=== PATIENT | female | born 1980 | race Caucasian/White ===

== ENCOUNTER 2020-04-08 14:09 | Emergency (ER) | payer OTHER, SELFPAY ==
[2020-04-08 14:50] VITALS: BP 110/74; PULSE 65; RESP 18; TEMP 36.6; O2SAT 100
--- NOTE | 2020-04-08 15:20 | ED.URI ---
HPI - URI/Sore Throat General Chief Complaint: Upper Respiratory Infection Stated Complaint: sore throat,ear pain Time Seen by Provider: 04/08/20 15:20 Source: patient Mode of arrival: ambulatory Limitations: no limitations History of Present Illness HPI Narrative: Beulah Fung is a 39 yo female with a PMH of DM, HTN, GERD, high cholesterol, depression, alopecia, who came to express care with us sore throat that is been bothering her since last Saturday. Has not gotten better Related Data Home Medications Medication Instructions Recorded Confirmed ertugliflozin [Steglatro] 15 mg DAILY 08/26/19 04/08/20 nadolol 20 mg tablet 40 mg PO DAILY tablet 11/19/19 04/08/20 Allergies Allergy/AdvReac Type Severity Reaction Status Date / Time sunflower oil Allergy Mild HEADACHES Verified 04/08/20 15:11 Review of Systems Review of Systems: Narrative: CONSTITUTIONAL: Denies fever, chills, sweats. EYES: Denies visual changes, redness, discharge. ENT: Denies rhinorrhea, congestion, has sore throat, no otalgia. CARDIOVASCULAR: Denies chest pain, palpitations, edema. RESPIRATORY: Denies dyspnea, wheezing, cough GASTROINTESTINAL: Denies abdominal pain, nausea, vomiting, diarrhea. GENITOURINARY: Denies dysuria, hematuria, abnormal discharge SKIN: Denies rash or itching. NEUROLOGIC: Denies numbness, or focal weakness. PSYCHIATRIC: Denies anxiety or depression. 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[facility] [place] Migraine without aura, not intractable, with status migrainosus (~1992) meds tried: midrin (helpful), imitrex (no help), zomig, topamax (helpful) Other and unspecified hyperlipidemia (~2018) Type 2 diabetes mellitus with other circulatory complications (~2006) Unspecified cirrhosis of liver (~2014) LOVE Surgical History Surgical History H/O left knee surgery H/O: hysterectomy History of cholecystectomy (~2018) Status post right foot surgery (~2018) Family History Family History Father Hypertension Cerebrovascular accident Family history of diabetes mellitus in first degree relative Diabetes mellitus Mother Hypertension Other Family history of Alzheimer's disease Family history of cardiovascular disease Family history of chronic obstructive pulmonary disease Family history of congestive heart failure Family history of hearing loss Family history of migraine headaches Family history of obesity Social History Social History Smoking status: Former smoker Smoking end date: 10/14/05 Alcohol intake: former Substance use: unknown Gender identity (if verbalized by the patient): Female Agree to blood products: Yes Comments At time of signature, I agree with nursing past medical, surgical, social and family history. There is no relevant family history pertinent to the presenting complaint. Exam Narrative: Exam Narrative: GENERAL: This is a well-nourished, well-developed patient, in mild distress. HEAD: normocephalic, atraumatic. EYES: Sclera clear/white. Vision is grossly intact. EARS: External ears normal, auditory canals clear and without drainage, TMs normal without perforation. Hearing grossly intact. NOSE: External nose normal without nasal discharge, nares without redness, no rhinorrhea. THROAT: Mucous membranes moist, posterior pharynx erythema with no exudate NECK: Neck supple, mild tenderness CARDIOVASCULAR: Regular rate and rhythm without murmurs, gallops, or rubs. RESPIRATORY: Clear to auscultation. Breath sounds equal bilaterally. No wheezes, rales, or rhon
== END 2020-04-08 15:45 | disposition home or self-care (01) ==
PROVIDERS: Emergency Provider Nurse Practitioner; PCP Family Medicine
DX: J02.9 Acute pharyngitis, unspecified (principal); E11.9 Type 2 diabetes mellitus without complications; I10 Essential (primary) hypertension; E78.00 Pure hypercholesterolemia, unspecified; K21.9 Gastro-esophageal reflux disease without esophagitis; K74.60 Unspecified cirrhosis of liver; K75.81 Nonalcoholic steatohepatitis (NASH); Z87.891 Personal history of nicotine dependence; Z79.4 Long term (current) use of insulin; Z79.84 Long term (current) use of oral hypoglycemic drugs
CPT/HCPCS: 87081; 87880; 99213; G0463

== ENCOUNTER 2020-05-05 13:12 | Emergency (ER) | payer OTHER, SELFPAY ==
[2020-05-05 13:36] VITALS: BP 116/82; PULSE 83; RESP 16; TEMP 36.8; O2SAT 98
--- NOTE | 2020-05-05 13:49 | ED.EXTPRO ---
HPI - Extremity Problem General Chief complaint: Extremity Problem,Nontraumatic Stated complaint: right hand /wrist pain Time Seen by Provider: 05/05/20 13:47 Source: patient and RN notes reviewed Mode of arrival: ambulatory Limitations: no limitations History of Present Illness HPI Narrative: 39-year-old female history of diabetes, hypertension, liver disease presents with concern for right wrist and hand pain for approximately 1 week without injury. She denies any direct trauma or injury. 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 Reports using Tylenol for pain, denies other intervention. Reports pain is at the lateral wrist and beneath digits 2 and 3 of the right hand. MD Complaint: extremity pain Related Data Home Medications Medication Instructions Recorded Confirmed nadolol 20 mg tablet 40 mg PO DAILY tablet 11/19/19 05/05/20 clonidine HCl 0.1 mg tablet 0.1 mg PO BID tablet 04/19/20 05/05/20 Allergies Allergy/AdvReac Type Severity Reaction Status Date / Time sunflower oil AdvReac Mild HEADACHES Verified 05/05/20 13:44 Review of Systems Review of Systems: Narrative: CONSTITUTIONAL: Denies malaise, chills, sweats, or fever. CARDIOVASCULAR: Denies chest pain, palpitations SKIN: Denies bruising, redness MUSCULOSKELETAL: Reports right hand pain beneath digits 2 and 3, right wrist pain NEUROLOGIC: Denies numbness, weakness. 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[facility] [place] Migraine without aura, not intractable, with status migrainosus (~1992) meds tried: midrin (helpful), imitrex (no help), zomig, topamax (helpful) Other and unspecified hyperlipidemia (~2018) Type 2 diabetes mellitus with other circulatory complications (~2006) Unspecified cirrhosis of liver (~2014) LOVE Social History Social History Smoking status: Former smoker Smoking end date: 10/14/05 Alcohol intake: former Substance use: unknown Gender identity (if verbalized by the patient): Female Agree to blood products: Yes Comments At time of signature, agree with nursing past medical, surgical, social and family history. There is no relevant family history pertinent to the presenting complaint Exam Narrative: Exam Narrative: GENERAL: Well-appearing, well-nourished, and in no acute distress. HEAD: Normocephalic, atraumatic. EYES: PERRLA, conjunctivae clear NECK: Supple. CHEST: Speaks in full sentences. No respiratory distress. HEART: Regular rate and rhythm. Normal and equal peripheral pulses. EXTREMITIES: Right wrist, hand, digits have normal strength and sensation, no edema, normal range of motion. 5/5 strength with wrist and digit flexion and extension. Normal sensation with sensitivity to light touch and pain. No open wounds, no skin tenting, no devitalized tissue or atrophy, no trophic changes, no ecchymosis, no obvious deformity, alignment normal, no point tenderness, nearby joints and structures intact. Distal pulses palpable and equal bilaterally, skin warm, dry, pink. Capillary refill less than 3 seconds. SKIN: Warm, dry, no rash. NEURO: Alert and oriented x3. PSYCH: Normal mood and affect Course Course Emergency Course: Patient is aware of diagnosis, understands and agrees to treatment plan. Anticipatory guidance given. Patient agrees to follow-up as directed and is aware of reasons to seek care at the emergency department. Portions of this record may have been created with voice recognition software Vital Signs Vital signs: Vital Signs Temperature 98.3 F
== END 2020-05-05 14:05 | disposition home or self-care (01) ==
PROVIDERS: Emergency Provider Nurse Practitioner; PCP Family Medicine
DX: M77.9 Enthesopathy, unspecified (principal); Z87.891 Personal history of nicotine dependence; E11.9 Type 2 diabetes mellitus without complications; I10 Essential (primary) hypertension
CPT/HCPCS: 99212; G0463

== ENCOUNTER 2021-01-11 09:44 | Outpatient (CLI) | payer OTHER, SELFPAY ==
--- NOTE | 2021-01-11 11:30 | NEURO_ITS ---
Impression: # Complains of pain and paresthesia of hands. # Mild bilateral Carpal Tunnel Syndrome. # Subtle right ulnar neuropathy across the elbow. # Normal needle/EMG exam. # Clinical correlation recommended. Nerve Conduction Studies Anti Sensory Summary Table Stim Site NR Peak (ms) P-T Amp (?V) Site1 Site2 Delta-P (ms) Dist (cm) Gerson (m/s) Left Median Anti Sensory (2-3nd Digit) Wrist 3.4 18.0 Wrist 2-3nd Digit 3.4 14.0 41 Wrist 3.3 69.6 Wrist 2-3nd Digit 3.4 14.0 41 Right Median Anti Sensory (2-3nd Digit) Wrist 3.8 24.5 Wrist 2-3nd Digit 3.8 14.0 37 Wrist 3.8 10.7 Wrist 2-3nd Digit 3.8 14.0 37 Left Radial Anti Sensory (Base 1st Digit) Wrist 2.5 11.6 Wrist Base 1st Digit 2.5 0.0 Right Radial Anti Sensory (Base 1st Digit) Wrist 2.5 30.6 Wrist Base 1st Digit 2.5 0.0 Left Ulnar Anti Sensory (5th Digit) Wrist 2.7 39.6 Wrist 5th Digit 2.7 14.0 52 Right Ulnar Anti Sensory (5th Digit) Wrist 2.7 10.3 Wrist 5th Digit 2.7 14.0 52 Motor Summary Table Stim Site NR Onset (ms) O-P Amp (mV) Site1 Site2 Delta-0 (ms) Dist (cm) Gerson (m/s) Left Median Motor (Abd Poll Brev) Wrist 4.1 4.0 Elbow Wrist 4.7 25.0 53 Elbow 8.8 3.9 Right Median Motor (Abd Poll Brev) Wrist 4.3 1.8 Elbow Wrist 4.2 25.0 60 Elbow 8.5 2.2 Left Ulnar Motor (Abd Dig Minimi) Wrist 2.9 2.6 A Elbow Wrist 4.6 27.0 59 A Elbow 7.5 2.4 Right Ulnar Motor (Abd Dig Minimi) Wrist 2.9 8.4 A Elbow Wrist 5.3 27.0 51 A Elbow 8.2 3.2 B Elbow Wrist 3.4 19.0 56 B Elbow 6.3 5.5 F Wave Studies NR F-Lat (ms) L-R F-Lat (ms) Left Median (Mrkrs) (Abd Poll Brev) 28.46 0.00 Right Median (Mrkrs) (Abd Poll Brev) 28.46 0.00 Left Ulnar (Mrkrs) (Abd Dig Min) 28.75 1.15 Right Ulnar (Mrkrs) (Abd Dig Min) 27.60 1.15 EMG Side Muscle Nerve Root Ins Act Fibs Amp Dur Recrt Comment Right 1stDorInt Ulnar C8-T1 Nml Nml Nml Nml Nml Right Ext Indicis Radial (Post Int) C7-8 Nml Nml Nml Nml Nml Right Ext Digitorum Radial (Post Int) C7-8 Nml Nml Nml Nml Nml Right BrachioRad Radial C5-6 Nml Nml Nml Nml Nml Right PronatorTeres Median C6-7 Nml Nml Nml Nml Nml Right Abd Poll Brev Median C8-T1 Nml Nml Nml Nml Nml Left 1stDorInt Ulnar C8-T1 Nml Nml Nml Nml Nml Left Ext Indicis Radial (Post Int) C7-8 Nml Nml Nml Nml Nml Left Ext Digitorum Radial (Post Int) C7-8 Nml Nml Nml Nml Nml Left BrachioRad Radial C5-6 Nml Nml Nml Nml Nml Left PronatorTeres Median C6-7 Nml Nml Nml Nml Nml Left Abd Poll Brev Median C8-T1 Nml Nml Nml Nml Nml MTDD
== END 2021-01-11 09:45 | disposition home or self-care (01) ==
PROVIDERS: PCP Family Medicine; Visit Provider Plastic Surgery
DX: R53.1 Weakness (principal); G56.03 Carpal tunnel syndrome, bilateral upper limbs; G56.21 Lesion of ulnar nerve, right upper limb
CPT/HCPCS: 95886; 95911

== ENCOUNTER → 2021-01-17 17:59 | Outpatient (CLI) | payer OTHER, SELFPAY ==
--- NOTE | ~2021-01-17 | XR_ITS ---
EXAMINATION: XR hand RT min 3V INDICATION: Right hand pain and swelling TECHNIQUE: Three views of the right hand are obtained. COMPARISON: None available FINDINGS: There is no fracture, dislocation, or subluxation. The bones, soft tissues, and joint space s are normal. IMPRESSION: 1. No acute osseous abnormality. Reviewed, dictated and finalized at location A.
== END ==
PROVIDERS: PCP Plastic Surgery; Visit Provider Plastic Surgery
DX: M19.041 Primary osteoarthritis, right hand (principal)
CPT/HCPCS: 73130

== ENCOUNTER 2021-02-03 14:05 | Outpatient (CLI) | payer OTHER, SELFPAY ==
--- NOTE | ~2021-02-03 | MR_ITS ---
EXAMINATION: MR hand RT wo con DATE: 02/03/2021 15:01 INDICATION: Subcutaneous mass between the right second and third metacarpals TECHNIQUE: Magnetic resonance imaging (MRI) of the right hand was performed without intravenous contr ast to include the metacarpals and digits. Sequences included sagittal, coronal, and axial proton-den sity weighted fast spin echo without and with fat saturation. COMPARISON: None FINDINGS: Bone alignment is normal. Normal marrow signal throughout with no fracture or pathologic marrow repla cing process. Joint spaces are normal with no joint effusions. No cortical erosions. The flexor and e xtensor tendons as well as the collateral ligament complex at the metacarpophalangeal and interphalan geal joints are normal. There is mildly prominent bulging of the fat at the dorsal aspect of the seco nd and third web spaces without a discrete encapsulated lipoma. No abnormal masses or fluid collectio ns identified. IMPRESSION: 1. Increased prominence of the subcutaneous fat about the base of the digits including at the region of concern at the dorsal aspect of the second web space without a discrete lipoma or other abnormal m asses or fluid collections. Reviewed, dictated and finalized at location A. IMPRESSION: 1. Increased prominence of the subcutaneous fat about the base of the digits in cluding at the region of concern at the dorsal aspect of the second web space w ithout a discrete lipoma or other abnormal masses or fluid collections.
== END 2021-02-03 14:06 | disposition home or self-care (01) ==
LOC: ANHIMG 14:07
PROVIDERS: PCP Family Medicine; Visit Provider Plastic Surgery
DX: R22.31 Localized swelling, mass and lump, right upper limb (principal)
CPT/HCPCS: 73218

== ENCOUNTER 2021-03-31 09:47 | Outpatient (CLI) | payer OTHER, SELFPAY ==
--- NOTE | 2021-03-31 | ECG_ITS ---
Measurements Intervals [place] Rate: 113 P: 24 MA: 144 QRS: 55 QRSD: 83 T: 54 QT: 324 QTc: 445 Interpretive Statements SINUS TACHYCARDIA DELAYED PRECORDIAL R/S TRANSITION BORDERLINE ST-T WAVE ABNORMALITY- DIFFUSE LEADS BASELINE ARTIFACT- II, III, AVF ABNORMAL ECG Electronically Signed On 03-31-2021 10:44:44 CDT by Everardo Seymour D.O.
== END 2021-03-31 09:48 | disposition home or self-care (01) ==
PROVIDERS: PCP Family Medicine
DX: Z01.818 Encounter for other preprocedural examination (principal); I10 Essential (primary) hypertension; R94.31 Abnormal electrocardiogram [ECG] [EKG]
CPT/HCPCS: 93005

== ENCOUNTER 2022-05-21 14:21 | Emergency (ER) | payer OTHER, SELFPAY ==
--- NOTE | ~2022-05-21 | XR_ITS ---
EXAM: XR knee RT min 4V DATE: 05/21/2022 16:40 HISTORY: grinding popping . COMPARISON: 11/18/2014. FINDINGS: Decreased mineralization. No fracture or dislocation. No lytic or blastic lesion. Mild tri compartmental osteoarthritis. No erosion or periosteal change. Soft tissues within normal limits. IMPRESSION: No acute osseous finding in the right knee. Reviewed, dictated and finalized at location K.
--- NOTE | ~2022-05-21 | XR_ITS ---
XR ankle RT min 3V 05/21/2022 16:39 INDICATION: Right ankle pain PROCEDURE: 4 views right ankle COMPARISON: No prior studies for comparison. FINDINGS: Fracture, dislocation or subluxation is not identified. There is a possible talocalcaneal c oalition. Mild diffuse soft tissue swelling. No foreign bodies are identified. IMPRESSION: 1: NO ACUTE BONE OR JOINT ABNORMALITY IDENTIFIED. Reviewed, dictated and finalized at location A.
[2022-05-21 14:55] VITALS: BP 115/62; PULSE 90; RESP 16; TEMP 36.2; O2SAT 100
--- NOTE | 2022-05-21 15:01 | ED.LOWEXIN ---
HPI - Extremity Injury (Lower) General Chief Complaint: Extremity Injury, Lower Stated Complaint: Right Knee and ankle Pain Time Seen by Provider: 05/21/22 15:02 Source: patient, RN notes reviewed and old records reviewed Mode of arrival: ambulatory Limitations: no limitations History of Present Illness HPI Narrative: 41-year-old female presents to the [facility] with complaints of right knee and right ankle pain for 10 days. Patient reports that she went to get off the plane while on vacation and her knee and ankle locked causing a possible twisting injury. Mild swelling noted to the lateral aspect right ankle. Full range of motion of knee and ankle. Positive pedal pulse. Sensation intact in all 5 toes with capillary refill under 2 seconds Related Data Home Medications Medication Instructions Recorded Confirmed ondansetron 4 mg disintegrating 4 mg PO DAILY PRN Nausea 09/13/20 05/21/22 tablet hydroxyzine pamoate 25 mg capsule 25 mg PO Q4H PRN Anxiety 10/24/20 05/21/22 (Vistaril) Allergies Allergy/AdvReac Type Severity Reaction Status Date / Time sunflower oil AdvReac Mild HEADACHES Verified 05/21/22 15:04 Review of Systems Review of Systems: All systems reviewed & are unremarkable except as noted in HPI and below Constitutional: Constitutional: Reports no additional constitutional complaints, Denies chills and Denies fever(s) Eyes: Eyes: Reports no additional eye complaints ENT: Reports system reviewed and no additional complaints, except as documented Cardiovascular: Cardiovascular: Reports no additional cardiovascular complaints Respiratory: Respiratory: Reports no additional respiratory complaints Gastrointestinal: Gastrointestinal: Reports no additional gastrointestinal complaints Musculoskeletal: Musculoskeletal: Reports as per HPI, Reports arthralgias and Reports joint swelling Integumentary/Breasts: Skin/Breast: Reports system reviewed and no additional complaints, except as docu Neurologic: Reports system reviewed and no additional complaints, except as documented Psychiatric: Psychiatric: Reports no additional psychiatric complaints Allergic/Immunologic: Allergic/Immunologic: Reports no additional allergic/immunologic complaints [facility], [facility] Past Medical History Medical History Abnormal CT of brain Abnormal vaginal bleeding Acute bilateral otitis media Alopecia Anxiety and depression Avulsion fracture of right calcaneus with delayed healing (~2016) Benign essential hypertension Bipolar 2 disorder Body mass index (BMI) 21 to less than 23 (04/06/16) Body mass index (BMI) 35 or more (05/05/19) Cat scratch of forearm Chronic GERD Dyslipidemia Ganglion cyst HTN (hypertension) Hx of renal calculi (~07/2021) Hyperlipidemia associated with type 2 diabetes mellitus (~2018) Hypertension complicating diabetes (~2013) Iron deficiency anemia due to chronic blood loss (~2016) 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: [facility] Microalbuminuria due to type 2 diabetes mellitus (~2017) Migraine without aura, not intractable, with status migrainosus (~1992) meds tried: midrin (helpful), imitrex (no help), zomig, topamax (helpful) Nausea & vomiting Other and unspecified hyperlipidemia (~2018) Portal hypertension (~07/2021) Recurrent major depressive disorder in partial remission (~1992) Renal cyst, acquired (~2011) Right otitis media Type 2 diabetes mellitus with hyperglycemia Type 2 diabetes mellitus with other circulatory complications (~2006) Unspecified cirrhosis of liver (~2014) LOVE Vaginal yeast infection Vitamin D deficiency Surgical History Surgical History H/O left knee surgery H/O: hysterectomy History of cholecystectomy (~2017) History of urethral stent (~07/2021) Status post right foot surgery (~2017) Family History Family History (Reviewed 05/22/22 @ 09:57 by Jacqueline Watkins A
== END 2022-05-21 17:16 | disposition home or self-care (01) ==
PROVIDERS: Emergency Provider Nurse Practitioner; PCP Nurse Practitioner Family
DX: M17.11 Unilateral primary osteoarthritis, right knee (principal); S93.401A Sprain of unspecified ligament of right ankle, initial encounter; X58.XXXA Exposure to other specified factors, initial encounter; F41.9 Anxiety disorder, unspecified; I10 Essential (primary) hypertension; E78.5 Hyperlipidemia, unspecified; E11.9 Type 2 diabetes mellitus without complications; K75.81 Nonalcoholic steatohepatitis (NASH); K21.9 Gastro-esophageal reflux disease without esophagitis; F32.A Depression, unspecified; Z79.4 Long term (current) use of insulin
CPT/HCPCS: 73564; 73610; 99214; G0463

== ENCOUNTER 2022-06-08 00:51 | Day surgery (SDC) | payer OTHER, SELFPAY ==
[2022-06-01 14:33] VITALS: BMI 42.0
[2022-06-08 08:50] VITALS: BP 129/84; PULSE 95; RESP 20; TEMP 36; O2SAT 100; BMI 42.9
[2022-06-08] MEDS: LACTATED RINGERS 1,000 ML 150 ML IV CONT (09:15)
[2022-06-08 09:17] LABS: Glucose Point of Care 237 mg/dl (65-105)
--- NOTE | 2022-06-08 09:30 | WPDANESEPPF ---
Anes - Initial Pre Proc Eval Procedure: Operation Date: 06/08/22 09:30 Proposed Procedures p Esophagogastroduodenoscopy - Rl Farfan MD Date/Time: 06/08/22 09:30 Surgeon: Rl Farfan MD Pre Op Diagnosis: nausea, GERD Patient Data Age: 41 Gender: F Height: 1.55 m Weight: 103 kg Last Vital Signs Temp 96.8 F L 06/08/22 08:50 Pulse 95 06/08/22 08:50 Resp 20 06/08/22 08:50 BP 129/84 06/08/22 08:50 Pulse Ox 100 06/08/22 08:50 O2 Del Method Room Air 06/08/22 08:50 Allergies Allergy/AdvReac Type Severity Reaction Status Date / Time sunflower oil Allergy Intermediate Hives Verified 06/08/22 08:57 Home Medications Medication Instructions Recorded Confirmed Type ondansetron 4 mg disintegrating 4 mg PO DAILY PRN Nausea 09/13/20 06/08/22 History tablet albuterol sulfate 90 mcg/actuation 1 puff inhalation Q4H PRN 09/19/20 06/08/22 Rx aerosol inhaler shortness of breath or wheezing #6.7 grams hydroxyzine pamoate 25 mg capsule 25 mg PO Q4H PRN Anxiety 10/24/20 06/08/22 History (Vistaril) glucagon 3 mg/actuation nasal 3 mg intranasal ONCE PRN 07/06/21 06/08/22 Rx spray (Baqsimi) hypoglycemia #1 ea duloxetine 30 mg capsule,delayed 30 mg PO BID #180 caps 09/22/21 06/08/22 Rx release cholecalciferol (vitamin D3) 50 50 mcg PO DAILY #30 caps 10/31/21 06/08/22 Rx mcg (2,000 unit) capsule atorvastatin 80 mg tablet 80 mg PO QHS #90 tabs 11/30/21 06/08/22 Rx betamethasone valerate 0.1 % 1 applic topical BID PRN rash #45 01/22/22 06/08/22 Rx topical cream grams clotrimazole 1 % topical cream 1 applic topical Q12H 8 weeks #45 01/22/22 06/08/22 Rx grams dexlansoprazole 60 mg 60 mg PO DAILY #30 caps 03/19/22 06/08/22 Rx capsule,biphase delayed release (Dexilant) lisinopril 2.5 mg tablet 2.5 mg PO DAILY #90 tabs 03/30/22 06/08/22 Rx topiramate 200 mg tablet (Topamax) 200 mg PO DAILY #30 tabs 04/24/22 06/08/22 Rx clonidine HCl 0.1 mg tablet 0.1 mg PO BID #60 tabs 05/24/22 06/08/22 Rx dicyclomine 20 mg tablet 20 mg PO TID PRN abdominal 05/28/22 06/08/22 Rx discomfort 1 month #90 tabs OneTouch Verio test strips (blood #100 ea 05/29/22 06/08/22 Rx sugar diagnostic) dulaglutide 1.5 mg/0.5 mL 1.5 mg (0.5 mL) subcut WEEKLY 90 05/29/22 06/08/22 Rx subcutaneous pen injector days #6 mL (Trulicity) [id number]-[id number] 250 2 tablet PO Q6H PRN Migraine 06/01/22 06/08/22 History mg-250 mg-65 mg tablet (Excedrin Headache Migraine) diphenhydramine HCl 25 mg capsule 25 mg PO TID PRN itching 06/01/22 06/08/22 History (Benadryl) quetiapine 50 mg tablet 100 mg PO HS 06/01/22 06/08/22 History trazodone 100 mg tablet 100 mg PO HS 06/01/22 06/08/22 History buspirone 10 mg tablet 10 mg PO BID 06/04/22 06/08/22 History insulin regular hum U-500 conc 500 65 unit (0.13 mL) subcut BIDWMEAL 06/04/22 06/08/22 Rx unit/mL(3 mL) subcut pen 90 days #24 mL cyclobenzaprine 10 mg tablet 10 mg PO TID PRN muscle spasm #30 06/07/22 06/08/22 Rx tabs Laboratory Tests 06/08/22 09:12 POC Capillary Glucose 237 mg/dl H mg/dl (65-105) Patient hx anesthesia problems: none Family hx anesthesia problems: none Results Review: All pre-operative results and documents have been reviewed as part of the pre-operative evaluation. [facility] Past Medical History Medical History Abnormal CT of brain Abnormal vaginal bleeding Acute bilateral otitis media Alopecia Anxiety and depression Avulsion fracture of right calcaneus with delayed healing (~2016) Benign essential hypertension Bipolar 2 disorder Body mass index (BMI) 21 to less than 23 (04/06/16) Body mass index (BMI) 35 or more (05/05/19) Cat scratch of forearm Chronic GERD Cirrhosis Dyslipidemia Ganglion cyst HTN (hypertension) Hx of renal calculi (~07/2021) Hyperlipidemia associated with type 2 diabetes mellitus (
--- NOTE | 2022-06-08 09:34 | WPDHPUPDATE1 ---
History and Physical Update Update Date/Time: 06/08/22 09:34 History and Physical has been reviewed, including an updated exam of the patient. There are NO changes in the patient's condition. Risks, benefits, and alternatives have been discussed and questions answered. Patient agrees to proceed with procedure.
[2022-06-08 09:46] VITALS: BP 156/99; PULSE 99; RESP 31; O2SAT 100
[2022-06-08 09:56] VITALS: BP 134/87; PULSE 93; RESP 14; O2SAT 100
[2022-06-08 10:06] VITALS: BP 151/95; PULSE 88; RESP 13; O2SAT 100
[2022-06-08 10:13] LABS: Glucose Point of Care 185 mg/dl (65-105)
== END 2022-06-08 10:16 | disposition home or self-care (01) ==
PROVIDERS: PCP Nurse Practitioner Family; Visit Provider Internal Medicine Gastroenterology
PROC: 0DJ08ZZ Inspection of Upper Intestinal Tract, Via Natural or Artificial Opening Endoscopic (ICD-10-PCS; CPT 43235; principal; 2022-06-08 09:30)
DX: K74.60 Unspecified cirrhosis of liver (principal); K21.9 Gastro-esophageal reflux disease without esophagitis; R11.0 Nausea; I85.00 Esophageal varices without bleeding; K29.50 Unspecified chronic gastritis without bleeding; Z79.82 Long term (current) use of aspirin; Z79.4 Long term (current) use of insulin; Z79.51 Long term (current) use of inhaled steroids; L65.9 Nonscarring hair loss, unspecified; F31.81 Bipolar II disorder; I10 Essential (primary) hypertension; E78.5 Hyperlipidemia, unspecified; K58.9 Irritable bowel syndrome, unspecified; K76.6 Portal hypertension; K31.89 Other diseases of stomach and duodenum; E11.59 Type 2 diabetes mellitus with other circulatory complications; K75.81 Nonalcoholic steatohepatitis (NASH); E55.9 Vitamin D deficiency, unspecified; Z90.49 Acquired absence of other specified parts of digestive tract; Z87.891 Personal history of nicotine dependence; E66.01 Morbid (severe) obesity due to excess calories; Z68.41 Body mass index [BMI] 40.0-44.9, adult; R11.2 Nausea with vomiting, unspecified; R12 Heartburn; N28.1 Cyst of kidney, acquired; R80.8 Other proteinuria
CPT/HCPCS: 43239; 82948; 88305; J2704; J7120

== ENCOUNTER 2022-11-17 17:59 | Emergency (ER) | payer OTHER, SELFPAY ==
--- NOTE | ~2022-11-17 | CT_ITS ---
CT Abdomen and Pelvis with contrast. History: Abdominal pain. Spiral CT of the abdomen and pelvis was performed after the administration of intravenous contrast. 1 00 cc of Omnipaque 350 was administered intravenously without complication. Dose reduction technique was used on this scan by utilizing automated exposure control and iterative reconstruction technique. The dose-length product (DLP) was 1851.80 mGy-cm. COMPARISON: 06/02/2012 Findings: Scans through the lung bases demonstrate mild atelectatic change. Probable nodular contour of the liver. Spleen is enlarged, measuring 18.3 cm in length. Cholecystecto my clips are present. 2 mm nonobstructing right renal stones are present. The pancreas, adrenals and left kidney are within normal limits. No evidence of aortic aneurysm. No lymphadenopathy is seen. There is no evidence of bowel obstruction. There is no evidence to suggest acute appendicitis or dive rticulitis. Images through the pelvis were performed. Urinary bladder unremarkable. Patient is post hysterectomy. No pelvic mass seen. No ascites. No ascites is seen. Impression: No evidence for perirectal abscess. Probable cirrhotic liver with associated splenomegaly. Small nonobstructing right renal stones. Reviewed, dictated and finalized at [facility]. 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 Probable cirrhotic liver with associated splenomegaly. Small nonobstructing right renal stones.
[2022-11-17 18:07] VITALS: BP 154/94; PULSE 76; RESP 15; TEMP 36.7; O2SAT 100
--- NOTE | 2022-11-17 18:29 | ED.GENADULT ---
HPI - General Adult General Chief complaint: Unspecified Stated complaint: hemorrhoids/pain Time Seen by Provider: 11/17/22 18:29 Source: patient Mode of arrival: ambulatory Limitations: no limitations History of Present Illness HPI narrative: Patient is a 42 y/o female who presents to the ED with c/o rectal discomfort. Patient reports she had a colonoscopy in August of last year which showed internal hemorrhoids. Patient reports having pain over the last 2 weeks which she has attributed to her hemorrhoids. She has been using Preparation H ointments without much relief. She has had intermittent bleeding associated with the hemorrhoids. She also complains of some lower abdominal pain, but denies fever, nausea, vomiting, urinary symptoms. Patient sees a GI specialist at [facility], but has not contacted him regarding the symptoms. Related Data Home Medications Medication Instructions Recorded Confirmed ondansetron 4 mg disintegrating 4 mg PO DAILY PRN Nausea 09/13/20 10/25/22 tablet hydroxyzine pamoate 25 mg capsule 25 mg PO Q4H PRN Anxiety 10/24/20 10/25/22 (Vistaril) eqyalii-phuzybbteitpu-etcqbsyb 250 2 tablet PO Q6H PRN Migraine 06/01/22 10/25/22 mg-250 mg-65 mg tablet (Excedrin Headache Migraine) diphenhydramine HCl 25 mg capsule 25 mg PO TID PRN itching 06/01/22 10/25/22 (Benadryl) atorvastatin 80 mg tablet 80 mg PO QHS 10/25/22 10/25/22 buspirone 15 mg tablet 15 mg PO BID 10/25/22 10/25/22 dexlansoprazole 60 mg 60 mg PO DAILY 10/25/22 10/25/22 capsule,biphase delayed release quetiapine 50 mg tablet 100 mg PO QAM 10/25/22 10/25/22 quetiapine 50 mg tablet,extended 100 mg PO QPM 10/25/22 10/25/22 release 24 hr trazodone 150 mg tablet 150 mg PO QHS 10/25/22 10/25/22 Allergies Allergy/AdvReac Type Severity Reaction Status Date / Time sunflower oil Allergy Intermediate Hives Verified 11/14/22 11:03 Review of Systems Review of Systems: CONSTITUTIONAL: Denies fever, chills, or sweats. CARDIOVASCULAR: Denies chest pain, palpitations, or edema. RESPIRATORY: Denies cough or dyspnea. GASTROINTESTINAL: See HPI. GENITOURINARY: Denies dysuria or hematuria. All systems reviewed & are unremarkable except as noted in HPI and below [facility] Past Medical History Medical History Abnormal CT of brain Abnormal vaginal bleeding Acute bilateral otitis media Alopecia Anxiety and depression Avulsion fracture of right calcaneus with delayed healing (~2016) Benign essential hypertension Bipolar 2 disorder BMI 40.0-44.9, adult BMI greater than 30 Body mass index (BMI) 21 to less than 23 (04/06/16) Body mass index (BMI) 35 or more (05/05/19) Cat scratch of forearm Chronic GERD Cirrhosis Dyslipidemia Esophageal varices determined by endoscopy Ganglion cyst Gastroesophageal reflux disease HTN (hypertension) Hx of renal calculi (~07/2021) Hyperlipidemia associated with type 2 diabetes mellitus (~2018) Hypertension complicating diabetes (~2013) Iron deficiency anemia due to chronic blood loss (~2016) 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: [facility] Irritable bowel syndrome with alternating bowel habits Microalbuminuria due to type 2 diabetes mellitus (~2017) Migraine without aura, not intractable, with status migrainosus (~1992) meds tried: midrin (helpful), imitrex (no help), zomig, topamax (helpful) Nausea & vomiting Other and unspecified hyperlipidemia (~2018) Portal hypertension (~07/2021) Portal hypertensive gastropathy Recurrent major depressive disorder in partial remission (~1992) Renal cyst, acquired (~2011) Right otitis media Type 2 diabetes mellitus with hyperglycemia Type 2 diabetes mellitus with other circulatory complications (~2006) Unspecified cirrhosis of liver (~2014) LOVE Vaginal yeast infection Vitamin D deficiency Surgical History Surgical History H/O l
[2022-11-17 19:06] VITALS: BP 134/87; PULSE 72; RESP 16; O2SAT 99
[2022-11-17 19:08] LABS: Alanine Aminotransferase 36 U/L (6-35); Albumin Level 3.6 g/dL (3.5-5.1); Alkaline Phosphatase 157 U/L (38-126); Anion Gap 6 mmol/L (8-16); Aspartate Amino Transferase 34 U/L (14-36); Bilirubin,Total 0.7 mg/dL (0.2-1.3); Blood Urea Nitrogen 21 mg/dL (7-17); Calcium 8.4 mg/dL (8.4-10.2); Carbon Dioxide 24 mmol/L (22-30); Chloride 103 mmol/L (98-107); Estimated CRCL calculation 82 ml/min; Estimated Glomerular Filt Rate > 60; Glucose 602 mg/dL (65-110); Potassium 4.3 mmol/L (3.4-5.0); Sodium 133 mmol/L (137-145)
[2022-11-17 19:43] LABS: Beta-Hydroxybutyrate/Acetoacetate 0.25 mmol/L (0.02-0.27)
[2022-11-17] MEDS: SODIUM CHLORIDE 0.9% IV 1,000 ML 999 ML IV CONT (19:55)
[2022-11-17 19:56] LABS: Basophils Percent Auto 0.6 % (0.2-1.2); Eosinophils Absolute Auto 0.1 K/mm3 (0-0.3); Eosinophils Percent Auto 2.1 % (0-4.4); Hematocrit 37.4 % (37.0-47.0); Hemoglobin 12.4 g/dL (12.0-15.0); Immature Granulocyte Absolute 0.02 K/mm3 (0.00-0.031); Immature Granulocyte Percent A 0.6 % (0-0.5); Immature Platelet Fraction Pct 8.8 % (0.9-11.2); Lymphocytes Absolute Auto 0.81 K/mm3 (0.9-3.2); Lymphocytes Percent Auto 24.5 % (18.3-44.2); Mean Corpuscular HGB Conc 33.2 g/dl (32-36); Mean Corpuscular Hemoglobin 27.6 pg (26-34); Mean Corpuscular Volume 83.1 fl (80-100); Mean Platelet Volume 11.2 fl (7.4-10.4); Monocytes Absolute Auto 0.3 K/mm3 (0.1-0.6); Monocytes Percent Auto 7.6 % (2.6-8.5); Neutrophils Absolute Auto 2.1 K/mm3 (1.3-6.7); Neutrophils Percent Auto 64.6 % (45.5-73.1); Platelet Count Result 59 k/mm3 (150-375); Red Cell Distribution Width 14.5 % (11.5-14.5); White Blood Count 3.3 K/mm3 (4.5-10.0)
[2022-11-17 19:58] LABS: Appearance Urine Clear (Clear); Bilirubin Urine Negative (Negative); Blood Urine Negative (Negative); Color Urine Yellow (Yellow); Glucose Urine UA 3+ mg/dL (Negative); Ketones Urine Negative (Negative); Leukocyte Esterase Ur Negative LEU/UL (Negative); Mucus Urine Rare /lpf; Nitrate Urine Negative (Negative); Protein Urine Negative (Negative); RBC Urine 0-2 /hpf (0-2); Squamous Epithelial Cell Urine Many /hpf (Few); WBC Urine 0-3 /hpf; pH Urine 6.5 (5.0-9.0)
[2022-11-17 20:01] LABS: Add Urine Microscopic? YES
--- NOTE | 2022-11-17 20:01 | PC.NURSE ---
pt to CT via stretcher
[2022-11-17 20:28] LABS: Hemoglobin A1C 10.1 % (<5.7)
[2022-11-17 20:44] VITALS: BP 137/69; PULSE 68; RESP 18; O2SAT 98
[2022-11-17 20:54] LABS: Glucose Point of Care 441 mg/dl (65-105)
[2022-11-17 22:16] VITALS: BP 145/85; PULSE 71; RESP 18; O2SAT 98
== END 2022-11-17 22:44 | disposition home or self-care (01) ==
PROVIDERS: Emergency Provider Physician Assistant; PCP Family Medicine
DX: K64.9 Unspecified hemorrhoids (principal); E11.65 Type 2 diabetes mellitus with hyperglycemia; D69.6 Thrombocytopenia, unspecified; E78.5 Hyperlipidemia, unspecified; I10 Essential (primary) hypertension; Z87.891 Personal history of nicotine dependence
CPT/HCPCS: 36415; 74177; 80053; 81001; 82010; 82948; 83036; 85025; 85055; 96360; 99284; J7030; Q9967

== ENCOUNTER 2022-12-06 16:00 | Outpatient (CLI) | payer OTHER, SELFPAY ==
--- NOTE | ~2022-12-06 | US_ITS ---
EXAMINATION: US renal BI DATE: 12/06/2022 17:37 INDICATION: Calculus of kidney. TECHNIQUE: Multiple ultrasound grayscale images of the kidneys were obtained. COMPARISON: CT abdomen and pelvis 11/17/2022 FINDINGS: The right kidney measures 13.2 x 5.9 x 6.0 cm. The left kidney measures 12.6 x 4.5 x 5.7 cm. The kidn eys demonstrate normal parenchymal echogenicity. There is a 2.1 cm cyst in left kidney. There is no h ydronephrosis. The bladder is not well distended. IMPRESSION: 1. Normal kidney sizes. No hydronephrosis. Reviewed, dictated and finalized at location [facility]. 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
== END 2022-12-06 16:01 | disposition home or self-care (01) ==
PROVIDERS: PCP Family Medicine; Visit Provider Internal Medicine Nephrology
DX: N28.1 Cyst of kidney, acquired (principal); N20.0 Calculus of kidney
CPT/HCPCS: 76775

== ENCOUNTER 2022-12-25 09:22 | Outpatient (CLI) | payer OTHER, SELFPAY ==
--- NOTE | ~2022-12-25 | NM_ITS ---
EXAM: NM gastric emptying study DATE: 12/25/2022 14:17 INDICATION: Nausea and vomiting. TECHNIQUE: A gastric emptying study was performed using the methodology of Nicanor MENDEZ, et al. J Nucl Med 2007; 48:568-572. The patient was given a meal consisting of omental labeled with 0.891 mCi Tc-9 9m sulfur colloid. Simultaneous anterior and posterior 1-min images of the abdomen were obtained with the patient supine at multiple time points over a total period of 4 hours. The geometric mean of ant erior and posterior views was determined, and the percentage retention was calculated for each time p oint. COMPARISON: CT abdomen and pelvis 11/17/2022 FINDINGS: Gastric retention of the radiotracer-labeled meal was 5%, 5%, and 3% at the 1-hour, 2-hour , and 4-hour time points, respectively. With this technique, apparent rapid gastric emptying is sugge sted by <30% gastric retention at 1 hour. Delayed gastric emptying is defined by gastric retention of >90% at 1 hour, >60% retention at 2 hours, or >10% retention at 4 hours. IMPRESSION: 1. Rapid gastric emptying. Reviewed, dictated and finalized at location [facility]. IMPRESSION: 1. Rapid gastric emptying.
== END 2022-12-25 09:23 | disposition home or self-care (01) ==
PROVIDERS: PCP Family Medicine; Referring Provider Podiatrist Foot & Ankle Surgery; Visit Provider Nurse Practitioner Family
DX: R11.2 Nausea with vomiting, unspecified (principal); M79.671 Pain in right foot; K31.84 Gastroparesis
CPT/HCPCS: 73630; 78264; A9541

== ENCOUNTER 2023-01-15 11:00 | Outpatient (RCR) | payer OTHER, SELFPAY ==
[2023-01-15 13:22] VITALS: BMI 47.9
[2023-01-15 15:08] VITALS: BMI 47.9
== END 2023-03-18 14:06 | disposition home or self-care (01) ==
LOC: ANHDMC 11:00
PROVIDERS: PCP Family Medicine; Referring Provider Family Medicine; Visit Provider Nurse Practitioner Family
DX: E11.65 Type 2 diabetes mellitus with hyperglycemia (principal); Z79.4 Long term (current) use of insulin; Z71.89 Other specified counseling; Z71.3 Dietary counseling and surveillance
CPT/HCPCS: 97802; G0108

== ENCOUNTER 2023-02-06 14:52 | Outpatient (CLI) | payer OTHER, SELFPAY ==
--- NOTE | ~2023-02-06 | MM_ITS ---
EXAMINATION: MM screening ruben BI w talia HISTORY: Screening mammogram TECHNIQUE: Craniocaudal and mediolateral oblique 3-D tomosynthesis images were obtained and synthetic 2-D images were generated. CAD analysis was submitted and interpreted. COMPARISON: No prior mammogram is available for comparison at this institution. BREAST PARENCHYMAL COMPOSITION: There are scattered areas of fibroglandular density. FINDINGS: There is no evidence of suspicious mass, calcification, or architectural distortion to sugg est malignancy in either breast. There has been no suspicious interval change. IMPRESSION: 1. No mammographic evidence of malignancy. 2. Recommend routine screening mammography in one year. BI-RADS Category 1: Negative Reviewed, dictated and finalized at location A.
== END 2023-02-06 14:53 | disposition home or self-care (01) ==
LOC: ANHIMG 14:54
PROVIDERS: PCP Family Medicine; Visit Provider Nurse Practitioner Family
DX: Z12.31 Encounter for screening mammogram for malignant neoplasm of breast (principal)
CPT/HCPCS: 77063; 77067

== ENCOUNTER 2023-05-27 09:58 | Outpatient (CLI) | payer OTHER, SELFPAY ==
[2023-05-27 13:07] LABS: Basophils Percent Auto 0.7 % (0.2-1.2); Eosinophils Absolute Auto 0.1 K/mm3 (0-0.3); Eosinophils Percent Auto 2.1 % (0-4.4); Hematocrit 39.5 % (37.0-47.0); Hemoglobin 12.4 g/dL (12.0-15.0); Immature Granulocyte Absolute 0.01 K/mm3 (0.00-0.031); Immature Granulocyte Percent A 0.2 % (0-0.5); Immature Platelet Fraction Pct 8.8 % (0.9-11.2); Lymphocytes Absolute Auto 1.18 K/mm3 (0.9-3.2); Lymphocytes Percent Auto 19.3 % (18.3-44.2); Mean Corpuscular HGB Conc 31.4 g/dl (32-36); Mean Corpuscular Hemoglobin 28.8 pg (26-34); Mean Corpuscular Volume 91.9 fl (80-100); Mean Platelet Volume 12.2 fl (7.4-10.4); Monocytes Absolute Auto 0.4 K/mm3 (0.1-0.6); Monocytes Percent Auto 6.2 % (2.6-8.5); Neutrophils Absolute Auto 4.4 K/mm3 (1.3-6.7); Neutrophils Percent Auto 71.5 % (45.5-73.1); Platelet Count Result 74 k/mm3 (150-375); Red Cell Distribution Width 15.6 % (11.5-14.5); White Blood Count 6.1 K/mm3 (4.5-10.0)
[2023-05-27 13:09] LABS: Cholesterol 143 mg/dL (0-200); HDL Direct 40 mg/dL; Triglycerides 207 mg/dL (<150)
[2023-05-27 13:19] LABS: LDL Cholesterol Direct 72 mg/dL
[2023-05-27 13:27] LABS: Vitamin D 25 Hydroxy 45.3 ng/mL
== END 2023-05-27 09:59 | disposition home or self-care (01) ==
LOC: ANHGOSHLAB 10:01
PROVIDERS: PCP Family Medicine; Visit Provider Nurse Practitioner Family
DX: Z00.00 Encounter for general adult medical examination without abnormal findings (principal); Z13.220 Encounter for screening for lipoid disorders; Z13.29 Encounter for screening for other suspected endocrine disorder; Z13.21 Encounter for screening for nutritional disorder
CPT/HCPCS: 36415; 80061; 82306; 84443; 85025; 85055

== ENCOUNTER 2023-07-31 11:18 | Outpatient (CLI) | payer OTHER, SELFPAY ==
[2023-07-31 17:15] LABS: Appearance Urine Cloudy (Clear); Bacteria Urine 1+ /hpf; Bilirubin Urine Negative (Negative); Blood Urine Negative (Negative); Color Urine Dark Yellow (Yellow); Glucose Urine UA Negative (Negative); Hyaline Casts Urine Present /lpf; Ketones Urine Trace mg/dL (Negative); Leukocyte Esterase Ur Negative LEU/UL (Negative); Nitrate Urine Negative (Negative); Non Pathogenic Casts 0-2; Protein Urine Negative (Negative); RBC Urine 0-2 /hpf (0-2); Specific Grav Ur 1.026 (1.001-1.035); Squamous Epithelial Cell Urine Moderate /hpf (Few); WBC Urine 0-5 /hpf; pH Urine 6.5 (5.0-9.0)
[2023-07-31 17:25] LABS: Add Urine Microscopic? YES
== END 2023-07-31 11:19 | disposition home or self-care (01) ==
LOC: ANHWCLAB 11:18
PROVIDERS: PCP Family Medicine; Visit Provider Internal Medicine Endocrinology, Diabetes & Metabolism
DX: R10.9 Unspecified abdominal pain (principal); R35.0 Frequency of micturition
CPT/HCPCS: 81001

== ENCOUNTER 2023-08-29 14:58 | Outpatient (CLI) | payer OTHER, SELFPAY ==
--- NOTE | ~2023-08-29 | MR_ITS ---
MRI of the left knee Clinical history: Pain Technique: Coronal proton density and proton density-weighted images, sagittal proton-density and T2 fat-sat images, and axial proton-density fat-saturated images were acquired. Findings: Anterior and posterior cruciate ligaments are intact. Medial collateral ligament and the la teral collateral ligament complex are intact. Popliteus tendon is intact. Medial and lateral menisci are intact, without evidence of tear. There is mild to moderate chondral malacia the patellar apex. Remaining articular cartilage is well p reserved. Bone marrow signals are unremarkable. Extensor mechanism is intact. No significant joint effusion or Kwan's cyst. 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 No other significant findings. Reviewed, dictated and finalized at location . 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 No other significant findings.
== END 2023-08-29 14:59 | disposition home or self-care (01) ==
PROVIDERS: PCP Family Medicine; Visit Provider Nurse Practitioner Family
DX: M25.562 Pain in left knee (principal); M94.262 Chondromalacia, left knee
CPT/HCPCS: 73721

== ENCOUNTER 2024-02-05 13:47 | Outpatient (CLI) | payer OTHER, SELFPAY ==
--- NOTE | ~2024-02-05 | XR_ITS ---
Clinical Indication: Shortness of breath PA and lateral views of the chest: Comparison: None Findings: The lungs are clear, without evidence of focal consolidation or pleural effusion. Cardiome diastinal silhouette is within normal limits. Bones and soft tissues are unremarkable. Impression: Normal chest. Reviewed, dictated and finalized at [facility]. Impression: Normal chest.
== END 2024-02-05 13:48 | disposition home or self-care (01) ==
LOC: ANHIMG 13:48
PROVIDERS: PCP Nurse Practitioner Family; Visit Provider Nurse Practitioner Family
DX: R06.02 Shortness of breath (principal)
CPT/HCPCS: 71046

== ENCOUNTER 2024-08-04 02:32 | Day surgery (SDC) | payer OTHER, SELFPAY ==
[2024-07-24 08:58] VITALS: BMI 39.5
[2024-08-04] VITALS (7 sets, daily range): BP systolic 79–103; BP diastolic 43–70; PULSE 81–93; RESP 15–20; TEMP 36; O2SAT 98–100; BMI 37.4
--- NOTE | 2024-08-04 09:46 | WPDANESEPPF ---
Anes - Initial Pre Proc Eval Procedure: Operation Date: 08/04/24 11:00 Proposed Procedures p Esophagogastroduodenoscopy - Rl Farfan MD Date/Time: 08/04/24 09:46 Surgeon: Rl Farfan MD Pre Op Diagnosis: iron deficiency anemia Patient Data Age: 43 Gender: F Height: 1.57 m Weight: 98 kg Allergies Allergy/AdvReac Type Severity Reaction Status Date / Time sunflower oil Allergy Intermediate Hives Verified 08/04/24 09:45 sumatriptan [From Imitrex] AdvReac Intermediate Muscle Verified 08/04/24 09:45 Spasms Home Medications Medication Instructions Recorded Confirmed Type glucagon 3 mg/actuation nasal 3 mg intranasal ONCE PRN 07/06/21 07/24/24 Rx spray (Baqsimi) hypoglycemia #1 ea duloxetine 30 mg capsule,delayed 30 mg PO BID #180 caps 09/22/21 07/24/24 Rx release betamethasone valerate 0.1 % 1 applic topical BID PRN rash #45 01/22/22 07/24/24 Rx topical cream grams OneTouch Verio test strips (blood #100 ea 05/29/22 07/24/24 Rx sugar diagnostic) xtkwvgy-uxqeswrwysqzf-oawfcsot 250 2 tablet PO Q6H PRN Migraine 06/01/22 07/24/24 History mg-250 mg-65 mg tablet (Excedrin Headache Migraine) diphenhydramine HCl 25 mg capsule 25 mg PO TID PRN itching 06/01/22 07/24/24 History (Benadryl) buspirone 15 mg tablet 15 mg PO BID 10/25/22 07/24/24 History trazodone 150 mg tablet 150 mg PO QHS 10/25/22 07/24/24 History pen needle, diabetic 32 gauge x #300 ea 02/13/23 07/24/24 Rx (BD Ultra-Fine Shantelle Pen Needle) lisinopril 2.5 mg tablet 2.5 mg PO DAILY #90 tabs 05/27/23 07/24/24 Rx hydroxyzine pamoate 25 mg capsule 50 mg PO Q4H PRN Anxiety 07/25/23 07/24/24 History (Vistaril) dexlansoprazole 60 mg See Rx Instructions .Route 11/05/23 07/24/24 Rx capsule,biphase delayed release .COMPLEX #30 caps prazosin 2 mg capsule 2 mg PO QHS 01/27/24 07/24/24 History propranolol 10 mg tablet 20 mg PO Q12H 01/27/24 07/24/24 History cariprazine 1.5 mg capsule 6 mg PO DAILY 01/29/24 07/24/24 History (Vraylar) cyclobenzaprine 10 mg tablet 10 mg PO TID PRN muscle spasm #60 02/03/24 07/24/24 Rx tabs albuterol sulfate 90 mcg/actuation 1 puff inhalation Q4H PRN 04/06/24 07/24/24 Rx aerosol inhaler shortness of breath or wheezing #6.7 grams ondansetron 4 mg disintegrating 4 mg PO DAILY PRN Nausea #20 tabs 04/06/24 07/24/24 Rx tablet insulin regular hum U-500 conc 500 See Rx Instructions .Route 05/05/24 07/24/24 Rx unit/mL(3 mL) subcut pen (Humulin .COMPLEX #39 mL R U-500 (Conc) Insulin Kwikpen) atorvastatin 80 mg tablet See Rx Instructions .Route 05/07/24 07/24/24 Rx .COMPLEX #90 tabs topiramate 200 mg tablet (Topamax) 200 mg PO DAILY #90 tabs 05/07/24 07/24/24 Rx tirzepatide 7.5 mg/0.5 mL 7.5 mg (0.5 mL) subcut WEEKLY #2 mL 05/26/24 07/24/24 Rx subcutaneous pen injector (Trent) blood-glucose sensor ([employer] G7 #9 ea 06/04/24 07/24/24 Rx Sensor device) empagliflozin 25 mg tablet 25 mg PO DAILY #90 tabs 06/04/24 07/24/24 Rx (Jardiance) cholecalciferol (vitamin D3) 50 50 mcg PO DAILY 07/24/24 07/24/24 History mcg (2,000 unit) capsule (Vitamin D3) clotrimazole 1 % topical cream 1 applic topical Q12H PRN Rash 07/24/24 07/24/24 History ferrous sulfate 325 mg (65 mg 325 mg PO DAILY 07/24/24 07/24/24 History iron) tablet folic acid 1 mg tablet 1 mg PO DAILY 07/24/24 07/24/24 History hyoscyamine sulfate 0.125 mg tablet 0.125 mg PO QID PRN Abdominal Pain 07/24/24 07/24/24 History lidocaine 3 %-hydrocortisone 0.5 % 1 applic RECTAL BID PRN Pain 07/24/24 07/24/24 History rectal cream mupirocin 2 % topical ointment 1 applic topical BID PRN INFECTION 07/24/24 07/24/24 History rizatriptan 5 mg tablet See Rx Instructions PO .COMPLEX 07/24/24 07/24/24 History PRN Migraine Headache vitamin B complex 1 tablet PO DAILY 07/24/24 07/24/24 History clonidine HCl 0.1 mg tablet 0.1 mg PO BID #180 tabs 07/27/24 Rx Patient hx anesthesia
[2024-08-04] MEDS: LACTATED RINGERS 1,000 ML 150 ML IV CONT (10:09)
--- NOTE | 2024-08-04 10:23 | PM.HPGS ---
History of Present Illness History of Present Illness Consent: Risks, benefits, and alternatives have been discussed and questions answered. Patient agrees to proceed with procedure. 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 [facility], remote h/o EV on propranolol, denies gib, doing well with ppi Review of Systems Review of Systems: All systems reviewed & are unremarkable except as noted in HPI and below PMFSH Past Medical History Medical History Abnormal CT of brain Abnormal vaginal bleeding Acute bilateral otitis media Alopecia Anxiety and depression Avulsion fracture of right calcaneus with delayed healing (~2016) Benign essential hypertension Bipolar 2 disorder BMI 40.0-44.9, adult BMI greater than 30 Body mass index (BMI) 21 to less than 23 (04/06/16) Body mass index (BMI) 35 or more (05/05/19) Cat scratch of forearm Chronic GERD Chronic nausea Cirrhosis Dyslipidemia Esophageal varices determined by endoscopy Ganglion cyst Gastroesophageal reflux disease HTN (hypertension) Hx of renal calculi (~07/2021) Hyperlipidemia associated with type 2 diabetes mellitus (~2018) Hypertension complicating diabetes (~2013) Iron deficiency anemia due to chronic blood loss (~2016) 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: [facility] Irritable bowel syndrome with alternating bowel habits Left knee pain Medial meniscus tear Microalbuminuria due to type 2 diabetes mellitus (~2017) Migraine without aura, not intractable, with status migrainosus (~1992) meds tried: midrin (helpful), imitrex (no help), zomig, topamax (helpful) Nausea & vomiting Other and unspecified hyperlipidemia (~2018) Portal hypertension (~07/2021) Portal hypertensive gastropathy Recurrent major depressive disorder in partial remission (~1992) Renal cyst, acquired (~2011) Right otitis media Type 2 diabetes mellitus with hyperglycemia Type 2 diabetes mellitus with other circulatory complications (~2006) Unspecified cirrhosis of liver (~2014) LOVE Vaginal yeast infection Vitamin D deficiency Surgical History Surgical History H/O left knee surgery H/O: hysterectomy History of cholecystectomy (~2017) History of urethral stent (~07/2021) Status post right foot surgery (~2018) Family History Family History Father Hypertension Cerebrovascular accident Family history of diabetes mellitus in first degree relative Diabetes mellitus Mother Hypertension Other Family history of Alzheimer's disease Family history of cardiovascular disease Family history of chronic obstructive pulmonary disease Family history of congestive heart failure Family history of hearing loss Family history of migraine headaches Family history of obesity Social History Social History Social History: , no children. Unemployed. Caffeine-rarely Smoking packs per day: 1 Smoking cigarettes per day: 20.0 Years smoked: 13 Smoking pack-years: 13.00 Smoking status: Former smoker Tobacco type: e-cigarettes/vaping Smoking end date: 10/14/06 Alcohol intake: never Substance use: never Substance use type: does not use Last use: Quit 1996 Do You Feel Safe in your Home?: Yes Lack of Transportation: No Lack of Food: Never True Current Housing: I Have Housing Concerned About Future Housing: No Difficulty Paying Gas/Electric Bills: No Difficulty Paying for Meds: No Currently Unemployed: Decline to Answer Education: Associate Degree Living arrangements: with family Additional living arrangements comments: lives with soon to be x- Occupation/Education: occupation Gender identity (if verbalized by the patient): Fe
[2024-08-04 11:38] LABS: Glucose Point of Care 77 mg/dl (65-105)
== END 2024-08-04 11:16 | disposition home or self-care (01) ==
PROVIDERS: PCP Nurse Practitioner Family; Visit Provider Internal Medicine Gastroenterology
PROC: 0DJ08ZZ Inspection of Upper Intestinal Tract, Via Natural or Artificial Opening Endoscopic (ICD-10-PCS; CPT 43235; principal; 2024-08-04 11:00)
DX: K29.50 Unspecified chronic gastritis without bleeding (principal); I85.00 Esophageal varices without bleeding; K31.84 Gastroparesis; K21.9 Gastro-esophageal reflux disease without esophagitis; D50.9 Iron deficiency anemia, unspecified; K74.69 Other cirrhosis of liver; I10 Essential (primary) hypertension; E78.5 Hyperlipidemia, unspecified; E11.65 Type 2 diabetes mellitus with hyperglycemia; E11.59 Type 2 diabetes mellitus with other circulatory complications; E55.9 Vitamin D deficiency, unspecified; F41.8 Other specified anxiety disorders; F31.81 Bipolar II disorder; R11.0 Nausea; K58.8 Other irritable bowel syndrome; K76.6 Portal hypertension; E66.01 Morbid (severe) obesity due to excess calories; Z68.37 Body mass index [BMI] 37.0-37.9, adult; Z79.82 Long term (current) use of aspirin; Z79.51 Long term (current) use of inhaled steroids; Z79.4 Long term (current) use of insulin; Z79.85 Long-term (current) use of injectable non-insulin antidiabetic drugs; Z79.84 Long term (current) use of oral hypoglycemic drugs; Z98.890 Other specified postprocedural states; Z90.49 Acquired absence of other specified parts of digestive tract; Z96.0 Presence of urogenital implants; Z87.891 Personal history of nicotine dependence; Z87.442 Personal history of urinary calculi; Z82.49 Family history of ischemic heart disease and other diseases of the circulatory system
CPT/HCPCS: 43235; 82948; J2704; J7120

== ENCOUNTER 2024-10-06 17:17 | Emergency (ER) | payer OTHER, SELFPAY ==
[2024-10-06] VITALS (8 sets, daily range): BP systolic 105–121; BP diastolic 59–95; PULSE 110–124; RESP 12–18; TEMP 36.4–36.6; O2SAT 97–100
--- NOTE | ~2024-10-06 | CT_ITS ---
EXAMINATION: CTA chest PE abdomen pel DATE: 10/06/2024 21:28 SAWMILL MANAGER INDICATION: Hematemesis with right-sided abdominal pain TECHNIQUE: Computed tomographic angiography (CTA) of the chest was performed, along with multiple con tiguous axial images of the abdomen and pelvis with 100 mL Omnipaque-350 intravenous contrast. The do se-length product was 1855.16 mGy-cm. Maximum intensity projection 3D-reconstructions of the aorta an d other arteries were constructed by the technologist on a separate workstation. FINDINGS/OBSERVATIONS: PULMONARY ARTERIES: No filling defect is identified within the main or proximal pulmonary artery. The main pulmonary artery is not enlarged. THORACIC AORTA: No aneurysmal dilatation or dissection is present. The great vessels are intact LUNGS: The lungs are clear. MEDIASTINUM: No morphologically suspicious or pathologically enlarged lymph nodes are identified with in the mediastinum or bilateral axilla. BONES OF THE CHEST: No acute fracture. No significant degenerative disease. No lytic or blastic lesions. HEART: The heart is of normal size, without significant pericardial effusion. LIVER: The liver is nodular in contour. Perihepatic simple fluid. GALLBLADDER AND BILIARY SYSTEM: The gallbladder is surgically absent. PANCREAS: The pancreas enhances homogeneously without ductal dilatation. SPLEEN: The spleen enhances homogeneously and is enlarged measuring 15 cm in longitudinal dimension. Perisple mike simple fluid KIDNEYS: The bilateral kidneys enhance symmetrically without hydronephrosis or renal calculi. Simple cyst rede monstrated within the upper pole of the left kidney ADRENAL GLANDS: Unremarkable. GASTROINTESTINAL TRACT: Increased attenuation within the stomach, for which recent oral intake versus blood products is suspe cted for which clinical correlation is needed. Punctate foci of air are also present. APPENDIX: A single punctate focus of air is identified within the distal most portion of the appendix with sign ificant surrounding inflammatory change and mural thickening within the adjacent cecum. Hyperemia is noted within the wall of the appendix without significant appendiceal dilatation (measuring only 6.4 mm in greatest caliber). The mural thickening continues with in the ascending colon to the level of t he hepatic flexure, as well as retrograde to the level of the terminal ileum. VASCULATURE: Unremarkable. No aneurysmal dilatation or significant stenosis. LYMPH NODES: No pathologically enlarged or morphologically suspicious lymph nodes within the retroperitoneum or at the root of the mesentery. PELVIC STRUCTURES: The bladder is distended, and otherwise unremarkable. The uterus is either surgically absent or atrophic. Free fluid extends into the pelvis along the paracolic gutters BODY WALL AND MUSCULOSKELETAL: Degenerative disease within the lumbosacral spine, most prominent at the level of L5/S1 with osteophy te formation, disc space narrowing, endplate changes and vacuum phenomena. Calcified disc protrusion is identified at the level of L5/S1. IMPRESSION: No pulmonary embolus No aortic dissection. Indeterminate findings within the appendix, terminal ileum and cecum, as detailed above. Suspect recent oral intake within the stomach versus blood products for which clinical correlation is needed. Reviewed, dictated and finalized at location A. ILL MANAGER IMPRESSION: No pulmonary embolus No aortic dissection. Indeterminate findings within the appendix, terminal ileum and cecum, as detail ed above. Suspect recent oral intake within the stomach versus blood products for which c linical correlation is needed.
--- NOTE | ~2024-10-06 | XR_ITS ---
CHEST RADIOGRAPH CLINICAL HISTORY: chest pain, vomiting . COMPARISON: 02/05/2024 TECHNIQUE: Single portable view of the chest. FINDINGS Device projecting to the left of midline, superficial to the chest. The remainder of the cardiomediastinal silhouette is otherwise unremarkable. The lungs are clear. Visualized osseous structures and soft tissues are unremarkable. IMPRESSION: No focal infiltrate or effusion. Reviewed, dictated and finalized at location A. ER OPERATOR
--- NOTE | 2024-10-06 19:45 | ECG_ITS ---
Test Date: 2024-10-06 21:32:44 Measurements Intervals [place] Rate: 114 P: 12 ME: 129 QRS: 34 QRSD: 85 T: 29 QT: 337 QTc: 466 Interpretive Statements SINUS TACHYCARDIA low volateg ABNORMAL RHYTHM ECG No previous ECG available for comparison Electronically Signed On 10-07-2024 13:46:39 LABOR RELATIONS OR PERSONNEL NEGOTIATOR by Clarissa Blount M.D.
--- NOTE | 2024-10-06 19:46 | ED.NAVMDI ---
HPI - Nausea/Vomiting/Diarrhea General Chief complaint: Nausea/Vomiting/Diarrhea Stated complaint: vomiting blood Time Seen by Provider: 10/06/24 19:32 History of Present Illness HPI Narrative: 44-year-old female with a history of insulin-dependent diabetes, ORDOÑEZ cirrhosis, bipolar disorder, hyperlipidemia, hypertension, esophageal varices presents to the ED via EMS for hematemesis since 4:00 p.m. today. Patient states she has had 2 small quantities of hematemesis that she describes as burgundy color. She contacted EMS was transferred to the ED. Upon arrival to the ED she had approximately 20 cc of burgundy colored emesis. She is reporting chronic chest pain and shortness of breath with seems to be worse since the symptoms started. She describes the pain as dull and aching in the center of her chest. She currently has a Holter monitor in place for outpatient workup of this. She is reporting right upper quadrant/flank pain as well. She endorses a history of hysterectomy and cholecystectomy. She reports several weeks of bright red blood in her stools and is working on scheduling an outpatient colonoscopy her GI physician at [facility]. Patient states she has never had bleeding esophageal varices. Denies coffee-ground emesis and melena. States she is post be taking a PPI, however has not been taking it due to insurance issues. She is not anticoagulated. She is also endorsing lightheadedness, no syncope. Patient also states she has been told she has ?fluid on her abdomen? recently. EGD: 08/04/2024 (Dr. Tristan) for GERD and established cirrhosis - Small grade 1 varices, no endoscopic treatment needed - Mild gastritis with mild portal hypertensive changes - Small amount of food/bezoar in stomach - Next EGD in 2 years Related Data Home Medications ?Medication ?Instructions ?Recorded ?Confirmed ?Last Taken ?Type pcodxsg-dbdriqvnivybu-rtchpvzg 250 2 tablet PO Q6H PRN Migraine 06/01/22 10/05/24 Unknown History mg-250 mg-65 mg tablet (Excedrin Headache Migraine) diphenhydramine HCl 25 mg capsule 25 mg PO TID PRN itching 06/01/22 10/05/24 Unknown History (Benadryl) buspirone 15 mg tablet 15 mg PO BID 10/25/22 10/05/24 08/03/24 History hydroxyzine pamoate 25 mg capsule 50 mg PO Q4H PRN Anxiety 07/25/23 10/05/24 Unknown History (Vistaril) prazosin 2 mg capsule 2 mg PO QHS 01/27/24 10/05/24 08/03/24 History propranolol 10 mg tablet 20 mg PO Q12H 01/27/24 10/05/24 08/04/24 History cholecalciferol (vitamin D3) 50 50 mcg PO DAILY 07/24/24 10/05/24 08/03/24 History mcg (2,000 unit) capsule (Vitamin D3) clotrimazole 1 % topical cream 1 applic topical Q12H PRN Rash 07/24/24 10/05/24 Unknown History ferrous sulfate 325 mg (65 mg 325 mg PO DAILY 07/24/24 10/05/24 08/03/24 History iron) tablet folic acid 1 mg tablet 1 mg PO DAILY 07/24/24 10/05/24 08/03/24 History lidocaine 3 %-hydrocortisone 0.5 % 1 applic RECTAL BID PRN Pain 07/24/24 10/05/24 08/03/24 History rectal cream rizatriptan 5 mg tablet See Rx Instructions PO .COMPLEX 07/24/24 10/05/24 Unknown History PRN Migraine Headache vitamin B complex 1 tablet PO DAILY 07/24/24 10/05/24 08/03/24 History doxepin 10 mg capsule 10 mg PO QHS 08/13/24 10/05/24 Unknown History atorvastatin 80 mg tablet 80 mg PO QHS 09/21/24 10/05/24 Unknown History cariprazine 6 mg capsule (Vraylar) 6 mg PO DAILY 09/21/24 10/05/24 Unknown History Allergies Allergy/AdvReac Type Severity Reaction Status Date / Time sunflower oil Allergy Intermediate Hives Verified 10/06/24 17:27 sumatriptan (From Imitrex) AdvReac Intermediate Muscle Verified 10/06/24 17:27 Spasms Review of Systems Review of Systems: All systems reviewed & are unremarkable except as noted in HPI and below PMFSH Past Medical History Medical History Rectal bleeding Left knee pain Medial meniscus tear Chronic nausea Gastroesophageal reflux disease Esophageal varices determined by endoscopy Irritable bowel syndrome with alternating bowel habits Portal hypertensive gastropathy Cirrhosis Bipolar 2 disorder Alopecia Right otitis media Cat scratch of forearm Body mass index (BMI) 35 or more (05/05/19) Body mass index (BMI) 21 to less than 23 (04/06/16) Vaginal yeast infection Type 2 diabetes mellitus with hyperglycemia Benign essential hypertension Acute bilateral otitis media Abnormal vaginal bleeding Abnormal CT of brain Nausea & vomiting Hx of renal calculi (~07/2021) Portal hypertension (~07/2021) Chronic GERD BMI greater than 30 Ganglion cyst Vitamin D deficiency Dyslipidemia BMI 40.0-44.9, adult Anxiety and depression HTN (hypertension) Type 2 diabetes mellitus with other circulatory complications (~2006) Avulsion fracture of right calcaneus with delayed healing (~2016) Other and unspecified hyperlipidemia (~2018) Hypertension complicating diabetes (~2013) Iron deficiency anemia due to chronic blood loss (~2016) 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 Casillas: [facility] Microalbuminuria due to type 2 diabetes mellitus (~2017) Migraine without aura, not intractable, with status migrainosus (~1992) meds tried: midrin (helpful), imitrex (no help), zomig, topamax (helpful) Recurrent major depressive disorder in partial remission (~1992) Renal cyst, acquired (~2011) Hyperlipidemia associated with type 2 diabetes mellitus (~2018) Unspecified cirrhosis of liver (~2014) ORDOÑEZ Surgical History Surgical History History of urethral stent (~07/2021) H/O: hysterectomy H/O left knee surgery Status post right foot surgery (~2017) History of cholecystectomy (~2017) Family History Family History Father Hypertension Cerebrovascular accident Family history of diabetes mellitus in first degree relative Diabetes mellitus Mother Hypertension Other Family history of Alzheimer's disease Family history of cardiovascular disease Family history of chronic obstructive pulmonary disease Family history of congestive heart failure Family history of hearing loss Family history of migraine headaches Family history of obesity Social History Social History Social History: , no children. Unemployed. Caffeine-rarely Smoking packs per day: 1 Smoking cigarettes per day: 20.0 Years smoked: 13 Smoking pack-years: 13.00 Smoking status: Former smoker Tobacco type: e-cigarettes/vaping Smoking end date: 10/14/06 Alcohol intake: never Substance use: never Substance use type: does not use Last use: Quit 1997 Do You Feel Safe in your Home?: Yes Lack of Transportation: No Lack of Food: Never True Current Housing: I Have Housing Concerned About Future Housing: No Difficulty Paying Gas/Electric Bills: No Difficulty Paying for Meds: No Currently Unemployed: Decline to Answer Education: Associate Degree Living arrangements: with family Additional living arrangements comments: lives with soon to be x- Occupation/Education: occupation Gender identity (if verbalized by the patient): Female Spiritual care concerns: No Agree to blood products: Yes Exam Narrative: GENERAL: Well-appearing, well-nourished, and in no acute distress. HEAD: Normocephalic, atraumatic. EYES: EOMI. ENT: Nares clear, no rhinorrhea or epistaxis. Mucous membranes moist. NECK: Supple. CHEST: Clear to auscultation. No respiratory distress. HEART: Regular rate and rhythm. No murmur heard. Normal peripheral pulses. ABDOMEN: Normoactive bowel sounds. Abdomen soft with minimal tenderness in the right upper quadrant/right flank. No rebound or rigidity. No CVA tenderness EXTREMITIES: Normal range of motion. No edema. SKIN: Warm, dry, no rash. NEURO: No focal deficits. Alert and oriented x3 Course Vital Signs Vital signs: Vital Signs Temperature 97.6 F 10/06/24 17:31 Pulse Rate 124 H 10/06/24 17:31 Respiratory Rate 18 10/06/24 17:31 Blood Pressure 105/62 10/06/24 17:31 Pulse Oximetry 100 10/06/24 17:31 Temperature 97.9 F 10/07/24 02:15 Pulse Rate 113 H 10/07/24 02:15 Respiratory Rate 14 10/07/24 02:15 Blood Pressure 104/56 L 10/07/24 02:15 Pulse Oximetry 98 10/07/24 02:15 MDM - Nausea/Vomiting/Diarrhea MDM Narrative Medical decision making narrative: 44-year-old female with history of Ordoñez cirrhosis, GERD, insulin-dependent diabetes, esophageal varices presents to emergency department for total of 3 episodes of hematemesis since 4:00 p.m. triage vital significant for tachycardia 124, blood pressure 105/62. Patient is overall well-appearing on exam. Abdomen is soft with minimal tenderness in the right upper quadrant. She is also reporting several weeks of chest pain and shortness of breath, seems to be worse with the symptoms. Will obtain lab work, coags, type and screen, CTA chest with CT abdomen pelvis he, gastroccult and Hemoccult and provide IV fluids, Protonix and octreotide. Patient was started on Rocephin as well for short term prophylaxis against SBP as she states she has been told she has ?fluid on her abdomen?. Lab work shows stable hemoglobin at 13.5, nonspecific leukocytosis of 10.3. Chemistries with a BUN of 30, creatinine of 1. Lactic acid bumped to 2.5. Chronic transaminitis with an AST of 47, ALT of 40 bilirubin of 2. EKG shows sinus tachycardia with a rate of 114, normal TX, normal QRS duration, QTC, ischemic changes. Troponin undetectable. I was notified by nursing staff the patient had a large episode of hematemesis measuring approximately 600 cc. Blood pressure remained stable. Tachycardia is improving to 106. Will order a unit of blood. MELD score is 12 pts with 6% estimated 3-month mortality rate. Unfortunately we do not have GI beyond 1 more day and I feel patient will need admission with GI consults for longer. Plant to transfer to [facility]. Discussed case with GI physician, Dr. Polanco, who agrees to consult on admission and agrees with current management. Discussed with hospitalist, Dr. Tapia, who accepts admission to [facility]. Serial H&Hs, pain medications, scheduled Protonix ordered. Octreotide ongoing. When CTA chest abdomen pelvis shows indeterminate findings of the appendix, cecum and terminal ileum. I discussed these findings with [facility] transfer center has a call out to the patient's accepting physician and surgeon to update with these results. Awaiting return call. Given these findings, patient was switched from Rocephin to Zosyn. Pending bed assignment at time of sign-out to Dr. White. Lab Data 10/07/24 02:20 10/06/24 20:12 Labs: Lab Results 10/06/24 10/06/24 10/06/24 Range/Units 20:12 20:12 20:54 WBC 10.3 H (4.5-10.0) K/mm3 RBC 4.38 (4.2-5.4) M/mm3 Hgb 13.5 (12.0-15.0) g/dL Hct 39.8 (37.0-47.0) % MCV 90.9 (80-100) fl MCH 30.8 (26-34) pg MCHC 33.9 (32-36) g/dl RDW 15.7 H (11.5-14.5) % Plt Count 141 L D (150-375) k/mm3 MPV 11.6 H (7.4-10.4) fl Immature Gran % (Auto) 0.4 (0-0.5) % Neut % (Auto) 63.2 (45.5-73.1) % Lymph % (Auto) 23.9 (18.3-44.2) % [place] % (Auto) 8.8 H (2.6-8.5) % Eos % (Auto) 2.8 (0-4.4) % Baso % (Auto) 0.9 (0.2-1.2) % Lymph # (Auto) 2.47 (0.9-3.2) K/mm3 [place] # (Auto) 0.9 H (0.1-0.6) K/mm3 Eos # (Auto) 0.3 (0-0.3) K/mm3 Baso # (Auto) 0.1 (0.0-0.1) K/mm3 Abs Immat Gran (auto) 0.04 H (0.00-0.031) K/mm3 Absolute Neuts (auto) 6.5 (1.3-6.7) K/mm3 Absolute Nucleated RBC 0.000 (0.0-0.012) K/mm3 Nucleated RBC % 0.0 (0.0-0.2) % PT 16.6 H (11.1-14.7) Seconds INR 1.3 APTT 40.5 H (22.3-36.8) Seconds Sodium 141 (137-145) mmol/L Potassium 3.7 (3.4-5.0) mmol/L Chloride 112 H (98-107) mmol/L Carbon Dioxide 22 (22-30) mmol/L Anion Gap 7 (4-12) mmol/L BUN 30 H (7-17) mg/dL Creatinine 1.00 (0.7-1.0) mg/dL Estim Creat Clear Calc 65 ml/min Estimated GFR 60 (59 - ) Glucose 310 H (65-110) mg/dL Lactic Acid 2.5 H (0.7-2.0) mmol/L Calcium 9.4 (8.4-10.2) mg/dL Magnesium 1.6 (1.6-2.3) mg/dL Total Bilirubin 2.0 H (0.2-1.3) mg/dL AST 47 H (14-36) U/L ALT 40 H (6-35) U/L Alkaline Phosphatase 86 (38-126) U/L Troponin I < 0.012 Cancelled (0.000-0.034) ng/mL Total Protein 6.0 L (6.3-8.2) g/dL Albumin 3.8 (3.5-5.1) g/dL Lipase 90 (23-300) U/L Urine Color Yellow (Yellow) Urine Appearance Cloudy H (Clear) Urine pH 6.0 (5.0-9.0) Ur Specific Lynn 1.040 H (1.001-1.035) Urine Protein Negative (Negative) mg/dL Urine Glucose (UA) 3+ H (Negative) mg/dL Urine Ketones 1+ H (Negative) mg/dL Ur Blood (Man) Negative (Negative) Urine Nitrate Negative (Negative) Urine Bilirubin Negative (Negative) Urine Urobilinogen 1.0 (<2.0) mg/dL Add Ur Microanalysis Reviewed Leukocyte Esterase Rfl Negative (Negative) KATIE/UL Urine RBC 6-10 H (0-2) /hpf Urine WBC 6-10 H (0-3) /hpf Ur Squamous Epith Cells Many H (Few) /hpf Urine Bacteria 2+ H /hpf Urine Casts 0-2 POC Urine HCG, Qual Negative (Negative) Blood Type O Positive Antibody Screen Negative Crossmatch See Detail 10/07/24 Range/Units 02:20 WBC (4.5-10.0) K/mm3 RBC (4.2-5.4) M/mm3 Hgb 12.2 (12.0-15.0) g/dL Hct 36.9 L (37.0-47.0) % MCV (80-100) fl MCH (26-34) pg MCHC (32-36) g/dl RDW (11.5-14.5) % Plt Count (150-375) k/mm3 MPV (7.4-10.4) fl Immature Gran % (Auto) (0-0.5) % Neut % (Auto) (45.5-73.1) % Lymph % (Auto) (18.3-44.2) % [place] % (Auto) (2.6-8.5) % Eos % (Auto) (0-4.4) % Baso % (Auto) (0.2-1.2) % Lymph # (Auto) (0.9-3.2) K/mm3 [place] # (Auto) (0.1-0.6) K/mm3 Eos # (Auto) (0-0.3) K/mm3 Baso # (Auto) (0.0-0.1) K/mm3 Abs Immat Gran (auto) (0.00-0.031) K/mm3 Absolute Neuts (auto) (1.3-6.7) K/mm3 Absolute Nucleated RBC (0.0-0.012) K/mm3 Nucleated RBC % (0.0-0.2) % PT (11.1-14.7) Seconds INR APTT (22.3-36.8) Seconds Sodium (137-145) mmol/L Potassium (3.4-5.0) mmol/L Chloride (98-107) mmol/L Carbon Dioxide (22-30) mmol/L Anion Gap (4-12) mmol/L BUN (7-17) mg/dL Creatinine (0.7-1.0) mg/dL Estim Creat Clear Calc ml/min Estimated GFR (59 - ) Glucose (65-110) mg/dL Lactic Acid 1.5 (0.7-2.0) mmol/L Calcium (8.4-10.2) mg/dL Magnesium (1.6-2.3) mg/dL Total Bilirubin (0.2-1.3) mg/dL AST (14-36) U/L ALT (6-35) U/L Alkaline Phosphatase (38-126) U/L Troponin I (0.000-0.034) ng/mL Total Protein (6.3-8.2) g/dL Albumin (3.5-5.1) g/dL Lipase (23-300) U/L Urine Color (Yellow) Urine Appearance (Clear) Urine pH (5.0-9.0) Ur Specific Lynn (1.001-1.035) Urine Protein (Negative) mg/dL Urine Glucose (UA) (Negative) mg/dL Urine Ketones (Negative) mg/dL Ur Blood (Man) (Negative) Urine Nitrate (Negative) Urine Bilirubin (Negative) Urine Urobilinogen (<2.0) mg/dL Add Ur Microanalysis Leukocyte Esterase Rfl (Negative) KATIE/UL Urine RBC (0-2) /hpf Urine WBC (0-3) /hpf Ur Squamous Epith Cells (Few) /hpf Urine Bacteria /hpf Urine Casts POC Urine HCG, Qual (Negative) Blood Type Antibody Screen Crossmatch Discharge Plan Discharge Clinical Impression: Acute upper gastrointestinal bleeding Patient Disposition: Acute Care Hospital Condition: Serious Patient Language: Ivorian Prescriptions: No Action (DME) OneTouch Verio test strips Strip See Rx Instructions .Route Qty: 100 11RF Rx Instructions: Monitor glucose 3-4 times a day propranolol 10 mg tablet 20 mg PO Q12H prazosin 2 mg capsule 2 mg PO QHS doxepin 10 mg capsule 10 mg PO QHS Jardiance 25 mg tablet 25 mg PO DAILY Qty: 90 1RF (DME) Exclusively.in G7 Sensor Device See Rx Instructions .ROUTE .MEDSUPPLY Qty: 9 3RF Rx Instructions: Use to monitor glcuose atorvastatin 80 mg tablet 80 mg PO QHS Vraylar 6 mg capsule 6 mg PO DAILY Baqsimi 3 mg/actuation spray,non-aerosol 3 mg intranasal ONCE PRN (Reason: hypoglycemia) Qty: 1 0RF Rx Instructions: as a single dose buspirone 15 mg tablet 15 mg PO BID diphenhydramine HCl [Benadryl] 25 mg Capsule 25 mg PO TID PRN (Reason: itching) Excedrin Migraine 250-250-65 mg Tablet 2 tablet PO Q6H MDD 4 PRN (Reason: Migraine Headache) clotrimazole 1 % cream 1 applic topical Q12H PRN (Reason: Rash) rizatriptan 5 mg tablet See Rx Instructions PO .COMPLEX PRN (Reason: Migraine Headache) Rx Instructions: take 1 tab at onset of headache; if no relief may repeat 1 tab after at least 2 hrs; max = 3 tabs/24 hr PO lidocaine HCl-hydrocortison ac 3-0.5 % cream 1 applic RECTAL BID PRN (Reason: Pain) ferrous sulfate 325 mg (65 mg iron) Tablet 325 mg PO DAILY vitamin B complex [B Complex-Vitamin B12] Tablet 1 tablet PO DAILY folic acid 1 mg Tablet 1 mg PO DAILY cholecalciferol (vitamin D3) [Vitamin D3] 50 mcg (2,000 unit) Capsule 50 mcg PO DAILY duloxetine 30 mg capsule,delayed release(DR/EC) 30 mg PO BID Qty: 180 1RF betamethasone valerate 0.1 % cream 1 applic topical BID PRN (Reason: rash) Qty: 45 1RF (DME) pen needle, diabetic [BD Ultra-Fine Shantelle Pen Needle] 32 gauge x 5/32 needle See Rx Instructions .ROUTE .MEDSUPPLY Qty: 300 1RF Rx Instructions: three times daily hydroxyzine pamoate [Vistaril] 25 mg capsule 50 mg PO Q4H PRN (Reason: Anxiety) cyclobenzaprine 10 mg tablet 10 mg PO TID PRN (Reason: muscle spasm) Qty: 60 1RF albuterol sulfate 90 mcg/actuation HFA aerosol inhaler 1 puff INHALATION Q4H PRN (Reason: shortness of breath or wheezing) Qty: 6.7 1RF Humulin R U-500 (Conc) Kwikpen 500 unit/mL (3 mL) insulin pen See Rx Instructions .ROUTE .COMPLEX Qty: 39 0RF Dose Instruction: INJECT 70 UNITS SUBCUTANEOUSLY THREE TIMES DAILY WITH MEALS Rx Instructions: INJECT 70 UNITS SUBCUTANEOUSLY THREE TIMES DAILY WITH MEALS topiramate [Topamax] 200 mg tablet 200 mg PO DAILY Qty: 90 0RF Mounjaro 10 mg/0.5 mL pen injector 10 mg subcut WEEKLY Qty: 6 1RF lisinopril 2.5 mg tablet 2.5 mg PO DAILY Qty: 90 1RF ondansetron 4 mg tablet,disintegrating 4 mg PO DAILY PRN (Reason: Nausea) Qty: 20 0RF dexlansoprazole 60 mg capsule,biphase delayed releas 60 mg PO DAILY 30 Days Qty: 30 12RF Follow-up/Referrals: PHYSICIAN NOT ON STAFF,NONSTAFF [Primary Care Provider] -
[2024-10-06 20:20] LABS: Basophils Absolute Auto 0.1 K/mm3 (0.0-0.1); Basophils Percent Auto 0.9 % (0.2-1.2); Eosinophils Absolute Auto 0.3 K/mm3 (0-0.3); Eosinophils Percent Auto 2.8 % (0-4.4); Hematocrit 39.8 % (37.0-47.0); Hemoglobin 13.5 g/dL (12.0-15.0); Immature Granulocyte Absolute 0.04 K/mm3 (0.00-0.031); Immature Granulocyte Percent A 0.4 % (0-0.5); Lymphocytes Absolute Auto 2.47 K/mm3 (0.9-3.2); Lymphocytes Percent Auto 23.9 % (18.3-44.2); Mean Corpuscular HGB Conc 33.9 g/dl (32-36); Mean Corpuscular Hemoglobin 30.8 pg (26-34); Mean Corpuscular Volume 90.9 fl (80-100); Mean Platelet Volume 11.6 fl (7.4-10.4); Monocytes Absolute Auto 0.9 K/mm3 (0.1-0.6); Monocytes Percent Auto 8.8 % (2.6-8.5); Neutrophils Absolute Auto 6.5 K/mm3 (1.3-6.7); Neutrophils Percent Auto 63.2 % (45.5-73.1); Platelet Count Result 141 k/mm3 (150-375); Red Blood Count 4.38 M/mm3 (4.2-5.4); Red Cell Distribution Width 15.7 % (11.5-14.5); White Blood Count 10.3 K/mm3 (4.5-10.0)
[2024-10-06 20:30] LABS: INR 1.3; Prothrombin Time 16.6 Seconds (11.1-14.7)
[2024-10-06] MEDS: ONDANSETRON INJ 4 MG/2 ML VIAL IV PUSH (20:30)
[2024-10-06] MEDS: PANTOPRAZOLE SODIUM IV 40 MG VIAL 80 MG IV PUSH (20:30)
[2024-10-06 20:31] LABS: Partial Thromboplastin Time 40.5 Seconds (22.3-36.8)
[2024-10-06] MEDS: OCTREOTIDE ACETATE 50 MCG/ML VIAL IV PUSH (20:31)
[2024-10-06] MEDS: SODIUM CHLORIDE 0.9% IV 1,000 ML 999 ML IV CONT (20:32)
[2024-10-06 20:33] LABS: Alanine Aminotransferase 40 U/L (6-35); Albumin Level 3.8 g/dL (3.5-5.1); Alkaline Phosphatase 86 U/L (38-126); Anion Gap 7 mmol/L (4-12); Aspartate Amino Transferase 47 U/L (14-36); Blood Urea Nitrogen 30 mg/dL (7-17); Calcium 9.4 mg/dL (8.4-10.2); Carbon Dioxide 22 mmol/L (22-30); Chloride 112 mmol/L (98-107); Estimated CRCL calculation 65 ml/min; Estimated Glomerular Filt Rate 60; Glucose 310 mg/dL (65-110); Lipase 90 U/L (23-300); Magnesium 1.6 mg/dL (1.6-2.3); Potassium 3.7 mmol/L (3.4-5.0); Sodium 141 mmol/L (137-145)
[2024-10-06 20:34] LABS: Lactic Acid Reflex 2.5 mmol/L (0.7-2.0)
[2024-10-06 20:44] LABS: Troponin I < 0.012 ng/mL (0.000-0.034)
[2024-10-06 20:45] LABS: Add Urine Microscopic? YES; Appearance Urine Cloudy (Clear); Bacteria Urine 2+ /hpf; Bilirubin Urine Negative (Negative); Blood Urine Negative (Negative); Color Urine Yellow (Yellow); Glucose Urine UA 3+ mg/dL (Negative); Ketones Urine 1+ mg/dL (Negative); Leukocyte Esterase Ur Negative LEU/UL (Negative); Need Manual Microscopic Reviewed; Nitrate Urine Negative (Negative); Non Pathogenic Casts 0-2; Protein Urine Negative (Negative); Squamous Epithelial Cell Urine Many /hpf (Few)
--- NOTE | 2024-10-06 20:53 | PC.NURSE ---
While this RN was in pt room pt had episode of vomiting. Pt vomited approximately 350cc of dark red blood with clots. Provider made aware.
[2024-10-06 20:56] LABS: BEDSIDEPREGUCG Negative (Negative)
[2024-10-06] MEDS: OCTREOTIDE ACETATE 500 MCG in SODIUM CHLORIDE 0.9% IV 99 ML IV CONT (21:02)
[2024-10-06] MEDS: SODIUM CHLORIDE 0.9% IV 250 ML 30 ML IV CONT (22:52)
[2024-10-06 23:18] LABS: Reflex Lactic Acid Yes or No Add Lactic
[2024-10-07] VITALS (27 sets, daily range): BP systolic 99–131; BP diastolic 56–102; PULSE 98–127; RESP 10–20; TEMP 36.2–37.1; O2SAT 94–100
[2024-10-07 02:30] LABS: Hematocrit 36.9 % (37.0-47.0); Hemoglobin 12.2 g/dL (12.0-15.0)
[2024-10-07 02:42] LABS: Lactic Acid 1.5 mmol/L (0.7-2.0)
[2024-10-07] MEDS: SODIUM CHLORIDE 0.9% IV 1,000 ML 125 ML IV CONT ×2 (03:10→12:13)
[2024-10-07] MEDS: PIPERACILLN/TAZ 3.375GM/NS50ML 3.375 GM/50 ML BAG IVPB ×2 (05:18→12:13)
--- NOTE | 2024-10-07 07:36 | PC.NURSE ---
Phlebotomy called for repeat H&H. lead slot technician & RN tried without success.
[2024-10-07] MEDS: MORPHINE SULFATE (*CRX) 4 MG/ML INJ IV PUSH (07:41)
[2024-10-07] MEDS: ONDANSETRON INJ 4 MG/2 ML VIAL IV PUSH (07:41)
--- NOTE | 2024-10-07 08:46 | PC.NURSE ---
Phlebotomy at bedside
[2024-10-07 08:54] LABS: Hematocrit 37.4 % (37.0-47.0); Hemoglobin 12.8 g/dL (12.0-15.0)
[2024-10-07] MEDS: SODIUM CHLORIDE 0.9% IV 1,000 ML 999 ML IV CONT (08:57)
[2024-10-07] MEDS: PANTOPRAZOLE SODIUM IV 40 MG VIAL IV PUSH (08:57)
--- NOTE | 2024-10-07 09:15 | PC.NURSE ---
called [facility] transfer center at this time. still no bed assignment. Waiting on a general-medical bed at [facility]
--- NOTE | 2024-10-07 14:20 | PC.NURSE ---
[facility] transfer center called with update on bed status. reports pt received bed #732. accepting physician Dr[address] Tapia. Report to be called to [phone].
--- NOTE | 2024-10-07 14:26 | PC.NURSE ---
Report called to [phone]. Report given to SAMI Cortez.
[2024-10-07 14:34] LABS: Hematocrit 35.4 % (37.0-47.0); Hemoglobin 12.2 g/dL (12.0-15.0)
[2024-10-07] MEDS: OCTREOTIDE ACETATE 500 MCG in SODIUM CHLORIDE 0.9% IV 99 ML IV CONT (15:55)
== END 2024-10-07 16:15 | disposition short-term general hospital (02) ==
PROVIDERS: Emergency Provider Physician Assistant
DX: K92.2 Gastrointestinal hemorrhage, unspecified (principal); K75.81 Nonalcoholic steatohepatitis (NASH); K21.9 Gastro-esophageal reflux disease without esophagitis; E11.9 Type 2 diabetes mellitus without complications; Z79.4 Long term (current) use of insulin; I85.00 Esophageal varices without bleeding; I10 Essential (primary) hypertension; F41.9 Anxiety disorder, unspecified; F32.A Depression, unspecified; D64.9 Anemia, unspecified
CPT/HCPCS: 36415; 36430; 71045; 71275; 74177; 80053; 81001; 81025; 83605; 83690; 83735; 84484; 85014; 85018; 85025; 85610; 85730; 86850; 86900; 86901; 86923; 87040; 87086; 93005; 96361; 96365; 96366; 96375; 99285; J0696; J2270; J2354; J2405; J2470; J2543; J7030; J7050; P9016; Q9967

== ENCOUNTER 2024-12-07 01:41 | Day surgery (SDC) | payer OTHER, SELFPAY ==
[2024-11-26 09:22] VITALS: BMI 34.7
--- OUTSIDE RECORDS SUMMARY | 2024-12-07 01:45 | XMS_ITS | Referral Summary ---
Author Organization [facility] Address [address] [facility] [place] [address] Care Team Providers Care Tube Turner Name Role Phone Sadia Morris Primary Care Provider [phone] Sadia Morris Unavailable Source Comments [facility],non-owned Affiliates and Associated Physician Practices is amultiple site organization consisting of ambulatory clinics and hospital sitesin [place], [place], [place] and [place]. This disclosure is being madepursuant to the Care Everywhere program and may not contain all information available regarding this patient. Last updated 18.[facility] Encounters Date Type Department Care Team Description 11/17/2024 Travel 11/17/2024 10:29 AM PLANER STONE Anesthesia Event [facility] ENDOSCOPY [address] [place] [address] Denis Hagan MD Dobbs, Kristin L, NURSING UNIT MANAGER-POWER SUPERINTENDENT 11/17/2024 10:00 AM PLANER STONE - 11/17/2024 10:30 AM PLANER STONE Surgery [facility] ENDOSCOPY [address] [place] [address] Chente Ludwig MD EGD +/- banding 11/17/2024 8:52 AM PLANER STONE - 11/17/2024 11:45 AM PLANER STONE Hospital Encounter [facility] LIBAN OP [address] [place] [address] Chente Ludwig MD Surgery General Discharge Disposition: Home or Self Care 11/12/2024 Patient Outreach [facility] ENDOSCOPY [address] [place] [address] Rosi Jj RN 10/16/2024 Travel 10/11/2024 Orders Only [facility] - GI [address] [place] [address] Espinoza Parra MD Bleeding esophageal varices, unspecified esophageal varices type (HCC) 10/07/2024 4:47 PM PLANER STONE - 10/11/2024 4:17 PM PLANER STONE Hospital Encounter [facility] [address]S ACUTE [address] [place] [phone] Misha Tapia MD Sonoda, Kento, MD Hazam, Randa, MD Gastroenterology Discharge Disposition: Home or Self Care 10/09/2024 2:33 PM PLANER STONE Anesthesia Event [facility] ENDOSCOPY [address] [place] [phone] Andrea De León MD 10/09/2024 2:05 PM PLANER STONE - 10/09/2024 2:35 PM PLANER STONE Surgery [facility] ENDOSCOPY [address] [place] [phone] Dario Nelson MD EGD 10/07/2024 Travel 10/06/2024 Telephone [facility] [address] [place] [phone] Misha Tapia MD General (Outside hospital transfer request/) 09/29/2024 Travel 09/29/2024 11:19 AM PLANER STONE - 09/29/2024 11:59 PM PLANER STONE Hospital Encounter [facility] MRI [address] [place] [address] Salomon Sapp MD Discharge Disposition: Home or Self Care 09/29/2024 1:30 PM PLANER STONE Office Visit [facility] - GI [address] [place] [phone] Salomon Sapp MD 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 Alwaysverify current medications with the patient. Medication Sig Dispensed Refills Start Date End Date Status cyclobenzaprine (FLEXERIL) 10 MG tablet Take 1 (one) tablet by mouth 3 times daily as needed for Muscle Spasms 08/01/2017 Active diphenhydrAMINE (BENADRYL) 25 MG tablet Take 1 (one) tablet by mouth every 6 hours as needed for Itching, Allergies or Insomnia 08/01/2017 Active aspirin-acetamin ophen-caffeine 250-250-65 MG tablet Take 1 (one) tablet by mouth every 6 hours as needed for Headache 08/01/2017 Active cloNIDine (CATAPRES) 0.1 MG tablet Take 0.5 (one-half) tablet by mouth BID 08/01/2017 Active LISINOPRIL PO Take 2.5 mg by mouth once daily Active fluticasone propionate (FLONASE) 50 MCG/ACT nasal spray [place] 2 (two) sprays into each nostril once daily as needed (allergies) Active ondansetron, disintegrating, (ZOFRAN ODT) 4 MG tablet Take 1 tablet by mouth every 6 hours as needed 120 tablet 3 10/22/2019 Active DULoxetine (CYMBALTA) 30 MG capsule Take 1 (one) capsule by mouth 2 times daily 02/08/2020 Active BD VEO INSULIN SYRINGE U/F 31G X 15/64 1 ML syringes USE DIRECTED TWICE DAILY WITH INSULIN 02/09/2020 Active busPIRone (Buspar) 15 MG tablet Take 1 (one) tablet by mouth 2 times daily Active insulin NPH (HumuLIN N; NovoLIN N) vial Inject 70 (seventy) Units subcutaneously 3 times daily Active sucralfate (Carafate) 1 GM tablet Take 1 (one) tablet by mouth 4 times daily - before meals & nightly Active Dexlansoprazole (DEXILANT PO) Take 60 mg by mouth once daily Active hydrOXYzine pamoate (Vistaril) 25 MG capsule Take 1 (one) capsule by mouth 4 times daily as needed Active Glucagon 3 MG/DOSE POWD [place] 3 mg into the nose as needed (hypoglycemia) Active clotrimazole (Lotrimin AF) 1 % cream Apply 1 applicatorful to affected area 2 times daily as needed Active albuterol HFA (Proventil; Ventolin; Proair) 108 (90 Base) MCG/ACT inhaler Inhale 1 (one) puff by mouth every 6 hours as needed for Wheezing or Shortness of Breath 03/08/2021 Active atorvastatin (Lipitor) 80 MG tablet Take 1 (one) tablet by mouth at bedtime 08/15/2022 Active betamethasone valerate (Valisone) 0.1 % cream 01/24/2022 Active topiramate (Topamax) 200 MG tablet Take 1 (one) tablet by mouth once daily 07/29/2022 Active propranolol (Inderal) 10 MG tablet Take 2 (two) tablets by mouth 2 times daily 120 tablet 11 07/08/2024 Active doxepin (SINEquan) 10 MG capsule Take 1 (one) capsule by mouth at bedtime Active tirzepatide (Mounjaro) 10 MG/0.5ML injection Inject 10 (ten) mg subcutaneously every 7 days Active busPIRone (Buspar) 15 MG tablet Take 1 (one) tablet by mouth 2 times daily 60 tablet 10/10/2024 Active hydrOXYzine HCl (Atarax) 50 MG tablet Take 1 (one) tablet by mouth 3 times daily as needed for Itching 30 tablet 10/10/2024 Active ondansetron, disintegrating, (Zofran ODT) 4 MG tablet Take 1 (one) tablet by mouth every 6 hours as needed for Nausea/Vomiting Allow tablet to dissolve on the tongue 30 tablet 10/10/2024 Active atorvastatin (Lipitor) 80 MG tablet Take 1 (one) tablet by mouth at bedtime 30 tablet 10/10/2024 Active prazosin (Minipress) 2 MG capsule Take 1 (one) capsule by mouth at bedtime 30 capsule 10/10/2024 Active carvedilol (Coreg) 3.125 MG tablet Take 1 (one) tablet by mouth 2 times daily with morning and evening meal 30 tablet 10/10/2024 Active bisacodyl (Dulcolax) 10 MG suppository Insert 1 (one) suppository into the rectum once as needed for Constipation (if no BM 24 hours after oral bisacodyl) 30 suppository 10/10/2024 Active bisacodyl EC (Dulcolax) 5 MG tablet Take 1 (one) tablet by mouth once as needed for Constipation (no BM for 72 hours) 30 tablet 10/10/2024 Active polyethylene glycol 3350 (Miralax) 17 g packet Take 17 (seventeen) g by mouth once daily as needed for Constipation 30 packet 10/10/2024 Active pantoprazole EC (Protonix) 40 MG tablet Take 1 (one) tablet by mouth once daily 30 tablet 10/10/2024 Active insulin NPH pen Inject 30 (thirty) Units subcutaneously 2 times daily, before breakfast and supper 3 mL 10/10/2024 Active insulin NPH pen Inject 20 (twenty) Units subcutaneously 2 times daily, before breakfast and supper 3 mL 10/11/2024 Active Ferrous Sulfate (IRON PO) Active Active Problems Problem Noted Date Diagnosed Date Acute gastrointestinal bleeding 10/06/2024 Bipolar disorder 09/12/2024 Iron deficiency anemia due to chronic blood loss 10/09/2023 Secondary esophageal varices without bleeding Gastrointestinal hemorrhage, unspecified gastrointestinal hemorrhage type 03/27/2022 Calculus of kidney 07/17/2021 Liver lesion 06/04/2019 LUQ abdominal pain 12/04/2018 Obesity 11/16/2017 Gastro-esophageal reflux disease without esophag itis 11/16/2017 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 Hyperlipidemia 11/16/2017 Type 2 diabetes mellitus without complications 0 11/16/2017 Resolved Problems Problem Noted Date Diagnosed Date Resolved Date Hepatic cirrhosis, unspecifi ed hepatic cirrhosis type, unspecified whether ascites present 03/27/2022 05/31/2022 Cirrhosis of liver 11/16/2017 Overview (01/13/2018): Liver biopsy performed during cholecystectomy noted evidence of steatohepatitis with bridging fibrosis. Right upper quadrant pain 08/01/2017 Immunizations Name Administration Dates Next Due HEP A/HEP B 06/04/2019,01/01/2019,12/04/2018 INFLUENZA VACCINE, QUADR. (F LUZONE PF QUADRIVALENT; 6-35MO), 0.25 ML (IIV4) 09/17/2019(Deferred: See Comments - vaccine given) INFLUENZA VACCINE, QUADR. (F LUZONE; FLULAVAL; FLUARIX; AFLURIA QUADRIVALENT; 6MO+), 0.5 ML (IIV4) 09/14/2019 Social History Tobacco Use Types Packs/Day Years Used Date Smoking Tobacco: Former Cigarettes Q uit: 2006 Smokeless Tobacco: Never Tobacco Cessation:Counseling Given: Not Answered Alcohol Use Standard Drinks/Week Comments Not Currently 0 (1 standard drink = 0.6 oz pur e alcohol) AUDIT-C Answer Date Recorded Q1: How often do you have a drink containing alcohol? Never 10/07/2024 Q2: How many drinks containi ng alcohol do you have on a typical day when you are drinking? Patient does not drink Frequency of Binge Drinking Not on file 09/14 Overall Financial Resource Strain (CARDIA) Answe r Date Recorded How hard is it for you to pa y for the very basics like food, housing, medical care, and heating? Not hard at all 10/07/2024 [facility] of Occupat ional Health - Occupational Stress Questionnaire Answer Date Recorded Do you feel stress - tense, restless, nervous, or anxious, or unable to sleep at night because your mind is troubled all the time - these days? Not at all 10/07/2024 Hunger Vital Sign Answer Date Recorded Within the past 12 months, y ou worried that your food would run out before you got the money to buy more. Never true 10/07/20 24 Within the past 12 months, t he food you bought just didn't last and you didn't have money to get more. Never true 10/07/2024 PRAPARE - Transportation Answer Date Re corded In the past 12 months, has l ack of transportation kept you from medical appointments or from getting medications? No 09/14 In the past 12 months, has l ack of transportation kept you from meetings, work, or from getting things needed for daily living? No 10/07/2024 Housing Stability Vital Sign Answer Mark e Recorded In the last 12 months, was t here a time when you were not able to pay the mortgage or rent on time? No 10/07/2024 In the past 12 months, how m any times have you moved where you were living? 2 10/07/2024 At any time in the past 12 m [facility], were you homeless or living in a halfway (including now)? No 10/07/2024 Sex and Gender Information Value Date Recorded Sex Assigned at Female 04/21/2024 2:38 PM CDT Gender Identity Female 04/21/2024 2:38 PM CDT Sexual Orientation Straight 04/21/2024 2: 38 PM CDT Last Filed Vital Signs Vital Sign Reading Time Taken Comments Blood Pressure 118/66 11/17/2024 11:30 AM PLANER STONE Pulse 74 11/17/2024 11:30 AM PLANER STONE Temperature 36.5 C (97.7 F) 11/17/2024 10:54 AM PLANER STONE Respiratory Rate 14 11/17/2024 11:30 AM PLANER STONE Oxygen Saturation 98% 11/17/2024 11:30 AM PLANER STONE Inhaled Oxygen Concentration - - Weight 87.8 kg (193 lb 9.6 oz) 11/17/2024 9:37 A M PLANER STONE Height 157.5 cm (5' 2 ) 11/17/2024 9:37 AM PLANER STONE Body Mass Index 35.41 11/17/2024 9:37 AM PLANER STONE Functional Status Functional Status Response Date of Assess ment Is person deaf or have serious hearing difficult y? No 11/17/2024 Is person blind or have serious difficulty seein g? No 11/17/2024 Does person have serious dif ficulty walking/climbing stairs? No 11/17/2024 Does person have difficulty dressing/bathing? No 11/17/2024 Does person have difficulty doing errands alone? No 11/17/2024 Cognitive Status Response Date of Assessm ent Does person have difficulty concentrating/remembering/making decisions? No 11/17/2024 Plan of Treatment Upcoming Encounters Date Type Department Care Team (Late st Contact Info) Description 12/15/2024 9:30 AM PLANER STONE Office Visit [facility] - GI [address] [place] [address], [place] [address] Salomon Sapp MD [address] [place] [address] [place] [address] 03/19/2025 11:30 AM CDT Appointment [address] [phone] Salomon Sapp MD [address] [place] [address] 2L [facility] [place] [address] 09/24/2025 9:30 AM PLANER STONE Appointment [facility] [address] [place] [phone] Salomon Sapp MD [address] [place] [address] 2L [place] [address] 09/24/2025 10:30 AM PLANER STONE Office Visit [facility] - GI [address] [place] [address], [place] [phone] Salomon Sapp MD [address] [place] [address] 2L [facility] [place] [address] Goals Goal Patient Goal Type Associated Problems Recent Progress Patient-Stated? Author Medication Management General On track( 023 12:31 PM PLANER STONE) Mary Kay Andrade, RN Note: Expected end date: ongoing Interventions: Take all medications as prescribed Let your doctor know right away about any changes in your medications Make sure to request a refill of your medication at least one week prior to your last dose Procedures Procedure Name Priority Date/Time Associated Diagnosis Comments EGD Routine 11/17/2024 10:28 AM PLANER STONE GA ED EGD FLEX TRANSORAL DX 11/17/2024 10:24 AM PLANER STONE Esophageal varices without bleeding, unspecified esophageal varices type (HCC) Special Needs Repeat EGD 4 to 6 weeks Received: Today Espinoza Parra MD P [facility] Schedulers - Endoscopy Pool Dear Scheduling Team, Could we please arrange outpatient EGD for Beulah Garcia in 4 to 6 weeks for follow up of Esophageal variceal banding. no, medication changes are needed prior to the procedure. Anticoagulation: None I appreciate your help in arranging the patient's procedure. Sincerely, Espinoza Parra MD GI Fellow, Division of Gastroenterology / Hepatology [facility] Received Date Received Time Oct 11, 2024 9:15 AM GLUCOSE - POINT OF CARE Routine 11/17/2024 9:55 AM PLANER STONE PREPARE RBC LEUKOREDUCED UNIT Routine 10/12/2024 1:17 AM PLANER STONE GLUCOSE - POINT OF CARE Routine 10/11/2024 12:12 PM PLANER STONE HGB HCT PANEL Routine 10/11/2024 11:42 AM PLANER STONE GLUCOSE - POINT OF CARE Routine 10/11/2024 7:30 AM PLANER STONE GLUCOSE - POINT OF CARE Routine 10/11/2024 6:19 AM PLANER STONE PHOSPHORUS BLOOD Routine 10/11/2024 5:57 AM PLANER STONE MAGNESIUM BLOOD Routine 10/11/2024 5:57 AM PLANER STONE CBC W/O DIFFERENTIAL Routine 10/11/2024 5:57 AM PLANER STONE COMPREHENSIVE METABOLIC PANEL Routine 10/11/2024 5:57 AM PLANER STONE GLUCOSE - POINT OF CARE Routine 10/10/2024 4:58 PM PLANER STONE HGB HCT PANEL Routine 10/10/2024 4:13 PM PLANER STONE GLUCOSE - POINT OF CARE Routine 10/10/2024 11:32 AM PLANER STONE GLUCOSE - POINT OF CARE Routine 10/10/2024 8:04 AM PLANER STONE CBC W/O DIFFERENTIAL Routine 10/10/2024 6:30 AM PLANER STONE PHOSPHORUS BLOOD Routine 10/10/2024 5:46 AM PLANER STONE MAGNESIUM BLOOD Routine 10/10/2024 5:46 AM PLANER STONE COMPREHENSIVE METABOLIC PANEL Routine 10/10/2024 5:46 AM PLANER STONE GLUCOSE - POINT OF CARE Routine 10/09/2024 8:26 PM PLANER STONE GLUCOSE - POINT OF CARE Routine 10/09/2024 5:16 PM PLANER STONE HGB HCT PANEL Routine 10/09/2024 4:45 PM PLANER STONE GA ED EGD FLEX TRANSORAL DX 10/09/2024 2:28 PM PLANER STONE Hematemesis, unspecified whether nausea present EGD Routine 10/09/2024 2:22 PM PLANER STONE GLUCOSE - POINT OF CARE Routine 10/09/2024 11:57 AM PLANER STONE TRANSFUSE RED BLOOD CELL LEUKOREDUCED UNIT(S) Routine 10/09/2024 11:[address] ANGIO ABDOMEN PELVIS STAT 10/09/2024 11:08 AM PLANER STONE Acute gastrointestinal bleeding 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) Abdominal pain, right lower quadrant PREPARE RBC LEUKOREDUCED UNIT Routine 10/09/2024 11:06 AM PLANER STONE TYPE + SCREEN PANEL STAT 10/09/2024 9:49 AM PLANER STONE HGB HCT PANEL Routine 10/09/2024 9:49 AM PLANER STONE GLUCOSE - POINT OF CARE Routine 10/09/2024 8:27 AM PLANER STONE PHOSPHORUS BLOOD Routine 10/09/2024 5:30 AM PLANER STONE MAGNESIUM BLOOD Routine 10/09/2024 5:30 AM PLANER STONE CBC W/O DIFFERENTIAL Routine 10/09/2024 5:30 AM PLANER STONE COMPREHENSIVE METABOLIC PANEL Routine 10/09/2024 5:30 AM PLANER STONE GLUCOSE - POINT OF CARE Routine 10/08/2024 9:11 PM PLANER STONE GLUCOSE - POINT OF CARE Routine 10/08/2024 5:38 PM PLANER STONE BLOOD TYPE VERIFICATION Routine 10/08/2024 12:24 PM PLANER STONE BLOOD TYPE ABO+ RH PANEL Routine 10/08/2024 11:11 AM PLANER STONE PT-INR [facility] Routine 10/08/2024 11:11 AM PLANER STONE PHOSPHORUS BLOOD Routine 10/08/2024 11:11 AM PLANER STONE MAGNESIUM BLOOD Routine 10/08/2024 11:11 AM PLANER STONE CBC W/O DIFFERENTIAL Routine 10/08/2024 11:11 AM PLANER STONE COMPREHENSIVE METABOLIC PANEL Routine 10/08/2024 11:11 AM PLANER STONE HEMOGLOBIN A1C Routine 10/08/2024 9:31 AM PLANER STONE GLUCOSE - POINT OF CARE Routine 10/08/2024 8:33 AM PLANER STONE GLUCOSE - POINT OF CARE Routine 10/08/2024 6:53 AM PLANER STONE GLUCOSE - POINT OF CARE Routine 10/07/2024 8:06 PM PLANER STONE GLUCOSE - POINT OF CARE Routine 10/07/2024 5:27 PM PLANER STONE MRI ABDOMEN WWO CONTRAST Routine 09/29/2024 12:28 PM PLANER STONE 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) Secondary esophageal varices without bleeding (HCC) Liver lesion ENDOSCOPY, COLON, DIAGNOSTIC Routine 08/27/2022 12:28 PM PLANER STONE HEPATITIS C ANTIBODY Routine 11/14/2017 10:15 AM PLANER STONE from Last 3 Months or Most Recently Relevant to Health Maintenance Results * EGD (11/17/2024 10:28 AM PLANER STONE) Report Endoscopy POC Endoscopy Department Report _ Patient Name: Beulah Garcia Procedure Date: 11/17/2024 10:28 AM Date of : 1980 Classification: Outpatient Gender: Female Ethnicity: Not or Race: White _ Providers: Chente Ludwig MD Referring MD: Procedure: Upper GI endoscopy Indications: Heartburn, Esophageal varices, Follow-up of esophageal varices, For therapy of esophageal varices Description of Procedure: Pre-Anesthesia Assessment: - ASA Grade Assessment: III - A patient with severe systemic disease. - After reviewing the risks and benefits, the patient was deemed in satisfactory condition to undergo the procedure. After obtaining informed consent, the endoscope was passed under direct vision. Throughout the procedure, the patient's blood pressure, pulse, and oxygen saturations were monitored continuously. The [id number]-[id number] was introduced through the mouth, and advanced to the second part of duodenum. The upper GI endoscopy was accomplished without difficulty. The patient tolerated the procedure well. Findings: The esophagus was normal. The exam of the stomach was otherwise normal. The examined duodenum was normal. Two columns of grade II varices with no stigmata of recent bleeding were found in the lower third of the esophagus. They were 5 mm in largest diameter. No red magda signs were present. Three bands were successfully placed with complete eradication, resulting in deflation of varices. There was no bleeding at the end of the maneuver. Moderate portal hypertensive gastropathy was found in the entire examined stomach. Estimated blood loss: none. Estimated Blood Loss: Estimated blood loss: none. Complications: No immediate complications. Impression: - Normal esophagus. - Normal examined duodenum. - Grade II esophageal varices with no stigmata of recent bleeding. Completely eradicated. Banded. There was no evidence of gastric varices. - Portal hypertensive gastropathy. - No specimens collected. Recommendation: - Advance diet as tolerated. Attending Participation: I personally performed the entire procedure. Procedure Code(s): --- Professional --- 65795, Esophagogastrodu odenoscopy, flexible, transoral; with band ligation of esophageal/gastr ic varices Diagnosis Code(s): --- Professional --- R12, Heartburn K76.6, Portal hypertension I85.00, Esophageal varices without bleeding K31.89, Other diseases of stomach and duodenum CPT copyright 2021 [employer]. All rights reserved. The codes documented in this report are preliminary and upon power plant supervisor review may be revised to meet current compliance requirements. Chente Ludwig MD 11/17/2024 10:51:14 AM Note Initiated On: 11/17/2024 10:28 AM Number of Addenda: [address] [address] [facility] 11/17/2024 10:2 8 AM PLANER STONE Chente Ludwig MD GI PROCEDURE ORDERAB LES [facility] PROVATION * (ABNORMAL) GLUCOSE - POINT OF CARE (11/17/2024 9:55 AM PLANER STONE) Only the most recent of17 resultswithin the time period is included. Glucose WB/POC 113(H) 70 - 99 mg/dL 11/17/2024 10:00 AM PLANER STONE [facility] Specimen Type Venous 11/17/2024 10:00 AM PLANER STONE [facility] Blood BLOOD SPECIMEN / Unknown 11/17/2024 9:55 AM PLANER STONE 11/17/2024 10:00 AM PLANER STONE Chente Ludwig MD LAB - POINT OF CARE ORDERABLES Performing Organization Address City/[facility]/ZIP Co de Phone Number [facility] [address] [place] [phone], [place] [phone] * PREPARE (CROSSMATCH) RBC UNIT(S), 1 Units (10/12/2024 1:17 AM PLANER STONE) Only the most recent of2 resultswithin the time period is included. [facility] Unit Description N/A [facility] BLOOD BANK LAB Blood Bank BLOOD SPECIMEN / Unknown 10/08/2024 11:38 AM PLANER STONE Trudi Sinha MD LAB - BLOOD BANK ORD ERABLES Performing Organization Address [facility] de Phone Number [facility] BLOOD BANK LAB [address] [place] [phone], [facility] [phone] * (ABNORMAL) HGB HCT PANEL (10/11/2024 11:42 AM PLANER STONE) Only the most recent of4 resultswithin the time period is included. [facility] Hemoglobin 8.0(L) 11.9 - 15.8 g/dL 10/11/2024 12:28 PM PLANER STONE [facility] Hematocrit 24.1(L) 34.8 - 46.1 % 10/11/2024 12:28 PM [facility] Blood BLOOD SPECIMEN / Unknown Lab Venipuncture / Unknown 10/11/2024 11:42 AM PLANER STONE 10/11/2024 12:07 PM PLANER STONE Trudi Sinha MD LAB - HEMATOLOGY ORD ERABLES Performing Organization Address City/[facility]/ZIP Co de Phone Number [address] [address], [place] [phone] * (ABNORMAL) CBC W/O DIFFERENTIAL (10/11/2024 5:57 AM PLANER STONE) Only the most recent of4 resultswithin the time period is included. [facility] WBC 1.9(L) 4.0 - 10.7 x10E9/L 10/11/2024 7:07 AM [facility] RBC Count 2.67(L) 3.90 - 5.20 x10E12/L 10/11/2024 7:07 AM [facility] Hemoglobin 8.4(L) 11.9 - 15.8 g/dL 10/11/2024 7:07 AM [facility] Hematocrit 24.2(L) 34.8 - 46.1 % 10/11/2024 7:07 AM [facility] MCV 90.6 80.0 - 98.0 fL 10/11/2024 7:07 AM [facility] MCH 31.5 26.7 - 33.6 pg 10/11/2024 7:07 AM [facility] MCHC 34.7 31.7 - 36.3 g/dL 10/11/2024 7:07 AM [facility] RDW-CV 17.0(H) 11.3 - 14.8 % 10/11/2024 7:07 AM [facility] Platelet Count 41(L) 150 - 420 x10E9/L 10/11/2024 7:07 AM [facility] MPV 11.3 7.8 - 11.4 fL 10/11/2024 7:07 AM [facility] Blood BLOOD SPECIMEN / Unknown Venipuncture / Unknown 10/11/2024 5:57 AM [facility] 10/11/2024 6:25 AM [facility] Ron Dawson MD LAB - HEMATOLOGY ORD ERABLES [facility] [address] [place] [address], [facility] [phone] * (ABNORMAL) COMPREHENSIVE METABOLIC PANEL (10/11/2024 5:57 AM [facility]) Only the most recent of4 resultswithin the time period is included. [facility] BUN 5(L) 7 - 26 mg/dL 10/11/2024 6:56 AM [facility] Creatinine 0.81 0.56 - 0.96 mg/dL 10/11/2024 6:56 AM [facility] Sodium 140 136 - 145 mmol/L 10/11/2024 6:56 AM [facility] Potassium 3.6 3.5 - 4.5 mmol/L 10/11/2024 6:56 AM [facility] Chloride 113(H) 98 - 107 mmol/L 10/11/2024 6:56 AM [facility] CO2 21(L) 22 - 29 mmol/L 10/11/2024 6:56 AM [facility] Glucose 172(H) 70 - 99 mg/dL 10/11/2024 6:56 AM [facility] Calcium 8.4 8.4 - 10.2 mg/dL 10/11/2024 6:56 AM [facility] Protein Total 5.4(L) 6.0 - 8.3 g/dL 10/11/2024 6:56 AM [facility] Albumin 3.6 3.4 - 5.0 g/dL 10/11/2024 6:56 AM [facility] Bilirubin Total 0.9 0.2 - 1.2 mg/dL 10/11/2024 6:56 AM [facility] Alkaline Phosphatase 50 40 - 150 U/L 10/11/2024 6:56 AM [facility] ALT 29 5 - 55 U/L 10/11/2024 6:56 AM [facility] AST 49(H) 5 - 34 U/L 10/11/2024 6:56 AM [facility] Anion Gap 6 6 - 16 10/11/2024 6:56 AM [facility] BUN/Creatinine Ratio 6(L) 7 - 23 10/11/2024 6:56 AM [facility] Osmolality Calculated 291 275 - 295 mOsm/kg 10/11/2024 6:56 AM [facility] Albumin/Globulin Ratio 2.0 1.1 - 2.3 10/11/2024 6:56 AM [facility] eGFR by CKD-EPI >90 >=90 mL/min/1.7 3 m2 10/11/2024 6:56 AM [facility] Blood BLOOD SPECIMEN / Unknown Venipuncture / Unknown 10/11/2024 5:57 AM [facility] 10/11/2024 6:26 AM [facility] Ron Dawson MD LAB - CHEMISTRY SUZY HONG Performing Organization Address City/[facility]/ZIP Co de Phone Number [address] [address], [facility] [phone] * (ABNORMAL) PHOSPHORUS BLOOD (10/11/2024 5:57 AM [facility]) Only the most recent of4 resultswithin the time period is included. Phosphorus 1.7(L) 2.9 - 5.1 mg/dL 10/11/2024 6:56 AM [facility] Blood BLOOD SPECIMEN / Unknown Venipuncture / Unknown 10/11/2024 5:57 AM [facility] 10/11/2024 6:26 AM [facility] Ron Dawson MD LAB - CHEMISTRY SUZY HONG Performing Organization Address [facility] Co de Phone Number [address] [address], [facility] [phone] * MAGNESIUM BLOOD (10/11/2024 5:57 AM [facility]) Only the most recent of4 resultswithin the time period is included. Magnesium 1.8 1.6 - 2.6 mg/dL 10/11/2024 6:56 AM [facility] Blood BLOOD SPECIMEN / Unknown Venipuncture / Unknown 10/11/2024 5:57 AM [facility] 10/11/2024 6:26 AM [facility] Ron Dawson MD LAB - CHEMISTRY SUZY HONG Performing Organization Address City/[facility]/ZIP Co de Phone Number [address] [address], [facility] [phone] * EGD (10/09/2024 2:22 PM [facility]) Report Endoscopy POC Endoscopy Department Report _ Patient Name: Beulah Garcia Procedure Date: 10/09/2024 2:22 PM Date of : 1980 Classification: Inpatient Gender: Female Race: Unknown _ Providers: Bethel Tomlinson (Fellow) Referring MD: Procedure: Upper GI endoscopy Indications: Hematemesis, Hematochezia Medications: See the Anesthesia note for documentation of the administered medications Comorbidities Liver Cirrhosis Patient Profile: 44 year old woman with cirrhosis trasferred from [facility] with hematemesis. Patient scoped after being on octreotide X 28 hours Description of Procedure: After obtaining informed consent, the endoscope was passed under direct vision. Throughout the procedure, the patient's blood pressure, pulse, and oxygen saturations were monitored continuously. The Endoscope was introduced through the mouth, and advanced to the second part of duodenum. The upper GI endoscopy was accomplished without difficulty. The patient tolerated the procedure well. Findings: Three columns of grade III varices with no stigmata of recent bleeding were found in the lower third of the esophagus. No red magda signs were present. Three bands were successfully placed with incomplete eradication of varices. There was no bleeding at the end of the maneuver. Mild portal hypertensive gastropathy was found in the stomach. The examined duodenum was normal. The cardia and gastric fundus were normal on retroflexion. Estimated Blood Loss: Estimated blood loss: none. Complications: No immediate complications. Impression: - Grade III esophageal varices with no stigmata of recent bleeding. Incompletely eradicated. Banded. Suspect this was cause of hematemesis - Portal hypertensive gastropathy. No Signs of Gastric varices - Normal examined duodenum. - No specimens collected. Recommendation: - [facility]. - Full liquid diet today. advance to soft diet for 2 days after that if tolerates liquid diet - Continue present medications. - Check Hemoglboin level this evening -Continue octreotide to complete 72 hours - Repeat upper endoscopy in 4 weeks for endoscopic band ligation. Attending Participation: I was present and participated during the entire procedure, including non-leong portions. Procedure Code(s): --- Professional --- 22444, Esophagogastroduo denoscopy, flexible, transoral; with band ligation of esophageal/gastri c varices Diagnosis Code(s): --- Professional --- I85.00, Esophageal varices without bleeding K76.6, Portal hypertension K31.89, Other diseases of stomach and duodenum K92.0, Hematemesis K92.1, Melena (includes Hematochezia) CPT copyright 2021 [employer]. All rights reserved. The codes documented in this report are preliminary and upon power plant supervisor review may be revised to meet current compliance requirements. Dario Nelson, 10/09/2024 3:10:15 PM Note Initiated On: 10/09/2024 2:22 PM Number of Addenda: [id number] [place] [address] PROVATION 10/09/2024 2:22 PM [facility] Trudi Sinha MD GI PROCEDURE ORDERAB LES Performing Organization Address City/State/[facility] Co de Phone Number [facility] PROVATION * TRANSFUSE RED BLOOD CELL LEUKOREDUCED UNIT(S) (10/09/2024 1:49 PM [facility]) Trudi Sinha MD NURSING - BLOOD PROD TRANSFUSION * CT Angio Abdomen Pelvis (10/09/2024 11:08 AM [facility]) Anatomical Region Laterality Modality Abdomen, Pelvis Computed Tomogra phy 10/09/2024 11:1 6 AM [facility] Impressions 10/09/2024 12:01 PM [facility] Impression: 1.No active bleeding identified in the stomach or bowel loops on this exam. 2.No evidence of acute appendicitis. 3.Rectum, sigmoid colon and descending colon are filled with fluid attenuating higher than simple fluid. This could be stool content mixed with fluid. However, with history of GI bleed, correlate with clinical examination to rule out hemorrhagic fluid. 4.Cirrhosis with sequela of portal hypertension including splenomegaly. No significant varices found. Mild edema of gastric wall is noted, likely secondary to portal hypertension. There is a benign-appearing cyst in hepatic segment 4B measuring 0.9 cm, otherwise no significant focal lesion. 5.Small nonobstructing stones noted in both kidneys. Simple cyst in lower pole of the left kidney measuring 3.1 cm. > Dictated by Celestine Arciniega MD, MD (residential program manager). I, Arsh Iqbal MD have personally reviewed and interpreted this examination/study. 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 patient came with abdominal pain and hematemesis Technologist Note: Additional: History of cirrhosis complicated by esophageal varices. COMPARISON: CTA chest abdomen pelvis from 10/06/2024. TECHNIQUE: CT of the abdomen and pelvis was performed prior to and following the uneventful administration of 100 mL of Isovue 370 intravenous contrast according to an angiographic protocol. Three dimensional postprocessing was performed by the technologist and sent to the workstation for review. Findings: Abdominal aorta: There is no aortic dissection, intramural hematoma, penetrating atherosclerotic ulcer, or aneurysm. The aorta is normal in course and caliber. Abdominal aortic branches: Celiac axis: Patent without significant focal stenosis. Superior mesenteric artery: Patent without significant focal stenosis. Inferior mesenteric artery: Patent without significant focal stenosis. Right renal artery: Patent without significant focal stenosis. Left renal artery: Patent without significant focal stenosis. Right common iliac artery: Patent without significant focal stenosis. Right external iliac artery: Patent without significant focal stenosis. Right internal iliac artery: Patent without significant focal stenosis. Left common iliac artery: Patent without significant focal stenosis. Left external iliac artery: Patent without significant focal stenosis. Left internal iliac artery: Patent without significant focal stenosis. Lower Chest: Normal. Liver: There is a 0.9 cm hypodense lesion in hepatic segment 4B, likely benign cyst. Liver surface is nodular consistent with cirrhosis. No evidence of varices. Gallbladder and Bile Ducts: Gallbladder surgically absent. Focal dilation of common bile duct measuring up to 2.1 cm without adjacent fat stranding. Spleen: Spleen is enlarged measuring 18 cm in the craniocaudal axis. Pancreas: Normal. Adrenals: Normal. Kidneys: Stone in upper pole of right kidney measuring up to 0.7 cm. Tiny stone in mid kidney. No evidence of hydronephrosis or hydroureter. Endophytic cyst in the lower pole of left kidney measuring 3.1 cm and attenuating as simple fluid, likely simple cyst. Gastrointestinal: Rectum, sigmoid colon and ascending colon are filled with fluid attenuating higher than simple fluid. Appendix is normal. Mild edema of gastric wall may be due to erosions/ulcerations. Small bowel is unremarkable. Mesentery/Peritoneum/Retroperitoneum: Moderate volume ascites most prominent in the perihepatic region and pelvis. No free intraperitoneal air. Bladder: Normal. Reproductive Organs: Uterus absent. Bones: Bone windows demonstrate no suspicious lytic or blastic lesions. The visible osseous structures are intact. Mild multilevel degenerative changes of spine. Soft tissues: Normal. 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 patient came with abdominal pain and hematemesis Technologist Note: Additional: History of cirrhosis complicated by esophageal varices. COMPARISON: CTA chest abdomen pelvis from 10/06/2024. TECHNIQUE: CT of the abdomen and pelvis was performed prior to and following the uneventful administration of 100 mL of Isovue 370intravenous contrast according to an angiographic protocol. Three dimensional postprocessing was performed by the technologist and sent to the workstation for review. Findings: Abdominal aorta: There is no aortic dissection, intramural hematoma, penetrating atherosclerotic ulcer, or aneurysm. The aorta is normal in course and caliber. Abdominal aortic branches: Celiac axis: Patent without significant focal stenosis. Superior mesenteric artery: Patent without significant focal stenosis. Inferior mesenteric artery: Patent without significant focal stenosis. Right renal artery: Patent without significant focal stenosis. Left renal artery: Patent without significant focal stenosis. Right common iliac artery: Patent without significant focal stenosis. Right external iliac artery: Patent without significant focal stenosis. Right internal iliac artery: Patent without significant focal stenosis. Left common iliac artery: Patent without significant focal stenosis. Left external iliac artery: Patent without significant focal stenosis. Left internal iliac artery: Patent without significant focal stenosis. Lower Chest: Normal. Liver: There is a 0.9 cm hypodense lesion in hepatic segment 4B, likely benign cyst. Liver surface is nodular consistent with cirrhosis. No evidence ofvarices. Gallbladder and Bile Ducts: Gallbladder surgically absent. Focal dilation of common bile ductmeasuring up to 2.1 cm without adjacent fat stranding. Spleen: Spleen is enlarged measuring 18 cm in the craniocaudal axis. Pancreas: Normal. Adrenals: Normal. Kidneys: Stone in upper pole of right kidney measuring up to 0.7 cm. Tiny stonein mid kidney. No evidence of hydronephrosis or hydroureter. Endophytic cyst in the lower pole of left kidney measuring 3.1 cm and attenuating as simple fluid, likely simple cyst. Gastrointestinal: Rectum, sigmoid colon and ascending colon are filled with fluidattenuating higher than simple fluid. Appendix is normal. Mild edema of gastric wall may be due to erosions/ulcerations. Smallbowel is unremarkable. Mesentery/Peritoneum/Retroperitoneum: Moderate volume ascites most prominent in the perihepatic region and pelvis. No free intraperitoneal air. Bladder: Normal. Reproductive Organs: Uterus absent. Bones: Bone windows demonstrate no suspicious lytic or blastic lesions. The visible osseous structures are intact. Mild multilevel degenerativechanges of spine. Soft tissues: Normal. Impression: 1.No active bleeding identified in the stomach or bowel loops on thisexam. 2.No evidence of acute appendicitis. 3.Rectum, sigmoid colon and descending colon are filled with fluid attenuating higher than simple fluid. This could be stool content mixed with fluid. However, with history of GI bleed, correlate with clinical examination to rule out hemorrhagic fluid. 4.Cirrhosis with sequela of portal hypertension including splenomegaly.No significant varices found. Mild edema of gastric wall is noted, likely secondary to portal hypertension. There is a benign-appearing cyst in hepatic segment 4B measuring 0.9 cm, otherwise no significant focallesion. 5.Small nonobstructing stones noted in both kidneys. Simple cyst inlower pole of the left kidney measuring 3.1 cm. > Dictated by Celestine Arciniega MD, MD (residential program manager). I, Arsh Iqbal MD have personally reviewed and interpreted this examination/study. > Interpreting Provider: Arsh Iqbal MD on 2:[address] MD [address] ORDERABLES * TYPE + SCREEN PANEL (10/09/2024 9:49 AM [facility]) Antibody Screen NEG 10:49 AM [facility] BLOOD BANK LAB ABO Rh O POS 10/09/2024 10:49 AM [facility] BLOOD BANK LAB Blood Bank BLOOD SPECIMEN / Unknown Lab Venipuncture / Unknown 10/09/2024 9:49 AM [facility] 10/09/2024 10:05 AM [facility] Trudi Sinha MD LAB - BLOOD BANK ORD ERABLES [facility] BLOOD B[facility] LAB [address] [place] [address], [facility] [phone] * BLOOD TYPE VERIFICATION (10/08/2024 12:24 PM [facility]) ABO Rh O POS 10/08/2024 1:1 0 PM [facility] BLOOD BANK LAB Blood Bank BLOOD SPECIMEN / Unknown Venipuncture / Unknown 10/08/2024 12:24 PM [facility] 10/08/2024 12:32 PM [facility] Ron Dawson MD LAB - BLOOD BANK ORD ERABLES [facility] BLOOD BANK LAB [address] [place] [address], [facility] [phone] * (ABNORMAL) PT-INR [facility] (10/08/2024 11:11 AM [facility]) Pathologist [facility] PT 16.5(H) 12.1 - 14.8 Seconds 10/08/2024 11:51 AM [facility] INR 1.4 See Comment 10/08/2024 11:51 AM [facility] Comment:The suggested therap eutic range for standard coumadin (warfarin) therapy is an INR of 2.0-3.0. For high-risk patients (Mechanical Mitral Valve Prosthesis, etc.), the suggested prophylactic therapeutic range is an INR of 2.5-3.5. Blood BLOOD SPECIMEN / Unknown Venipuncture / Unknown 10/08/2024 11:11 AM [facility] 10/08/2024 11:24 AM [facility] Ron Dawson MD LAB - COAGULATION OR DERABLES Performing Organization Address City/[facility]/ZIP Co de Phone Number [facility] [address] [place] [address], [facility] [phone] * BLOOD TYPE ABO+ RH PANEL (10/08/2024 11:11 AM [facility]) [facility] ABO Rh O POS 10/08/2024 12:13 PM [facility] BLOOD [facility] LAB Blood BLOOD SPECIMEN / Unknown Venipuncture / Unknown 10/08/2024 11:11 AM [facility] 10/08/2024 11:38 AM [facility] Ron Dawson MD LAB - BLOOD BANK ORD ERABLES [facility] BLOOD BANK LAB [address] [place] [address], [facility] [phone] * HEMOGLOBIN A1C (10/08/2024 9:31 AM [facility]) Pathologist [facility] Hemoglobin A1c 5.3 <=5.6 % 10/08/2024 1:40 PM [facility] Estimated Average Glucose 105 mg/dL 10/08/2024 1:40 PM [facility] Comment: HbA1c Interpretation: Normal : < 5.7% Pre-diabetes: 5.7-6.4% Diabetes: Equal to or greater than 6.5% Test results diagnostic of diabetes should be repeated for confirmation. Treatment target values recommended by ADA and other clinical organizations should be used to evaluate metabolic control in patients. Reference: [place] [employer], Standards of Care in Diabetes -2020 In patients 70 years and older consider HbA1c target range of 7.0-7.5% (Reference: Garcia Contreras et al. JAMDA. 2012) The Sebia assay for the measurement of HbA1c is a National Glycohemoglobin Standardization Program (NGSP) certified method. Blood BLOOD SPECIMEN / Unknown Lab Venipuncture / Unknown 10/08/2024 9:31 AM [facility] 10/08/2024 9:59 AM [facility] Ron Dawson MD LAB - CHEMISTRY SUZY HONG [facility] Organization Address City/State/ZIP Co de Phone Number [facility] [address] [place] [address], [facility] [phone] * MRI ABDOMEN WWO CONTRAST (09/29/2024 12:28 PM [facility]) Anatomical Region Laterality Modality Abdomen Magnetic Resonan ce 09/29/2024 1:10 PM [facility] Impressions 09/29/2024 5:24 PM [facility] Impression: 1.Multiple sub-5 mm arterial enhancing LR 3 observations within the right hemiliver without washout- LR-3. 2.Hepatic cirrhosis with sequelae of portal hypertension including splenomegaly and trace ascites. Report dictated by Treasure Durbin MD, > Dictated by Treasure Durbin MD ([employer]) 09/29/2024 1:10 PM IMaribel MD have personally reviewed and interpreted this examination/study. 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 Findings: Lower Chest: Normal. Hepatobiliary system Liver morphology: Surface nodularity of the liver is consistent with hepatic cirrhosis. Steatosis: None. Varices: None. Spleen: Enlarged, measuring 18 cm Ascites: Trace volume. Focal liver observations Previously described arterially enhancing observations in segments 4 and 8 are not appreciated on this exam. Multiple sub-5 mm arterial enhancing LR 3 observations within the right hemiliver without washout are seen. For reference, there is an observation in segment 6 (series 10 image 51). Scattered subcentimeter hepatic cysts. Hepatic vasculature Portal and hepatic veins: Patent. Arterial anatomy: Conventional. Gallbladder and bile ducts Gallbladder: Absent. Dilated cystic duct stump. Bile ducts: Nondilated. Retroperitoneum Pancreas: Normal. Adrenals: Normal. Kidneys: Scattered bilateral renal cysts with the largest one located in the left inferior pole and measuring up to 3 cm. Lymph nodes: Prominent subcentimeter periportal and portacaval lymph nodes. Gastrointestinal: Imaged bowel and mesentery are normal. Other findings: Levocurvature of the thoracic spine. 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 Findings: Lower Chest: Normal. Hepatobiliary system Liver morphology: Surface nodularity of the liver is consistent with hepatic cirrhosis. Steatosis: None. Varices: None. Spleen: Enlarged, measuring 18 cm Ascites: Trace volume. Focal liver observations Previously described arterially enhancing observations in segments 4 and8 are not appreciated on this exam. Multiple sub-5 mm arterial enhancing LR3 observations within the right hemiliver without washout are seen. For reference, there is an observation in segment 6 (series 10 image 51). Scattered subcentimeter hepatic cysts. Hepatic vasculature Portal and hepatic veins: Patent. Arterial anatomy: Conventional. Gallbladder and bile ducts Gallbladder: Absent. Dilated cystic duct stump. Bile ducts: Nondilated. Retroperitoneum Pancreas: Normal. Adrenals: Normal. Kidneys: Scattered bilateral renal cysts with the largest one located in the left inferior pole and measuring up to 3 cm. Lymph nodes: Prominent subcentimeter periportal and portacaval lymphnodes. Gastrointestinal: Imaged bowel and mesentery are normal. Other findings: Levocurvature of the thoracic spine. Impression: 1.Multiple sub-5 mm arterial enhancing LR 3 observations within theright hemiliver without washout- LR-3. 2.Hepatic cirrhosis with sequelae of portal hypertension including splenomegaly and trace ascites. Report dictated by Treasure Durbin MD, > Dictated by Treasure Durbin MD ([employer]) 09/29/2024 1:10 PM IMaribel MD have personally reviewed and interpreted this examination/study. > Interpreting Provider: Maribel Connors MD on 09/29/2024 5:24 PM Salomon Sapp MD MR ORDERABLES * ENDOSCOPY, COLON, DIAGNOSTIC (08/27/2022 12:28 PM PLANER STONE) Report Endoscopy POC Endoscopy Department Report _ Patient Name: Beulah Fung Procedure Date: 08/27/2022 12:28 PM Date of : 1980 Classification: Outpatient Gender: Female Ethnicity: Not or Race: White _ Providers: Salomon Sapp MD Referring MD: Procedure: Colonoscopy Indications: Generalized abdominal pain, Hematochezia Medications: Monitored Anesthesia Care Description of Procedure: Pre-Anesthesia Assessment: - Prior to the procedure, a History and Physical was performed, and patient medications and allergies were reviewed. The patient's tolerance of previous anesthesia was also reviewed. The risks and benefits of the procedure and the sedation options and risks were discussed with the patient. All questions were answered, and informed consent was obtained. Prior Anticoagulants: The patient has taken no previous anticoagulant or antiplatelet agents. ASA Grade Assessment: II - A patient with mild systemic disease. After reviewing the risks and benefits, the patient was deemed in satisfactory condition to undergo the procedure. After I obtained informed consent, the scope was passed under direct vision. Throughout the procedure, the patient's blood pressure, pulse, and oxygen saturations were monitored continuously. The Colonoscope was introduced through the anus and advanced to the cecum, identified by appendiceal orifice and ileocecal valve. The colonoscopy was performed without difficulty. The patient tolerated the procedure well. The quality of the bowel preparation was adequate. The ileocecal valve, appendiceal orifice, and rectum were photographed. Findings: The perianal and digital rectal examinations were normal. Two sessile polyps were found in the transverse colon. The polyps were 2 to 3 mm in size. These polyps were removed with a cold snare. Resection and retrieval were complete. Verification of patient identification for the specimen was done by the nurse using the patient's name and date. Estimated blood loss was minimal. Non-bleeding external hemorrhoids were found during retroflexion. The hemorrhoids were medium-sized. The exam was otherwise without abnormality on direct and retroflexion views. Estimated Blood Loss: Estimated blood loss was minimal. Complications: No immediate complications. Impression: - Two 2 to 3 mm polyps in the transverse colon, removed with a cold snare. Resected and retrieved. - Non-bleeding external hemorrhoids. - The examination was otherwise normal on direct and retroflexion views. Recommendation: - Patient has a contact number available for emergencies. The signs and symptoms of potential delayed complications were discussed with the patient. Return to normal activities tomorrow. Written discharge instructions were provided to the patient. - Resume previous diet. - Continue present medications. - Await pathology results. - Repeat colonoscopy in 5 years for surveillance based on pathology results. - Return to my office as previously scheduled. Attending Participation: I personally performed the entire procedure. Procedure Code(s): --- Professional --- 94968, Colonoscopy, flexible; with removal of tumor(s), polyp(s), or other lesion(s) by snare technique Diagnosis Code(s): --- Professional --- K63.5, Polyp of colon K64.4, Residual hemorrhoidal skin tags R10.84, Generalized abdominal pain K92.1, Melena (includes Hematochezia) CPT copyright 2019 [employer]. All rights reserved. The codes documented in this report are preliminary and upon power plant supervisor review may be revised to meet current compliance requirements. Salomon Sapp MD 08/27/2022 1:27:31 PM This report has been signed electronically. Note Initiated On: 08/27/2022 12:28 PM Number of Addenda: [id number] [place] [address] PROVATION 08/27/2022 12:2 8 PM PLAN[facility] STONE Salomon Sapp MD GI PROCEDURE ORDERAB LES [facility] PROVATION * HEPATITIS C ANTIBODY (11/14/2017 10:15 AM PLANER STONE) Hepatitis C Antibody Non-react vishal Non-reac tive [facility] Comment: Hepatitis C Antibody screen indicates no serologic evidence of past or current infection with Hepatitis C Virus. Patients with unexplained liver disease who are immunocompromised or suspected of having acute Hepatitis C infection may benefit from Nucleic Acid Test (USMAN) for Hepatitis C Viral RNA to confirm Hepatitis C status. Blood specimen (specimen) BLOOD SPECIMEN / Unknown 11/14/2017 10:15 AM PLANER STONE 11/14/2017 11:03 AM PLANER STONE Verito Mcclendon MD LAB - CHEMISTRY OR DERABLES [facility] [address] [place] [address], [facility] [phone] from Last 3 Months or Most Recently Relevant to Health Maintenance Advance Directives * Full Code (Latest Code Status on File) Date Activated Date Inactivated Comments 10/07/2024 6:10 PM 10/11/2024 5:22 PM Care Teams Tube Turner Relationship Specialty Start Date End Date Sadia Morris [address] [place] [address] [address] [place] [address] PCP - General 09/13/24 Sadia Morris [address] [place] [address] [address] [place] [address] 09/13/24
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
--- OUTSIDE RECORDS SUMMARY | 2024-12-07 01:45 | XMS_ITS | Encounter Summary ---
Author Organization [facility] Address [address] [place] [address] Care Team Providers Care Environmental Health And Safety Intern Name Role Phone Sadia Morris Primary Care Provider [phone] Sadia Morris Primary Care Provider [phone] Sadia Morris Unavailable Reason for Visit * Reason Onset Date Comments MEDICATION REFILL 01/21/2024 Encounter Details Date Type Department Care Team (Late st Contact Info) Description 01/21/2024 Refill [facility] [address] [place] [address], [facility] [place] [id number] Salomon Sapp MD [address] [place] [id number] [place] [address] MEDICATION REFILL Social History Tobacco Use Types Packs/Day Years Used Date Smoking Tobacco: Former Cigarettes 1 13 0 10/14/1993 - 10/14/2006 Smokeless Tobacco: Never Alcohol Use Standard Drinks/Week Comments Not Currently 0 (1 standard drink = 0.6 oz pur e alcohol) AUDIT-C Answer Date Recorded Q1: How often do you have a drink containing alcohol? Never 08/27/2022 Q2: How many drinks containi ng alcohol do you have on a typical day when you are drinking? Patient does not drink Q3: How often do you have si x or more drinks on one occasion? Never 08/27/2022 Sex and Gender Information Value Date Recorded Sex Assigned at Female 04/21/2024 2:38 PM CDT Gender Identity Female 04/21/2024 2:38 PM CDT Sexual Orientation Straight 04/21/2024 2: 38 PM CDT documented as of this encounter Functional Status Functional Status Response Date of Assess ment Is person deaf or have serious hearing difficult y? No 08/27/2022 Is person blind or have serious difficulty seein g? No 08/27/2022 Does person have serious dif ficulty walking/climbing stairs? No 08/27/2022 Does person have difficulty dressing/bathing? No 08/27/2022 Does person have difficulty doing errands alone? No 08/27/2022 Cognitive Status Response Date of Assessm ent Does person have difficulty concentrating/remembering/making decisions? No 08/27/2022 documented as of this encounter Plan of Treatment Upcoming Encounters Date Type Department Care Team (Late st Contact Info) Description 12/15/2024 9:30 AM PRINCIPAL PROCESS ENGINEER Office Visit [facility] - [place] [address] [place] [phone] Salomon Sapp MD [address] [place] [address] [address] [place] [address] 03/19/2025 11:30 AM CDT Appointment [facility] [id number] [place] [address] Salomon Sapp MD [address] [place] [address] [address] [place] [address] 09/24/2025 9:30 AM PRINCIPAL PROCESS ENGINEER Appointment [facility] [address] [place] [address] Salomon Sapp MD [address] [place] [address] [address] [place] [address] 09/24/2025 10:30 AM PRINCIPAL PROCESS ENGINEER Office Visit [facility] - [place] [address] [place] [phone] Salomon Sapp MD [address] [place] [address] [address] [place] [address] documented as of this encounter Goals Goal Patient Goal Type Associated Problems Recent Progress Patient-Stated? Author Medication Management General On track( 023 12:31 PM PRINCIPAL PROCESS ENGINEER) Mary Kay Andrade, RN Note: Expected end date: ongoing Interventions: Take all medications as prescribed Let your doctor know right away about any changes in your medications Make sure to request a refill of your medication at least one week prior to your last dose documented as of this encounter Visit Diagnoses Not on filedocumented in this encounter Care Teams Environmental Health And Safety Intern Relationship Specialty Start Date End Date Sadia Morris [address] [place] [address] [address] [place] [address] PCP - General 09/24/23 09/12/24 Sadia Morris [address] [place] [address] [address] [place] [address] PCP - General 09/13/24 Sadia Morris [address] [place] [address] [address] [place] [address] 09/13/24 documented as of this encounter
--- OUTSIDE RECORDS SUMMARY | 2024-12-07 01:45 | XMS_ITS | Clinical Summary ---
Author Organization [facility] Address [address] [place] [address] Care Team Providers Care Bus And Trolley Inspecting Dispatcher Name Role Phone Sadia Morris NP Primary Care Provider + Allergies Active Allergy Reactions Criticality Noted Date Comments Sumatriptan Muscle pain,Other (See comments) Medium Stanley Oil Hives Medium 02/13/2022 Medications cyclobenzaprine (FLEXERIL) 10 mg tablet Take 1 tablet (10 mg total) by mouth 2 (two) times a day as needed for muscle spasms for up to 5 days 10 tablet 2 Active dicyclomine (BENTYL) 20 mg tablet Take 1 tablet (20 mg total) by mouth 4 (four) times a day as needed (abdominal pain) Use only as needed for abdominal pain 30 tablet 2 Active ondansetron ODT (ZOFRAN-ODT) 4 mg disintegrating tablet Take 1 tablet (4 mg total) by mouth every 8 (eight) hours as needed for nausea or vomiting 20 tablet 2 Active traMADoL (ULTRAM) 50 mg tablet Take 1 tablet (50 mg total) by mouth every 6 (six) hours 12 tablet 3 Active naproxen (NAPROSYN) 500 mg tablet Take 1 tablet (500 mg total) by mouth 2 (two) times a day with meals 30 tablet 4 Active methocarbamoL (ROBAXIN) 500 mg tablet Take 1 tablet (500 mg total) by mouth 2 (two) times a day 20 tablet 4 Active doxepin (SINEquan) 10 mg capsule Take 1 capsule (10 mg total) by mouth nightly 4 Active dexlansoprazole (DEXILANT) 60 mg capsule Take 1 capsule (60 mg total) by mouth daily Active diphenhydrAMINE 25 mg capsule Take 1 tablet/capsul e (25 mg total) by mouth every 6 (six) hours as needed Active Mounjaro 10 mg/0.5 mL pen injector Inject 10 mg under the skin once a week 4 Active propranoloL (INDERAL) 10 mg tablet Take 2 tablets (20 mg total) by mouth 2 (two) times a day Active busPIRone (BUSPAR) 15 mg tablet Take 1 tablet (15 mg total) by mouth 3 (three) times a day Active folic acid (FOLVITE) 1 mg tablet Take 1 tablet (1 mg total) by mouth daily [address] (CYMBALTA) 30 mg capsule Take 1 capsule (30 mg total) by mouth 2 (two) times a day 0 Active hydrOXYzine (ATARAX) 25 mg tablet Take 1 tablet (25 mg total) by mouth 3 (three) times a day as needed Active Jardiance 25 mg tablet Take 1 tablet (25 mg total) by mouth daily 4 Active prazosin (MINIPRESS) 2 mg capsule Take 1 capsule (2 mg total) by mouth nightly as needed Active rizatriptan (MAXALT) 5 mg tablet Take 1 tablet (5 mg total) by mouth as needed for migraine Active topiramate (TOPAMAX) 200 mg tablet Take 1 tablet (200 mg total) by mouth daily 6 Active atorvastatin (LIPITOR) 80 mg tablet Take 1 tablet (80 mg total) by mouth nightly at bedtime. 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) 08/16 GERD (gastroesophageal reflux disease) Hyperlipidemia associated with type 2 diabetes m ellitus 09/12/2024 Hypoglycemia associated with type 2 diabetes mellitus (CMS/HCC) 09/12/2024 Orthostatic hypotension 09/12/2024 Thrombocytopenia 09/12/2024 Hx of esophageal varices 09/12/2024 Encounters Date Type Department Care Team Description 09/30/2024 12:05 PM IT SECURITY SPECIALIST - 09/30/2024 11:59 PM IT SECURITY SPECIALIST Hospital Encounter [facility] Cardiology [address] [place] [id number] Syncope and collapse; Orthostatic hypotension Discharge Disposition: Discharge to home or self care 09/11/2024 10:24 PM IT SECURITY SPECIALIST - 09/13/2024 5:49 PM IT SECURITY SPECIALIST Hospital Encounter [facility] Medical Care [address] [place] [id number] Valdez Lee MD Huynh, Kiet T., MD Richards, Bee Pollack Jr., MD Syncope and collapse (Primary Dx); Orthostatic hypotension; Anxiety [F41.9]; Gastroesophageal reflux disease without esophagitis [K21.9]; Hyperlipidemia associated with type 2 diabetes mellitus (HCC) [E11.69, E78.5]; Hypoglycemia associated with type 2 diabetes mellitus (CMS/HCC) (HCC) [E11.649]; 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) (HCC) [K75.81, K74.60]; Hx of esophageal varices [Z87.19] Discharge Disposition: Discharge to home or self care from Last 3 Months Surgical History Surgery Date Site/Laterality Comments KNEE SURGERY CHOLECYSTECTOMY HYSTERECTOMY DILATION AND CURETTAGE OF UTERUS OVARIAN CYST REMOVAL ANKLE SURGERY LITHOTRIPSY CARPAL TUNNEL RELEASE ELBOW SURGERY Medical History Medical History Date Comments GERD (gastroesophageal reflux disease) Liver cirrhosis (HCC) Hypertension Diabetes mellitus (HCC) Migraines Hypercholesteremia Bipolar 2 disorder (CMS/HCC) (HCC) Depression Anxiety Bilateral ovarian cysts Social History Tobacco Use Types Packs/Day Years Used Date Smoking Tobacco: Former Smokeless Tobacco: Never Alcohol Use Standard Drinks/Week Comments Not Currently 0 (1 standard drink = 0.6 oz pur e alcohol) Personal Safety Answer Date Recorded Have you ever been in or are you currently in a harmful physical or emotional relationship or is someone making you feel afraid or unsafe? Denies 09/11/2024 Comments No Sex and Gender Information Value Date Recorded Sex Assigned at Not on file Legal Sex Female 11:18 PM IT SECURITY SPECIALIST Gender Identity Not on file Sexual Orientation Not on file Obstetrics History Last Filed Vital Signs Vital Sign Reading Time Taken Comments Blood Pressure 122/71 09/13/2024 3:03 PM IT SECURITY SPECIALIST Pulse 64 09/13/2024 3:03 PM IT SECURITY SPECIALIST Temperature 36.2 C (97.2 F) 09/13/2024 3:03 PM IT SECURITY SPECIALIST Respiratory Rate 16 09/13/2024 3:03 PM IT SECURITY SPECIALIST Oxygen Saturation 97% 09/13/2024 3:03 PM IT SECURITY SPECIALIST Inhaled Oxygen Concentration - - Weight 90.3 kg (199 lb) 09/12/2024 2:18 AM IT SECURITY SPECIALIST Height 157.5 cm (5' 2 ) 09/12/2024 2:18 AM IT SECURITY SPECIALIST Body Mass Index 36.4 09/12/2024 2:18 AM IT SECURITY SPECIALIST Plan of Treatment Health Maintenance Due Date Last Done Comments Albumin Creatinine Ratio, Urine 1980 Breast Cancer Screening-Mammogram 1980 Colon Cancer Screening-Colonoscopy 1980 Depression Screening 1980 Hepatitis C Screening 1980 Dilated Eye Exam 1978 Foot Exam 1978 DTaP/Tdap/Td Vaccine (1 - Tdap) 1989 Regular Well Visit/Exam 18-64 1996 Pneumococcal vaccine <65 (1 of 2 - PCV) 1997 Lipid Panel 07/15/2021 07/15/2020 Influenza Vaccine (#1) 2024 , 09/14/2019, 11/16/2015, Additional history exists Hemoglobin A1C 03/12/2025 09/12/2024 eGFR 09/11/2025 09/11/2024, 08/0 10/2023, 08/09/2023, Additional history exists HPV Vaccines Aged Out No longer eligi ble based on patient's age to complete this topic Procedures Procedure Name Priority Date/Time Associated Diagnosis Comments MCT - MOBILE CARDIAC TELEMETRY EVENT MONITOR Routine 09/30/2024 12:05 PM IT SECURITY SPECIALIST Syncope and collapse Orthostatic hypotension POCT GLUCOSE DEVICE Routine 09/13/2024 4 :43 PM IT SECURITY SPECIALIST POCT GLUCOSE DEVICE Routine 09/13/2024 1 1:53 AM IT SECURITY SPECIALIST POCT GLUCOSE DEVICE Routine 09/13/2024 7 :46 AM IT SECURITY SPECIALIST POCT GLUCOSE DEVICE Routine 09/13/2024 2 :24 AM IT SECURITY SPECIALIST POCT GLUCOSE DEVICE Routine 09/12/2024 9 :03 PM IT SECURITY SPECIALIST ECG 12-LEAD Routine 09/12/2024 7:03 PM IT SECURITY SPECIALIST POCT GLUCOSE DEVICE Routine 09/12/2024 4 :44 PM IT SECURITY SPECIALIST POCT GLUCOSE DEVICE Routine 09/12/2024 1 :47 PM IT SECURITY SPECIALIST POCT GLUCOSE DEVICE Routine 09/12/2024 1 1:32 AM IT SECURITY SPECIALIST TRANSTHORACIC ECHO (TTE) COMPLETE W DOPPLER/CF WO CONTRAST Routine 09/12/2024 11:07 AM IT SECURITY SPECIALIST POCT GLUCOSE DEVICE Routine 09/12/2024 8 :30 AM IT SECURITY SPECIALIST POCT GLUCOSE DEVICE Routine 09/12/2024 5 :28 AM IT SECURITY SPECIALIST HEMOGLOBIN A1C Routine 09/12/2024 4:58 AM IT SECURITY SPECIALIST TROPONIN T HIGH-SENSITIVITY 6-HOUR Timed 09/12/2024 4:58 AM IT SECURITY SPECIALIST POCT GLUCOSE DEVICE Routine 09/12/2024 4 :40 AM IT SECURITY SPECIALIST TROPONIN T HIGH-SENSITIVITY 4-HR Timed 09/12/2024 4:12 AM IT SECURITY SPECIALIST POCT GLUCOSE DEVICE Routine 09/12/2024 4 :11 AM IT SECURITY SPECIALIST POCT GLUCOSE DEVICE Routine 09/12/2024 3 :49 AM IT SECURITY SPECIALIST DRUGS OF ABUSE SCREEN, URINE WITH REFLEX CONFIRMATION Routine 09/12/2024 3:42 AM IT SECURITY SPECIALIST INFLUENZA A/B, RSV, AND COVID-19 PCR Routine 09/12/2024 3:42 AM IT SECURITY SPECIALIST URINALYSIS AND REFLEX TO MICROSCOPIC AND CULTURE STAT 09/12/2024 3:42 AM IT SECURITY SPECIALIST POCT GLUCOSE DEVICE Routine 09/12/2024 3 :29 AM IT SECURITY SPECIALIST POCT GLUCOSE DEVICE Routine 09/12/2024 3 :05 AM IT SECURITY SPECIALIST POCT GLUCOSE DEVICE Routine 09/12/2024 2 :33 AM IT SECURITY SPECIALIST AMMONIA Routine 09/12/2024 1:38 AM IT SECURITY SPECIALIST TROPONIN T HIGH-SENSITIVITY 2-HOUR Timed 09/12/2024 1:[address] CHEST PE W CONTRAST ED 12:29 AM IT SECURITY SPECIALIST XR CHEST 1 VIEW ED 09/11/2024 11:41 PM IT SECURITY SPECIALIST EGFR STAT 09/11/2024 11:22 PM IT SECURITY SPECIALIST IMMATURE PLATELET FRACTION STAT 09/11/2024 11:22 PM IT SECURITY SPECIALIST DIFFERENTIAL AUTO STAT 09/11/2024 11: 22 PM IT SECURITY SPECIALIST D-DIMER, QUANTITATIVE STAT 09/11/2024 11:22 PM IT SECURITY SPECIALIST PRO B-TYPE NATRIURETIC PEPTIDE STAT 09/11/2024 11:22 PM IT SECURITY SPECIALIST COMPREHENSIVE METABOLIC PANEL STAT 09/11/2024 11:22 PM IT SECURITY SPECIALIST CBC WITH AUTO DIFFERENTIAL STAT 09/11/2024 11:22 PM IT SECURITY SPECIALIST TROPONIN T HIGH-SENSITIVITY SERIES (BASELINE, 2HR, 4HR, 6HR) Add-On 09/11/2024 11:15 PM IT SECURITY SPECIALIST from Last 3 Months Results * MCT Mobile Cardiac Telemetry Event Monitor (09/30/2024 12:05 PM IT SECURITY SPECIALIST) LV EF % CONS SCIMAGE Anatomical Region Laterality Modality Electrocardiogra phy 10/29/2024 11:5 9 PM IT SECURITY SPECIALIST Narrative 11/02/2024 2:33 PM IT SECURITY SPECIALIST [address] [address] EVENT MONITOR Patient Name: BEULAH GARCIA M : 1980 Study Date: 10/29/2024 11:59:00 PM Gender: F Tech: Ref Provider: BEE LESTER Height(Cm): BSA: Weight(Kg): Order Provider: BEE LESTER - PROCEDURES: Event Report: Event Monitor Report. INDICATIONS: R55 Syncope and collapse and I95.1 Orthostatic hypotension. FINDINGS: CONCLUSIONS: 1. Predominant rhythm is normal sinus rhythm with a minimum heart rate of 54 beats per minute in sinus and a maximum heart rate of 162 beats per minute also in sinus. Average heart rate of 81 beats per minute Total monitoring time of 19 days 0 hours 44 minutes. 2. Heart rate and rate variability is appropriate. 3. No prolonged pauses. 4. Rare PACs with 4,151 PACs amounting to less than 1% of total beats. 5. Rare PVCs with 3,409 PVCs amounting to less than 1% of total beats. 6. There were 4 patient activated events all with symptoms of chest pain/pressure and also shortness of breath. All noted to be in sinus rhythm ranging in heart rate from 69-117 beats per minute with no significant findings. Electronically Signed By: Dr Emmanuel Swartz 11/02/2024 2:32:19 PM IT SECURITY SPECIALIST Procedure Note Emmanuel Swartz MD - 11/02/[address] [place] [address] EVENT MONITOR Patient Name: BEULAH GARCIA M : 1980 Study Date: 10/29/2024 11:59:00 PM Gender: F Tech: Ref Provider: BEE LESTER Height(Cm): BSA: Weight(Kg): Order Provider: BEE LESTER - PROCEDURES: Event Report: Event Monitor Report. INDICATIONS: R55 Syncope and collapse and I95.1 Orthostatic hypotension. FINDINGS: CONCLUSIONS: 1. Predominant rhythm is normal sinus rhythm with a minimum heart rate of54 beats per minute in sinus and a maximum heart rate of 162 beats per minute also insinus. Average heart rate of 81 beats per minute Total monitoring time of 19 days 0 hours 44 minutes. 2. Heart rate and rate variability is appropriate. 3. No prolonged pauses. 4. Rare PACs with 4,151 PACs amounting to less than 1% of total beats. 5. Rare PVCs with 3,409 PVCs amounting to less than 1% of total beats. 6. There were 4 patient activated events all with symptoms of chestpain/pressure and also shortness of breath. All noted to be in sinus rhythm ranging in heart rate from 69-117 beatsper minute with no significant findings. Electronically Signed By: Dr Emmanuel Swartz 11/02/2024 2:32:19 PM IT SECURITY SPECIALIST Bee Lester Jr., MD CV CARDIAC SERVICES PROCEDURES Final Result * POCT glucose (09/13/2024 4:43 PM IT SECURITY SPECIALIST) Glucose, POC 126 70 - 199 mg/dL Blood 09/13/2024 4:43 PM IT SECURITY SPECIALIST 09/13/2024 4:43 PM IT SECURITY SPECIALIST Bee Lester Jr., MD LAB POCT ORDERABLES - DEVICE Final Result Performing Organization Address [facility] Co de Phone Number JUDITH THOMPSON ([place]) [address] [facility] [place] [address] * POCT glucose (09/13/2024 11:53 AM IT SECURITY SPECIALIST) Glucose, POC 160 70 - 199 mg/dL Blood 09/13/2024 11:5 3 AM IT SECURITY SPECIALIST 09/13/2024 11:53 AM IT SECURITY SPECIALIST Bee Lester Jr., MD LAB POCT ORDERABLES - DEVICE Final Result Performing Organization Address [facility] de Phone Number JUDITH THOMPSON ([place]) [address] [facility] [place] [address] * POCT glucose (09/13/2024 7:46 AM IT SECURITY SPECIALIST) Glucose, POC 112 70 - 199 mg/dL Blood 09/13/2024 7:46 AM IT SECURITY SPECIALIST 09/13/2024 7:46 AM IT SECURITY SPECIALIST Bee Lester Jr., MD LAB POCT ORDERABLES - DEVICE Final Result Performing Organization Address [facility] Co de Phone Number JUDITH JOYA) [address] [facility] [place] [address] * POCT glucose (09/13/2024 2:24 AM IT SECURITY SPECIALIST) Glucose, POC 106 70 - 199 mg/dL Blood 09/13/2024 2:24 AM IT SECURITY SPECIALIST 09/13/2024 2:24 AM IT SECURITY SPECIALIST us Bee Lester Jr., MD LAB POCT ORDERABLES - DEVICE Final Result Performing Organization Address City/[facility] Co de Phone Number JUDITH THOMPSON ([place]) [address] [place] [address] * POCT glucose (09/12/2024 9:03 PM IT SECURITY SPECIALIST) Glucose, POC 138 70 - 199 mg/dL Blood 09/12/2024 9:03 PM IT SECURITY SPECIALIST 09/12/2024 9:03 PM IT SECURITY SPECIALIST us Bee Lester Jr., MD LAB POCT ORDERABLES - DEVICE Final Result Performing Organization Address [facility] Co de Phone Number JUDITH GrovesKIPTON) [address] [facility] [place] [address] * ECG 12 lead (09/12/2024 7:03 PM IT SECURITY SPECIALIST) 09/12/2024 7:03 PM IT SECURITY SPECIALIST Narrative [facility] - 09/14/2024 7:03 AM IT SECURITY SPECIALIST Vent Rate: 71 bpm RR Interval: 837 msec OR Interval: 143 msec QRS Duration: 90 msec QT Interval: 412 msec QTC Interval: 435 msec P-R-T [place]: 38 - 8 - 9 degrees IMPRESSION: SINUS RHYTHM NORMAL ECG Electronically Signed By: Jamshid Terry MD us Kermit Landaverde MD ECG ORDERABLES Final Result Performing Organization Address City/[facility]/ZIP Co de Phone Number [facility] * POCT glucose (09/12/2024 4:44 PM IT SECURITY SPECIALIST) Glucose, POC 118 70 - 199 mg/dL Blood 09/12/2024 4:44 PM IT SECURITY SPECIALIST 09/12/2024 4:44 PM IT SECURITY SPECIALIST Bee Lester Jr., MD LAB POCT ORDERABLES - DEVICE Final Result Performing Organization Address [facility]/ZIP Co de Phone Number JUDITH THOMPSON ([place]) [address] [place] [address] * POCT glucose (09/12/2024 1:47 PM IT SECURITY SPECIALIST) Glucose, POC 157 70 - 199 mg/dL Blood 09/12/2024 1:47 PM IT SECURITY SPECIALIST 09/12/2024 1:47 PM IT SECURITY SPECIALIST us Bee Lester Jr., MD LAB POCT ORDERABLES - DEVICE Final Result Performing Organization Address [facility] Co de Phone Number JUDITH [facility] ([place]) [address] [place] [address] * POCT glucose (09/12/2024 11:32 AM IT SECURITY SPECIALIST) Glucose, POC 138 70 - 199 mg/dL Blood 09/12/2024 11:3 2 AM IT SECURITY SPECIALIST 09/12/2024 11:32 AM IT SECURITY SPECIALIST Bee Lester Jr., MD LAB POCT ORDERABLES - DEVICE Final Result Performing Organization Address City/[facility] Co de Phone Number JUDITH [facility] ([place]) [address] [place] [address] [place] [address] * TRANSTHORACIC ECHO (TTE) COMPLETE W DOPPLER/CF WO CONTRAST (09/12/2024 11:07 AM IT SECURITY SPECIALIST) Anatomical Region Laterality Modality Ultrasound 09/12/2024 9:44 AM IT SECURITY SPECIALIST Narrative 09/12/2024 11:24 AM IT SECURITY SPECIALIST [address] [address] Echocardiogram Report Patient Name: BEULAH GARCIA : 1980 Study Date: 2024-09-12 9:44:39 AM Gender: F Tech: MINE SAFETY ENGINEER Location: [place] [address] Ref Provider: DIONICIO WORKMAN Height(Cm): 157 BSA: 1.99 Weight(Kg): 90.7 Quality: Adequate Order Provider: DIONICIO WORKMAN PROCEDURES: Echocardiographic Report: Transthoracic echocardiogram with complete 2D, M-Mode, and color Doppler examination. INDICATIONS: Syncope. Measurements: 2D/M Mode Doppler Measurement Value Normal Range Measurement Value Normal Range EF Teich MM 46.7 [ 54.0 - 74.0 ] percent RUDY Vmax 3.82 cm2 LVIDd MM 5.21 [ 3.80 - 5.20 ] cm AV Mean PG 4 mmHg LVIDs MM 3.98 [ 2.20 - 3.50 ] cm AV Peak Gerson 1.30 [ 1.00 - 1.70 ] m/s LVPWd MM 1.04 [ 0.60 - 0.90 ] cm AV VTI 28.76 cm IVSd MM 1.16 [ 0.60 - 0.90 ] cm LVOT Diam 2.31 cm LA Dimension MM 3.92 [ 2.70 - 3.80 ] cm LVOT Peak Gerson 1.19 [ 0.70 - 1.10 ] m/s AoR Diam MM 2.54 [ 2.70 - 3.70 ] cm LVOT VTI 25.91 cm ACS MM 1.69 cm MV E Peak Gerson 0.88 [ 0.60 - 1.30 ] m/s ___ ___ ___ MV A Peak Gerson 0.84 [ 1.00 - 1.20 ] m/s ___ ___ ___ MV Mean PG 2 mmHg ___ ___ ___ MV PHT 56 [ 20 - 100 ] msec MVA 3.90 MV Decel Time 188 [ 104 - 258 ] msec PV Peak Gerson 0.99 [ 0.40 - 0.80 ] m/s TR Peak Gerson 2.79 [ 1.00 - 2.80 ] m/s TR Peak PG 31 mmHg RVSP 36.00 [ 10.00 - 36.00 ] mmHg E` 0.08 m/s E/E` 10.55 [ <= 10.00 ] PA Pressure 36.00 [ 10.00 - 36.00 ] mmHg Measurement Value Normal Range Measurement Value Normal Range 2D/M Mode Doppler - FINDINGS: Atrial Septum: Normal atrial septum. Left Ventricle: Normal left ventricular systolic function with no focal wall motion abnormalities. Normal left ventricular size. Normal left ventricular wall thickness. Normal left ventricular diastolic function. Ejection fraction is visually estimated at 60-70 %. Left Atrium: The left atrium is normal in size. Right Ventricle: Normal right ventricular size. Normal right ventricular systolic function. Right Atrium: The right atrium is normal in size. Aortic Valve: Normal structure of the aortic valve. Mitral Valve: Normal structure of the mitral valve. Pulmonic Valve: Normal structure of the pulmonic valve. Tricuspid Valve: Normal structure of the tricuspid valve. Normal right ventricular systolic pressure. Pericardium: Normal pericardium with no significant pericardial effusion. Aorta: Normal aortic root. Sinus of Valsalva is normal. Aortic arch is normal. Descending aorta is normal. IVC: Normal size and normal respiratory collapse consistent with normal right atrial pressure (<5 mmHg). Pulmonary Artery: Normal pulmonary artery size. CONCLUSIONS: Normal left ventricular systolic function with no focal wall motion abnormalities. Normal left ventricular size. Normal left ventricular wall thickness. Normal left ventricular diastolic function. Ejection fraction is visually estimated at 60-70 %. Electronically Signed By: Kermit Landaverde MD, [facility] 2024-09-12 11:23:29 IT SECURITY SPECIALIST Procedure Note Kermit Landaverde MD - 09/12/[address] [address] Echocardiogram Report Patient Name: BEULAH GARCIA : 1980 Study Date: 2024-09-12 9:44:39 AM Gender: F Tech: MINE SAFETY ENGINEER Location: [id number] Ref Provider: DIONICIO WORKMAN Height(Cm): 157 BSA: 1.99 Weight(Kg): 90.7 Quality: Adequate Order Provider: DIONICIO WORKMAN PROCEDURES: Echocardiographic Report: Transthoracic echocardiogram with complete 2D, M-Mode, and color Dopplerexamination. INDICATIONS: Syncope. Measurements: 2D/M ModeDoppler Measurement Value Normal Range MeasurementValue Normal Range EF Teich MM 46.7 [ 54.0 - 74.0 ] percent RUDY Vmax3.82 cm2 LVIDd MM 5.21 [ 3.80 - 5.20 ] cm AV Mean PG4 mmHg LVIDs MM 3.98 [ 2.20 - 3.50 ] cm AV Peak Vel1.30 [ 1.00 - 1.70 ] m/s LVPWd MM 1.04 [ 0.60 - 0.90 ] cm AV VTI28.76 cm IVSd MM 1.16 [ 0.60 - 0.90 ] cm LVOT Diam2.31 cm LA Dimension MM 3.92 [ 2.70 - 3.80 ] cm LVOT PeakVel 1.19 [ 0.70 - 1.10 ] m/s AoR Diam MM 2.54 [ 2.70 - 3.70 ] cm LVOT VTI25.91 cm ACS MM 1.69 cm MV E PeakVel 0.88 [ 0.60 - 1.30 ] m/s ___ ___ ___ MV A PeakVel 0.84 [ 1.00 - 1.20 ] m/s ___ ___ ___ MV Mean PG2 mmHg ___ ___ ___ MV PHT56 [ 20 - 100 ] msec MVA 3.90 MV Decel Time 188 [ 104 - 258 ] msec PV Peak Gerson 0.99 [ 0.40 - 0.80 ] m/s TR Peak Gerson 2.79 [ 1.00 - 2.80 ] m/s TR Peak PG 31 mmHg RVSP 36.00 [ 10.00 - 36.00 ] mmHg E` 0.08 m/s E/E` 10.55 [ <= 10.00 ] PA Pressure 36.00 [ 10.00 - 36.00 ] mmHg Measurement Value Normal Range MeasurementValue Normal Range 2D/M ModeDoppler - FINDINGS: Atrial Septum: Normal atrial septum. Left Ventricle: Normal left ventricular systolic function with no focal wall motionabnormalities. Normal left ventricular size. Normal left ventricular wall thickness. Normal leftventricular diastolic function. Ejection fraction is visually estimated at 60-70 %. Left Atrium: The left atrium is normal in size. Right Ventricle: Normal right ventricular size. Normal right ventricular systolicfunction. Right Atrium: The right atrium is normal in size. Aortic Valve: Normal structure of the aortic valve. Mitral Valve: Normal structure of the mitral valve. Pulmonic Valve: Normal structure of the pulmonic valve. Tricuspid Valve: Normal structure of the tricuspid valve. Normal right ventricular systolicpressure. Pericardium: Normal pericardium with no significant pericardial effusion. Aorta: Normal aortic root. Sinus of Valsalva is normal. Aortic arch is normal.Descending aorta is normal. IVC: Normal size and normal respiratory collapse consistent with normal rightatrial pressure (<5 mmHg). Pulmonary Artery: Normal pulmonary artery size. CONCLUSIONS: Normal left ventricular systolic function with no focal wall motionabnormalities. Normal left ventricular size. Normal left ventricular wall thickness. Normal leftventricular diastolic function. Ejection fraction is visually estimated at 60-70 %. Electronically Signed By: Kermit Landaverde MD, [facility] 2024-09-12 11:23:29 IT SECURITY SPECIALIST Dionicio Workman MD CV ECHO PROCEDURES Final Result * POCT glucose (09/12/2024 8:30 AM IT SECURITY SPECIALIST) Glucose, POC 87 70 - 199 mg/dL Blood 09/12/2024 8:30 AM IT SECURITY SPECIALIST 09/12/2024 8:30 AM IT SECURITY SPECIALIST Bee Lester Jr., MD LAB POCT ORDERABLES - DEVICE Final Result Performing Organization Address [facility] Co de Phone Number JUDITH [facility] ([place]) [address] [facility] [place] [address] * POCT glucose (09/12/2024 5:28 AM IT SECURITY SPECIALIST) Glucose, POC 183 70 - 199 mg/dL Blood 09/12/2024 5:28 AM IT SECURITY SPECIALIST 09/12/2024 5:28 AM IT SECURITY SPECIALIST Dionicio Workman MD LAB POCT ORDERABLES - DEVICE Fi nal Result [facility] ([place]) 1 [facility] [place] [address] * Troponin T high-sensitivity 6-hour (09/12/2024 4:58 AM IT SECURITY SPECIALIST) Trop T hs <6 <=14 ng/L Comment: Interpretive Data For further hscTnT resources including the diagnostic algorithm and an aid in interpretation, copy and paste this link: https://nrl.testcatalog.org/show/hsTrop Current Interpretive Data last revised 2020. Trop T hs delta -2 ng/L [facility] ([place]) Trop T hs interp Insignificant [facility] ([place]) Blood 09/12/2024 4:58 AM IT SECURITY SPECIALIST 09/12/2024 5:08 AM IT SECURITY SPECIALIST us Valdez Lee MD LAB BLOOD ORDERABLES Final R esult Performing Organization Address City/[facility]/ZIP Co de Phone Number [facility] ([place]) [address] [place] [address] [place] [address] * Hemoglobin A1c (09/12/2024 4:58 AM IT SECURITY SPECIALIST) [facility] Hgb A1C 5.4 4.0 - 5.6 % Estimated Average Glucose 108 mg/dL [facility] [place] ([place] Comment: The ADA recommends reporting an estimated Average Glucose (eAG) with all Hemoglobin A1c results using the equation derived from a study of 507 normal and diabetic adults. Minority populations were underrepresented and children were not included. (Diabetes Care 31:1476-4264, 2008). The eAG is not equivalent to a fasting glucose. Blood 09/12/2024 4:58 AM IT SECURITY SPECIALIST 09/12/2024 5:07 AM IT SECURITY SPECIALIST us Dionicio Workman MD LAB BLOOD ORDERABLES Final Resu lt [facility] [place] ([place]) 1 [facility] [place] [address] * (ABNORMAL) POCT glucose (09/12/2024 4:40 AM IT SECURITY SPECIALIST) [facility] Glucose, POC 234(H) 70 - 199 mg/dL Blood 09/12/2024 4:40 AM IT SECURITY SPECIALIST 09/12/2024 4:40 AM IT SECURITY SPECIALIST Dionicio Workman MD LAB POCT ORDERABLES - DEVICE Fi nal Result Performing Organization Address [facility] Co de Phone Number JUDITH [facility] ([place]) 1 [facility] [place] [address] * Troponin T high-sensitivity 4-hour (09/12/2024 4:12 AM IT SECURITY SPECIALIST) Trop T hs 6 <=14 ng/L Comment: Interpretive Data For further hscTnT resources including the diagnostic algorithm and an aid in interpretation, copy and paste this link: https://nrl.testcatalog.org/show/hsTrop Current Interpretive Data last revised 2020. Trop T hs delta -2 ng/L [facility] ([place]) Trop T hs interp Insignificant [facility] ([place]) Blood 09/12/2024 4:12 AM IT SECURITY SPECIALIST 09/12/2024 5:08 AM IT SECURITY SPECIALIST Valdez Lee MD LAB BLOOD ORDERABLES Final R esult Performing Organization Address [facility] Co de Phone Number JUD[facility] ([place]) 1 [facility] [place] [address] * (ABNORMAL) POCT glucose (09/12/2024 4:11 AM IT SECURITY SPECIALIST) Glucose, POC 67(L) 70 - 199 mg/dL Blood 09/12/2024 4:11 AM IT SECURITY SPECIALIST 09/12/2024 4:11 AM IT SECURITY SPECIALIST Dionicio Workman MD LAB POCT ORDERABLES - DEVICE Fi nal Result Performing Organization Address [facility] Co de Phone Number JUDITH THOMPSON ([place]) 1 [facility] [place] [address] * POCT glucose (09/12/2024 3:49 AM IT SECURITY SPECIALIST) Glucose, POC 71 70 - 199 mg/dL Blood 09/12/2024 3:49 AM IT SECURITY SPECIALIST 09/12/2024 3:49 AM IT SECURITY SPECIALIST Dionicio Workman MD LAB POCT ORDERABLES - DEVICE Fi nal Result Performing Organization Address City/[facility]/ZIP Co de Phone Number JUDITH [facility] ([place]) [address] [place] [address] [place] [address] * Influenza A/B, RSV, and COVID-19 PCR Nasopharyngeal (09/12/2024 3:42 AM IT SECURITY SPECIALIST) COVID-19 RNA Negative Negative Influenza A RNA Negative Negative [facility] ([place]) Influenza B RNA Negative Negative [facility] ([place]) RSV RNA Negative Negative [facility] ([place]) Comment: Interpretive data: Testing performed by [facility]. This test is performed using the [employer] Xpert Xpress CoV-2/Flu/RSV plus assay. This is a multiplex, real- time reverse transcriptase PCR assay intended for the qualitative detection of nucleic acid from SARS-CoV-2, influenza A, influenza B, and respiratory syncytial virus. This assay has been cleared by the [place] Food and Drug administration. The performance characteristics have been verified by the [facility]. Results must be considered in the clinical context, and a negative result does not rule out infection. Interpretive Data last revised 2023 Nasopharyngeal 09/12/2024 3: 42 AM IT SECURITY SPECIALIST 09/12/2024 3:47 AM IT SECURITY SPECIALIST Narrative [facility] ([place]) - 09/12/2024 4:27 AM IT SECURITY SPECIALIST Is the Patient experiencing symptoms consistent with COVID?->Unknown Dionicio Workman MD LAB MICROBIOLOGY - GENERAL ORDE RABLES Final Result [facility]ITH [facility]OMPSON ([place]) 1 [facility] Department [place] [address] * Drugs of Abuse Screen, Urine with Reflex Confirmation (09/12/2024 3:42 AM IT SECURITY SPECIALIST) Amphetamine, ur Not Detected CutOff 500ng/mL Comment: Interpretive Data - Amphetamines: Samples containing greater than 500 ng/mL d-methamphetamine or other cross-reacting amphetamine compounds are reported as positive. Amphetamine immunoassays are subject to significant false positive rates due to cross-reactivity of non-amphetamine drugs. Confirmatory testing required for definitive results. Current Interpretive Data was last reviewed 2023. Barbiturates, ur Not Detected CutOff 200ng/mL [facility] ([place]) Comment: Interpretive Data - Barbiturates: Samples containing greater than 200 ng/mL secobarbital or other cross-reacting barbiturate compounds are reported as positive. False positive and false negative results are possible. Confirmatory testing required for definitive results. Current Interpretive Data was last reviewed 2023. Benzodiazepines, ur Not Detected CutOff 100ng/mL [facility] ([place]) Comment: Interpretive Data - Benzodiazepines: Samples containing greater than 100 ng/mL nordiazepam or other cross-reacting compounds are reported as positive. False positive and false negative results are possible. Confirmatory testing required for definitive results. Current Interpretive Data was last reviewed 2023. Cannabinoids, ur Not Detected CutOff 50 ng/mL [facility] ([place]) Comment: Interpretive Data - Cannabinoids: Samples containing greater than 50 ng/mL delta-9 THC -COOH or other cross- reacting compounds are reported as positive. False positive and false negative results are possible. Confirmatory testing required for definitive results. Current Interpretive Data was last reviewed 2023. Cocaine, ur Not Detected CutOff 150ng/mL [facility] ([place]) Comment: Interpretive Data - Cocaine: Samples containing greater than 150 ng/mL benzoylecgonine or other cross- reacting compounds are reported as positive. False positive and false negative results are possible. Confirmatory testing required for definitive results. Current Interpretive Data was last reviewed 2023. Fentanyl, Ur Not Detected CutOff 5 ng/mL [facility] ([place]) Comment: Interpretive Data - Fentanyl: Samples containing greater than 5 ng/mL norfentanyl, fentanyl, or other cross-reacting fentanyl compounds are reported as positive. False positive and false negative results are possible. Confirmatory testing required for definitive results. Current Interpretive Data was last reviewed 2023. Methadone, ur Not Detected CutOff 300ng/mL [facility] ([place]) Comment: Interpretive Data - Methadone: Samples containing greater than 300 ng/mL d,l-methadone or other cross-reacting compounds are reported as positive. False positive and false negative results are possible. Confirmatory testing required for definitive results. Current Interpretive Data was last reviewed 2023. Opiates, ur Not Detected CutOff 300ng/mL [facility] ([place]) Comment: Interpretive Data - Opiates: Samples containing greater than 300 ng/mL morphine or other cross-reacting compounds are reported as positive. False positive and false negative results are possible. Confirmatory testing required for definitive results. Current Interpretive Data was last reviewed 2023. Oxycodone, ur Not Detected CutOff 100ng/mL [facility] ([place]) Comment: Interpretive Data - Oxycodone: Samples containing greater than 100 ng/mL oxycodone or other cross-reacting compounds are reported as positive. False positive and false negative results are possible. Confirmatory testing required for definitive results. Current Interpretive Data was last reviewed 2023. Phencyclidine, ur Not Detected CutOff 25 ng/mL [facility] ([place]) Comment: Interpretive Data - Phencyclidine: Samples containing greater than 25 ng/mL phencyclidine or other cross-reacting compounds are reported as positive. False positive and false negative results are possible. Confirmatory testing required for definitive results. Current Interpretive Data was last reviewed 2023. Urine Creatinine 124 mg/dL [facility]TE [facility]OMPS[facility] ([place]) Comment: Interpretive Data Urine Creatinine: < 10 mg/dL is extremely dilute = or > 10 but < 20 mg/dL is dilute = or > 20 mg/dL is normal Current Interpretive Data was last revised on 2017. Urine 09/12/2024 3:42 AM IT SECURITY SPECIALIST 09/12/2024 3:47 AM IT SECURITY SPECIALIST Narrative JUDITH THOMPS[facility] ([place]) - 09/12/2024 4:18 AM IT SECURITY SPECIALIST Drug of Abuse screening is performed by immunoassay for medical purposes only. This is not to be used for Pain Management purposes. If Detected, confirmation testing will be performed for Amphetamines, Cocaine, Fentanyl, Methadone, Opiates, Oxycodone or Phencyclidine. us Dionicio Workman MD LAB URINE ORDERABLES Final Resu lt [facility] ([place]) 1 [facility] Department [place] [address] * (ABNORMAL) Urinalysis reflex to microscopic and culture Urine (09/12/2024 3:42 AM IT SECURITY SPECIALIST) Color, ur Yellow Yellow Clarity, ur Clear Clear [facility] ([place]) Specific gravity, ur 1.010 1.003 - 1.030 [facility] ([place]) pH, urine 6.5 [facility] ([place]) Comment: Interpretive Data U rine pH is affected by diet, medications, systemic acid-base disturbances, and renal tubular function. pH may affect urinary stone formation. For example, urine pH below 6.0 may help reduce the tendency for calcium phosphate stones and pH greater than 6.0 may reduce the tendency for uric acid stone formation. Source: [facility] [employer] Current Interpretive Data was last revised on 2017 Protein, ur ql Trace Negative [facility] ([place]) Glucose, ur ql 3+(A) Negative [facility] ([place]) Ketones, ur Negative Negative [facility] ([place]) Bilirubin, ur Negative Negative [facility] ([place]) Blood, ur Negative Negative [facility] ([place]) Urobilinogen, ur 4.0(A) <2.0 mg/dL [facility] ([place]) Nitrite, ur Negative Negative [facility] ([place]) Leukocyte esterase, ur Negative Negative [facility] ([place]) UA reflex comment Reflex conditions for microscopic UA and culture not met. [facility] ([place]) Urine 09/12/2024 3:42 AM IT SECURITY SPECIALIST 09/12/2024 3:47 AM IT SECURITY SPECIALIST us Dionicio Workman MD LAB MICROBIOLOGY - GENERAL ORDE [facility] Final Result JUDITH THOMPSON ([place]) 1 [facility] Department [place] [address] * POCT glucose (09/12/2024 3:29 AM IT SECURITY SPECIALIST) Glucose, POC 70 70 - 199 mg/dL Blood 09/12/2024 3:29 AM IT SECURITY SPECIALIST 09/12/2024 3:29 AM IT SECURITY SPECIALIST Dionicio Workman MD LAB POCT ORDERABLES - DEVICE Fi nal Result Performing Organization Address City/[facility]/ZIP Co de Phone Number JUDITH THOMPSON ([place]) 1 [facility] [place] [address] * (ABNORMAL) POCT glucose (09/12/2024 3:05 AM IT SECURITY SPECIALIST) Glucose, POC 64(L) 70 - 199 mg/dL Blood 09/12/2024 3:05 AM IT SECURITY SPECIALIST 09/12/2024 3:05 AM IT SECURITY SPECIALIST Dionicio Workman MD LAB POCT ORDERABLES - DEVICE Fi nal Result Performing Organization Address [facility] Co de Phone Number [facility] ([place]) 1 [facility] [place] [address] * (ABNORMAL) POCT glucose (09/12/2024 2:33 AM IT SECURITY SPECIALIST) Glucose, POC 61(L) 70 - 199 mg/dL Blood 09/12/2024 2:33 AM IT SECURITY SPECIALIST 09/12/2024 2:33 AM IT SECURITY SPECIALIST Dionicio Workman MD LAB POCT ORDERABLES - DEVICE Fi nal Result Performing Organization Address City/[facility] Co de Phone Number JUDITH THOMPSON ([place]) 1 [facility] [place] [address] * Troponin T high-sensitivity 2-hour (09/12/2024 1:38 AM IT SECURITY SPECIALIST) Trop T hs 6 <=14 ng/L Comment: Interpretive Data For further hscTnT resources including the diagnostic algorithm and an aid in interpretation, copy and paste this link: https://nrl.testcatalog.org/show/hsTrop Current Interpretive Data last revised 2020. Trop T hs delta -2 ng/L [facility] ([place]) Trop T hs interp Insignificant [facility] ([place]) Blood 09/12/2024 1:38 AM IT SECURITY SPECIALIST 09/12/2024 1:41 AM IT SECURITY SPECIALIST Valdez Lee MD LAB BLOOD ORDERABLES Final R esult Performing Organization Address [facility] Co de Phone Number JUDITH THOMPSON ([place]) 1 [facility] [place] [address] * Ammonia (09/12/2024 1:38 AM IT SECURITY SPECIALIST) Ammonia 42 <=50 mcmol/L Blood 09/12/2024 1:38 AM IT SECURITY SPECIALIST 09/12/2024 1:41 AM IT SECURITY SPECIALIST Valdez Lee MD LAB BLOOD ORDERABLES Final R esult Performing Organization Address [facility] de Phone Number JUDITH THOMPSON ([place]) 1 [facility] [place] [address] * CT Chest PE (CTA) W Contrast (09/12/2024 12:29 AM IT SECURITY SPECIALIST) Anatomical Region Laterality Modality Body N/A Computed Tomogra phy 09/12/2024 12:3 1 AM IT SECURITY SPECIALIST Narrative 09/12/2024 12:41 AM IT SECURITY SPECIALIST EXAM DESCRIPTION: CT CHEST PE (CTA) W CONTRAST REASON FOR STUDY: Chest pain, PE suspected, low/intermediate prob, positive D-dimer Pulmonary embolism (PE) suspected, positive D-dimer Sob, chest pains Passed out TECHNIQUE: CT angiogram of the chest performed with intravenous contrast using helical scanning technique with dynamic intravenous contrast injection. Reconstructed coronal and sagittal MPR images reviewed. All images stored on PACS. 3D MIP images rendered on scanning unit and reviewed at time of interpretation. Automated exposure control was used as a dose optimization technique for this examination. CONTRAST TYPE/DOSE: 100mL of IOVERSOL 350 MG IODINE/ML INTRAVENOUS SYRINGE injected via intravenous COMPARISON: None FINDINGS: VASCULATURE: No identified pulmonary emboli. LUNGS: No nodules or masses. No pneumonia. PLEURA: No effusion. No pneumothorax. MEDIASTINUM/ESSENCE: No identified masses or abnormal nodes. HEART: Heart size is normal with no pericardial effusion. AXILLA: No adenopathy. CHEST WALL: No masses. No subcutaneous air. HARDWARE/LINES/TUBES: None. UPPER ABDOMEN: The liver demonstrates a nodular contour suggesting cirrhosis. Minimal perihepatic ascites is noted. MUSCULOSKELETAL: No significant abnormality. OTHER: No significant abnormality. IMPRESSION: No evidence of pulmonary embolism to the subsegmental level. Nodular contour of the liver suggesting cirrhosis. Minimal perihepatic ascites. THIS IS AN ELECTRONICALLY VERIFIED FINAL REPORT 09/12/2024 12:41 AM - Electronically signed by Brien Pretty M.D. KT: KT Report ID: [id number] Reading Location: [id number] Procedure Note Brien Pretty MD - 09/12/2024 EXAM DESCRIPTION: CT CHEST PE (CTA) W CONTRAST REASON FOR STUDY: Chest pain, PE suspected, low/intermediate prob,positive D-dimer Pulmonary embolism (PE) suspected, positive D-dimer Sob, chest painsPassed out TECHNIQUE: CT angiogram of the chest performed with intravenous contrastusing helical scanning technique with dynamic intravenous contrast injection. Reconstructed coronal and sagittal MPR images reviewed. All images storedon PACS. 3D MIP images rendered on scanning unit and reviewed at time of interpretation. Automated exposure control was used as a doseoptimization technique for this examination. CONTRAST TYPE/DOSE: 100mL of IOVERSOL 350 MG IODINE/ML INTRAVENOUSSYRINGE injected via intravenous COMPARISON: None FINDINGS: VASCULATURE: No identified pulmonary emboli. LUNGS: No nodules or masses. No pneumonia. PLEURA: No effusion. No pneumothorax. MEDIASTINUM/ESSENCE: No identified masses or abnormal nodes. HEART: Heart size is normal with no pericardial effusion. AXILLA: No adenopathy. CHEST WALL: No masses. No subcutaneous air. HARDWARE/LINES/TUBES: None. UPPER ABDOMEN: The liver demonstrates a nodular contour suggesting cirrhosis. Minimal perihepatic ascites is noted. MUSCULOSKELETAL: No significant abnormality. OTHER: No significant abnormality. IMPRESSION: No evidence of pulmonary embolism to the subsegmental level. Nodular contour of the liver suggesting cirrhosis. Minimal perihepatic ascites. THIS IS AN ELECTRONICALLY VERIFIED FINAL REPORT 09/12/2024 12:41 AM - Electronically signed by Brien Pretty M.D. KT: KT Report ID: [id number] Reading Location: [id number] Valdez Lee MD IMG CT PROCEDURES Final Resu lt * XR Chest 1 Vw Portable (09/11/2024 11:41 PM IT SECURITY SPECIALIST) Anatomical Region Laterality Modality Body, Chest N/A Computed Radiogr aphy 09/11/2024 11:4 3 PM IT SECURITY SPECIALIST Narrative 09/11/2024 11:45 PM IT SECURITY SPECIALIST EXAM DESCRIPTION: XR CHEST 1 VIEW REASON FOR STUDY: pain C/o vomiting, chest pain, and syncopal episode today. Hx of anxiety, HTN, former smoker TECHNIQUE: Single radiographic view of the chest. COMPARISON: Chest x-ray of August 10, 2023. FINDINGS: LUNGS/PLEURA: Lungs are mildly hypoventilatory yet clear. There is no significant change as compared to previous study. HEART/MEDIASTINUM: Cardiac silhouette is normal. Remaining mediastinal silhouettes are unremarkable. HARDWARE/LINES/TUBES: None. BONES: No acute findings. IMPRESSION: No acute cardiopulmonary abnormality. THIS IS AN ELECTRONICALLY VERIFIED FINAL REPORT 09/11/2024 11:45 PM - Electronically signed by Viridiana Collier M.D. SN: Report ID: [id number] Reading Location: [id number] Procedure Note Viridiana Collier MD - 09/11/2024 EXAM DESCRIPTION: XR CHEST 1 VIEW REASON FOR STUDY: pain C/o vomiting, chest pain, and syncopal episode today. Hx of anxiety, HTN, former smoker TECHNIQUE: Single radiographic view of the chest. COMPARISON: Chest x-ray of August 10, 2023. FINDINGS: LUNGS/PLEURA: Lungs are mildly hypoventilatory yet clear. There is no significant change as compared to previous study. HEART/MEDIASTINUM: Cardiac silhouette is normal. Remaining mediastinal silhouettes are unremarkable. HARDWARE/LINES/TUBES: None. BONES: No acute findings. IMPRESSION: No acute cardiopulmonary abnormality. THIS IS AN ELECTRONICALLY VERIFIED FINAL REPORT 09/11/2024 11:45 PM - Electronically signed by Viridiana Collier M.D. SN: Report ID: [id number] Reading Location: [place] [id number] Valdez Lee MD IMG XR PROCEDURES Final Resu lt * Immature platelet fraction (09/11/2024 11:22 PM IT SECURITY SPECIALIST) IPF 5.6 1.6 - 10.1 % Blood 09/11/2024 11:2 2 PM IT SECURITY SPECIALIST 09/11/2024 11:22 PM IT SECURITY SPECIALIST Valdez Lee MD LAB BLOOD ORDERABLES Final R esult Performing Organization Address City/State/[facility] Co de Phone Number [facility] 1 [facility] Department of Laboratories [place], [place] [id number] * eGFR (09/11/2024 11:22 PM IT SECURITY SPECIALIST) eGFR 69 >=60 mL/min/1. 73 m2 Comment: Interpretive Data Reference Interval Normal >/= 90 mL/min/1.73m2 Mildly decreased* 60 - 89 mL/min/1.73m2 Mildly to moderately decreased 45 - 59 mL/min/1.73m2 Moderately to severely decreased 30 - 44 mL/min/1.73m2 Severely decreased 15 - 29 mL/min/1.73m2 Kidney Failure < 15 mL/min/1.73m2 *Relative to young adult level Estimated glomerular filtration rate is determined by the 2020 CKD-EPI equation recommended by the National Kidney Foundation (A Unifying Approach to GFR Estimation: Recommendations of the NKF-ASK Task Force on Reassessing the Inclusion of Race in Diagnosing Kidney Disease, JASN 2020). The CKD-EPI equation should not be used for patients with unstable renal function and has not been validated in children and those over 70. Current interpretive data was last reviewed 2021. Blood 09/11/2024 11:2 2 PM IT SECURITY SPECIALIST 09/11/2024 11:22 PM IT SECURITY SPECIALIST us Valdez Lee MD LAB BLOOD ORDERABLES Final R esult [facility] ([place]) 1 [facility] [place] [address] * Differential, auto (09/11/2024 11:22 PM IT SECURITY SPECIALIST) Neutrophil abs 2.0 1.5 - 6.5 K/cumm Imm gran abs 0.0 0.0 - 0.1 K/cumm [facility] ([place]) Lymphocyte abs 1.2 0.8 - 3.3 K/cumm [facility] ([place]) Monocyte abs 0.2 0.2 - 0.8 K/cumm [facility] ([place]) Eosinophil abs 0.1 0.0 - 0.5 K/cumm [facility] ([place]) Basophil abs 0.0 0.0 - 0.1 K/cumm [facility] ([place]) Neutrophil pct 56.5 % [facility] ([place]) Comment: Interpretive Data Percent cell count reference ranges are not reported, since discordance with absolute values may lead to misinterpretation of CBC data. Current Interpretive Data was last revised on 2018. Imm gran pct 0.0 % [facility] ([place]) Comment: Interpretive Data Percent cell count reference ranges are not reported, since discordance with absolute values may lead to misinterpretation of CBC data. Current Interpretive Data was last revised on 2018. Lymphocyte pct 33.6 % [facility] ([place]) Comment: Interpretive Data Percent cell count reference ranges are not reported, since discordance with absolute values may lead to misinterpretation of CBC data. Current Interpretive Data was last revised on 2018. Monocyte pct 5.8 % JUDITH THOMPSON ([place]) Comment: Interpretive Data Percent cell count reference ranges are not reported, since discordance with absolute values may lead to misinterpretation of CBC data. Current Interpretive Data was last revised on 2018. Eosinophil pct 3.2 % [facility]TENE R [facility] ([place]) Comment: Interpretive Data Percent cell count reference ranges are not reported, since discordance with absolute values may lead to misinterpretation of CBC data. Current Interpretive Data was last revised on 2018. Basophil pct 0.9 % JUDITH THOMPSON ([place]) Comment: Interpretive Data Percent cell count reference ranges are not reported, since discordance with absolute values may lead to misinterpretation of CBC data. Current Interpretive Data was last revised on 2018. Blood 09/11/2024 11:2 2 PM IT SECURITY SPECIALIST 09/11/2024 11:22 PM IT SECURITY SPECIALIST us Valdez Lee MD LAB BLOOD ORDERABLES Final R esult JUDITH THOMPSON ([place]) 1 [facility] [place] [address] * Pro B-type natriuretic peptide (09/11/2024 11:22 PM IT SECURITY SPECIALIST) NT-proBNP 123 <=300 pg/mL Comment: Interpretive Comments: A. Dyspnea in Acute Care Setting All Ages: < 300 pg/ml, acute heart failure unlikely. < 50 yrs: 300 - 450 pg/ml, further investigation warranted. > 450 pg/ml, acute heart failure likely. 50 - 74 yrs: 300 - 900 pg/ml, further investigation warranted. > 900 pg/ml, acute heart failure likely . > or = 75 yrs: 450 - 1800 pg/ml, further investigation warranted. > 1800 pg/ml, acute heart failure likely. B. Non-acute Setting < 75 yrs < 125 pg/ml, rules out heart failure. > or = 125 pg/ml, further investigation warranted. > or = 75 yrs < 450 pg/ml, rules out heart failure. > or = 450 pg/ml, further investigation warranted. - Knowledge of each individual patient's NT-proBNP range may be more useful than using similar cut-points for every patient. Please note that marked elevations in NT-proBNP levels may be observed in state other than Left Ventricular Congestive Failure, including: acute coronary syndromes, right heart strain/failure (including pulmonary embolism and cor pulmonale), critical illness, renal failure, as well as advanced age. - References: 1. Chloe ROBLES et.al. Eur Heart J. 2006:27:330-337. 2. Anette RW, Joana STARKS. J. AM Aishwarya Cardiol: Cardiovasc Imag. 2009;2: 216- 225. Interpretive Data Last Revised Date: 2018. Blood 09/11/2024 11:2 2 PM IT SECURITY SPECIALIST 09/11/2024 11:22 PM IT SECURITY SPECIALIST Valdez Lee MD LAB BLOOD ORDERABLES Edited Result - Final [facility] ([place]) [facility] Department [place] [address] * (ABNORMAL) CBC with auto differential (09/11/2024 11:22 PM IT SECURITY SPECIALIST) WBC 3.5(L) 3.8 - 9.9 K/cumm Hgb 12.7 11.9 - 15.5 g/dL [facility]) Hct 37.9 35.6 - 45.5 % [facility] Plt 48(L) 150 - 400 K/cumm [facility] ([place]) Comment:No clot detected in sample. MPV 12.4(H) 9.1 - 12.3 fL [facility] ([place]) RBC 4.11 3.90 - 5.20 M/cumm [facility] ([place]) MCV 92.2 81.3 - 96.4 fL [facility] ([place]) MCH 30.9 27.1 - 33.3 pg [facility] ([place]) MCHC 33.5 32.3 - 35.7 g/dL [facility] ([place]) RDW CV 15.7(H) 11.1 - 14.9 % [facility] ([place]) RDW SD 53.4(H) 35.7 - 48.1 fL [facility] ([place]) NRBC abs 0.00 0.00 - 0.01 K/cumm [facility] ([place]) Blood 09/11/2024 11:2 2 PM IT SECURITY SPECIALIST 09/11/2024 11:22 PM IT SECURITY SPECIALIST Valdez Lee MD LAB BLOOD ORDERABLES Final R esult Performing Organization Address City/[facility] Co de Phone Number [facility] ([place]) 1 [facility] [place] [address] * (ABNORMAL) D-dimer, quantitative (09/11/2024 11:22 PM IT SECURITY SPECIALIST) D-Dimer 669(H) <=499 ng/mL FEU [facility] ([place]) Comment: Interpretive data FDA approved the D-dimer, in conjunction with a low or moderate pretest probability score, to exclude venous thromboembolic events (VTE) (PE and DVT) in outpatients when the D-dimer result is < 500 ng/ml FEU. Evidence supports using an age-adjusted D-dimer cut-off for outpatients older than 50 (age x 10) to improve specificity without sacrificing sensitivity. Example: age 68, VTE cut-off 680 ng/ml FEU. References; Schouten HT et al. Brit Med J. 2013;346:f2492. Zakia et al. Annals Int Med. 2015;163:701-11. Current interpretive data was last revised on 2019. Blood 09/11/2024 11:2 2 PM IT SECURITY SPECIALIST 09/11/2024 11:28 PM IT SECURITY SPECIALIST Valdez Lee MD LAB BLOOD ORDERABLES Final R esult Performing Organization Address City/[facility]/ZIP Co de Phone Number [facility] ([place]) [facility] [place] [address] * (ABNORMAL) Comprehensive metabolic panel (09/11/2024 11:22 PM IT SECURITY SPECIALIST) Sodium 144 135 - 145 mmol/L Potassium, pl 3.5 3.3 - 4.9 mmol/L [facility]) Chloride 110 97 - 110 mmol/L [facility]) CO2 24 22 - 32 mmol/L [facility] ([place]) Anion gap 10 2 - 15 mmol/L [facility] ([place]) BUN 12 6 - 25 mg/dL [facility] ([place]) Creatinine 1.02 0.60 - 1.10 mg/dL [facility] ([place]) Glucose 75 70 - 199 mg/dL [facility] ([place]) Comment: Interpretive Data Fasting glucose >/= 126 mg/dl is diagnostic for diabetes. Fasting is defined as no caloric intake for at least 8 hours. Fasting glucose between 100 mg/dl to 125 mg/dl is diagnostic of prediabetes. In a patient with classic symptoms of hyperglycemia or hyperglycemic crisis, a random glucose >/= 200 mg/dl is diagnostic for diabetes. In the absence of unequivocal hyperglycemia, results should be confirmed by repeat testing. The classification and Diagnosis of Diabetes Diabetes Care 202; 46: S19-S40. Current interpretive data was last revised 2022. Calcium 9.4 8.5 - 10.3 mg/dL [facility] ([place]) Bilirubin, total 0.6 0.1 - 1.2 mg/dL [facility] ([place]) Protein, pl 6.4(L) 6.5 - 8.5 g/dL [facility] ([place]) Albumin 3.8 3.5 - 5.0 g/dL [facility] ([place]) Alk phos 71 40 - 130 Units/L [facility] ([place]) ALT 26 7 - 45 Units/L [facility] ([place]) AST 22 10 - 45 Units/L [facility] ([place]) Comment:Slightly Hemolyzed S pecimen Blood 09/11/2024 11:2 2 PM IT SECURITY SPECIALIST 09/11/2024 11:22 PM IT SECURITY SPECIALIST us Valdez Lee MD LAB BLOOD ORDERABLES Final R esult [facility] ([place]) [facility] Department [place] [address] * Troponin T high-sensitivity series (baseline, 2hr, 4hr, 6hr) (09/11/2024 11:15 PM IT SECURITY SPECIALIST) Trop T hs 8 <=14 ng/L Comment: Interpretive Data For further hscTnT resources including the diagnostic algorithm and an aid in interpretation, copy and paste this link: https://nrl.testcatalog.org/show/hsTrop Current Interpretive Data last revised 2020. Blood 09/11/2024 11:1 5 PM IT SECURITY SPECIALIST 09/12/2024 1:25 AM IT SECURITY SPECIALIST Valedz Lee MD LAB BLOOD ORDERABLES Final R esult [facility] ([place]) [facility] Department [place] [address] from Last 3 Months Insurance [facility] Advance Directives For more information, please contact: [phone] * LIMITED - No CPR (Latest Code Status on File) Date Activated Date Inactivated Comments 09/12/2024 5:23 AM 09/13/2024 10:00 PM Question Answer Comments Provide aggressive medical m anagement before a full cardiopulmonary arrest occurs. Use antibiotics, IV Fluids, and medical treatment unless specifically selected below: No intubationNo non-invasive ventilationNo cardioversionNo internal / external pacemakerNo vasopressors * Full Code Date Activated Date Inactivated Comments 09/12/2024 1:26 AM 09/12/2024 5:23 AM Care Teams Bus And Trolley Inspecting Dispatcher Relationship Specialty Start Date End Date Sadia Morris NP [facility] [address] [address] PCP - General Nurse Practitioner 02/28/24
--- OUTSIDE RECORDS SUMMARY | 2024-12-07 01:45 | XMS_ITS | Clinical Summary ---
Author Organization [facility] Address [address], [facility] [address] [place] [address] Phone Care Team Providers Care Assistant Professor Of Chemistry Name Role Phone Ric Malik MD Unavailable [phone] Ric Malik MD Unavailable [phone] Natacha Hoyt MD Primary Care Provider Allergies Active Allergy Reactions Criticality Noted Date Comments Sumatriptan Other (see Comments) 03/15/2023 Rydal Oil Hives,Nausea,Vomitin g,Other (see Comments) Low 04/11/2017 headache Medications topiramate (TOPAMAX) 200 MG Tablet Take 200 mg by mouth daily. Active cloNIDine (CATAPRES) 0.1 MG Tablet Take 0.1 mg by mouth 2 times daily. Active dicyclomine (BENTYL) 20 MG Tablet Take 20 mg by mouth. Take 1-4 times daily prn Active cyclobenzaprine (FLEXERIL) 10 MG Tablet Take 10 mg by mouth 3 times daily as needed for Muscle spasms. Active diphenhydrAMINE (BENADRYL) 25 MG Capsule Take 25 mg by mouth every 6 hours as needed. Active acetaminophen (TYLENOL) 500 MG Tablet Take 1,000 mg by mouth every 4 hours as needed for Pain. Active atorvastatin (LIPITOR) 80 MG Tablet Take 80 mg by mouth daily. Active lisinopril (PRINIVIL, ZESTRIL) 2.5 MG Tablet Take 2.5 mg by mouth. 08/27/20 19 Active Dexlansoprazole 60 MG CAPSULE DELAYED RELEASE Take by mouth. Active DULoxetine (CYMBALTA) [address] Particles Take 30 mg by mouth daily. Active Cholecalciferol (VITAMIN D3 PO) Take 2,000 Units by mouth. Active hydrOXYzine (ATARAX) 25 MG Tablet TAKE 1 TABLET BY MOUTH THREE TIMES DAILY NEEDED 03/07/20 22 Active HumuLIN R U-500 KwikPen 500 UNIT/ML Solution Pen-injector 70 Units in the morning and at bedtime. 04/22/20 22 Active ondansetron (ZOFRAN-ODT) 4 MG TABLET DISPERSIBLE Take 4 mg by mouth. 03/28/20 22 Active sucralfate (CARAFATE) 1 GM Tablet Take 1 g by mouth. 03/28/20 22 Active propranolol (INDERAL) 10 MG Tablet 07/05/20 22 Active busPIRone (BUSPAR) 15 MG Tablet Take 15 mg by mouth 2 times daily. 07/05/20 22 Active traZODone (DESYREL) 150 MG Tablet TAKE 1/2 TO 1 (ONE-HALF TO ONE) TABLET BY MOUTH ONCE DAILY AT BEDTIME NEEDED 03/13/20 23 Active albuterol 108 (90 Base) MCG/ACT Aerosol Solution INHALE 1 PUFF BY MOUTH EVERY 4 HOURS NEEDED FOR SHORTNESS OF BREATH FOR WHEEZING 05/27/20 23 Active hyoscyamine (ANASPAZ, LEVSIN) 0.125 MG Tablet TAKE 1 TABLET BY MOUTH 4 TIMES DAILY 05/10/20 23 Active propranolol (INDERAL) 10 MG Tablet Take 20 mg by mouth. 01/31/20 24 Active Vraylar 6 MG Capsule 05/21/20 24 Active Mounjaro 5 MG/0.5ML Solution Pen-injector INJECT 5 MG SUBCUTANEOUSLY ONCE A WEEK 04/27/20 24 Active Rizatriptan Benzoate 5 MG Tablet TAKE 1 TABLET AT ONSET OF HEADACHE, IF NO RELIEF MAY REPEAT 1 TABLET AFTER AT LEAST 2 HOURS. MAX OF 3 PER 24 HOUR 03/01/20 24 Active prazosin (MINIPRESS) 2 MG Capsule TAKE 1 CAPSULE BY MOUTH AT BEDTIME 03/15/20 24 Active Continuous Glucose Transmitter (Dexcom G6 Transmitter) Misc 05/09/20 24 Active folic acid (FOLVITE) 1 MG Tablet Take 1 Tablet by mouth daily. 30 Tablet 3 05/26/20 24 Active Active Problems Problem Noted Date Diagnosed Date Iron deficiency 05/16/2022 Anemia due to multiple mechanisms 02/06/2018 Thrombocytopenia 02/06/2018 Mediastinal lymphadenopathy 05/30/2017 Abdominal lymphadenopathy 04/11/2017 Hepatosplenomegaly 04/11/2017 Liver lesion 04/11/2017 Encounters Date Type Department Care Team Description 09/24/2024 1:30 PM HEAD OF VISUAL MERCHANDISING Lab [facility] [address] [phone] Lab, [facility]; B12 deficiency; Thrombocytopenia (HCC) 09/24/2024 1:00 PM HEAD OF VISUAL MERCHANDISING Office Visit [facility] [address] [phone] Vivian Pena APRN, [place] Iron deficiency (Primary Dx); B12 deficiency; Thrombocytopenia (HCC) 09/24/2024 Travel from Last 3 Months Family History Medical History Relation Name Comments Diabetes Father Hypertension Father Stroke Father Chronic Obstructive Pulmonary Disease Mother Heart Disease Mother Hypertension Mother Crohn's Disease Sister Other-comment Sister colitis Relation Name Status Comments Father Mother Sister Social History Tobacco Use Types Packs/Day Years Used Date Smoking Tobacco: Former Cigarettes 1 13 0 04/11/1994 - 04/11/2007 Smokeless Tobacco: Never Tobacco Cessation:Counseling Given: Not Answered Alcohol Use Standard Drinks/Week Comments No 0 (1 standard drink = 0.6 oz pur e alcohol) PHQ-2 Answer Date Recorded Total Score - Questions 1-9 0 04/14 Sexually Active Control Partners Comments Yes Comments Unknown Sex and Gender Information Value Date Recorded Sex Assigned at Not on file Legal Sex Female 8:10 PM CDT Gender Identity Not on file Sexual Orientation Not on file Last Filed Vital Signs Vital Sign Reading Time Taken Comments Blood Pressure 118/72 09/24/2024 1:11 PM HEAD OF VISUAL MERCHANDISING Pulse 82 09/24/2024 1:11 PM HEAD OF VISUAL MERCHANDISING Temperature 36.4 C (97.5 F) 09/24/2024 1:11 PM HEAD OF VISUAL MERCHANDISING Respiratory Rate 18 09/24/2024 1:11 PM HEAD OF VISUAL MERCHANDISING Oxygen Saturation 99% 09/24/2024 1:11 PM HEAD OF VISUAL MERCHANDISING Inhaled Oxygen Concentration - - Weight 87.5 kg (193 lb) 09/24/2024 1:11 PM HEAD OF VISUAL MERCHANDISING Height 157.5 cm (5' 2 ) 09/24/2024 1:11 PM HEAD OF VISUAL MERCHANDISING Body Mass Index 35.3 09/24/2024 1:11 PM HEAD OF VISUAL MERCHANDISING Plan of Treatment Upcoming Encounters Date Type Department Care Team (Late st Contact Info) Description 01/21/2025 1:00 PM CDT Office Visit [facility] [address] [place] [address] Ric Malik MD [address] [place] [address] [place], [place] [address] Health Maintenance Due Date Last Done Comments Mammogram 1978 TdaP Immunization 1978 Pap Smear 1999 Cervical Cancer Screening (CCS) 2008 HPV/Cotest 2008 Discussion re Starting/Frequency of Mammograms 2018 Influenza Immunization (#1) 06/14/202411/2019, 09/14/2019 SARS-COV-2 Immunization ( season) 2024 Colonoscopy 08/27/2032 08/27/2022 Colorectal Cancer Screening 08/27/2032 Respiratory Syncytial Virus (RSV) Immunization (Adult) (1 - 1-dose 75+ series) 2053 08/27/2022 Hepatitis C Virus (HCV) Screening Completed 11/14/2017 Hepatitis B Immunization Completed 019, 01/01/2019, 12/04/2018 Meningococcal Immunization (ACWY) Aged Out No longer eligible b ased on patient's age to complete this topic Pneumococcal Immunization Combined Aged Out No longer eligible b ased on patient's age to complete this topic Rotavirus Immunization Aged Out No lo nger eligible based on patient's age to complete this topic Procedures Procedure Name Priority Date/Time Associated Diagnosis Comments CBC WITH AUTO DIFF OH Routine 09/24/2024 1:30 PM HEAD OF VISUAL MERCHANDISING CMP (COMPREHENSIVE METABOLIC PANEL) Routine 09/24/2024 1:30 PM HEAD OF VISUAL MERCHANDISING Iron deficiency B12 deficiency Thrombocytopenia (HCC) VITAMIN B12 Routine 09/24/2024 1:30 PM HEAD OF VISUAL MERCHANDISING Iron deficiency B12 deficiency Thrombocytopenia (HCC) FOLIC ACID (FOLATE) Routine 09/24/2024 1 :30 PM HEAD OF VISUAL MERCHANDISING Iron deficiency B12 deficiency Thrombocytopenia (HCC) FERRITIN Routine 09/24/2024 1:30 PM HEAD OF VISUAL MERCHANDISING Iron deficiency B12 deficiency Thrombocytopenia (HCC) IRON W/ IRON BINDING CAPACITY OH Routine 09/24/2024 1:30 PM HEAD OF VISUAL MERCHANDISING Iron deficiency B12 deficiency Thrombocytopenia (HCC) from Last 3 Months Results * IRON W/ IRON BINDING CAPACITY OH (09/24/2024 1:30 PM HEAD OF VISUAL MERCHANDISING) IRON 133 50 - 212 ug/dL [facility] UIBC 226 155 - 355 ug/dL [facility] TIBC 359 261 - 478 ug/dl [facility] % Saturation 37 20 - 50 % [facility] 09/24/2024 1:30 PM HEAD OF VISUAL MERCHANDISING Narrative [facility] - 09/24/2024 2:15 PM HEAD OF VISUAL MERCHANDISING Release to patient->Immediate us Vivian Pena APRN, RESIDENTIAL AIDE LAB SEND OUTS Fin al Result [facility] [address] [place] [address], * (ABNORMAL) CBC WITH AUTO DIFF [place] (09/24/2024 1:30 PM HEAD OF VISUAL MERCHANDISING) WBC 7.2 4.0 - 10.0 10*3/uL [facility] HGB 15.0 11.2 - 15.7 g/dL [facility] HCT 43.7 34.1 - 44.9 % [facility] PLT 103(L) 163 - 369 10*3/uL [facility] MPV 11.3 9.4 - 12.4 fL [facility] RBC 4.92 3.93 - 5.22 10*6/uL [facility] MCV 89 79 - 95 fL [facility] MCH 30.5 25.6 - 32.2 pg [facility] MCHC 34.3 32.2 - 36.5 g/dL [facility] RDW 14.7(H) 11.6 - 14.4 % [facility] Neutrophils % 65.4 36.0 - 66.0 % [facility] Lymphocytes % 25.1 19.0 - 40.0 % [facility] Monocytes % 5.4 4.1 - 12.1 % [facility] Eosinophils % 2.8 0.0 - 3.5 % [facility] Basophils % 1.0 0.0 - 1.0 % [facility] Absolute Neutrophils 4.7 1.4 - 6.6 10*3/uL [facility] Absolute Lymphocytes 1.8 0.8 - 4.0 10*3/uL [facility] Absolute Monocytes 0.4 0.2 - 1.2 10*3/uL [facility] Absolute Eosinophils 0.2 0.0 - 0.4 10*3/uL [facility] Absolute Basophils 0.1 0.0 - 0.1 10*3/uL [facility] 09/24/2024 1:30 PM HEAD OF VISUAL MERCHANDISING us Vivian Pena APRN, RESIDENTIAL AIDE LAB SEND OUTS Fin al Result [facility] [place] [address], * VITAMIN B12 (09/24/2024 1:30 PM HEAD OF VISUAL MERCHANDISING) Vitamin B12 >1,500 180 - 914 pg/mL [facility] Blood 09/24/2024 1:30 PM HEAD OF VISUAL MERCHANDISING Narrative [facility] - 09/25/2024 2:36 PM HEAD OF VISUAL MERCHANDISING Release to patient->Immediate us Vivian Pena UNDERWEAR FINISHER, RESIDENTIAL AIDE CHEMISTRY ORDERABLE S Final Result Performing Organization Address [facility] de Phone Number [facility] [place] [address], * FOLIC ACID (FOLATE) (09/24/2024 1:30 PM HEAD OF VISUAL MERCHANDISING) Folate >20.00 >=5.90 ng/mL [facility] Blood 09/24/2024 1:30 PM HEAD OF VISUAL MERCHANDISING Narrative [facility] - 09/25/2024 2:36 PM HEAD OF VISUAL MERCHANDISING Release to patient->Immediate IS THE PATIENT REQUIRED TO BE FASTING FOR 12 HOURS?->No us Vivian Pena APRN, [place] CHEMISTRY ORDERABLE S Final Result Performing Organization Address [facility] de Phone Number [facility] [place] [address], [place] [phone] * FERRITIN (09/24/2024 1:30 PM HEAD OF VISUAL MERCHANDISING) Ferritin 154 11 - 307 ng/mL [facility] Blood 09/24/2024 1:30 PM HEAD OF VISUAL MERCHANDISING Narrative [facility] - 09/25/2024 2:36 PM HEAD OF VISUAL MERCHANDISING Release to patient->Immediate us Vivian Pena APRN, CNP CHEMISTRY ORDERABLE S Final Result Performing Organization Address [facility] Co de Phone Number [facility] [place] [address], [place] [phone] * (ABNORMAL) CMP (COMPREHENSIVE METABOLIC PANEL) (09/24/2024 1:30 PM HEAD OF VISUAL MERCHANDISING) Glucose 165(H) 70 - 105 mg/dL [facility] Blood Urea Nitrogen 11 7 - 25 mg/dL [facility] Creatinine 1.1 0.6 - 1.2 mg/dL [facility] Sodium 145 136 - 145 mEq/L [facility] Potassium 3.5 3.5 - 5.1 mEq/L [facility] Chloride 108(H) 98 - 107 mEq/L [facility] Bicarbonate 27 21 - 31 mEq/L [facility] Total Bilirubin 1.3(H) 0.3 - 1.0 mg/dL [facility] Alk. Phosphatase 87 34 - 104 U/L [facility] Aspartate Aminotransferase 32 13 - 39 U/L [facility] Alanine Aminotransferase 26 7 - 52 U/L [facility] Total Protein 7.1 6.4 - 8.9 g/dL [facility] Albumin 4.6 3.5 - 5.7 g/dL [facility] Calcium 9.8 8.6 - 10.3 mg/dL [facility] Anion Gap 13.5 7.0 - 15.0 mEq/L [facility] Globulin 2.5 2.0 - 3.5 g/dL [facility] EGFR 63 >60 ml/min/1. 73m2 [facility] Comment: This eGFR is calculated using 2020 CKD-EPI Creatinine equation without race modifier based on the NKF-ASN task force recommendations Blood 09/24/2024 1:30 PM HEAD OF VISUAL MERCHANDISING Narrative [facility] - 09/24/2024 2:15 PM HEAD OF VISUAL MERCHANDISING Release to patient->Immediate IS THE PATIENT REQUIRED TO BE FASTING FOR 8 HOURS?->No us Vivian Pena APRN, RESIDENTIAL AIDE CHEMISTRY ORDERABLE S Final Result [facility] [place] [address], from Last 3 Months Insurance MEDICAID [employer] Care Teams Assistant Professor Of Chemistry Relationship Specialty Start Date End Date Natacha Hoyt MD [address] [place] [id number] PCP - General Family Medicine 08/29/23 Ric Malik MD [address] [place] [phone] Consulting Physician Oncology 05/22/22 Ric Malik MD [address] [place] [phone] Consulting Physician Oncology 08/28/23
--- OUTSIDE RECORDS SUMMARY | 2024-12-07 01:45 | XMS_ITS | Patient Health Record ---
Author Organization Formerly [facility] Address [address] [place] [address] Care Team Providers Care Production Corrugator Name Role Phone Allie Lopez Primary Care Provider Allergies Allergen (clinical drug ingredient) Drug/Non Drug Allergy documented on EMR Reaction Allergy Type Onset Date Status Bucks Oil sunflower oil (uncoded) rash Allergy Active Reason For Referral No Information Medications Medication SIG (Take, Route, Frequency, Duration) Notes Start Date End Date Status Carvedilol HTN Active Atorvastatin Calcium 80 MG 1 tablet Orally Once a day Hyperlipidemia Active Cyclobenzaprine HCl Active Dexlansoprazole 60 MG 1 capsule Orally Once a day GERD Active Jardiance Active Topiramate ER 200 MG 1 capsule Orally Once a day Migraine Active Folic Acid Active Lisinopril 2.5 MG 1 tablet Orally Once a day HTN Active Propranolol HCl 10 MG 1 tablet Orally Once a day Migraine Not-Taking Doxepin HCl 10 MG 1 capsule at bedtime Orally Once a day for 30 day(s) 07/29/2024 Active Vitamin D 25 MCG (1000 UT) 1 tablet Orally Once a day Not-Taking Excedrin Extra Strength migraine PRN Active HumaLOG KwikPen 100 UNIT/ML as directed Subcutaneous 65 units BID Active Cariprazine HCl 6 MG 1 capsule Orally Once a day for 90 days Active DULoxetine HCl 30 MG 1 capsule Orally twice a day for 90 days Active Pantoprazole Sodium Active hydrOXYzine HCl 25 MG 1 tablet as needed Orally three times a day for 90 days Active Mounjaro Active busPIRone HCl 15 MG 1 tablet Orally Twice a day for 90 days Active Doxepin HCl 10 MG 1 capsule at bedtime Orally Once a day for 90 days As needed Active Prazosin HCl 2 MG 1 capsule at bedtime Orally Once a day for 90 days Active Problems Problem Type SNOMED Code ICD Code Onset Dates Problem Status W/U Status Risk Notes Problem Generalized anxiety disorder (36440533) Generalized anxiety disorder (F41.1) Active confirmed Problem Bipolar 1 disorder (984227745) Bipolar 1 disorder (F31.9) Active confirmed Problem Tobacco user (328590358) Nicotine addiction (F17.200) Active confirmed Encounters Encounter Location Date Provider Diagnosis [address] [facility] [place] [address] 12/19/2023 Allie [facility] [address] [place] [address] 01/30/2024 [facility] [address] [place] [address] 03/02/2024 Allie [facility] [address] [place] [address] 04/13/[address] [facility] [place] [address] 05/08/2024 Allie John Bipolar 1 disorder F31.9 [facility] [address] [place] [address] 07/28/2024 Allie John [facility] [address] [place] [address] 10/12/2024 Allie John [facility] [address] [place] [address] 12/31/2023 Allie John Bipolar 1 disorder F31.9 [facility] [address] [place] [address] 01/21/2024 Allie John Bipolar 1 disorder F31.9 [facility] [address] [place] [address] 01/29/2024 Allie John Bipolar 1 disorder F31.9 [facility] [address] [place] [address] 02/25/2024 [place] Bipolar 1 disorder F31.9 [facility] [address] [place] [address] 04/22/2024 Allie [place] Bipolar 1 disorder F31.9 [facility] [address] [place] [address] 06/18/2024 All[place] Bipolar 1 disorder F31.9 [facility] [address] [place] [address] 08/18/2024 All[place] Bipolar 1 disorder F31.9 and Nicotine addiction F17.200 [facility] [address] [place] [address] 09/29/2024 Allie John Bipolar 1 disorder F31.9 and Nicotine addiction F17.200 [place] [place] [address] 12/01/2024 Allie John Bipolar 1 disorder F31.9 Assessments Encounter Date Diagnosis (ICD Code) Assessment Notes Treatment Notes Treatment Clinical Notes Section Notes 08/18/2024 Bipolar 1 disorder (ICD-10 - F31.9) 08/18/2024 Nicotine addiction (ICD-10 - F17.200) 06/18/2024 Bipolar 1 disorder (ICD-10 - F31.9) CancelRx Response got Denied on 2024-09-28 14:02:39 for 'Doxepin HCl 6 MG Tablet'Pharmacy Notes: Patient unknown to the Prescriber. 05/08/2024 Bipolar 1 disorder (ICD-10 - F31.9) 04/22/2024 Bipolar 1 disorder (ICD-10 - F31.9) 02/25/2024 Bipolar 1 disorder (ICD-10 - F31.9) 01/29/2024 Bipolar 1 disorder (ICD-10 - F31.9) increased vraylar today. Discussed bipolar spectrum DX And that irritablity is part of the symptom pattern of her brain disorder. DIscussed & discouraged negative self talk 01/21/2024 Bipolar 1 disorder (ICD-10 - F31.9) Has RF's through 02/29/24. SEnding only prazosin today for nightmares. Hold buspar x 7 days to see if irritablity improves and follow up on 01/28/24. 12/31/2023 Bipolar 1 disorder (ICD-10 - F31.9) 12/01/2024 Bipolar 1 disorder (ICD-10 - F31.9) 09/29/2024 Bipolar 1 disorder (ICD-10 - F31.9) 09/29/2024 Nicotine addiction (ICD-10 - F17.200) 04/22/2024 Other Advised to hold hydroxyzine--do NOT take scheduled. Keep Endocrinology appt and if blood glucose is <7, if she has stopped hydroxyzine and daytime somnulence continues--will pursue sleep study. 06/18/2024 Other hold trazadone and try doxepin for sleep induction 12/01/2024 Other SGA SE- Discussed risks, benefits and side effects. Discussed possible weight gain leading to lipid and glucose changes, involuntary movements, anticholinergic affects and rare CV events, NMS, Seizure. Client may self-administer their own medications. Call for sooner apt if medication has negative effect or client not able to tolerate. Call 911 or go to the closest emergency room right away if you feel like you want to hurt yourself or others. Go to the closest emergency room or call if you have a sudden change in mood or behavior. Confirmed knowledge of [facility] hotline [phone] for clients 20 and under and [place] Crisis line [phone] and awareness of 988. SSRI Discussed possible side effects: GI upset, headache, decreased libido/anorgasmia, weight gain, signs of serotonin syndrome and risk of activation to suicidality Plan Of Treatment No Information Insurance Providers Payer Name Payer Address Payer Phone Subscriber Number Group Number Insured Name Patient Relationship to Insured Coverage Start Date Coverage End Date [facility] Attn Claims Department [address] [place] [address] [phone] [id number] Beulah uFng Self - patient is the insured 3 [facility] Attn Claims Department [address] [place] [address] [phone] [id number] Beulah Fung Self - patient is the insured 3 Medical (General) History Medical History History ICD Code type II diabetes hypertension nephrolithiasis LOVE migraine headache Surgical History Surgery Date(Month/Year) hysterectomy due to fibroids 2018 cholecystectomy carpal/cubital tunnel Hospitalization History Reason Date(Month/Year) suicide attempt by self harm and attempt ed overdose 10/02
--- OUTSIDE RECORDS SUMMARY | 2024-12-07 01:45 | XMS_ITS ---
Author Organization [facility] Address [address], [facility] [address] [place] [address] Phone Care Team Providers Care Cartridge Belt Puncher Name Role Phone Ric Malik MD Unavailable [phone] Ric Malik MD Unavailable [phone] Natacha Hoyt MD Primary Care Provider [facility] Status:Enrolled (Active) Start date:11/11/2024 Enrollment date:11/11/2024 Related social drivers of health:Intimate Partner Violence, Social Connections, Alcohol Use, Tobacco Use, Financial Resource Strain,Stress, Physical Activity, Food Insecurity, Transportation Needs, Housing Stability, Utilities Continued Care and Services Coordination
--- OUTSIDE RECORDS SUMMARY | 2024-12-07 01:45 | XMS_ITS | Patient Health Summary ---
Author Organization [facility] Address [address] [place] [address] Care Team Providers Care Choir Teacher Name Role Phone Sadia Morris Primary Care Provider [phone] Sadia Morris Unavailable Note from [facility],non-owned Affiliates and Associated Physician Practices is amultiple site organization consisting of ambulatory clinics and hospital sitesin [place], [place], [place]. This disclosure is being madepursuant to the Care Everywhere program and may not contain all information available regarding this patient. Last updated 18.[facility] Allergies * Sumatriptan(Myalgias) * Sumatriptan(Headache) * Blain Oil(Rash,Itching,Skin Reactions) -Medium Criticality * Blain Oil(Nausea and/or Vomiting) Medications * Be aware that medications may not be up to date on this document. Alwaysverify current medications with the patient. * cyclobenzaprine (FLEXERIL) 10 MG tablet(Started 08/01/2017) Take 1 (one) tablet by mouth 3 times daily as needed for Muscle Spasms * diphenhydrAMINE (BENADRYL) 25 MG tablet(Started 08/01/2017) Take 1 (one) tablet by mouth every 6 hours as needed for Itching, Allergies or Insomnia * alinbgs-bcuwbwtqeucrk-hskzcctz 250-250-65 MG tablet(Started 08/01/2017) Take 1 (one) tablet by mouth every 6 hours as needed for Headache * cloNIDine (CATAPRES) 0.1 MG tablet(Started 08/01/2017) Take 0.5 (one-half) tablet by mouth BID * LISINOPRIL PO Take 2.5 mg by mouth once daily * fluticasone propionate (FLONASE) 50 MCG/ACT nasal spray [place] 2 (two) sprays into each nostril once daily as needed (allergies) * ondansetron, disintegrating, (ZOFRAN ODT) 4 MG tablet(Started 10/22/2019) Take 1 tablet by mouth every 6 hours as needed 3 refills by 10/21/2020 * DULoxetine (CYMBALTA) 30 MG capsule(Started 02/08/2020) Take 1 (one) capsule by mouth 2 times daily * BD VEO INSULIN SYRINGE U/F 31G X 15/64 1 ML syringes(Started 02/09/2020) USE DIRECTED TWICE DAILY WITH INSULIN * busPIRone (Buspar) 15 MG tablet Take 1 (one) tablet by mouth 2 times daily * insulin NPH (HumuLIN N; NovoLIN N) vial Inject 70 (seventy) Units subcutaneously 3 times daily * sucralfate (Carafate) 1 GM tablet Take 1 (one) tablet by mouth 4 times daily - before meals & nightly * Dexlansoprazole (DEXILANT PO) Take 60 mg by mouth once daily * hydrOXYzine pamoate (Vistaril) 25 MG capsule Take 1 (one) capsule by mouth 4 times daily as needed * Glucagon 3 MG/DOSE POWD [place] 3 mg into the nose as needed (hypoglycemia) * clotrimazole (Lotrimin AF) 1 % cream Apply 1 applicatorful to affected area 2 times daily as needed * albuterol HFA (Proventil; Ventolin; Proair) 108 (90 Base) MCG/ACT inhaler (Started 03/08/2021) Inhale 1 (one) puff by mouth every 6 hours as needed for Wheezing or Shortness of Breath * atorvastatin (Lipitor) 80 MG tablet(Started 08/15/2022) Take 1 (one) tablet by mouth at bedtime * betamethasone valerate (Valisone) 0.1 % cream(Started 01/24/2022) * topiramate (Topamax) 200 MG tablet(Started 07/29/2022) Take 1 (one) tablet by mouth once daily * propranolol (Inderal) 10 MG tablet(Started 07/08/2024) Take 2 (two) tablets by mouth 2 times daily 11 refills by 07/08/2025 * doxepin (SINEquan) 10 MG capsule Take 1 (one) capsule by mouth at bedtime * tirzepatide (Mounjaro) 10 MG/0.5ML injection Inject 10 (ten) mg subcutaneously every 7 days * busPIRone (Buspar) 15 MG tablet(Started 10/10/2024) Take 1 (one) tablet by mouth 2 times daily * hydrOXYzine HCl (Atarax) 50 MG tablet(Started 10/10/2024) Take 1 (one) tablet by mouth 3 times daily as needed for Itching * ondansetron, disintegrating, (Zofran ODT) 4 MG tablet(Started 10/10/2024) Take 1 (one) tablet by mouth every 6 hours as needed for Nausea/Vomiting Allow tablet to dissolve on the tongue * atorvastatin (Lipitor) 80 MG tablet(Started 10/10/2024) Take 1 (one) tablet by mouth at bedtime * prazosin (Minipress) 2 MG capsule(Started 10/10/2024) Take 1 (one) capsule by mouth at bedtime * carvedilol (Coreg) 3.125 MG tablet(Started 10/10/2024) Take 1 (one) tablet by mouth 2 times daily with morning and evening meal * bisacodyl (Dulcolax) 10 MG suppository(Started 10/10/2024) Insert 1 (one) suppository into the rectum once as needed for Constipation (if no BM 24 hours afteroral bisacodyl) * bisacodyl EC (Dulcolax) 5 MG tablet(Started 10/10/2024) Take 1 (one) tablet by mouth once as needed for Constipation (no BM for 72 hours) * polyethylene glycol 3350 (Miralax) 17 g packet(Started 10/10/2024) Take 17 (seventeen) g by mouth once daily as needed for Constipation * pantoprazole EC (Protonix) 40 MG tablet(Started 10/10/2024) Take 1 (one) tablet by mouth once daily * insulin NPH pen(Started 10/10/2024) Inject 30 (thirty) Units subcutaneously 2 times daily, before breakfast and supper * insulin NPH pen(Started 10/11/2024) Inject 20 (twenty) Units subcutaneously 2 times daily, before breakfast and supper * Ferrous Sulfate (IRON PO) Active Problems Problem Noted Date Diagnosed Date Acute gastrointestinal bleeding 10/06/2024 Bipolar disorder 09/12/2024 Iron deficiency anemia due to chronic blood loss 10/09/2023 Secondary esophageal varices without bleeding Gastrointestinal hemorrhage, unspecified gastrointestinal hemorrhage type 03/27/2022 Calculus of kidney 07/17/2021 Liver lesion 06/04/2019 LUQ abdominal pain 12/04/2018 Obesity 11/16/2017 Gastro-esophageal reflux disease without esophag itis 11/16/2017 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 (FLUZONE; FLULAVAL; FLUARIX; AFLURIA QUADRIVALENT; 6MO+), 0.5 ML (IIV4)(Given 09/14/2019) Social History Tobacco Use Types Packs/Day Years [...] and heating? Not hard at all 10/07/2024 [facility] [place] [facility] - Occupational Stress [...] any time in the past 12 m [facility] [place], were you homeless or living in a halfway (including now)? No 10/07/2024 Sex and Gender Information Value Date Recorded Sex Assigned at Female 04/21/2024 2:38 PM CDT Gender Identity Female 04/21/2024 2:38 PM CDT Sexual Orientation Straight 04/21/2024 2: 38 PM CDT Last Filed Vital Signs Vital Sign Reading Time Taken Comments Blood Pressure 118/66 11/17/2024 11:30 AM MACHINE UMBRELLA TIPPER Pulse 74 11/17/2024 11:30 AM MACHINE [employer]MBRELLA TIP[employer] Temperature 36.5 C (97.7 F) 11/17/2024 10:54 AM MACHINE [employer]MBRELLA TIPPER Respiratory Rate 14 11/17/2024 11:30 AM MACHINE [employer]MBRELLA TIPPER Oxygen Saturation 98% 11/17/2024 11:30 AM MACHINE [employer]MBRELLA TIPPER Inhaled Oxygen Concentration - - Weight 87.8 kg (193 lb 9.6 oz) 11/17/2024 9:37 A M MACHINE [employer]RELL[employer]IP[employer] Height 157.5 cm (5' 2 ) 11/17/2024 9:37 AM MACHINE [employer]MBRELLA TIPPER Body Mass Index 35.41 11/17/2024 9:37 AM MACHINE [employer]MBRELLA TIPPER Procedures * EGD(Performed 11/17/2024) * PA ED EGD FLEX TRANSORAL DX(Performed 11/17/2024) Performed for Esophageal varices without bleeding, unspecified esophageal varices type (HCC) * GLUCOSE - POINT OF CARE(Performed 11/17/2024) * PREPARE RBC LEUKOREDUCED UNIT(Performed 10/12/2024) * GLUCOSE - POINT OF CARE(Performed 10/11/2024) * HGB HCT PANEL(Performed 10/11/2024) * GLUCOSE - POINT OF CARE(Performed 10/11/2024) * GLUCOSE - POINT OF CARE(Performed 10/11/2024) * PHOSPHORUS BLOOD(Performed 10/11/2024) * MAGNESIUM BLOOD(Performed 10/11/2024) * CBC W/O DIFFERENTIAL(Performed 10/11/2024) * COMPREHENSIVE METABOLIC PANEL(Performed 10/11/2024) * GLUCOSE - POINT OF CARE(Performed 10/10/2024) * HGB HCT PANEL(Performed 10/10/2024) * GLUCOSE - POINT OF CARE(Performed 10/10/2024) * GLUCOSE - POINT OF CARE(Performed 10/10/2024) * CBC W/O DIFFERENTIAL(Performed 10/10/2024) * PHOSPHORUS BLOOD(Performed 10/10/2024) * MAGNESIUM BLOOD(Performed 10/10/2024) * COMPREHENSIVE METABOLIC PANEL(Performed 10/10/2024) * GLUCOSE - POINT OF CARE(Performed 10/09/2024) * GLUCOSE - POINT OF CARE(Performed 10/09/2024) * HGB HCT PANEL(Performed 10/09/2024) * PA ED EGD FLEX TRANSORAL DX(Performed 10/09/2024) Performed for Hematemesis, unspecified whether nausea present * EGD(Performed 10/09/2024) * GLUCOSE - POINT OF CARE(Performed 10/09/2024) * TRANSFUSE RED BLOOD CELL LEUKOREDUCED UNIT(S)(Performed 10/09/2024) * CT ANGIO ABDOMEN PELVIS(Performed 10/09/2024) Performed for Acute gastrointestinal bleeding, 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), Abdominal pain, right lower quadrant * PREPARE RBC LEUKOREDUCED UNIT(Performed 10/09/2024) * TYPE + SCREEN PANEL(Performed 10/09/2024) * HGB HCT PANEL(Performed 10/09/2024) * GLUCOSE - POINT OF CARE(Performed 10/09/2024) * PHOSPHORUS BLOOD(Performed 10/09/2024) * MAGNESIUM BLOOD(Performed 10/09/2024) * CBC W/O DIFFERENTIAL(Performed 10/09/2024) * COMPREHENSIVE METABOLIC PANEL(Performed 10/09/2024) * GLUCOSE - POINT OF CARE(Performed 10/08/2024) * GLUCOSE - POINT OF CARE(Performed 10/08/2024) * BLOOD TYPE VERIFICATION(Performed 10/08/2024) * BLOOD TYPE ABO+ RH PANEL(Performed 10/08/2024) * PT-INR SL[facility](Performed 10/08/2024) * PHOSPHORUS BLOOD(Performed 10/08/2024) * MAGNESIUM BLOOD(Performed 10/08/2024) * CBC W/O DIFFERENTIAL(Performed 10/08/2024) * COMPREHENSIVE METABOLIC PANEL(Performed 10/08/2024) * HEMOGLOBIN A1C(Performed 10/08/2024) * GLUCOSE - POINT OF CARE(Performed 10/08/2024) * GLUCOSE - POINT OF CARE(Performed 10/08/2024) * GLUCOSE - POINT OF CARE(Performed 10/07/2024) * GLUCOSE - POINT OF CARE(Performed 10/07/2024) * MRI ABDOMEN WWO CONTRAST(Performed 09/29/2024) Performed for 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), Secondary esophageal varices without bleeding (HCC), Liver lesion * MRI ABDOMEN WWO CONTRAST(Performed 09/24/2023) Performed for 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), Liver lesion, Secondary esophageal varices without bleeding (HCC) * CREATININE - POCT INTERFACED(Performed 09/24/2023) * MRI ABDOMEN WWO CONTRAST(Performed 03/15/2023) Performed for 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), Liver lesion * CREATININE - POCT INTERFACED(Performed 03/15/2023) * PATHOLOGY TISSUE(Performed 08/27/2022) Performed for Rectal bleeding * PA COLONOSCOPY, DIAGNOSTIC(Performed 08/27/2022) Performed for Rectal bleeding * ENDOSCOPY, COLON, DIAGNOSTIC(Performed 08/27/2022) * GLUCOSE - POINT OF CARE(Performed 08/27/2022) * MRI ABDOMEN WWO CONTRAST(Performed 06/30/2022) Performed for 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), Liver lesion * CREATININE - POCT INTERFACED(Performed 06/30/2022) * MRI ABDOMEN WWO CONTRAST(Performed 06/26/2020) Performed for Cirrhosis of liver without ascites, unspecified hepatic cirrhosis type (HCC) * CREATININE BLOOD - POCT (IP) SL[facility](Performed 06/26/2020) Performed for Cirrhosis of liver without ascites, unspecified hepatic cirrhosis type (HCC) * CREATININE - POCT INTERFACED(Performed 06/26/2020) * MRI ABDOMEN WWO CONTRAST(Performed 09/14/2019) Performed for Cirrhosis of liver without ascites, unspecified hepatic cirrhosis type (HCC), Liver lesion * CREATININE BLOOD - POCT (IP) [facility](Performed 09/14/2019) Performed for Cirrhosis of liver without ascites, unspecified hepatic cirrhosis type (HCC) * PA ED EGD FLEX TRANSORAL DX(Performed 08/20/2019) Performed for Cirrhosis of liver without ascites, unspecified hepatic cirrhosis type (HCC) * EGD(Performed 08/20/2019) * GLUCOSE - POINT OF CARE(Performed 08/20/2019) * PT-INR(Performed 06/18/2019) Performed for GERD without esophagitis, Cirrhosis of liver without ascites, unspecified hepatic cirrhosis type (HCC) * COMPREHENSIVE METABOLIC PANEL(Performed 06/18/2019) Performed for GERD without esophagitis, Cirrhosis of liver without ascites, unspecified hepatic cirrhosis type (HCC) * CT ABDOMEN MULTI PHASE W CONT(Performed 01/16/2019) Performed for Nonalcoholic steatohepatitis (LOVE), Cirrhosis of liver without ascites, unspecified hepatic cirrhosis type (HCC) * CREATININE BLOOD - POCT (IP) [facility](Performed 01/16/2019) Performed for Cirrhosis of liver without ascites, unspecified hepatic cirrhosis type (HCC) * US ABDOMEN LIMITED(Performed 12/12/2018) Performed for Cirrhosis of liver without ascites, unspecified hepatic cirrhosis type (HCC) * ROCÍO BLOOD SCREEN W/REFLEX TITER(Performed 11/14/2017) * SMOOTH MUSCLE ANTIBODY(Performed 11/14/2017) * MITOCHONDRIAL ANTIBODY SCREEN(Performed 11/14/2017) * HEPATITIS A ANTIBODY(Performed 11/14/2017) * HEPATITIS B CORE ANTIBODY TOTAL(Performed 11/14/2017) * FERRITIN(Performed 11/14/2017) * TRANSFERRIN(Performed 11/14/2017) * IRON BLOOD(Performed 11/14/2017) * HEPATITIS B SURFACE ANTIBODY(Performed 11/14/2017) * HEPATITIS B SURFACE ANTIGEN W RFLX CONFIRMATION(Performed 11/14/2017) * HEPATITIS C ANTIBODY(Performed 11/14/2017) * CERULOPLASMIN(Performed 11/14/2017) * [id number] BLOOD(Performed 11/14/2017) Results * EGD (11/17/2024 10:28 AM MACHINE [employer]MBRELL[employer]IPPER) Report Endoscopy POC Endoscopy Department Report _ [...] entire procedure. Procedure Code(s): --- Professional --- 78518, Esophagogastrodu odenoscopy, flexible, transoral; with band ligation of esophageal/gastr ic varices Diagnosis Code(s): --- Professional --- R12, Heartburn K76.6, Portal hypertension I85.00, Esophageal varices without bleeding K31.89, Other diseases of stomach and duodenum CPT copyright 2021 [employer]. All rights reserved. The codes documented in this report are preliminary and upon machine printer review may be revised to meet current compliance requirements. Chente Ludwig MD 11/17/2024 10:51:14 AM Note Initiated On: 11/17/2024 10:28 AM Number of Addenda: [address] PROVATION 11/17/2024 10:2 8 AM MACHINE [employer] Chente Ludwig MD GI PROCEDURE ORDERAB [facility] [employer] * (ABNORMAL) GLUCOSE - POINT OF CARE (11/17/2024 9:55 AM MACHINE [employer]MBRELLA TIPPER) Only the most recent of19 resultswithin the time period is included. Glucose WB/POC 113(H) 70 - 99 mg/dL 11/17/2024 10:00 AM MACHINE [employer]MBRELLA TIPPER [facility] Specimen Type Venous 11/17/2024 10:00 AM MACHINE [employer]RELL[employer]IPPER [facility] Blood BLOOD SPECIMEN / Unknown 11/17/2024 9:55 AM MACHINE [employer]RELL[employer]IP[employer] 11/17/2024 10:00 AM MACHINE [employer]RELL[employer] Chente Ludwig MD LAB - POINT OF CARE ORDERABLES Performing Organization Address [facility]/ZIP Co de Phone Number [address] [address], [place] [phone] * PREPARE (CROSSMATCH) RBC UNIT(S), 1 Units (10/12/2024 1:17 AM MACHINE [employer]MBRELLA TIPPER) Only the most recent of2 resultswithin the time period is included. Pathologist [facility] Unit Description N/A [facility] BLOOD [facility] Blood Bank BLOOD SPECIMEN / Unknown 10/08/2024 11:38 AM MACHINE [employer]LL[employer] Trudi Sinha MD LAB - BLOOD BANK ORD ERABLES Performing Organization Address [facility] de Phone Number [facility] [address] [place] [id number], [place] [phone] * (ABNORMAL) HGB HCT PANEL (10/11/2024 11:42 AM MACHINE [employer]RELL[employer] TIPPER) Only the most recent of4 resultswithin the time period is included. Pathologist [facility] Hemoglobin 8.0(L) 11.9 - 15.8 g/dL 10/11/2024 12:28 PM MACHINE [employer]PER [facility] Hematocrit 24.1(L) 34.8 - 46.1 % 10/11/2024 12:28 PM [facility] Blood BLOOD SPECIMEN / Unknown Lab Venipuncture / Unknown 10/11/2024 11:42 AM MACHINE [employer]LL[employer]PER 10/11/2024 12:07 PM MACHINE [employer] Trudi Sinha MD LAB - HEMATOLOGY ORD ERABLES Performing Organization Address City/[facility]/ZIP Co de Phone Number [address] [address], [place] [phone] * (ABNORMAL) CBC W/O DIFFERENTIAL (10/11/2024 5:57 AM MACHINE [employer]MBRELLA TIPPER) Only the most recent of4 resultswithin the time period is included. WBC 1.9(L) 4.0 - 10.7 x10E9/L 10/11/2024 7:07 AM [facility] RBC Count 2.67(L) 3.90 - 5.20 x10E12/L 10/11/2024 7:07 AM [facility] Hemoglobin 8.4(L) 11.9 - 15.8 g/dL 10/11/2024 7:07 AM [facility] Hematocrit 24.2(L) 34.8 - 46.1 % 10/11/2024 7:07 AM [facility] MCV 90.6 80.0 - 98.0 fL 10/11/2024 7:07 AM [facility] MCH 31.5 26.7 - 33.6 pg 10/11/2024 7:07 AM [facility] MCHC 34.7 31.7 - 36.3 g/dL 10/11/2024 7:07 AM [facility] RDW-CV 17.0(H) 11.3 - 14.8 % 10/11/2024 7:07 AM [facility] Platelet Count 41(L) 150 - 420 x10E9/L 10/11/2024 7:07 AM [facility] MPV 11.3 7.8 - 11.4 fL 10/11/2024 7:07 AM [facility] Blood BLOOD SPECIMEN / Unknown Venipuncture / Unknown 10/11/2024 5:57 AM MACHINE [employer] 10/11/2024 6:25 AM MACHINE [employer]RELL[employer]PER Ron Dawson MD LAB - HEMATOLOGY ORD ERABLES [facility] [address] [place] [phone], [facility] [phone] * (ABNORMAL) COMPREHENSIVE METABOLIC PANEL (10/11/2024 5:57 AM MACHINE [employer]RELLA [employer]IPPER) Only the most recent of5 resultswithin the time period is included. Pathologist [facility] BUN 5(L) 7 - 26 mg/dL 10/11/2024 6:56 AM [facility] Creatinine 0.81 0.56 - 0.96 mg/dL 10/11/2024 6:56 AM [facility] Sodium 140 136 - 145 mmol/L 10/11/2024 6:56 AM [facility] Potassium 3.6 3.5 - 4.5 mmol/L 10/11/2024 6:56 AM [facility] Chloride 113(H) 98 - 107 mmol/L 10/11/2024 6:56 AM [facility] CO2 21(L) 22 - 29 mmol/L 10/11/2024 6:56 AM [facility] Glucose 172(H) 70 - 99 mg/dL 10/11/2024 6:56 AM [facility] Calcium 8.4 8.4 - 10.2 mg/dL 10/11/2024 6:56 AM [facility] Protein Total 5.4(L) 6.0 - 8.3 g/dL 10/11/2024 6:56 AM [facility] Albumin 3.6 3.4 - 5.0 g/dL 10/11/2024 6:56 AM [facility] Bilirubin Total 0.9 0.2 - 1.2 mg/dL 10/11/2024 6:56 AM [facility] Alkaline Phosphatase 50 40 - 150 U/L 10/11/2024 6:56 AM [facility] ALT 29 5 - 55 U/L 10/11/2024 6:56 AM [facility] AST 49(H) 5 - 34 U/L 10/11/2024 6:56 AM [facility] Anion Gap 6 6 - 16 10/11/2024 6:56 AM [facility] BUN/Creatinine Ratio 6(L) 7 - 23 10/11/2024 6:56 AM [facility] Osmolality Calculated 291 275 - 295 mOsm/kg 10/11/2024 6:56 AM [facility] Albumin/Globulin Ratio 2.0 1.1 - 2.3 10/11/2024 6:56 AM [facility] eGFR by CKD-EPI >90 >=90 mL/min/1.7 3 m2 10/11/2024 6:56 AM [facility] Blood BLOOD SPECIMEN / Unknown Venipuncture / Unknown 10/11/2024 5:57 AM MACHINE [employer] 10/11/2024 6:26 AM MACHINE [employer]RELL[employer]IPPER Ron Dawson MD LAB - CHEMISTRY SUZY HONG [facility] [address] [place] [address], [place] [phone] * (ABNORMAL) PHOSPHORUS BLOOD (10/11/2024 5:57 AM MACHINE [employer]RELL[employer] TIPPER) Only the most recent of4 resultswithin the time period is included. Phosphorus 1.7(L) 2.9 - 5.1 mg/dL 10/11/2024 6:56 AM MACHINE [employer]RELLA TIPPER [facility] Blood BLOOD SPECIMEN / Unknown Venipuncture / Unknown 10/11/2024 5:57 AM MACHINE [employer]MBRELLA TIPPER 10/11/2024 6:26 AM MACHINE [employer]RELLA TIPPER Ron Dawson MD LAB - CHEMISTRY SUZY HONG Performing Organization Address City/[facility]/ZIP Co de Phone Number [facility] [address] [place] [address], [place] [phone] * MAGNESIUM BLOOD (10/11/2024 5:57 AM MACHINE [employer]MBRELLA TIPPER) Only the most recent of4 resultswithin the time period is included. Magnesium 1.8 1.6 - 2.6 mg/dL 10/11/2024 6:56 AM MACHINE [employer]RELLA TIPPER [facility] Blood BLOOD SPECIMEN / Unknown Venipuncture / Unknown 10/11/2024 5:57 AM MACHINE [employer]RELL[employer] TIPPER 10/11/2024 6:26 AM MACHINE [employer]RELL[employer] TIPPER Ron Dawson MD LAB - CHEMISTRY SUZY HONG [facility] [address] [place] [address], [place] [phone] * EGD (10/09/2024 2:22 PM MACHINE [employer]MBRELLA TIPPER) Report Endoscopy POC Endoscopy Department Report _ [...] year old woman with cirrhosis trasferred from OSH with hematemesis. Patient scoped after being on [...] non-leong portions. Procedure Code(s): --- Professional --- 42458, Esophagogastroduo denoscopy, flexible, transoral; with band ligation of esophageal/gastri c varices Diagnosis Code(s): --- Professional --- I85.00, Esophageal varices without bleeding K76.6, Portal hypertension K31.89, Other diseases of stomach and duodenum K92.0, Hematemesis K92.1, Melena (includes Hematochezia) CPT copyright 2021 [employer]. All rights reserved. The codes documented in this report are preliminary and upon machine printer review may be revised to meet current compliance requirements. Dario A Agbim, 10/09/2024 3:10:15 PM Note Initiated On: 10/09/2024 2:22 PM Number of Addenda: [id number] [place] [address] [employer]OVATION 10/09/2024 2:22 PM MACHINE [employer]LL[employer]IPPER Trudi Sinha MD GI PROCEDURE ORDERAB [facility] [employer] * TRANSFUSE RED BLOOD CELL LEUKOREDUCED UNIT(S) (10/09/2024 1:49 PM MACHINE [employer]RELL[employer] TIPPER) Trudi Sinha MD NURSING - BLOOD PROD TRANSFUSION * CT Angio Abdomen Pelvis (10/09/2024 11:08 AM MACHINE UMBRELLA TIPPER) Anatomical Region Laterality Modality Abdomen, Pelvis Computed Tomogra phy 10/09/2024 11:1 6 AM MACHINE [employer]RELL[employer]IPPER Impressions 10/09/2024 12:01 PM MACHINE [employer]LL[employer]IPPER Impression: 1.No active bleeding identified in the [...] > Dictated by Celestine Arciniega MD, MD (cath lab radiology technician). I, Arsh Iqbal MD have personally reviewed and interpreted this examination/study. > Interpreting Provider: Arsh Iqbal MD on 10/09/2024 12:01 PM Narrative 10/09/2024 12:01 PM MACHINE [employer] PROCEDURE: CT ANGIO ABDOMEN PELVIS, DATE/TIME OF EXAM: 10/09/2024 11:08 AM, LOCATION [facility] INDICATION: K92.2: Acute gastrointestinal bleeding K75.81: Liver [...] PELVIS, DATE/TIME OF EXAM: 1:08 AM, LOCATION [facility] INDICATION: K92.2: Acute gastrointestinal bleeding K75.81: Liver [...] cm. > Dictated by Celestine Arciniega MD, (cath lab radiology technician). I, Arsh Iqbal MD have personally reviewed and interpreted this examination/study. > Interpreting Provider: Arsh Iqbal MD on 412:[address] ORDERABLES * TYPE + SCREEN PANEL (10/09/2024 9:49 AM MACHINE [employer]RE[employer] TIPPER) Antibody Screen NEG 10:49 AM MACHINE [employer]RELLA TIPPER [facility] ABO Rh O POS 10/09/2024 10:49 AM MACHINE [employer]RELLA TIPPER [facility] Blood Bank BLOOD SPECIMEN / Unknown Lab Venipuncture / Unknown 10/09/2024 9:49 AM MACHINE [employer]RELLA TIPPER 10/09/2024 10:05 AM MACHINE [employer]RELL[employer] TIPPER Trudi Sinha MD LAB - BLOOD BANK ORD ERABLES [facility] [address] [place] [address], [facility] [phone] * BLOOD TYPE VERIFICATION (10/08/2024 12:24 PM MACHINE [employer]IPPER) ABO Rh O POS 10/08/2024 1:1 0 PM MACHINE [employer] [facility] Blood Bank BLOOD SPECIMEN / Unknown Venipuncture / Unknown 10/08/2024 12:24 PM MACHINE [employer] 10/08/2024 12:32 PM MACHINE [employer] Ron Dawson MD LAB - BLOOD BANK ORD ERABLES [facility] [address] [place] [address], [facility] [phone] * (ABNORMAL) PT-INR [facility] (10/08/2024 11:11 AM MACHINE [employer]IP[employer]) PT 16.5(H) 12.1 - 14.8 Seconds 10/08/2024 11:51 AM MACHINE [employer] [facility] INR 1.4 See Comment 10/08/2024 11:51 AM [facility] Comment:The suggested therap eutic range for standard coumadin (warfarin) therapy is an INR of 2.0-3.0. For high-risk patients (Mechanical Mitral Valve Prosthesis, etc.), the suggested prophylactic therapeutic range is an INR of 2.5-3.5. Blood BLOOD SPECIMEN / Unknown Venipuncture / Unknown 10/08/2024 11:11 AM MACHINE UMBRELLA TIPPER 10/08/2024 11:24 AM MACHINE UMBRELLA TIPPER Ron Dawson MD LAB - COAGULATION OR DERABLES Performing Organization Address City/[facility]/ZIP Co de Phone Number [facility] [address] [place] [phone], [facility] [phone] * BLOOD TYPE ABO+ RH PANEL (10/08/2024 11:11 AM MACHINE UMBRELLA TIPPER) ABO Rh O POS 10/08/2024 12:13 PM MACHINE UMBRELLA TIPPER [facility] Blood BLOOD SPECIMEN / Unknown Venipuncture / Unknown 10/08/2024 11:11 AM MACHINE UMBRELLA TIPPER 10/08/2024 11:38 AM MACHINE UMBRELLA TIPPER Ron Dawson MD LAB - BLOOD BANK ORD ERABLES [facility] [address] [place] [address], [place] [phone] * HEMOGLOBIN A1C (10/08/2024 9:31 AM MACHINE UMBRELLA TIPPER) Hemoglobin A1c 5.3 <=5.6 % 10/08/2024 1:40 PM MACHINE UMBRELLA TIPPER [facility] Estimated Average Glucose 105 mg/dL 10/08/2024 1:40 PM MACHINE UMBRELLA TIPPER [facility] Comment: HbA1c Interpretation: Normal : < 5.7% Pre-diabetes: 5.7-6.4% Diabetes: Equal to or greater than 6.5% Test results diagnostic of diabetes should be repeated for confirmation. Treatment target values recommended by ADA and other clinical organizations should be used to evaluate metabolic control in patients. Reference: [place] Diabetes Association, Standards of Care in Diabetes -2020 In patients 70 years and older consider HbA1c target range of 7.0-7.5% (Reference: Garcia Contreras, et al. JAMDA. 2012) The Sebia assay for the measurement of HbA1c is a National Glycohemoglobin Standardization Program (NGSP) certified method. Blood BLOOD SPECIMEN / Unknown Lab Venipuncture / Unknown 10/08/2024 9:31 AM MACHINE UMBRELLA TIPPER 10/08/2024 9:59 AM MACHINE UMBRELLA TIPPER Ron Dawson MD LAB - CHEMISTRY [facility] Organization Address City/State/ZIP Co de Phone Number [facility] [address] [address], [facility] [phone] * MRI ABDOMEN WWO CONTRAST (09/29/2024 12:28 PM MACHINE UMBRELLA TIPPER) Only the most recent of6 resultswithin the time period is included. Anatomical Region Laterality Modality Abdomen Magnetic Resonan ce 09/29/2024 1:10 PM MACHINE UMBRELLA TIPPER Impressions 09/29/2024 5:24 PM MACHINE UMBRELLA TIPPER Impression: 1.Multiple sub-5 mm arterial enhancing LR 3 observations within the right hemiliver without washout- LR-3. 2.Hepatic cirrhosis with sequelae of portal hypertension including splenomegaly and trace ascites. Report dictated by Treasure Durbin MD, > Dictated by Treasure Durbin MD (Education Research Analyst) 09/29/2024 1:10 PM IMaribel MD have personally reviewed and interpreted this examination/study. > Interpreting Provider: Maribel Connors MD on 09/29/2024 5:24 PM Narrative 09/29/2024 5:24 PM MACHINE UMBRELLA TIPPER PROCEDURE: MRI ABDOMEN WWO CONTRAST, DATE/TIME OF EXAM: 09/29/2024 12:28 PM, LOCATION [facility] INDICATION: K75.81: 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 [...] CONTRAST, DATE/TIME OF EXAM: 2:28 PM, LOCATION [facility] INDICATION: K75.81: 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 [...] MD, > Dictated by Treasure Durbin MD (Education Research Analyst) 09/29/2024 1:10 PM I, Maribel Connors MD have personally reviewed and interpreted this examination/study. > Interpreting Provider: Maribel Connors MD on 09/29/2024 5:24 PM Salomon Sapp MD MR ORDERABLES * (ABNORMAL) CREATININE - POCT INTERFACED (09/24/2023 11:13 AM MACHINE UMBRELLA TIPPER) Only the most recent of4 resultswithin the time period is included. Creatinine POCT 0.93 0.30 - 1.30 mg/dL 09/24/2023 11:15 AM MACHINE UMBRELLA TIPPER [facility] eGFR 77(L) >90 mL/min/1.7 3 m2 09/24/2023 11:15 AM [facility] Blood BLOOD SPECIMEN / Unknown 09/24/2023 11:13 AM MACHINE UMBRELLA TIPPER 09/24/2023 11:15 AM MACHINE UMBRELLA TIPPER Salomon Sapp MD LAB - POINT OF CARE ORDERABLES [facility] [address] [place] [address], [facility] [phone] * PATHOLOGY TISSUE (08/27/2022 12:57 PM MACHINE UMBRELLA TIPPER) Case Report Surgical Pathology Report Case: [id number] Authorizing Provider: Salomon Sapp MD Collected: 08/27/2022 12:57 PM Ordering Location: [facility] Received: 08/27/2022 03:29 PM Pathologist: Gayle Bhatia MD Specimen: Polyp Transverse, Transverse Colon Polyps x 2 08/28/2022 1:44 PM [facility] Final Diagnosis Large intestine, transverse colon polyps x2, biopsy (A): - Tubular adenoma 08/28/2022 1:44 PM [facility] Microscopic Description and Comment Microscopic examination including multiple deeper levels substantiates the final diagnosis. 08/28/2022 1:44 PM [facility] Clinical History The patient is a 41-year-old woman with generalized abdominal pain and hematochezia. Operative procedure/findings: Colonoscopy - two 2-3 mm transverse colon polyps, resected and retrieved. 08/28/2022 1:44 PM [facility] Gross Description The requisition and specimen(s) are identified with the patient's name Beulah Fung. Received in formalin, specimen A , are 2 pink-layne tissues and associated fecal material, 0.6 x 0.2 x 0.1 cm in 0.8 x 0.4 x 0.2 cm, submitted in toto in cassette A1. DF 08/28/2022 1:44 PM [facility] Disclaimer The performance characteristics of all immunohistochemical and indirect immunofluorescence stains (if any) cited in this report were determined by the Histopathology Laboratory of [facility]. Some of these tests were developed by our own laboratory and have not been cleared or approved by the US Food and Drug Administration. The FDA does not require this test to go through premarket FDA review. These tests are used for clinical purposes. They should not be regarded as investigational or for research. This laboratory is certified under the Clinical Laboratory Improvement Amendments (CLIA) as qualified to perform high complexity clinical laboratory testing. This case has been personally reviewed and interpreted by the attending (teaching) pathologist. 08/28/2022 1:44 PM MACHINE UMBRELLA TIPPER [facility] Embedded Images 08/28/2022 1:44 PM MACHINE UMBRELLA TIPPER [facility] Biopsy, NOS POLYP / Unknown 08/27/2022 1 2:57 PM MACHINE UMBRELLA TIPPER 08/27/2022 3:29 PM MACHINE UMBRELLA TIPPER Salomon Sapp MD LAB - PATHOLOGY/CYTO LOGY ORDERABLES [facility] [address] [phone] * ENDOSCOPY, COLON, DIAGNOSTIC (08/27/2022 12:28 PM MACHINE UMBRELLA TIPPER) Report Endoscopy POC Endoscopy Department Report _ [...] entire procedure. Procedure Code(s): --- Professional --- 48353, Colonoscopy, flexible; with removal of tumor(s), polyp(s), or other lesion(s) by snare technique Diagnosis Code(s): --- Professional --- K63.5, Polyp of colon K64.4, Residual hemorrhoidal skin tags R10.84, Generalized abdominal pain K92.1, Melena (includes Hematochezia) CPT copyright 2019 [employer] Medical Association. All rights reserved. The codes documented in this report are preliminary and upon machine printer review may be revised to meet current compliance requirements. Salomon Sapp MD 08/27/2022 1:27:31 PM This report has been signed electronically. Note Initiated On: 08/27/2022 12:28 PM Number of Addenda: [address] [address] [facility] 08/27/2022 12:2 8 PM MACHINE UMBRELLA TIPPER Salomon Sapp MD GI PROCEDURE ORDERAB LES Performing Organization Address City/[facility]/ZIP Co de Phone Number [facility] * CREATININE BLOOD - POCT (IP) [facility] (06/26/2020 10:04 AM CDT) Only the most recent of3 resultswithin the time period is included. Creatinine POCT 0.48 0.3 - 1.3 mg/dL [facility] eGFR POCT 60 60 ml/min [facility] Blood BLOOD SPECIMEN / Unknown 06/26/2020 10:04 AM CDT Cholo Syed Jr., MD LAB - POINT OF CARE ORDERABLES Performing Organization Address City/[facility]/ZIP Co de Phone Number [facility] [address] [place] [phone], [facility] [phone] * EGD (08/20/2019 9:32 AM MACHINE UMBRELLA TIPPER) Report Endoscopy POC Endoscopy Department Report __ _ Patient Name: Beulah Fung Procedure Date: 08/20/2019 9:32 AM Date of : 1980 Classification: Outpatient Gender: Female Ethnicity: Not or Race: White __ _ Providers: Yuri Pearson (Fellow) Referring MD: Procedure: Upper GI endoscopy Indications: To evaluate esophageal varices in patient with suspected portal hypertension Medications: Monitored Anesthesia Care Description of Procedure: Pre-Anesthesia Assessment: - Pre-procedure physical examination revealed no contraindications to sedation. - Airway Examination: Mallampati Class II (the uvula but not tonsillar pillars visualized). - ASA Grade Assessment: II - A patient with mild systemic disease. - After reviewing the risks and benefits, the patient was deemed in satisfactory condition to undergo the procedure. - The anesthesia plan was to use monitored anesthesia care (MAC). - Immediately prior to administration of medications, the patient was re-assessed for adequacy to receive sedatives. After obtaining informed consent, the endoscope was passed under direct vision. Throughout the procedure, the patient's blood pressure, pulse, and oxygen saturations were monitored continuously. The GIF-H190 was introduced through the mouth, and advanced to the second part of duodenum. The upper GI endoscopy was accomplished without difficulty. The patient tolerated the procedure well. Findings: Esophagogastric landmarks were identified: the Z-line was found at 36 cm, the gastroesophageal junction was found at 36 cm and the site of hiatal narrowing was found at 39 cm from the incisors. 3cm hiatal hernia Four columns of non-bleeding large (> 5 mm) varices were found in the lower third of the esophagus. All but one varix flattened with insufflation. No stigmata of recent bleeding were evident and no red magda signs were present. Banding was not performed because no recent labs were available and no prior to variceal bleeding. Mild portal hypertensive gastropathy was found in the entire examined stomach. There is no endoscopic evidence of varices in the cardia (on retroflexion) and in the gastric fundus (on retroflexion). Striped mildly erythematous mucosa without bleeding was found in the gastric antrum. The examined duodenum was normal. Estimated Blood Loss: Estimated blood loss: none. Complications: No immediate complications. Impression: 1) Four Non-bleeding large (> 5 mm) esophageal varices. No banding performed. 2) Esophagogastric landmarks identified. 3cm Hiatal hernia 3) Portal hypertensive gastropathy. 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 5) Normal examined duodenum. Recommendation: - Patient has a contact number available for emergencies. The signs and symptoms of potential delayed complications were discussed with the patient. Return to normal activities tomorrow. Written discharge instructions were provided to the patient. - Resume previous diet. - Continue present medications. - Start nadolol 20mg QD. Need to titrate dose to keep HR in 60s. If cannot tolerate it then can switch back to yearly EGDs for surviellance. - Return to GI clinic as previously scheduled. - The findings and recommendations were discussed with the patient. Attending Participation: I was present and participated during the entire procedure, including non-leong portions. Procedure Code(s): --- Professional --- 27826, Esophagogastroduode noscopy, flexible, transoral; diagnostic, including collection of specimen(s) by brushing or washing, when performed (separate procedure) Diagnosis Code(s): --- Professional --- I85.00, Esophageal varices without bleeding K76.6, Portal hypertension K31.89, Other diseases of stomach and duodenum CPT copyright 2016 [employer] Medical Association. All rights reserved. The codes documented in this report are preliminary and upon machine printer review may be revised to meet current compliance requirements. Dom Rees, 08/20/2019 10:23:10 AM Note Initiated On: 08/20/2019 9:32 AM Number of Addenda: 0 [facility] [address] at [facility], [place] [address] [facility] 08/20/2019 9:32 AM MACHINE UMBRELLA TIPPER Dom Rees MD GI PROCEDURE ORDERAB LES Performing Organization Address City/[facility] Co de Phone Number [facility] * PT-INR (06/18/2019 3:07 PM CDT) INR 1.1 [facility] Comment: Reference Range 0.9-1.1 Moderate-intensity Warfarin Therapy 2.0-3.0 Higher-intensity Warfarin Therapy 3.0-4.0 PT 10.8 9.0 - 11.5 sec [facility] Comment: For more information on this test, go to: http://education.iCetana/faq/JRC722 Test Performed at: [facility] [address] [place] [address] EDER ARIAS DO,MPH Blood BLOOD SPECIMEN / Unknown 06/18/2019 3:07 PM CDT 06/18/2019 3:08 PM CDT Cholo Syed Jr., MD LAB - COAGULATI ON ORDERABLES Performing Organization Address City/[facility] Co de Phone Number [facility] [address] [place] [address] * CT ABDOMEN MULTI PHASE W CONT (01/16/2019 6:37 AM CDT) Anatomical Region Laterality Modality Computed Tomogra phy 01/16/2019 7:09 AM CDT Impressions 01/21/2019 1:09 PM CDT IMPRESSION: 1. An 8 mm hypoattenuating observation in the left hepatic lobe corresponds with the echogenic lesion seen on recent prior ultrasound. This is intermediate probability for hepatocellular carcinoma (LR 3). Given the history of chronic liver disease, accelerated follow-up is advised. 2. Cirrhosis with sequelae of portal hypertension. Report drafted by Tobi Shin M.D. (resident) I, Dr. CHANDA ORONA M.D. have personally reviewed and interpreted this examination/study. This report was electronically signed by CHANDA ORONA M.D. on 01/21/2019 1:09 PM . Narrative 01/21/2019 1:09 PM CDT EXAMINATION: Computed tomography (CT) of the abdomen with contrast HISTORY: hepatic lesion TECHNIQUE: CT of the abdomen was performed following the uneventful administration of 150 mL of Isovue 370 intravenous contrast according to a three-phase liver protocol. COMPARISON: None. FINDINGS: The visible lung bases are clear. The heart size is normal without pericardial effusion. The liver is shrunken and has a nodular surface, consistent with hepatic cirrhosis. No arterially-enhancing hepatic lesion is identified. A 1 cm right hepatic lobe well-defined hypodensity is nonenhancing and likely a cyst (image 87 series 6). There is a hypoattenuating observation within the left hepatic lobe which corresponds with the echogenic lesion seen on prior ultrasound. This measures approximately 9 mm and demonstrates no evidence of arterial phase hyperenhancement. The hepatic arterial anatomy is conventional. The portal vein is nondilated. The portal and main hepatic veins are patent without evidence of thrombi. No ascites or varices is identified. The spleen is not enlarged. Gallstones are seen without gallbladder wall thickening or pericholecystic fluid. The intrahepatic bile ducts are not dilated. The common bile duct is dilated to 7 mm without visible obstruction. The spleen enhances homogenously without focal lesion. The pancreas and adrenal glands are normal. The kidneys appear normal in size and configuration and enhance symmetrically. No urinary calculus or hydronephrosis is seen. No free air is identified in the abdomen. The distal esophagus and stomach appear normal. The visible small bowel and large bowel are normal in caliber without evidence of wall thickening or obstruction. The appendix appears normal without appendicolith or surrounding inflammatory changes (images 197-213 series 6). There is no abdominal lymphadenopathy. The abdominal aorta is normal in course and caliber. Bone windows show no lytic or blastic lesions. The visible osseous structures are intact. Mild multilevel degenerative changes are noted in the spine. Procedure Note Chanda Orona MD - 01/21/2019 EXAMINATION: Computed tomography (CT) of the abdomen with contrast HISTORY: hepatic lesion TECHNIQUE: CT of the abdomen was performed following the uneventful administration of 150 mL of Isovue 370 intravenous contrast according toa three-phase liver protocol. COMPARISON: None. FINDINGS: The visible lung bases are clear. The heart size is normal without pericardial effusion. The liver is shrunken and has a nodular surface, consistent with hepatic cirrhosis. No arterially-enhancing hepatic lesion is identified. A 1 cm right hepatic lobe well-defined hypodensity is nonenhancing and likely a cyst (image 87 series 6). There is a hypoattenuating observation within the left hepatic lobe which corresponds with the echogenic lesion seenon prior ultrasound. This measures approximately 9 mm and demonstrates no evidence of arterial phase hyperenhancement. The hepatic arterial anatomy is conventional. The portal vein is nondilated. The portal and main hepatic veins are patent withoutevidence of thrombi. No ascites or varices is identified. The spleen is not enlarged. Gallstones are seen without gallbladder wall thickening orpericholecystic fluid. The intrahepatic bile ducts are not dilated. The common bile duct is dilated to 7 mm without visible obstruction. The spleen enhances homogenously without focal lesion. The pancreas and adrenal glands are normal. The kidneys appear normal in size and configuration and enhance symmetrically. No urinary calculus or hydronephrosis is seen. No free air is identified in the abdomen. The distal esophagus andstomach appear normal. The visible small bowel and large bowel are normal in caliber without evidence of wall thickening or obstruction. The appendix appears normal without appendicolith or surrounding inflammatory changes (images [id number] series 6). There is no abdominal lymphadenopathy. The abdominal aorta is normal in course and caliber. Bone windows show no lytic or blastic lesions. The visible osseous structures are intact. Mild multilevel degenerative changes are noted in the spine. IMPRESSION: 1. An 8 mm hypoattenuating observation in the left hepatic lobe corresponds with the echogenic lesion seen on recent prior ultrasound. This is intermediate probability for hepatocellular carcinoma (LR 3). Given the history of chronic liver disease, accelerated follow-up is advised. 2. Cirrhosis with sequelae of portal hypertension. Report drafted by Tobi Shin M.D. (resident) I, Dr. CHANDA ORONA M.D. have personally reviewed and interpretedthis examination/study. This report was electronically signed by CHANDA ORONA M.D. on 01/21/2019 1:09 PM . Eder Gomes MD CT ORDERABLES * US ABDOMEN LIMITED (12/12/2018 1:53 PM MACHINE UMBRELLA TIPPER) Anatomical Region Laterality Modality Abdomen Ultrasound 12/12/2018 1:54 PM MACHINE UMBRELLA TIPPER Impressions 12/12/2018 3:56 PM MACHINE UMBRELLA TIPPER IMPRESSION: 1.There is a 1.1 cm echogenic nodule in the left lobe of liver. Given the patient's known cirrhosis, follow-up liver MRI or CT is recommended to exclude malignancy. 2.Marked splenomegaly. 3.Status post cholecystectomy. Dictated by Maryuri Morse MD (residential mental health worker). This report was approved by Maryuri Morse on 12/12/2018 3:15 PM . I, Dr. CHANDA ORONA M.D. have personally reviewed and interpreted this examination/study. This report was electronically signed by CHANDA ORONA M.D. on 12/12/2018 3:56 PM . Narrative 12/12/2018 3:56 PM MACHINE UMBRELLA TIPPER EXAMINATION: Limited abdominal sonogram HISTORY: Cirrhosis, HCC screening COMPARISON: No prior study is available for comparison. FINDINGS: The liver has a coarse echotexture and mildly nodular surface, consistent with cirrhosis. An echogenic lesion is noted in the left lobe of the liver measuring 1.1 cm . There is a hepatic cyst in the right lobe of the liver measuring 0.9 cm in diameter. The right hepatic lobe is suboptimally visualized due to poor acoustic window. No discrete hepatic mass or intrahepatic biliary dilation is seen. The gallbladder is absent. The common bile duct is nondilated, measuring 2 mm. The right kidney measures 11.5 x 4.3 x 4.6 cm. Limited views of the right kidney reveal no evidence of nephrolithiasis or hydronephrosis. The spleen measures 20.0 cm in length. The pancreas is obscured by overlying bowel gas. No ascites is present. Procedure Note Chanda Orona MD - 12/12/2018 EXAMINATION: Limited abdominal sonogram HISTORY: Cirrhosis, HCC screening COMPARISON: No prior study is available for comparison. FINDINGS: The liver has a coarse echotexture and mildly nodular surface,consistent with cirrhosis. An echogenic lesion is noted in the left lobe of theliver measuring 1.1 cm . There is a hepatic cyst in the right lobe of theliver measuring 0.9 cm in diameter. The right hepatic lobe is suboptimally visualized due to poor acoustic window. No discrete hepatic mass or intrahepatic biliary dilation is seen. The gallbladder is absent. The common bile duct is nondilated, measuring2 mm. The right kidney measures 11.5 x 4.3 x 4.6 cm. Limited views of theright kidney reveal no evidence of nephrolithiasis or hydronephrosis. Thespleen measures 20.0 cm in length. The pancreas is obscured by overlying bowel gas. No ascites is present. IMPRESSION: 1.There is a 1.1 cm echogenic nodule in the left lobe of liver. Giventhe patient's known cirrhosis, follow-up liver MRI or CT is recommended to exclude malignancy. 2.Marked splenomegaly. 3.Status post cholecystectomy. Dictated by Maryuri Morse MD (residential mental health worker). This report was approved by Maryuri Morse on 12/12/2018 3:15 PM . I, Dr. CHANDA ORONA M.D. have personally reviewed and interpretedthis examination/study. This report was electronically signed by CHANDA ORONA M.D. on12/12/2018 3:56 PM . Eder Gomes MD US ORDERABLES * MITOCHONDRIAL ANTIBODY SCREEN (11/14/2017 10:15 AM MACHINE UMBRELLA TIPPER) Pathologist [facility] Mitochondrial M2 Antibody 7.1 0.0 - 20.0 Units [facility] Comment: Mitochondrial M2 Antibody Numeric Result Interpretation: <20.1 Units: Negative 20.1 - 24.9 Units: Equivocal >24.9 Units: Positive Blood specimen (specimen) BLOOD SPECIMEN / Unknown 11/14/2017 10:15 AM MACHINE UMBRELLA TIPPER 11/14/2017 11:03 AM MACHINE UMBRELLA TIPPER Verito Mcclendon MD LAB - CHEMISTRY OR DERABLES [facility] [address] [phone] * ROCÍO BLOOD SCREEN W/REFLEX TITER (11/14/2017 10:15 AM MACHINE UMBRELLA TIPPER) ROCÍO IFA Negative [facility] ([facility]) Comment: Negative <1:80 Borderline 1:80 Positive >1:80 Blood specimen (specimen) BLOOD SPECIMEN / Unknown 11/14/2017 10:15 AM MACHINE UMBRELLA TIPPER 11/14/2017 11:03 AM MACHINE UMBRELLA TIPPER Narrative [facility] ([facility]) - 11/15/2017 7:08 PM MACHINE UMBRELLA TIPPER Performed at: - [facility] [address] [place], [place] [id number] Milling Machinist: Nikolai Hoskins PhD, Phone: [phone] Verito Mcclendon MD LAB - CHEMISTRY OR DERABLES [facility] [address] [place] [address] * (ABNORMAL) TRANSFERRIN (11/14/2017 10:15 AM MACHINE UMBRELLA TIPPER) Pathologist [facility] Transferrin 474(H) 174 - 382 mg/dL [facility] Transferrin Saturation % 9(L) 16 - 50 % [facility] Blood specimen (specimen) BLOOD SPECIMEN / Unknown 11/14/2017 10:15 AM MACHINE UMBRELLA TIPPER 11/14/2017 11:03 AM MACHINE UMBRELLA TIPPER Verito Mcclendon MD LAB - CHEMISTRY OR DERABLES Performing Organization Address [facility]/ZIP Co de Phone Number [address] [phone] * CERULOPLASMIN (11/14/2017 10:15 AM MACHINE UMBRELLA TIPPER) [facility]ologist [facility] [facility] Ceruloplasmin 35 20 - 60 mg/dL [facility] Blood specimen (specimen) BLOOD SPECIMEN / Unknown 11/14/2017 10:15 AM MACHINE UMBRELLA TIPPER 11/14/2017 11:03 AM MACHINE UMBRELLA TIPPER Verito Mcclendon MD LAB - CHEMISTRY OR DERABLES Performing Organization Address [facility]/ZIP Co de Phone Number [address] [phone] * (ABNORMAL) [id number] BLOOD (11/14/2017 10:15 AM MACHINE UMBRELLA TIPPER) Qrrgz-9-Gtitqr ypsin 201(H) 90 - 200 mg/dL [facility] Blood specimen (specimen) BLOOD SPECIMEN / Unknown 11/14/2017 10:15 AM MACHINE UMBRELLA TIPPER 11/14/2017 11:03 AM MACHINE UMBRELLA TIPPER Narrative [facility] - 11/14/2017 12:40 PM MACHINE UMBRELLA TIPPER Please use already collected specimen if possible Verito Mcclendon MD LAB - CHEMISTRY OR DERABLES Performing Organization Address City/[facility]/ZIP Co de Phone Number [address] [phone] * (ABNORMAL) SMOOTH MUSCLE ANTIBODY (11/14/2017 10:15 AM MACHINE UMBRELLA TIPPER) F-Actin Antibody IgG 22.2(H) 0.0 - 19.9 Units [facility] Comment: F-Actin Antibody Numeric Result Interpretation: <20.0 Units: Negative 20.0 - 30.0 Units: Weak Positive >30.0 Units: Moderate to Strong Positive Blood specimen (specimen) BLOOD SPECIMEN / Unknown 11/14/2017 10:15 AM MACHINE UMBRELLA TIPPER 11/14/2017 11:03 AM MACHINE UMBRELLA TIPPER Verito Mcclendon MD LAB - SEROLOGY ORD ERABLES Performing Organization Address [facility] Co de Phone Number [address] [phone] * IRON BLOOD (11/14/2017 10:15 AM MACHINE UMBRELLA TIPPER) Iron 54 40 - 150 mcg/dL [facility] Blood specimen (specimen) BLOOD SPECIMEN / Unknown 11/14/2017 10:15 AM MACHINE UMBRELLA TIPPER 11/14/2017 11:03 AM MACHINE UMBRELLA TIPPER Verito Mcclendon MD LAB - CHEMISTRY OR DERABLES Performing Organization Address [facility] Co de Phone Number [address] [phone] * HEPATITIS B SURFACE ANTIBODY (11/14/2017 10:15 AM MACHINE UMBRELLA TIPPER) Hepatitis B Virus Surface Antibody Non-react vishal Non-react vishal [facility] Comment: < 8 mIU/mL Hepatitis B surface Antibody (HBsAb). Nonreactive for HBsAb - individual is considered not immune to Hepatitis B Virus infection. Hepatitis B Surface Antibody Quantitative 0.7 <8.0 mIU/mL [facility] Comment: Hepatitis B Surface Antibody Numeric Result Interpretation: Nonreactive: <8.0 mIU/mL Indeterminate: 8.0 - 12.0 mIU/mL Reactive: >12.0 mIU/mL Blood specimen (specimen) BLOOD SPECIMEN / Unknown 11/14/2017 10:15 AM MACHINE UMBRELLA TIPPER 11/14/2017 11:03 AM MACHINE UMBRELLA TIPPER Verito Mcclendon MD LAB - CHEMISTRY OR DERABLES Performing Organization Address [facility] Co de Phone Number [address] [phone] * HEPATITIS B CORE ANTIBODY (11/14/2017 10:15 AM MACHINE UMBRELLA TIPPER) HBc Antibody Total Non-reacti ve Non-reacti ve [facility] Blood specimen (specimen) BLOOD SPECIMEN / Unknown 11/14/2017 10:15 AM MACHINE UMBRELLA TIPPER 11/14/2017 11:03 AM MACHINE UMBRELLA TIPPER Verito Mcclendon MD LAB - CHEMISTRY OR DERABLES Performing Organization Address [facility] Co de Phone Number [address] [phone] * HEPATITIS B SURFACE ANTIGEN W RFLX CONFIRMATION (11/14/2017 10:15 AM MACHINE UMBRELLA TIPPER) Hepatitis B Virus Surface Antigen Non-reacti ve Non-reacti ve [facility] Blood specimen (specimen) BLOOD SPECIMEN / Unknown 11/14/2017 10:15 AM MACHINE UMBRELLA TIPPER 11/14/2017 11:03 AM MACHINE UMBRELLA TIPPER Verito Mcclendon MD LAB - CHEMISTRY OR DERABLES Performing Organization Address [facility] Co de Phone Number [address] [phone] * HEPATITIS C ANTIBODY (11/14/2017 10:15 AM MACHINE UMBRELLA TIPPER) [facility] Hepatitis C Antibody Non-react vishal Non-reac tive [facility] Comment: Hepatitis C Antibody screen indicates no serologic evidence of past or current infection with Hepatitis C Virus. Patients with unexplained liver disease who are immunocompromised or suspected of having acute Hepatitis C infection may benefit from Nucleic Acid Test (USMAN) for Hepatitis C Viral RNA to confirm Hepatitis C status. Blood specimen (specimen) BLOOD SPECIMEN / Unknown 11/14/2017 10:15 AM MACHINE UMBRELLA TIPPER 11/14/2017 11:03 AM MACHINE UMBRELLA TIPPER Verito Mcclendon MD LAB - CHEMISTRY OR DERABLES Performing Organization Address City/[facility]/ZIP Co de Phone Number [address] [phone] * HEPATITIS A ANTIBODY (11/14/2017 10:15 AM MACHINE UMBRELLA TIPPER) [facility] Hepatitis A Virus Antibody Total Negative Negative [facility] Blood specimen (specimen) 11/14/2017 10:15 AM MACHINE UMBRELLA TIPPER 11/14/2017 11:00 AM MACHINE UMBRELLA TIPPER Narrative [facility] ([facility]) - 11/15/2017 6:16 AM MACHINE UMBRELLA TIPPER Performed at: - [facility] [address] [place], [place] [id number] Milling Machinist: Nikolai Hoskins PhD, Phone: [phone] Verito Mcclendon MD LAB - CHEMISTRY OR DERABLES Performing Organization Address City/[facility]/ZIP Co de Phone Number [facility] ([facility]) [address] [place] [address], [facility] * FERRITIN (11/14/2017 10:15 AM MACHINE UMBRELLA TIPPER) [facility] Ferritin 15 13 - 204 ng/mL [facility] Blood specimen (specimen) BLOOD SPECIMEN / Unknown 11/14/2017 10:15 AM MACHINE UMBRELLA TIPPER 11/14/2017 11:03 AM MACHINE UMBRELLA TIPPER Verito Mcclendon MD LAB - CHEMISTRY OR DERABLES [address] [phone] Care Teams Choir Teacher Relationship Specialty Start Date End Date Sadia Morris Darwin [address] [place] [address] [address] [place] [address] PCP - General 09/13/24 Sadia Morris [address] [place] [address] [address] [place] [address] 09/13/24
--- OUTSIDE RECORDS SUMMARY | 2024-12-07 01:45 | XMS_ITS | Referral Summary ---
Author Organization [facility] Address [address] [place] [address] Care Team Providers Care Drier And Grinder Tender Name Role Phone Sadia Morris NP Primary Care Provider + Encounters Date Type Department Care Team Description 09/30/2024 12:05 PM METEOROLOGY TEACHER - 09/30/2024 11:59 PM METEOROLOGY TEACHER Hospital Encounter [facility] Cardiology [address] [place] [address] Syncope and collapse; Orthostatic hypotension Discharge Disposition: Discharge to home or self care 09/11/2024 10:24 PM METEOROLOGY TEACHER - 09/13/2024 5:49 PM METEOROLOGY TEACHER Hospital Encounter 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) [K75.81, K74.60]; Hx of esophageal varices [Z87.19] Discharge Disposition: Discharge to home or self care from Last 3 Months Allergies Active Allergy Reactions Criticality Noted Date Comments Sumatriptan Muscle pain,Other (See comments) Medium 06 /11/2022 Mcmullen Oil Hives Medium 02/13/2022 Medications cyclobenzaprine (FLEXERIL) [...] LOVE (CMS/HCC) 08/16 GERD (gastroesophageal reflux disease) 4 Hyperlipidemia associated with type 2 diabetes m ellitus 09/12/2024 Hypoglycemia associated with type 2 diabetes mellitus (CMS/HCC) 09/12/2024 Orthostatic hypotension 09/12/2024 Thrombocytopenia 09/12/2024 Hx of esophageal varices 09/12/2024 Social History Tobacco Use Types Packs/Day Years [...] on file Legal Sex Female 11:18 PM METEOROLOGY TEACHER Gender Identity Not on file Sexual Orientation Not on file Last Filed Vital Signs Vital Sign Reading Time Taken Comments Blood Pressure 122/71 09/13/2024 3:03 PM METEOROLOGY TEACHER Pulse 64 09/13/2024 3:03 PM METEOROLOGY TEACHER Temperature 36.2 C (97.2 F) 09/13/2024 3:03 PM METEOROLOGY TEACHER Respiratory Rate 16 09/13/2024 3:03 PM METEOROLOGY TEACHER Oxygen Saturation 97% 09/13/2024 3:03 PM METEOROLOGY TEACHER Inhaled Oxygen Concentration - - Weight 90.3 kg (199 lb) 09/12/2024 2:18 AM METEOROLOGY TEACHER Height 157.5 cm (5' 2 ) 09/12/2024 2:18 AM METEOROLOGY TEACHER Body Mass Index 36.4 09/12/2024 2:18 AM METEOROLOGY TEACHER Plan of Treatment Not on file Procedures Procedure Name Priority Date/Time Associated Diagnosis Comments MCT - MOBILE CARDIAC TELEMETRY EVENT MONITOR Routine 09/30/2024 12:05 PM METEOROLOGY TEACHER Syncope and collapse Orthostatic hypotension POCT GLUCOSE DEVICE Routine 09/13/2024 4 :43 PM METEOROLOGY TEACHER POCT GLUCOSE DEVICE Routine 09/13/2024 1 1:53 AM METEOROLOGY TEACHER POCT GLUCOSE DEVICE Routine 09/13/2024 7 :46 AM METEOROLOGY TEACHER POCT GLUCOSE DEVICE Routine 09/13/2024 2 :24 AM METEOROLOGY TEACHER POCT GLUCOSE DEVICE Routine 09/12/2024 9 :03 PM METEOROLOGY TEACHER ECG 12-LEAD Routine 09/12/2024 7:03 PM METEOROLOGY TEACHER POCT GLUCOSE DEVICE Routine 09/12/2024 4 :44 PM METEOROLOGY TEACHER POCT GLUCOSE DEVICE Routine 09/12/2024 1 :47 PM METEOROLOGY TEACHER POCT GLUCOSE DEVICE Routine 09/12/2024 1 1:32 AM METEOROLOGY TEACHER TRANSTHORACIC ECHO (TTE) COMPLETE W DOPPLER/CF WO CONTRAST Routine 09/12/2024 11:07 AM METEOROLOGY TEACHER POCT GLUCOSE DEVICE Routine 09/12/2024 8 :30 AM METEOROLOGY TEACHER POCT GLUCOSE DEVICE Routine 09/12/2024 5 :28 AM METEOROLOGY TEACHER HEMOGLOBIN A1C Routine 09/12/2024 4:58 AM METEOROLOGY TEACHER TROPONIN T HIGH-SENSITIVITY 6-HOUR Timed 09/12/2024 4:58 AM METEOROLOGY TEACHER POCT GLUCOSE DEVICE Routine 09/12/2024 4 :40 AM METEOROLOGY TEACHER TROPONIN T HIGH-SENSITIVITY 4-HR Timed 09/12/2024 4:12 AM METEOROLOGY TEACHER POCT GLUCOSE DEVICE Routine 09/12/2024 4 :11 AM METEOROLOGY TEACHER POCT GLUCOSE DEVICE Routine 09/12/2024 3 :49 AM METEOROLOGY TEACHER DRUGS OF ABUSE SCREEN, URINE WITH REFLEX CONFIRMATION Routine 09/12/2024 3:42 AM METEOROLOGY TEACHER INFLUENZA A/B, RSV, AND COVID-19 PCR Routine 09/12/2024 3:42 AM METEOROLOGY TEACHER URINALYSIS AND REFLEX TO MICROSCOPIC AND CULTURE STAT 09/12/2024 3:42 AM METEOROLOGY TEACHER POCT GLUCOSE DEVICE Routine 09/12/2024 3 :29 AM METEOROLOGY TEACHER POCT GLUCOSE DEVICE Routine 09/12/2024 3 :05 AM METEOROLOGY TEACHER POCT GLUCOSE DEVICE Routine 09/12/2024 2 :33 AM METEOROLOGY TEACHER AMMONIA Routine 09/12/2024 1:38 AM METEOROLOGY TEACHER TROPONIN T HIGH-SENSITIVITY 2-HOUR Timed 09/12/2024 1:[address] CHEST PE W CONTRAST ED 12:29 AM METEOROLOGY TEACHER XR CHEST 1 VIEW ED 09/11/2024 11:41 PM METEOROLOGY TEACHER EGFR STAT 09/11/2024 11:22 PM METEOROLOGY TEACHER IMMATURE PLATELET FRACTION STAT 09/11/2024 11:22 PM METEOROLOGY TEACHER DIFFERENTIAL AUTO STAT 09/11/2024 11: 22 PM METEOROLOGY TEACHER D-DIMER, QUANTITATIVE STAT 09/11/2024 11:22 PM METEOROLOGY TEACHER PRO B-TYPE NATRIURETIC PEPTIDE STAT 09/11/2024 11:22 PM METEOROLOGY TEACHER COMPREHENSIVE METABOLIC PANEL STAT 09/11/2024 11:22 PM METEOROLOGY TEACHER CBC WITH AUTO DIFFERENTIAL STAT 09/11/2024 11:22 PM METEOROLOGY TEACHER TROPONIN T HIGH-SENSITIVITY SERIES (BASELINE, 2HR, 4HR, 6HR) Add-On 09/11/2024 11:15 PM METEOROLOGY TEACHER from Last 3 Months Results * MCT Mobile Cardiac Telemetry Event Monitor (09/30/2024 12:05 PM METEOROLOGY TEACHER) LV EF % CONS SCIMAGE Anatomical Region Laterality Modality Electrocardiogra phy 10/29/2024 11:5 9 PM METEOROLOGY TEACHER Narrative 11/02/2024 2:33 PM METEOROLOGY TEACHER [address] [place] [address] EVENT MONITOR Patient Name: BEULAH GARCIA M [...] By: Dr Emmanuel Swartz 11/02/2024 2:32:19 PM METEOROLOGY TEACHER Procedure Note Emmanuel Swartz MD - 11/02/[address] [place] [address] EVENT MONITOR Patient Name: BEULAH GARCIA M [...] By: Dr Emmanuel Swartz 11/02/2024 2:32:19 PM METEOROLOGY TEACHER Bee Lester Jr., MD CV CARDIAC SERVICES PROCEDURES Final Result * POCT glucose (09/13/2024 4:43 PM METEOROLOGY TEACHER) Glucose, POC 126 70 - 199 mg/dL Blood 09/13/2024 4:43 PM METEOROLOGY TEACHER 09/13/2024 4:43 PM METEOROLOGY TEACHER us Bee Lester Jr., MD LAB POCT ORDERABLES - DEVICE Final Result JUDITH [facility] SPE[facility]TER) 1 [facility] [place] [address] * POCT glucose (09/13/2024 11:53 AM METEOROLOGY TEACHER) Glucose, POC 160 70 - 199 mg/dL Blood 09/13/2024 11:5 3 AM METEOROLOGY TEACHER 09/13/2024 11:53 AM METEOROLOGY TEACHER us Bee Lester Jr., MD LAB POCT ORDERABLES - DEVICE Final Result JUDITH THOMPSON (SPELTER) 1 [facility] [place] [address] * POCT glucose (09/13/2024 7:46 AM METEOROLOGY TEACHER) Glucose, POC 112 70 - 199 mg/dL Blood 09/13/2024 7:46 AM METEOROLOGY TEACHER 09/13/2024 7:46 AM METEOROLOGY TEACHER us Bee Lester Jr., MD LAB POCT ORDERABLES - DEVICE Final Result Performing Organization Address [facility]/ZIP Co de Phone Number JUDITH THOMPSON (SPELTER) 1 [facility] [place] [address] * POCT glucose (09/13/2024 2:24 AM METEOROLOGY TEACHER) Glucose, POC 106 70 - 199 mg/dL Blood 09/13/2024 2:24 AM METEOROLOGY TEACHER 09/13/2024 2:24 AM METEOROLOGY TEACHER us Bee Lester Jr., MD LAB POCT ORDERABLES - DEVICE Final Result Performing Organization Address City/[facility]/ZIP Co de Phone Number JUDITH THOMPSON (SPELTER) 1 [facility] [place] [address] * POCT glucose (09/12/2024 9:03 PM METEOROLOGY TEACHER) Glucose, POC 138 70 - 199 mg/dL Blood 09/12/2024 9:03 PM METEOROLOGY TEACHER 09/12/2024 9:03 PM METEOROLOGY TEACHER us Bee Lester Jr., MD LAB POCT ORDERABLES - DEVICE Final Result JUDITH THOMPSON (SPELTER) 1 [facility] [place] [address] * ECG 12 lead (09/12/2024 7:03 PM METEOROLOGY TEACHER) 09/12/2024 7:03 PM METEOROLOGY TEACHER Narrative [facility] - 09/14/2024 7:03 AM METEOROLOGY TEACHER Vent Rate: 71 bpm RR Interval: 837 msec NE Interval: 143 msec QRS Duration: 90 msec QT Interval: 412 msec QTC Interval: 435 msec P-R-T [place]: 38 - 8 - 9 degrees IMPRESSION: SINUS RHYTHM NORMAL ECG Electronically Signed By: Jamshid Terry MD us Kermit Landaverde MD ECG ORDERABLES Final Result Performing Organization Address City/[facility]/ZIP Co de Phone Number [facility] * POCT glucose (09/12/2024 4:44 PM METEOROLOGY TEACHER) Glucose, POC 118 70 - 199 mg/dL Blood 09/12/2024 4:44 PM METEOROLOGY TEACHER 09/12/2024 4:44 PM METEOROLOGY TEACHER us Bee Lester Jr., MD LAB POCT ORDERABLES - DEVICE Final Result Performing Organization Address City/[facility] Co de Phone Number JUDITH THOMPSON (SPELTER) 1 [facility] [place] [address] * POCT glucose (09/12/2024 1:47 PM METEOROLOGY TEACHER) Glucose, POC 157 70 - 199 mg/dL Blood 09/12/2024 1:47 PM METEOROLOGY TEACHER 09/12/2024 1:47 PM METEOROLOGY TEACHER us Bee Lester Jr., MD LAB POCT ORDERABLES - DEVICE Final Result Performing Organization Address [facility] Co de Phone Number JUDITH THOMPSON (SPELTER) 1 [facility] [place] [address] * POCT glucose (09/12/2024 11:32 AM METEOROLOGY TEACHER) Glucose, POC 138 70 - 199 mg/dL Blood 09/12/2024 11:3 2 AM METEOROLOGY TEACHER 09/12/2024 11:32 AM METEOROLOGY TEACHER us Bee Lester Jr., MD LAB POCT ORDERABLES - DEVICE Final Result JUDITH THOMPSON (SPELTER) [address] [place] [address] Department of Laboratories [place], [place] [id number] * TRANSTHORACIC ECHO (TTE) COMPLETE W DOPPLER/CF WO CONTRAST (09/12/2024 11:07 AM METEOROLOGY TEACHER) Anatomical Region Laterality Modality Ultrasound 09/12/2024 9:44 AM METEOROLOGY TEACHER Narrative 09/12/2024 11:24 AM METEOROLOGY TEACHER [address] [address] Echocardiogram Report Patient Name: BEULAH GARCIA : 1980 Study Date: 2024-09-12 9:44:39 AM Gender: F Tech: LOW PRESSURE KETTLE OPERATOR Location: [id number] Ref Provider: DIONICIO WORKMAN Height(Cm): 157 BSA: [...] %. Electronically Signed By: Kermit Landaverde MD, FACC 2024-09-12 11:23:29 METEOROLOGY TEACHER Procedure Note Kermit Landaverde MD - 09/12/[address] [place] [address] Echocardiogram Report Patient Name: BEULAH GARCIA : 1980 Study Date: 2024-09-12 9:44:39 AM Gender: F Tech: LOW PRESSURE KETTLE OPERATOR Location: [id number] Ref Provider: DIONICIO WORKMAN Height(Cm): 157 BSA: [...] %. Electronically Signed By: Kermit Landaverde MD, [facility] 2024-09-12 11:23:29 METEOROLOGY TEACHER us Dionicio Workman MD CV ECHO PROCEDURES Final Result * POCT glucose (09/12/2024 8:30 AM METEOROLOGY TEACHER) Glucose, POC 87 70 - 199 mg/dL Blood 09/12/2024 8:30 AM METEOROLOGY TEACHER 09/12/2024 8:30 AM METEOROLOGY TEACHER us Bee Lester Jr., MD LAB POCT ORDERABLES - DEVICE Final Result JUDITH THOMPSON (SPELTER) [address] [place] [address] * POCT glucose (09/12/2024 5:28 AM METEOROLOGY TEACHER) [facility] Glucose, POC 183 70 - 199 mg/dL Blood 09/12/2024 5:28 AM METEOROLOGY TEACHER 09/12/2024 5:28 AM METEOROLOGY TEACHER Dionicio Workman MD LAB POCT ORDERABLES - DEVICE Fi nal Result Performing Organization Address [facility] Co de Phone Number JUDITH THOMPSON (SPELTER) [address] [place] [address] * Troponin T high-sensitivity 6-hour (09/12/2024 4:58 AM METEOROLOGY TEACHER) [facility] Trop T hs <6 <=14 ng/L Comment: Interpretive Data For further hscTnT resources including the diagnostic algorithm and an aid in interpretation, copy and paste this link: https://nrl.testcatalog.org/show/hsTrop Current Interpretive Data last revised 2020. Trop T hs delta -2 ng/L [facility] ([facility]) Trop T hs interp Insignificant [facility] ([facility]) Blood 09/12/2024 4:58 AM METEOROLOGY TEACHER 09/12/2024 5:08 AM METEOROLOGY TEACHER Valdez Lee MD LAB BLOOD ORDERABLES Final R esult Performing Organization Address City/[facility]/ZIP Co de Phone Number JUDITH THOMPSON (SPE[place]) 1 [facility] [place] [address] * Hemoglobin A1c (09/12/2024 4:58 AM METEOROLOGY TEACHER) [facility] Hgb A1C 5.4 4.0 - 5.6 % Estimated Average Glucose 108 mg/dL JUDITH THOMPSON (SPELTER) Comment: The ADA recommends reporting an estimated Average Glucose (eAG) with all Hemoglobin A1c results using the equation derived from a study of 507 normal and diabetic adults. Minority populations were underrepresented and children were not included. (Diabetes Care 31:1690-0867, 2008). The eAG is not equivalent to a fasting glucose. Blood 09/12/2024 4:58 AM METEOROLOGY TEACHER 09/12/2024 5:07 AM METEOROLOGY TEACHER Dionicio Workman MD LAB BLOOD ORDERABLES Final Resu lt Performing Organization Address City/[facility]/ZIP Co de Phone Number JUDITH THOMPSON (SPELTER) 1 [facility] [place] [address] * (ABNORMAL) POCT glucose (09/12/2024 4:40 AM METEOROLOGY TEACHER) Glucose, POC 234(H) 70 - 199 mg/dL Blood 09/12/2024 4:40 AM METEOROLOGY TEACHER 09/12/2024 4:40 AM METEOROLOGY TEACHER Dionicio Workman MD LAB POCT ORDERABLES - DEVICE Fi nal Result Performing Organization Address [facility] Co de Phone Number JUDITH THOMPSON (SPELTER) [address] [place] [address] [place] [address] * Troponin T high-sensitivity 4-hour (09/12/2024 4:12 AM METEOROLOGY TEACHER) Trop T hs 6 <=14 ng/L Comment: Interpretive Data For further hscTnT resources including the diagnostic algorithm and an aid in interpretation, copy and paste this link: https://nrl.testcatalog.org/show/hsTrop Current Interpretive Data last revised 2020. Trop T hs delta -2 ng/L [facility] ([facility]) Trop T hs interp Insignificant [facility] ([place]) Blood 09/12/2024 4:12 AM METEOROLOGY TEACHER 09/12/2024 5:08 AM METEOROLOGY TEACHER Valdez Lee MD LAB BLOOD ORDERABLES Final R esult JUDITH THOMPSON (SPELTER) 1 [facility] [place] [address] * (ABNORMAL) POCT glucose (09/12/2024 4:11 AM METEOROLOGY TEACHER) [facility] Glucose, POC 67(L) 70 - 199 mg/dL Blood 09/12/2024 4:11 AM METEOROLOGY TEACHER 09/12/2024 4:11 AM METEOROLOGY TEACHER Dionicio Workman MD LAB POCT ORDERABLES - DEVICE Fi nal Result Performing Organization Address City/[facility]/ZIP Co de Phone Number JUDITH THOMPSON (SPELTER) 1 [facility] [place] [address] * POCT glucose (09/12/2024 3:49 AM METEOROLOGY TEACHER) [facility] Glucose, POC 71 70 - 199 mg/dL Blood 09/12/2024 3:49 AM METEOROLOGY TEACHER 09/12/2024 3:49 AM METEOROLOGY TEACHER Dionicio Workman MD LAB POCT ORDERABLES - DEVICE Fi nal Result Performing Organization Address City/[facility]/ZIP Co de Phone Number JUDITH GrovesSPELTER) 1 [facility] Department [place] [address] * Influenza A/B, RSV, and COVID-19 PCR Nasopharyngeal (09/12/2024 3:42 AM METEOROLOGY TEACHER) [facility] COVID-19 RNA Negative Negative Influenza A RNA Negative Negative [facility] (SPELTER) Influenza B RNA Negative Negative [facility] (SPELTER) RSV RNA Negative Negative [facility] (SPELTER) Comment: Interpretive data: Testing performed by [facility]. This test is performed using the [employer] Xpert Xpress CoV-2/Flu/RSV plus assay. This is a multiplex, real- time reverse transcriptase PCR assay intended for the qualitative detection of nucleic acid from SARS-CoV-2, influenza A, influenza B, and respiratory syncytial virus. This assay has been cleared by the [place] Food and Drug administration. The performance characteristics have been verified by the [facility]. Results must be considered in the clinical context, and a negative result does not rule out infection. Interpretive Data last revised 2023 Nasopharyngeal 09/12/2024 3: 42 AM METEOROLOGY TEACHER 09/12/2024 3:47 AM METEOROLOGY TEACHER Narrative JUDITH THOMPSON ([place]) - 09/12/2024 4:27 AM METEOROLOGY TEACHER Is the Patient experiencing symptoms consistent with COVID?->Unknown Dionicio Workman MD LAB MICROBIOLOGY - GENERAL SUZY HONG Final Result JUDITH DONNA (SPELTER) 1 [facility] Department [place] [address] * Drugs of Abuse Screen, Urine with Reflex Confirmation (09/12/2024 3:42 AM METEOROLOGY TEACHER) Pathologist [facility] Amphetamine, ur Not Detected CutOff 500ng/mL Comment: Interpretive Data - Amphetamines: Samples containing greater than 500 ng/mL d-methamphetamine or other cross-reacting amphetamine compounds are reported as positive. Amphetamine immunoassays are subject to significant false positive rates due to cross-reactivity of non-amphetamine drugs. Confirmatory testing required for definitive results. Current Interpretive Data was last reviewed 2023. Barbiturates, ur Not Detected CutOff 200ng/mL [facility] ([facility]) Comment: Interpretive Data - Barbiturates: Samples containing greater than 200 ng/mL secobarbital or other cross-reacting barbiturate compounds are reported as positive. False positive and false negative results are possible. Confirmatory testing required for definitive results. Current Interpretive Data was last reviewed 2023. Benzodiazepines, ur Not Detected CutOff 100ng/mL [facility] ([facility]) Comment: Interpretive Data - Benzodiazepines: Samples containing greater than 100 ng/mL nordiazepam or other cross-reacting compounds are reported as positive. False positive and false negative results are possible. Confirmatory testing required for definitive results. Current Interpretive Data was last reviewed 2023. Cannabinoids, ur Not Detected CutOff 50 ng/mL [facility] ([facility]) Comment: Interpretive Data - Cannabinoids: Samples containing [...] 2023. Methadone, ur Not Detected CutOff 300ng/mL [facility] ([place]) Comment: Interpretive Data - Methadone: Samples containing greater than 300 ng/mL d,l-methadone or other cross-reacting compounds are reported as positive. False positive and false negative results are possible. Confirmatory testing required for definitive results. Current Interpretive Data was last reviewed 2023. Opiates, ur Not Detected CutOff 300ng/mL [facility] ([facility]) Comment: Interpretive Data - Opiates: Samples containing greater than 300 ng/mL morphine or other cross-reacting compounds are reported as positive. False positive and false negative results are possible. Confirmatory testing required for definitive results. Current Interpretive Data was last reviewed 2023. Oxycodone, ur Not Detected CutOff 100ng/mL [facility] ([facility]) Comment: Interpretive Data - Oxycodone: Samples containing greater than 100 ng/mL oxycodone or other cross-reacting compounds are reported as positive. False positive and false negative results are possible. Confirmatory testing required for definitive results. Current Interpretive Data was last reviewed 2023. Phencyclidine, ur Not Detected CutOff 25 ng/mL [facility] ([place]) Comment: Interpretive Data - Phencyclidine: Samples containing [...] revised on 2017. Urine 09/12/2024 3:42 AM METEOROLOGY TEACHER 09/12/2024 3:47 AM METEOROLOGY TEACHER Narrative JUDITH THOMPSON ([place]) - 09/12/2024 4:18 AM METEOROLOGY TEACHER Drug of Abuse screening is performed by immunoassay for medical purposes only. This is not to be used for Pain Management purposes. If Detected, confirmation testing will be performed for Amphetamines, Cocaine, Fentanyl, Methadone, Opiates, Oxycodone or Phencyclidine. Dionicio Workman MD LAB URINE ORDERABLES Final Resu lt JUDITH THOMPSON ([place]) 1 [facility] Department [place] [address] * (ABNORMAL) Urinalysis reflex to microscopic and culture Urine (09/12/2024 3:42 AM METEOROLOGY TEACHER) Color, ur Yellow Yellow Clarity, ur Clear Clear CERNER Ben ([place]) Specific gravity, ur 1.010 1.003 - 1.030 JUDITH THOMPSON ([place]) pH, urine 6.5 JUDITH THOMPSON ([place]) Comment: Interpretive Data U rine pH is affected by diet, medications, systemic acid-base disturbances, and renal tubular function. pH may affect urinary stone formation. For example, urine pH below 6.0 may help reduce the tendency for calcium phosphate stones and pH greater than 6.0 may reduce the tendency for uric acid stone formation. Source: [facility] [employer] Current Interpretive Data was last revised on [...] [facility] ([place]) Urine 09/12/2024 3:42 AM METEOROLOGY TEACHER 09/12/2024 3:47 AM METEOROLOGY TEACHER Dionicio Workman MD LAB MICROBIOLOGY - GENERAL ORDE [facility] Final Result Performing Organization Address City/[facility]/ZIP Co de Phone Number JUDITH THOMPSON (SPELTER) 1 [facility] [place] [address] * POCT glucose (09/12/2024 3:29 AM METEOROLOGY TEACHER) Glucose, POC 70 70 - 199 mg/dL Blood 09/12/2024 3:29 AM METEOROLOGY TEACHER 09/12/2024 3:29 AM METEOROLOGY TEACHER Dionicio Workman MD LAB POCT ORDERABLES - DEVICE Fi nal Result Performing Organization Address [facility] Co de Phone Number JUDITH THOMPSON (SPELTER) 1 [facility] [place] [address] * (ABNORMAL) POCT glucose (09/12/2024 3:05 AM METEOROLOGY TEACHER) Glucose, POC 64(L) 70 - 199 mg/dL Blood 09/12/2024 3:05 AM METEOROLOGY TEACHER 09/12/2024 3:05 AM METEOROLOGY TEACHER us Dionicio Workman MD LAB POCT ORDERABLES - DEVICE Fi nal Result Performing Organization Address City/[facility]/ZIP Co de Phone Number JUDITH THOMPSON (SPELTER) 1 [facility] [place] [address] * (ABNORMAL) POCT glucose (09/12/2024 2:33 AM METEOROLOGY TEACHER) Glucose, POC 61(L) 70 - 199 mg/dL Blood 09/12/2024 2:33 AM METEOROLOGY TEACHER 09/12/2024 2:33 AM METEOROLOGY TEACHER Dionicio Workman MD LAB POCT ORDERABLES - DEVICE Fi nal Result Performing Organization Address [facility] Co de Phone Number JUDITH THOMPSON ([place]) 1 [facility] [place] [address] * Troponin T high-sensitivity 2-hour (09/12/2024 1:38 AM METEOROLOGY TEACHER) Trop T hs 6 <=14 ng/L Comment: Interpretive Data For further hscTnT resources including the diagnostic algorithm and an aid in interpretation, copy and paste this link: https://nrl.testcatalog.org/show/hsTrop Current Interpretive Data last revised 2020. Trop T hs delta -2 ng/L [facility] ([facility]) Trop T hs interp Insignificant [facility] ([place]) Blood 09/12/2024 1:38 AM METEOROLOGY TEACHER 09/12/2024 1:41 AM METEOROLOGY TEACHER Valdez Lee MD LAB BLOOD ORDERABLES Final R esult Performing Organization Address [facility] Co de Phone Number JUDITH THOMPSON ([place]) 1 [facility] [place] [address] * Ammonia (09/12/2024 1:38 AM METEOROLOGY TEACHER) Ammonia 42 <=50 mcmol/L Blood 09/12/2024 1:38 AM METEOROLOGY TEACHER 09/12/2024 1:41 AM METEOROLOGY TEACHER Valdez Lee MD LAB BLOOD ORDERABLES Final R esult Performing Organization Address City/[facility]/ZIP Co de Phone Number JUDITH THOMPSON ([place]) 1 [facility] [place] [address] * CT Chest PE (CTA) W Contrast (09/12/2024 12:29 AM METEOROLOGY TEACHER) Anatomical Region Laterality Modality Body N/A Computed Tomogra phy 09/12/2024 12:3 1 AM METEOROLOGY TEACHER Narrative 09/12/2024 12:41 AM METEOROLOGY TEACHER EXAM DESCRIPTION: CT CHEST PE (CTA) W [...] Brien Pretty M.D. KT: KT Report ID: [id number] Reading Location: [id number] Procedure Note Brien Pretty MD - 09/12/2024 [...] Brien Pretty M.D. KT: KT Report ID: [id number] Reading Location: [place] [address] Valdez Lee MD IMG CT PROCEDURES Final Resu lt * XR Chest 1 Vw Portable (09/11/2024 11:41 PM METEOROLOGY TEACHER) Anatomical Region Laterality Modality Body, Chest N/A Computed Radiogr aphy 09/11/2024 11:4 3 PM METEOROLOGY TEACHER Narrative 09/11/2024 11:45 PM METEOROLOGY TEACHER EXAM DESCRIPTION: XR CHEST 1 VIEW REASON [...] Electronically signed by Viridiana Collier M.D. SN: SN Report ID: [id number] Reading Location: [id number] Procedure Note Viridiana Collier MD - 09/11/2024 [...] Electronically signed by Viridiana Collier M.D. SN: SN Report ID: [id number] Reading Location: [id number] Valdez Lee MD IMG XR PROCEDURES Final Resu lt * Immature platelet fraction (09/11/2024 11:22 PM METEOROLOGY TEACHER) IPF 5.6 1.6 - 10.1 % Blood 09/11/2024 11:2 2 PM METEOROLOGY TEACHER 09/11/2024 11:22 PM METEOROLOGY TEACHER us Valdez Lee MD LAB BLOOD ORDERABLES Final R esult JUDITH THOMPSON ([place]) 1 [facility] [place] [address] * eGFR (09/11/2024 11:22 PM METEOROLOGY TEACHER) eGFR 69 >=60 mL/min/1. 73 m2 Comment: [...] reviewed 2021. Blood 09/11/2024 11:2 2 PM METEOROLOGY TEACHER 09/11/2024 11:22 PM METEOROLOGY TEACHER Valdez Lee MD LAB BLOOD ORDERABLES Final R esult JUDITH THOMPSON ([place]) 1 [facility] [place] [address] * Differential, auto (09/11/2024 11:22 PM METEOROLOGY TEACHER) Neutrophil abs 2.0 1.5 - 6.5 K/cumm Imm gran abs 0.0 0.0 - 0.1 K/cumm [facility] ([place]) Lymphocyte abs 1.2 0.8 - 3.3 K/cumm [facility] ([place]) Monocyte abs 0.2 0.2 - 0.8 K/cumm [...] revised on 2018. Monocyte pct 5.8 % [facility] ([place]) Comment: Interpretive Data Percent cell count reference ranges are not reported, since discordance with absolute values may lead to misinterpretation of CBC data. Current Interpretive Data was last revised on 2018. Eosinophil pct 3.2 % [facility] ([place]) Comment: Interpretive Data Percent cell count reference ranges are not reported, since discordance with absolute values may lead to misinterpretation of CBC data. Current Interpretive Data was last revised on 2018. Basophil pct 0.9 % [facility] ([place]) Comment: Interpretive Data Percent cell count reference ranges are not reported, since discordance with absolute values may lead to misinterpretation of CBC data. Current Interpretive Data was last revised on 2018. Blood 09/11/2024 11:2 2 PM METEOROLOGY TEACHER 09/11/2024 11:22 PM METEOROLOGY TEACHER us Valdez Lee MD LAB BLOOD ORDERABLES Final R esult JUDITH [facility] ([place]) 1 [facility] Department [place] [address] * Pro B-type natriuretic peptide (09/11/2024 11:22 PM METEOROLOGY TEACHER) NT-proBNP 123 <=300 pg/mL Comment: Interpretive Comments: [...] Heart J. 2006:27:330-337. 2. Anette RW, Joana AM. J. AM Aishwarya Cardiol: Cardiovasc Imag. 2009;2: 216- 225. Interpretive Data Last Revised Date: 2018. Blood 09/11/2024 11:2 2 PM METEOROLOGY TEACHER 09/11/2024 11:22 PM METEOROLOGY TEACHER us Valdez Lee MD LAB BLOOD ORDERABLES Edited Result - Final [facility] ([place]) 1 [facility] Department [place] [address] * (ABNORMAL) CBC with auto differential (09/11/2024 11:22 PM METEOROLOGY TEACHER) WBC 3.5(L) 3.8 - 9.9 K/cumm Hgb 12.7 11.9 - 15.5 g/dL [facility] Hct 37.9 35.6 - 45.5 [...] RDW CV 15.7(H) 11.1 - 14.9 % [facility] ([place]) RDW SD 53.4(H) 35.7 - 48.1 fL [facility] ([place]) NRBC abs 0.00 0.00 - 0.01 K/cumm [facility] ([place] Blood 09/11/2024 11:2 2 PM METEOROLOGY TEACHER 09/11/2024 11:22 PM METEOROLOGY TEACHER Valdez Lee MD LAB BLOOD ORDERABLES Final R esult [facility] ([place]) 1 [facility] Department [place] [address] * (ABNORMAL) D-dimer, quantitative (09/11/2024 11:22 PM METEOROLOGY TEACHER) Pathologist [facility] D-Dimer 669(H) <=499 ng/mL FEU [facility] ([place]) Comment: Interpretive data FDA approved the [...] on 2019. Blood 09/11/2024 11:2 2 PM METEOROLOGY TEACHER 09/11/2024 11:28 PM METEOROLOGY TEACHER us Valdez Lee MD LAB BLOOD ORDERABLES Final R esult [facility] ([place]) 1 [facility] Department [place] [address] * (ABNORMAL) Comprehensive metabolic panel (09/11/2024 11:22 PM METEOROLOGY TEACHER) Sodium 144 135 - 145 mmol/L Potassium, [...] classification and Diagnosis of Diabetes Diabetes Care 2021; 46: S19-S40. Current interpretive data was last [...] S pecimen Blood 09/11/2024 11:2 2 PM METEOROLOGY TEACHER 09/11/2024 11:22 PM METEOROLOGY TEACHER Valdez Lee MD LAB BLOOD ORDERABLES Final R esult JUDITH THOMPSON ([place]) 1 [facility] [place] [address] * Troponin T high-sensitivity series (baseline, 2hr, 4hr, 6hr) (09/11/2024 11:15 PM METEOROLOGY TEACHER) Trop T hs 8 <=14 ng/L Comment: Interpretive Data For further hscTnT resources including the diagnostic algorithm and an aid in interpretation, copy and paste this link: https://nrl.testcatalog.org/show/hsTrop Current Interpretive Data last revised 2020. Blood 09/11/2024 11:1 5 PM METEOROLOGY TEACHER 09/12/2024 1:25 AM METEOROLOGY TEACHER Valdez Lee MD LAB BLOOD ORDERABLES Final R esult JUDITH THOMPSON ([place]) 1 [facility] [place] [address] from Last 3 Months Insurance [facility] Advance Directives For more information, please contact: [phone] * LIMITED - No CPR (Latest Code [...] 1:26 AM 09/12/2024 5:23 AM Care Teams Drier And Grinder Tender Relationship Specialty Start Date End Date Sadia Morris NP [address] [place] [address] [place] [id number] PCP - General Nurse Practitioner 02/28/24
--- OUTSIDE RECORDS SUMMARY | 2024-12-07 01:45 | XMS_ITS ---
Author Organization [facility] Address [address] [place] [address] Care Team Providers Care Baker Biscuit Name Role Phone Allie Lopez Primary Care Provider [phone] REASON FOR VISIT PA request Encounters Encounter Location Date Provider Diagnosis [facility] [address] [place] [address] 10/12/2024 Allie Lopez Plan Of Treatment No Information Progress Notes * Beulah MACHADODOB:[birth year] (44 yo F)Acc No.[id number]:10/12/2024 Patient: Eduar JOHNBeulah Adams :1980 A ge:44 Y S ex:Female Address:[facility] [place] [address] * true * Date: Generated for Printi ng/Faxing/eTransmitting on: 0 12/07/2024 01:44 AM RACK WASHER
--- OUTSIDE RECORDS SUMMARY | 2024-12-07 01:45 | XMS_ITS ---
Author Organization [facility] Address [address] [place] [address] Care Team Providers Care Drafting Supervisor Name Role Phone Allie Lopez Primary Care Provider [phone] Allergies Allergen (clinical drug ingredient) Drug/Non Drug Allergy documented on EMR Reaction Allergy Type Onset Date Status [place] Oil sunflower oil (uncoded) rash Allergy Active REASON FOR VISIT 2 Month Psych F/U & Med Refill Medications Medication SIG (Take, Route, Frequency, Duration) Notes Start Date End Date Status Doxepin HCl 10 MG 1 capsule at bedtime Orally Once a day for 90 days As needed Active Atorvastatin Calcium 80 MG 1 tablet Orally Once a day Hyperlipidemia Active Dexlansoprazole 60 MG 1 capsule Orally Once a day GERD Active Vitamin D 25 MCG (1000 UT) 1 tablet Orally Once a day Not-Taking HumaLOG KwikPen 100 UNIT/ML as directed Subcutaneous 65 units BID Active Prazosin HCl 2 MG 1 capsule at bedtime Orally Once a day for 90 days Active Topiramate ER 200 MG 1 capsule Orally Once a day Migraine Active Lisinopril 2.5 MG 1 tablet Orally Once a day HTN Active Cariprazine HCl 6 MG 1 capsule Orally Once a day for 90 days Active DULoxetine HCl 30 MG 1 capsule Orally twice a day for 90 days Active Carvedilol HTN Active Doxepin HCl 10 MG 1 capsule at bedtime Orally Once a day for 30 day(s) 07/29/2024 Active Excedrin Extra Strength migraine PRN Active hydrOXYzine HCl 25 MG 1 tablet as needed Orally three times a day for 90 days Active busPIRone HCl 15 MG 1 tablet Orally Twice a day for 90 days Active Cyclobenzaprine HCl Active Jardiance Active Folic Acid Active Pantoprazole Sodium Active Mounjaro Active Propranolol HCl 10 MG 1 tablet Orally Once a day Migraine Not-Taking Encounters Encounter Location Date Provider Diagnosis [place] [address] [place] [address] 12/01/2024 Allie Lopez Bipolar 1 disorder F31.9 Assessments Encounter Date Diagnosis (ICD Code) Assessment Notes Treatment Notes Treatment Clinical Notes Section Notes 12/01/2024 Bipolar 1 disorder (ICD-10 - F31.9) 12/01/2024 Other SGA SE- Discussed risks, benefits [...] in mood or behavior. Confirmed knowledge of [facility] hotline [phone] for clients 20 and under and [place] Crisis line [phone] and awareness of 988. SSRI Discussed possible side effects: GI upset, headache, decreased libido/anorgasmia, weight gain, signs of serotonin syndrome and risk of activation to suicidality Plan Of Treatment Medication Medication Name Sig Start Date Stop Date Notes Doxepin HCl 10 MG 1 capsule at bedtime Orally Once a day for 90 days Prazosin HCl 2 MG 1 capsule at bedtime Orally Once a day for 90 days Cariprazine HCl 6 MG 1 capsule Orally On ce a day for 90 days DULoxetine HCl 30 MG 1 capsule Orally tw ice a day for 90 days hydrOXYzine HCl 25 MG 1 tablet as needed Orally three times a day for 90 days busPIRone HCl 15 MG 1 tablet Orally Twic e a day for 90 days Treatment Notes Assessment Notes Other SGA SE- Discussed risks, benefits and [...] in mood or behavior. Confirmed knowledge of [facility] hotline [phone] for clients 20 and under and [place] Crisis line [phone] and awareness of 988. SSRI Discussed possible side effects: GI upset, headache, decreased libido/anorgasmia, weight gain, signs of serotonin syndrome and risk of activation to suicidality Next Appt Details Follow Up: 3 Months, Reason: Progress Notes * JEANNETTE BeulahDOB:[birth year] (44 yo F)Acc No.[id number]:12/01/2024 Patient: Beulah PALACIOS Provider: SLOAN Arias :1980 A ge:44 Y S ex:Female Date:12/01/2024 Address:[address] [place] [address] [address] [place] [id number] Check In:09:42 AM TELECOMMUNICATION LINES REPAIRER Subjective: * Chief Complaints: * 2 Month Psych F/U & Med Refill * HPI: P sych F/U: Patient presents for psychiatric follow-up visit. Changes since last visit?: H appy with the move to [place] closer to sister. Seeking SSDI and retained an workers compensation defense attorney. A1C is now under 6 and I can can tell. I have energy and feel decent. FEels Vraylar is working well dont' change a thing-it's dialed in. . Effectiveness of medications: Y es, patient reports they are effective. 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 Sleep: A ppropriate sleep doxepin is helpful no nightmares--continues with proazosin. Appetite A ppropriate appetite. Depression (10 = most depressed) 2 /10. Anxiety (10 = most anxious) 3 /10 I need to look for a job and that is never fun. Anger/Irritability (10 is highest): 0 /10. Suicidal ideation: D enies suicidal ideation.. Homicidal ideation: D enies homicidal ideation.. Hallucinations D enies hallucinations. Medical concerns or hospitalizations? A 1C is 5.6! using injection. . Therapy? 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 D epression Screening: PHQ-9 L ittle interest [...] Score 3 I nterpretation M inimal Depression S creening: [place] Suicide Severity Rating Scale (LF) D o you want to initiate with S creener form 1 . Wish to be : Have you wished you were or wished you could go to sleep and not wake up? N o 2 . Suicidal Thoughts: Have you actually had any thoughts of killing yourself? N o 6 . Suicide Behavior Question: Have you ever done anything,started to do anything, or prepared to end your life? N o I nterpretation: L ow Risk C SSRS Interpretation and Follow Up Plan: CSSRS Interpretation and Follow Up Plan C SSRS Screen documented using SF Y es R isk Disposition from L ow - No Follow Up Plan Required F ollow Up Plan N o Follow Up Plan required at this time. * ROS: P sych ROS: Constitutional D [...] other: , alzheimer's dementia. * Social History: P AST PSYCHIATRIC HISTORY: S [facility]F INJURY [...] 20's. 5-2 and 230lb. * Medications: T akingMounjaro Pantoprazole Sodium Folic Acid Jardiance Cyclobenzaprine HCl Carvedilol , Notes to Pharmacist: HTNExcedrin Extra Strength , Notes to Pharmacist: migraine PRNDoxepin HCl 10 MG Capsule 1 capsule at [...] capsule at bedtime Orally Once a day Lisinopril 2.5 MG Tablet 1 tablet Orally Once a day , Notes to Pharmacist: HTNTopiramate ER 200 MG Capsule ER 24 Hour Sprinkle 1 capsule Orally Once a day , Notes to Pharmacist: MigraineDexlansoprazole 60 MG Capsule Delayed Release 1 capsule Orally Once a day , Notes to Pharmacist: GERDAtorvastatin Calcium 80 MG Tablet 1 tablet Orally Once a day , Notes to Pharmacist: HyperlipidemiaHumaLOG KwikPen 100 UNIT/ML Solution Pen-injector as directed Subcutaneous , Notes to Pharmacist: 65 units BIDTaking Mounjaro Taking Pantoprazole Sodium Taking Folic Acid Taking Jardiance Taking Cyclobenzaprine HCl Taking Carvedilol , Notes to Pharmacist: HTNTaking Excedrin Extra Strength , Notes to Pharmacist: migraine PRNTaking Doxepin HCl 10 MG Capsule 1 capsule [...] at bedtime Orally Once a day Taking Lisinopril 2.5 MG Tablet 1 tablet Orally Once a day , Notes to Pharmacist: HTNTaking Topiramate ER 200 MG Capsule ER 24 Hour Sprinkle 1 capsule Orally Once a day , Notes to Pharmacist: MigraineTaking Dexlansoprazole 60 MG Capsule Delayed Release 1 capsule Orally Once a day , Notes to Pharmacist: GERDTaking Atorvastatin Calcium 80 MG Tablet 1 tablet Orally Once a day , Notes to Pharmacist: HyperlipidemiaTaking HumaLOG KwikPen 100 UNIT/ML Solution Pen-injector as directed Subcutaneous , Notes to Pharmacist: 65 units BIDNot-TakingVitamin D 25 MCG (1000 UT) Tablet 1 tablet Orally Once a day Propranolol HCl 10 MG Tablet 1 tablet Orally Once a day , Notes to Pharmacist: MigraineNot- Taking Vitamin D 25 MCG (1000 UT) Tablet 1 tablet Orally Once a day Not-Taking Propranolol HCl 10 MG Tablet 1 tablet Orally Once a day , Notes to Pharmacist: Migraine * Allergies: s unflower oil: rashno[Allergies Verified] [...] ood , Fair. FUND OF KNOWLEDGE G ood , Fair. ABILITY TO PARTICIPATE IN TREATMENT M oderate. WILLINGNESS TO PARTICIPATE IN TREATMENT M oderate. ? Assessment: * Assessment: 1. B ipolar 1 disorder - F31.9 (Primary) Plan: * Treatment: 2. O thers Notes: SGA SE- Discussed risks, benefits and side [...] in mood or behavior. Confirmed knowledge of [facility] hotline [phone] for clients 20 and under and [place] Crisis line [phone] and awareness of 178. SSRI Discussed possible side effects: GI upset, headache, decreased libido/anorgasmia, weight gain, signs of serotonin syndrome and risk of activation to suicidality * Procedure Codes: * Follow Up: 3 Months * * COMMUNICATION LINES REPAIRER Sign off status: Completed true * Provider: Ben Lopez ANP- Date: 12/01/2024 Generated for Hayleyi julia/Arlene/eTransmitting on: 12/07/2024 01:45 AM TELECOMMUNICATION LINES REPAIRER History and Physical Notes * HPI (History [...] Depression Psych F/U Changes since last visit?: Happy with the move to [place] closer to sister. Seeking SSDI and retained an workers compensation defense attorney. A1C is now under 6 and I can can tell. I have energy and feel decent. FEels Vraylar is working well dont' change a thing-it's dialed in. 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 Homicidal ideation: Denies homicidal glen ation. Hallucinations Denies hallucination s Medical concerns or hospitalizations? A1 C is 5.6! using injection. 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 Suicide Sev erity Rating Scale (LF) Do you want to initiate with: Screener form 1. Wish to be : Have you wished you were or wished you could go to sleep and not wake up?: No 2. Suicidal Thoughts: Have you actually had any thoughts of killing yourself?: No 6. Suicide Behavior Question: Have you ever done anything,started to do anything, or prepared to end your life?: No Interpretation:: Low Risk CSSRS Interpretation and Follow Up Plan CSSRS Interpretation and Follow Up Plan CSSRS Screen documented using SF: Yes Risk Disposition from SF: Low - No Follo w Up Plan Required Follow Up Plan: No Follow Up Plan requir ed at this time. Examination Category Sub-Category Detail Notes Category Not [...]
--- OUTSIDE RECORDS SUMMARY | 2024-12-07 01:45 | XMS_ITS | Clinical Summary ---
Author Organization [facility] Address [address] [place] [address] Care Team Providers Care Manager Math Name Role Phone Sadia Morris Primary Care Provider [phone] Sadia Morris Unavailable Source Comments [facility],non-owned Affiliates and Associated Physician Practices is amultiple site organization consisting of ambulatory clinics and hospital sitesin [place], [place], [place] and [place]. This disclosure is being madepursuant to the Care Everywhere program and may not contain all information available regarding this patient. Last updated 18.[facility] [employer] Allergies Active Allergy Reactions Criticality Noted Date Comments Sumatriptan Myalgias 03/15/2023 Sumatriptan Headache 10/07/2024 Hartley Oil Rash,Itching,Skin Reactions Medium 08/01/2017 actual sunflowers themselves Hartley Oil Nausea and/or Vomiting 10/07/2024 Medications * [...] fluticasone propionate (FLONASE) 50 MCG/ACT nasal spray Beatrice 2 (two) sprays into each nostril once [...] as needed Active Glucagon 3 MG/DOSE POWD Beatrice 3 mg into the nose as needed [...] bridging fibrosis. Right upper quadrant pain 08/01/2017 Encounters Date Type Department Care Team Description 11/17/2024 10:29 AM COAL INSPECTOR Anesthesia Event [facility] ENDOSCOPY [address] [place] [phone] Denis Hagan MD RobbRomina perez, [employer] PROGRAMS DIRECTOR-STRUCTURAL ENGINEERING DRAFTING OFFICER 11/17/2024 10:00 AM COAL INSPECTOR - 11/17/2024 10:30 AM COAL INSPECTOR Surgery [facility] ENDOSCOPY [address] [place] [phone] Chente Ludwig MD EGD +/- banding 11/17/2024 8:52 AM COAL INSPECTOR - 11/17/2024 11:45 AM COAL INSPECTOR Hospital Encounter [facility] LIBAN OP [address] [place] [phone] Chente Ludwig MD Surgery General Discharge Disposition: Home or Self Care 11/17/2024 Travel 11/12/2024 Patient Outreach [facility] ENDOSCOPY [address] [place] [phone] Rosi Jj RN 10/16/2024 Travel 10/11/2024 Orders Only [facility] - GI [address] [place] [phone] Espinoza Parra MD Bleeding esophageal varices, unspecified esophageal varices type (HCC) 10/09/2024 2:33 PM COAL INSPECTOR Anesthesia Event [facility] ENDOSCOPY [address] [place] [phone] Andrea De León MD 10/09/2024 2:05 PM COAL INSPECTOR - 10/09/2024 2:35 PM COAL INSPECTOR Surgery [facility] ENDOSCOPY [address] [place] [phone] Dario Nelson MD EGD 10/07/2024 4:47 PM COAL INSPECTOR - 10/11/2024 4:17 PM COAL INSPECTOR Hospital Encounter [facility] 7S ACUTE [address] [place] [phone] Misha Tapia MD Sonoda, Kento, MD Hazam, Randa, MD Gastroenterology Discharge Disposition: Home or Self Care 10/07/2024 Travel 10/06/2024 Telephone [facility] INTERNAL MED [address] [place] [phone] Misha Tapia MD General (Outside hospital transfer request/) 09/29/2024 1:30 PM COAL INSPECTOR Office Visit [facility] - GI [address] [place] [phone] Salomon Sapp MD 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 (F LUZONE PF QUADRIVALENT; 6-35MO), 0.25 ML (IIV4) 09/17/2019(Deferred: See Comments - vaccine given) INFLUENZA VACCINE, QUADR. (F LUZONE; FLULAVAL; FLUARIX; AFLURIA QUADRIVALENT; 6MO+), 0.5 ML (IIV4) 09/14/2019 Family History Medical History Relation Name Comments None Known Brother Status: Alive CVA Father Status: d Hypertension Father CAD (Coronary Artery Disease) Mother Status: Alive Hypertension Mother None Known Sister 1 Status: Alive None Known Sister 2 Status: Alive Relation Name Status Comments Brother Father Mother Sister 1 Sister 2 Social History Tobacco Use Types Packs/Day Years [...] and heating? Not hard at all 10/07/2024 [facility] of Occupat ional [facility] - Occupational Stress Questionnaire Answer Date Recorded [...] any time in the past [address] [facility], were you homeless or living in a assisted (including now)? No 10/07/2024 Sex and Gender Information Value Date Recorded Sex Assigned at Female 04/21/2024 2:38 PM CDT Gender Identity Female 04/21/2024 2:38 PM CDT Sexual Orientation Straight 04/21/2024 2: 38 PM CDT Last Filed Vital Signs Vital Sign Reading Time Taken Comments Blood Pressure 118/66 11/17/2024 11:30 AM COAL INSPECTOR Pulse 74 11/17/2024 11:30 AM COAL INSPECTOR Temperature 36.5 C (97.7 F) 11/17/2024 10:54 AM COAL INSPECTOR Respiratory Rate 14 11/17/2024 11:30 AM COAL INSPECTOR Oxygen Saturation 98% 11/17/2024 11:30 AM COAL INSPECTOR Inhaled Oxygen Concentration - - Weight 87.8 kg (193 lb 9.6 oz) 11/17/2024 9:37 A M COAL INSPECTOR Height 157.5 cm (5' 2 ) 11/17/2024 9:37 AM COAL INSPECTOR Body Mass Index 35.41 11/17/2024 9:37 AM COAL INSPECTOR Plan of Treatment Upcoming Encounters Date Type Department Care Team (Late st Contact Info) Description 12/15/2024 9:30 AM COAL INSPECTOR Office Visit [facility] - GI [address] [place] [address], [facility] [place] [phone] Salomon Sapp MD [address] [place] [address] 2[address] [facility] [place] [address] 03/19/2025 11:30 AM CDT Appointment [facility] MRI [address] [place] [phone] Salomon Sapp MD [address] [place] [address] [address] [place] [address] 09/24/2025 9:30 AM COAL INSPECTOR Appointment [facility] [address] [place] [phone] Salomon Sapp MD [address] [place] [address] [address] [place] [address] 09/24/2025 10:30 AM COAL INSPECTOR Office Visit [facility] - GI [address] [place] [address], [place] [phone] Salomon Sapp MD [address] [place] [address] [address] [place] [address] Health Maintenance Due Date Last Done Comments COLOGUARD (AGES 45-75) - COLON CA SCREENING 1978 CT COLONOGRAPHY - COLON CA SCREENING 1978 FIT - COLON CA SCREENING 1978 FLEX SIG - COLON CA SCREENING 1978 MAMMOGRAM 1978 PAP SMEAR 1978 HIV SCREENING 1993 DTAP/TDAP/TD VACCINES (1 - Tdap) 1997 PNEUMOCOCCAL VACCINE (1 of 2 - PCV) 1997 DIABETES RETINOPATHY SCREENING 12/04/2018 DIABETES-FOOT EXAM WITH MONOFILAMENT 12/04/2018 COVID-19 VACCINE (1 - season) 2024 INFLUENZA VACCINE (#1) 2024 07/15/2020, 2018 DIABETES - URINE PROTEIN SCREENING 10/14/2024 DIABETES-HGB A1C 04/08/2025 10/08/2024, , 06/02/2021, Additional history exists DIABETES-SERUM CREATININE 10/11/20252023, 10/10/2024, 10/09/2024, Additional history exists ZOSTER VACCINE (1 of 2) 2028 COLON MONITORING 08/27/2032 08/27/2022, 08/27/2022 COLONOSCOPY - COLON CA SCREENING 08/27/2032 08/27/2022, 08/27/2022 Colorectal Cancer Screening 08/27/2032 HEPATITIS C SCREENING Completed 11/14/2017 HEPATITIS A VACCINE Completed 06/04/2019, 01/01/2019, 12/04/2018 HEPATITIS B VACCINE Completed 06/04/2019, 01/01/2019, 12/04/2018 HIB VACCINE Aged Out No longer eligi ble based on patient's age to complete this topic HPV VACCINE Aged Out No longer eligi ble based on patient's age to complete this topic MENINGOCOCCAL (Group B) VACCINE Aged Out No longer eligible based on patient's age to complete this topic MENINGOCOCCAL VACCINE Aged Out No john estela eligible based on patient's age to complete this topic Goals Goal Patient Goal Type Associated Problems Recent Progress Patient-Stated? Author Medication Management General On track( 023 12:31 PM COAL INSPECTOR) Mary Kay Andrade, RN Note: Expected end date: ongoing Interventions: Take all medications as prescribed Let your doctor know right away about any changes in your medications Make sure to request a refill of your medication at least one week prior to your last dose Procedures Procedure Name Priority Date/Time Associated Diagnosis Comments EGD Routine 11/17/2024 10:28 AM COAL INSPECTOR NE ED EGD FLEX TRANSORAL DX 11/17/2024 10:24 AM COAL INSPECTOR Esophageal varices without bleeding, unspecified esophageal varices type (HCC) Special Needs Repeat EGD 4 to 6 weeks Received: Today Espinoza Parra MD [facility] Schedulers - Endoscopy Pool Dear Scheduling Team, Could we please arrange outpatient EGD for Beulah Garcia in 4 to 6 weeks for follow up of Esophageal variceal banding. no, medication changes are needed prior to the procedure. Anticoagulation: None I appreciate your help in arranging the patient's procedure. Sincerely, Espinoza Parra MD GI Fellow, Division of Gastroenterology / Hepatology [facility] Received Date Received Time Oct 11, 2024 9:15 AM GLUCOSE - POINT OF CARE Routine 11/17/2024 9:55 AM COAL INSPECTOR PREPARE RBC LEUKOREDUCED UNIT Routine 10/12/2024 1:17 AM COAL INSPECTOR GLUCOSE - POINT OF CARE Routine 10/11/2024 12:12 PM COAL INSPECTOR HGB HCT PANEL Routine 10/11/2024 11:42 AM COAL INSPECTOR GLUCOSE - POINT OF CARE Routine 10/11/2024 7:30 AM COAL INSPECTOR GLUCOSE - POINT OF CARE Routine 10/11/2024 6:19 AM COAL INSPECTOR PHOSPHORUS BLOOD Routine 10/11/2024 5:57 AM COAL INSPECTOR MAGNESIUM BLOOD Routine 10/11/2024 5:57 AM COAL INSPECTOR CBC W/O DIFFERENTIAL Routine 10/11/2024 5:57 AM COAL INSPECTOR COMPREHENSIVE METABOLIC PANEL Routine 10/11/2024 5:57 AM COAL INSPECTOR GLUCOSE - POINT OF CARE Routine 10/10/2024 4:58 PM COAL INSPECTOR HGB HCT PANEL Routine 10/10/2024 4:13 PM COAL INSPECTOR GLUCOSE - POINT OF CARE Routine 10/10/2024 11:32 AM COAL INSPECTOR GLUCOSE - POINT OF CARE Routine 10/10/2024 8:04 AM COAL INSPECTOR CBC W/O DIFFERENTIAL Routine 10/10/2024 6:30 AM COAL INSPECTOR PHOSPHORUS BLOOD Routine 10/10/2024 5:46 AM COAL INSPECTOR MAGNESIUM BLOOD Routine 10/10/2024 5:46 AM COAL INSPECTOR COMPREHENSIVE METABOLIC PANEL Routine 10/10/2024 5:46 AM COAL INSPECTOR GLUCOSE - POINT OF CARE Routine 10/09/2024 8:26 PM COAL INSPECTOR GLUCOSE - POINT OF CARE Routine 10/09/2024 5:16 PM COAL INSPECTOR HGB HCT PANEL Routine 10/09/2024 4:45 PM COAL INSPECTOR NE ED EGD FLEX TRANSORAL DX 10/09/2024 2:28 PM COAL INSPECTOR Hematemesis, unspecified whether nausea present EGD Routine 10/09/2024 2:22 PM COAL INSPECTOR GLUCOSE - POINT OF CARE Routine 10/09/2024 11:57 AM COAL INSPECTOR TRANSFUSE RED BLOOD CELL LEUKOREDUCED UNIT(S) Routine 10/09/2024 11:[address] ANGIO ABDOMEN PELVIS STAT 10/09/2024 11:08 AM COAL INSPECTOR Acute gastrointestinal bleeding 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) Abdominal pain, right lower quadrant PREPARE RBC LEUKOREDUCED UNIT Routine 10/09/2024 11:06 AM COAL INSPECTOR TYPE + SCREEN PANEL STAT 10/09/2024 9:49 AM COAL INSPECTOR HGB HCT PANEL Routine 10/09/2024 9:49 AM COAL INSPECTOR GLUCOSE - POINT OF CARE Routine 10/09/2024 8:27 AM COAL INSPECTOR PHOSPHORUS BLOOD Routine 10/09/2024 5:30 AM COAL INSPECTOR MAGNESIUM BLOOD Routine 10/09/2024 5:30 AM COAL INSPECTOR CBC W/O DIFFERENTIAL Routine 10/09/2024 5:30 AM COAL INSPECTOR COMPREHENSIVE METABOLIC PANEL Routine 10/09/2024 5:30 AM COAL INSPECTOR GLUCOSE - POINT OF CARE Routine 10/08/2024 9:11 PM COAL INSPECTOR GLUCOSE - POINT OF CARE Routine 10/08/2024 5:38 PM COAL INSPECTOR BLOOD TYPE VERIFICATION Routine 10/08/2024 12:24 PM COAL INSPECTOR BLOOD TYPE ABO+ RH PANEL Routine 10/08/2024 11:11 AM COAL INSPECTOR PT-INR [facility] Routine 10/08/2024 11:11 AM COAL INSPECTOR PHOSPHORUS BLOOD Routine 10/08/2024 11:11 AM COAL INSPECTOR MAGNESIUM BLOOD Routine 10/08/2024 11:11 AM COAL INSPECTOR CBC W/O DIFFERENTIAL Routine 10/08/2024 11:11 AM COAL INSPECTOR COMPREHENSIVE METABOLIC PANEL Routine 10/08/2024 11:11 AM COAL INSPECTOR HEMOGLOBIN A1C Routine 10/08/2024 9:31 AM COAL INSPECTOR GLUCOSE - POINT OF CARE Routine 10/08/2024 8:33 AM COAL INSPECTOR GLUCOSE - POINT OF CARE Routine 10/08/2024 6:53 AM COAL INSPECTOR GLUCOSE - POINT OF CARE Routine 10/07/2024 8:06 PM COAL INSPECTOR GLUCOSE - POINT OF CARE Routine 10/07/2024 5:27 PM COAL INSPECTOR MRI ABDOMEN WWO CONTRAST Routine 09/29/2024 12:28 PM COAL INSPECTOR 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 Procedure Code(s): --- Professional --- 85517, Esophagogastrodu odenoscopy, flexible, transoral; with band ligation of esophageal/gastr ic varices Diagnosis Code(s): --- Professional --- R12, Heartburn K76.6, Portal hypertension I85.00, Esophageal varices without bleeding K31.89, Other diseases of stomach and duodenum CPT copyright 2021 [employer]. All rights reserved. The codes documented in this report are preliminary and upon wrestling coach review may be revised to meet current compliance requirements. Chente Ludwig MD 11/17/2024 10:51:14 AM Note Initiated On: 11/17/2024 10:28 AM Number of Addenda: [address] [id number] [facility] [employer] 11/17/2024 10:2 8 AM COAL INSPECTOR Chente Ludwig MD GI PROCEDURE ORDERAB LES [facility] [employer] * (ABNORMAL) GLUCOSE - POINT OF CARE (11/17/2024 9:55 AM COAL INSPECTOR) Only the most recent of17 resultswithin the time period is included. Glucose WB/POC 113(H) 70 - 99 mg/dL 11/17/2024 10:00 AM COAL INSPECTOR [facility] Specimen Type Venous 11/17/2024 10:00 AM COAL INSPECTOR [facility] Blood BLOOD SPECIMEN / Unknown 11/17/2024 9:55 AM COAL INSPECTOR 11/17/2024 10:00 AM COAL INSPECTOR Chente Ludwig MD LAB - POINT OF CARE ORDERABLES Performing Organization Address City/[facility]/ZIP Co de Phone Number [address] [address], [facility] [phone] * PREPARE (CROSSMATCH) RBC UNIT(S), 1 Units (10/12/2024 1:17 AM COAL INSPECTOR) Only the most recent of2 resultswithin the time period is included. Pathologist [facility] Unit Description N/A [facility] Blood Bank BLOOD SPECIMEN / Unknown 10/08/2024 11:38 AM COAL INSPECTOR Trudi Sinha MD LAB - BLOOD BANK ORD ERABLES Performing Organization Address City/[facility]/ZIP Co de Phone Number [facility] [address] [place] [address], [facility] [phone] * (ABNORMAL) HGB HCT PANEL (10/11/2024 11:42 AM COAL INSPECTOR) Only the most recent of4 resultswithin the time period is included. [facility] Hemoglobin 8.0(L) 11.9 - 15.8 g/dL 10/11/2024 12:28 PM [facility] Hematocrit 24.1(L) 34.8 - 46.1 % 10/11/2024 12:28 PM [facility] Blood BLOOD SPECIMEN / Unknown Lab Venipuncture / Unknown 10/11/2024 11:42 AM COAL INSPECTOR 10/11/2024 12:07 PM COAL INSPECTOR Trudi Sinha MD LAB - HEMATOLOGY ORD ERABLES [facility] [address] [place] [address], [facility] [phone] * (ABNORMAL) CBC W/O DIFFERENTIAL (10/11/2024 5:57 AM COAL INSPECTOR) Only the most recent of4 resultswithin the time period is included. Pathologist [facility] WBC 1.9(L) 4.0 - 10.7 x10E9/L 10/11/2024 7:07 AM [facility] RBC Count 2.67(L) 3.90 - 5.20 x10E12/L 10/11/2024 7:07 AM [facility] Hemoglobin 8.4(L) 11.9 - 15.8 g/dL 10/11/2024 7:07 AM [facility] Hematocrit 24.2(L) 34.8 - 46.1 % 10/11/2024 7:07 AM [facility] MCV 90.6 80.0 - 98.0 fL 10/11/2024 7:07 AM [facility] MCH 31.5 26.7 - 33.6 pg 10/11/2024 7:07 AM [facility] MCHC 34.7 31.7 - 36.3 g/dL 10/11/2024 7:07 AM [facility] RDW-CV 17.0(H) 11.3 - 14.8 % 10/11/2024 7:07 AM [facility] Platelet Count 41(L) 150 - 420 x10E9/L 10/11/2024 7:07 AM [facility] MPV 11.3 7.8 - 11.4 fL 10/11/2024 7:07 AM [facility] Blood BLOOD SPECIMEN / Unknown Venipuncture / Unknown 10/11/2024 5:57 AM COAL INSPECTOR 10/11/2024 6:25 AM [facility] Ron Dawson MD LAB - HEMATOLOGY ORD ERABLES [facility] [address] [place] [address], [facility] [phone] * (ABNORMAL) COMPREHENSIVE METABOLIC PANEL (10/11/2024 5:57 AM COAL INSPECTOR) Only the most recent of4 resultswithin the time period is included. BUN 5(L) 7 - 26 mg/dL 10/11/2024 6:56 AM [facility] Creatinine 0.81 0.56 - 0.96 mg/dL 10/11/2024 6:56 AM [facility] Sodium 140 136 - 145 mmol/L 10/11/2024 6:56 AM [facility] Potassium 3.6 3.5 - 4.5 mmol/L 10/11/2024 6:56 AM [facility] Chloride 113(H) 98 - 107 mmol/L 10/11/2024 6:56 AM [facility] CO2 21(L) 22 - 29 mmol/L 10/11/2024 6:56 AM [facility] Glucose 172(H) 70 - 99 mg/dL 10/11/2024 6:56 AM [facility] Calcium 8.4 8.4 - 10.2 mg/dL 10/11/2024 6:56 AM [facility] Protein Total 5.4(L) 6.0 - 8.3 g/dL 10/11/2024 6:56 AM [facility] Albumin 3.6 3.4 - 5.0 g/dL 10/11/2024 6:56 AM [facility] Bilirubin Total 0.9 0.2 - 1.2 mg/dL 10/11/2024 6:56 AM [facility] Alkaline Phosphatase 50 40 - 150 U/L 10/11/2024 6:56 AM [facility] ALT 29 5 - 55 U/L 10/11/2024 6:56 AM [facility] AST 49(H) 5 - 34 U/L 10/11/2024 6:56 AM [facility] Anion Gap 6 6 - 16 10/11/2024 6:56 AM [facility] BUN/Creatinine Ratio 6(L) 7 - 23 10/11/2024 6:56 AM [facility] Osmolality Calculated 291 275 - 295 mOsm/kg 10/11/2024 6:56 AM [facility] Albumin/Globulin Ratio 2.0 1.1 - 2.3 10/11/2024 6:56 AM [facility] eGFR by CKD-EPI >90 >=90 mL/min/1.7 3 m2 10/11/2024 6:56 AM [facility] Blood BLOOD SPECIMEN / Unknown Venipuncture / Unknown 10/11/2024 5:57 AM COAL INSPECTOR 10/11/2024 6:26 AM [facility] Ron Dawson MD LAB - CHEMISTRY SUZY HONG [facility] Organization Address City/State/ZIP Co de Phone Number [facility] [address] [place] [address], [facility] [phone] * (ABNORMAL) PHOSPHORUS BLOOD (10/11/2024 5:57 AM [facility]) Only the most recent of4 resultswithin the time period is included. Phosphorus 1.7(L) 2.9 - 5.1 mg/dL 10/11/2024 6:56 AM COAL INSPECTOR [facility] Blood BLOOD SPECIMEN / Unknown Venipuncture / Unknown 10/11/2024 5:57 AM COAL INSPECTOR 10/11/2024 6:26 AM COAL INSPECTOR Ron Dawson MD LAB - CHEMISTRY SUZY HONG Performing Organization Address City/[facility]/ZIP Co de Phone Number [facility] [address] [place] [address], [facility] [phone] * MAGNESIUM BLOOD (10/11/2024 5:57 AM COAL INSPECTOR) Only the most recent of4 resultswithin the time period is included. [facility] Magnesium 1.8 1.6 - 2.6 mg/dL 10/11/2024 6:56 AM COAL INSPECTOR [facility] Blood BLOOD SPECIMEN / Unknown Venipuncture / Unknown 10/11/2024 5:57 AM COAL INSPECTOR 10/11/2024 6:26 AM COAL INSPECTOR Ron Dawson MD LAB - CHEMISTRY SUZY HONG Performing Organization Address City/[facility]/ZIP Co de Phone Number [address] [address], [facility] [phone] * EGD (10/09/2024 2:22 PM COAL INSPECTOR) [facility] Report Endoscopy POC Endoscopy Department Report _ [...] non-leong portions. Procedure Code(s): --- Professional --- 66524, Esophagogastroduo denoscopy, flexible, transoral; with band ligation of esophageal/gastri c varices Diagnosis Code(s): --- Professional --- I85.00, Esophageal varices without bleeding K76.6, Portal hypertension K31.89, Other diseases of stomach and duodenum K92.0, Hematemesis K92.1, Melena (includes Hematochezia) CPT copyright 2021 [employer]. All rights reserved. The codes documented in this report are preliminary and upon wrestling coach review may be revised to meet current compliance requirements. Dario A Agbim, 10/09/2024 3:10:15 PM Note Initiated On: 10/09/2024 2:22 PM Number of Addenda: 0 [facility] [address] [place] [id number] [place] [address] [employer] 10/09/2024 2:22 PM COAL INSPECTOR Trudi Sinha MD GI PROCEDURE ORDERAB LES Performing Organization Address City/State/[facility] Co de Phone Number [facility] [employer] * TRANSFUSE RED BLOOD CELL LEUKOREDUCED UNIT(S) (10/09/2024 1:49 PM COAL INSPECTOR) Trudi Sinha MD NURSING - BLOOD PROD TRANSFUSION * CT Angio Abdomen Pelvis (10/09/2024 11:08 AM COAL INSPECTOR) Anatomical Region Laterality Modality Abdomen, Pelvis Computed Tomogra phy 10/09/2024 11:1 6 AM COAL INSPECTOR Impressions 10/09/2024 12:01 PM COAL INSPECTOR Impression: 1.No active bleeding identified in the [...] > Dictated by Celestine Arciniega MD, MD (vice president regulatory). I, Arsh Iqbal MD have personally reviewed and interpreted this examination/study. > Interpreting Provider: Arsh Iqbal MD on 10/09/2024 12:01 PM Narrative 10/09/2024 12:01 PM COAL INSPECTOR PROCEDURE: CT ANGIO ABDOMEN PELVIS, DATE/TIME OF EXAM: 10/09/2024 11:08 AM, LOCATION [facility] INDICATION: K92.2: Acute gastrointestinal [...] PELVIS, DATE/TIME OF EXAM: 1:08 AM, LOCATION [facility] INDICATION: K92.2: Acute gastrointestinal [...] > Dictated by Celestine Arciniega MD, MD (vice president regulatory). I, Arsh Iqbal MD have personally reviewed and interpreted this examination/study. > Interpreting Provider: Arsh Iqbal MD on 2:[address] ORDERABLES * TYPE + SCREEN PANEL (10/09/2024 9:49 AM COAL INSPECTOR) Pathologist [facility] Antibody Screen NEG 10:49 AM COAL INSPECTOR [facility] ABO Rh O POS 10/09/2024 10:49 AM COAL INSPECTOR [facility] Blood Bank BLOOD SPECIMEN / Unknown Lab Venipuncture / Unknown 10/09/2024 9:49 AM COAL INSPECTOR 10/09/2024 10:05 AM COAL INSPECTOR Trudi Sinha MD LAB - BLOOD BANK ORD ERABLES [facility] [address] [place] [address], [facility] [phone] * BLOOD TYPE VERIFICATION (10/08/2024 12:24 PM COAL INSPECTOR) Pathologist [facility] ABO Rh O POS 10/08/2024 1:1 0 PM COAL INSPECTOR [facility] Blood Bank BLOOD SPECIMEN / Unknown Venipuncture / Unknown 10/08/2024 12:24 PM COAL INSPECTOR 10/08/2024 12:32 PM COAL INSPECTOR Ron Dawson MD LAB - BLOOD BANK ORD [employer] [facility] [address] [place] [address], [facility] [phone] * (ABNORMAL) PT-INR [facility] (10/08/2024 11:11 AM COAL INSPECTOR) Pathologist [facility] PT 16.5(H) 12.1 - 14.8 Seconds 10/08/2024 11:51 AM COAL INSPECTOR [facility] INR 1.4 See Comment 10/08/2024 11:51 AM [facility] Comment:The suggested therap eutic range for standard coumadin (warfarin) therapy is an INR of 2.0-3.0. For high-risk patients (Mechanical Mitral Valve Prosthesis, etc.), the suggested prophylactic therapeutic range is an INR of 2.5-3.5. Blood BLOOD SPECIMEN / Unknown Venipuncture / Unknown 10/08/2024 11:11 AM COAL INSPECTOR 10/08/2024 11:24 AM COAL INSPECTOR Ron Dawson MD LAB - COAGULATION OR DERABLES Performing Organization Address City/[facility]/ZIP Co de Phone Number [facility] [address] [place] [address], [facility] [phone] * BLOOD TYPE ABO+ RH PANEL (10/08/2024 11:11 AM COAL INSPECTOR) ABO Rh O POS 10/08/2024 12:13 PM [facility] Blood BLOOD SPECIMEN / Unknown Venipuncture / Unknown 10/08/2024 11:11 AM COAL INSPECTOR 10/08/2024 11:38 AM COAL INSPECTOR Ron Dawson MD LAB - BLOOD BANK ORD ERABLES Performing Organization Address [facility]/ZIP Co de Phone Number [facility] [address] [place] [address], [facility] [phone] * HEMOGLOBIN A1C (10/08/2024 9:31 AM COAL INSPECTOR) Hemoglobin A1c 5.3 <=5.6 % 10/08/2024 1:40 PM [facility] Estimated Average Glucose 105 mg/dL 10/08/2024 1:40 PM [facility] Comment: HbA1c Interpretation: Normal : < 5.7% Pre-diabetes: 5.7-6.4% Diabetes: Equal to or greater than 6.5% Test results diagnostic of diabetes should be repeated for confirmation. Treatment target values recommended by ADA and other clinical organizations should be used to evaluate metabolic control in patients. Reference: [place] [employer], Standards of Care in Diabetes -2020 In patients 70 years and older consider HbA1c target range of 7.0-7.5% (Reference: Garcia Contreras et al. JAMDA. 2012) The Sebia assay for the measurement of HbA1c is a National Glycohemoglobin Standardization Program (NGSP) certified method. Blood BLOOD SPECIMEN / Unknown Lab Venipuncture / Unknown 10/08/2024 9:31 AM COAL INSPECTOR 10/08/2024 9:59 AM COAL INSPECTOR Ron Dawson MD LAB - CHEMISTRY SUZY HONG [facility] [address] [place] [id number], [facility] [phone] * MRI ABDOMEN WWO CONTRAST (09/29/2024 12:28 PM COAL INSPECTOR) Anatomical Region Laterality Modality Abdomen Magnetic Resonan ce 09/29/2024 1:10 PM COAL INSPECTOR Impressions 09/29/2024 5:24 PM COAL INSPECTOR Impression: 1.Multiple sub-5 mm arterial enhancing LR 3 observations within the right hemiliver without washout- LR-3. 2.Hepatic cirrhosis with sequelae of portal hypertension including splenomegaly and trace ascites. Report dictated by Treasure Durbin MD, > Dictated by Treasure Durbin MD (Narrow Fabric Calenderer) 09/29/2024 1:10 PM IMaribel MD have personally reviewed and interpreted this examination/study. > Interpreting Provider: Maribel Connors MD on 09/29/2024 5:24 PM Narrative 09/29/2024 5:24 PM COAL INSPECTOR PROCEDURE: MRI ABDOMEN WWO CONTRAST, DATE/TIME OF EXAM: 09/29/2024 12:28 PM, LOCATION [facility] INDICATION: K75.81: Liver cirrhosis [...] CONTRAST, DATE/TIME OF EXAM: 2:28 PM, LOCATION [facility] INDICATION: K75.81: Liver cirrhosis [...] MD, > Dictated by Treasure Durbin MD ([employer] Calenderer) 09/29/2024 1:10 PM IMaribel MD have personally reviewed and interpreted this examination/study. > Interpreting Provider: Maribel Connors MD on 09/29/2024 5:24 PM Salomon Sapp MD MR ORDERABLES * ENDOSCOPY, COLON, DIAGNOSTIC (08/27/2022 12:28 PM COAL INSPECTOR) Report Endoscopy POC Endoscopy Department Report _ [...] entire procedure. Procedure Code(s): --- Professional --- 74890, Colonoscopy, flexible; with removal of tumor(s), polyp(s), or other lesion(s) by snare technique Diagnosis Code(s): --- Professional --- K63.5, Polyp of colon K64.4, Residual hemorrhoidal skin tags R10.84, Generalized abdominal pain K92.1, Melena (includes Hematochezia) CPT copyright 2019 [employer]. All rights reserved. The codes documented in this report are preliminary and upon wrestling coach review may be revised to meet current compliance requirements. Salomon Sapp MD 08/27/2022 1:27:31 PM This report has been signed electronically. Note Initiated On: 08/27/2022 12:28 PM Number of Addenda: [address] 08/27/2022 12:2 8 PM COAL INSPECTOR Salomon Sapp MD GI PROCEDURE ORDERAB LES Performing Organization Address City/[facility] Co de Phone Number [facility] * HEPATITIS C ANTIBODY (11/14/2017 10:15 AM COAL INSPECTOR) Hepatitis C Antibody Non-react [facility] Comment: Hepatitis C Antibody screen indicates no serologic evidence of past or current infection with Hepatitis C Virus. Patients with unexplained liver disease who are immunocompromised or suspected of having acute Hepatitis C infection may benefit from Nucleic Acid Test (USMAN) for Hepatitis C Viral RNA to confirm Hepatitis C status. Blood specimen (specimen) BLOOD SPECIMEN / Unknown 11/14/2017 10:15 AM COAL INSPECTOR 11/14/2017 11:03 AM COAL INSPECTOR Verito Mcclendon MD LAB - CHEMISTRY OR DERABLES [address] [phone] from Last 3 Months or Most Recently Relevant to Health Maintenance Advance Directives * Full Code (Latest Code Status on File) Date Activated Date Inactivated Comments 10/07/2024 6:10 PM 10/11/2024 5:22 PM Care Teams Manager Math Relationship Specialty Start Date End Date Sadia Morris [address] [place] [address] [address] [place] [address] PCP - General 09/13/24 Sadia Morris [address] [place] [address] [address] [place] [address] 09/13/24
[2024-12-07 12:47] VITALS: BP 109/71; PULSE 67; RESP 18; TEMP 36.1; O2SAT 100
[2024-12-07] MEDS: LACTATED RINGERS 1,000 ML 150 ML IV CONT (13:01)
[2024-12-07 13:02] LABS: Glucose Point of Care 156 mg/dl (65-105)
--- NOTE | 2024-12-07 13:22 | PM.HPGS ---
History of Present Illness History of Present Illness Consent: Risks, benefits, and alternatives have been discussed and questions answered. Patient agrees to proceed with procedure. Chief complaint: hemorrhage, hemorrhoids Narrative: Beulah Garcia is a 44 year old female with mash cirrhosis here with intermittent blood in stools, last colonoscopy 2015 Review of Systems Review of Systems: All systems reviewed & are unremarkable except as noted in HPI and below PMFSH Past Medical History Medical History Type 2 diabetes mellitus (~2006) Rectal bleeding Left knee pain Medial meniscus tear Chronic nausea Gastroesophageal reflux disease Esophageal varices determined by endoscopy Irritable bowel syndrome with alternating bowel habits Portal hypertensive gastropathy Cirrhosis Bipolar 2 disorder Alopecia Cat scratch of forearm Body mass index (BMI) 35 or more (05/05/19) Vaginal yeast infection Type 2 diabetes mellitus with hyperglycemia Benign essential hypertension Abnormal vaginal bleeding Abnormal CT of brain Nausea & vomiting Hx of renal calculi (~07/2021) Portal hypertension (~07/2021) Chronic GERD Ganglion cyst Vitamin D deficiency Dyslipidemia BMI 40.0-44.9, adult Anxiety and depression HTN (hypertension) Type 2 diabetes mellitus with other circulatory complications (~2006) Avulsion fracture of right calcaneus with delayed healing (~2016) Other and unspecified hyperlipidemia (~2018) Hypertension complicating diabetes (~2013) Iron deficiency anemia due to chronic blood loss (~2016) 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: [facility] Microalbuminuria due to type 2 diabetes mellitus (~2017) Migraine without aura, not intractable, with status migrainosus (~1992) meds tried: midrin (helpful), imitrex (no help), zomig, topamax (helpful) Recurrent major depressive disorder in partial remission (~1992) Renal cyst, acquired (~2011) Hyperlipidemia associated with type 2 diabetes mellitus (~2018) Unspecified cirrhosis of liver (~2014) LOVE Surgical History Surgical History History of urethral stent (~07/2021) H/O: hysterectomy H/O left knee surgery Status post right foot surgery (~2017) History of cholecystectomy (~2017) Family History Family History Father Hypertension Cerebrovascular accident Family history of diabetes mellitus in first degree relative Diabetes mellitus Mother Hypertension Other Family history of Alzheimer's disease Family history of cardiovascular disease Family history of chronic obstructive pulmonary disease Family history of congestive heart failure Family history of hearing loss Family history of migraine headaches Family history of obesity Social History Social History Social History: , no children. Unemployed. Caffeine-rarely Smoking packs per day: 1 Smoking cigarettes per day: 20.0 Years smoked: 13 Smoking pack-years: 13.00 Smoking status: Former smoker Tobacco type: e-cigarettes/vaping Smoking end date: 10/14/06 Alcohol intake: never Substance use: never Substance use type: does not use Last use: Quit 1996 Do You Feel Safe in your Home?: Yes Lack of Transportation: No Lack of Food: Never True Current Housing: I Have Housing Concerned About Future Housing: No Difficulty Paying Gas/Electric Bills: No Difficulty Paying for Meds: No Currently Unemployed: Decline to Answer Education: Associate Degree Living arrangements: with family Additional living arrangements comments: lives with soon to be x- Occupation/Education: occupation Gender identity (if verbalized by the patient): Female Spiritual care concerns: No Agree to blood products: Yes Meds Home Medications and Allergies Home Medications ?Medication ?Instructions ?Recorded ?Confirmed ?Type glucagon 3 mg/actuation nasal 3 mg intranasal ONCE PRN 07/06/21 11/26/24 Rx spray (Baqsimi) hypoglycemia #1 ea duloxetine 30 mg capsule,delayed 30 mg PO BID #180 caps 09/22/21 12/07/24 Rx release betamethasone valerate 0.1 % 1 applic topical BID PRN rash #45 01/22/22 11/26/24 Rx topical cream grams OneTouch Verio test strips (blood #100 ea 05/29/22 11/11/24 Rx sugar diagnostic) inyivbt-cozpqjmxeawvk-ppcfpbbd 250 2 tablet PO Q6H PRN Migraine 06/01/22 11/26/24 History mg-250 mg-65 mg tablet (Excedrin Headache Migraine) diphenhydramine HCl 25 mg capsule 25 mg PO TID PRN itching 06/01/22 11/26/24 History (Benadryl) buspirone 15 mg tablet 15 mg PO BID 10/25/22 12/07/24 History pen needle, diabetic 32 gauge x #300 ea 02/13/23 11/11/24 Rx 32 (BD Ultra-Fine Shantelle Pen Needle) hydroxyzine pamoate 25 mg capsule 50 mg PO Q4H PRN Anxiety 07/25/23 11/26/24 History (Vistaril) prazosin 2 mg capsule 2 mg PO QHS 01/27/24 12/07/24 History albuterol sulfate 90 mcg/actuation 1 puff inhalation Q4H PRN 04/06/24 11/26/24 Rx aerosol inhaler shortness of breath or wheezing #6.7 grams blood-glucose sensor (Dexcom G7 #9 ea 06/04/24 11/11/24 Rx Sensor device) empagliflozin 25 mg tablet 25 mg PO DAILY #90 tabs 06/04/24 12/07/24 Rx (Jardiance) cholecalciferol (vitamin D3) 50 50 mcg PO DAILY 07/24/24 12/07/24 History mcg (2,000 unit) capsule (Vitamin D3) clotrimazole 1 % topical cream 1 applic topical Q12H PRN Rash 07/24/24 11/26/24 History ferrous sulfate 325 mg (65 mg 325 mg PO DAILY 07/24/24 12/07/24 History iron) tablet folic acid 1 mg tablet 1 mg PO DAILY 07/24/24 12/07/24 History lidocaine 3 %-hydrocortisone 0.5 % 1 applic RECTAL BID PRN Pain 07/24/24 11/26/24 History rectal cream vitamin B complex 1 tablet PO DAILY 07/24/24 12/07/24 History doxepin 10 mg capsule 10 mg PO QHS 08/13/24 12/07/24 History atorvastatin 80 mg tablet 80 mg PO QHS 09/21/24 12/07/24 History cariprazine 6 mg capsule (Vraylar) 6 mg PO DAILY 09/21/24 12/07/24 History lisinopril 2.5 mg tablet 2.5 mg PO DAILY #90 tabs 09/23/24 12/07/24 Rx ondansetron 4 mg disintegrating 4 mg PO DAILY PRN Nausea #20 tabs 09/23/24 11/26/24 Rx tablet dexlansoprazole 60 mg 60 mg PO DAILY 1 month #30 caps 09/24/24 12/07/24 Rx capsule,biphase delayed release bisacodyl 10 mg rectal suppository 10 mg RECTAL DAILY PRN 10/20/24 11/26/24 Rx constipation #12 ea bisacodyl 5 mg tablet,delayed 5 mg PO ONCE #20 tabs 10/20/24 11/26/24 Rx release carvedilol 3.125 mg tablet 3.125 mg PO Q12H #180 tabs 10/20/24 12/07/24 Rx insulin regular hum U-500 conc 500 See Rx Instructions .Route 10/20/24 12/07/24 Rx unit/mL(3 mL) subcut pen (Humulin .COMPLEX #39 mL R U-500 (Conc) Insulin Kwikpen) pantoprazole 40 mg tablet,delayed 40 mg PO QAM #90 tabs 10/20/24 12/07/24 Rx release topiramate 200 mg tablet (Topamax) 200 mg PO DAILY #90 tabs 11/09/24 11/26/24 Rx cyclobenzaprine 10 mg tablet 10 mg PO TID PRN muscle spasm #60 11/11/24 11/26/24 Rx tabs sulfamethoxazole 800 1 tablet PO Q12H #14 tabs 11/11/24 11/26/24 Rx mg-trimethoprim 160 mg tablet (Bactrim DS) tirzepatide 10 mg/0.5 mL 10 mg (0.5 mL) subcut WEEKLY #6 mL 11/11/24 11/26/24 Rx subcutaneous pen injector (Mounmedardoro) rizatriptan 5 mg tablet See Rx Instructions PO .COMPLEX 11/20/24 11/26/24 Rx PRN Migraine Headache #10 tabs Allergies Allergy/AdvReac Type Severity Reaction Status Date / Time sunflower oil Allergy Intermediate Hives Verified 12/07/24 12:43 sumatriptan (From Imitrex) AdvReac Intermediate Muscle Verified 12/07/24 12:43 Spasms Vital Signs Vital Signs - 24 hr 12/07/24 12:47 Temperature 97 F L Pulse Rate 67 Respiratory Rate 18 Blood Pressure 109/71 Pulse Oximetry 100 Oxygen Delivery Room Air Exam Const: General: comfortable and no acute distress HENMT: Face/Nose/Sinus: Normal nares present Eyes: General: appearance normal, both eyes and all related structures Neck: Neck: no JVD Resp: Auscultation: clear to auscultation bilaterally Cardio: Rate: regular rate Rhythm: regular rhythm GI: Inspection: non-distended GI Palp: Yes Soft to palpation Skin: General skin exam: normal color Neuro: Speech: normal speech Extrem: General: normal to inspection Psych: Mental Status: mental status grossly normal Assessment and Plan Assessment and plan (1) Rectal bleeding: Code(s): K62.5 - Hemorrhage of anus and rectum Status: Acute Assessment and Plan: colonoscopy if internal hemorrhoids also will use IRC (2) Unspecified cirrhosis of liver: Onset Date: ~2014 Qualifiers: Hepatic cirrhosis type: unspecified hepatic cirrhosis Ascites presence: without ascites Qualified Code(s): K74.60 - Unspecified cirrhosis of liver Code(s): K74.60 - Unspecified cirrhosis of liver Status: Chronic
[2024-12-07 13:37] VITALS: BP 87/53; PULSE 78; RESP 16; O2SAT 100
--- NOTE | 2024-12-07 13:38 | W.PM.PROC2 ---
Procedure Note - Detailed Date of Procedure 12/07/24 Pre-op Diagnosis hemorrhage, hemorrhoids Post-op Diagnosis Same Procedure Performed irc of internal hemorrhoids Surgeon Rl Farfan MD Anesthesia MAC (also had colonoscopy) Findings usign anoscope noted small size internal hemorrhoids, no bleeding, no fissure. Then introduced IRC probe and hemorrhoids treated for 1.5 sec x5 Description of Procedure irc internal hemorrhoids
[2024-12-07 13:47] VITALS: BP 101/71; PULSE 68; RESP 18; O2SAT 100
[2024-12-07 13:53] LABS: Glucose Point of Care 141 mg/dl (65-105)
[2024-12-07 13:57] VITALS: BP 107/65; PULSE 67; RESP 18; O2SAT 100
== END 2024-12-07 14:00 | disposition home or self-care (01) ==
PROVIDERS: PCP Family Medicine; Referring Provider Nurse Practitioner Family; Visit Provider Internal Medicine Gastroenterology
PROC: 0DJD8ZZ Inspection of Lower Intestinal Tract, Via Natural or Artificial Opening Endoscopic (ICD-10-PCS; CPT 45378; principal; 2024-12-07 13:30)
PROC: (CPT 46930; 2024-12-07 13:30)
DX: K92.1 Melena (principal); K63.89 Other specified diseases of intestine; K64.8 Other hemorrhoids; K74.69 Other cirrhosis of liver; Z87.891 Personal history of nicotine dependence; E11.9 Type 2 diabetes mellitus without complications; Z79.4 Long term (current) use of insulin; Z79.84 Long term (current) use of oral hypoglycemic drugs; E66.9 Obesity, unspecified; Z68.36 Body mass index [BMI] 36.0-36.9, adult
CPT/HCPCS: 45385; 46930; 82948; 88305; J2704; J7120

== ENCOUNTER 2025-01-12 17:31 | Emergency (ER) | payer OTHER, SELFPAY ==
--- NOTE | ~2025-01-12 | XR_ITS ---
Exam: Abdomen 1V HISTORY: right flank/right low abdomen pain COMPARISON: Reference is made to a CT examination of the abdomen and pelvis dated 10/06/2024 TECHNIQUE: Supine images of the abdomen FINDINGS: Bowel gas pattern is non-obstructive. There is no free air or deep sulci. Redemonstration of a 6.7 mm stone within the upper pole of the right kidney. No additional stones are appreciated. IMPRESSION: Nonspecific, nonobstructive bowel gas pattern. 6.7 mm calculus within the upper pole of the right kidney, unchanged from 10/06/2024 Reviewed, dictated and finalized at location A.
--- NOTE | 2025-01-12 17:38 | ED_ITS ---
HPI - Female Genitourinary General Chief complaint: Urogenital-Female Stated complaint: Urinary issue Time Seen by Provider: 01/12/25 17:33 Source: patient Mode of arrival: ambulatory Limitations: no limitations History of Present Illness HPI Narrative: Beulah is a 44-year-old female patient presenting to the clinic today with complaints of possible UTI. She reports 3-4 days ago she developed burning with urination, frequency, and urgency with low urine output. Is also reporting right flank/low back pain that is radiating into the right abdomen. History of hysterectomy. History kidney stones Related Data Home Medications ?Medication ?Instructions ?Recorded ?Confirmed ?Last Taken ?Type upneqvw-zrmjrwikduydq-qvyymsbg 250 2 tablet PO Q6H PRN Migraine 06/01/22 11/26/24 Unknown History mg-250 mg-65 mg tablet (Excedrin Headache Migraine) diphenhydramine HCl 25 mg capsule 25 mg PO TID PRN itching 06/01/22 11/26/24 Unknown History (Benadryl) buspirone 15 mg tablet 15 mg PO BID 10/25/22 12/07/24 12/07/24 History hydroxyzine pamoate 25 mg capsule 50 mg PO Q4H PRN Anxiety 07/25/23 11/26/24 Unknown History (Vistaril) prazosin 2 mg capsule 2 mg PO QHS 01/27/24 12/07/24 12/06/24 History cholecalciferol (vitamin D3) 50 50 mcg PO DAILY 07/24/24 12/07/24 12/07/24 History mcg (2,000 unit) capsule (Vitamin D3) clotrimazole 1 % topical cream 1 applic topical Q12H PRN Rash 07/24/24 11/26/24 Unknown History ferrous sulfate 325 mg (65 mg 325 mg PO DAILY 07/24/24 12/07/24 11/23/24 History iron) tablet lidocaine 3 %-hydrocortisone 0.5 % 1 applic RECTAL BID PRN Pain 07/24/24 11/26/24 08/03/24 History rectal cream vitamin B complex 1 tablet PO DAILY 07/24/24 12/07/24 12/07/24 History doxepin 10 mg capsule 10 mg PO QHS 08/13/24 12/07/24 12/06/24 History cariprazine 6 mg capsule (Vraylar) 6 mg PO DAILY 09/21/24 12/07/24 12/07/24 History Allergies Allergy/AdvReac Type Severity Reaction Status Date / Time sunflower oil Allergy Intermediate Hives Verified 01/12/25 17:34 sumatriptan (From Imitrex) AdvReac Intermediate Muscle Verified 01/12/25 17:34 Spasms Review of Systems Review of Systems: Pertinent positives per HPI. Patient denies any fever, chills, rash, headache, visual changes, dizziness, cough, runny nose, sore throat, shortness of breath, chest pain, palpitations, nausea, vomiting, diarrhea, constipation PMFSH Past Medical History Medical History Type 2 diabetes mellitus (~2006) Rectal bleeding Left knee pain Medial meniscus tear Chronic nausea Gastroesophageal reflux disease Esophageal varices determined by endoscopy Irritable bowel syndrome with alternating bowel habits Portal hypertensive gastropathy Cirrhosis Bipolar 2 disorder Alopecia Cat scratch of forearm Body mass index (BMI) 35 or more (05/05/19) Vaginal yeast infection Type 2 diabetes mellitus with hyperglycemia Benign essential hypertension Abnormal vaginal bleeding Abnormal CT of brain Nausea & vomiting Hx of renal calculi (~07/2021) Portal hypertension (~07/2021) Chronic GERD Ganglion cyst Vitamin D deficiency Dyslipidemia BMI 40.0-44.9, adult Anxiety and depression HTN (hypertension) Type 2 diabetes mellitus with other circulatory complications (~2006) Avulsion fracture of right calcaneus with delayed healing (~2016) Other and unspecified hyperlipidemia (~2018) Hypertension complicating diabetes (~2013) Iron deficiency anemia due to chronic blood loss (~2016) 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: [facility] Microalbuminuria due to type 2 diabetes mellitus (~2017) Migraine without aura, not intractable, with status migrainosus (~1992) meds tried: midrin (helpful), imitrex (no help), zomig, topamax (helpful) Recurrent major depressive disorder in partial remission (~1992) Renal cyst, acquired (~2011) Hyperlipidemia associated with type 2 diabetes mellitus (~2018) Unspecified cirrhosis of liver (~2014) LOVE Surgical History Surgical History History of urethral stent (~07/2021) H/O: hysterectomy H/O left knee surgery Status post right foot surgery (~2017) History of cholecystectomy (~2018) Family History Family History Father Hypertension Cerebrovascular accident Family history of diabetes mellitus in first degree relative Diabetes mellitus Mother Hypertension Other Family history of Alzheimer's disease Family history of cardiovascular disease Family history of chronic obstructive pulmonary disease Family history of congestive heart failure Family history of hearing loss Family history of migraine headaches Family history of obesity Social History Social History Social History: , no children. Unemployed. Caffeine-rarely Smoking packs per day: 1 Smoking cigarettes per day: 20.0 Years smoked: 13 Smoking pack-years: 13.00 Smoking status: Former smoker Tobacco type: e-cigarettes/vaping Smoking end date: 10/14/06 Alcohol intake: never Substance use: never Substance use type: does not use Last use: Quit 1996 Do You Feel Safe in your Home?: Yes Lack of Transportation: No Lack of Food: Never True Current Housing: I Have Housing Concerned About Future Housing: No Difficulty Paying Gas/Electric Bills: No Difficulty Paying for Meds: No Currently Unemployed: Decline to Answer Education: Associate Degree Living arrangements: with family Additional living arrangements comments: lives with soon to be x- Occupation/Education: occupation Gender identity (if verbalized by the patient): Female Spiritual care concerns: No Agree to blood products: Yes Comments At the time of my signature, I reviewed and agree with the nursing past medical, surgical, social, and family history. There is no relevant family history pertinent to the patient complaint. Exam Narrative: General: Well-developed, obese, in no apparent distress. Head: Normocephalic, atraumatic. Cardio: Regular rate and rhythm, s1 and s2 normal, no murmur appreciated. Resp: Clear to auscultation bilaterally, no rhonchi, rales, wheezing or rubs. Abdomen: Soft, pliable, bowel sounds present in all quadrants, right lower tender to palpation, no organomegly, right CVAT tenderness. Course Course Emergency Course: Portions of this record may have been created with voice recognition software. Level of Care: Express Care Visit Vital Signs Vital signs: Vital signs reviewed MDM - Female Genitourinary MDM Narrative Medical decision making narrative: At the time of visit patient is resting comfortably on the exam table. Patient appears to be nontoxic. Labs: UA dip positive for glucose, bili, blood, protein, and uro bili. Negative for leukocytes or nitrates. We will send urine for culture Diagnostics: KUB x-ray was performed and shows a nonobstructive bowel gas pattern. Has a 6.7 mm nonobstructing kidney stone in the right upper pole of the kidney Plan: I suspect patient has right flank pain and right-sided abdominal pain. Will transfer patient to the emergency room for further evaluation. Patient agrees to transfer and would like to be transfer to [facility]. Contacted Dr. Gómez for continuity of care and he accepts patient for transfer. Patient to be transported by private car. Differential Diagnosis Differential diagnosis: Likely urinary tract infection and cystitis Lab Data Labs: Lab Results 01/12/25 Range/Units 17:45 POC Urine Color Brown POC Urine Clarity Cloudy POC Urine pH 6.0 POC Ur Specif [place] 1.025 POC Urine Protein 2+ (Negative) POC Ur Glucose (UA) 3+ (Negative) POC Urine Ketones Negative (Negative) POC Urine Blood 3+ (Negative) POC Urine Nitrite Negative (Negative) POC Urine Bilirubin 1+ (Negative) POC Urine Urobilinogen 0.2 POC U Leukocyte Esteras Negative (Negative) Imaging Data Radiologist's impression: ITS Impressions Abdomen X-Ray 01/12/25 18:40 IMPRESSION: Nonspecific, nonobstructive bowel gas pattern. 6.7 mm calculus within the upper pole of the right kidney, unchanged from 10/06/2024 Discharge Plan Discharge Clinical Impression: Right flank pain, Right sided abdominal pain, Symptoms of urinary tract infection Patient Disposition: Acute Care Hospital Condition: Stable Patient Language: Erit[place] Prescriptions: No Action (DME) OneTouch Verio test strips Strip See Rx Instructions .Route Qty: 100 11RF Rx Instructions: Monitor glucose 3-4 times a day prazosin 2 mg capsule 2 mg PO QHS doxepin 10 mg capsule 10 mg PO QHS (DME) Dexcom G7 Sensor Device See Rx Instructions .ROUTE .MEDSUPPLY Qty: 9 3RF Rx Instructions: Use to monitor glcuose Vraylar 6 mg capsule 6 mg PO DAILY Baqsimi 3 mg/actuation spray,non-aerosol 3 mg intranasal ONCE PRN (Reason: hypoglycemia) Qty: 1 0RF Rx Instructions: as a single dose buspirone 15 mg tablet 15 mg PO BID Humulin R U-500 (Conc) Kwikpen 500 unit/mL (3 mL) insulin pen See Rx Instructions .ROUTE .COMPLEX Qty: 39 0RF Dose Instruction: INJECT 70 UNITS SUBCUTANEOUSLY THREE TIMES DAILY WITH MEALS Rx Instructions: Sliding scale BID-TID carvedilol 3.125 mg tablet 3.125 mg PO Q12H Qty: 180 1RF Rx Instructions: must administer with a meal/food bisacodyl 10 mg suppository 10 mg RECTAL DAILY PRN (Reason: constipation) Qty: 12 0RF Rx Instructions: Insert 1 suppository in rectum if no BM in 72 hours bisacodyl 5 mg tablet,delayed release (DR/EC) 5 mg PO ONCE Qty: 20 0RF Rx Instructions: Take one tablet if no BM in 24 hours pantoprazole 40 mg tablet,delayed release (DR/EC) 40 mg PO QAM Qty: 90 0RF diphenhydramine HCl [Benadryl] 25 mg Capsule 25 mg PO TID PRN (Reason: itching) Excedrin Migraine 250-250-65 mg Tablet 2 tablet PO Q6H MDD 4 PRN (Reason: Migraine Headache) clotrimazole 1 % cream 1 applic topical Q12H PRN (Reason: Rash) lidocaine HCl-hydrocortison ac 3-0.5 % cream 1 applic RECTAL BID PRN (Reason: Pain) ferrous sulfate 325 mg (65 mg iron) Tablet 325 mg PO DAILY vitamin B complex [B Complex-Vitamin B12] Tablet 1 tablet PO DAILY cholecalciferol (vitamin D3) [Vitamin D3] 50 mcg (2,000 unit) Capsule 50 mcg PO DAILY duloxetine 30 mg capsule,delayed release(DR/EC) 30 mg PO BID Qty: 180 1RF betamethasone valerate 0.1 % cream 1 applic topical BID PRN (Reason: rash) Qty: 45 1RF (DME) pen needle, diabetic [BD Ultra-Fine Shantelle Pen Needle] 32 gauge x 5/32 needle See Rx Instructions .ROUTE .MEDSUPPLY Qty: 300 1RF Rx Instructions: three times daily hydroxyzine pamoate [Vistaril] 25 mg capsule 50 mg PO Q4H PRN (Reason: Anxiety) albuterol sulfate 90 mcg/actuation HFA aerosol inhaler 1 puff INHALATION Q4H PRN (Reason: shortness of breath or wheezing) Qty: 6.7 1RF lisinopril 2.5 mg tablet 2.5 mg PO DAILY Qty: 90 1RF ondansetron 4 mg tablet,disintegrating 4 mg PO DAILY PRN (Reason: Nausea) Qty: 20 0RF dexlansoprazole 60 mg capsule,biphase delayed releas 60 mg PO DAILY 30 Days Qty: 30 12RF topiramate [Topamax] 200 mg tablet 200 mg PO DAILY Qty: 90 0RF Mounjaro 10 mg/0.5 mL pen injector 10 mg subcut WEEKLY Qty: 6 1RF cyclobenzaprine 10 mg tablet 10 mg PO TID PRN (Reason: muscle spasm) Qty: 60 1RF rizatriptan 5 mg tablet See Rx Instructions PO .COMPLEX PRN (Reason: Migraine Headache) Qty: 10 5RF Rx Instructions: take 1 tab at onset of headache; if no relief may repeat 1 tab after at least 2 hrs; max = 3 tabs/24 hr PO folic acid 1 mg tablet 1 mg PO DAILY Qty: 90 1RF atorvastatin 80 mg tablet 80 mg PO QHS Qty: 90 1RF Jardiance 25 mg tablet 25 mg PO DAILY Qty: 90 1RF Follow-up/Referrals: Karin Hoyt MD [Primary Care Provider] - Time of Disposition: 18:59 Quality NIHSS Nursing Documentation ED NIHSS nursing documentation: reviewed/agree
[2025-01-12 17:45] VITALS: BP 103/62; PULSE 72; RESP 20; TEMP 36; O2SAT 100
[2025-01-12 17:59] LABS: EDUAAPPEAR Cloudy; EDUABILI 1+ (Negative); EDUABLOOD 3+ (Negative); EDUACOLOR1 Brown; EDUAGLUCOSE 3+ (Negative); EDUAKETONE Negative (Negative); EDUALEUKO Negative (Negative); EDUANITRATE Negative (Negative); EDUAPROTEIN 2+ (Negative); EDUASPGRAVITY 1.025; EDUAUROBILI 0.2
== END 2025-01-12 18:50 | disposition short-term general hospital (02) ==
PROVIDERS: Emergency Provider Nurse Practitioner Family; PCP Family Medicine
DX: R10.31 Right lower quadrant pain (principal); R10.9 Unspecified abdominal pain; R30.0 Dysuria; R35.0 Frequency of micturition; R39.15 Urgency of urination; E11.9 Type 2 diabetes mellitus without complications; Z79.84 Long term (current) use of oral hypoglycemic drugs; Z79.85 Long-term (current) use of injectable non-insulin antidiabetic drugs; K21.9 Gastro-esophageal reflux disease without esophagitis; K76.6 Portal hypertension; K31.89 Other diseases of stomach and duodenum; K74.60 Unspecified cirrhosis of liver; L65.9 Nonscarring hair loss, unspecified; I10 Essential (primary) hypertension; E55.9 Vitamin D deficiency, unspecified; F41.9 Anxiety disorder, unspecified; E78.49 Other hyperlipidemia; D50.0 Iron deficiency anemia secondary to blood loss (chronic); F17.290 Nicotine dependence, other tobacco product, uncomplicated
CPT/HCPCS: 74018; 81003; 87086; 99213; G0463

== ENCOUNTER 2025-01-12 19:15 | Emergency (ER) | payer OTHER, SELFPAY ==
--- NOTE | ~2025-01-12 | CT_ITS ---
CLINICAL INDICATION: Right flank pain COMPARISON: 10/06/2024. TECHNIQUE: Multiple contiguous axial images of the abdomen and pelvis were performed without the admi nistration of intravenous contrast The dose-length product (DLP) was 279.23 mGy-cm. Automated exposure control and iterative reconstruction technique were employed. FINDINGS/OBSERVATIONS: Visualized lower thorax: The bilateral lung bases are clear. The heart is of normal size, without pericardial effusion. Liver: The liver demonstrates homogeneous attenuation and is not enlarged. Gallbladder and biliary system: The gallbladder is surgically absent. Pancreas: Limited evaluation of the pancreas secondary to the lack of intravenous contrast. Spleen: The spleen demonstrates homogeneous attenuation and is not enlarged Kidneys: Redemonstration of an 11 mm calculus within the upper pole of the right kidney. No right-sided hydroureteronephrosis. Redemonstration of a lower pole left renal cyst, unchanged from prior. Adrenal glands: Unremarkable. Gastrointestinal tract: Colonic diverticulosis without surrounding inflammatory change. Appendix: The proximal appendix is of normal caliber (axial series, images 101 through 118). Vasculature: Unremarkable. Lymph nodes: Limited evaluation without intravenous contrast. Pelvic structures: The bladder is decompressed, and otherwise unremarkable. The uterus is either surgically absent or markedly atrophic. Body wall and musculoskeletal: Degenerative disease within the lumbosacral spine, most prominent at the level of L5/S1. IMPRESSION: Redemonstration of a large nonobstructing calculus within the upper pole of the right kidney. No acute intra-abdominal pathology, as detailed above. Reviewed, dictated and finalized at location A.
--- OUTSIDE RECORDS SUMMARY | 2025-01-12 19:17 | XMS_ITS | Clinical Summary ---
Author Organization [facility] Address [address] [place] [address] Phone Care Team Providers Care Agency Owner Name Role Phone Ric Malik MD Unavailable [phone] Ric Malik MD Unavailable [phone] Natacha Hoyt MD Primary Care Provider Allergies Active Allergy Reactions Criticality Noted Date Comments Sumatriptan Other (see Comments) 03/15/2023 [place] Oil Hives,Nausea,Vomitin g,Other (see Comments) Low 04/11/2017 [...] lymphadenopathy 04/11/2017 Hepatosplenomegaly 04/11/2017 Liver lesion 04/11/2017 Family History Medical History Relation Name Comments [...] Comments Blood Pressure 118/72 09/24/2024 1:11 PM SCALE CLERK Pulse 82 09/24/2024 1:11 PM SCALE CLERK Temperature 36.4 C (97.5 F) 09/24/2024 1:11 PM SCALE CLERK Respiratory Rate 18 09/24/2024 1:11 PM SCALE CLERK Oxygen Saturation 99% 09/24/2024 1:11 PM SCALE CLERK Inhaled Oxygen Concentration - - Weight 87.5 kg (193 lb) 09/24/2024 1:11 PM SCALE CLERK Height 157.5 cm (5' 2 ) 09/24/2024 1:11 PM SCALE CLERK Body Mass Index 35.3 09/24/2024 1:11 PM SCALE CLERK Plan of Treatment Upcoming Encounters Date Type Department Care Team (Late st Contact Info) Description 01/21/2025 1:00 PM CDT Office Visit [facility] [address] [address] Ric Malik MD [address] [place], [place] [id number] Health Maintenance Due Date Last Done Comments [...] on patient's age to complete this topic Insurance MEDICAID [employer] Care Teams Agency Owner Relationship Specialty Start Date End Date Natacha Hoyt MD [address] [facility] [address] [place] [address] PCP - General Family Medicine 08/29/23 Ric Malik MD [address] [place] [address] Consulting Physician Oncology 05/22/22 Ric Malik MD [address] [place] [address] Consulting Physician Oncology 08/28/23
--- OUTSIDE RECORDS SUMMARY | 2025-01-12 19:17 | XMS_ITS | Patient Health Record ---
Author Organization [facility] Address [address] [place] [address] Care Team Providers Care Cottage Attendant Name Role Phone Allie Lopez Primary Care Provider [phone] Allergies Allergen (clinical drug ingredient) Drug/Non Drug Allergy documented on EMR Reaction Allergy Type Onset Date Status [place] Oil sunflower oil (uncoded) rash Allergy Active [...] Status Risk Notes Problem Generalized anxiety disorder (47754671) Generalized anxiety disorder (F41.1) Active confirmed Problem Bipolar 1 disorder (991814943) Bipolar 1 disorder (F31.9) Active confirmed Problem Tobacco user (190406215) Nicotine addiction (F17.200) Active confirmed Encounters Encounter Location Date Provider Diagnosis [place] [address] [place] [address] 01/21/2024 Allie Acme Bipolar 1 disorder F31.9 [facility] [address] [address] 01/29/2024 Allie John Bipolar 1 disorder F31.9 [facility] [address] [place] [address] 02/25/2024 Allie Acme Bipolar 1 disorder F31.9 [place] [address] [address] 04/22/2024 Allie John Bipolar 1 disorder F31.9 [facility] [address] [place] [address] 06/18/2024 Allie Acme Bipolar 1 disorder F31.9 [facility] [address] [place] [address] 08/18/2024 Allie Acme Bipolar 1 disorder F31.9 and Nicotine addiction F17.200 [place] [address] [address] 09/29/2024 Allie Acme Bipolar 1 disorder F31.9 and Nicotine addiction F17.200 [facility] [address] [place] [address] 12/01/2024 Allie John Bipolar 1 disorder F31.9 [facility] [address] [place] [address] 01/30/2024 Allie John [facility] [address] [place] [address] [facility] [address] [place] [address] 04/13/2024 Allie Lopez [address] [place] [address] 05/08/2024 Allie Lopez Bipolar 1 disorder F31.9 [facility] [address] [place] [address] 07/28/2024 Allie Lopez [facility] [address] [place] [address] 10/12/2024 Allie Lopez Assessments Encounter Date Diagnosis (ICD Code) Assessment Notes Treatment Notes Treatment Clinical Notes Section Notes 01/21/2024 Bipolar 1 disorder (ICD-10 - F31.9) Has RF's through 02/29/24. SEnding only prazosin today for nightmares. Hold buspar x 7 days to see if irritablity improves and follow up on 01/28/24. 01/29/2024 Bipolar 1 disorder (ICD-10 - F31.9) increased vraylar today. Discussed bipolar spectrum DX And that irritablity is part of the symptom pattern of her brain disorder. DIscussed & discouraged negative self talk 02/25/2024 Bipolar 1 disorder (ICD-10 - F31.9) 04/22/2024 Bipolar 1 disorder (ICD-10 - F31.9) 05/08/2024 Bipolar 1 disorder (ICD-10 - F31.9) 06/18/2024 Bipolar 1 disorder (ICD-10 - F31.9) CancelRx Response got Denied on 2024-09-28 14:02:39 for 'Doxepin HCl 6 MG Tablet'Pharmacy Notes: Patient unknown to the Prescriber. 08/18/2024 Bipolar 1 disorder (ICD-10 - F31.9) 08/18/2024 Nicotine addiction (ICD-10 - F17.200) 09/29/2024 Bipolar 1 disorder (ICD-10 - F31.9) 12/01/2024 [...] in mood or behavior. Confirmed knowledge of [employer] hotline [phone] for clients 20 and under and [place] [facility] line [phone] and awareness of 988. SSRI Discussed possible side effects: GI upset, headache, decreased libido/anorgasmia, weight gain, signs of serotonin syndrome and risk of activation to suicidality Plan Of Treatment No Information Insurance Providers Payer Name Payer Address Payer Phone Subscriber Number Group Number Insured Name Patient Relationship to Insured Coverage Start Date Coverage End Date [facility] Attn Claims Department [address] [place] [id number] Beulah Fung Self - patient is the insured 3 [facility] Attn Claims Department [address] [place] [address] [id number] Beulah Fung Self - patient is the insured 3 Medical (General) History Medical History History ICD Code type II diabetes hypertension nephrolithiasis LOVE migraine headache Surgical History Surgery Date(Month/Year) hysterectomy due to fibroids 2018 cholecystectomy carpal/cubital tunnel Hospitalization History Reason Date(Month/Year) suicide attempt by self harm and attempt ed overdose 10/02
--- OUTSIDE RECORDS SUMMARY | 2025-01-12 19:18 | XMS_ITS | Clinical Summary ---
Author Organization [facility] Quick Key Address [address] [place] [address] Care Team Providers Care Cell Maker Name Role Phone Sadia Morris Primary Care Provider [phone] Sadia Morris Unavailable Source Comments [facility],non-owned Affiliates and Associated Physician Practices is amultiple site organization consisting of ambulatory clinics and hospital sitesin [place], [place], [place] and [place]. This disclosure is being madepursuant to the Care Everywhere program and may not contain all information available regarding this patient. Last updated 18.[facility] Allergies Active Allergy Reactions Criticality Noted Date Comments Sumatriptan Myalgias 03/15/2023 Sumatriptan Headache 10/07/2024 [place] Oil Rash,Itching,Skin Reactions Medium 08/01/2017 actual sunflowers themselves [place] Oil Nausea and/or Vomiting 10/07/2024 Medications * Be aware that medications may not be up to date on this document. Alwaysverify current medications with the patient. Medication Sig Dispensed Refills Start Date End Date Status cyclobenzaprine (FLEXERIL) 10 MG tablet Take 1 (one) tablet by mouth 3 times daily as needed for Muscle Spasms 08/01/20 17 Active diphenhydrAMINE (BENADRYL) 25 MG tablet Take 1 (one) tablet by mouth every 6 hours as needed for Itching, Allergies or Insomnia 08/01/20 17 Active aspirin-acetami nophen-caffeine 250-250-65 MG tablet Take 1 (one) tablet by mouth every 6 hours as needed for Headache 08/01/20 17 Active LISINOPRIL PO Take 2.5 mg by mouth once daily Active DULoxetine (CYMBALTA) 30 MG capsule Take 1 (one) capsule by mouth 2 times daily 02/08/20 20 Active BD VEO INSULIN SYRINGE U/F 31G X 15/64 1 ML syringes USE DIRECTED TWICE DAILY WITH INSULIN 02/09/20 Active insulin NPH (HumuLIN N; NovoLIN N) vial Inject 70 (seventy) Units subcutaneously 3 times daily Active Dexlansoprazole (DEXILANT PO) Take 60 mg by mouth once daily Active hydrOXYzine pamoate (Vistaril) 25 MG capsule Take 1 (one) capsule by mouth 4 times daily as needed Active Glucagon 3 MG/DOSE POWD [place] 3 mg into the nose as needed (hypoglycemia) Active clotrimazole (Lotrimin AF) 1 % cream Apply 1 applicatorful to affected area 2 times daily as needed Active albuterol HFA (Proventil; Ventolin; Proair) 108 (90 Base) MCG/ACT inhaler Inhale 1 (one) puff by mouth every 6 hours as needed for Wheezing or Shortness of Breath 03/08/20 21 Active betamethasone valerate (Valisone) 0.1 % cream 01/25/20 22 Active topiramate (Topamax) 200 MG tablet Take 1 (one) tablet by mouth once daily 07/29/20 22 Active doxepin (SINEquan) 10 MG capsule Take 1 (one) capsule by mouth at bedtime Active tirzepatide (Mounjaro) 10 MG/0.5ML injection Inject 10 (ten) mg subcutaneously every 7 days Active busPIRone (Buspar) 15 MG tablet Take 1 (one) tablet by mouth 2 times daily 60 tablet 10/10/20 24 Active hydrOXYzine HCl (Atarax) 50 MG tablet Take 1 (one) tablet by mouth 3 times daily as needed for Itching 30 tablet 10/10/20 24 Active ondansetron, disintegrating, (Zofran ODT) 4 MG tablet Take 1 (one) tablet by mouth every 6 hours as needed for Nausea/Vomiting Allow tablet to dissolve on the tongue 30 tablet 10/10/20 24 Active atorvastatin (Lipitor) 80 MG tablet Take 1 (one) tablet by mouth at bedtime 30 tablet 10/10/20 24 Active prazosin (Minipress) 2 MG capsule Take 1 (one) capsule by mouth at bedtime 30 capsule 10/10/20 24 Active bisacodyl (Dulcolax) 10 MG suppository Insert 1 (one) suppository into the rectum once as needed for Constipation (if no BM 24 hours after oral bisacodyl) 30 suppository 10/10/20 24 Active polyethylene glycol 3350 (Miralax) 17 g packet Take 17 (seventeen) g by mouth once daily as needed for Constipation 30 packet 10/10/20 24 Active pantoprazole EC (Protonix) 40 MG tablet Take 1 (one) tablet by mouth once daily 30 tablet 10/10/20 24 Active insulin NPH pen Inject 30 (thirty) Units subcutaneously 2 times daily, before breakfast and supper 3 mL 10/10/20 24 Active Ferrous Sulfate (IRON PO) Active Continuous Glucose Sensor (Dexcom G7 Sensor) [employer] APPLY 1 SENSOR TOPICALLY, CHANGE AND REPLACE EVERY 10 DAYS. USE TO MONITOR GLUCOSE. 09/01/20 24 Active nystatin (Mycostatin) 956511 UNIT/GM cream Apply to affected area 2 times daily 11/24/19 25 Active rizatriptan (Maxalt) 5 MG tablet Take 1 (one) tablet by mouth once 11/20/19 25 Active carvedilol (Coreg) 6.25 MG tablet Take 1 (one) tablet by mouth 2 times daily with morning and evening meal 180 tablet 3 12/16/19 25 Active cloNIDine (CATAPRES) 0.1 MG tablet Take 0.5 (one-half) tablet by mouth BID 08/01/20 17 025 Discontinued(Li st Clean-Up) fluticasone propionate (FLONASE) 50 MCG/ACT nasal spray [place] 2 (two) sprays into each nostril once daily as needed (allergies) 025 Discontinued( st Clean-Up) ondansetron, disintegrating, (ZOFRAN ODT) 4 MG tablet Take 1 tablet by mouth every 6 hours as needed 120 tablet 3 10/22/19 20 025 Discontinued(Li st Clean-Up) busPIRone (Buspar) 15 MG tablet Take 1 (one) tablet by mouth 2 times daily 025 Discontinued(Li st Clean-Up) sucralfate (Carafate) 1 GM tablet Take 1 (one) tablet by mouth 4 times daily - before meals & nightly 025 Discontinued(Li st Clean-Up) atorvastatin (Lipitor) 80 MG tablet Take 1 (one) tablet by mouth at bedtime 08/15/20 025 Discontinued(Li st Clean-Up) propranolol (Inderal) 10 MG tablet Take 2 (two) tablets by mouth 2 times daily 120 tablet 07/08/20 24 025 Discontinued(Li st Clean-Up) carvedilol (Coreg) 3.125 MG tablet Take 1 (one) tablet by mouth 2 times daily with morning and evening meal 30 tablet 10/10/20 025 Discontinued bisacodyl EC (Dulcolax) 5 MG tablet Take 1 (one) tablet by mouth once as needed for Constipation (no BM for 72 hours) 30 tablet 10/10/20 025 Discontinued(Li st Clean-Up) insulin NPH pen Inject 20 (twenty) Units subcutaneously 2 times daily, before breakfast and supper 3 mL 10/11/20 025 Discontinued(Li st Clean-Up) Active Problems Problem Noted Date Diagnosed Date Bipolar disorder 09/12/2024 Iron deficiency anemia due to chronic blood loss 10/09/2023 Secondary esophageal varices with bleeding 05/31 Calculus of kidney 07/17/2021 Liver lesion 06/04/2019 LUQ abdominal pain 12/04/2018 Obesity 11/16/2017 Gastro-esophageal reflux disease without esophag itis 11/16/2017 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 Hyperlipidemia 11/16/2017 Type 2 diabetes mellitus without complications 0 11/16/2017 Resolved Problems Problem Noted Date Diagnosed Date Resolved Date Acute gastrointestinal bleeding 10/06/2024 12/15/2024 Hepatic cirrhosis, unspecifi ed hepatic cirrhosis type, unspecified whether ascites present 03/27/2022 05/31/2022 Gastrointestinal hemorrhage, unspecified gastrointestinal hemorrhage type 03/27/2022 025 Cirrhosis of liver 11/16/2017 2 Overview (01/13/2018): Liver biopsy performed during cholecystectomy noted evidence of steatohepatitis with bridging fibrosis. 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 (Primary Dx); Liver lesion; Secondary esophageal varices with bleeding; Iron deficiency anemia due to chronic blood loss 12/15/2024 Travel 11/17/2024 10:29 AM FEATHER DUSTER WINDER Anesthesia Event [facility] [address] [place] [phone] Denis Hagan MD Dobbs, Romina Adams, GOLF CART ASSEMBLER-DOCTOR OF NURSING PRACTICE 11/17/2024 10:00 AM FEATHER DUSTER WINDER - 11/17/2024 10:30 AM FE[employer]ER DUSTER WINDER Surgery [facility] [address] [place] [phone] Chente Ludwig MD EGD +/- banding 11/17/2024 8:52 AM FEATHER DUSTER WINDER - 11/17/2024 11:45 AM FE[employer]ER DUSTER WINDER Hospital Encounter [facility] [address] [place] [phone] Chente Ludwig MD Surgery General Discharge Disposition: Home or Self Care 11/17/2024 Travel 11/12/2024 Patient Outreach [facility] [address] [place] [address] Rosi Jj, RN 10/16/2024 Travel from Last 3 Months Immunizations Name [...] and heating? Not hard at all 10/07/2024 [facility] - Occupational Stress [...] any time in the past 12 m [facility], were you homeless or living in a prison (including now)? No 10/07/2024 Sex and Gender Information Value Date Recorded Sex Assigned at Female 04/21/2024 2:38 PM CDT Gender Identity Female 04/21/2024 2:38 PM CDT Sexual Orientation Straight 04/21/2024 2: 38 PM CDT Last Filed Vital Signs Vital Sign Reading Time Taken Comments Blood Pressure 129/87 12/15/2024 9:08 AM [facility]ER [facility]ER Pulse 88 12/15/2024 9:08 AM FEATHER DUSTER WINDER Temperature 36.1 C (97 F) 12/15/2024 9:08 AM FEATHER DUSTER WINDER Respiratory Rate 14 11/17/2024 11:30 AM FEATHER DUSTER WINDER Oxygen Saturation 99% 12/15/2024 9:08 AM FEATHER DUSTER WINDER Inhaled Oxygen Concentration - - Weight 93.3 kg (205 lb 9.6 oz) 12/15/2024 9:08 A M [employer]ATHER DUSTER WINDER Height 157.5 cm (5' 2 ) 12/15/2024 9:08 AM FEATHER DUSTER WINDER Body Mass Index 37.6 12/15/2024 9:08 AM FE[employer]ER [facility]USTER WINDER Plan of Treatment Upcoming Encounters Date Type Department Care Team (Latest Contact Info) Description 02/01/2025 9:00 AM CDT Hospital Encounter [facility] [address] [place] [phone] Salomon Sapp MD [address] [place] [address] [address] [place] [address] Surgery General 02/01/2025 9:00 AM CDT - 02/01/2025 9:30 AM CDT Surgery [facility] [address] [place] [phone] Salomon Sapp MD [address] [place] [address] [address] [place] [address] EGD +/- banding w/ marilee 03/19/2025 11:30 AM CDT Appointment [facility] MRI [address] [place] [phone] Salomon Sapp MD [address] [place] [address] [address] [place] [address] 05/07/2025 12:30 PM CDT Office Visit [facility] - GI [address] [place] [phone] Salomon Sapp MD [address] [place] [address] [address] [place] [address] 09/24/2025 9:30 AM FEATHER DUSTER WINDER Appointment [address] [phone] Salomon Sapp MD [address] [place] [address] [address] [place] [address] 09/24/2025 10:30 AM FE[employer]ER DUSTER WINDER Office Visit [facility] - GI [address] [place] [phone] Salomon Sapp MD [address] [place] [address] [address] [place] [address] Scheduled Procedures Name Priority Associated Diagnoses Date/Ti me ESOPHAGOGASTRODUODENOSCOPY ( EGD) DIAGNOSTIC Esophageal varices without bleeding, unspecified esophageal varices type (HCC) 02/01/2025 9:00 AM CDT Health Maintenance Due Date Last Done Comments [...] DIABETES-FOOT EXAM WITH MONOFILAMENT 12/04/2018 COVID-19 VACCINE ( - 2024-25 season) 2024 INFLUENZA VACCINE (#1) 2024 07/15/2020, 2018 DIABETES - URINE PROTEIN SCREENING 10/14/2024 DIABETES-HGB A1C 04/08/2025 10/08/2024, , 06/02/2021, Additional history exists DIABETES-SERUM CREATININE 10/11/20252023, 10/10/2024, 10/09/2024, Additional history exists ZOSTER VACCINE (1 of 2) 2028 COLON MONITORING 08/27/2032 08/27/2022 COLONOSCOPY - COLON CA SCREENING 08/27/2032 08/27/2022 Colorectal Cancer Screening 08/27/2032 HEPATITIS C SCREENING Completed 11/14/2017 HEPATITIS A VACCINE Completed 06/04/2019, 01/01/2019, 12/04/2018 HEPATITIS B VACCINE Completed 06/04/2019, 01/01/2019, 12/04/2018 HIB VACCINE Aged Out No longer eligi ble based on patient's age to complete this topic HPV VACCINE Aged Out No longer eligi ble based on patient's age to complete this topic MENINGOCOCCAL (Group B) VACCINE SHARED DECISION-MAKING Aged Out No longer eligible based on patient's age to complete this topic MENINGOCOCCAL GROUPS A/C/Y/W VACCINE Aged Out No longer eligible based on patient's age to complete this topic Goals Goal Patient Goal Type Associated Problems Recent Progress Patient-Stated? Author Medication Management General On track( 025 9:52 AM FEATHER DUSTER WINDER) Mary Kay Andrade, RN Note: Expected end date: ongoing Interventions: Take all medications as prescribed Let your doctor know right away about any changes in your medications Make sure to request a refill of your medication at least one week prior to your last dose Procedures Procedure Name Priority Date/Time Associated Diagnosis Comments EGD Routine 11/17/2024 10:28 AM [facility] [place] EGD FLEX TRANSORAL DX 11/17/2024 10:24 AM [employer]ER WINDER Esophageal varices without bleeding, unspecified esophageal varices type Special Needs Repeat EGD 4 to 6 weeks Received: Today Espinoza Parra MD P [facility] Schedulers - Endoscopy Pool Dear Scheduling Team, Could we please arrange outpatient EGD for Beulah Garcia in 4 to 6 weeks for follow up of Esophageal variceal banding. no, medication changes are needed prior to the procedure. Anticoagulation: None I appreciate your help in arranging the patient's procedure. Sincerely, Espinoza Parra MD GI Fellow, Division of Gastroenterology / Hepatology [facility] Received Date Received Time Oct 11, 2024 9:15 AM GLUCOSE - POINT OF CARE Routine 11/17/2024 9:55 AM [facility]ER WINDER COMPREHENSIVE METABOLIC PANEL Routine 10/11/2024 5:57 AM [facility]ER W[employer]ER HEMOGLOBIN A1C Routine 10/08/2024 9:31 AM [facility]ER WINDER HEPATITIS C ANTIBODY Routine 11/14/2017 10:15 AM FE[employer]ER DUSTER WINDER from Last 3 Months or Most Recently Relevant to Health Maintenance Results * EGD (11/17/2024 10:28 AM FEATHER DUSTER WINDER) Report Endoscopy POC Endoscopy Department Report _ [...] entire procedure. Procedure Code(s): --- Professional --- 75718, Esophagogastrodu odenoscopy, flexible, transoral; with band ligation of esophageal/gastr ic varices Diagnosis Code(s): --- Professional --- R12, Heartburn K76.6, Portal hypertension I85.00, Esophageal varices without bleeding K31.89, Other diseases of stomach and duodenum CPT copyright 2021 [employer]. All rights reserved. The codes documented in this report are preliminary and upon pearl fisherman review may be revised to meet current compliance requirements. Chente Ludwig MD 11/17/2024 10:51:14 AM Note Initiated On: 11/17/2024 10:28 AM Number of Addenda: [address] PROVATION 11/17/2024 10:2 8 AM [facility] WINDER Chente Lduwig MD GI PROCEDURE ORDERAB LES [facility] PROVATION * (ABNORMAL) GLUCOSE - POINT OF CARE (11/17/2024 9:55 AM FEATHER DUSTER WINDER) Glucose WB/POC 113(H) 70 - 99 mg/dL 11/17/2024 10:00 AM [facility] Specimen Type Venous 11/17/2024 10:00 AM [facility] Blood BLOOD SPECIMEN / Unknown 11/17/2024 9:55 AM [facility]ER 11/17/2024 10:00 AM [facility]ER Chente Ludwig MD LAB - POINT OF CARE ORDERABLES Performing Organization Address [facility]/ZIP Co de Phone Number [facility] [address] [place] [phone], [place] [phone] * (ABNORMAL) COMPREHENSIVE METABOLIC PANEL (10/11/2024 5:57 AM [facility] W[facility]ER) BUN 5(L) 7 - 26 mg/dL 10/11/2024 6:56 AM [facility] Creatinine 0.81 0.56 - 0.96 mg/dL 10/11/2024 6:56 AM [facility] Sodium 140 136 - 145 mmol/L 10/11/2024 6:56 AM [facility] Potassium 3.6 3.5 - 4.5 mmol/L 10/11/2024 6:56 AM [facility] Chloride 113(H) 98 - 107 mmol/L 10/11/2024 6:56 AM [facility] CO2 21(L) 22 - 29 mmol/L 10/11/2024 6:56 AM [facility] Glucose 172(H) 70 - 99 mg/dL 10/11/2024 6:56 AM [facility] Calcium 8.4 8.4 - 10.2 mg/dL 10/11/2024 6:56 AM [facility] Protein Total 5.4(L) 6.0 - 8.3 g/dL 10/11/2024 6:56 AM [facility] Albumin 3.6 3.4 - 5.0 g/dL 10/11/2024 6:56 AM [facility] Bilirubin Total 0.9 0.2 - 1.2 mg/dL 10/11/2024 6:56 AM [facility] Alkaline Phosphatase 50 40 - 150 U/L 10/11/2024 6:56 AM [facility] ALT 29 5 - 55 U/L 10/11/2024 6:56 AM [facility] AST 49(H) 5 - 34 U/L 10/11/2024 6:56 AM [facility] Anion Gap 6 6 - 16 10/11/2024 6:56 AM [facility] BUN/Creatinine Ratio 6(L) 7 - 23 10/11/2024 6:56 AM [facility] Osmolality Calculated 291 275 - 295 mOsm/kg 10/11/2024 6:56 AM [facility] Albumin/Globulin Ratio 2.0 1.1 - 2.3 10/11/2024 6:56 AM [facility] eGFR by CKD-EPI >90 >=90 mL/min/1.7 3 m2 10/11/2024 6:56 AM [facility] Blood BLOOD SPECIMEN / Unknown Venipuncture / Unknown 10/11/2024 5:57 AM [facility] 10/11/2024 6:26 AM [facility] Ron Dawson MD LAB - CHEMISTRY SUZY HONG [facility] Organization Address [facility]/State/[facility] Co de Phone Number [facility] [address] [place] [address] [phone] * HEMOGLOBIN A1C (10/08/2024 9:31 AM [facility]) Hemoglobin A1c 5.3 <=5.6 % 10/08/2024 1:40 PM [facility] Estimated Average Glucose 105 mg/dL 10/08/2024 1:40 PM [facility] Comment: HbA1c Interpretation: Normal : < 5.7% Pre-diabetes: 5.7-6.4% Diabetes: Equal to or greater than 6.5% Test results diagnostic of diabetes should be repeated for confirmation. Treatment target values recommended by ADA and other clinical organizations should be used to evaluate metabolic control in patients. Reference: [place] Diabetes Association, Standards of Care in Diabetes -2020 In patients 70 years and older consider HbA1c target range of 7.0-7.5% (Reference: Garcia Contreras et al. JAMDA. 2012) The Sebia assay for the measurement of HbA1c is a National Glycohemoglobin Standardization Program (NGSP) certified method. Blood BLOOD SPECIMEN / Unknown Lab Venipuncture / Unknown 10/08/2024 9:31 AM [facility] 10/08/2024 9:59 AM [facility] W[facility]ER Ron Dawson MD LAB - CHEMISTRY SUZY HONG [facility] [address] [place] [address], [facility] [phone] * HEPATITIS C ANTIBODY (11/14/2017 10:15 AM FE[facility]ER WINDER) Hepatitis C Antibody Non-react [facility] Comment: Hepatitis C Antibody screen indicates no serologic evidence of past or current infection with Hepatitis C Virus. Patients with unexplained liver disease who are immunocompromised or suspected of having acute Hepatitis C infection may benefit from Nucleic Acid Test (USMAN) for Hepatitis C Viral RNA to confirm Hepatitis C status. Blood specimen (specimen) BLOOD SPECIMEN / Unknown 11/14/2017 10:15 AM [facility]ER 11/14/2017 11:03 AM [facility]ER Verito Mcclendon MD LAB - CHEMISTRY OR DERABLES [facility] [address] [place] [address], [facility] [phone] from Last 3 Months or Most Recently Relevant to Health Maintenance Advance Directives * Full Code (Latest Code Status on File) Date Activated Date Inactivated Comments 10/07/2024 6:10 PM 10/11/2024 5:22 PM Care Teams Cell Maker Relationship Specialty Start Date End Date Sadia Morris [address] [place] [address] [address] [place] [address] PCP - General 09/13/24 Sadia Morris [address] [place] [address] [address] [place] [address] 09/13/24
--- OUTSIDE RECORDS SUMMARY | 2025-01-12 19:18 | XMS_ITS ---
Author Organization [facility] Address [address] [place] [address] Care Team Providers Care Assistant Principal Name Role Phone Allie Lopez Primary Care Provider [phone] Allergies Allergen (clinical drug ingredient) Drug/Non Drug Allergy documented on EMR Reaction Allergy Type Onset Date Status [place]ant Oil sunflower oil (uncoded) rash Allergy Active [...] Unknown Encounters Encounter Location Date Provider Diagnosis [address], [place] [address] 09/29/2024 Allie Lopez Bipolar 1 disorder F31.9 [...] * Beulah MACHADODOB:[birth year] (44 yo F)Acc No.[id number]:09/29/2024 Patient: Beulah PALACIOS Provider: SLOAN Arias :1980 A ge:44 Y S ex:Female Date:09/29/2024 Address:[address] [facility] Check In:09:20 AM MINERAL ENGINEER Subjective: * Chief Complaints: * J neva [...] slowly move out. Purchased a house in [place] and is happy to be closer to [...] * Follow Up: 2 Months * * RAL ENGINEER Sign off status: Completed true * Provider: PORSCHE Arias- Date: 1 11/30/2023 Generated for Prema dumont/Arlene/eTransmsania on: 0 01/12/2025 07:17 PM CDT History and Physical Notes * HPI (History [...] slowly move out. Purchased a house in [place] and is happy to be closer to [...]
--- OUTSIDE RECORDS SUMMARY | 2025-01-12 19:18 | XMS_ITS ---
Author Organization [facility] Address [address] [place] [address] Care Team Providers Care Canvas Marker Name Role Phone Allie Lopez Primary Care Provider Allergies Allergen (clinical drug ingredient) Drug/Non Drug Allergy documented on EMR Reaction Allergy Type Onset Date Status [place] Oil sunflower oil (uncoded) rash Allergy Active [...] Not-Taking Encounters Encounter Location Date Provider Diagnosis [place] [address] [place] [address] 12/01/2024 Allie Lopez Bipolar 1 disorder F31.9 [...] Confirmed knowledge of [facility] hotline [phone] for clients 20 and under and [place] [facility] line [phone] and awareness of 988. SSRI Discussed possible [...] Confirmed knowledge of [facility] hotline [phone] for clients 20 and under and [place] [facility] line [phone] and awareness of 988. SSRI Discussed possible side effects: GI upset, headache, decreased libido/anorgasmia, weight gain, signs of serotonin syndrome and risk of activation to suicidality Next Appt Details Follow Up: 3 Months, Reason: Progress Notes * JEANNETTE BeulahDOB:[birth year] (44 yo F)Acc No.[id number]:12/01/2024 Patient: Beulah PALACIOS Provider: SLOAN Arias :1980 A ge:44 Y S ex:Female Date:12/01/2024 Address:[address] [place] [address] [address] [place] [phone] Check In:09:42 AM DIAL BRUSHER Subjective: * Chief Complaints: * 2 Month Psych F/U & Med Refill * HPI: P sych F/U: Patient presents for psychiatric follow-up visit. Changes since last visit?: H appy with the move to [place] closer to sister. Seeking SSDI and retained an district attorney. A1C is now under 6 and I can can tell. I have energy and feel decent. FEels Vraylar is working well dont' change a thing-it's dialed in. . Effectiveness of medications: Y es, patient reports they are effective. 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 Sleep: A ppropriate sleep doxepin [...] injection. . Therapy? 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 D epression Screening: PHQ-9 L ittle interest [...] I nterpretation M inimal Depression S creening: Wheeler Suicide Severity Rating Scale (LF) D o [...] Confirmed knowledge of [facility] hotline [phone] for clients 20 and under and [place] [facility] line [phone] and awareness of 268. SSRI Discussed possible side effects: GI upset, headache, decreased libido/anorgasmia, weight gain, signs of serotonin syndrome and risk of activation to suicidality * Procedure Codes: * Follow Up: 3 Months * * BRUSHER Sign off status: Completed true * Provider: Ben Lopez ANP- Date: 12/01/2024 Generated for Prema dumont/Arlene/eTransmitting on: 0 01/12/2025 07:17 PM CDT History [...] last visit?: Happy with the move to [place] closer to sister. Seeking SSDI and retained an district attorney. A1C is now under 6 and I can can tell. I have energy and feel decent. FEels Vraylar is working well dont' change a thing-it's dialed in. 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 Homicidal ideation: Denies homicidal glen ation. Hallucinations Denies hallucination s Medical concerns or hospitalizations? A1 C is 5.6! using injection. Therapy? an[facility]ro [facility] at [facility] Suicide Sev erity Rating Scale (LF) Do [...]
--- OUTSIDE RECORDS SUMMARY | 2025-01-12 19:18 | XMS_ITS | Clinical Summary ---
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 09/12/2024 GERD (gastroesophageal reflux disease) Hyperlipidemia associated with type 2 diabetes m ellitus 09/12/2024 Hypoglycemia associated with type 2 diabetes shae litus 09/12/2024 Orthostatic hypotension 09/12/2024 Thrombocytopenia 09/12/2024 Hx of esophageal varices 09/12/2024 Surgical History Surgery Date Site/Laterality Comments KNEE SURGERY CHOLECYSTECTOMY HYSTERECTOMY DILATION AND CURETTAGE OF UTERUS OVARIAN CYST REMOVAL ANKLE SURGERY LITHOTRIPSY CARPAL TUNNEL RELEASE ELBOW SURGERY Medical History Medical History Date Comments GERD (gastroesophageal reflux disease) Liver cirrhosis (HCC) Hypertension Diabetes mellitus (HCC) Migraines Hypercholesteremia Bipolar 2 disorder (HCC) Depression Anxiety Bilateral ovarian cysts Social [...] on file Legal Sex Female 11:18 PM SPECIAL EVENTS DIRECTOR Gender Identity Not on file Sexual Orientation Not on file Obstetrics History Last Filed Vital Signs Vital Sign Reading Time Taken Comments Blood Pressure 122/71 09/13/2024 3:03 PM SPECIAL EVENTS DIRECTOR Pulse 64 09/13/2024 3:03 PM SPECIAL EVENTS DIRECTOR Temperature 36.2 C (97.2 F) 09/13/2024 3:03 PM SPECIAL EVENTS DIRECTOR Respiratory Rate 16 09/13/2024 3:03 PM SPECIAL EVENTS DIRECTOR Oxygen Saturation 97% 09/13/2024 3:03 PM SPECIAL EVENTS DIRECTOR Inhaled Oxygen Concentration - - Weight 90.3 kg (199 lb) 09/12/2024 2:18 AM SPECIAL EVENTS DIRECTOR Height 157.5 cm (5' 2 ) 09/12/2024 2:18 AM SPECIAL EVENTS DIRECTOR Body Mass Index 36.4 09/12/2024 2:18 AM SPECIAL EVENTS DIRECTOR Plan of Treatment Health Maintenance Due Date [...] Panel 07/15/2021 07/15/2020 Influenza Vaccine (#1) 2024 0, 09/14/2019, 11/16/2015, Additional history exists Hemoglobin A1C 03/12/2025 09/12/2024 eGFR 09/11/2025 09/11/2024, 08/0 10/2023, 08/09/2023, Additional history exists HPV Vaccines Aged Out No longer eligi ble based on patient's age to complete this topic Procedures Procedure Name Priority Date/Time Associated Diagnosis Comments HEMOGLOBIN A1C Routine 09/12/2024 4:58 AM SPECIAL EVENTS DIRECTOR EGFR STAT 09/11/2024 11:22 PM SPECIAL EVENTS DIRECTOR from Last 3 Months or Most Recently Relevant to Health Maintenance Results * Hemoglobin A1c (09/12/2024 4:58 AM SPECIAL EVENTS DIRECTOR) Hgb A1C 5.4 4.0 - 5.6 % Estimated Average Glucose 108 mg/dL JUDITH THOMPSON ([place]) Comment: The ADA recommends reporting an estimated Average Glucose (eAG) with all Hemoglobin A1c results using the equation derived from a study of 507 normal and diabetic adults. Minority populations were underrepresented and children were not included. (Diabetes Care 31:2216-9342, 2008). The eAG is not equivalent to a fasting glucose. Blood 09/12/2024 4:58 AM SPECIAL EVENTS DIRECTOR 09/12/2024 5:07 AM SPECIAL EVENTS DIRECTOR us Dionicio Levin MD LAB BLOOD ORDERABLES Final Resu lt JUDITH THOMPSON ([place]) 1 [facility] Department [place] [address] * eGFR (09/11/2024 11:22 PM SPECIAL EVENTS DIRECTOR) eGFR 69 >=60 mL/min/1. 73 m2 Comment: [...] reviewed 2021. Blood 09/11/2024 11:2 2 PM SPECIAL EVENTS DIRECTOR 09/11/2024 11:22 PM SPECIAL EVENTS DIRECTOR Valdez Lee MD LAB BLOOD ORDERABLES Final R esult [facility] ([place]) 1 [facility] Department of [employer] [place] [address] from Last 3 Months or Most Recently Relevant to Health Maintenance Insurance [facility] Advance Directives For more information, please contact: [phone] * LIMITED - No CPR (Latest Code [...] 1:26 AM 09/12/2024 5:23 AM Care Teams Director Card Relationship Specialty Start Date End Date Sadia Morris NP [facility] [address] [place] [id number] PCP - General Nurse Practitioner 02/28/24
--- OUTSIDE RECORDS SUMMARY | 2025-01-12 19:18 | XMS_ITS | Referral Summary ---
Author Organization [facility] Address [address] [place] [address] Care Team Providers Care Business Process Architect Name Role Phone Sadia Morris NP Primary Care Provider + Allergies Active Allergy Reactions Criticality Noted Date Comments Sumatriptan Muscle pain,Other (See comments) Medium [place] Oil Hives Medium 02/13/2022 Medications cyclobenzaprine (FLEXERIL) [...] Inject 30 Units under the skin nightly Active Active Problems Problem Noted Date Diagnosed [...] on file Legal Sex Female 11:18 PM YARD SUPERVISOR Gender Identity Not on file Sexual Orientation Not on file Last Filed Vital Signs Vital Sign Reading Time Taken Comments Blood Pressure 122/71 09/13/2024 3:03 PM YARD SUPERVISOR Pulse 64 09/13/2024 3:03 PM YARD SUPERVISOR Temperature 36.2 C (97.2 F) 09/13/2024 3:03 PM YARD SUPERVISOR Respiratory Rate 16 09/13/2024 3:03 PM YARD SUPERVISOR Oxygen Saturation 97% 09/13/2024 3:03 PM YARD SUPERVISOR Inhaled Oxygen Concentration - - Weight 90.3 kg (199 lb) 09/12/2024 2:18 AM YARD SUPERVISOR Height 157.5 cm (5' 2 ) 09/12/2024 2:18 AM YARD SUPERVISOR Body Mass Index 36.4 09/12/2024 2:18 AM YARD SUPERVISOR Plan of Treatment Not on file Procedures Procedure Name Priority Date/Time Associated Diagnosis Comments HEMOGLOBIN A1C Routine 09/12/2024 4:58 AM YARD SUPERVISOR EGFR STAT 09/11/2024 11:22 PM YARD SUPERVISOR from Last 3 Months or Most Recently Relevant to Health Maintenance Results * Hemoglobin A1c (09/12/2024 4:58 AM YARD SUPERVISOR) Hgb A1C 5.4 4.0 - 5.6 % Estimated Average Glucose 108 mg/dL JUDITH THOMPSON ([place]) Comment: The ADA recommends reporting an estimated Average Glucose (eAG) with all Hemoglobin A1c results using the equation derived from a study of 507 normal and diabetic adults. Minority populations were underrepresented and children were not included. (Diabetes Care 31:7794-0891, 2008). The eAG is not equivalent to a fasting glucose. Blood 09/12/2024 4:58 AM YARD SUPERVISOR 09/12/2024 5:07 AM YARD SUPERVISOR Dionicio Levin MD LAB BLOOD ORDERABLES Final Resu lt JUDITH THOMPSON ([place]) 1 [facility] Department of Laboratories [place], [place] [id number] * eGFR (09/11/2024 11:22 PM YARD SUPERVISOR) eGFR 69 >=60 mL/min/1. 73 m2 Comment: [...] reviewed 2021. Blood 09/11/2024 11:2 2 PM YARD SUPERVISOR 09/11/2024 11:22 PM YARD SUPERVISOR Valdez Lee MD LAB BLOOD ORDERABLES Final R esult [facility] [place]) 1 [facility] Department [place] [address] from Last 3 Months or Most Recently Relevant to Health Maintenance Insurance Advance Directives For more information, please contact: [phone] * LIMITED - No CPR (Latest Code [...] 1:26 AM 09/12/2024 5:23 AM Care Teams Business Process Architect Relationship Specialty Start Date End Date Sadia Morris NP [address] [facility] [address] [place] [address] PCP - General Nurse Practitioner 02/28/24
--- OUTSIDE RECORDS SUMMARY | 2025-01-12 19:18 | XMS_ITS | Encounter Summary ---
Author Organization [facility] Address [address] [facility] [place] [address] Care Team Providers Care Noise Abatement Engineer Name Role Phone Sadia Morris Primary Care Provider [phone] Sadia Morris Primary Care Provider [phone] Sadia Morris Unavailable Reason for Visit * Reason Onset Date Comments MEDICATION REFILL 01/21/2024 Encounter Details Date Type Department Care Team (Late st Contact Info) Description 01/21/2024 Refill [facility] - GI [address] [place] [address], [place] [phone] Salomon Sapp MD [address] [place] [address] [place] [address] MEDICATION REFILL Social History Tobacco Use Types [...] Description 02/01/2025 9:00 AM CDT Hospital Encounter [facility] [address] [place] [address] Salomon Sapp MD [address] [place] [address] [address] [place] [address] Surgery General 02/01/2025 9:00 AM CDT - 02/01/2025 9:30 AM CDT Surgery [facility] [place] [address] Salomon Sapp MD [address] [place] [address] [address] [place] [address] EGD +/- banding w/ marilee 03/19/2025 11:30 AM CDT Appointment [facility] MRI [address] [place] [address] Salomon Sapp MD [address] [place] [address] [address] [place] [address] 05/07/2025 12:30 PM CDT Office Visit [facility] - GI [address] [place] [phone] Salomon Sapp MD [address] [place] [address] [address] [place] [address] 09/24/2025 9:30 AM MARKETING COMPLIANCE MANAGER Appointment [facility] [address] [place] [phone] Salomon Sapp MD [address] [place] [address] [address] [place] [address] 09/24/2025 10:30 AM MARKETING COMPLIANCE MANAGER Office Visit [facility] - GI [address] [place] [phone] Salomon Sapp MD [address] [place] [address] [address] [place] [address] Scheduled Procedures Name Priority Associated Diagnoses Date/Ti sd ESOPHAGOGASTRODUODENOSCOPY ( EGD) DIAGNOSTIC Esophageal varices without bleeding, unspecified esophageal varices type (HCC) 02/01/2025 9:00 AM CDT documented as of this encounter Goals Goal Patient Goal Type Associated Problems Recent Progress Patient-Stated? Author Medication Management General On track( 025 9:52 AM MARKETING COMPLIANCE MANAGER) Mary Kay Andrade, RN Note: Expected end date: ongoing Interventions: Take all medications as prescribed Let your doctor know right away about any changes in your medications Make sure to request a refill of your medication at least one week prior to your last dose documented as of this encounter Visit Diagnoses Not on filedocumented in this encounter Care Teams Noise Abatement Engineer Relationship Specialty Start Date End Date Sadia Morris [address] [place] [address] [place] [address] PCP - General 09/24/23 09/12/24 Sadia Morris [address] [place] [address] [address] [place] [address] PCP - General 09/13/24 Sadia Morris [address] [facility] [address] [place] [address] 09/13/24 documented as of this encounter
--- OUTSIDE RECORDS SUMMARY | 2025-01-12 19:18 | XMS_ITS ---
Author Organization [facility] Address [address], [facility] [address] [place] [address] Phone Care Team Providers Care Termite Exterminator Name Role Phone Ric Malik MD Unavailable [phone] Ric Malik MD Unavailable [phone] Natacha Hoyt MD Primary Care Provider [facility] Status:Enrolled (Active) Start date:11/11/2024 Enrollment date:11/11/2024 Related social drivers of health:Intimate Partner Violence, Social Connections, Alcohol Use, Tobacco Use, Financial Resource Strain,Stress, Physical Activity, Food Insecurity, Transportation Needs, Housing Stability, Utilities Continued Care and Services Coordination
--- OUTSIDE RECORDS SUMMARY | 2025-01-12 19:18 | XMS_ITS ---
Author Organization [facility] Address [address] [place] [address] Care Team Providers Care Fireman Helper Name Role Phone Allie Lopez Primary Care Provider [phone] REASON FOR VISIT PA request Encounters Encounter Location Date Provider Diagnosis [facility] [address] [place] [address] 10/12/2024 Allie Lopez Plan Of Treatment No Information Progress Notes * Beulah MACHADODOB:[birth year] (44 yo F)Acc No.[id number]:10/12/2024 Patient: Eduar JOHNBeulah Adams :1980 A ge:44 Y S ex:Female Address:[facility] [place] [address] * true * Date: Generated for Printi ng/Faxing/eTransmitting on: 0 01/12/2025 07:17 PM CDT
[2025-01-12 19:31] VITALS: BP 119/72; PULSE 77; RESP 20; TEMP 36.6; O2SAT 100
[2025-01-12 20:08] LABS: BEDSIDEPREGUCG Negative (Negative)
[2025-01-12 20:13] LABS: Basophils Absolute Auto 0.1 K/mm3 (0.0-0.1); Basophils Percent Auto 0.6 % (0.2-1.2); Eosinophils Absolute Auto 0.3 K/mm3 (0-0.3); Eosinophils Percent Auto 3.6 % (0-4.4); Hematocrit 39.1 % (37.0-47.0); Hemoglobin 12.6 g/dL (12.0-15.0); Immature Granulocyte Absolute 0.02 K/mm3 (0.00-0.031); Immature Granulocyte Percent A 0.2 % (0-0.5); Lymphocytes Absolute Auto 2.33 K/mm3 (0.9-3.2); Lymphocytes Percent Auto 26.8 % (18.3-44.2); Mean Corpuscular HGB Conc 32.2 g/dl (32-36); Mean Corpuscular Hemoglobin 26.5 pg (26-34); Mean Corpuscular Volume 82.3 fl (80-100); Mean Platelet Volume 12.1 fl (7.4-10.4); Monocytes Absolute Auto 0.6 K/mm3 (0.1-0.6); Monocytes Percent Auto 6.8 % (2.6-8.5); Neutrophils Absolute Auto 5.4 K/mm3 (1.3-6.7); Platelet Count Result 103 k/mm3 (150-375); Red Blood Count 4.75 M/mm3 (4.2-5.4); Red Cell Distribution Width 14.6 % (11.5-14.5); White Blood Count 8.7 K/mm3 (4.5-10.0)
[2025-01-12 20:26] LABS: Alanine Aminotransferase 29 U/L (6-35); Albumin Level 4.7 g/dL (3.5-5.1); Alkaline Phosphatase 100 U/L (38-126); Anion Gap 12 mmol/L (4-12); Aspartate Amino Transferase 35 U/L (14-36); Bilirubin,Total 0.7 mg/dL (0.2-1.3); Blood Urea Nitrogen 16 mg/dL (7-17); Calcium 9.7 mg/dL (8.4-10.2); Carbon Dioxide 23 mmol/L (22-30); Chloride 110 mmol/L (98-107); Estimated CRCL calculation 57 ml/min; Estimated Glomerular Filt Rate 54; Glucose 51 mg/dL (65-110); Lipase 191 U/L (23-300); Sodium 145 mmol/L (137-145)
--- NOTE | 2025-01-12 20:30 | ED.ABDPAIN ---
HPI - Abdominal Pain General Chief Complaint: Urogenital-Female Stated Complaint: flank pain Time Seen by Provider: 01/12/25 20:00 Source: patient Mode of arrival: ambulatory Limitations: no limitations History of Present Illness HPI narrative: This is a 44 year old female that presents to the ER for right flank pain. Reports it has been constant over the last 3 days. Also reports dysuria. Denies fevers, vomiting, hematuria. Related Data Home Medications ?Medication ?Instructions ?Recorded ?Confirmed ?Last Taken ?Type yfakved-wvbsrzqlxduvx-[id number] 250 2 tablet PO Q6H PRN Migraine 06/01/22 11/26/24 Unknown History mg-250 mg-65 mg tablet (Excedrin Headache Migraine) diphenhydramine HCl 25 mg capsule 25 mg PO TID PRN itching 06/01/22 11/26/24 Unknown History (Benadryl) buspirone 15 mg tablet 15 mg PO BID 10/25/22 12/07/24 12/07/24 History hydroxyzine pamoate 25 mg capsule 50 mg PO Q4H PRN Anxiety 07/25/23 11/26/24 Unknown History (Vistaril) prazosin 2 mg capsule 2 mg PO QHS 01/27/24 12/07/24 12/06/24 History cholecalciferol (vitamin D3) 50 50 mcg PO DAILY 07/24/24 12/07/24 12/07/24 History mcg (2,000 unit) capsule (Vitamin D3) clotrimazole 1 % topical cream 1 applic topical Q12H PRN Rash 07/24/24 11/26/24 Unknown History ferrous sulfate 325 mg (65 mg 325 mg PO DAILY 07/24/24 12/07/24 11/23/24 History iron) tablet lidocaine 3 %-hydrocortisone 0.5 % 1 applic RECTAL BID PRN Pain 07/24/24 11/26/24 08/03/24 History rectal cream vitamin B complex 1 tablet PO DAILY 07/24/24 12/07/24 12/07/24 History doxepin 10 mg capsule 10 mg PO QHS 08/13/24 12/07/24 12/06/24 History cariprazine 6 mg capsule (Vraylar) 6 mg PO DAILY 09/21/24 12/07/24 12/07/24 History Allergies Allergy/AdvReac Type Severity Reaction Status Date / Time sunflower oil Allergy Intermediate Hives Verified 01/12/25 19:16 sumatriptan (From Imitrex) AdvReac Intermediate Muscle Verified 01/12/25 19:16 Spasms Review of Systems Review of Systems: CONSTITUTIONAL: Denies fever GASTROINTESTINAL: Reports abdominal pain GENITOURINARY: Reports dysuria. Denies hematuria. All systems reviewed & are unremarkable except as noted in HPI and below PMFSH Past Medical History Medical History Type 2 diabetes mellitus (~2006) Rectal bleeding Left knee pain Medial meniscus tear Chronic nausea Gastroesophageal reflux disease Esophageal varices determined by endoscopy Irritable bowel syndrome with alternating bowel habits Portal hypertensive gastropathy Cirrhosis Bipolar 2 disorder Alopecia Cat scratch of forearm Body mass index (BMI) 35 or more (05/05/19) Vaginal yeast infection Type 2 diabetes mellitus with hyperglycemia Benign essential hypertension Abnormal vaginal bleeding Abnormal CT of brain Nausea & vomiting Hx of renal calculi (~07/2021) Portal hypertension (~07/2021) Chronic GERD Ganglion cyst Vitamin D deficiency Dyslipidemia BMI 40.0-44.9, adult Anxiety and depression HTN (hypertension) Type 2 diabetes mellitus with other circulatory complications (~2006) Avulsion fracture of right calcaneus with delayed healing (~2016) Other and unspecified hyperlipidemia (~2018) Hypertension complicating diabetes (~2013) Iron deficiency anemia due to chronic blood loss (~2016) 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: [facility] Microalbuminuria due to type 2 diabetes mellitus (~2017) Migraine without aura, not intractable, with status migrainosus (~1992) meds tried: midrin (helpful), imitrex (no help), zomig, topamax (helpful) Recurrent major depressive disorder in partial remission (~1992) Renal cyst, acquired (~2011) Hyperlipidemia associated with type 2 diabetes mellitus (~2018) Unspecified cirrhosis of liver (~2014) LOVE Surgical History Surgical History History of urethral stent (~07/2021) H/O: hysterectomy H/O left knee surgery Status post right foot surgery (~2017) History of cholecystectomy (~2017) Family History Family History Father Hypertension Cerebrovascular accident Family history of diabetes mellitus in first degree relative Diabetes mellitus Mother Hypertension Other Family history of Alzheimer's disease Family history of cardiovascular disease Family history of chronic obstructive pulmonary disease Family history of congestive heart failure Family history of hearing loss Family history of migraine headaches Family history of obesity Social History Social History Social History: , no children. Unemployed. Caffeine-rarely Smoking packs per day: 1 Smoking cigarettes per day: 20.0 Years smoked: 13 Smoking pack-years: 13.00 Smoking status: Former smoker Tobacco type: e-cigarettes/vaping Smoking end date: 10/14/06 Alcohol intake: never Substance use: never Substance use type: does not use Last use: Quit 1997 Do You Feel Safe in your Home?: Yes Lack of Transportation: No Lack of Food: Never True Current Housing: I Have Housing Concerned About Future Housing: No Difficulty Paying Gas/Electric Bills: No Difficulty Paying for Meds: No Currently Unemployed: Decline to Answer Education: Associate Degree Living arrangements: with family Additional living arrangements comments: lives with soon to be x- Occupation/Education: occupation Gender identity (if verbalized by the patient): Female Spiritual care concerns: No Agree to blood products: Yes Exam Narrative: GENERAL: Well-appearing, well-nourished, and in no acute distress. HEAD: Normocephalic, atraumatic. EYES: EOMI. CHEST: Clear to auscultation. No respiratory distress. No wheezes rales or rhonchi HEART: Regular rate and rhythm. No murmur heard. Normal peripheral pulses. ABDOMEN: Soft, nontender, nondistended, normal active bowel sounds. No CVA tenderness EXTREMITIES: Normal range of motion. No edema. SKIN: Warm, dry, no rash. NEURO: No focal deficits. Alert and oriented x3. PSYCH: Normal mood and affect Course Course Emergency Course: patient's blood glucose is 107. updated on her workup. ready for discharge Vital Signs Vital signs: Vital Signs Temperature 97.8 F 01/12/25 19:31 Pulse Rate 77 01/12/25 19:31 Respiratory Rate 20 01/12/25 19:31 Blood Pressure 119/72 01/12/25 19:31 Pulse Oximetry 100 01/12/25 19:31 Oxygen Delivery Room Air 01/12/25 19:31 Temperature 97.8 F 01/12/25 19:31 Pulse Rate 73 01/12/25 22:32 Respiratory Rate 16 01/12/25 22:32 Blood Pressure 120/76 01/12/25 22:32 Pulse Oximetry 100 01/12/25 22:32 Oxygen Delivery Room Air 01/12/25 19:31 MDM - Abdominal Pain MDM Narrative Medical decision making narrative: Patient presents the emergency department for right flank pain, dysuria. She is afebrile and nontoxic appearing. Her vitals are stable. Cbc without leukocytosis. Metabolic panel with mild hypokalemia. Also notable for hypoglycemia. Patient was fed. Blood sugar has continued to rise urine of possible evidence of infection. This was sent for culture. CT abdomen and pelvis shows a nonobstructing renal calculus. Patient's blood glucose is 107. updated on her workup. ready for discharge. She is to follow up with primary provider. She was given warnings to return to the ER Differential Diagnosis Differential diagnosis: Likely calculus of kidney and other (UTI, muscle strain) Lab Data Attestation: I reviewed the patient's lab results. 01/12/25 20:06 01/12/25 20:06 Labs: Lab Results 01/12/25 01/12/25 Range/Units 20:06 20:19 WBC 8.7 (4.5-10.0) K/mm3 RBC 4.75 (4.2-5.4) M/mm3 Hgb 12.6 (12.0-15.0) g/dL Hct 39.1 (37.0-47.0) % MCV 82.3 (80-100) fl MCH 26.5 (26-34) pg MCHC 32.2 (32-36) g/dl RDW 14.6 H (11.5-14.5) % Plt Count 103 L (150-375) k/mm3 MPV 12.1 H (7.4-10.4) fl Immature Gran % (Auto) 0.2 (0-0.5) % Neut % (Auto) 62.0 (45.5-73.1) % Lymph % (Auto) 26.8 (18.3-44.2) % Archuleta % (Auto) 6.8 (2.6-8.5) % Eos % (Auto) 3.6 (0-4.4) % Baso % (Auto) 0.6 (0.2-1.2) % Lymph # (Auto) 2.33 (0.9-3.2) K/mm3 Archuleta # (Auto) 0.6 (0.1-0.6) K/mm3 Eos # (Auto) 0.3 (0-0.3) K/mm3 Baso # (Auto) 0.1 (0.0-0.1) K/mm3 Abs Immat Gran (auto) 0.02 (0.00-0.031) K/mm3 Absolute Neuts (auto) 5.4 (1.3-6.7) K/mm3 Absolute Nucleated RBC 0.000 (0.0-0.012) K/mm3 Nucleated RBC % 0.0 (0.0-0.2) % Sodium 145 (137-145) mmol/L Potassium 3.0 L (3.4-5.0) mmol/L Chloride 110 H (98-107) mmol/L Carbon Dioxide 23 (22-30) mmol/L Anion Gap 12 (4-12) mmol/L BUN 16 D (7-17) mg/dL Creatinine 1.09 H (0.7-1.0) mg/dL Estim Creat Clear Calc 57 ml/min Estimated GFR 54 L (59 - ) Glucose 51 L* (65-110) mg/dL Calcium 9.7 (8.4-10.2) mg/dL Magnesium 1.8 (1.6-2.3) mg/dL Total Bilirubin 0.7 (0.2-1.3) mg/dL AST 35 (14-36) U/L ALT 29 (6-35) U/L Alkaline Phosphatase 100 (38-126) U/L Total Protein 8.0 (6.3-8.2) g/dL Albumin 4.7 (3.5-5.1) g/dL Lipase 191 (23-300) U/L Urine Color Dark yellow (Yellow) Urine Appearance Cloudy H (Clear) Urine pH 5.5 (5.0-9.0) Ur Specific [place] 1.031 (1.001-1.035) Urine Protein 1+ H (Negative) mg/dL Urine Glucose (UA) 3+ H (Negative) mg/dL Urine Ketones Trace H (Negative) mg/dL Ur Blood (Man) 3+ H (Negative) Urine Nitrate Negative (Negative) Urine Bilirubin Negative (Negative) Urine Urobilinogen 1.0 (<2.0) mg/dL Add Ur Microanalysis Reviewed Leukocyte Esterase Rfl Negative (Negative) KATIE/UL Urine RBC >100 H (0-2) /hpf Urine WBC 11-20 H (0-3) /hpf Ur Squamous Epith Cells Few (Few) /hpf Calcium Oxalate Crystal Present (None) /hpf Urine Bacteria Rare /hpf Urine Casts 3-5 Urine Yeast (Budding) Present H (None) /hpf POC Urine HCG, Qual Negative (Negative) Imaging Data Radiologist's impression: ITS Impressions Abdomen/Pelvis CT 01/12/25 21:13 IMPRESSION: Redemonstration of a large nonobstructing calculus within the upper pole of the right kidney. No acute intra-abdominal pathology, as detailed above. Critical Care Time Critical Care Time Critical Care Time: No Discharge Plan Discharge Clinical Impression: Acute UTI, Hypoglycemia, Hypokalemia Patient Disposition: Home, Self-Care Condition: Stable Instructions: Antibiotic Form, Urinary Tract Infection in Women (ED), Hypokalemia (ED), Hypoglycemia in a Person with Diabetes (ED) Additional Instructions: Return to the ER if you experience fever, abdominal pain with nausea and vomiting, you are unable to keep down liquids or solids, blood in the urine or any other symptoms that are concerning to you Remain well hydrated. Take oral antibiotic as prescribed Follow up with primary care doctor Patient Language: Serbian Prescriptions: New cefdinir 300 mg capsule 300 mg PO Q12H 7 Days Qty: 14 0RF No Action (DME) OneTouch Verio test strips Strip See Rx Instructions .Route Qty: 100 11RF Rx Instructions: Monitor glucose 3-4 times a day prazosin 2 mg capsule 2 mg PO QHS doxepin 10 mg capsule 10 mg PO QHS (DME) Dexcom G7 Sensor Device See Rx Instructions .ROUTE .MEDSUPPLY Qty: 9 3RF Rx Instructions: Use to monitor glcuose Vraylar 6 mg capsule 6 mg PO DAILY Baqsimi 3 mg/actuation spray,non-aerosol 3 mg intranasal ONCE PRN (Reason: hypoglycemia) Qty: 1 0RF Rx Instructions: as a single dose buspirone 15 mg tablet 15 mg PO BID Humulin R U-500 (Conc) Kwikpen 500 unit/mL (3 mL) insulin pen See Rx Instructions .ROUTE .COMPLEX Qty: 39 0RF Dose Instruction: INJECT 70 UNITS SUBCUTANEOUSLY THREE TIMES DAILY WITH MEALS Rx Instructions: Sliding scale BID-TID carvedilol 3.125 mg tablet 3.125 mg PO Q12H Qty: 180 1RF Rx Instructions: must administer with a meal/food bisacodyl 10 mg suppository 10 mg RECTAL DAILY PRN (Reason: constipation) Qty: 12 0RF Rx Instructions: Insert 1 suppository in rectum if no BM in 72 hours bisacodyl 5 mg tablet,delayed release (DR/EC) 5 mg PO ONCE Qty: 20 0RF Rx Instructions: Take one tablet if no BM in 24 hours pantoprazole 40 mg tablet,delayed release (DR/EC) 40 mg PO QAM Qty: 90 0RF diphenhydramine HCl [Benadryl] 25 mg Capsule 25 mg PO TID PRN (Reason: itching) Excedrin Migraine 250-250-65 mg Tablet 2 tablet PO Q6H MDD 4 PRN (Reason: Migraine Headache) clotrimazole 1 % cream 1 applic topical Q12H PRN (Reason: Rash) lidocaine HCl-hydrocortison ac 3-0.5 % cream 1 applic RECTAL BID PRN (Reason: Pain) ferrous sulfate 325 mg (65 mg iron) Tablet 325 mg PO DAILY vitamin B complex [B Complex-Vitamin B12] Tablet 1 tablet PO DAILY cholecalciferol (vitamin D3) [Vitamin D3] 50 mcg (2,000 unit) Capsule 50 mcg PO DAILY duloxetine 30 mg capsule,delayed release(DR/EC) 30 mg PO BID Qty: 180 1RF betamethasone valerate 0.1 % cream 1 applic topical BID PRN (Reason: rash) Qty: 45 1RF (DME) pen needle, diabetic [BD Ultra-Fine Shantelle Pen Needle] 32 gauge x 5/32 needle See Rx Instructions .ROUTE .MEDSUPPLY Qty: 300 1RF Rx Instructions: three times daily hydroxyzine pamoate [Vistaril] 25 mg capsule 50 mg PO Q4H PRN (Reason: Anxiety) albuterol sulfate 90 mcg/actuation HFA aerosol inhaler 1 puff INHALATION Q4H PRN (Reason: shortness of breath or wheezing) Qty: 6.7 1RF lisinopril 2.5 mg tablet 2.5 mg PO DAILY Qty: 90 1RF ondansetron 4 mg tablet,disintegrating 4 mg PO DAILY PRN (Reason: Nausea) Qty: 20 0RF dexlansoprazole 60 mg capsule,biphase delayed releas 60 mg PO DAILY 30 Days Qty: 30 12RF topiramate [Topamax] 200 mg tablet 200 mg PO DAILY Qty: 90 0RF Mounjaro 10 mg/0.5 mL pen injector 10 mg subcut WEEKLY Qty: 6 1RF cyclobenzaprine 10 mg tablet 10 mg PO TID PRN (Reason: muscle spasm) Qty: 60 1RF rizatriptan 5 mg tablet See Rx Instructions PO .COMPLEX PRN (Reason: Migraine Headache) Qty: 10 5RF Rx Instructions: take 1 tab at onset of headache; if no relief may repeat 1 tab after at least 2 hrs; max = 3 tabs/24 hr PO folic acid 1 mg tablet 1 mg PO DAILY Qty: 90 1RF atorvastatin 80 mg tablet 80 mg PO QHS Qty: 90 1RF Jardiance 25 mg tablet 25 mg PO DAILY Qty: 90 1RF Follow-up/Referrals: Karin Hoyt MD [Primary Care Provider] -
--- NOTE | 2025-01-12 20:39 | PC.NURSE ---
Pt. notified that her B.S. was low. Speech is clear. Pt. alert, A&Ox4. Pt. given juice and kemal cracker with peanut butter. Pt. states she is a diabetic.
[2025-01-12] MEDS: POTASSIUM CHLORIDE 20 MEQ ER TABLET 40 MEQ PO (20:41)
[2025-01-12 20:43] LABS: Add Urine Microscopic? YES; Appearance Urine Cloudy (Clear); Bacteria Urine Rare /hpf; Bilirubin Urine Negative (Negative); Blood Urine 3+ (Negative); Budding Yeast Urine Present /hpf; Calcium Oxalate Crystals Urine Present /hpf; Color Urine Dark Yellow (Yellow); Glucose Urine UA 3+ mg/dL (Negative); Ketones Urine Trace mg/dL (Negative); Leukocyte Esterase Ur Negative LEU/UL (Negative); Need Manual Microscopic Reviewed; Nitrate Urine Negative (Negative); Protein Urine 1+ mg/dL (Negative); RBC Urine >100 /hpf (0-2); Specific Grav Ur 1.031 (1.001-1.035); Squamous Epithelial Cell Urine Few /hpf (Few); pH Urine 5.5 (5.0-9.0)
[2025-01-12 20:44] VITALS: BP 153/101; PULSE 72; RESP 16; O2SAT 100
[2025-01-12 20:46] LABS: Magnesium 1.8 mg/dL (1.6-2.3)
--- OUTSIDE RECORDS SUMMARY | 2025-01-12 20:52 | XMS_ITS | Clinical Summary ---
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 Gender Identity Not on file Sexual Orientation Not on file Obstetrics History Last Filed Vital Signs Vital Sign Reading Time Taken Comments Blood Pressure 122/71 09/13/2024 3:03 PM MARKETING MANAGER Pulse 64 09/13/2024 3:03 PM MARKETING MANAGER Temperature 36.2 C (97.2 F) 09/13/2024 3:03 PM MARKETING MANAGER Respiratory Rate 16 09/13/2024 3:03 PM MARKETING MANAGER Oxygen Saturation 97% 09/13/2024 3:03 PM MARKETING MANAGER Inhaled Oxygen Concentration - - Weight 90.3 kg (199 lb) 09/12/2024 2:18 AM MARKETING MANAGER Height 157.5 cm (5' 2 ) 09/12/2024 2:18 AM MARKETING MANAGER Body Mass Index 36.4 09/12/2024 2:18 AM MARKETING MANAGER Plan of Treatment Health Maintenance Due Date [...] Comments HEMOGLOBIN A1C Routine 09/12/2024 4:58 AM MARKETING MANAGER EGFR STAT 09/11/2024 11:22 PM MARKETING MANAGER from Last 3 Months or Most Recently Relevant to Health Maintenance Results * Hemoglobin A1c (09/12/2024 4:58 AM MARKETING MANAGER) Hgb A1C 5.4 4.0 - 5.6 % Estimated Average Glucose 108 mg/dL [facility] ([place]) Comment: The ADA recommends reporting an estimated Average Glucose (eAG) with all Hemoglobin A1c results using the equation derived from a study of 507 normal and diabetic adults. Minority populations were underrepresented and children were not included. (Diabetes Care 31:6487-0677, 2008). The eAG is not equivalent to a fasting glucose. Blood 09/12/2024 4:58 AM MARKETING MANAGER 09/12/2024 5:07 AM MARKETING MANAGER us Dionicio Levin MD LAB BLOOD ORDERABLES Final Resu lt [facility] ([place]) 1 [facility] Department [place] [address] * eGFR (09/11/2024 11:22 PM MARKETING MANAGER) eGFR 69 >=60 mL/min/1. 73 m2 Comment: [...] reviewed 2021. Blood 09/11/2024 11:2 2 PM MARKETING MANAGER 09/11/2024 11:22 PM MARKETING MANAGER Valdez Lee MD LAB BLOOD ORDERABLES Final R esult [facility] ([place]) 1 [facility] Department [place] [address] from Last 3 Months or Most Recently Relevant to Health Maintenance Insurance [facility] Advance Directives For more information, please contact: [phone] * LIMITED - No CPR (Latest Code [...] 1:26 AM 09/12/2024 5:23 AM Care Teams Doorperson Relationship Specialty Start Date End Date Sadia Morris NP [facility] [address] [place] [address] [place] [id number] PCP - General Nurse Practitioner 02/28/24
--- OUTSIDE RECORDS SUMMARY | 2025-01-12 20:52 | XMS_ITS ---
Author Organization [facility] Address [address], [facility] [place] [address] [place] [address] Phone Care Team Providers Care Special Education Kindergarten Teacher Name Role Phone Ric Malik MD Unavailable [phone] Ric Malik MD Unavailable [phone] Natacha Hoyt MD Primary Care Provider [facility] Status:Enrolled (Active) Start date:11/11/2024 Enrollment date:11/11/2024 Related social drivers of health:Intimate Partner Violence, Social Connections, Alcohol Use, Tobacco Use, Financial Resource Strain,Stress, Physical Activity, Food Insecurity, Transportation Needs, Housing Stability, Utilities Continued Care and Services Coordination
--- OUTSIDE RECORDS SUMMARY | 2025-01-12 20:52 | XMS_ITS | Clinical Summary ---
Author Organization [facility] [employer] Address [address] [place] [address] Care Team Providers Care Crematorium Operator Name Role Phone Sadia Morris Primary Care Provider [phone] Sadia Morris Unavailable Source Comments [facility],non-owned Affiliates and Associated Physician Practices is amultiple site organization consisting of ambulatory clinics and hospital sitesin [place], [place], [place] and [place]. This disclosure is being madepursuant to the Care Everywhere program and may not contain all information available regarding this patient. Last updated 18.[facility] [employer] Allergies Active Allergy Reactions Criticality Noted Date Comments Sumatriptan Myalgias 03/15/2023 Sumatriptan Headache 10/07/2024 [place] Oil Rash,Itching,Skin Reactions Medium 08/01/2017 actual sunflowers themselves [place] Oil Nausea and/or Vomiting 10/07/2024 Medications * [...] as needed Active Glucagon 3 MG/DOSE POWD [place] 3 mg into the nose as needed [...] Active Continuous Glucose Sensor (Dexcom G7 Sensor) [facility] APPLY 1 SENSOR TOPICALLY, CHANGE AND REPLACE EVERY 10 DAYS. USE TO MONITOR GLUCOSE. 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); Liver lesion; Secondary esophageal varices with bleeding; Iron deficiency anemia due to chronic blood loss 12/15/2024 Travel 11/17/2024 10:29 AM SHIP ENGINEER Anesthesia Event [facility] END[facility]COPY [address] [place] [phone] Denis Hagan MD Dobbs, Romina Adams, SIMULATION TECHNICIAN-AUTO ADJUDICATION SPECIALIST 11/17/2024 10:00 AM SHIP ENGINEER - 11/17/2024 10:30 AM SHIP ENGINEER Surgery [facility] [address] [place] [phone] Chente Ludwig MD EGD +/- banding 11/17/2024 8:52 AM SHIP ENGINEER - 11/17/2024 11:45 AM SHIP ENGINEER Hospital Encounter [facility] OP [address] [place] [phone] Chente Ludwig MD Surgery General Discharge Disposition: Home or Self Care 11/17/2024 Travel 11/12/2024 Patient Outreach [facility] [address] [place] [address] Rois Jj, RN 10/16/2024 Travel from Last 3 [...] and heating? Not hard at all 10/07/2024 [facility] - Occupational Stress [...] any time in the past 12 m [facility], were you homeless or living in a correction (including now)? No 10/07/2024 Sex and Gender Information Value Date Recorded Sex Assigned at Female 04/21/2024 2:38 PM CDT Gender Identity Female 04/21/2024 2:38 PM CDT Sexual Orientation Straight 04/21/2024 2: 38 PM CDT Last Filed Vital Signs Vital Sign Reading Time Taken Comments Blood Pressure 129/87 12/15/2024 9:08 AM SHIP ENGINEER Pulse 88 12/15/2024 9:08 AM SHIP ENGINEER Temperature 36.1 C (97 F) 12/15/2024 9:08 AM SHIP ENGINEER Respiratory Rate 14 11/17/2024 11:30 AM SHIP ENGINEER Oxygen Saturation 99% 12/15/2024 9:08 AM SHIP ENGINEER Inhaled Oxygen Concentration - - Weight 93.3 kg (205 lb 9.6 oz) 12/15/2024 9:08 A M SHIP ENGINEER Height 157.5 cm (5' 2 ) 12/15/2024 9:08 AM SHIP ENGINEER Body Mass Index 37.6 12/15/2024 9:08 AM SHIP ENGINEER Plan of Treatment Upcoming Encounters Date Type Department Care Team (Latest Contact Info) Description 02/01/2025 9:00 AM CDT Hospital Encounter [facility] END[facility] [address] [place] [phone] Salomon Sapp MD [address] [place] [address] [address] [place] [address] Surgery General 02/01/2025 9:00 AM CDT - 02/01/2025 9:30 AM CDT Surgery [facility] [address] [place] [phone] Salomon Sapp MD [address] [place] [address] [address] [place] [address] EGD +/- banding w/ marilee 03/19/2025 11:30 AM CDT Appointment [facility] MRI [address] [place] [phone] Salomon Sapp MD [address] [place] [address] [address] [place] [address] 05/07/2025 12:30 PM CDT Office Visit [facility] - GI [address] [place] [phone] Salomon Sapp MD [address] [place] [address] [address] [place] [address] 09/24/2025 9:30 AM SHIP ENGINEER Appointment [address] [phone] Salomon Sapp MD [address] [place] [address] [address] [place] [address] 09/24/2025 10:30 AM SHIP ENGINEER Office Visit [facility] - GI [address] [place] [phone] Salomon Sapp MD [address] [place] [address] [address] [place] [address] Scheduled Procedures Name Priority Associated Diagnoses Date/Ti [...] Management General On track( 025 9:52 AM SHIP ENGINEER) Mary Kay Andrade, RN Note: Expected end date: ongoing Interventions: Take all medications as prescribed Let your doctor know right away about any changes in your medications Make sure to request a refill of your medication at least one week prior to your last dose Procedures Procedure Name Priority Date/Time Associated Diagnosis Comments EGD Routine 11/17/2024 10:28 AM SHIP ENGINEER [place] ED EGD FLEX TRANSORAL DX 11/17/2024 10:24 AM SHIP ENGINEER Esophageal varices without bleeding, unspecified esophageal varices type Special Needs Repeat EGD 4 to 6 weeks Received: Today Espinoza Parra MD P [facility] Schedulers - Endoscopy Pool Dear Scheduling Team, Could we please arrange outpatient EGD for Beulah Garcia in 4 to 6 weeks for follow up of Esophageal variceal banding. no, medication changes are needed prior to the procedure. Anticoagulation: None I appreciate your help in arranging the patient's procedure. Sincerely, Espinoza Parra MD GI Fellow, Division of Gastroenterology / Hepatology [facility] Received Date Received Time Oct 11, 2024 9:15 AM GLUCOSE - POINT OF CARE Routine 11/17/2024 9:55 AM SHIP ENGINEER COMPREHENSIVE METABOLIC PANEL Routine 10/11/2024 5:57 AM SHIP ENGINEER HEMOGLOBIN A1C Routine 10/08/2024 9:31 AM SHIP ENGINEER HEPATITIS C ANTIBODY Routine 11/14/2017 10:15 AM SHIP ENGINEER from Last 3 Months or Most Recently Relevant to Health Maintenance Results * EGD (11/17/2024 10:28 AM SHIP ENGINEER) Report Endoscopy POC Endoscopy Department Report _ [...] entire procedure. Procedure Code(s): --- Professional --- 37925, Esophagogastrodu odenoscopy, flexible, transoral; with band ligation of esophageal/gastr ic varices Diagnosis Code(s): --- Professional --- R12, Heartburn K76.6, Portal hypertension I85.00, Esophageal varices without bleeding K31.89, Other diseases of stomach and duodenum CPT copyright 2021 [employer]. All rights reserved. The codes documented in this report are preliminary and upon auditing coder review may be revised to meet current compliance requirements. Chente Ludwig MD 11/17/2024 10:51:14 AM Note Initiated On: 11/17/2024 10:28 AM Number of Addenda: [address] PROVATION 11/17/2024 10:2 8 AM SHIP ENGINEER Chente Ludwig MD GI PROCEDURE ORDERAB LES [facility] PROVATION * (ABNORMAL) GLUCOSE - POINT OF CARE (11/17/2024 9:55 AM SHIP ENGINEER) Glucose WB/POC 113(H) 70 - 99 mg/dL 11/17/2024 10:00 AM [facility] Specimen Type Venous 11/17/2024 10:00 AM [facility] Blood BLOOD SPECIMEN / Unknown 11/17/2024 9:55 AM SHIP ENGINEER 11/17/2024 10:00 AM SHIP ENGINEER Chente Ludwig MD LAB - POINT OF CARE ORDERABLES Performing Organization Address [facility]/ZIP Co de Phone Number [facility] [address] [place] [phone], [place] [phone] * (ABNORMAL) COMPREHENSIVE METABOLIC PANEL (10/11/2024 5:57 AM SHIP ENGINEER) BUN 5(L) 7 - 26 mg/dL 10/11/2024 6:56 AM [facility] Creatinine 0.81 0.56 - 0.96 mg/dL 10/11/2024 6:56 AM [facility] Sodium 140 136 - 145 mmol/L 10/11/2024 6:56 AM [facility] Potassium 3.6 3.5 - 4.5 mmol/L 10/11/2024 6:56 AM [facility] Chloride 113(H) 98 - 107 mmol/L 10/11/2024 6:56 AM [facility] CO2 21(L) 22 - 29 mmol/L 10/11/2024 6:56 AM [facility] Glucose 172(H) 70 - 99 mg/dL 10/11/2024 6:56 AM [facility] Calcium 8.4 8.4 - 10.2 mg/dL 10/11/2024 6:56 AM [facility] Protein Total 5.4(L) 6.0 - 8.3 g/dL 10/11/2024 6:56 AM [facility] Albumin 3.6 3.4 - 5.0 g/dL 10/11/2024 6:56 AM [facility] Bilirubin Total 0.9 0.2 - 1.2 mg/dL 10/11/2024 6:56 AM [facility] Alkaline Phosphatase 50 40 - 150 U/L 10/11/2024 6:56 AM [facility] ALT 29 5 - 55 U/L 10/11/2024 6:56 AM [facility] AST 49(H) 5 - 34 U/L 10/11/2024 6:56 AM [facility] Anion Gap 6 6 - 16 10/11/2024 6:56 AM [facility] BUN/Creatinine Ratio 6(L) 7 - 23 10/11/2024 6:56 AM [facility] Osmolality Calculated 291 275 - 295 mOsm/kg 10/11/2024 6:56 AM [facility] Albumin/Globulin Ratio 2.0 1.1 - 2.3 10/11/2024 6:56 AM [facility] eGFR by CKD-EPI >90 >=90 mL/min/1.7 3 m2 10/11/2024 6:56 AM [facility] Blood BLOOD SPECIMEN / Unknown Venipuncture / Unknown 10/11/2024 5:57 AM SHIP ENGINEER 10/11/2024 6:26 AM [facility] Ron Dawson MD LAB - CHEMISTRY SUZY HONG [facility] Organization Address [facility]/State/[facility] Co de Phone Number [facility] [address] [place] [address] [phone] * HEMOGLOBIN A1C (10/08/2024 9:31 AM [facility]) Hemoglobin A1c 5.3 <=5.6 % 10/08/2024 1:40 PM [facility] Estimated Average Glucose 105 mg/dL 10/08/2024 1:40 PM [facility] Comment: HbA1c Interpretation: Normal : < 5.7% Pre-diabetes: 5.7-6.4% Diabetes: Equal to or greater than 6.5% Test results diagnostic of diabetes should be repeated for confirmation. Treatment target values recommended by ADA and other clinical organizations should be used to evaluate metabolic control in patients. Reference: [employer], Standards of Care in Diabetes -2020 In patients 70 years and older consider HbA1c target range of 7.0-7.5% (Reference: Garcia Contreras et al. JAMDA. 2012) The Sebia assay for the measurement of HbA1c is a National Glycohemoglobin Standardization Program (NGSP) certified method. Blood BLOOD SPECIMEN / Unknown Lab Venipuncture / Unknown 10/08/2024 9:31 AM SHIP ENGINEER 10/08/2024 9:59 AM SHIP ENGINEER Ron Dawson MD LAB - CHEMISTRY SUZY HONG [facility] [address] [place] [address], [facility] [phone] * HEPATITIS C ANTIBODY (11/14/2017 10:15 AM SHIP ENGINEER) Hepatitis C Antibody Non-react [facility] Comment: Hepatitis C Antibody screen indicates no serologic evidence of past or current infection with Hepatitis C Virus. Patients with unexplained liver disease who are immunocompromised or suspected of having acute Hepatitis C infection may benefit from Nucleic Acid Test (USMAN) for Hepatitis C Viral RNA to confirm Hepatitis C status. Blood specimen (specimen) BLOOD SPECIMEN / Unknown 11/14/2017 10:15 AM SHIP ENGINEER 11/14/2017 11:03 AM SHIP ENGINEER Verito Mcclendon MD LAB - CHEMISTRY OR DERABLES [facility] [address] [place] [address], [facility] [phone] from Last 3 Months or Most Recently Relevant to Health Maintenance Advance Directives * Full Code (Latest Code Status on File) Date Activated Date Inactivated Comments 10/07/2024 6:10 PM 10/11/2024 5:22 PM Care Teams Crematorium Operator Relationship Specialty Start Date End Date Sadia Morris [address] [place] [address] [address] [place] [address] PCP - General 09/13/24 Sadia Morris [address] [place] [address] [address] [place] [address] 09/13/24
--- OUTSIDE RECORDS SUMMARY | 2025-01-12 20:52 | XMS_ITS | Clinical Summary ---
Author Organization [facility] Address [address] [place] [address] Phone Care Team Providers Care Electric Motor Mechanic Name Role Phone Ric Malik MD Unavailable [phone] Ric Malik MD Unavailable [phone] Natacha Hoyt MD Primary Care Provider Allergies Active Allergy Reactions Criticality Noted Date Comments Sumatriptan Other (see Comments) 03/15/2023 [place] Oil Hives,Nausea,Vomitin g,Other (see Comments) Low 04/11/2017 [...] Comments Blood Pressure 118/72 09/24/2024 1:11 PM BIOPHYSICS TEACHER Pulse 82 09/24/2024 1:11 PM BIOPHYSICS TEACHER Temperature 36.4 C (97.5 F) 09/24/2024 1:11 PM BIOPHYSICS TEACHER Respiratory Rate 18 09/24/2024 1:11 PM BIOPHYSICS TEACHER Oxygen Saturation 99% 09/24/2024 1:11 PM BIOPHYSICS TEACHER Inhaled Oxygen Concentration - - Weight 87.5 kg (193 lb) 09/24/2024 1:11 PM BIOPHYSICS TEACHER Height 157.5 cm (5' 2 ) 09/24/2024 1:11 PM BIOPHYSICS TEACHER Body Mass Index 35.3 09/24/2024 1:11 PM BIOPHYSICS TEACHER Plan of Treatment Upcoming Encounters Date Type Department Care Team (Late st Contact Info) Description 01/21/2025 1:00 PM CDT [facility] [address] [phone] Ric Malik MD [address] [place], [place] [id number] Health Maintenance Due Date Last Done Comments [...] PLAN MEDICAID [employer] Care Teams Electric Motor Mechanic Relationship Specialty Start Date End Date Natacha Hoyt MD [address] [facility] [address] [place] [address] PCP - General Family Medicine 08/29/23 Rci Malik MD [address] [place] [address] Consulting Physician Oncology 05/22/22 Ric Malik MD [address] [place] [address] Consulting Physician Oncology 08/28/23
--- OUTSIDE RECORDS SUMMARY | 2025-01-12 20:52 | XMS_ITS | Encounter Summary ---
Author Organization [facility] Address [address] [facility] [place] [address] Care Team Providers Care [place] Superintendent Of [employer] Name Role Phone Sadia Morris Primary Care Provider [phone] Sadia Morris Primary Care Provider [phone] Sadia Morris Unavailable Reason for Visit * Reason Onset Date Comments MEDICATION REFILL 01/21/2024 Encounter Details Date Type Department Care Team (Late st Contact Info) Description 01/21/2024 Refill [facility] - GI [address] [place] [address], [facility] [place] [phone] Salomon Sapp MD [address] [place] [address] [place] [address] MEDICATION REFILL Social History Tobacco Use Types [...] Description 02/01/2025 9:00 AM CDT Hospital Encounter [facility] [address] [place] [address] Salomon Sapp MD [address] [place] [address] [address] [place] [address] Surgery General 02/01/2025 9:00 AM CDT - 02/01/2025 9:30 AM CDT Surgery [facility] [place] [address] Salomon Sapp MD [address] [place] [address] [address] [place] [address] EGD +/- banding w/ marilee 03/19/2025 11:30 AM CDT Appointment [facility] MRI [address] [place] [address] Salomon Sapp MD [address] [place] [address] [address] [place] [address] 05/07/2025 12:30 PM CDT Office Visit [facility] - GI [address] [place] [phone] Salomon Sapp MD [address] [place] [address] [address] [place] [address] 09/24/2025 9:30 AM PANEL FITTER Appointment [facility] [address] [place] [phone] Salomon Sapp MD [address] [place] [address] [address] [place] [address] 09/24/2025 10:30 AM PANEL FITTER Office Visit [facility] - GI [address] [place] [phone] Salomon Sapp MD [address] [place] [address] [address] [address] Scheduled Procedures Name Priority Associated Diagnoses Date/Ti nh ESOPHAGOGASTRODUODENOSCOPY ( EGD) DIAGNOSTIC Esophageal varices without bleeding, unspecified esophageal varices type (HCC) 02/01/2025 9:00 AM CDT documented as of this encounter Goals Goal Patient Goal Type Associated Problems Recent Progress Patient-Stated? Author Medication Management General On track( 025 9:52 AM PANEL FITTER) Mary Kay Andrade, RN Note: Expected end date: ongoing Interventions: Take all medications as prescribed Let your doctor know right away about any changes in your medications Make sure to request a refill of your medication at least one week prior to your last dose documented as of this encounter Visit Diagnoses Not on filedocumented in this encounter Care Teams [place] Superintendent [employer] Relationship Specialty Start Date End Date Sadia Morris [address] [place] [address] [place] [phone] PCP - General 09/24/23 09/12/24 Sadia Morris [address] [place] [address] [address] [place] [address] PCP - General 09/13/24 Sadia Morris [address] [facility] [address] [place] [address] 09/13/24 documented as of this encounter
--- OUTSIDE RECORDS SUMMARY | 2025-01-12 20:52 | XMS_ITS | Referral Summary ---
Author Organization [facility] Address [address] [place] [address] Care Team Providers Care Program Aide Name Role Phone Sadia Morris NP Primary Care Provider + Allergies Active Allergy Reactions Criticality Noted Date Comments Sumatriptan Muscle pain,Other (See comments) Medium [place] Oil Hives Medium 02/13/2022 Medications cyclobenzaprine (FLEXERIL) [...] on file Legal Sex Female 11:18 PM CUT OFF MACHINE UNLOADER Gender Identity Not on file Sexual Orientation Not on file Last Filed Vital Signs Vital Sign Reading Time Taken Comments Blood Pressure 122/71 09/13/2024 3:03 PM CUT OFF MACHINE UNLOADER Pulse 64 09/13/2024 3:03 PM CUT OFF MACHINE UNLOADER Temperature 36.2 C (97.2 F) 09/13/2024 3:03 PM CUT OFF MACHINE UNLOADER Respiratory Rate 16 09/13/2024 3:03 PM CUT OFF MACHINE UNLOADER Oxygen Saturation 97% 09/13/2024 3:03 PM CUT OFF MACHINE UNLOADER Inhaled Oxygen Concentration - - Weight 90.3 kg (199 lb) 09/12/2024 2:18 AM CUT OFF MACHINE UNLOADER Height 157.5 cm (5' 2 ) 09/12/2024 2:18 AM CUT OFF MACHINE UNLOADER Body Mass Index 36.4 09/12/2024 2:18 AM CUT OFF MACHINE UNLOADER Plan of Treatment Not on file Procedures Procedure Name Priority Date/Time Associated Diagnosis Comments HEMOGLOBIN A1C Routine 09/12/2024 4:58 AM CUT OFF MACHINE UNLOADER EGFR STAT 09/11/2024 11:22 PM CUT OFF MACHINE UNLOADER from Last 3 Months or Most Recently Relevant to Health Maintenance Results * Hemoglobin A1c (09/12/2024 4:58 AM CUT OFF MACHINE UNLOADER) Hgb A1C 5.4 4.0 - 5.6 % Estimated Average Glucose 108 mg/dL [facility] ([facility]) Comment: The ADA recommends reporting an estimated Average Glucose (eAG) with all Hemoglobin A1c results using the equation derived from a study of 507 normal and diabetic adults. Minority populations were underrepresented and children were not included. (Diabetes Care 31:2080-9284, 2008). The eAG is not equivalent to a fasting glucose. Blood 09/12/2024 4:58 AM CUT OFF MACHINE UNLOADER 09/12/2024 5:07 AM CUT OFF MACHINE UNLOADER Dionicio Levin MD LAB BLOOD ORDERABLES Final Resu lt [facility]ITH [facility]OM[facility] ([place]) 1 [facility] Department of Laboratories [place], [place] [id number] * eGFR (09/11/2024 11:22 PM CUT OFF MACHINE UNLOADER) eGFR 69 >=60 mL/min/1. 73 m2 Comment: [...] reviewed 2021. Blood 09/11/2024 11:2 2 PM CUT OFF MACHINE UNLOADER 09/11/2024 11:22 PM CUT OFF MACHINE UNLOADER Valdez Lee MD LAB BLOOD ORDERABLES Final R esult [facility]) 1 [facility] Department [place] [address] [address] from Last 3 Months or Most Recently Relevant to Health Maintenance Insurance Advance Directives For more information, please contact: [phone] * LIMITED - No CPR (Latest Code [...] 1:26 AM 09/12/2024 5:23 AM Care Teams Program Aide Relationship Specialty Start Date End Date Sadia Morris NP [address] [facility] [address] [place] [address] PCP - General Nurse Practitioner 02/28/24
--- NOTE | 2025-01-12 21:21 | PC.NURSE ---
Pt. has a dexcom that is currently reading 79. Pt. finished kemal crackers with peanut butter and 2x juice. Pt. states she will monitor her dexcom and press call light if she becomes hypoglycemic again. Pt. states she does not feel like she needs additional food or drink at this time.
--- NOTE | 2025-01-12 22:20 | PC.NURSE ---
Pt. states her B.S. is 82. B.S. continues to rise despite her not currently eating. JOSHUA Wilkinson notified.
[2025-01-12 22:32] VITALS: BP 120/76; PULSE 73; RESP 16; O2SAT 100
--- NOTE | 2025-01-12 22:50 | PC.NURSE ---
Assumed care of patient after receiving report from SAMI Pedersen @ [phone]
[2025-01-12 23:35] VITALS: BP 113/69; PULSE 75; RESP 17; O2SAT 96
== END 2025-01-12 23:35 | disposition home or self-care (01) ==
PROVIDERS: Emergency Provider Physician Assistant; PCP Family Medicine
DX: N39.0 Urinary tract infection, site not specified (principal); E87.6 Hypokalemia; E11.649 Type 2 diabetes mellitus with hypoglycemia without coma; K21.9 Gastro-esophageal reflux disease without esophagitis; F31.9 Bipolar disorder, unspecified; I10 Essential (primary) hypertension; F41.9 Anxiety disorder, unspecified; D64.9 Anemia, unspecified; E78.5 Hyperlipidemia, unspecified; K75.81 Nonalcoholic steatohepatitis (NASH)
CPT/HCPCS: 36415; 74176; 80053; 81001; 81025; 83690; 83735; 85025; 96365; 96372; 96375; 99284; A9270; J0696

== ENCOUNTER 2025-02-25 10:50 | Emergency (ER) | payer OTHER, SELFPAY ==
--- NOTE | 2025-02-25 10:58 | ED.URI ---
HPI - URI/Sore Throat General Chief Complaint: Upper Respiratory Infection Stated Complaint: Sinus/Ear Irritation Time Seen by Provider: 02/25/25 10:50 Source: patient Mode of arrival: ambulatory Limitations: no limitations History of Present Illness HPI Narrative: Patient is a 44-year-old female who presents with 3 days of bilateral ear fullness, congestion and 1 day of sinus pressure, body aches and diarrhea. Denies any fever, chills, nausea, vomiting, diarrhea. Has taken [id number] medication with no relief. Related Data Home Medications Medication Instructions Recorded Confirmed Last Taken Type diphenhydramine HCl 25 mg capsule 25 mg PO TID PRN itching 06/01/22 11/26/24 Unknown History (Benadryl) buspirone 15 mg tablet 15 mg PO BID 10/25/22 12/07/24 12/07/24 History hydroxyzine pamoate 25 mg capsule 50 mg PO Q4H PRN Anxiety 07/25/23 11/26/24 Unknown History (Vistaril) prazosin 2 mg capsule 2 mg PO QHS 01/27/24 12/07/24 12/06/24 History cholecalciferol (vitamin D3) 50 50 mcg PO DAILY 07/24/24 12/07/24 12/07/24 History mcg (2,000 unit) capsule (Vitamin D3) ferrous sulfate 325 mg (65 mg 325 mg PO DAILY 07/24/24 12/07/24 11/23/24 History iron) tablet lidocaine 3 %-hydrocortisone 0.5 % 1 applic RECTAL BID PRN Pain 07/24/24 11/26/24 08/03/24 History rectal cream vitamin B complex 1 tablet PO DAILY 07/24/24 12/07/24 12/07/24 History doxepin 10 mg capsule 10 mg PO QHS 08/13/24 12/07/24 12/06/24 History cariprazine 6 mg capsule (Vraylar) 6 mg PO DAILY 09/21/24 12/07/24 12/07/24 History Allergies Allergy/AdvReac Type Severity Reaction Status Date / Time sunflower oil Allergy Intermediate Hives Verified 02/25/25 10:53 sumatriptan (From Imitrex) AdvReac Intermediate Muscle Verified 02/25/25 10:53 Spasms Review of Systems Review of Systems: All systems reviewed & are unremarkable except as noted in HPI and below Constitutional: Constitutional: Denies chills, Denies fatigue, Denies fever(s), Denies headache(s), Denies malaise and Denies weakness Eyes: Eyes: Denies blurry vision, Denies itchy eyes and Denies loss of vision ENT: Reports otalgia, Denies headache(s), Reports nasal congestion, Denies sinus pain, Reports sinus pressure and Denies sore throat Cardiovascular: Cardiovascular: Denies chest pain, Denies irregular heart rhythm and Denies dyspnea Respiratory: Respiratory: Reports cough and Denies dyspnea Gastrointestinal: Gastrointestinal: Denies abdominal pain, Reports diarrhea, Denies nausea and Denies vomiting Musculoskeletal: Musculoskeletal: Denies back pain, Reports myalgias and Denies arthralgias Integumentary/Breasts: Skin/Breast: Denies pruritus and Denies rash Neurologic: Denies headache(s), Denies loss of vision and Denies weakness Psychiatric: Psychiatric: Reports no additional psychiatric complaints Endocrine: Endocrine: Denies fatigue Allergic/Immunologic: Allergic/Immunologic: Denies itchy eyes PMFSH Past Medical History Medical History Type 2 diabetes mellitus (~2006) Rectal bleeding Left knee pain Medial meniscus tear Chronic nausea Gastroesophageal reflux disease Esophageal varices determined by endoscopy Irritable bowel syndrome with alternating bowel habits Portal hypertensive gastropathy Cirrhosis Bipolar 2 disorder Alopecia Cat scratch of forearm Body mass index (BMI) 35 or more (05/05/19) Vaginal yeast infection Type 2 diabetes mellitus with hyperglycemia Benign essential hypertension Abnormal vaginal bleeding Abnormal CT of brain Nausea & vomiting Hx of renal calculi (~07/2021) Portal hypertension (~07/2021) Chronic GERD Ganglion cyst Vitamin D deficiency Dyslipidemia BMI 40.0-44.9, adult Anxiety and depression HTN (hypertension) Type 2 diabetes mellitus with other circulatory complications (~2006) Avulsion fracture of right calcaneus with delayed healing (~2016) Other and unspecified hyperlipidemia (~2018) Hypertension complicating diabetes (~2013) Iron deficiency anemia due to chronic blood loss (~2016) 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: [facility] Microalbuminuria due to type 2 diabetes mellitus (~2017) Migraine without aura, not intractable, with status migrainosus (~1992) meds tried: midrin (helpful), imitrex (no help), zomig, topamax (helpful) Recurrent major depressive disorder in partial remission (~1992) Renal cyst, acquired (~2011) Hyperlipidemia associated with type 2 diabetes mellitus (~2018) Unspecified cirrhosis of liver (~2014) LOVE Surgical History Surgical History History of urethral stent (~07/2021) H/O: hysterectomy H/O left knee surgery Status post right foot surgery (~2017) History of cholecystectomy (~2017) Family History Family History Father Hypertension Cerebrovascular accident Family history of diabetes mellitus in first degree relative Diabetes mellitus Mother Hypertension Other Family history of Alzheimer's disease Family history of cardiovascular disease Family history of chronic obstructive pulmonary disease Family history of congestive heart failure Family history of hearing loss Family history of migraine headaches Family history of obesity Social History Social History Social History: , no children. Unemployed. Caffeine-rarely Smoking packs per day: 1 Smoking cigarettes per day: 20.0 Years smoked: 13 Smoking pack-years: 13.00 Smoking status: Former smoker Tobacco type: e-cigarettes/vaping Smoking end date: 10/14/06 Alcohol intake: never Substance use: never Substance use type: does not use Last use: Quit 1996 Do You Feel Safe in your Home?: Yes Lack of Transportation: No Lack of Food: Never True Current Housing: I Have Housing Concerned About Future Housing: No Difficulty Paying Gas/Electric Bills: No Difficulty Paying for Meds: No Currently Unemployed: Decline to Answer Education: Associate Degree Living arrangements: with family Additional living arrangements comments: lives with soon to be x- Occupation/Education: occupation Gender identity (if verbalized by the patient): Female Spiritual care concerns: No Agree to blood products: Yes Comments At time of signature, agree with nursing past medical, surgical, social and family history. There is no relevant family history pertinent to the presenting complaint. Exam Const: General: cooperative, healthy appearing, comfortable, no acute distress and well nourished Nutritional Appearance: well nourished Orientation/consciousness: patient oriented x3 Limitations: no limitations HENMT: Head: normal to inspection, normocephalic and atraumatic Ears: hearing grossly normal bilaterally, external ears normal, TM's normal bilaterally, EAC's normal and no periauricular adenopathy Face/Nose/Sinus: Normal external nose present, Abnormal mucous membranes and turbinates present erythematous bilateral and diffuse, normal facial exam, sinuses nontender and face symmetric Face and sinus: normal facial exam, sinuses nontender and face symmetric Mouth: Yes Normal oral and palatal mucosa present, Yes lip normal, Yes tongue normal, Yes Normal salivary glands and ducts present, Yes oropharynx normal and Yes moist mucous membranes Teeth and gingiva: dentition normal Throat: posterior oropharynx normal, tonsils normal and uvula midline Eyes: General: appearance normal, both eyes and all related structures Alignment and Position: alignment normal and position normal Periorbital: periorbital findings normal Eyelids: eyelids normal Pupils: Equal, round and reactive pupils present Neck: Neck: normal visual inspection, full ROM, no lymphadenopathy and supple Chest: Chest palpation & inspection: normal inspection of the chest and normal palpation of entire chest wall Resp: Effort & Inspection: normal respiratory effort and able to speak in complete sentences Auscultation: clear to auscultation bilaterally, no crackles, no rales, no rhonchi and no wheezes Cardio: Rate: regular rate Rhythm: regular rhythm Heart sounds: S1 normal heart sound present and S2 normal heart sound present GI: Inspection: normal to inspection Skin: General skin exam: normal color and no rashes or lesions noted Neuro: General: patient oriented x3 and moves all extremities Cranial nerves: Yes Equal, round and reactive pupils present Speech: normal speech Gait exam (Neuro): Normal gait present Extrem: General: normal to inspection, full ROM and no edema Psych: Appearance: grossly normal and well kempt Mental Status: mental status grossly normal Speech and movement: Normal speech and movement present Affect: normal affect Attitude: cooperative Thought process: Normal thought process present Course Course Emergency Course: Discharge instructions reviewed with patient, as well as provided in writing per nursing staff. The instructions also include specific and strict return/GO TO THE ER as well as f/u information. All questions have been answered, and the patient deny any further questions with discharge and discharge plan. Portions of this record may have been created with voice recognition software Level of Care: Express Care Visit Vital Signs Vital signs: Vital Signs Temperature 36.7 C 05/15/25 11:01 Pulse Rate 83 02/25/25 11:01 Respiratory Rate 20 02/25/25 11:01 Blood Pressure 110/70 02/25/25 11:01 Pulse Oximetry 100 02/25/25 11:01 Oxygen Delivery Room Air 02/25/25 11:01 Temperature 36.7 C 02/25/25 11:01 Pulse Rate 83 02/25/25 11:01 Respiratory Rate 20 02/25/25 11:01 Blood Pressure 110/70 02/25/25 11:01 Pulse Oximetry 100 02/25/25 11:01 Oxygen Delivery Room Air 02/25/25 11:01 Reviewed MDM - URI/Sore Throat MDM Narrative Medical decision making narrative: Pt well hydrated appearing, in no respiratory distress, hemodynamically stable. Recommend supportive care. The patient is stable at time of discharge the clinical impression was discussed and the patient was given the opportunity to ask questions, which were addressed as completely as possible given the information available at present. Anticipatory guidance and return to care precautions were discussed and the importance of primary care follow-up was stressed and encouraged. The patient voiced understanding of the plan, indications to return, and the need for follow-up. Exam findings show no acute concerns or changes Patient is appropriate for outpatient treatment and follow-up. Differential diagnosis considered: Villar virus, strep pharyngitis, allergic rhinitis, upper respiratory tract infection, sinusitis, rhinosinusitis, nasopharyngitis. viral pharyngitis, otitis media, otitis externa, otitis effusion, foreign body, cerumen impaction, viral syndrome, and influenza. Medical Records Attestation: I reviewed the patient's medical records. Lab Data Attestation: I reviewed the patient's lab results. Labs: Lab Results 02/25/25 Range/Units 11:10 POC Influenza A Ag Negative (Negative) POC Influenza B Ag Negative (Negative) POC SARS CoV-2 Ag Negative (Negative) Discharge Plan Discharge Clinical Impression: Upper respiratory tract infection Qualifiers: URI type: unspecified viral URI Qualified Code(s): J06.9 - Acute upper respiratory infection, unspecified Patient Disposition: Home Condition: Stable Instructions: Upper Respiratory Infection (ED) Additional Instructions: Your Covid and flu are both negative Your symptoms are likely due to a viral illness, which is not treated with antibiotics. Viral symptoms can be present for up to a few weeks. -For pain/fever, you may take: Tylenol 650-1000mg by mouth every 4-6 hours. Do not exceed 4000mg in 24 hours. Advil (Ibuprofen) 600 mg by mouth every 6 hours. Do not exceed 2400mg in 24 hours. 8 AM: Tylenol 11 AM: Ibuprofen 2 PM: Tylenol 5 PM: Ibuprofen 8 PM: Tylenol 11 PM: Ibuprofen 2 AM: Tylenol 5 AM: Ibuprofen -Antihistamine medication such as Benadryl/Zyrtec at night and Claritin/Leigh during the day can help improve symptoms. -Use Flonase twice a day for 5 days then daily to help reduce the inflammation and dry up your sinuses. -You can also use Sudafed behind the pharmacy counter(12 or 24 hour). Be sure to drink plenty of water with these medications at least 8 ounces with every dose and it is important to drink 8 to 10 glasses of water per day. Water is a natural decongestant -Eat and drink things that are easy to swallow, like tea or soup, or popsicles. -Oral rinses such as: Salt water gargles and/or may use topical anesthetic (eg. Chloraseptic spray) or lozenges to relieve dryness or throat pain). -Frequent hand washing or hand licensed clinician is one of the best ways to prevent spread of infection. -Using a vaporizer or humidifier at night will also help thin secretions and help with coughing up phlegm. Call your Primary Care Doctor and make a follow-up appointment in 3 days. If your cough worsens, you develop a fever greater than 103, you develop shaking chills, a fast heartbeat, trouble breathing and/or feel you are are breathing much faster than usual, call your Primary Care Doctor or go to the ER. Patient Language: Estonian Prescriptions: New fluticasone propionate [Flonase Allergy Relief] 50 mcg/actuation spray,suspension 1 spray intranasal DAILY Qty: 16 0RF Rx Instructions: administer into each nostril No Action (DME) OneTouch Verio test strips Strip See Rx Instructions .Route Qty: 100 11RF Rx Instructions: Monitor glucose 3-4 times a day prazosin 2 mg capsule 2 mg PO QHS doxepin 10 mg capsule 10 mg PO QHS (DME) Dexcom G7 Sensor Device See Rx Instructions .ROUTE .MEDSUPPLY Qty: 9 3RF Rx Instructions: Use to monitor glcuose Vraylar 6 mg capsule 6 mg PO DAILY Baqsimi 3 mg/actuation spray,non-aerosol 3 mg intranasal ONCE PRN (Reason: hypoglycemia) Qty: 1 0RF Rx Instructions: as a single dose buspirone 15 mg tablet 15 mg PO BID Humulin R U-500 (Conc) Kwikpen 500 unit/mL (3 mL) insulin pen See Rx Instructions .ROUTE .COMPLEX Qty: 39 0RF Dose Instruction: INJECT 70 UNITS SUBCUTANEOUSLY THREE TIMES DAILY WITH MEALS Rx Instructions: Sliding scale BID-TID carvedilol 3.125 mg tablet 3.125 mg PO Q12H Qty: 180 1RF Rx Instructions: must administer with a meal/food bisacodyl 10 mg suppository 10 mg RECTAL DAILY PRN (Reason: constipation) Qty: 12 0RF Rx Instructions: Insert 1 suppository in rectum if no BM in 72 hours bisacodyl 5 mg tablet,delayed release (DR/EC) 5 mg PO ONCE Qty: 20 0RF Rx Instructions: Take one tablet if no BM in 24 hours diphenhydramine HCl [Benadryl] 25 mg Capsule 25 mg PO TID PRN (Reason: itching) lidocaine HCl-hydrocortison ac 3-0.5 % cream 1 applic RECTAL BID PRN (Reason: Pain) ferrous sulfate 325 mg (65 mg iron) Tablet 325 mg PO DAILY vitamin B complex [B Complex-Vitamin B12] Tablet 1 tablet PO DAILY cholecalciferol (vitamin D3) [Vitamin D3] 50 mcg (2,000 unit) Capsule 50 mcg PO DAILY duloxetine 30 mg capsule,delayed release(DR/EC) 30 mg PO BID Qty: 180 1RF (DME) pen needle, diabetic [BD Ultra-Fine Shantelle Pen Needle] 32 gauge x 5/32 needle See Rx Instructions .ROUTE .MEDSUPPLY Qty: 300 1RF Rx Instructions: three times daily hydroxyzine pamoate [Vistaril] 25 mg capsule 50 mg PO Q4H PRN (Reason: Anxiety) albuterol sulfate 90 mcg/actuation HFA aerosol inhaler 1 puff INHALATION Q4H PRN (Reason: shortness of breath or wheezing) Qty: 6.7 1RF dexlansoprazole 60 mg capsule,biphase delayed releas 60 mg PO DAILY 30 Days Qty: 30 12RF Mounjaro 10 mg/0.5 mL pen injector 10 mg subcut WEEKLY Qty: 6 1RF cyclobenzaprine 10 mg tablet 10 mg PO TID PRN (Reason: muscle spasm) Qty: 60 1RF rizatriptan 5 mg tablet See Rx Instructions PO .COMPLEX PRN (Reason: Migraine Headache) Qty: 10 5RF Rx Instructions: take 1 tab at onset of headache; if no relief may repeat 1 tab after at least 2 hrs; max = 3 tabs/24 hr PO folic acid 1 mg tablet 1 mg PO DAILY Qty: 90 1RF atorvastatin 80 mg tablet 80 mg PO QHS Qty: 90 1RF Jardiance 25 mg tablet 25 mg PO DAILY Qty: 90 1RF lisinopril 2.5 mg tablet See Rx Instructions .ROUTE .COMPLEX Qty: 90 0RF Dose Instruction: Take 1 tablet by mouth once daily Rx Instructions: Take 1 tablet by mouth once daily pantoprazole 40 mg tablet,delayed release (DR/EC) See Rx Instructions .ROUTE .COMPLEX Qty: 90 1RF Dose Instruction: TAKE 1 TABLET BY MOUTH IN THE MORNING Rx Instructions: TAKE 1 TABLET BY MOUTH IN THE MORNING topiramate 200 mg tablet See Rx Instructions .ROUTE .COMPLEX Qty: 90 1RF Dose Instruction: Take 1 tablet by mouth once daily Rx Instructions: Take 1 tablet by mouth once daily Follow-up/Referrals: Karin Hoyt MD [Primary Care Provider] - 3 Days Time of Disposition: 11:58
[2025-02-25 11:01] VITALS: BP 110/70; PULSE 83; RESP 20; TEMP 36.7; O2SAT 100
[2025-02-25 11:33] LABS: EDCOVIDSCREEN Negative (Negative); EDINFLUASCREEN Negative (Negative); EDINFLUBSCREEN Negative (Negative)
== END 2025-02-25 12:00 | disposition home or self-care (01) ==
PROVIDERS: Emergency Provider Nurse Practitioner Family; PCP Family Medicine
DX: J06.9 Acute upper respiratory infection, unspecified (principal); Z20.822 Contact with and (suspected) exposure to COVID-19; Z87.891 Personal history of nicotine dependence; K21.9 Gastro-esophageal reflux disease without esophagitis; K75.81 Nonalcoholic steatohepatitis (NASH); L65.9 Nonscarring hair loss, unspecified; I10 Essential (primary) hypertension; E78.5 Hyperlipidemia, unspecified; E11.9 Type 2 diabetes mellitus without complications; Z79.84 Long term (current) use of oral hypoglycemic drugs; Z79.4 Long term (current) use of insulin; Z79.85 Long-term (current) use of injectable non-insulin antidiabetic drugs; D50.0 Iron deficiency anemia secondary to blood loss (chronic); F32.A Depression, unspecified; F41.9 Anxiety disorder, unspecified
CPT/HCPCS: 87426; 87804; 99213; G0463

== ENCOUNTER 2025-03-04 17:28 | Observation (INO) | payer OTHER, SELFPAY ==
--- NOTE | ~2025-03-04 | XR_ITS ---
XR abdomen/kub 1V 03/05/2025 06:57 INDICATION: Evaluate right ureteral stent position TECHNIQUE: KUB COMPARISON: 01/12/2025 FINDINGS: Bowel gas pattern is normal. There is no evidence of free air, mass, organomegaly, ascites or obstruction. Kidneys are obscured by bowel content. There is a possible right renal stone. No def inite stones are identified in the expected course of the ureters. There are cholecystectomy clips. T here is dextroscoliosis of the lumbar spine with dextroscoliosis. No acute osseous abnormality.. The bones appear intact. IMPRESSION: 1: Possible right nephrolithiasis. Reviewed, dictated and finalized at location B.
--- NOTE | ~2025-03-04 | CT_ITS ---
CLINICAL INDICATION: Right lower quadrant and right flank pain with hematuria COMPARISON: 01/12/2025. Reference is also made to a renal ultrasound dated 12/06/2022 TECHNIQUE: Multiple contiguous axial images of the abdomen and pelvis were performed without the admi nistration of intravenous contrast The dose-length product (DLP) was 223.54 mGy-cm. Automated exposure control and iterative reconstruction technique were employed. FINDINGS/OBSERVATIONS: Visualized lower thorax: The bilateral lung bases are clear. The heart is of normal size, without pericardial effusion. Small hiatal hernia is present. Liver: The liver demonstrates homogeneous attenuation and is not enlarged. Gallbladder and biliary system: The gallbladder is surgically absent. Pancreas: Limited evaluation of the pancreas secondary to the lack of intravenous contrast. Spleen: The spleen demonstrates homogeneous attenuation and is significantly enlarged measuring 18 cm in long itudinal dimension. Kidneys: 8 mm nonobstructing calculus within the upper pole of the right kidney. 3 mm nonobstructing calculus within the lower pole of the right kidney. 2 mm nonobstructing calculus within the interpolar region of the right kidney. Mild right-sided hydroureteronephrosis secondary to a 5 mm bilobed calculus within the proximal right ureter. No left-sided hydronephrosis or hydroureter. A 24 mm focus of fluid attenuation is identified within the lower pole of the left kidney consistent with a simple cyst, unchanged from 12/06/2022 renal ultrasound. Adrenal glands: Unremarkable. Gastrointestinal tract: Mural thickening and surrounding inflammatory change is identified within the ascending colon at the level of the hepatic flexure, likely reactive to the retroperitoneal inflammation within the right ki dney. No significant diverticula are identified. Appendix: The air-filled appendix is of normal caliber (axial series, images 104 through 114) Vasculature: Unremarkable. Lymph nodes: No pathologically enlarged or morphologically suspicious lymph nodes within the retroperitoneum or at the root of the mesentery. Pelvic structures: The bladder is only minimally distended, and otherwise unremarkable. The uterus is surgically absent. Body wall and musculoskeletal: No significant degenerative disease within the lower thoracic or lumbosacral spine. IMPRESSION: Mild right-sided hydroureteronephrosis secondary to a 5 mm bilobed calculus within the proximal to mi d right ureter. Reviewed, dictated and finalized at location A. IMPRESSION: Mild right-sided hydroureteronephrosis secondary to a 5 mm bilobed calculus wit hin the proximal to mid right ureter.
--- NOTE | ~2025-03-04 | XR_ITS ---
INTRAOPERATIVE FLUOROSCOPY: CLINICAL HISTORY: 44 years old Female; RIGHT URETERAL STONE EXTRACTION PROCEDURE COMMENTS: Limited intraoperative fluoroscopy of the lower abdomen and pelvis was performed. CUMULATIVE DOSE: 6.2 mGy FLUOROSCOPY TIME: 19.4 seconds FINDINGS/IMPRESSION: Please refer to operative note for further details. Reviewed, dictated and finalized at location A.
--- OUTSIDE RECORDS SUMMARY | 2025-03-04 17:30 | XMS_ITS | Clinical Summary ---
Author Organization [facility] [employer] Address [address] [place] [address] Care Team Providers Care Broomcorn Grader Name Role Phone Sadia Morris Primary Care Provider [phone] Sadia Morris Unavailable Source Comments [facility],non-owned Affiliates and Associated Physician Practices is amultiple site organization consisting of ambulatory clinics and hospital sitesin [place], [place], [place] and [place]. This disclosure is being madepursuant to the Care Everywhere program and may not contain all information available regarding this patient. Last updated 18.[facility] [employer] Allergies Active Allergy Reactions Criticality Noted Date Comments Sumatriptan Myalgias 03/15/2023 Sumatriptan Headache 10/07/2024 [place] Oil Rash,Itching,Skin Reactions Medium 08/01/2017 actual sunflowers themselves [place] Oil Nausea and/or Vomiting 10/07/2024 Medications * Be aware that medications may not be up to date on this document. Alwaysverify current medications with the patient. cyclobenzaprine (FLEXERIL) 10 MG tablet Take 1 [...] as needed Active Glucagon 3 MG/DOSE POWD [place] 3 mg into the nose as needed [...] 10 (ten) mg subcutaneously every 7 days (once a week) Active busPIRone (Buspar) 15 MG tablet Take [...] Sulfate (IRON PO) Active Continuous Glucose Sensor (Impactia G7 Sensor) [facility] APPLY 1 SENSOR TOPICALLY, CHANGE AND REPLACE EVERY 10 DAYS. USE TO MONITOR GLUCOSE. 09/01/20 24 Active nystatin (Mycostatin) 293371 UNIT/GM cream Apply to affected area 2 times daily 11/24/19 25 Active rizatriptan (Maxalt) 5 MG tablet Take 1 (one) tablet by mouth once 11/20/19 25 Active carvedilol (Coreg) 6.25 MG tablet Take 1 (one) tablet by mouth 2 times daily with morning and evening meal 180 tablet 3 12/16/19 25 Active Active Problems Problem Noted Date Diagnosed [...] 2 diabetes mellitus without complications 0 11/16/2017 Overview (01/13/2025): IMO 01/13/2025 Resolved Problems Problem Noted Date Diagnosed Date Resolved Date Acute gastrointestinal bleeding 10/06/2024 12/15/2024 Hepatic cirrhosis, unspecifi ed hepatic cirrhosis type, unspecified whether ascites present 03/27/2022 05/31/2022 Gastrointestinal hemorrhage, unspecified gastrointestinal hemorrhage type 03/27/2022 025 Cirrhosis of liver 11/16/2017 Overview (01/13/2018): Liver biopsy performed during cholecystectomy noted evidence of steatohepatitis with bridging fibrosis. Right upper quadrant pain 08/01/2017 Encounters Date Type Department Care Team Description 02/01/2025 9:31 AM CDT Anesthesia Event [facility] ENDOSCOPY [address] [place] [address] Ninfa Cruz MD Robb, Romina Adams APRN-WAREHOUSE FREIGHT HANDLER 02/01/2025 9:00 AM CDT - 02/01/2025 9:30 AM CDT Surgery [facility] ENDOSCOPY [address] [place] [address] Salomon Sapp MD EGD +/- banding w/ renettafeler 02/01/2025 7:50 AM CDT - 02/01/2025 10:34 AM CDT Hospital Encounter [facility] LIBAN OP [address] [place] [address] Salomon Sapp MD Surgery General Discharge Disposition: Home or Self Care 02/01/2025 Travel 01/21/2025 Orders Only [facility] - GI [address] [place] [address] Salomon Sapp MD 12/15/2024 9:30 AM SPOOLING OPERATOR Office Visit [facility] - GI [address] [place] [address] Salomon Sapp MD 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 Not hard at all 10/07/2024 [facility] - Occup[facility] Stress [...] any time in the past 12 m [facility], were you homeless or living in a [facility] (including now)? No 10/07/2024 Comments No Sex and Gender Information Value Date Recorded Sex Assigned at Female 04/21/2024 2:38 PM CDT Legal Sex Female 5:23 PM SPOOLING OPERATOR Gender Identity Female 04/21/2024 2:38 PM CDT Sexual Orientation Straight 04/21/2024 2: 38 PM CDT Last Filed Vital Signs Vital Sign Reading Time Taken Comments Blood Pressure 135/75 02/01/2025 10:18 AM CDT Pulse 80 02/01/2025 10:18 AM CDT Temperature 35.8 C (96.5 F) 02/01/2025 9:50 AM CDT Respiratory Rate 10 02/01/2025 10:1 8 AM CDT Oxygen Saturation 96% 02/01/2025 10: 18 AM CDT Inhaled Oxygen Concentration - - Weight 94.2 kg (207 lb 11.2 oz) 02/01/2025 9:01 AM CDT Height 157.5 cm (5' 2 ) 02/01/2025 9:01 AM CDT Body Mass Index 37.99 02/01/2025 9:01 AM CDT Plan of Treatment Upcoming Encounters Date Type Department Care Team (Latest Contact Info) Description 03/19/2025 11:30 AM CDT Appointment [facility] MRI [address] [place] [address] Salomon Sapp MD [address] [place] [address] 05/03/2025 10:30 AM CDT Hospital Encounter [facility] ENDOSCOPY [address] [place] [address] Salomon Sapp MD [address] [place] [address] [address] [place] [address] Surgery General 05/03/2025 10:30 AM CDT - 05/03/2025 11:00 AM CDT Surgery [facility] ENDOSCOPY [facility] [place] [phone] Salomon Sapp MD [address] [place] [address] [address] [place] [address] EGD +/- banding w/ Sekou 05/07/2025 12:30 PM CDT Office Visit [facility] - GI [address] [place] [phone] Salomon Sapp MD [address] [place] [address] [address] [place] [address] 09/24/2025 9:30 AM SPOOLING OPERATOR Appointment [facility] [place] [phone] Salomon Sapp MD [address] [place] [address] [address] [place] [address] 09/24/2025 10:30 AM SPOOLING OPERATOR Office Visit [facility] - GI [address] [place] [phone] Salomon Sapp MD [address] [place] [address] [address] [place] [address] Scheduled Procedures Name Priority Associated Diagnoses Date/Ti me ESOPHAGOGASTRODUODENOSCOPY ( EGD) DIAGNOSTIC Esophageal varices without bleeding, unspecified esophageal varices type (HCC) 05/03/2025 10:30 AM CDT Health Maintenance Due Date Last [...] 12/04/2018 COVID-19 VACCINE (1 - season) 2024 DIABETES - URINE PROTEIN SCREENING 10/14/2024 DIABETES-HGB A1C 04/08/2025 10/08/2024, , 06/02/2021, Additional history exists INFLUENZA VACCINE (Season Ended) 2025 07/15/2020, 09/14/2019 DIABETES-SERUM CREATININE 01/21/20262024, 01/21/2025, 10/11/2024, Additional history exists ZOSTER VACCINE (1 of [...] Management General On track( 025 9:52 AM SPOOLING OPERATOR) Mary Kay Andrade, RN Note: Expected end date: ongoing Interventions: Take all medications as prescribed Let your doctor know right away about any changes in your medications Make sure to request a refill of your medication at least one week prior to your last dose Procedures Procedure Name Priority Date/Time Associated Diagnosis Comments EGD Routine 02/01/2025 9:33 AM CDT [place] [facility] EGD FLEX TRANSORAL DX 02/01/2025 9:26 AM CDT Esophageal varices without bleeding, unspecified esophageal varices type (HCC) Special Needs EGD January Raegan Received: Yesterday Makayla Pacheco, RN P [facility] Schedulers - Endoscopy [facility] [place], Please schedule an EGD for Dr. Sapp in January. Makayla Garcia Received Date Received Time Dec 15, 2024 4:51 PM GLUCOSE - POINT OF CARE Routine 02/01/2025 8:55 AM CDT PT-INR 01/21/2025 12:20 PM CDT FERRITIN 01/21/2025 12:19 PM CDT PLATELET ESTIMATION 01/21/2025 12:17 PM CDT ALPHA FETOPROTEIN BLOOD TUMOR MARKER 01/21/2025 12:17 PM CDT CBC W AUTO DIFFERENTIAL 01/21/2025 12:17 PM CDT COMPREHENSIVE METABOLIC PANEL 01/21/2025 12:17 PM CDT HEMOGLOBIN A1C Routine 10/08/2024 9:31 AM SPOOLING OPERATOR ENDOSCOPY, COLON, DIAGNOSTIC Routine 08/27/2022 12:28 PM SPOOLING OPERATOR HEPATITIS C ANTIBODY Routine 11/14/2017 10:15 AM SPOOLING OPERATOR from Last 3 Months or Most Recently Relevant to Health Maintenance Results * EGD (02/01/2025 9:33 AM CDT) Report Endoscopy POC Endoscopy Department Report _ Patient Name: Beulah Garcia Procedure Date: 02/01/2025 9:33 AM Date of : 1980 Classification: Outpatient Gender: Female Ethnicity: Not or Race: White _ Providers: Salomon Sapp MD Referring MD: Procedure: Upper GI endoscopy Indications: Esophageal varices, Follow-up of esophageal varices, For therapy of esophageal varices Medications: Monitored Anesthesia Care Description of Procedure: [...] Prior Anticoagulants: The patient has taken no anticoagulant or antiplatelet agents. ASA Grade Assessment: III - A patient with severe systemic disease. After reviewing the risks and benefits, the patient was deemed in satisfactory condition to undergo the procedure. - Prior Aspirin/ NSAID therapy: The patient has taken no aspirin or NSAID medications. After obtaining informed consent, the endoscope was passed under direct vision. Throughout the procedure, the patient's blood pressure, pulse, and oxygen saturations were monitored continuously. The [id number]-[id number] was introduced through the mouth, and advanced to the second part of duodenum. The upper GI endoscopy was accomplished without difficulty. The patient tolerated the procedure well. Findings: Grade I varices were found in the lower third of the esophagus. They were large in size. Three bands were successfully placed with complete eradication, resulting in deflation of varices. There was no bleeding during and at the end of the procedure. A small post variceal banding scar was found in the lower third of the esophagus. The scar tissue was healthy in appearance. The Z-line was regular and was found 38 cm from the incisors. Mild portal hypertensive gastropathy was found in the gastric body. Striped moderately erythematous mucosa without bleeding was found in the gastric antrum. The cardia and gastric fundus were normal on retroflexion. The examined duodenum was normal. Estimated Blood Loss: Estimated blood loss was minimal. Complications: No immediate complications. Impression: - Grade I esophageal varices. Completely eradicated. Banded. - Scar in the lower third of the esophagus. - Z-line regular, 38 cm from the incisors. - Portal hypertensive gastropathy. - Erythematous mucosa in the antrum. - Normal examined duodenum. - No specimens collected. Recommendation: - Patient has a contact number available for emergencies. The signs and symptoms of potential delayed complications were discussed with the patient. Return to normal activities tomorrow. Written discharge instructions were provided to the patient. - Mechanical soft diet for 1 day, then chew food well for next 30 days. - Continue present medications. - Repeat upper endoscopy in 3 months for endoscopic band ligation. - Return to liver clinic as previously scheduled. Attending Participation: I personally performed the entire procedure. Procedure Code(s): --- Professional --- 86629, Esophagogastroduo denoscopy, flexible, transoral; with band ligation of esophageal/gastri c varices Diagnosis Code(s): --- Professional --- I85.00, Esophageal varices without bleeding K22.89, Other specified disease of esophagus K76.6, Portal hypertension K31.89, Other diseases of stomach and duodenum CPT copyright 2021 [employer]. All rights reserved. The codes documented in this report are preliminary and upon cardiopulmonary physical therapist review may be revised to meet current compliance requirements. _ Salomon Sapp MD 02/01/2025 9:52:30 AM This report has been signed electronically. Note Initiated On: 02/01/2025 9:33 AM Number of Addenda: [address] PROVATION 02/01/2025 9:33 AM CDT us Salomon Sapp MD GI PROCEDURE ORDERABLES Edited Result - Final [facility] PROVATION * (ABNORMAL) GLUCOSE - POINT OF CARE (02/01/2025 8:55 AM CDT) Glucose WB/POC 155(H) 70 - 99 mg/dL 02/01/2025 11:56 AM CDT [facility] Specimen Type Cap Fingerstick 2024 11:56 AM CDT [facility] Blood BLOOD SPECIMEN / Unknown 02/01/2025 8:55 AM CDT 02/01/2025 11:56 AM CDT us Salomon Sapp MD LAB - POINT OF CARE ORDERABLES Final Result Performing Organization Address City/[facility]/ZIP Co de Phone Number [facility] [address] [address], [facility] [phone] * (ABNORMAL) PT-INR (01/21/2025 12:20 PM CDT) INR 1.2(H) [facility] Comment: Reference Range 0.9-1.1 Moderate-intensity Warfarin Therapy 2.0-3.0 Higher-intensity Warfarin Therapy 3.0-4.0 PT 12.6(H) 9.0 - 11.5 sec [facility] Comment: For additional information, please refer to http://education.[employer]faq/FTF372 (This link is being provided for informational/ educational purposes only.) REPORT COMMENT: NAME BRAND AN UPDATE OR CORRECTION HAS BEEN MADE TO NAME Test Performed at: [facility] [address] GISSEL OLIVER MD 01/21/2025 12:2 0 PM CDT 01/21/2025 12:21 PM CDT us Salomon Sapp MD LAB - COAGULATION ORDERABLES F inal Result Performing Organization Address [facility] Co de Phone Number [facility] [id number] [place] [address] * FERRITIN (01/21/2025 12:19 PM CDT) [facility] Ferritin 27 16 - 232 ng/mL [facility] Comment: REPORT COMMENT: NAME BRAND Test Performed at: [facility] [address] [place] [address] GISSEL OLIVER MD 01/21/2025 12:1 9 PM CDT 01/21/2025 12:20 PM CDT us Salomon Sapp MD LAB - CHEMISTRY ORDERABLES Fin al Result Performing Organization Address [facility] [place] [place] [address] * (ABNORMAL) PLATELET ESTIMATION (01/21/2025 12:17 PM CDT) [facility] Platelet Estimation DECREASED (A) ADE[facility] Comment: Test Performed at: [facility] [address] GISSEL OLIVER MD 01/21/2025 12:1 7 PM CDT 01/21/2025 12:18 PM CDT us Salomon Sapp MD LAB - HEMATOLOGY ORDERABLES Fi nal Result Performing Organization Address [facility] [place] [place] [address] * ALPHA FETOPROTEIN BLOOD TUMOR MARKER (01/21/2025 12:17 PM CDT) [facility] Alpha-Fetoprotei n Tumor Marker 2.5 ng/mL [facility] Comment: Reference Range: <6.1 The use of AFP as a tumor marker in females is not recommended. This test was performed using the Maryellen Kemar chemiluminescent method. Values obtained from different assay methods cannot be used interchangeably. AFP levels, regardless of value, should not be interpreted as absolute evidence of the presence or absence of disease. REPORT COMMENT: NAME BRAND AN UPDATE OR CORRECTION HAS BEEN MADE TO NAME Test Performed at: [facility] [address] [place] [address] [facility] CAIO 01/21/2025 12:1 7 PM CDT 01/21/2025 12:18 PM CDT us Salomon Sapp MD LAB - CHEMISTRY ORDERABLES Fin al Result [facility] [address] [place] [address] * (ABNORMAL) CBC WITH DIFFERENTIAL (01/21/2025 12:17 PM CDT) White Blood Cell Count 3.7(L) 3.8 - 10.8 Thousand/ uL [facility] RBC 4.59 3.80 - 5.10 Million/u L [facility] Hemoglobin 11.9 11.7 - 15.5 g/dL [facility] Hematocrit 38.3 35.0 - 45.0 % [facility] MCV 83.4 80.0 - 100.0 fL [facility] MCH 25.9(L) 27.0 - 33.0 pg [facility] MCHC 31.1(L) 32.0 - 36.0 g/dL [facility] Comment: For adults, a slight decrease in the calculated MCHC value (in the range of 30 to 32 g/dL) is most likely not clinically significant; however, it should be interpreted with caution in correlation with other red cell parameters and the patient's clinical condition. RDW 14.3 11.0 - 15.0 % [facility] Platelet Count 68(L) 140 - 400 Thousand/ uL [facility] MPV 12.7(H) 7.5 - 12.5 fL [facility] Neutrophil Absolute 2664 1500 - 7800 cells/uL [facility] Absolute Bands [facility] Metamyelocytes Absolute [facility] Myelocytes Absolute [facility] Absolute Prolymphocytes [facility] Lymphocytes Absolute 781(L) 850 - 3900 cells/uL [facility] Absolute Monocytes 167(L) 200 - 950 cells/uL [facility] Eosinophils Absolute 70 15 - 500 cells/uL [facility] Basophils Absolute 19 0 - 200 cells/uL [facility] Absolute Blasts [facility] nRBC Absolute [facility] Granulocytes % 72.0 % [facility] Band Neutrophil [facility] Metamyelocytes [facility] Myelocytes [facility] Promyelocytes [facility] Lymphocytes % 21.1 % [facility] Lymphocyte Reactive [facility] Monocytes % 4.5 % [facility] Eosinophils % 1.9 % [facility] Basophils % 0.5 % [facility] Comment: Test Performed at: [facility] [address] [facility] [place] [address] GISSEL OLIVER MD Blasts [facility] nRBC [facility] Comments [facility] Comment: Test Performed at: [facility] [place] [address] GISSEL OLIVER MD 01/21/2025 12:1 7 PM CDT 01/21/2025 12:18 PM CDT Salomon Sapp MD LAB - HEMATOLOGY ORDERABLES Fi nal Result [facility] [address] [place] [address] * (ABNORMAL) COMPREHENSIVE METABOLIC PANEL (01/21/2025 12:17 PM CDT) Glucose 184(H) 65 - 99 mg/dL [facility] Comment: Fasting reference interval For someone without known diabetes, a glucose value >125 mg/dL indicates that they may have diabetes and this should be confirmed with a follow-up test. BUN 12 7 - 25 mg/dL [facility] Creatinine 0.93 0.50 - 0.99 mg/dL [facility] eGFR by Cystatin C 77 > OR = 60 mL/min/1. 73m2 [facility] BUN/Creatinine Ratio SEE NOTE: 6 - 22 (calc) [facility] Comment: Not Reported: BUN and Creatinine are within reference range. Sodium 143 135 - 146 mmol/L [facility] Potassium 3.5 3.5 - 5.3 mmol/L [facility] Chloride 108 98 - 110 mmol/L [facility] CO2 26 20 - 32 mmol/L [facility] Calcium 9.4 8.6 - 10.2 mg/dL [facility] Protein Total 6.7 6.1 - 8.1 g/dL [facility] Albumin 4.1 3.6 - 5.1 g/dL [facility] Globulin Total 2.6 1.9 - 3.7 g/dL (calc) [facility] Albumin/Globulin Ratio 1.6 1.0 - 2.5 (calc) [facility] Bilirubin Total 0.9 0.2 - 1.2 mg/dL [facility] Alkaline Phosphatase 91 31 - 125 U/L [facility] AST 38(H) 10 - 35 U/L [facility] ALT 36(H) 6 - 29 U/L [facility] Comment: Test Performed at: [facility] [address] [place] [address] GISSEL OLIVER MD 01/21/2025 12:1 7 PM CDT 01/21/2025 12:18 PM CDT Salomon Sapp MD LAB - CHEMISTRY ORDERABLES Fin al Result [facility] [id number] [place] [address] * HEMOGLOBIN A1C (10/08/2024 9:31 AM SPOOLING OPERATOR) Hemoglobin A1c 5.3 <=5.6 % 10/08/2024 1:40 PM SPOOLING OPERATOR [facility] Estimated Average Glucose 105 mg/dL 10/08/2024 1:40 PM SPOOLING OPERATOR [facility] Comment: HbA1c Interpretation: Normal : < 5.7% Pre-diabetes: 5.7-6.4% Diabetes: Equal to or greater than 6.5% Test results diagnostic of diabetes should be repeated for confirmation. Treatment target values recommended by ADA and other clinical organizations should be used to evaluate metabolic control in patients. Reference: [place] [employer], Standards of Care in Diabetes -2020 In patients 70 years and older consider HbA1c target range of 7.0-7.5% (Reference: Garcia Contreras et al. JAMDA. 2012) The Sebia assay for the measurement of HbA1c is a National Glycohemoglobin Standardization Program (NGSP) certified method. Blood BLOOD SPECIMEN / Unknown Lab Venipuncture / Unknown 10/08/2024 9:31 AM SPOOLING OPERATOR 10/08/2024 9:59 AM SPOOLING OPERATOR us Ron Dawson MD LAB - CHEMISTRY ORDERABLES Final Result [facility] [address] [place] [address], [facility] [phone] * ENDOSCOPY, COLON, DIAGNOSTIC (08/27/2022 12:28 PM SPOOLING OPERATOR) Report Endoscopy POC Endoscopy Department Report _ [...] entire procedure. Procedure Code(s): --- Professional --- 30990, Colonoscopy, flexible; with removal of tumor(s), polyp(s), or other lesion(s) by snare technique Diagnosis Code(s): --- Professional --- K63.5, Polyp of colon K64.4, Residual hemorrhoidal skin tags R10.84, Generalized abdominal pain K92.1, Melena (includes Hematochezia) CPT copyright 2019 [employer]. All rights reserved. The codes documented in this report are preliminary and upon cardiopulmonary physical therapist review may be revised to meet current compliance requirements. Salomon Sapp MD 08/27/2022 1:27:31 PM This report has been signed electronically. Note Initiated On: 08/27/2022 12:28 PM Number of Addenda: [address] [address] [facility] PROVATION 08/27/2022 12:2 8 PM SPOOLING OPERATOR Salomon Sapp MD GI PROCEDURE ORDERABLES Edited Result - Final [facility] * HEPATITIS C ANTIBODY (11/14/2017 10:15 AM SPOOLING OPERATOR) Hepatitis C Antibody Non-react vishal Non-reac tive [facility] Comment: Hepatitis C Antibody screen indicates no serologic evidence of past or current infection with Hepatitis C Virus. Patients with unexplained liver disease who are immunocompromised or suspected of having acute Hepatitis C infection may benefit from Nucleic Acid Test (USMAN) for Hepatitis C Viral RNA to confirm Hepatitis C status. Blood specimen (specimen) BLOOD SPECIMEN / Unknown 11/14/2017 10:15 AM SPOOLING OPERATOR 11/14/2017 11:03 AM SPOOLING OPERATOR us Verito Mcclendon MD LAB - CHEMISTRY ORDERABLES Final Result [address] [phone] from Last 3 Months or Most Recently Relevant to Health Maintenance Insurance [facility] Advance Directives * Full Code (Latest Code Status on File) Date Activated Date Inactivated Comments 10/07/2024 6:10 PM 10/11/2024 5:22 PM Care Teams Broomcorn Grader Relationship Specialty Start Date End Date Sadia Morris [address] [place] [address] [address] [place] [address] PCP - General 09/13/24 Sadia Morris [address] [place] [address] [address] [place] [address] 09/13/24
--- OUTSIDE RECORDS SUMMARY | 2025-03-04 17:30 | XMS_ITS | Referral Summary ---
Author Organization [facility] Address [address] [place] [address] Care Team Providers Care Insulation Board Calender Operator Name Role Phone Sadia Morris NP Primary Care Provider + Allergies Active Allergy Reactions Criticality Noted Date Comments Sumatriptan Muscle pain,Other (See comments) Medium [place] Oil Hives Medium 02/13/2022 Medications cyclobenzaprine (FLEXERIL) [...] on file Legal Sex Female 11:18 PM PROPOSAL DEVELOPMENT MANAGER Gender Identity Not on file Sexual Orientation Not on file Last Filed Vital Signs Vital Sign Reading Time Taken Comments Blood Pressure 122/71 09/13/2024 3:03 PM PROPOSAL DEVELOPMENT MANAGER Pulse 64 09/13/2024 3:03 PM PROPOSAL DEVELOPMENT MANAGER Temperature 36.2 C (97.2 F) 09/13/2024 3:03 PM PROPOSAL DEVELOPMENT MANAGER Respiratory Rate 16 09/13/2024 3:03 PM PROPOSAL DEVELOPMENT MANAGER Oxygen Saturation 97% 09/13/2024 3:03 PM PROPOSAL DEVELOPMENT MANAGER Inhaled Oxygen Concentration - - Weight 90.3 kg (199 lb) 09/12/2024 2:18 AM PROPOSAL DEVELOPMENT MANAGER Height 157.5 cm (5' 2 ) 09/12/2024 2:18 AM PROPOSAL DEVELOPMENT MANAGER Body Mass Index 36.4 09/12/2024 2:18 AM PROPOSAL DEVELOPMENT MANAGER Plan of Treatment Not on file Procedures Procedure Name Priority Date/Time Associated Diagnosis Comments HEMOGLOBIN A1C Routine 09/12/2024 4:58 AM PROPOSAL DEVELOPMENT MANAGER EGFR STAT 09/11/2024 11:22 PM PROPOSAL DEVELOPMENT MANAGER from Last 3 Months or Most Recently Relevant to Health Maintenance Results * Hemoglobin A1c (09/12/2024 4:58 AM PROPOSAL DEVELOPMENT MANAGER) Hgb A1C 5.4 4.0 - 5.6 % Estimated Average Glucose 108 mg/dL JUDITH THOMPSON ([place]) Comment: The ADA recommends reporting an estimated Average Glucose (eAG) with all Hemoglobin A1c results using the equation derived from a study of 507 normal and diabetic adults. Minority populations were underrepresented and children were not included. (Diabetes Care 31:4728-3440, 2008). The eAG is not equivalent to a fasting glucose. Blood 09/12/2024 4:58 AM PROPOSAL DEVELOPMENT MANAGER 09/12/2024 5:07 AM PROPOSAL DEVELOPMENT MANAGER Dionicio Levin MD LAB BLOOD ORDERABLES Final Resu lt JUDITH THOMPSON ([place]) [address] [facility] Department of Laboratories [place], [place] [id number] * eGFR (09/11/2024 11:22 PM PROPOSAL DEVELOPMENT MANAGER) eGFR 69 >=60 mL/min/1. 73 m2 [...] reviewed 2021. Blood 09/11/2024 11:2 2 PM PROPOSAL DEVELOPMENT MANAGER 09/11/2024 11:22 PM PROPOSAL DEVELOPMENT MANAGER Valdez Lee MD LAB BLOOD ORDERABLES Final R esult [facility]) [address] [facility] [place] [address] from Last 3 Months or Most Recently Relevant to Health Maintenance Insurance Advance Directives For more information, please contact: [phone] * LIMITED - No CPR (Latest Code [...] 1:26 AM 09/12/2024 5:23 AM Care Teams Insulation Board Calender Operator Relationship Specialty Start Date End Date Sadia Morris NP [address] [facility] [address] [place] [address] [place] [id number] PCP - General Nurse Practitioner 02/28/24
--- OUTSIDE RECORDS SUMMARY | 2025-03-04 17:30 | XMS_ITS | Patient Health Record ---
Author Organization [facility] Address [address] [place] [address] Care Team Providers Care Foil Spooler Name Role Phone Allie Lopez Primary Care Provider [phone] Allergies Allergen (clinical drug ingredient) Drug/Non Drug Allergy documented on EMR Reaction Allergy Type Onset Date Status [place] Oil sunflower oil (uncoded) rash Allergy Active Reason For Referral No Information Medications Medication SIG (Take, Route, Frequency, Duration) Notes Start Date End Date Status Cariprazine HCl 6 MG 1 capsule Orally Once a day for 90 days Active Dexlansoprazole 60 MG 1 capsule Orally Once a day GERD Active Nicotine Step 1 21 MG/24HR 1 patch to skin Transdermal Once a day for 30 days 02/23/2025 Active Atorvastatin Calcium 80 MG 1 tablet Orally Once a day Hyperlipidemia Active Prazosin HCl 2 MG 1 capsule at bedtime Orally Once a day for 90 days Active Mounjaro Active Lisinopril 2.5 MG 1 tablet Orally Once a day HTN Active Doxepin HCl 25 MG 1 capsule at bedtime Orally Once a day for 90 days As needed Active Topiramate ER 200 MG 1 capsule Orally Once a day Migraine Active Folic Acid Active Propranolol HCl 10 MG 1 tablet Orally Once a day Migraine Not-Taking busPIRone HCl 15 MG 1 tablet Orally Twice a day for 90 days Active Pantoprazole Sodium Active Cyclobenzaprine HCl Active HumaLOG KwikPen 100 UNIT/ML as directed Subcutaneous 65 units BID Active Jardiance Active Vitamin D 25 MCG (1000 UT) 1 tablet Orally Once a day Not-Taking Excedrin Extra Strength migraine PRN Active Carvedilol HTN Active hydrOXYzine HCl 25 MG 1 tablet as needed Orally three times a day for 90 days Active DULoxetine HCl 30 MG 1 capsule Orally twice a day for 90 days Active Doxepin HCl 10 MG 1 capsule at bedtime Orally Once a day for 30 day(s) 07/29/2024 Active Nicotine Polacrilex 2 MG as directed Mouth/Throat every 4 hours for 3 days As needed please dispense whatever quantity/amount insurance will cover 02/23/2025 Active Social History Tobacco Use: Social History Observation Description Date Details (start date - stop date) Current Smoker 01/31/2025 - NA Tobacco Control (Standard) Question Answer Notes Tobacco use: Current smoker Additional Findings: Tobacco user e-cigarette When did you start smoking? 01/31/2025 How often do you smoke cigarettes? Every day How many cigarettes a day do you smoke? 11-20 How soon after you wake up d o you smoke your first cigarette? 6-30 minutes Are you interested in quitting? Thinking about q uitting Section Notes: NO ETOH since 2020. ETOH, Co jeevan, opium, cannabis in late teens and early 20's. NO ETOH since 2020. ETOH, Co jeevan, opium, cannabis in late teens and early 20's. NO ETOH since 2020. ETOH, Co jeevan, opium, cannabis in late teens and early 20's. NO ETOH since 2020. ETOH, Co jeevan, opium, cannabis in late teens and early 20's. NO ETOH since 2020. ETOH, Co jeevan, opium, cannabis in late teens and early 20's. NO ETOH since 2020. ETOH, Co jeevan, opium, cannabis in late teens and early 20's. NO ETOH since 2020. ETOH, Co jeevan, opium, cannabis in late teens and early 20's. NO ETOH since 2020. ETOH, Co jeevan, opium, cannabis in late teens and early 20's. NO ETOH since 2020. ETOH, Co jeevan, opium, cannabis in late teens and early 20's. NO ETOH since 2020. ETOH, Co jeevan, opium, cannabis in late teens and early 20's. NO ETOH since 2020. ETOH, Cocaine, opium, cannabis in late teens and early 20's. 5-2 and 230lb NO ETOH since 2020. ETOH, Cocaine, opium, cannabis in late teens and early 20's. 5-2 and 230lb NO ETOH since 2020. ETOH, Cocaine, opium, cannabis in late teens and early 20's. 5-2 and 230lb NO ETOH since 2020. ETOH, Cocaine, opium, cannabis in late teens and early 20's. 5-2 and 230lb NO ETOH since 2020. ETOH, Cocaine, opium, cannabis in late teens and early 20's. 5-2 and 230lb NO ETOH since 2020. ETOH, Cocaine, opium, cannabis in late teens and early 20's. 5-2 and 230lb Problems Problem Type SNOMED Code ICD Code Onset Dates Problem Status W/U Status Risk Notes Problem Generalized anxiety disorder (52136043) Generalized anxiety disorder (F41.1) Active confirmed Problem Bipolar 1 disorder (707485674) Bipolar 1 disorder (F31.9) Active confirmed Problem Nicotine addiction (F17.200) Active confirmed Encounters Encounter Location Date Provider Diagnosis [address] [address] 04/22/2024 Allie John Bipolar 1 disorder F31.[address] [address] 06/18/2024 Allie Phoenix Bipolar 1 disorder F31.[address] [address] 08/18/2024 Allie John Bipolar 1 disorder F31.9 and Nicotine addiction F17.[address] [address] 09/29/2024 Allie Phoenix Bipolar 1 disorder F31.9 and Nicotine addiction F17.[address] [address] 12/01/2024 Allie Phoenix Bipolar 1 disorder F31.[address] [address] 02/23/2025 Allie John Bipolar 1 disorder F31.9 and Nicotine addiction F17.200 On License Of [facility] [address] [place] [address] 04/13/2024 Allie Lopez [address] [place] [address] 05/08/2024 Allie Lopez Bipolar 1 disorder F31.9 [facility] [address] [place] [address] 07/28/2024 Allie Lopez [facility] [address] [place] [address] 10/12/2024 Allie Lopez Assessments Encounter Date Diagnosis (ICD Code) Assessment Notes Treatment Notes Treatment Clinical Notes Section Notes 04/22/2024 Bipolar 1 disorder (ICD-10 - F31.9) [...] 12/01/2024 Bipolar 1 disorder (ICD-10 - F31.9) 02/23/2025 Bipolar 1 disorder (ICD-10 - F31.9) 02/23/2025 Nicotine addiction (ICD-10 - F17.200) 09/29/2024 Nicotine addiction (ICD-10 - F17.200) 04/22/2024 [...] in mood or behavior. Confirmed knowledge of [facility] hotline [phone] for clients 20 and under and [place] Crisis line [phone] and awareness of 988. SSRI Discussed possible side effects: GI upset, headache, decreased libido/anorgasmia, weight gain, signs of serotonin syndrome and risk of activation to suicidality Plan Of Treatment No Information Insurance Providers Payer Name Payer Address Payer Phone Subscriber Number Group Number Insured Name Patient Relationship to Insured Coverage Start Date Coverage End Date [facility] Attn Claims Department [address] [place] [address] [phone] [id number] Beulah Fung Self - patient is the insured 3 [facility] Department [address] [place] [address] [phone] [id number] Beulah Fung Self - patient is the insured 3 Medical (General) History Medical History History ICD Code type II diabetes hypertension nephrolithiasis LOVE migraine headache Surgical History Surgery Date(Month/Year) hysterectomy due to fibroids 2018 cholecystectomy carpal/cubital tunnel Hospitalization History Reason Date(Month/Year) suicide attempt by self harm and attempt ed overdose 10/02
--- OUTSIDE RECORDS SUMMARY | 2025-03-04 17:30 | XMS_ITS | Clinical Summary ---
Author Organization [facility] Address [address], [facility] 1 [place] [address] Phone Care Team Providers Care Internet Sales Director Name Role Phone Ric Malik MD Unavailable Ric Malik MD Unavailable [phone] Natacha Hoyt MD Primary Care Provider Allergies Active Allergy Reactions Criticality Noted Date Comments Sumatriptan Other (see Comments) 03/15/2023 [place] Oil Hives,Nausea,Vomitin g,Other (see Comments) Low 04/11/2017 [...] MG Tablet Take 2.5 mg by mouth. 9 Active Dexlansoprazole 60 MG CAPSULE DELAYED RELEASE Take by mouth. Active DULoxetine (CYMBALTA) [address] Particles Take 30 mg by mouth daily. Active Cholecalciferol (VITAMIN D3 PO) Take 2,000 Units by mouth. Active hydrOXYzine (ATARAX) 25 MG Tablet TAKE 1 TABLET BY MOUTH THREE TIMES DAILY NEEDED 2 Active HumuLIN R U-500 KwikPen 500 UNIT/ML Solution Pen-injector 70 Units in the morning and at bedtime. 2 Active ondansetron (ZOFRAN-ODT) 4 MG TABLET DISPERSIBLE Take 4 mg by mouth. 2 Active sucralfate (CARAFATE) 1 GM Tablet Take 1 g by mouth. 2 Active propranolol (INDERAL) 10 MG Tablet 2 Active busPIRone (BUSPAR) 15 MG Tablet Take 15 mg by mouth 2 times daily. 2 Active albuterol 108 (90 Base) MCG/ACT Aerosol Solution INHALE 1 PUFF BY MOUTH EVERY 4 HOURS NEEDED FOR SHORTNESS OF BREATH FOR WHEEZING 3 Active hyoscyamine (ANASPAZ, LEVSIN) 0.125 MG Tablet TAKE 1 TABLET BY MOUTH 4 TIMES DAILY 3 Active propranolol (INDERAL) 10 MG Tablet Take 20 mg by mouth. 4 Active Vraylar 6 MG Capsule 4 Active Rizatriptan Benzoate 5 MG Tablet TAKE 1 TABLET AT ONSET OF HEADACHE, IF NO RELIEF MAY REPEAT 1 TABLET AFTER AT LEAST 2 HOURS. MAX OF 3 PER 24 HOUR 4 Active prazosin (MINIPRESS) 2 MG Capsule TAKE 1 CAPSULE BY MOUTH AT BEDTIME 4 Active Continuous Glucose Transmitter (Dexcom G6 Transmitter) Misc 4 Active folic acid (FOLVITE) 1 MG Tablet Take 1 Tablet by mouth daily. 30 Tablet 3 4 Active aspirin-acetami nophen-caffeine (EXCEDRIN) 250-250-65 MG Tablet Take 1 Tablet by mouth. 7 Active betamethasone valerate (VALISONE) 0.1 % Cream 2 Active bisacodyl 10 MG Suppository 10 mg by Rectal route. 4 Active carvedilol (COREG) 6.25 MG Tablet Take 6.25 mg by mouth. 5 Active doxepin (SINEQUAN) 10 MG Capsule Take 10 mg by mouth. 4 Active Continuous Glucose Sensor (Dexcom G7 Sensor) [facility] APPLY 1 SENSOR TOPICALLY, CHANGE AND REPLACE EVERY 10 DAYS. USE TO MONITOR GLUCOSE. 4 Active Jardiance 25 MG Tablet Take 25 mg by mouth daily. Active clotrimazole (LOTRIMIN) 1 % Cream Apply 1 Applicatorful. Active insulin glargine (LANTUS, BASAGLAR) 100 UNIT/ML Solution Pen-injector 30 Units by Subcutaneous route. 4 Active insulin NPH (HumuLIN N) 100 UNIT/ML Suspension Pen-injector 30 Units by Subcutaneous route. 4 Active nystatin (MYCOSTATIN) 822563 UNIT/GM Cream Apply. 5 Active pantoprazole (PROTONIX) 40 MG Tablet Delayed Response Take 1 Tablet by mouth daily. 4 Active polyethylene glycol (GLYCOLAX, MIRALAX) 17 g Pack Take 17 g by mouth. 4 Active Tirzepatide 10 MG/0.5ML Solution Auto-injector 10 mg by Subcutaneous route once a week. 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) 01/21/2025 1:00 PM CDT Office Visit [facility] [address] [phone] Anne Rodriguez, PROFESSOR OF APOLOGETICS, MOTOR TUNE UP SPECIALIST Iron deficiency (Primary Dx); B12 deficiency; Thrombocytopenia (HCC); 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) 01/21/2025 Travel from Last 3 Months Family History [...] Sign Reading Time Taken Comments Blood Pressure 118/80 01/21/2025 12:55 PM CDT Pulse 61 01/21/2025 12:55 PM CDT Temperature 36.3 C (97.3 F) 01/21/2025 12:55 PM CDT Respiratory Rate 16 01/21/2025 12:55 PM CDT Oxygen Saturation 99% 01/21/2025 12:55 PM CDT Inhaled Oxygen Concentration - - Weight 85 kg (187 lb 4.8 oz) 01/21/2025 12:55 PM CDT Height 157.5 cm (5' 2 ) 01/21/2025 12:55 PM CDT Body Mass Index 34.26 01/21/2025 12:55 PM CDT Plan of Treatment Upcoming Encounters Date Type Department Care Team (Late st Contact Info) Description 04/15/2025 1:00 PM CDT Office Visit [facility] [place] [address] [place] [address] Ric Malik MD [address] [place] [address] Health Maintenance Due Date Last Done Comments Mammogram 1978 TdaP Immunization 1978 Pneumococcal Immunization Combined (1 of 2 - PCV) 1997 Pap Smear 1999 Cervical Cancer Screening (CCS) 2008 HPV/Cotest 2008 Discussion re Starting/Frequency of Mammograms 2018 SARS-COV-2 Immunization ( season) 2024 Influenza Immunization (Seas on Ended) 2025 07/15/2020, 09/14/2019 Colonoscopy 08/27/2032 08/27/2022 Colorectal Cancer Screening 08/27/2032 Respiratory Syncytial Virus (RSV) Immunization (Adult) (1 - 1-dose 75+ series) 2053 08/27/2022 Hepatitis C Virus (HCV) Screening Completed 11/14/2017 Hepatitis B Immunization Completed 019, 01/01/2019, 12/04/2018 Human Papillomavirus (HPV) Immunization Aged Out No longer eligible b ased on patient's age to complete this topic Meningococcal Immunization (ACWY) Aged Out No longer eligible b ased on patient's age to complete this topic Rotavirus Immunization Aged Out No lo nger eligible based on patient's age to complete this topic Procedures Procedure Name Priority Date/Time Associated Diagnosis Comments CBC WITH AUTO DIFF OH Routine 01/21/2025 1:27 PM CDT CMP (COMPREHENSIVE METABOLIC PANEL) Routine 01/21/2025 1:27 PM CDT Iron deficiency B12 deficiency Thrombocytopenia (HCC) 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) VITAMIN B12 Routine 01/21/2025 1:27 PM CDT Iron deficiency B12 deficiency Thrombocytopenia (HCC) 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) IRON W/ IRON BINDING CAPACITY OH Routine 01/21/2025 1:27 PM CDT Iron deficiency B12 deficiency Thrombocytopenia (HCC) 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) FERRITIN Routine 01/21/2025 1:27 PM CDT Iron deficiency B12 deficiency Thrombocytopenia (HCC) 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) FOLIC ACID (FOLATE) Routine 01/21/2025 1 :27 PM CDT Iron deficiency B12 deficiency Thrombocytopenia (HCC) 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) from Last 3 Months Results * IRON W/ IRON BINDING CAPACITY OH (01/21/2025 1:27 PM CDT) IRON 94 50 - 212 ug/dL CANCER SUPERVISOR CIGAR MAKING MACHINE [facility] UIBC 295 155 - 355 ug/dL CANCER SUPERVISOR CIGAR MAKING MACHINE [facility] TIBC 389 261 - 478 ug/dl CANCER SUPERVISOR CIGAR MAKING MACHINE [facility] % Saturation 24 20 - 50 % CANCER SUPERVISOR CIGAR MAKING MACHINE [facility] 01/21/2025 1:27 PM CDT Narrative CANCER SUPERVISOR CIGAR MAKING MACHINE [facility] - 01/21/2025 2:25 PM CDT Release to patient->Immediate Anne Rodriguez APRN, MOTOR TUNE UP SPECIALIST LAB SEND OUTS Final Result CANCER SUPERVISOR CIGAR MAKING MACHINE [facility] [address] [place] [address], * (ABNORMAL) CBC WITH AUTO DIFF [place] (01/21/2025 1:27 PM CDT) WBC 3.7(L) 4.0 - 10.0 10*3/uL CANCER SUPERVISOR CIGAR MAKING MACHINE [facility] HGB 11.8 11.2 - 15.7 g/dL CANCER SUPERVISOR CIGAR MAKING MACHINE [facility] HCT 36.2 34.1 - 44.9 % CANCER SUPERVISOR CIGAR MAKING MACHINE [facility] PLT 57(L) 163 - 369 10*3/uL CANCER SUPERVISOR CIGAR MAKING MACHINE [facility] MPV 10.0 9.4 - 12.4 fL CANCER SUPERVISOR CIGAR MAKING MACHINE [facility] RBC 4.47 3.93 - 5.22 10*6/uL CANCER SUPERVISOR CIGAR MAKING MACHINE [facility] MCV 81 79 - 95 fL CANCER SUPERVISOR CIGAR MAKING MACHINE [facility] MCH 26.4 25.6 - 32.2 pg CANCER SUPERVISOR CIGAR MAKING MACHINE [facility] MCHC 32.6 32.2 - 36.5 g/dL CANCER SUPERVISOR CIGAR MAKING MACHINE [facility] RDW 15.1(H) 11.6 - 14.4 % CANCER SUPERVISOR CIGAR MAKING MACHINE [facility] Neutrophils % 70.7(H) 36.0 - 66.0 % CANCER SUPERVISOR CIGAR MAKING MACHINE [facility] Lymphocytes % 22.0 19.0 - 40.0 % CANCER SUPERVISOR CIGAR MAKING MACHINE [facility] Monocytes % 4.6 4.1 - 12.1 % CANCER SUPERVISOR CIGAR MAKING MACHINE [facility] Eosinophils % 1.9 0.0 - 3.5 % CANCER SUPERVISOR CIGAR MAKING MACHINE [facility] Basophils % 0.5 0.0 - 1.0 % CANCER SUPERVISOR CIGAR MAKING MACHINE [facility] Absolute Neutrophils 2.6 1.4 - 6.6 10*3/uL CANCER SUPERVISOR CIGAR MAKING MACHINE [facility] Absolute Lymphocytes 0.8 0.8 - 4.0 10*3/uL CANCER SUPERVISOR CIGAR MAKING MACHINE [facility] Absolute Monocytes 0.2 0.2 - 1.2 10*3/uL CANCER SUPERVISOR CIGAR MAKING MACHINE [facility] Absolute Eosinophils 0.1 0.0 - 0.4 10*3/uL CANCER SUPERVISOR CIGAR MAKING MACHINE [facility] Absolute Basophils 0.0 0.0 - 0.1 10*3/uL CANCER SUPERVISOR CIGAR MAKING MACHINE [facility] 01/21/2025 1:27 PM CDT Anne Rodriguez APRN, [place] LAB SEND OUTS Final Result CANCER SUPERVISOR CIGAR MAKING [facility] [address] [place] [address], [place] [phone] * VITAMIN B12 (01/21/2025 1:27 PM CDT) Vitamin B12 342 180 - 914 pg/mL [facility] Blood 01/21/2025 1:27 PM CDT Narrative CANCER SUPERVISOR CIGAR MAKING [facility] - 01/22/2025 2:36 PM CDT Release to patient->Immediate Anne Rodriguez APRN, MOTOR TUNE UP SPECIALIST CHEMISTRY ORDERABLES Final Result CANCER SUPERVISOR CIGAR MAKING [facility] Cancer Care [address] [place] [address], [place] [phone] * FOLIC ACID (FOLATE) (01/21/2025 1:27 PM CDT) Folate 14.72 >=5.90 ng/mL CANCER SUPERVISOR CIGAR MAKING [facility] Blood 01/21/2025 1:27 PM CDT Narrative [facility] SUPERVISOR CIGAR MAKING [facility] - 01/22/2025 2:36 PM CDT Release to patient->Immediate IS THE PATIENT REQUIRED TO BE FASTING FOR 12 HOURS?->No Anne Rodriguez PROFESSOR OF APOLOGETICS, MOTOR TUNE UP SPECIALIST CHEMISTRY ORDERABLES Final Result Performing Organization Address City/[facility]/ZIP Co de Phone Number CANCER SUPERVISOR CIGAR MAKING MACHINE [facility] [address] [place] [address], [place] [phone] * FERRITIN (01/21/2025 1:27 PM CDT) Ferritin 24 11 - 307 ng/mL [facility] Blood 01/21/2025 1:27 PM CDT Narrative [facility] SUPERVISOR CIGAR MAKING [facility] - 01/22/2025 2:36 PM CDT Release to patient->Immediate Anne Rodriguez APRN, MOTOR TUNE UP SPECIALIST CHEMISTRY ORDERABLES Final Result Performing Organization Address City/[facility]/ZIP Co de Phone Number [facility] SUPERVISOR CIGAR MAKING [facility] [place] [address], [place] [phone] * (ABNORMAL) CMP (COMPREHENSIVE METABOLIC PANEL) (01/21/2025 1:27 PM CDT) Glucose 183(H) 70 - 105 mg/dL [facility] SUPERVISOR CIGAR MAKING [facility] Blood Urea Nitrogen 12 7 - 25 mg/dL [facility] Creatinine 0.8 0.6 - 1.2 mg/dL [facility] Sodium 142 136 - 145 mEq/L [facility] Potassium 3.3(L) 3.5 - 5.1 mEq/L [facility] Chloride 108(H) 98 - 107 mEq/L [facility] Bicarbonate 23 21 - 31 mEq/L [facility] Total Bilirubin 0.8 0.3 - 1.0 mg/dL [facility] Alk. Phosphatase 80 34 - 104 U/L [facility] Aspartate Aminotransferase 36 13 - 39 U/L CANCER SUPERVISOR CIGAR MAKING MACHINE [facility] Alanine Aminotransferase 34 7 - 52 U/L [facility] SUPERVISOR CIGAR MAKING [facility] Total Protein 6.4 6.4 - 8.9 g/dL [facility] SUPERVISOR CIGAR MAKING [facility] Albumin 4.1 3.5 - 5.7 g/dL CANCER SUPERVISOR CIGAR MAKING [facility] Calcium 9.3 8.6 - 10.3 mg/dL CANCER SUPERVISOR CIGAR MAKING [facility] Anion Gap 14.3 7.0 - 15.0 mEq/L [facility] SUPERVISOR CIGAR MAKING [facility] Globulin 2.3 2.0 - 3.5 g/dL CANCER SUPERVISOR CIGAR MAKING [facility] EGFR 92 >60 ml/min/1. 73m2 CANCER SUPERVISOR CIGAR MAKING MACHINE [facility] Comment: This eGFR is calculated using 2020 CKD-EPI Creatinine equation without race modifier based on the NKF-ASN task force recommendations Equation: mOYJ=661*min(SCr/k,1)a*max(SCr/k,1)-1.200*0.9938Age*1.012 (if female), where SCr is serum creatinine, k is 0.7 for females and 0.9 for males, and a is -0.241 for females and -0.302 for males Blood 01/21/2025 1:27 PM CDT Narrative CANCER SUPERVISOR CIGAR MAKING [facility] - 01/21/2025 2:25 PM CDT Release to patient->Immediate IS THE PATIENT REQUIRED TO BE FASTING FOR 8 HOURS?->No Anne Rodriguez PROFESSOR OF APOLOGETICS, MOTOR TUNE UP SPECIALIST CHEMISTRY ORDERABLES Final Result CANCER SUPERVISOR CIGAR MAKING MACHINE [facility] [place] [address], from Last 3 Months Insurance MEDICAID [facility] MEDICAID [facility] [employer] Care Teams Internet Sales Director Relationship Specialty Start Date End Date Natacha Hoyt MD [address] [place] [address] PCP - General Family Medicine 08/29/23 Ric Malik MD [address] [place] [phone] Consulting Physician Oncology 05/22/22 Ric Malik MD [address] [place] [address] Consulting Physician Oncology 08/28/23
--- OUTSIDE RECORDS SUMMARY | 2025-03-04 17:30 | XMS_ITS ---
Author Organization [facility] Address [address], [facility] 1 [place] [address] Phone Care Team Providers Care Business Analysis Professional Name Role Phone Ric Malik MD Unavailable [phone] Ric Malik MD Unavailable [phone] Natacha Hoyt MD Primary Care Provider [facility] Status:Enrolled (Active) Start date:11/11/2024 Enrollment date:11/11/2024 Related social drivers of health:Intimate Partner Violence, Social Connections, Alcohol Use, Tobacco Use, Financial Resource Strain,Stress, Physical Activity, Food Insecurity, Transportation Needs, Housing Stability, Utilities Continued Care and Services Coordination
--- OUTSIDE RECORDS SUMMARY | 2025-03-04 17:30 | XMS_ITS | Encounter Summary ---
Author Organization [facility] Address [address] [facility] [place] [address] Care Team Providers Care Cardiopulmonary Technician And Eeg Tech Name Role Phone Sadia Morris Primary Care Provider [phone] Sadia Morris Primary Care Provider [phone] Sadia Morris Unavailable Reason for Visit * Reason Onset Date Comments MEDICATION REFILL 01/21/2024 Encounter Details Date Type Department Care Team (Late st Contact Info) Description 01/21/2024 Refill [facility] [address] [place] [address], [facility] [place] [phone] Salomon Sapp MD [address] [place] [address] [place] [address] MEDICATION REFILL Social History Tobacco Use Types [...] more drinks on one occasion? Never 08/27/2022 Comments No Sex and Gender Information Value Date Recorded Sex Assigned at Female 04/21/2024 2:38 PM CDT Legal Sex Female 5:23 PM MEDICAL ANTHROPOLOGY DIRECTOR Gender Identity Female 04/21/2024 2:38 PM CDT Sexual Orientation Straight 04/21/2024 2: 38 PM CDT documented as of this encounter Functional Status * Is person deaf or have serious hearing difficulty? Answer Date of Assessment Author No 08/27/2022 1:21 PM Monika Melvin RN * Is person blind or have serious difficulty seeing? Answer Date of Assessment Author No 08/27/2022 1:21 PM Monika Melvin RN * Does person have serious difficulty walking/climbing stairs? Answer Date of Assessment Author No 08/27/2022 1:21 PM Monika Melvin RN * Does person have difficulty dressing/bathing? Answer Date of Assessment Author No 08/27/2022 1:21 PM Monika Melvin RN * Does person have difficulty doing errands alone? Answer Date of Assessment Author No 08/27/2022 1:21 PM Monika Melvin RN documented as of this encounter Mental Status * Does person have difficulty concentrating/remembering/making decisions? Answer Entry Date Author No 08/27/2022 1:21 PM Monika Melvin RN documented in this encounter Plan of Treatment Upcoming Encounters Date Type Department Care Team (Latest Contact Info) Description 03/19/2025 11:30 AM CDT Appointment [facility] MRI [address] [place] [address] Salomon Sapp MD [address] [place] [address] [address] [place] [address] 05/03/2025 10:30 AM CDT Hospital Encounter [facility] ENDOSCOPY [address] [place] [address] Salomon Sapp MD [address] [place] [address] [address] [place] [address] Surgery General 05/03/2025 10:30 AM CDT - 05/03/2025 11:00 AM CDT Surgery [facility] ENDOSCOPY [address] [place] [address] Salomon Sapp MD [address] [place] [address] [address] [place] [address] EGD +/- banding w/ Raeganler 05/07/2025 12:30 PM CDT Office Visit [facility] - GI [address] [place] [phone] Salomon Sapp MD [address] [place] [address] [address] [place] [address] 09/24/2025 9:30 AM MEDICAL ANTHROPOLOGY DIRECTOR Appointment [facility] [address] [place] [address] Salomon Sapp MD [address] [place] [address] [address] [place] [address] 09/24/2025 10:30 AM MEDICAL ANTHROPOLOGY DIRECTOR Office Visit [facility] - GI [address] [place] [phone] Salomon Sapp MD [address] [place] [address] [address] [place] [address] Scheduled Procedures Name Priority Associated Diagnoses Date/Ti wa ESOPHAGOGASTRODUODENOSCOPY ( EGD) DIAGNOSTIC Esophageal varices without bleeding, unspecified esophageal varices type (HCC) 05/03/2025 10:30 AM CDT documented as of this encounter Goals Goal Patient Goal Type Associated Problems Recent Progress Patient-Stated? Author Medication Management General On track( 025 9:52 AM MEDICAL ANTHROPOLOGY DIRECTOR) Mary Kay Andrade, RN Note: Expected end date: ongoing Interventions: Take all medications as prescribed Let your doctor know right away about any changes in your medications Make sure to request a refill of your medication at least one week prior to your last dose documented as of this encounter Visit Diagnoses Not on filedocumented in this encounter Care Teams Cardiopulmonary Technician And Eeg Tech Relationship Specialty Start Date End Date Alexandra Sadia Granados [address] [place] [address] [address] [place] [address] PCP - General 09/24/23 09/12/24 Sadia Morris [address] [place] [address] [address] [place] [address] PCP - General 09/13/24 Sadia Morris [address] [place] [address] [address] [place] [address] 09/13/24 documented as of this encounter
--- OUTSIDE RECORDS SUMMARY | 2025-03-04 17:30 | XMS_ITS | Clinical Summary ---
Author Organization [facility] Address [address] [place] [address] Care Team Providers Care Quartz Orientator Name Role Phone Sadia Morris NP Primary Care Provider + Allergies Active Allergy Reactions Criticality Noted Date Comments Sumatriptan Muscle pain,Other (See comments) Medium [place] Oil Hives Medium 02/13/2022 Medications cyclobenzaprine (FLEXERIL) [...] on file Legal Sex Female 11:[address] [place] Gender Identity Not on file Sexual Orientation Not on file Obstetrics History Last Filed Vital Signs Vital Sign Reading Time Taken Comments Blood Pressure 122/71 09/13/2024 3:[address] [place] Pulse 64 09/13/2024 3:[address] [place] Temperature 36.2 C (97.2 F) 09/13/2024 3:[address] [place] Respiratory Rate 16 09/13/2024 3:[address] [place] Oxygen Saturation 97% 09/13/2024 3:[address] [place] Inhaled Oxygen Concentration - - Weight 90.3 kg (199 lb) 09/12/2024 2:[address] [place] Height 157.5 cm (5' 2 ) 09/12/2024 2:[address] [place] Body Mass Index 36.4 09/12/2024 2:[address] [place] Plan of Treatment Health Maintenance Due Date Last Done Comments Albumin Creatinine Ratio, Urine 1978 Breast Cancer Screening-Mammogram 1978 Colon Cancer Screening-Colonoscopy 1978 Depression Screening 1978 Hepatitis C Screening 1978 Dilated Eye Exam 1978 Foot Exam 1978 DTaP/Tdap/Td Vaccine (1 - Tdap) 1989 Regular Well Visit/Exam 18-64 1996 Pneumococcal vaccine <65 (1 of 2 - PCV) 1997 Lipid Panel 07/15/2021 07/15/2020 Hemoglobin A1C 03/12/2025 09/12/2024 Influenza Vaccine (Season Ended) 2025 07/15/2020, 09/14/2019, 11/16/2015, Additional history exists eGFR 09/11/2025 09/11/2024, 08/0 10/2023, 08/09/2023, Additional history exists HPV Vaccines Aged Out No longer eligi ble based on patient's age to complete this topic Procedures Procedure Name Priority Date/Time Associated Diagnosis Comments HEMOGLOBIN A1C Routine 09/12/2024 4:[address] [place] EGFR STAT 09/11/2024 11:[address] [place] from Last 3 Months or Most Recently Relevant to Health Maintenance Results * Hemoglobin A1c (09/12/2024 4:[address] [place]) Hgb A1C 5.4 4.0 - 5.6 % Estimated Average Glucose 108 mg/dL [facility] ([place]) Comment: The ADA recommends reporting an estimated Average Glucose (eAG) with all Hemoglobin A1c results using the equation derived from a study of 507 normal and diabetic adults. Minority populations were underrepresented and children were not included. (Diabetes Care 31:0316-3747, 2008). The eAG is not equivalent to a fasting glucose. Blood 09/12/2024 4:[address] [place] 09/12/2024 5:[address] [place] us Dionicio Levin MD LAB BLOOD ORDERABLES Final Resu lt [facility] ([place]) 1 [facility] Department [place] [address] * eGFR (09/11/2024 11:[address] [place]) eGFR 69 >=60 mL/min/1. 73 m2 Comment: [...] reviewed 2021. Blood 09/11/2024 11:[address] [place] 09/11/2024 11:[address] [place] Valdez Lee MD LAB BLOOD ORDERABLES Final R esult [facility] ([place]) 1 [facility] Department [place] [address] from Last 3 Months or Most Recently Relevant to Health Maintenance Insurance [facility] Advance Directives For more information, please contact: [phone] * LIMITED - No CPR (Latest Code [...] 1:26 AM 09/12/2024 5:23 AM Care Teams Quartz Orientator Relationship Specialty Start Date End Date Sadia Morris NP [address] [facility] [address] [place] [place] [id number] PCP - General Nurse Practitioner 02/28/24
[2025-03-04 17:31] VITALS: BP 106/71; PULSE 85; RESP 16; TEMP 36.3; O2SAT 99
--- NOTE | 2025-03-04 18:22 | ED.FEMALEGU ---
HPI - Female Genitourinary General Chief complaint: Urogenital-Female <Neeru Hartley PA-C - Last Filed: 03/04/25 18:45> Stated complaint: hematuria <Neeru Hartley PA-C - Last Filed: 03/04/25 18:45> Time Seen by Provider: 03/04/25 18:22 <SOLE Qureshi Last Filed: 03/04/25 18:45> Focused HPI: Patient is a 44-year-old female who presents the ED with report of hematuria and right-sided abdominal pain. Patient reports she developed hematuria around 3:00 a.m.. Denies dysuria. She had does also report having pain throughout her right-sided lower abdomen, R flank region that began today. reports history of kidney stones in the past that have required surgery, but is unsure if this feels similar. Has not taken anything for pain. Reports nausea, dizziness for the past couple days-described as lightheaded and room spinning. Denies fevers, vomiting, diarrhea, constipation. GENERAL: Well-appearing, obese with BMI of 30.3, and in no acute distress. HEAD: Normocephalic, atraumatic. CHEST: Clear to auscultation. ?No respiratory distress. HEART: Regular rate and rhythm.? ABD: Mild TTP in R mid to lower abdomen. +CVA on R NEURO: ?Alert and oriented x3. Patient screened in triage and initial orders placed.? ?Additional care and disposition to be based upon?diagnostic testing and treatment. <Neeru Hartley PA-C - Last Filed: 03/04/25 18:45> Source: patient <Neeru Hartley PA-C - Last Filed: 03/04/25 18:45> Mode of arrival: ambulatory <SOLE Qureshi Last Filed: 03/04/25 18:45> Limitations: no limitations <SOLE Qureshi Last Filed: 03/04/25 18:45> History of Present Illness HPI Narrative: Agree with HPI <Scooter Murphy MD - Last Filed: 03/04/25 21:23> Related Data Home medications: Home Medications ?Medication ?Instructions ?Recorded ?Confirmed ?Last Taken ?Type diphenhydramine HCl 25 mg capsule 25 mg PO TID PRN itching 06/01/22 11/26/24 Unknown History (Benadryl) buspirone 15 mg tablet 15 mg PO BID 10/25/22 12/07/24 12/07/24 History hydroxyzine pamoate 25 mg capsule 50 mg PO Q4H PRN Anxiety 07/25/23 11/26/24 Unknown History (Vistaril) prazosin 2 mg capsule 2 mg PO QHS 01/27/24 12/07/24 12/06/24 History cholecalciferol (vitamin D3) 50 50 mcg PO DAILY 07/24/24 12/07/24 12/07/24 History mcg (2,000 unit) capsule (Vitamin D3) ferrous sulfate 325 mg (65 mg 325 mg PO DAILY 07/24/24 12/07/24 11/23/24 History iron) tablet lidocaine 3 %-hydrocortisone 0.5 % 1 applic RECTAL BID PRN Pain 07/24/24 11/26/24 08/03/24 History rectal cream vitamin B complex 1 tablet PO DAILY 07/24/24 12/07/24 12/07/24 History doxepin 10 mg capsule 10 mg PO QHS 08/13/24 12/07/24 12/06/24 History cariprazine 6 mg capsule (Vraylar) 6 mg PO DAILY 09/21/24 12/07/24 12/07/24 History <Neeru Hartley PA-C - Last Filed: 03/04/25 18:45> Allergies/Adverse reactions: Allergies Allergy/AdvReac Type Severity Reaction Status Date / Time sunflower oil Allergy Intermediate Hives Verified 03/04/25 17:38 sumatriptan (From Imitrex) AdvReac Intermediate Muscle Verified 03/04/25 17:38 Spasms <Neeru Hartley PA-C - Last Filed: 03/04/25 18:45> Review of Systems Review of Systems: All systems reviewed & are unremarkable except as noted in HPI and below <Scooter Murphy MD - Last Filed: 03/04/25 21:23> Constitutional: Constitutional: Reports no additional constitutional complaints <Scooter Murphy MD - Last Filed: 03/04/25 21:23> Cardiovascular: Cardiovascular: Reports no additional cardiovascular complaints <Scooter Murphy MD - Last Filed: 03/04/25 21:23> Respiratory: Respiratory: Reports no additional respiratory complaints <Scooter Murphy MD - Last Filed: 03/04/25 21:23> Gastrointestinal: Gastrointestinal: Reports no additional gastrointestinal complaints <Scooter Murphy MD - Last Filed: 03/04/25 21:23> Genitourinary: Genitourinary: Reports no additional female genitourinary complaints <Scooter Murphy MD - Last Filed: 03/04/25 21:23> [facility] Past Medical History Medical History: Medical History Type 2 diabetes mellitus (~2006) Rectal bleeding Left knee pain Medial meniscus tear Chronic nausea Gastroesophageal reflux disease Esophageal varices determined by endoscopy Irritable bowel syndrome with alternating bowel habits Portal hypertensive gastropathy Cirrhosis Bipolar 2 disorder Alopecia Cat scratch of forearm Body mass index (BMI) 35 or more (05/05/19) Vaginal yeast infection Type 2 diabetes mellitus with hyperglycemia Benign essential hypertension Abnormal vaginal bleeding Abnormal CT of brain Nausea & vomiting Hx of renal calculi (~07/2021) Portal hypertension (~07/2021) Chronic GERD Ganglion cyst Vitamin D deficiency Dyslipidemia BMI 40.0-44.9, adult Anxiety and depression HTN (hypertension) Type 2 diabetes mellitus with other circulatory complications (~2006) Avulsion fracture of right calcaneus with delayed healing (~2016) Other and unspecified hyperlipidemia (~2018) Hypertension complicating diabetes (~2013) Iron deficiency anemia due to chronic blood loss (~2016) 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: [facility] Microalbuminuria due to type 2 diabetes mellitus (~2017) Migraine without aura, not intractable, with status migrainosus (~1992) meds tried: midrin (helpful), imitrex (no help), zomig, topamax (helpful) Recurrent major depressive disorder in partial remission (~1992) Renal cyst, acquired (~2011) Hyperlipidemia associated with type 2 diabetes mellitus (~2018) Unspecified cirrhosis of liver (~2014) LOVE <Neeru Hartley PA-C - Last Filed: 03/04/25 18:45> Surgical History Surgical History: Surgical History History of urethral stent (~07/2021) H/O: hysterectomy H/O left knee surgery Status post right foot surgery (~2017) History of cholecystectomy (~2017) <SOLE Qureshi Last Filed: 03/04/25 18:45> Family History Family History: Family History Father Hypertension Cerebrovascular accident Family history of diabetes mellitus in first degree relative Diabetes mellitus Mother Hypertension Other Family history of Alzheimer's disease Family history of cardiovascular disease Family history of chronic obstructive pulmonary disease Family history of congestive heart failure Family history of hearing loss Family history of migraine headaches Family history of obesity <SOLE Qureshi Last Filed: 03/04/25 18:45> Social History Social History: Social History Social History: , no children. Unemployed. Caffeine-rarely Smoking packs per day: 1 Smoking cigarettes per day: 20.0 Years smoked: 13 Smoking pack-years: 13.00 Smoking status: Former smoker Tobacco type: e-cigarettes/vaping Smoking end date: 10/14/06 Alcohol intake: never Substance use: never Substance use type: does not use Last use: Quit 1997 Do You Feel Safe in your Home?: Yes Lack of Transportation: No Lack of Food: Never True Current Housing: I Have Housing Concerned About Future Housing: No Difficulty Paying Gas/Electric Bills: No Difficulty Paying for Meds: No Currently Unemployed: Decline to Answer Education: Associate Degree Living arrangements: with family Additional living arrangements comments: lives with soon to be x- Occupation/Education: occupation Gender identity (if verbalized by the patient): Female Spiritual care concerns: No Agree to blood products: Yes <SOLE Qureshi Last Filed: 03/04/25 18:45> Exam Narrative: GENERAL: Well-appearing, well-nourished, and in no acute distress. HEAD: Normocephalic, atraumatic. ENT: Mucous membranes moist. NECK: Supple. CHEST: Clear to auscultation. No respiratory distress. HEART: Regular rate and rhythm. Normal peripheral pulses. ABDOMEN: Soft, mild right-sided discomfort without guarding, nondistended, no CVA tenderness. EXTREMITIES: Normal range of motion. No edema. SKIN: Warm, dry, no rash. NEURO: Alert and oriented x3. PSYCH: Normal mood and affect. <Scooter Murphy MD - Last Filed: 03/04/25 21:23> Course Course Emergency Course: Discussed with urology. Recommended admission for pain control and ureteral stenting. On coronal views the urinary stone is quite long. Patient verbalized understanding and agreement to plan. Hospitalist notified and accepted patient. <Scooter Murphy MD - Last Filed: 03/04/25 21:23> Vital Signs Vital signs: Vital Signs Temperature 97.4 F L 03/04/25 17:31 Pulse Rate 85 03/04/25 17:31 Respiratory Rate 16 03/04/25 17:31 Blood Pressure 106/71 03/04/25 17:31 Pulse Oximetry 99 03/04/25 17:31 Oxygen Delivery Room Air 03/04/25 17:31 Temperature 97.6 F 03/04/25 20:06 Pulse Rate 85 03/04/25 20:06 Respiratory Rate 14 03/04/25 20:06 Blood Pressure 99/71 L 03/04/25 20:06 Pulse Oximetry 100 03/04/25 20:06 Oxygen Delivery Room Air 03/04/25 17:31 <Neeru Hartley PA-C - Last Filed: 03/04/25 18:45> Vital Signs Temperature 97.4 F L 03/04/25 17:31 Pulse Rate 85 03/04/25 17:31 Respiratory Rate 16 03/04/25 17:31 Blood Pressure 106/71 03/04/25 17:31 Pulse Oximetry 99 03/04/25 17:31 Oxygen Delivery Room Air 03/04/25 17:31 Temperature 97.6 F 03/04/25 20:06 Pulse Rate 85 03/04/25 20:06 Respiratory Rate 14 03/04/25 20:06 Blood Pressure 99/71 L 03/04/25 20:06 Pulse Oximetry 100 03/04/25 20:06 Oxygen Delivery Room Air 03/04/25 17:31 <Scooter Murphy MD - Last Filed: 03/04/25 21:23> MDM - Female Genitourinary MDM Narrative Medical decision making narrative: MSE by ERICKSON in triage. <Neeru Hartley PA-C - Last Filed: 03/04/25 18:45> Lab Data Result diagrams: 03/04/25 20:04 03/04/25 20:04 <Neeru Hartley PA-C - Last Filed: 03/04/25 18:45> Labs: Lab Results 03/04/25 03/04/25 Range/Units 19:50 20:04 WBC 4.7 (4.5-10.0) K/mm3 RBC 5.03 (4.2-5.4) M/mm3 Hgb 13.3 (12.0-15.0) g/dL Hct 41.8 (37.0-47.0) % MCV 83.1 (80-100) fl MCH 26.4 (26-34) pg MCHC 31.8 L (32-36) g/dl RDW 16.5 H (11.5-14.5) % Plt Count 57 L (150-375) k/mm3 MPV 11.7 H (7.4-10.4) fl Immature Gran % (Auto) 0.2 (0-0.5) % Neut % (Auto) 73.0 (45.5-73.1) % Lymph % (Auto) 19.2 (18.3-44.2) % Gregory % (Auto) 5.3 (2.6-8.5) % Eos % (Auto) 1.7 (0-4.4) % Baso % (Auto) 0.6 (0.2-1.2) % Lymph # (Auto) 0.91 (0.9-3.2) K/mm3 Gregory # (Auto) 0.3 (0.1-0.6) K/mm3 Eos # (Auto) 0.1 (0-0.3) K/mm3 Baso # (Auto) 0.0 (0.0-0.1) K/mm3 Abs Immat Gran (auto) 0.01 (0.00-0.031) K/mm3 Absolute Neuts (auto) 3.5 (1.3-6.7) K/mm3 Absolute Nucleated RBC 0.000 (0.0-0.012) K/mm3 Band Neutrophils % Not Reportable Nucleated RBC % 0.0 (0.0-0.2) % Platelet Estimate Decreased (Adequate) % Immature Plt Fraction 8.8 (0.9-11.2) % Ovalocytes 1+ Schistocytes None seen Sodium 140 (137-145) mmol/L Potassium 3.1 L (3.4-5.0) mmol/L Chloride 104 (98-107) mmol/L Carbon Dioxide 19 L (22-30) mmol/L Anion Gap 17 H (4-12) mmol/L BUN 21 H (7-17) mg/dL Creatinine 1.19 H (0.7-1.0) mg/dL Estim Creat Clear Calc 50 ml/min Estimated GFR 49 L (59 - ) Glucose 114 H (65-110) mg/dL Calcium 9.3 (8.4-10.2) mg/dL Total Bilirubin 1.2 (0.2-1.3) mg/dL AST 47 H (14-36) U/L ALT 34 (6-35) U/L Alkaline Phosphatase 87 (38-126) U/L Total Protein 8.0 (6.3-8.2) g/dL Albumin 4.6 (3.5-5.1) g/dL Urine Color Dark yellow (Yellow) Urine Appearance Turbid H (Clear) Urine pH 5.5 (5.0-9.0) Ur Specific [place] 1.033 (1.001-1.035) Urine Protein 2+ H (Negative) mg/dL Urine Glucose (UA) 3+ H (Negative) mg/dL Urine Ketones 2+ H (Negative) mg/dL Ur Blood (Man) 3+ H (Negative) Urine Nitrate Negative (Negative) Urine Bilirubin 2+ H (Negative) Urine Urobilinogen 1.0 (<2.0) mg/dL Add Ur Microanalysis Reviewed Leukocyte Esterase Rfl 1+ H (Negative) KATIE/UL Urine RBC >100 H (0-2) /hpf Urine WBC 11-20 H (0-3) /hpf Ur Squamous Epith Cells Moderate (Few) /hpf Urine Bacteria 1+ H /hpf Urine Casts 3-5 <Neeru Hartley PA-C - Last Filed: 03/04/25 18:45> Lab Results 03/04/25 03/04/25 Range/Units 19:50 20:04 WBC 4.7 (4.5-10.0) K/mm3 RBC 5.03 (4.2-5.4) M/mm3 Hgb 13.3 (12.0-15.0) g/dL Hct 41.8 (37.0-47.0) % MCV 83.1 (80-100) fl MCH 26.4 (26-34) pg MCHC 31.8 L (32-36) g/dl RDW 16.5 H (11.5-14.5) % Plt Count 57 L (150-375) k/mm3 MPV 11.7 H (7.4-10.4) fl Immature Gran % (Auto) 0.2 (0-0.5) % Neut % (Auto) 73.0 (45.5-73.1) % Lymph % (Auto) 19.2 (18.3-44.2) % Gregory % (Auto) 5.3 (2.6-8.5) % Eos % (Auto) 1.7 (0-4.4) % Baso % (Auto) 0.6 (0.2-1.2) % Lymph # (Auto) 0.91 (0.9-3.2) K/mm3 Gregory # (Auto) 0.3 (0.1-0.6) K/mm3 Eos # (Auto) 0.1 (0-0.3) K/mm3 Baso # (Auto) 0.0 (0.0-0.1) K/mm3 Abs Immat Gran (auto) 0.01 (0.00-0.031) K/mm3 Absolute Neuts (auto) 3.5 (1.3-6.7) K/mm3 Absolute Nucleated RBC 0.000 (0.0-0.012) K/mm3 Band Neutrophils % Not Reportable Nucleated RBC % 0.0 (0.0-0.2) % Platelet Estimate Decreased (Adequate) % Immature Plt Fraction 8.8 (0.9-11.2) % Ovalocytes 1+ Schistocytes None seen Sodium 140 (137-145) mmol/L Potassium 3.1 L (3.4-5.0) mmol/L Chloride 104 (98-107) mmol/L Carbon Dioxide 19 L (22-30) mmol/L Anion Gap 17 H (4-12) mmol/L BUN 21 H (7-17) mg/dL Creatinine 1.19 H (0.7-1.0) mg/dL Estim Creat Clear Calc 50 ml/min Estimated GFR 49 L (59 - ) Glucose 114 H (65-110) mg/dL Calcium 9.3 (8.4-10.2) mg/dL Total Bilirubin 1.2 (0.2-1.3) mg/dL AST 47 H (14-36) U/L ALT 34 (6-35) U/L Alkaline Phosphatase 87 (38-126) U/L Total Protein 8.0 (6.3-8.2) g/dL Albumin 4.6 (3.5-5.1) g/dL Urine Color Dark yellow (Yellow) Urine Appearance Turbid H (Clear) Urine pH 5.5 (5.0-9.0) Ur Specific [place] 1.033 (1.001-1.035) Urine Protein 2+ H (Negative) mg/dL Urine Glucose (UA) 3+ H (Negative) mg/dL Urine Ketones 2+ H (Negative) mg/dL Ur Blood (Man) 3+ H (Negative) Urine Nitrate Negative (Negative) Urine Bilirubin 2+ H (Negative) Urine Urobilinogen 1.0 (<2.0) mg/dL Add Ur Microanalysis Reviewed Leukocyte Esterase Rfl 1+ H (Negative) KATIE/UL Urine RBC >100 H (0-2) /hpf Urine WBC 11-20 H (0-3) /hpf Ur Squamous Epith Cells Moderate (Few) /hpf Urine Bacteria 1+ H /hpf Urine Casts 3-5 <Scooter Murphy MD - Last Filed: 03/04/25 21:23> Imaging Data Radiologist's impression: ITS Impressions Abdomen/Pelvis CT 03/04/25 19:12 IMPRESSION: Mild right-sided hydroureteronephrosis secondary to a 5 mm bilobed calculus within the proximal to mid right ureter. <Scooter Murphy MD - Last Filed: 03/04/25 21:23> Discharge Plan Discharge Clinical Impression: Calculus, ureteral, UTI (urinary tract infection) <Neeru Hartley PA-C - Last Filed: 03/04/25 18:45> Patient Disposition: Still a Patient <Neeru Hartley PA-C - Last Filed: 03/04/25 18:45> Condition: Stable <Neeru Hartley PA-C - Last Filed: 03/04/25 18:45> Patient Language: Moroccan <Neeru Hartley PA-C - Last Filed: 03/04/25 18:45> Prescriptions: No Action fluticasone propionate [Flonase Allergy Relief] 50 mcg/actuation spray,suspension 1 spray intranasal DAILY Qty: 16 0RF Rx Instructions: administer into each nostril (DME) OneTouch Verio test strips Strip See Rx Instructions .Route Qty: 100 11RF Rx Instructions: Monitor glucose 3-4 times a day prazosin 2 mg capsule 2 mg PO QHS doxepin 10 mg capsule 10 mg PO QHS (DME) Dexcom G7 Sensor Device See Rx Instructions .ROUTE .MEDSUPPLY Qty: 9 3RF Rx Instructions: Use to monitor glcuose Vraylar 6 mg capsule 6 mg PO DAILY Baqsimi 3 mg/actuation spray,non-aerosol 3 mg intranasal ONCE PRN (Reason: hypoglycemia) Qty: 1 0RF Rx Instructions: as a single dose buspirone 15 mg tablet 15 mg PO BID Humulin R U-500 (Conc) Kwikpen 500 unit/mL (3 mL) insulin pen See Rx Instructions .ROUTE .COMPLEX Qty: 39 0RF Dose Instruction: INJECT 70 UNITS SUBCUTANEOUSLY THREE TIMES DAILY WITH MEALS Rx Instructions: Sliding scale BID-TID carvedilol 3.125 mg tablet 3.125 mg PO Q12H Qty: 180 1RF Rx Instructions: must administer with a meal/food bisacodyl 10 mg suppository 10 mg RECTAL DAILY PRN (Reason: constipation) Qty: 12 0RF Rx Instructions: Insert 1 suppository in rectum if no BM in 72 hours bisacodyl 5 mg tablet,delayed release (DR/EC) 5 mg PO ONCE Qty: 20 0RF Rx Instructions: Take one tablet if no BM in 24 hours diphenhydramine HCl [Benadryl] 25 mg Capsule 25 mg PO TID PRN (Reason: itching) lidocaine HCl-hydrocortison ac 3-0.5 % cream 1 applic RECTAL BID PRN (Reason: Pain) ferrous sulfate 325 mg (65 mg iron) Tablet 325 mg PO DAILY vitamin B complex [B Complex-Vitamin B12] Tablet 1 tablet PO DAILY cholecalciferol (vitamin D3) [Vitamin D3] 50 mcg (2,000 unit) Capsule 50 mcg PO DAILY duloxetine 30 mg capsule,delayed release(DR/EC) 30 mg PO BID Qty: 180 1RF (DME) pen needle, diabetic [BD Ultra-Fine Shantelle Pen Needle] 32 gauge x 5/32 needle See Rx Instructions .ROUTE .MEDSUPPLY Qty: 300 1RF Rx Instructions: three times daily hydroxyzine pamoate [Vistaril] 25 mg capsule 50 mg PO Q4H PRN (Reason: Anxiety) albuterol sulfate 90 mcg/actuation HFA aerosol inhaler 1 puff INHALATION Q4H PRN (Reason: shortness of breath or wheezing) Qty: 6.7 1RF dexlansoprazole 60 mg capsule,biphase delayed releas 60 mg PO DAILY 30 Days Qty: 30 12RF Mounjaro 10 mg/0.5 mL pen injector 10 mg subcut WEEKLY Qty: 6 1RF cyclobenzaprine 10 mg tablet 10 mg PO TID PRN (Reason: muscle spasm) Qty: 60 1RF rizatriptan 5 mg tablet See Rx Instructions PO .COMPLEX PRN (Reason: Migraine Headache) Qty: 10 5RF Rx Instructions: take 1 tab at onset of headache; if no relief may repeat 1 tab after at least 2 hrs; max = 3 tabs/24 hr PO folic acid 1 mg tablet 1 mg PO DAILY Qty: 90 1RF atorvastatin 80 mg tablet 80 mg PO QHS Qty: 90 1RF Jardiance 25 mg tablet 25 mg PO DAILY Qty: 90 1RF lisinopril 2.5 mg tablet See Rx Instructions .ROUTE .COMPLEX Qty: 90 0RF Dose Instruction: Take 1 tablet by mouth once daily Rx Instructions: Take 1 tablet by mouth once daily pantoprazole 40 mg tablet,delayed release (DR/EC) See Rx Instructions .ROUTE .COMPLEX Qty: 90 1RF Dose Instruction: TAKE 1 TABLET BY MOUTH IN THE MORNING Rx Instructions: TAKE 1 TABLET BY MOUTH IN THE MORNING topiramate 200 mg tablet See Rx Instructions .ROUTE .COMPLEX Qty: 90 1RF Dose Instruction: Take 1 tablet by mouth once daily Rx Instructions: Take 1 tablet by mouth once daily <Neeru Hartley PA-C - Last Filed: 03/04/25 18:45> Follow-up/Referrals: Karin Hoyt MD [Primary Care Provider] - <Neeru Hartley PA-C - Last Filed: 03/04/25 18:45>
[2025-03-04 20:04] LABS: Add Urine Microscopic? YES; Appearance Urine Turbid (Clear); Bacteria Urine 1+ /hpf; Bilirubin Urine 2+ (Negative); Blood Urine 3+ (Negative); Color Urine Dark Yellow (Yellow); Glucose Urine UA 3+ mg/dL (Negative); Ketones Urine 2+ mg/dL (Negative); Leukocyte Esterase Ur 1+ LEU/UL (Negative); Need Manual Microscopic Reviewed; Nitrate Urine Negative (Negative); Protein Urine 2+ mg/dL (Negative); RBC Urine >100 /hpf (0-2); Specific Grav Ur 1.033 (1.001-1.035); Squamous Epithelial Cell Urine Moderate /hpf (Few); pH Urine 5.5 (5.0-9.0)
[2025-03-04 20:06] VITALS: BP 99/71; PULSE 85; RESP 14; TEMP 36.4; O2SAT 100
[2025-03-04 20:16] LABS: Basophils Percent Auto 0.6 % (0.2-1.2); Eosinophils Absolute Auto 0.1 K/mm3 (0-0.3); Eosinophils Percent Auto 1.7 % (0-4.4); Hematocrit 41.8 % (37.0-47.0); Hemoglobin 13.3 g/dL (12.0-15.0); Immature Granulocyte Absolute 0.01 K/mm3 (0.00-0.031); Immature Granulocyte Percent A 0.2 % (0-0.5); Immature Platelet Fraction Pct 8.8 % (0.9-11.2); Lymphocytes Absolute Auto 0.91 K/mm3 (0.9-3.2); Lymphocytes Percent Auto 19.2 % (18.3-44.2); Mean Corpuscular HGB Conc 31.8 g/dl (32-36); Mean Corpuscular Hemoglobin 26.4 pg (26-34); Mean Corpuscular Volume 83.1 fl (80-100); Mean Platelet Volume 11.7 fl (7.4-10.4); Monocytes Absolute Auto 0.3 K/mm3 (0.1-0.6); Monocytes Percent Auto 5.3 % (2.6-8.5); Neutrophils Absolute Auto 3.5 K/mm3 (1.3-6.7); Platelet Count Result 57 k/mm3 (150-375); Red Blood Count 5.03 M/mm3 (4.2-5.4); Red Cell Distribution Width 16.5 % (11.5-14.5); White Blood Count 4.7 K/mm3 (4.5-10.0)
[2025-03-04 20:23] LABS: Alanine Aminotransferase 34 U/L (6-35); Albumin Level 4.6 g/dL (3.5-5.1); Alkaline Phosphatase 87 U/L (38-126); Anion Gap 17 mmol/L (4-12); Aspartate Amino Transferase 47 U/L (14-36); Bilirubin,Total 1.2 mg/dL (0.2-1.3); Blood Urea Nitrogen 21 mg/dL (7-17); Calcium 9.3 mg/dL (8.4-10.2); Carbon Dioxide 19 mmol/L (22-30); Chloride 104 mmol/L (98-107); Estimated CRCL calculation 50 ml/min; Estimated Glomerular Filt Rate 49; Glucose 114 mg/dL (65-110); Potassium 3.1 mmol/L (3.4-5.0); Sodium 140 mmol/L (137-145)
[2025-03-04 20:28] LABS: Platelet Estimate Decreased (Adequate); Schistocytes None Seen
[2025-03-04 20:29] LABS: Ovalocytes 1+
[2025-03-04] MEDS: SODIUM CHLORIDE 0.9% IV 1,000 ML 999 ML IV CONT (20:39)
[2025-03-04] MEDS: MORPHINE SULFATE (*CRX) 4 MG/ML INJ IV PUSH (20:39)
--- OUTSIDE RECORDS SUMMARY | 2025-03-04 20:46 | XMS_ITS | Clinical Summary ---
Author Organization [facility] Address [address], [facility] [address] [place] [address] Phone Care Team Providers Care Traffic Investigator Name Role Phone Ric Malik MD Unavailable [phone] Ric Malik MD Unavailable [phone] Natacha Hoyt MD Primary Care Provider Allergies Active Allergy Reactions Criticality Noted Date Comments Sumatriptan Other (see Comments) 03/15/2023 [place] Oil Hives,Nausea,Vomitin g,Other (see Comments) Low 04/11/2017 [...] Active Continuous Glucose Sensor (Dexcom G7 Sensor) [facility] APPLY 1 SENSOR TOPICALLY, CHANGE AND REPLACE [...] by Subcutaneous route. 4 Active nystatin (MYCOSTATIN) 047764 UNIT/GM Cream Apply. 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) 01/21/2025 1:00 PM CDT Office Visit [facility] [address] [phone] Anne Rodriguez, BODY MECHANIC APPRENTICE, RECONCILIATION ACCOUNTANT Iron deficiency (Primary Dx); B12 deficiency; Thrombocytopenia [...] CDT Office Visit [facility] [place] [address] [place] [address] iRc Malik MD [address] [place] [address] Health Maintenance Due Date Last Done Comments [...] IRON 94 50 - 212 ug/dL [facility] UIBC 295 155 - 355 ug/dL [facility] TIBC 389 261 - 478 ug/dl [facility] % Saturation 24 20 - 50 % [facility] 01/21/2025 1:27 PM CDT Narrative [facility] - 01/21/2025 2:25 PM CDT Release to patient->Immediate Anne Rodriguez APRN, RECONCILIATION ACCOUNTANT LAB SEND OUTS Final Result [facility] [address] [place] [address], * (ABNORMAL) CBC WITH AUTO DIFF [place] (01/21/2025 1:27 PM CDT) WBC 3.7(L) 4.0 - 10.0 10*3/uL [facility] HGB 11.8 11.2 - 15.7 g/dL [facility] HCT 36.2 34.1 - 44.9 % [facility] PLT 57(L) 163 - 369 10*3/uL [facility] MPV 10.0 9.4 - 12.4 fL [facility] RBC 4.47 3.93 - 5.22 10*6/uL [facility] MCV 81 79 - 95 fL [facility] MCH 26.4 25.6 - 32.2 pg [facility] MCHC 32.6 32.2 - 36.5 g/dL [facility] RDW 15.1(H) 11.6 - 14.4 % [facility] Neutrophils % 70.7(H) 36.0 - 66.0 % [facility] Lymphocytes % 22.0 19.0 - 40.0 % [facility] Monocytes % 4.6 4.1 - 12.1 % [facility] Eosinophils % 1.9 0.0 - 3.5 % [facility] Basophils % 0.5 0.0 - 1.0 % [facility] Absolute Neutrophils 2.6 1.4 - 6.6 10*3/uL [facility] Absolute Lymphocytes 0.8 0.8 - 4.0 10*3/uL [facility] Absolute Monocytes 0.2 0.2 - 1.2 10*3/uL [facility] Absolute Eosinophils 0.1 0.0 - 0.4 10*3/uL [facility] Absolute Basophils 0.0 0.0 - 0.1 10*3/uL [facility] 01/21/2025 1:27 PM CDT Anne Rodriguez APRN, [place] LAB SEND OUTS Final Result [facility] [address] [place] [address], [place] [phone] * VITAMIN B12 (01/21/2025 1:27 PM CDT) Vitamin B12 342 180 - 914 pg/mL [facility] Blood 01/21/2025 1:27 PM CDT Narrative [facility] - 01/22/2025 2:36 PM CDT Release to patient->Immediate Anne Rodriguez APRN, RECONCILIATION ACCOUNTANT CHEMISTRY ORDERABLES Final Result [facility] Cancer Care [address] [place] [address], [place] [phone] * FOLIC ACID (FOLATE) (01/21/2025 1:27 PM CDT) Folate 14.72 >=5.90 ng/mL [facility] Blood 01/21/2025 1:27 PM CDT Narrative [facility] - 01/22/2025 2:36 PM CDT Release to patient->Immediate IS THE PATIENT REQUIRED TO BE FASTING FOR 12 HOURS?->No Anne Rodriguez BODY MECHANIC APPRENTICE, RECONCILIATION ACCOUNTANT CHEMISTRY ORDERABLES Final Result Performing Organization Address City/[facility]/ZIP Co de Phone Number [facility] [address] [place] [address], [place] [phone] * FERRITIN (01/21/2025 1:27 PM CDT) Ferritin 24 11 - 307 ng/mL [facility] Blood 01/21/2025 1:27 PM CDT Narrative [facility] - 01/22/2025 2:36 PM CDT Release to patient->Immediate Anne Rodriguez APRN, RECONCILIATION ACCOUNTANT CHEMISTRY ORDERABLES Final Result Performing Organization Address City/[facility]/ZIP Co de Phone Number [facility] [place] [address], [place] [phone] * (ABNORMAL) CMP (COMPREHENSIVE METABOLIC PANEL) (01/21/2025 1:27 PM CDT) Glucose 183(H) 70 - 105 mg/dL [facility] Blood Urea Nitrogen 12 7 - 25 mg/dL [facility] Creatinine 0.8 0.6 - 1.2 mg/dL [facility] Sodium 142 136 - 145 mEq/L [facility] Potassium 3.3(L) 3.5 - 5.1 mEq/L [facility] Chloride 108(H) 98 - 107 mEq/L [facility] Bicarbonate 23 21 - 31 mEq/L [facility] Total Bilirubin 0.8 0.3 - 1.0 mg/dL [facility] Alk. Phosphatase 80 34 - 104 U/L [facility] Aspartate Aminotransferase 36 13 - 39 U/L [facility] Alanine Aminotransferase 34 7 - 52 U/L [facility] Total Protein 6.4 6.4 - 8.9 g/dL [facility] Albumin 4.1 3.5 - 5.7 g/dL [facility] Calcium 9.3 8.6 - 10.3 mg/dL [facility] Anion Gap 14.3 7.0 - 15.0 mEq/L [facility] Globulin 2.3 2.0 - 3.5 g/dL [facility] EGFR 92 >60 ml/min/1. 73m2 [facility] Comment: This eGFR is calculated using 2020 CKD-EPI Creatinine equation without race modifier based on the NKF-ASN task force recommendations Equation: tQTX=406*min(SCr/k,1)a*max(SCr/k,1)-1.200*0.9938Age*1.012 (if female), where SCr is serum creatinine, k is 0.7 for females and 0.9 for males, and a is -0.241 for females and -0.302 for males Blood 01/21/2025 1:27 PM CDT Narrative [facility] - 01/21/2025 2:25 PM CDT Release to patient->Immediate IS THE PATIENT REQUIRED TO BE FASTING FOR 8 HOURS?->No Anne Rodriguez BODY MECHANIC APPRENTICE, RECONCILIATION ACCOUNTANT CHEMISTRY ORDERABLES Final Result [facility] [place] [address], from Last 3 Months Insurance MEDICAID [facility] MEDICAID [facility] [employer] Care Teams Traffic Investigator Relationship Specialty Start Date End Date Natacha Hoyt MD [address] [place] [phone] PCP - General Family Medicine 08/29/23 Ric Malik MD [address] [place] [phone] Consulting Physician Oncology 05/22/22 Ric Malik MD [address] [place] [address] Consulting Physician Oncology 08/28/23
--- OUTSIDE RECORDS SUMMARY | 2025-03-04 20:46 | XMS_ITS ---
Author Organization [facility] Address [address], [facility] [address] [place] [address] Phone Care Team Providers Care Reed Or Wind Instrument Repairer Name Role Phone Ric Malik MD Unavailable [phone] Ric Malik MD Unavailable [phone] Natacha Hoyt MD Primary Care Provider [facility] Status:Enrolled (Active) Start date:11/11/2024 Enrollment date:11/11/2024 Related social drivers of health:Intimate Partner Violence, Social Connections, Alcohol Use, Tobacco Use, Financial Resource Strain,Stress, Physical Activity, Food Insecurity, Transportation Needs, Housing Stability, Utilities Continued Care and Services Coordination
--- OUTSIDE RECORDS SUMMARY | 2025-03-04 20:46 | XMS_ITS | Referral Summary ---
Author Organization [facility] Address [address] [place] [address] Care Team Providers Care Refinisher Name Role Phone Sadia Morris NP Primary Care Provider + Allergies Active Allergy Reactions Criticality Noted Date Comments Sumatriptan Muscle pain,Other (See comments) Medium [place] Oil Hives Medium 02/13/2022 Medications cyclobenzaprine (FLEXERIL) [...] on file Legal Sex Female 11:18 PM LOCKSTITCHER Gender Identity Not on file Sexual Orientation Not on file Last Filed Vital Signs Vital Sign Reading Time Taken Comments Blood Pressure 122/71 09/13/2024 3:03 PM LOCKSTITCHER Pulse 64 09/13/2024 3:03 PM LOCKSTITCHER Temperature 36.2 C (97.2 F) 09/13/2024 3:03 PM LOCKSTITCHER Respiratory Rate 16 09/13/2024 3:03 PM LOCKSTITCHER Oxygen Saturation 97% 09/13/2024 3:03 PM LOCKSTITCHER Inhaled Oxygen Concentration - - Weight 90.3 kg (199 lb) 09/12/2024 2:18 AM LOCKSTITCHER Height 157.5 cm (5' 2 ) 09/12/2024 2:18 AM LOCKSTITCHER Body Mass Index 36.4 09/12/2024 2:18 AM LOCKSTITCHER Plan of Treatment Not on file Procedures Procedure Name Priority Date/Time Associated Diagnosis Comments HEMOGLOBIN A1C Routine 09/12/2024 4:58 AM LOCKSTITCHER EGFR STAT 09/11/2024 11:22 PM LOCKSTITCHER from Last 3 Months or Most Recently Relevant to Health Maintenance Results * Hemoglobin A1c (09/12/2024 4:58 AM LOCKSTITCHER) Hgb A1C 5.4 4.0 - 5.6 % Estimated Average Glucose 108 mg/dL [facility] ([place]) Comment: The ADA recommends reporting an estimated Average Glucose (eAG) with all Hemoglobin A1c results using the equation derived from a study of 507 normal and diabetic adults. Minority populations were underrepresented and children were not included. (Diabetes Care 31:5375-3622, 2008). The eAG is not equivalent to a fasting glucose. Blood 09/12/2024 4:58 AM LOCKSTITCHER 09/12/2024 5:07 AM LOCKSTITCHER Dionicio Levin MD LAB BLOOD ORDERABLES Final Resu lt JUDITH THOMPSON ([place]) 1 [facility] Department of Laboratories [place], [place] [id number] * eGFR (09/11/2024 11:22 PM LOCKSTITCHER) eGFR 69 >=60 mL/min/1. 73 m2 Comment: [...] reviewed 2021. Blood 09/11/2024 11:2 2 PM LOCKSTITCHER 09/11/2024 11:22 PM LOCKSTITCHER Valdez Lee MD LAB BLOOD ORDERABLES Final R esult [facility]) 1 [facility] [place] [address] from Last 3 Months or Most Recently Relevant to Health Maintenance Insurance Advance Directives For more information, please contact: [phone] * LIMITED - No CPR (Latest Code [...] 1:26 AM 09/12/2024 5:23 AM Care Teams Refinisher Relationship Specialty Start Date End Date Sadia Morris NP [address] [facility] [address] [place] [id number] PCP - General Nurse Practitioner 02/28/24
--- OUTSIDE RECORDS SUMMARY | 2025-03-04 20:46 | XMS_ITS | Clinical Summary ---
Author Organization [facility] Address [address] [place] [address] Care Team Providers Care Pack Operator Name Role Phone Sadia Morris NP Primary Care Provider + Allergies Active Allergy Reactions Criticality Noted Date Comments Sumatriptan Muscle pain,Other (See comments) Medium [place] Oil Hives Medium 02/13/2022 Medications cyclobenzaprine (FLEXERIL) [...] on file Legal Sex Female 11:18 PM CLIENT REPRESENTATIVE Gender Identity Not on file Sexual Orientation Not on file Obstetrics History Last Filed Vital Signs Vital Sign Reading Time Taken Comments Blood Pressure 122/71 09/13/2024 3:03 PM CLIENT REPRESENTATIVE Pulse 64 09/13/2024 3:03 PM CLIENT REPRESENTATIVE Temperature 36.2 C (97.2 F) 09/13/2024 3:03 PM CLIENT REPRESENTATIVE Respiratory Rate 16 09/13/2024 3:03 PM CLIENT REPRESENTATIVE Oxygen Saturation 97% 09/13/2024 3:03 PM CLIENT REPRESENTATIVE Inhaled Oxygen Concentration - - Weight 90.3 kg (199 lb) 09/12/2024 2:18 AM CLIENT REPRESENTATIVE Height 157.5 cm (5' 2 ) 09/12/2024 2:18 AM CLIENT REPRESENTATIVE Body Mass Index 36.4 09/12/2024 2:18 AM CLIENT REPRESENTATIVE Plan of Treatment Health Maintenance Due Date [...] Comments HEMOGLOBIN A1C Routine 09/12/2024 4:58 AM CLIENT REPRESENTATIVE EGFR STAT 09/11/2024 11:22 PM CLIENT REPRESENTATIVE from Last 3 Months or Most Recently Relevant to Health Maintenance Results * Hemoglobin A1c (09/12/2024 4:58 AM CLIENT REPRESENTATIVE) Hgb A1C 5.4 4.0 - 5.6 % Estimated Average Glucose 108 mg/dL [facility]OM[facility] ([place]) Comment: The ADA recommends reporting an estimated Average Glucose (eAG) with all Hemoglobin A1c results using the equation derived from a study of 507 normal and diabetic adults. Minority populations were underrepresented and children were not included. (Diabetes Care 31:4598-6935, 2008). The eAG is not equivalent to a fasting glucose. Blood 09/12/2024 4:58 AM CLIENT REPRESENTATIVE 09/12/2024 5:07 AM CLIENT REPRESENTATIVE us Dionicio Levin MD LAB BLOOD ORDERABLES Final Resu lt JUDITH THOMPSON ([place]) 1 [facility] [place] [address] * eGFR (09/11/2024 11:22 PM CLIENT REPRESENTATIVE) eGFR 69 >=60 mL/min/1. 73 m2 Comment: [...] reviewed 2021. Blood 09/11/2024 11:2 2 PM CLIENT REPRESENTATIVE 09/11/2024 11:22 PM CLIENT REPRESENTATIVE Valdez Lee MD LAB BLOOD ORDERABLES Final R esult [facility] ([place]) 1 [facility] [place] [address] from Last 3 Months or Most Recently Relevant to Health Maintenance Insurance [facility] Advance Directives For more information, please contact: [phone] * LIMITED - No CPR (Latest Code [...] 1:26 AM 09/12/2024 5:23 AM Care Teams Pack Operator Relationship Specialty Start Date End Date Sadia Morris NP [address] [facility] [address] [place] [id number] PCP - General Nurse Practitioner 02/28/24
--- OUTSIDE RECORDS SUMMARY | 2025-03-04 20:46 | XMS_ITS | Clinical Summary ---
Author Organization [facility] [employer] Address [address] [place] [address] Care Team Providers Care Director Of Curriculum Name Role Phone Sadia Morris Primary Care Provider [phone] Sadia Morris Unavailable Source Comments [facility],non-owned Affiliates and Associated Physician Practices is amultiple site organization consisting of ambulatory clinics and hospital sitesin [place], [place], [place] and [place]. This disclosure is being madepursuant to the Care Everywhere program and may not contain all information available regarding this patient. Last updated 18.[facility] [employer] Allergies Active Allergy Reactions Criticality Noted Date Comments Sumatriptan Myalgias 03/15/2023 Sumatriptan Headache 10/07/2024 [place] Oil Rash,Itching,Skin Reactions Medium 08/01/2017 actual sunflowers themselves [place] Oil Nausea and/or Vomiting 10/07/2024 Medications * [...] as needed Active Glucagon 3 MG/DOSE POWD [place] 3 mg into the nose as needed [...] Sulfate (IRON PO) Active Continuous Glucose Sensor ([employer] G7 Sensor) [facility] APPLY 1 SENSOR TOPICALLY, CHANGE AND REPLACE EVERY 10 DAYS. USE TO MONITOR GLUCOSE. 09/01/20 24 Active nystatin (Mycostatin) 275446 UNIT/GM cream Apply to affected area 2 [...] Description 02/01/2025 9:31 AM CDT Anesthesia Event [facility] ENDOSCOPY [address] [place] [address] Ninfa Cruz MD Robb, Romina Adams APRN-FOAM CUTTING SUPERVISOR 02/01/2025 9:00 AM CDT - 02/01/2025 9:30 AM CDT Surgery [facility] ENDOSCOPY [address] [place] [address] Salomon Sapp MD EGD +/- banding w/ renettafeler 02/01/2025 7:50 AM CDT - 02/01/2025 10:34 AM CDT Hospital Encounter [facility] LIBAN OP [address] [place] [address] Salomon Sapp MD Surgery General Discharge Disposition: Home or Self Care 02/01/2025 Travel 01/21/2025 Orders Only [facility] - GI [address] [place] [address] Salomon Sapp MD 12/15/2024 9:30 AM OPERATIONS EXECUTIVE Office Visit [facility] - GI [address] [place] [address] Salomon Sapp MD Liver cirrhosis secondary to [...] and heating? Not hard at all 10/07/2024 [facility] - Occupational [...] any time in the past 12 m [facility], were you homeless or living in a half-way (including now)? No 10/07/2024 Comments No Sex and Gender Information Value Date Recorded Sex Assigned at Female 04/21/2024 2:38 PM CDT Legal Sex Female 5:23 PM OPERATIONS EXECUTIVE Gender Identity Female 04/21/2024 2:38 PM CDT [...] Info) Description 03/19/2025 11:30 AM CDT Appointment [facility] MRI [address] [place] [address] Salomon Sapp MD [address] [place] [address] 05/03/2025 10:30 AM CDT Hospital Encounter [facility] ENDOSCOPY [address] [place] [address] Salomon Sapp MD [address] [place] [address] [address] [place] [address] Surgery General 05/03/2025 10:30 AM CDT - 05/03/2025 11:00 AM CDT Surgery [facility] ENDOSCOPY [facility] [place] [phone] Salomon Sapp MD [address] [place] [address] [address] [place] [address] EGD +/- banding w/ Sekou 05/07/2025 12:30 PM CDT Office Visit [facility] - GI [address] [place] [phone] Salomon Sapp MD [address] [place] [address] [address] [place] [address] 09/24/2025 9:30 AM OPERATIONS EXECUTIVE Appointment [facility] US [facility] [place] [phone] Salomon Sapp MD [address] [place] [address] [address] [place] [address] 09/24/2025 10:30 AM OPERATIONS EXECUTIVE Office Visit [facility] - GI [address] [place] [phone] Salomon Sapp MD [address] [place] [address] [address] [place] [address] Scheduled Procedures Name Priority Associated Diagnoses Date/Ti [...] Management General On track( 025 9:52 AM OPERATIONS EXECUTIVE) Mary Kay Andrade, RN Note: Expected end date: ongoing Interventions: Take all medications as prescribed Let your doctor know right away about any changes in your medications Make sure to request a refill of your medication at least one week prior to your last dose Procedures Procedure Name Priority Date/Time Associated Diagnosis Comments EGD Routine 02/01/2025 9:33 AM CDT NE ED EGD FLEX TRANSORAL DX 02/01/2025 9:26 AM CDT Esophageal varices without bleeding, unspecified esophageal varices type (HCC) Special Needs EGD January Raegan Received: Yesterday Makayla Pacheco, RN P [facility] Schedulers - Endoscopy [facility] [place], Please schedule an EGD for Dr. Sapp [...] CDT HEMOGLOBIN A1C Routine 10/08/2024 9:31 AM OPERATIONS EXECUTIVE ENDOSCOPY, COLON, DIAGNOSTIC Routine 08/27/2022 12:28 PM OPERATIONS EXECUTIVE HEPATITIS C ANTIBODY Routine 11/14/2017 10:15 AM OPERATIONS EXECUTIVE from Last 3 Months or Most Recently [...] entire procedure. Procedure Code(s): --- Professional --- 28328, Esophagogastroduo denoscopy, flexible, transoral; with band ligation of esophageal/gastri c varices Diagnosis Code(s): --- Professional --- I85.00, Esophageal varices without bleeding K22.89, Other specified disease of esophagus K76.6, Portal hypertension K31.89, Other diseases of stomach and duodenum CPT copyright 2021 [employer]. All rights reserved. The codes documented in this report are preliminary and upon quality specialist review may be revised to meet current compliance requirements. _ Salomon Sapp MD 02/01/2025 9:52:30 AM This report has been signed electronically. Note Initiated On: 02/01/2025 9:33 AM Number of Addenda: [address] PROVATION 02/01/2025 9:33 AM CDT us Salomon Sapp MD GI PROCEDURE ORDERABLES Edited Result - Final [facility] [employer]OVATION * (ABNORMAL) GLUCOSE - POINT OF CARE (02/01/2025 8:55 AM CDT) Glucose WB/POC 155(H) 70 - 99 mg/dL 02/01/2025 11:56 AM CDT [facility] Specimen Type Cap Fingerstick 2024 11:56 AM CDT [facility] Blood BLOOD SPECIMEN / Unknown 02/01/2025 8:55 AM CDT 02/01/2025 11:56 AM CDT us Salomon Sapp MD LAB - POINT OF CARE ORDERABLES Final Result Performing Organization Address City/[facility]/ZIP Co de Phone Number [facility]OR[facility]ORY [address] [address], [facility] [phone] * (ABNORMAL) PT-INR (01/21/2025 12:20 PM CDT) INR 1.2(H) [facility] Comment: Reference Range 0.9-1.1 Moderate-intensity Warfarin Therapy 2.0-3.0 Higher-intensity Warfarin Therapy 3.0-4.0 PT 12.6(H) 9.0 - 11.5 sec [facility] Comment: For additional information, please refer to http://education.Neo PLM/faq/OJA044 (This link is being provided for informational/ educational purposes only.) REPORT COMMENT: NAME BRAND AN UPDATE OR CORRECTION HAS BEEN MADE TO NAME Test Performed at: [facility] [address] GISSEL OLIVER MD 01/21/2025 12:2 0 PM CDT 01/21/2025 12:21 PM CDT us Salomon Sapp MD LAB - COAGULATION ORDERABLES F inal Result Performing Organization Address [facility] Co de Phone Number [facility] [id number] [place] [address] * FERRITIN (01/21/2025 12:19 PM CDT) [facility] Ferritin 27 16 - 232 ng/mL [facility] Comment: REPORT COMMENT: NAME BRAND Test Performed at: [facility] [address] [email or web address] [address] GISSEL OLIVER MD 01/21/2025 12:1 9 PM CDT 01/21/2025 12:20 PM CDT us Salomon Sapp MD LAB - CHEMISTRY ORDERABLES Fin al Result Performing Organization Address [facility] [place] [address] * (ABNORMAL) PLATELET ESTIMATION (01/21/2025 12:17 PM CDT) [facility] Platelet Estimation DECREASED (A) [facility] Comment: Test Performed at: [facility] [address] GISSEL OLIVER MD 01/21/2025 12:1 7 PM CDT 01/21/2025 12:18 PM CDT us Salomon Sapp MD LAB - HEMATOLOGY ORDERABLES Fi nal Result Performing Organization Address [facility] [place] [address] * ALPHA FETOPROTEIN BLOOD TUMOR MARKER (01/21/2025 12:17 PM CDT) [facility] Alpha-Fetoprotei n Tumor Marker 2.5 [...] BEEN MADE TO NAME Test Performed at: [facility] [address] [place] [address] [facility] 01/21/2025 12:1 7 PM CDT 01/21/2025 12:18 PM CDT us Salomon Sapp MD LAB - CHEMISTRY ORDERABLES Fin al Result [facility] [address] [place] [address] * (ABNORMAL) CBC WITH DIFFERENTIAL (01/21/2025 12:17 [...] 0.5 % [facility] Comment: Test Performed at: [facility] [address] [facility] [place] [address] GISSEL OLIVER MD Blasts [facility] nRBC [facility] Comments [facility] Comment: Test Performed at: [facility] [place] [place] [address] GISSEL OLIVER MD 01/21/2025 12:1 7 PM CDT 01/21/2025 12:18 PM CDT Salomon Sapp MD LAB - HEMATOLOGY ORDERABLES Fi nal Result [facility] [address] [place] [address] * (ABNORMAL) COMPREHENSIVE METABOLIC PANEL (01/21/2025 12:17 [...] 29 U/L [facility] Comment: Test Performed at: [facility] [address] [place] [address] GISSEL OLIVER MD 01/21/2025 12:1 7 PM CDT 01/21/2025 12:18 PM CDT Salomon Sapp MD LAB - CHEMISTRY ORDERABLES Fin al Result [facility] [id number] [place] [address] * HEMOGLOBIN A1C (10/08/2024 9:31 AM OPERATIONS EXECUTIVE) Hemoglobin A1c 5.3 <=5.6 % 10/08/2024 1:40 PM OPERATIONS EXECUTIVE [facility] Estimated Average Glucose 105 mg/dL 10/08/2024 1:40 PM OPERATIONS EXECUTIVE [facility] Comment: HbA1c Interpretation: Normal : < 5.7% Pre-diabetes: 5.7-6.4% Diabetes: Equal to or greater than 6.5% Test results diagnostic of diabetes should be repeated for confirmation. Treatment target values recommended by ADA and other clinical organizations should be used to evaluate metabolic control in patients. Reference: [place] [employer], Standards of Care in Diabetes -2020 In patients 70 years and older consider HbA1c target range of 7.0-7.5% (Reference: Garcia Contreras et al. JAMDA. 2012) The Sebia assay for the measurement of HbA1c is a National Glycohemoglobin Standardization Program (NGSP) certified method. Blood BLOOD SPECIMEN / Unknown Lab Venipuncture / Unknown 10/08/2024 9:31 AM OPERATIONS EXECUTIVE 10/08/2024 9:59 AM OPERATIONS EXECUTIVE us Ron Dawson MD LAB - CHEMISTRY ORDERABLES Final Result [facility] [address] [place] [address], [facility] [phone] * ENDOSCOPY, COLON, DIAGNOSTIC (08/27/2022 12:28 PM OPERATIONS EXECUTIVE) Report Endoscopy POC Endoscopy Department Report _ [...] entire procedure. Procedure Code(s): --- Professional --- 39707, Colonoscopy, flexible; with removal of tumor(s), polyp(s), or other lesion(s) by snare technique Diagnosis Code(s): --- Professional --- K63.5, Polyp of colon K64.4, Residual hemorrhoidal skin tags R10.84, Generalized abdominal pain K92.1, Melena (includes Hematochezia) CPT copyright 2019 [employer]. All rights reserved. The codes documented in this report are preliminary and upon quality specialist review may be revised to meet current compliance requirements. Salomon Sapp MD 08/27/2022 1:27:31 PM This report has been signed electronically. Note Initiated On: 08/27/2022 12:28 PM Number of Addenda: [address] [address] [facility] [employer]OVATION 08/27/2022 12:2 8 PM OPERATIONS EXECUTIVE Salomon Sapp MD GI PROCEDURE ORDERABLES Edited Result - Final [facility] PROVATION * HEPATITIS C ANTIBODY (11/14/2017 10:15 AM OPERATIONS EXECUTIVE) Hepatitis C Antibody Non-react vishal Non-reac tive [facility] Comment: Hepatitis C Antibody screen indicates no serologic evidence of past or current infection with Hepatitis C Virus. Patients with unexplained liver disease who are immunocompromised or suspected of having acute Hepatitis C infection may benefit from Nucleic Acid Test (USMAN) for Hepatitis C Viral RNA to confirm Hepatitis C status. Blood specimen (specimen) BLOOD SPECIMEN / Unknown 11/14/2017 10:15 AM OPERATIONS EXECUTIVE 11/14/2017 11:03 AM OPERATIONS EXECUTIVE us Verito Mcclendon MD LAB - CHEMISTRY ORDERABLES Final Result [address] [phone] from Last 3 Months or Most Recently Relevant to Health Maintenance Insurance [facility] Advance Directives * Full Code (Latest Code Status on File) Date Activated Date Inactivated Comments 10/07/2024 6:10 PM 10/11/2024 5:22 PM Care Teams Director Of Curriculum Relationship Specialty Start Date End Date Sadia Morris [address] [place] [address] [address] [place] [address] PCP - General 09/13/24 Sadia Morris [address] [place] [address] [address] [place] [address] 09/13/24
--- OUTSIDE RECORDS SUMMARY | 2025-03-04 20:46 | XMS_ITS | Encounter Summary ---
Author Organization [facility] Address [address] [place] [address] Care Team Providers Care Cafeteria Monitor Name Role Phone Sadia Morris Primary Care Provider [phone] Sadia Morris Primary Care Provider [phone] Sadia Morris Unavailable Reason for Visit * Reason Onset Date Comments MEDICATION REFILL 01/21/2024 Encounter Details Date Type Department Care Team (Late st Contact Info) Description 01/21/2024 Refill [facility] - GI [address] [place] [address], [facility] [place] [phone] Salomon Sapp MD [address] [place] [address] [place] [address] MEDICATION REFILL Social History Tobacco Use Types [...] PM CDT Legal Sex Female 5:23 PM FAMILY LIVING EDUCATOR Gender Identity Female 04/21/2024 2:38 PM CDT [...] Info) Description 03/19/2025 11:30 AM CDT Appointment [facility] MRI [address] [place] [address] Salomon Sapp MD [address] [place] [address] [address] [place] [address] 05/03/2025 10:30 AM CDT Hospital Encounter [facility] ENDOSCOPY [address] [place] [address] Salomon Sapp MD [address] [place] [address] [address] [place] [address] Surgery General 05/03/2025 10:30 AM CDT - 05/03/2025 11:00 AM CDT Surgery [facility] ENDOSCOPY [address] [place] [address] Salomon Sapp MD [address] [place] [address] [address] [place] [address] EGD +/- banding w/ Raeganler 05/07/2025 12:30 PM CDT Office Visit [facility] - GI [address] [place] [phone] Salomon Sapp MD [address] [place] [address] [address] [place] [address] 09/24/2025 9:30 AM FAMILY LIVING EDUCATOR Appointment [facility] [address] [place] [address] Salomon Sapp MD [address] [place] [address] [address] [place] [address] 09/24/2025 10:30 AM FAMILY LIVING EDUCATOR Office Visit [facility] - GI [address] [place] [phone] Salomon Sapp MD [address] [place] [address] [address] [place] [address] Scheduled Procedures Name Priority Associated Diagnoses Date/Ti in ESOPHAGOGASTRODUODENOSCOPY ( EGD) DIAGNOSTIC Esophageal varices without bleeding, unspecified esophageal varices type (HCC) 05/03/2025 10:30 AM CDT documented as of this encounter Goals Goal Patient Goal Type Associated Problems Recent Progress Patient-Stated? Author Medication Management General On track( 025 9:52 AM FAMILY LIVING EDUCATOR) Mary Kay Andrade, RN Note: Expected end date: ongoing Interventions: Take all medications as prescribed Let your doctor know right away about any changes in your medications Make sure to request a refill of your medication at least one week prior to your last dose documented as of this encounter Visit Diagnoses Not on filedocumented in this encounter Care Teams Cafeteria Monitor Relationship Specialty Start Date End Date Alexandra Sadia Granados [address] [place] [address] [address] [place] [address] PCP - General 09/24/23 09/12/24 Sadia Morris [address] [place] [address] [address] [place] [address] PCP - General 09/13/24 Sadia Morris [address] [place] [address] [address] [place] [address] 09/13/24 documented as of this encounter
--- NOTE | 2025-03-04 21:09 | P.HP_ITS ---
H&P: HPI History of Present Illness Date/Time: 03/04/25 21:09 Chief Complaint: Right flank pain, obstructing mid right ureteral stone Narrative: This is a 44 year old female patient with significant medical history as listed below who is admitted to the hospital with obstructing right ureteral stone and abnormal UA as well as mild findings of YANIQUE. Pain was treated with morphine in ER. Urology consulted and Dr. Avalos states to keep patient NPO for stent tomorrow. Rocephin was given in ER and will be continued pending urine culture. No prior positive cultures on file to assess resistance patterns. Patient states she has had some nausea recently but no vomiting. She reports a past history of esophageal varices and cirrhosis related to LOVE. She reports an admission back in September for hematemesis. She has a history of thrombocytopenia related to this condition as well. No signs or symptoms of active bleeding. Patient reports prior kidney stones requiring interventions. Labs show decreased potassium, thrombocytopenia, mild metabolic acidosis with slightly elevated anion gap but normal glucose. Added beta-hydroxybutyrate which is mildly elevated. Minor YANIQUE noted with an estimated GFR 49. Patient on IV fluids due to NPO status and YANIQUE. Careful to avoid significant fluid overload due to liver status. Review of Systems Review of Systems: All systems reviewed & are unremarkable except as noted in HPI and below PMFSH Past Medical History Medical History Type 2 diabetes mellitus (~2006) Rectal bleeding Left knee pain Medial meniscus tear Chronic nausea Gastroesophageal reflux disease Esophageal varices determined by endoscopy Irritable bowel syndrome with alternating bowel habits Portal hypertensive gastropathy Cirrhosis Bipolar 2 disorder Alopecia Cat scratch of forearm Body mass index (BMI) 35 or more (05/05/19) Vaginal yeast infection Type 2 diabetes mellitus with hyperglycemia Benign essential hypertension Abnormal vaginal bleeding Abnormal CT of brain Nausea & vomiting Hx of renal calculi (~07/2021) Portal hypertension (~07/2021) Chronic GERD Ganglion cyst Vitamin D deficiency Dyslipidemia BMI 40.0-44.9, adult Anxiety and depression HTN (hypertension) Type 2 diabetes mellitus with other circulatory complications (~2006) Avulsion fracture of right calcaneus with delayed healing (~2016) Other and unspecified hyperlipidemia (~2018) Hypertension complicating diabetes (~2013) Iron deficiency anemia due to chronic blood loss (~2016) 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: [facility] Microalbuminuria due to type 2 diabetes mellitus (~2017) Migraine without aura, not intractable, with status migrainosus (~1992) meds tried: midrin (helpful), imitrex (no help), zomig, topamax (helpful) Recurrent major depressive disorder in partial remission (~1992) Renal cyst, acquired (~2011) Hyperlipidemia associated with type 2 diabetes mellitus (~2018) Unspecified cirrhosis of liver (~2014) LOVE Surgical History Surgical History History of urethral stent (~07/2021) H/O: hysterectomy H/O left knee surgery Status post right foot surgery (~2017) History of cholecystectomy (~2017) Family History Family History Father Hypertension Cerebrovascular accident Family history of diabetes mellitus in first degree relative Diabetes mellitus Mother Hypertension Other Family history of Alzheimer's disease Family history of cardiovascular disease Family history of chronic obstructive pulmonary disease Family history of congestive heart failure Family history of hearing loss Family history of migraine headaches Family history of obesity Social History Social History Social History: , no children. Unemployed. Caffeine-rarely Smoking packs per day: 1 Smoking cigarettes per day: 20.0 Years smoked: 13 Smoking pack-years: 13.00 Smoking status: Current every day smoker Tobacco type: e-cigarettes/vaping Smoking end date: 10/14/06 Alcohol intake: former Drinks per week: 1 Substance use: never Substance use type: does not use Last use: Quit 1996 Do You Feel Safe in your Home?: Yes Lack of Transportation: No Lack of Food: Never True Current Housing: I Have Housing Concerned About Future Housing: No Difficulty Paying Gas/Electric Bills: No Difficulty Paying for Meds: No Currently Unemployed: No Education: Associate Degree Difficulty w/ Childcare or Family Care: No Living arrangements: with family Additional living arrangements comments: lives with soon to be x- Occupation/Education: occupation Gender identity (if verbalized by the patient): Female Spiritual care concerns: No Agree to blood products: Yes Meds Home Medications and Allergies Home Medications ?Medication ?Instructions ?Recorded ?Confirmed ?Type glucagon 3 mg/actuation nasal 3 mg intranasal ONCE PRN 09/23/21 05/22/25 Rx spray (Baqsimi) hypoglycemia #1 ea duloxetine 30 mg capsule,delayed 30 mg PO BID #180 caps 09/22/21 03/04/25 Rx release OneTouch Verio test strips (blood #100 ea 05/29/22 03/04/25 Rx sugar diagnostic) diphenhydramine HCl 25 mg capsule 25 mg PO TID PRN itching 06/01/22 03/04/25 History (Benadryl) buspirone 15 mg tablet 15 mg PO BID 10/25/22 03/04/25 History pen needle, diabetic 32 gauge x #300 ea 02/13/23 03/04/25 Rx (BD Ultra-Fine Shantelle Pen Needle) hydroxyzine pamoate 25 mg capsule 50 mg PO Q4H PRN Anxiety 07/25/23 03/04/25 History (Vistaril) prazosin 2 mg capsule 2 mg PO QHS 01/27/24 03/04/25 History albuterol sulfate 90 mcg/actuation 1 puff inhalation Q4H PRN 04/06/24 03/04/25 Rx aerosol inhaler shortness of breath or wheezing #6.7 grams blood-glucose sensor (Dexcom G7 #9 ea 06/04/24 03/04/25 Rx Sensor device) cholecalciferol (vitamin D3) 50 50 mcg PO DAILY 07/24/24 03/04/25 History mcg (2,000 unit) capsule (Vitamin D3) ferrous sulfate 325 mg (65 mg 325 mg PO DAILY 07/24/24 03/04/25 History iron) tablet lidocaine 3 %-hydrocortisone 0.5 % 1 applic RECTAL BID PRN Pain 07/24/24 03/04/25 History rectal cream vitamin B complex 1 tablet PO DAILY 07/24/24 03/04/25 History doxepin 10 mg capsule 25 mg PO QHS 08/13/24 03/04/25 History cariprazine 6 mg capsule (Vraylar) 6 mg PO DAILY 09/21/24 03/04/25 History dexlansoprazole 60 mg 60 mg PO DAILY 1 month #30 caps 09/24/24 03/04/25 Rx capsule,biphase delayed release carvedilol 3.125 mg tablet 3.125 mg PO Q12H #180 tabs 10/20/24 03/04/25 Rx insulin regular hum U-500 conc 500 See Rx Instructions .Route 10/20/24 03/04/25 Rx unit/mL(3 mL) subcut pen (Humulin .COMPLEX #39 mL R U-500 (Conc) Insulin Kwikpen) cyclobenzaprine 10 mg tablet 10 mg PO TID PRN muscle spasm #60 11/11/24 03/04/25 Rx tabs tirzepatide 10 mg/0.5 mL 10 mg (0.5 mL) subcut WEEKLY #6 mL 11/11/24 03/04/25 Rx subcutaneous pen injector (Mounjaro) rizatriptan 5 mg tablet See Rx Instructions PO .COMPLEX 11/20/24 03/04/25 Rx PRN Migraine Headache #10 tabs atorvastatin 80 mg tablet 80 mg PO QHS #90 tabs 12/21/24 03/04/25 Rx folic acid 1 mg tablet 1 mg PO DAILY #90 tabs 12/21/24 03/04/25 Rx empagliflozin 25 mg tablet 25 mg PO DAILY #90 tabs 12/31/24 03/04/25 Rx (Jardiance) lisinopril 2.5 mg tablet See Rx Instructions .Route 02/01/25 03/04/25 Rx .COMPLEX #90 tabs pantoprazole 40 mg tablet,delayed See Rx Instructions .Route 02/01/25 03/04/25 Rx release .COMPLEX #90 tabs topiramate 200 mg tablet See Rx Instructions .Route 02/01/25 03/04/25 Rx .COMPLEX #90 tabs fluticasone propionate 50 1 spray intranasal DAILY #16 grams 02/25/25 03/04/25 Rx mcg/actuation nasal spray,suspension (Flonase Allergy Relief) Allergies Allergy/AdvReac Type Severity Reaction Status Date / Time sunflower oil Allergy Intermediate Hives Verified 03/04/25 23:42 sumatriptan (From Imitrex) AdvReac Intermediate Muscle Verified 03/04/25 23:42 Spasms Vital Signs Vital Signs - 24 hr 03/04/25 17:31 03/04/25 20:06 Temperature 36.3 C L 36.4 C Pulse Rate 85 85 Respiratory Rate 16 14 Blood Pressure 106/71 99/71 L Pulse Oximetry 99 100 Oxygen Delivery Room Air Exam Narrative: GENERAL: Well-appearing, well-nourished, and in no acute distress. HEAD: Normocephalic, atraumatic. ENT: Mucous membranes moist. NECK: Supple. CHEST: Clear to auscultation. No respiratory distress. HEART: Regular rate and rhythm. Normal peripheral pulses. ABDOMEN: Soft, mild right-sided discomfort without guarding, nondistended, no CVA tenderness. EXTREMITIES: Normal range of motion. No edema. SKIN: Warm, dry, no rash. NEURO: Alert and oriented x3. PSYCH: Normal mood and affect. H&P: Results Labs Labs: Short CBC 03/04/25 Range/Units 20:04 WBC 4.7 (4.5-10.0) K/mm3 Hgb 13.3 (12.0-15.0) g/dL Hct 41.8 (37.0-47.0) % Plt Count 57 L (150-375) k/mm3 BMP 03/04/25 20:04 Sodium 140 Potassium 3.1 L Chloride 104 Carbon Dioxide 19 L BUN 21 H Creatinine 1.19 H Glucose 114 H Calcium 9.3 Liver Function 03/04/25 Range/Units 20:04 Total Bilirubin 1.2 (0.2-1.3) mg/dL AST 47 H (14-36) U/L ALT 34 (6-35) U/L Alkaline Phosphatase 87 (38-126) U/L Albumin 4.6 (3.5-5.1) g/dL Urine 03/04/25 Range/Units 19:50 Urine Color Dark yellow (Yellow) Urine Appearance Turbid H (Clear) Urine pH 5.5 (5.0-9.0) Ur Specific Lamy 1.033 (1.001-1.035) Urine Protein 2+ H (Negative) mg/dL Urine Glucose (UA) 3+ H (Negative) mg/dL Pulse Oximetry SpO2 results: 99-100% on room air Attestation: I personally reviewed and interpreted this pulse oximetry as follows: Interpretation: No need for supplemental oxygenation at this time Imaging CT scan - abdomen: Radiologist's impression: CLINICAL INDICATION: Right lower quadrant and right flank pain with hematuria COMPARISON: 01/12/2025. Reference is also made to a renal ultrasound dated 12/06/2022 TECHNIQUE: Multiple contiguous axial images of the abdomen and pelvis were performed without the administration of intravenous contrast The dose-length product (DLP) was 223.54 mGy-cm. Automated exposure control and iterative reconstruction technique were employed. FINDINGS/OBSERVATIONS: Visualized lower thorax: The bilateral lung bases are clear. The heart is of normal size, without pericardial effusion. Small hiatal hernia is present. Liver: The liver demonstrates homogeneous attenuation and is not enlarged. Gallbladder and biliary system: The gallbladder is surgically absent. Pancreas: Limited evaluation of the pancreas secondary to the lack of intravenous contrast. Spleen: The spleen demonstrates homogeneous attenuation and is significantly enlarged measuring 18 cm in longitudinal dimension. Kidneys: 8 mm nonobstructing calculus within the upper pole of the right kidney. 3 mm nonobstructing calculus within the lower pole of the right kidney. 2 mm nonobstructing calculus within the interpolar region of the right kidney. Mild right-sided hydroureteronephrosis secondary to a 5 mm bilobed calculus within the proximal right ureter. No left-sided hydronephrosis or hydroureter. A 24 mm focus of fluid attenuation is identified within the lower pole of the left kidney consistent with a simple cyst, unchanged from 12/06/2022 renal ultrasound. Adrenal glands: Unremarkable. Gastrointestinal tract: Mural thickening and surrounding inflammatory change is identified within the ascending colon at the level of the hepatic flexure, likely reactive to the retroperitoneal inflammation within the right kidney. No significant diverticula are identified. Appendix: The air-filled appendix is of normal caliber (axial series, images 104 through 114) Vasculature: Unremarkable. Lymph nodes: No pathologically enlarged or morphologically suspicious lymph nodes within the retroperitoneum or at the root of the mesentery. Pelvic structures: The bladder is only minimally distended, and otherwise unremarkable. The uterus is surgically absent. Body wall and musculoskeletal: No significant degenerative disease within the lower thoracic or lumbosacral spine. IMPRESSION: Mild right-sided hydroureteronephrosis secondary to a 5 mm bilobed calculus within the proximal to mid right ureter. Reviewed, dictated and finalized at location A. Assessment and Plan Assessment and plan (1) Ureteral stone with hydronephrosis: Code(s): N13.2 - Hydronephrosis with renal and ureteral calculous obstruction Status: Acute Assessment and Plan: -Right ureteral stone bilobed calculus proximal to mid ureteral with hydroureteronephrosis, too large to pass -Urology consulted by ER, Dr. Avalos states NPO status for stent tomorrow -Abnormal UA with >100 RBCs, 11-20 WBCs, 1+ leukocyte esterase, Moderate squamous cells, 1+ bacteria, 3-5 casts, ketones and glucose -IV Rocephin given in ER -Morphine for pain, no ketorolac/NSAIDs per Urology (2) Abnormal urinalysis: Code(s): R82.90 - Unspecified abnormal findings in urine Status: Acute Assessment and Plan: See above (3) Type 2 diabetes mellitus: Onset Date: ~2006 Qualifiers: Chronic kidney disease stage: stage 2 (GFR 60-89) Diabetes mellitus complication detail: with chronic kidney disease Diabetes mellitus complication status: with kidney complications 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 use Qualified Code(s): E11.22 - Type 2 diabetes mellitus with diabetic chronic kidney disease; N18.2 - Chronic kidney disease, stage 2 (mild); Z79.4 - director long term care (current) use of insulin Code(s): E11.9 - Type 2 diabetes mellitus without complications Status: Acute Assessment and Plan: -Ketones and glucose in urine with serum glucose 114 and UA findings to support dehydration -History of cirrhosis, caution against fluid overload -Mild anion gap acidosis = anion gap 17, carbon dioxide 19 -Cautious fluid hydration and recheck labs overnight in case acidosis worsens requiring insulin drip -Hold tirzepatide while hospitalized, hold empagliflozin due to metabolic acidosis -Continue basal insulin and high dose SSI with Q6HR fingerstick glucose due to NPO status (4) Metabolic acidosis due to diabetes mellitus: Code(s): E11.10 - Type 2 diabetes mellitus with ketoacidosis without coma Status: Acute Assessment and Plan: See above (5) YANIQUE (acute kidney injury): Code(s): N17.9 - Acute kidney failure, unspecified Status: Acute Assessment and Plan: -Mild YANIQUE noted with eGFR 49, Cr 1.19, BUN 21, eCrCl 50 -Cautious IV fluid administration -Add magnesium and phosphorous level (6) Hypokalemia: Code(s): E87.6 - Hypokalemia Status: Acute Assessment and Plan: -Potassium 3.1 in ER -IV replacement and recheck overnight -Add magnesium and phosphorous level (7) Bipolar 2 disorder: Code(s): F31.81 - Bipolar II disorder Status: Acute Assessment and Plan: -Continue home medications (8) Thrombocytopenia: Code(s): D69.6 - Thrombocytopenia, unspecified Status: Acute Assessment and Plan: -Hx of cirrhosis of liver and portal hypertension -Monitor, do not transfuse unless below 20 or acute bleeding below 50 Quality VTE Prophylaxis VTE prophylaxis: mechanical ordered Total time with this patient 120 minutes Hospitalist MIPS Advance Care Plan I have confirmed that the patient's Advanced Care Plan is present, code status is documented, or surrogate decision maker is listed in patient medical record.: Yes Medication Reconciliation I have utilized all available resources to obtain, update and review the patients current medications (includes all prescriptions, OTC, herbals, cannabis, and nutritional supplements).: Yes
[2025-03-04] MEDS: POTASSIUM CHLORIDE INJ 40 MEQ in SODIUM CHLORIDE 0.9% IV 500 ML 130 MEQ IVPB (21:44)
[2025-03-04 22:09] LABS: Glucose Point of Care 82 mg/dl (65-105)
--- NOTE | 2025-03-04 22:16 | PC.NURSE ---
Pt provided with apple juice and jello.
[2025-03-04 22:20] LABS: Device ROOM AIR; Fractional Inspired Oxygen 21 %; HCO3 VBG 19.7 mEq/l (24.0-30.0); PO2 VBG 35.3 mmHg (35.0-45.0); pH VBG 7.321 (7.300-7.400)
[2025-03-04 22:22] LABS: Hemoglobin A1C 5.6 % (<5.7); Magnesium 1.8 mg/dL (1.6-2.3); Phosphorus 3.2 mg/dL (2.5-4.5)
[2025-03-04 22:28] LABS: Beta-Hydroxybutyrate/Acetoacetate 1.93 mmol/L (0.02-0.27)
[2025-03-04] MEDS: SODIUM CHLORIDE 0.9% IV 1,000 ML 125 ML IV CONT (22:28)
[2025-03-04 23:13] VITALS: BP 97/67; PULSE 80; RESP 12; TEMP 36.6; O2SAT 100
[2025-03-04 23:30] VITALS: BMI 31.1
[2025-03-04 23:41] LABS: Glucose Point of Care 111 mg/dl (65-105)
[2025-03-05] VITALS (15 sets, daily range): BP systolic 90–116; BP diastolic 52–80; PULSE 68–84; RESP 8–20; TEMP 36–36.8; O2SAT 95–100
--- NOTE | 2025-03-05 00:24 | ADMGEN ---
Addendum entered by Rosi Morton RN 03/05/25 00:45: Pt arrived at approx 2330. Original Note: This patient, Beulah Garcia, was admitted to [facility] Surg Room 311-01 at approx 2230. Patient/family oriented to hospital policies and general routines including ID bracelet, bed and alarms, visiting hours, pain management, procedures, bathroom and other care routines, personal items, smoking policy, room service/diet, and visiting hours. Information on how to activate the Rapid Response Team has been discussed. Patient/Family are encouraged to report perceived risks to care and to ask questions if they do not understand what they are told or what they should do.
[2025-03-05] MEDS: DOXEPIN HCL 25 MG CAPSULE PO ×2 (01:33→20:37)
[2025-03-05] MEDS: DULoxetine HCL 30 MG CAPSULE.DR PO ×3 (01:33→17:31)
--- NOTE | 2025-03-05 03:49 | PC.NURSE ---
Pt informed RN that she is not currently wearing her CGM. RN notified Sukhwinder Lugo the sales operations lead provider and made him aware.
[2025-03-05 04:52] LABS: Fractional Inspired Oxygen 21 %; HCO3 VBG 17.8 mEq/l (24.0-30.0); PCO2 VBG 32.8 mmHg (42.0-48.0); PO2 VBG 43.3 mmHg (35.0-45.0); pH VBG 7.353 (7.300-7.400)
[2025-03-05 04:54] LABS: Device ROOM AIR
[2025-03-05 05:33] LABS: Basophils Percent Auto 0.4 % (0.2-1.2); Eosinophils Percent Auto 1.4 % (0-4.4); Hematocrit 36.8 % (37.0-47.0); Hemoglobin 11.1 g/dL (12.0-15.0); Immature Granulocyte Absolute 0.01 K/mm3 (0.00-0.031); Immature Granulocyte Percent A 0.4 % (0-0.5); Immature Platelet Fraction Pct 7.5 % (0.9-11.2); Lymphocytes Percent Auto 25.3 % (18.3-44.2); Mean Corpuscular HGB Conc 30.2 g/dl (32-36); Mean Corpuscular Hemoglobin 26.6 pg (26-34); Mean Platelet Volume 13.3 fl (7.4-10.4); Monocytes Absolute Auto 0.1 K/mm3 (0.1-0.6); Monocytes Percent Auto 4.7 % (2.6-8.5); Neutrophils Absolute Auto 1.9 K/mm3 (1.3-6.7); Neutrophils Percent Auto 67.8 % (45.5-73.1); Platelet Count Result 49 k/mm3 (150-375); Red Blood Count 4.18 M/mm3 (4.2-5.4); Red Cell Distribution Width 16.5 % (11.5-14.5); White Blood Count 2.8 K/mm3 (4.5-10.0)
[2025-03-05 05:43] LABS: Albumin Level 3.5 g/dL (3.5-5.1); Anion Gap 11 mmol/L (4-12); Blood Urea Nitrogen 18 mg/dL (7-17); Calcium 8.3 mg/dL (8.4-10.2); Carbon Dioxide 18 mmol/L (22-30); Chloride 111 mmol/L (98-107); Estimated CRCL calculation 65 ml/min; Estimated Glomerular Filt Rate > 60; Glucose 89 mg/dL (65-110); Magnesium 1.8 mg/dL (1.6-2.3); Phosphorus 3.2 mg/dL (2.5-4.5); Potassium 3.4 mmol/L (3.4-5.0); Sodium 140 mmol/L (137-145)
[2025-03-05 05:47] LABS: Beta-Hydroxybutyrate/Acetoacetate 0.87 mmol/L (0.02-0.27)
[2025-03-05] MEDS: SODIUM CHLORIDE 0.9% IV 1,000 ML 125 ML IV CONT (05:52)
[2025-03-05 06:08] LABS: Anisocytosis 1+; Platelet Estimate Decreased (Adequate)
[2025-03-05 06:09] LABS: Burr Cells 1+; Ovalocytes 1+; Schistocytes None Seen
--- NOTE | 2025-03-05 06:30 | WPDURCON ---
Assessment and Plan Assessment and plan (1) Right ureteral stone: Code(s): N20.1 - Calculus of ureter Status: Acute (2) Right renal stone: Code(s): N20.0 - Calculus of kidney Status: Acute Assessment and Plan: KUB this morning to determine right ureteral stone position. If remains in the proximal ureter will likely proceed with right ESWL. Stone has moved more distally we will plan right ureteroscopy with laser lithotripsy stone extraction and possible stent placement Urology Consult Note HPI Date Seen: 03/05/25 Requesting Physician: Tigre Tejada MD Primary Care Provider: Natacha Hoyt MD Consult Narrative Narrative: Beulah Garcia is a 44 year old female who is not known to our practice but has a history of urolithiasis requiring intervention the past. Reviewing prior imaging she is known to have a 7-8 mm calcified stone in her right upper pole for in the past. She now presents with a new obstructing painful 5-6 mm stone in her right mid ureter. She has had no fever chills or gross hematuria. Review of Systems Review of Systems: All systems reviewed & are unremarkable except as noted in HPI and below Cardiovascular: Cardiovascular: Denies chest pain, Denies lightheadedness, Denies palpitations and Denies dyspnea Respiratory: Respiratory: Denies dyspnea Gastrointestinal: Gastrointestinal: Denies diarrhea, Denies nausea and Denies vomiting Genitourinary: Genitourinary: Denies hematuria and Denies dysuria Endocrine: Endocrine: Denies palpitations [facility] Past Medical History Medical History Type 2 diabetes mellitus (~2006) Rectal bleeding Left knee pain Medial meniscus tear Chronic nausea Gastroesophageal reflux disease Esophageal varices determined by endoscopy Irritable bowel syndrome with alternating bowel habits Portal hypertensive gastropathy Cirrhosis Bipolar 2 disorder Alopecia Cat scratch of forearm Body mass index (BMI) 35 or more (05/05/19) Vaginal yeast infection Type 2 diabetes mellitus with hyperglycemia Benign essential hypertension Abnormal vaginal bleeding Abnormal CT of brain Nausea & vomiting Hx of renal calculi (~07/2021) Portal hypertension (~07/2021) Chronic GERD Ganglion cyst Vitamin D deficiency Dyslipidemia BMI 40.0-44.9, adult Anxiety and depression HTN (hypertension) Type 2 diabetes mellitus with other circulatory complications (~2006) Avulsion fracture of right calcaneus with delayed healing (~2016) Other and unspecified hyperlipidemia (~2018) Hypertension complicating diabetes (~2013) Iron deficiency anemia due to chronic blood loss (~2016) 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: [facility] Microalbuminuria due to type 2 diabetes mellitus (~2017) Migraine without aura, not intractable, with status migrainosus (~1992) meds tried: midrin (helpful), imitrex (no help), zomig, topamax (helpful) Recurrent major depressive disorder in partial remission (~1992) Renal cyst, acquired (~2011) Hyperlipidemia associated with type 2 diabetes mellitus (~2018) Unspecified cirrhosis of liver (~2014) LOVE Surgical History Surgical History History of urethral stent (~07/2021) H/O: hysterectomy H/O left knee surgery Status post right foot surgery (~2017) History of cholecystectomy (~2017) Family History Family History Father Hypertension Cerebrovascular accident Family history of diabetes mellitus in first degree relative Diabetes mellitus Mother Hypertension Other Family history of Alzheimer's disease Family history of cardiovascular disease Family history of chronic obstructive pulmonary disease Family history of congestive heart failure Family history of hearing loss Family history of migraine headaches Family history of obesity Social History Social History Social History: , no children. Unemployed. Caffeine-rarely Smoking packs per day: 1 Smoking cigarettes per day: 20.0 Years smoked: 13 Smoking pack-years: 13.00 Smoking status: Current every day smoker Tobacco type: e-cigarettes/vaping Smoking end date: 10/14/06 Alcohol intake: former Drinks per week: 1 Substance use: never Substance use type: does not use Last use: Quit 1996 Do You Feel Safe in your Home?: Yes Lack of Transportation: No Lack of Food: Never True Current Housing: I Have Housing Concerned About Future Housing: No Difficulty Paying Gas/Electric Bills: No Difficulty Paying for Meds: No Currently Unemployed: No Education: Associate Degree Difficulty w/ Childcare or Family Care: No Living arrangements: with family Additional living arrangements comments: lives with soon to be x- Occupation/Education: occupation Gender identity (if verbalized by the patient): Female Spiritual care concerns: No Agree to blood products: Yes Meds Home Medications and Allergies Home Medications ?Medication ?Instructions ?Recorded ?Confirmed ?Type glucagon 3 mg/actuation nasal 3 mg intranasal ONCE PRN 07/06/21 03/04/25 Rx spray (Baqsimi) hypoglycemia #1 ea duloxetine 30 mg capsule,delayed 30 mg PO BID #180 caps 09/22/21 03/04/25 Rx release OneTouch Verio test strips (blood #100 ea 05/29/22 03/04/25 Rx sugar diagnostic) diphenhydramine HCl 25 mg capsule 25 mg PO TID PRN itching 06/01/22 03/04/25 History (Benadryl) buspirone 15 mg tablet 15 mg PO BID 10/25/22 03/04/25 History pen needle, diabetic 32 gauge x #300 ea 02/13/23 03/04/25 Rx / (BD Ultra-Fine Shantelle Pen Needle) hydroxyzine pamoate 25 mg capsule 50 mg PO Q4H PRN Anxiety 07/25/23 03/04/25 History (Vistaril) prazosin 2 mg capsule 2 mg PO QHS 01/27/24 03/04/25 History albuterol sulfate 90 mcg/actuation 1 puff inhalation Q4H PRN 04/06/24 03/04/25 Rx aerosol inhaler shortness of breath or wheezing #6.7 grams blood-glucose sensor (Dexcom G7 #9 ea 06/04/24 03/04/25 Rx Sensor device) cholecalciferol (vitamin D3) 50 50 mcg PO DAILY 07/24/24 03/04/25 History mcg (2,000 unit) capsule (Vitamin D3) ferrous sulfate 325 mg (65 mg 325 mg PO DAILY 07/24/24 03/04/25 History iron) tablet lidocaine 3 %-hydrocortisone 0.5 % 1 applic RECTAL BID PRN Pain 07/24/24 03/04/25 History rectal cream vitamin B complex 1 tablet PO DAILY 07/24/24 03/04/25 History doxepin 10 mg capsule 25 mg PO QHS 08/13/24 03/04/25 History cariprazine 6 mg capsule (Vraylar) 6 mg PO DAILY 12/09/24 05/22/25 History dexlansoprazole 60 mg 60 mg PO DAILY 1 month #30 caps 09/24/24 03/04/25 Rx capsule,biphase delayed release carvedilol 3.125 mg tablet 3.125 mg PO Q12H #180 tabs 10/20/24 03/04/25 Rx insulin regular hum U-500 conc 500 See Rx Instructions .Route 10/20/24 03/04/25 Rx unit/mL(3 mL) subcut pen (Humulin .COMPLEX #39 mL R U-500 (Conc) Insulin Kwikpen) cyclobenzaprine 10 mg tablet 10 mg PO TID PRN muscle spasm #60 11/11/24 03/04/25 Rx tabs tirzepatide 10 mg/0.5 mL 10 mg (0.5 mL) subcut WEEKLY #6 mL 11/11/24 03/04/25 Rx subcutaneous pen injector (Mounjaro) rizatriptan 5 mg tablet See Rx Instructions PO .COMPLEX 11/20/24 03/04/25 Rx PRN Migraine Headache #10 tabs atorvastatin 80 mg tablet 80 mg PO QHS #90 tabs 12/21/24 03/04/25 Rx folic acid 1 mg tablet 1 mg PO DAILY #90 tabs 12/21/24 03/04/25 Rx empagliflozin 25 mg tablet 25 mg PO DAILY #90 tabs 12/31/24 03/04/25 Rx (Jardiance) lisinopril 2.5 mg tablet See Rx Instructions .Route 02/01/25 03/04/25 Rx .COMPLEX #90 tabs pantoprazole 40 mg tablet,delayed See Rx Instructions .Route 02/01/25 03/04/25 Rx release .COMPLEX #90 tabs topiramate 200 mg tablet See Rx Instructions .Route 02/01/25 03/04/25 Rx .COMPLEX #90 tabs fluticasone propionate 50 1 spray intranasal DAILY #16 grams 02/25/25 03/04/25 Rx mcg/actuation nasal spray,suspension (Flonase Allergy Relief) Allergies Allergy/AdvReac Type Severity Reaction Status Date / Time sunflower oil Allergy Intermediate Hives Verified 03/04/25 23:42 sumatriptan (From Imitrex) AdvReac Intermediate Muscle Verified 03/04/25 23:42 Spasms Vital Signs Vital Signs - 24 hr 03/04/25 17:31 03/04/25 20:06 03/04/25 23:13 Temperature 97.4 F L 97.6 F 97.8 F Pulse Rate 85 85 80 Respiratory Rate 16 14 12 Blood Pressure 106/71 99/71 L 97/67 L Pulse Oximetry 99 100 100 Oxygen Delivery Room Air 03/05/25 00:15 03/05/25 01:20 03/05/25 01:31 Temperature 97.8 F Pulse Rate 81 74 74 Respiratory Rate 18 Blood Pressure 105/66 91/54 L Pulse Oximetry 99 Oxygen Delivery 03/05/25 05:32 Temperature 98.0 F Pulse Rate 68 Respiratory Rate 20 Blood Pressure 96/59 L Pulse Oximetry 98 Oxygen Delivery Exam Const: General: no acute distress Resp: Effort & Inspection: normal respiratory effort GI: Inspection: non-distended GI Palp: No abdominal tenderness and No Guarding due to palpation present (GI) Auscultation: normal bowel sounds Results Labs 03/05/25 05:25 03/05/25 05:25 Labs: Short CBC 03/04/25 03/05/25 Range/Units 20:04 05:25 WBC 4.7 2.8 L (4.5-10.0) K/mm3 Hgb 13.3 11.1 L (12.0-15.0) g/dL Hct 41.8 36.8 L (37.0-47.0) % Plt Count 57 L 49 L (150-375) k/mm3 BMP 03/04/25 03/05/25 20:04 05:25 Sodium 140 140 Potassium 3.1 L 3.4 Chloride 104 111 H Carbon Dioxide 19 L 18 L BUN 21 H 18 H Creatinine 1.19 H 0.92 Glucose 114 H 89 Calcium 9.3 8.3 L Liver Function 03/04/25 03/05/25 Range/Units 20:04 05:25 Total Bilirubin 1.2 (0.2-1.3) mg/dL AST 47 H (14-36) U/L ALT 34 (6-35) U/L Alkaline Phosphatase 87 (38-126) U/L Albumin 4.6 3.5 (3.5-5.1) g/dL Urine 03/04/25 Range/Units 19:50 Urine Color Dark yellow (Yellow) Urine Appearance Turbid H (Clear) Urine pH 5.5 (5.0-9.0) Ur Specific [place] 1.033 (1.001-1.035) Urine Protein 2+ H (Negative) mg/dL Urine Glucose (UA) 3+ H (Negative) mg/dL
--- NOTE | 2025-03-05 06:34 | WPDHPUPDATE1 ---
History and Physical Update Update Date/Time: 03/05/25 06:34 History and Physical has been reviewed, including an updated exam of the patient. There are NO changes in the patient's condition. Risks, benefits, and alternatives have been discussed and questions answered. Patient agrees to proceed with procedure.
--- NOTE | 2025-03-05 07:32 | P.PNIM_ITS ---
Progress Note: A&P Assessment and Plan (1) Ureteral stone with hydronephrosis: Code(s): N13.2 - Hydronephrosis with renal and ureteral calculous obstruction Status: Acute Assessment and Plan: * Right ureteral stone bilobed calculus proximal to mid ureteral with hydroureteronephrosis, too large to pass * Urology consulted by ER, Dr. Avalos states NPO status for stent tomorrow * Abnormal UA with >100 RBCs, 11-20 WBCs, 1+ leukocyte esterase, Moderate squamous cells, 1+ bacteria, 3-5 casts, ketones and glucose * IV Rocephin given in ER * Morphine for pain, no ketorolac/NSAIDs per Urology * Urology consulted * KUB this morning * If remains in proximal ureter, proceed w/ r ESWL * Right ureteroscopy w/ laser lithotripsy extraction w/ stent placement (2) Abnormal urinalysis: Code(s): R82.90 - Unspecified abnormal findings in urine Status: Acute Assessment and Plan: * See above (3) Type 2 diabetes mellitus: Onset Date: ~2006 Qualifiers: Chronic kidney disease stage: stage 2 (GFR 60-89) Diabetes mellitus complication detail: with chronic kidney disease Diabetes mellitus complication status: with kidney complications Diabetes mellitus superintendent terminal insulin use: with superintendent terminal use Qualified Code(s): E11.22 - Type 2 diabetes mellitus with diabetic chronic kidney disease; N18.2 - Chronic kidney disease, stage 2 (mild); Z79.4 - group home (current) use of insulin Code(s): E11.9 - Type 2 diabetes mellitus without complications Status: Acute Assessment and Plan: * Ketones and glucose in urine with serum glucose 114 and UA findings to support dehydration * History of cirrhosis, caution against fluid overload * Mild anion gap acidosis = anion gap 17, carbon dioxide 19 * Cautious fluid hydration and recheck labs overnight in case acidosis worsens requiring insulin drip * Hold tirzepatide while hospitalized, hold empagliflozin due to metabolic acidosis * Continue basal insulin and high dose SSI with Q6HR fingerstick glucose due to NPO status * Stable at this time as patient is asymptomatic (4) Metabolic acidosis due to diabetes mellitus: Code(s): E11.10 - Type 2 diabetes mellitus with ketoacidosis without coma Status: Acute Assessment and Plan: * See above (5) YANIQUE (acute kidney injury): Code(s): N17.9 - Acute kidney failure, unspecified Status: Acute Assessment and Plan: * Mild YANIQUE noted with eGFR 49, Cr 1.19, BUN 21, eCrCl 50 * Cautious IV fluid administration * Add magnesium and phosphorous level * 03/05: Cr 0.92, BUN 18, eGFR >60 * Improved (6) Hypokalemia: Code(s): E87.6 - Hypokalemia Status: Acute Assessment and Plan: * Potassium 3.1 in ER * IV replacement and recheck overnight * Add magnesium and phosphorous level * 03/05: K 3.4 (7) Bipolar 2 disorder: Code(s): F31.81 - Bipolar II disorder Status: Acute Assessment and Plan: -Continue home medications (8) Thrombocytopenia: Code(s): D69.6 - Thrombocytopenia, unspecified Status: Acute Assessment and Plan: -Hx of cirrhosis of liver and portal hypertension -Monitor, do not transfuse unless below 20 or acute bleeding below 50 Time Spent With Patient Time: - Subjective Date/time seen: 03/05/25 07:32 Interval history: 44 year old female patient with significant medical history as listed below who is admitted to the hospital with obstructing right ureteral stone and abnormal UA as well as mild findings of YANIQUE. 03/05/2025 Patient sitting in bed at time of examination. Denies any chest pain, SOB, n/v, abdominal pain or back pain at this time. Repeat KUB this morning showed possible right nephrolithiasis. Urology to plan for cysto, right ureteroscopy with stone extraction, possible laser lithotripsy, RPG and stent placement. Patient comfortable at this time and has no other concerns. Blood work and vitals are stable. Review of Systems Review of Systems: All systems reviewed & are unremarkable except as noted in HPI and below Exam Narrative: GENERAL: Well-appearing, well-nourished, and in no acute distress. HEAD: Normocephalic, atraumatic. ENT: Mucous membranes moist. NECK: Supple. CHEST: Clear to auscultation. No respiratory distress. HEART: Regular rate and rhythm. Normal peripheral pulses. ABDOMEN: Soft, mild right-sided discomfort without guarding, nondistended, no CVA tenderness. EXTREMITIES: Normal range of motion. No edema. SKIN: Warm, dry, no rash. NEURO: Alert and oriented x3. PSYCH: Normal mood and affect. Objective Data Vital Signs Vital Signs: Vital Signs - 24 hr 03/04/25 17:31 03/04/25 20:06 03/04/25 23:13 Temperature 97.4 F L 97.6 F 97.8 F Pulse Rate 85 85 80 Respiratory Rate 16 14 12 Blood Pressure 106/71 99/71 L 97/67 L Pulse Oximetry 99 100 100 Oxygen Delivery Room Air 03/05/25 00:15 03/05/25 01:20 03/05/25 01:31 Temperature 97.8 F Pulse Rate 81 74 74 Respiratory Rate 18 Blood Pressure 105/66 91/54 L Pulse Oximetry 99 Oxygen Delivery 03/05/25 05:32 Temperature 98.0 F Pulse Rate 68 Respiratory Rate 20 Blood Pressure 96/59 L Pulse Oximetry 98 Oxygen Delivery Intake/Output Intake/Output: Intake & Output 03/02/25 03/03/25 03/04/25 03/05/25 23:59 23:59 23:59 23:59 Intake Total 1050 925 Balance 1050 925 Meds/Results Medications: Active Medications Generic Name Dose Route Start Last Admin Trade Name Freq PRN Reason Stop Dose Admin Acetaminophen 650 mg 03/04/25 21:18 Acetaminophen 325 Mg Tablet PO Q4H PRN Mild Pain (1-3) or Fever Hydrocodone Bitart/Acetaminophen 1 tab 03/04/25 21:18 Hydrocodone/Acetaminophen (*Crx) 5-325 Mg Tablet PO Q4H PRN Pain Rated 4-6 Albuterol 2 puff 03/05/25 00:17 Albuterol Sulfate (*Sp) Aerosol 1 Puff INHALATION Q4HRT PRN shortness of breath or wheezing Atorvastatin Calcium 80 mg 03/05/25 21:00 Atorvastatin 40 Mg Tablet PO QHS ELZA Buspirone HCl 15 mg 03/05/25 09:00 Buspirone Hcl 5 Mg Tablet PO Q12HR ELZA Carvedilol 3.125 mg 03/05/25 00:20 03/05/25 01:31 Carvedilol 3.125 Mg Tablet PO Not Given Q12HR ELZA Cyclobenzaprine HCl 10 mg 03/05/25 00:17 Cyclobenzaprine Hcl 10 Mg Tablet PO TID PRN muscle spasm Dextrose 12.5 gm 03/04/25 21:25 Dextrose 50% 25 Gm/50 Ml Syringe IV PUSH PRN PRN Hypoglycemia Protocol Diphenhydramine HCl 25 mg 03/05/25 00:17 Diphenhydramine Hcl Cap 25 Mg Capsule PO TID PRN itching Doxepin HCl 25 mg 03/05/25 00:20 03/05/25 01:33 Doxepin Hcl 25 Mg Capsule PO 25 mg QHS ELZA Administration Duloxetine HCl 30 mg 03/05/25 00:20 03/05/25 01:33 Duloxetine Hcl 30 Mg Capsule.Dr PO 30 mg BID ELZA Administration Ferrous Sulfate 325 mg 03/05/25 09:00 Ferrous Sulfate [address] PO DAILY [facility] Fluticasone Propionate 1 spray 03/05/25 09:00 Fluticasone Propionate 0.05% Na Spr 16 Gm Btl (*Bkc) NASAL DAILY [facility] Folic Acid 1 mg 03/05/25 09:00 Folic Acid 1 Mg Tablet PO DAILY [facility] Glucagon 1 mg 03/04/25 21:25 Glucagon For Inj 1 Mg Vial IM PRN PRN Hypoglycemia Protocol Glucose 15 gm 03/04/25 21:25 Glucose Oral Gel 15 Gm Of Glucse In 37.5 Gm Tube PO PRN PRN Hypoglycemia Protocol Hydroxyzine Pamoate 50 mg 03/05/25 00:17 Hydroxyzine Pamoate 25 Mg Capsule PO Q4H PRN Anxiety Ceftriaxone Sodium 1 gm in 50 mls @ 100 mls/hr 03/05/25 21:00 Rocephin 1 Gm/Ns 50 Ml IVPB Q24H ELZA Dextrose 1,000 mls @ 100 mls/hr 03/04/25 21:25 Dextrose 5% 1,000 Ml IVPB PRN PRN Hypoglycemia Protocol Lactated Ringer's 1,000 mls @ 75 mls/hr 03/05/25 07:00 Lr - Lactated Ringers Iv IV CONT .[id number] [facility] Insulin Aspart 4 - 8 units 03/05/25 00:00 03/05/25 06:38 Insulin Aspart (*Bkc) 100 Units/Ml SUB-Q Not Given Q6HR [facility] Protocol Lisinopril 2.5 mg 03/05/25 09:00 Lisinopril 2.5 Mg Tablet PO QAM [facility] Miscellaneous Information 1 each 03/05/25 00:01 Cariprazine [Vraylar] 6 Mg Capsule Is Nonformulary, Can Patient Bring From Home? XX 04/04/25 00:00 CLARIFY [facility] Miscellaneous Information 1 each 03/05/25 00:01 Lidocaine Hcl-Hydrocortisone Ac 3-0.5 % Cream Is Nonformulary, Can Patient Bring From Home XX 04/04/25 00:00 CLARIFY [facility] Morphine Sulfate 4 mg 03/04/25 21:18 03/05/25 00:00 Morphine Sulfate (*Crx) 4 Mg/Ml Inj IV PUSH 4 mg Q2H PRN Administration Pain Rated 7-10 Non-Formulary Medication 6 mg 03/05/25 09:00 Cariprazine [Vraylar] PO 04/04/25 08:59 DAILY [facility] Non-Formulary Medication 1 applic 03/05/25 00:17 Lidocaine Hcl-Hydrocortison Ac RECTAL BID PRN Pain Ondansetron HCl 4 mg 03/04/25 21:18 Ondansetron Inj 4 Mg/2 Ml Vial IV PUSH Q4H PRN Nausea Pantoprazole Sodium 40 mg 03/05/25 09:00 Pantoprazole 40 Mg Tablet PO QAM [facility] Prazosin HCl 2 mg 03/05/25 00:25 03/05/25 01:31 Prazosin Hcl 1 Mg Capsule PO Not Given QHS [facility] Rizatriptan Benzoate 5 mg 03/05/25 00:17 Rizatriptan Benzoate 5 Mg Tablet PO PRN PRN Migraine Headache Topiramate 200 mg 03/05/25 09:00 Topiramate 100 Mg Tablet PO DAILY [facility] Vitamin B Complex 1 cap 03/05/25 09:00 Vitamin B Complex Capsule PO DAILY [facility] Radiology Results: ITS Impressions Abdomen/Pelvis CT 03/04/25 19:12 IMPRESSION: Mild right-sided hydroureteronephrosis secondary to a 5 mm bilobed calculus within the proximal to mid right ureter. Labs Labs: Laboratory Results - last 24 hr 03/04/25 03/04/25 03/04/25 19:50 20:04 21:36 WBC 4.7 RBC 5.03 Hgb 13.3 Hct 41.8 MCV 83.1 MCH 26.4 MCHC 31.8 L RDW 16.5 H Plt Count 57 L MPV 11.7 H Immature Gran % (Auto) 0.2 Neut % (Auto) 73.0 Lymph % (Auto) 19.2 Bibb % (Auto) 5.3 Eos % (Auto) 1.7 Baso % (Auto) 0.6 Lymph # (Auto) 0.91 Bibb # (Auto) 0.3 Eos # (Auto) 0.1 Baso # (Auto) 0.0 Abs Immat Gran (auto) 0.01 Absolute Neuts (auto) 3.5 Absolute Nucleated RBC 0.000 Band Neutrophils % Not Reportable Nucleated RBC % 0.0 Platelet Estimate Decreased % Immature Plt Fraction 8.8 Anisocytosis Ovalocytes 1+ Adalid Cells Schistocytes None seen VBG pH 7.321 VBG pCO2 39.0 L VBG pO2 35.3 VBG HCO3 19.7 L O2 Delivery Device Room air O2 Liters/Min 0.0 FiO2 21 Sodium 140 Potassium 3.1 L Chloride 104 Carbon Dioxide 19 L Anion Gap 17 H BUN 21 H Creatinine 1.19 H Estim Creat Clear Calc 50 Estimated GFR 49 L Glucose 114 H POC Capillary Glucose Hemoglobin A1c Calcium 9.3 Phosphorus Magnesium Total Bilirubin 1.2 AST 47 H ALT 34 Alkaline Phosphatase 87 Total Protein 8.0 Albumin 4.6 Beta-Hydroxybutyrate/Acetoacetate Urine Color Dark yellow Urine Appearance Turbid H Urine pH 5.5 Ur Specific [place] 1.033 Urine Protein 2+ H Urine Glucose (UA) 3+ H Urine Ketones 2+ H Ur Blood (Man) 3+ H Urine Nitrate Negative Urine Bilirubin 2+ H Urine Urobilinogen 1.0 Add Ur Microanalysis Reviewed Leukocyte Esterase Rfl 1+ H Urine RBC >100 H Urine WBC 11-20 H Ur Squamous Epith Cells Moderate Urine Bacteria 1+ H Urine Casts 3-5 03/04/25 03/04/25 03/04/25 21:55 22:04 23:38 WBC RBC Hgb Hct MCV MCH MCHC RDW Plt Count MPV Immature Gran % (Auto) Neut % (Auto) Lymph % (Auto) [place] % (Auto) Eos % (Auto) Baso % (Auto) Lymph # (Auto) Bib[place] # (Auto) Eos # (Auto) Baso # (Auto) Abs Immat Gran (auto) Absolute Neuts (auto) Absolute Nucleated RBC Band Neutrophils % Nucleated RBC % Platelet Estimate % Immature Plt Fraction Anisocytosis Ovalocytes Adalid Cells Schistocytes VBG pH VBG pCO2 VBG pO2 VBG HCO3 O2 Delivery Device O2 Liters/Min FiO2 Sodium Potassium Chloride Carbon Dioxide Anion Gap BUN Creatinine Estim Creat Clear Calc Estimated GFR Glucose POC Capillary Glucose 82 111 H Hemoglobin A1c 5.6 Calcium Phosphorus 3.2 Magnesium 1.8 Total Bilirubin AST ALT Alkaline Phosphatase Total Protein Albumin Beta-Hydroxybutyrate/Acetoacetate 1.93 H Urine Color Urine Appearance Urine pH Ur Specific [place] Urine Protein Urine Glucose (UA) Urine Ketones Ur Blood (Man) Urine Nitrate Urine Bilirubin Urine Urobilinogen Add Ur Microanalysis Leukocyte Esterase Rfl Urine RBC Urine WBC Ur Squamous Epith Cells Urine Bacteria Urine Casts 03/05/25 03/05/25 03/05/25 04:30 05:25 05:26 WBC 2.8 L RBC 4.18 L Hgb 11.1 L Hct 36.8 L MCV 88.0 D MCH 26.6 MCHC 30.2 L RDW 16.5 H Plt Count 49 L MPV 13.3 H Immature Gran % (Auto) 0.4 Neut % (Auto) 67.8 Lymph % (Auto) 25.3 Bibb % (Auto) 4.7 Eos % (Auto) 1.4 Baso % (Auto) 0.4 Lymph # (Auto) 0.70 L [place] # (Auto) 0.1 Eos # (Auto) 0.0 Baso # (Auto) 0.0 Abs Immat Gran (auto) 0.01 Absolute Neuts (auto) 1.9 Absolute Nucleated RBC 0.000 Band Neutrophils % Not Reportable Nucleated RBC % 0.0 Platelet Estimate Decreased % Immature Plt Fraction 7.5 Anisocytosis 1+ Ovalocytes 1+ Adalid Cells 1+ Schistocytes None seen VBG pH 7.353 VBG pCO2 32.8 L VBG pO2 43.3 VBG HCO3 17.8 L O2 Delivery Device Room air O2 Liters/Min Not Reportable FiO2 21 Sodium 140 Potassium 3.4 Chloride 111 H Carbon Dioxide 18 L Anion Gap 11 BUN 18 H Creatinine 0.92 Estim Creat Clear Calc 65 Estimated GFR > 60 Glucose 89 POC Capillary Glucose Hemoglobin A1c Calcium 8.3 L Phosphorus 3.2 Magnesium 1.8 Total Bilirubin AST ALT Alkaline Phosphatase Total Protein Albumin 3.5 Beta-Hydroxybutyrate/Acetoacetate 0.87 H Urine Color Urine Appearance Urine pH Ur Specific [place] Urine Protein Urine Glucose (UA) Urine Ketones Ur Blood (Man) Urine Nitrate Urine Bilirubin Urine Urobilinogen Add Ur Microanalysis Leukocyte Esterase Rfl Urine RBC Urine WBC Ur Squamous Epith Cells Urine Bacteria Urine Casts Quality VTE Prophylaxis VTE prophylaxis: mechanical ordered
[2025-03-05] MEDS: FERROUS SULFATE 325 MG TABLET DR PO (09:07)
[2025-03-05] MEDS: FOLIC ACID 1 MG TABLET PO (09:07)
[2025-03-05] MEDS: busPIRone HCL 5 MG TABLET 15 MG PO ×2 (09:07→20:37)
[2025-03-05] MEDS: VITAMIN B COMPLEX CAPSULE 1 CAP PO (09:07)
[2025-03-05] MEDS: PANTOPRAZOLE 40 MG TABLET PO (09:10)
[2025-03-05] MEDS: TOPIRAMATE 100 MG TABLET 200 MG PO (09:10)
[2025-03-05] MEDS: FLUTICASONE PROPIONATE 0.05% NA SPR 16 GM BTL (*BKC) 1 SPRAY NASAL (09:15)
[2025-03-05 11:34] LABS: Glucose Point of Care 84 mg/dl (65-105)
[2025-03-05 15:20] LABS: Glucose Point of Care 80 mg/dl (65-105)
--- NOTE | 2025-03-05 15:39 | P.PNAN_ITS ---
Anes - Initial Pre Proc Eval Procedure: Operation Date: 03/05/25 13:30 Proposed Procedures p Cystoscopy, Possible Right Retrograde Pyelogram, Right Ureteroscopy, Possible Stone Extraction, Possible Stent Placement, Possible Holmium Laser - Quan Molina MD Date/Time: 03/05/25 15:39 Surgeon: Tigre Tejada MD Pre Op Diagnosis: ureterolithiasis,uti Patient Data Age: 44 Gender: F Height: 1.57 m Weight: 77.3 kg Last Vital Signs Temp 36.6 C 03/05/25 15:00 Pulse 73 03/05/25 15:00 Resp 16 03/05/25 15:00 BP 99/64 L 03/05/25 15:00 Pulse Ox 100 03/05/25 15:00 O2 Del Method Room Air 03/05/25 15:00 Allergies Allergy/AdvReac Type Severity Reaction Status Date / Time sunflower oil Allergy Intermediate Hives Verified 03/04/25 23:42 sumatriptan (From Imitrex) AdvReac Intermediate Muscle Verified 03/04/25 23:42 Spasms Home Medications ?Medication ?Instructions ?Recorded ?Confirmed ?Type glucagon 3 mg/actuation nasal 3 mg intranasal ONCE PRN 07/06/21 03/04/25 Rx spray (Baqsimi) hypoglycemia #1 ea duloxetine 30 mg capsule,delayed 30 mg PO BID #180 caps 09/22/21 03/04/25 Rx release OneTouch Verio test strips (blood #100 ea 05/29/22 03/04/25 Rx sugar diagnostic) diphenhydramine HCl 25 mg capsule 25 mg PO TID PRN itching 06/01/22 03/04/25 History (Benadryl) buspirone 15 mg tablet 15 mg PO BID 10/25/22 03/04/25 History pen needle, diabetic 32 gauge x #300 ea 02/13/23 03/04/25 Rx (BD Ultra-Fine Shantelle Pen Needle) hydroxyzine pamoate 25 mg capsule 50 mg PO Q4H PRN Anxiety 07/25/23 03/04/25 History (Vistaril) prazosin 2 mg capsule 2 mg PO QHS 01/27/24 03/04/25 History albuterol sulfate 90 mcg/actuation 1 puff inhalation Q4H PRN 04/06/24 03/04/25 Rx aerosol inhaler shortness of breath or wheezing #6.7 grams blood-glucose sensor (Dexcom G7 #9 ea 06/04/24 03/04/25 Rx Sensor device) cholecalciferol (vitamin D3) 50 50 mcg PO DAILY 07/24/24 03/04/25 History mcg (2,000 unit) capsule (Vitamin D3) ferrous sulfate 325 mg (65 mg 325 mg PO DAILY 07/24/24 03/04/25 History iron) tablet lidocaine 3 %-hydrocortisone 0.5 % 1 applic RECTAL BID PRN Pain 07/24/24 03/04/25 History rectal cream vitamin B complex 1 tablet PO DAILY 07/24/24 03/04/25 History doxepin 10 mg capsule 25 mg PO QHS 08/13/24 03/04/25 History cariprazine 6 mg capsule (Vraylar) 6 mg PO DAILY 09/21/24 03/04/25 History dexlansoprazole 60 mg 60 mg PO DAILY 1 month #30 caps 09/24/24 03/04/25 Rx capsule,biphase delayed release carvedilol 3.125 mg tablet 3.125 mg PO Q12H #180 tabs 10/20/24 03/04/25 Rx insulin regular hum U-500 conc 500 See Rx Instructions .Route 10/20/24 03/04/25 Rx unit/mL(3 mL) subcut pen (Humulin .COMPLEX #39 mL R U-500 (Conc) Insulin Kwikpen) cyclobenzaprine 10 mg tablet 10 mg PO TID PRN muscle spasm #60 11/11/24 03/04/25 Rx tabs tirzepatide 10 mg/0.5 mL 10 mg (0.5 mL) subcut WEEKLY #6 mL 11/11/24 03/04/25 Rx subcutaneous pen injector (Mounjaro) rizatriptan 5 mg tablet See Rx Instructions PO .COMPLEX 11/20/24 03/04/25 Rx PRN Migraine Headache #10 tabs atorvastatin 80 mg tablet 80 mg PO QHS #90 tabs 12/21/24 03/04/25 Rx folic acid 1 mg tablet 1 mg PO DAILY #90 tabs 12/21/24 03/04/25 Rx empagliflozin 25 mg tablet 25 mg PO DAILY #90 tabs 12/31/24 03/04/25 Rx (Jardiance) lisinopril 2.5 mg tablet See Rx Instructions .Route 02/01/25 03/04/25 Rx .COMPLEX #90 tabs pantoprazole 40 mg tablet,delayed See Rx Instructions .Route 02/01/25 03/04/25 Rx release .COMPLEX #90 tabs topiramate 200 mg tablet See Rx Instructions .Route 02/01/25 03/04/25 Rx .COMPLEX #90 tabs fluticasone propionate 50 1 spray intranasal DAILY #16 grams 02/25/25 03/04/25 Rx mcg/actuation nasal spray,suspension (Flonase Allergy Relief) Laboratory Tests 03/04/25 03/04/25 03/04/25 19:50 20:04 21:36 WBC 4.7 K/mm3 (4.5-10.0) RBC 5.03 M/mm3 (4.2-5.4) Hgb 13.3 g/dL (12.0-15.0) Hct 41.8 % (37.0-47.0) MCV 83.1 fl (80-100) MCH 26.4 pg (26-34) MCHC 31.8 L g/dl (32-36) RDW 16.5 H % (11.5-14.5) Plt Count 57 L k/mm3 (150-375) MPV 11.7 H fl (7.4-10.4) Immature Gran % (Auto) 0.2 % (0-0.5) Neut % (Auto) 73.0 % (45.5-73.1) Lymph % (Auto) 19.2 % (18.3-44.2) [place] % (Auto) 5.3 % (2.6-8.5) Eos % (Auto) 1.7 % (0-4.4) Baso % (Auto) 0.6 % (0.2-1.2) Lymph # (Auto) 0.91 K/mm3 (0.9-3.2) [place] # (Auto) 0.3 K/mm3 (0.1-0.6) Eos # (Auto) 0.1 K/mm3 (0-0.3) Baso # (Auto) 0.0 K/mm3 (0.0-0.1) Abs Immat Gran (auto) 0.01 K/mm3 (0.00-0.031) Absolute Neuts (auto) 3.5 K/mm3 (1.3-6.7) Absolute Nucleated RBC 0.000 K/mm3 (0.0-0.012) Band Neutrophils % Not Reportable Nucleated RBC % 0.0 % (0.0-0.2) Platelet Estimate Decreased (Adequate) % Immature Plt Fraction 8.8 % (0.9-11.2) Anisocytosis Ovalocytes 1+ [place] Cells Schistocytes None seen VBG pH 7.321 (7.300-7.400) VBG pCO2 39.0 L mmHg (42.0-48.0) VBG pO2 35.3 mmHg (35.0-45.0) VBG HCO3 19.7 L mEq/l (24.0-30.0) O2 Delivery Device Room air O2 Liters/Min 0.0 LPM FiO2 21 % Sodium 140 mmol/L (137-145) Potassium 3.1 L mmol/L (3.4-5.0) Chloride 104 mmol/L (98-107) Carbon Dioxide 19 L mmol/L (22-30) Anion Gap 17 H mmol/L (4-12) BUN 21 H mg/dL (7-17) Creatinine 1.19 H mg/dL (0.7-1.0) Estim Creat Clear Calc 50 ml/min Estimated GFR 49 L (59 - ) Glucose 114 H mg/dL (65-110) POC Capillary Glucose Hemoglobin A1c Calcium 9.3 mg/dL (8.4-10.2) Phosphorus Magnesium Total Bilirubin 1.2 mg/dL (0.2-1.3) AST 47 H U/L (14-36) ALT 34 U/L (6-35) Alkaline Phosphatase 87 U/L (38-126) Total Protein 8.0 g/dL (6.3-8.2) Albumin 4.6 g/dL (3.5-5.1) Beta-Hydroxybutyrate/Acetoacetate Urine Color Dark yellow (Yellow) Urine Appearance Turbid H (Clear) Urine pH 5.5 (5.0-9.0) Ur Specific [place] 1.033 (1.001-1.035) Urine Protein 2+ H mg/dL (Negative) Urine Glucose (UA) 3+ H mg/dL (Negative) Urine Ketones 2+ H mg/dL (Negative) Ur Blood (Man) 3+ H (Negative) Urine Nitrate Negative (Negative) Urine Bilirubin 2+ H (Negative) Urine Urobilinogen 1.0 mg/dL (<2.0) Add Ur Microanalysis Reviewed Leukocyte Esterase Rfl 1+ H KATIE/UL (Negative) Urine RBC >100 H /hpf (0-2) Urine WBC 11-20 H /hpf (0-3) Ur Squamous Epith Cells Moderate /hpf (Few) Urine Bacteria 1+ H /hpf Urine Casts 3-5 03/04/25 03/04/25 03/04/25 21:55 22:04 23:38 WBC RBC Hgb Hct MCV MCH MCHC RDW Plt Count MPV Immature Gran % (Auto) Neut % (Auto) Lymph % (Auto) [place] % (Auto) Eos % (Auto) Baso % (Auto) Lymph # (Auto) [place] # (Auto) Eos # (Auto) Baso # (Auto) Abs Immat Gran (auto) Absolute Neuts (auto) Absolute Nucleated RBC Band Neutrophils % Nucleated RBC % Platelet Estimate % Immature Plt Fraction Anisocytosis Ovalocytes [place]al[place] Cells Schistocytes VBG pH VBG pCO2 VBG pO2 VBG HCO3 O2 Delivery Device O2 Liters/Min FiO2 Sodium Potassium Chloride Carbon Dioxide Anion Gap BUN Creatinine Estim Creat Clear Calc Estimated GFR Glucose POC Capillary Glucose 82 mg/dl 111 H mg/dl (65-105) (65-105) Hemoglobin A1c 5.6 % (<5.7) Calcium Phosphorus 3.2 mg/dL (2.5-4.5) Magnesium 1.8 mg/dL (1.6-2.3) Total Bilirubin AST ALT Alkaline Phosphatase Total Protein Albumin Beta-Hydroxybutyrate/Acetoacetate 1.93 H mmol/L (0.02-0.27) Urine Color Urine Appearance Urine pH Ur Specific [place] Urine Protein Urine Glucose (UA) Urine Ketones Ur Blood (Man) Urine Nitrate Urine Bilirubin Urine Urobilinogen Add Ur Microanalysis Leukocyte Esterase Rfl Urine RBC Urine WBC Ur Squamous Epith Cells Urine Bacteria Urine Casts 03/05/25 03/05/25 03/05/25 04:30 05: 05:26 WBC 2.8 L K/mm3 (4.5-10.0) RBC 4.18 L M/mm3 (4.2-5.4) Hgb 11.1 L g/dL (12.0-15.0) Hct 36.8 L % (37.0-47.0) MCV 88.0 D fl (80-100) MCH 26.6 pg (26-34) MCHC 30.2 L g/dl (32-36) RDW 16.5 H % (11.5-14.5) Plt Count 49 L k/mm3 (150-375) MPV 13.3 H fl (7.4-10.4) Immature Gran % (Auto) 0.4 % (0-0.5) Neut % (Auto) 67.8 % (45.5-73.1) Lymph % (Auto) 25.3 % (18.3-44.2) [place] % (Auto) 4.7 % (2.6-8.5) Eos % (Auto) 1.4 % (0-4.4) Baso % (Auto) 0.4 % (0.2-1.2) Lymph # (Auto) 0.70 L K/mm3 (0.9-3.2) [place] # (Auto) 0.1 K/mm3 (0.1-0.6) Eos # (Auto) 0.0 K/mm3 (0-0.3) Baso # (Auto) 0.0 K/mm3 (0.0-0.1) Abs Immat Gran (auto) 0.01 K/mm3 (0.00-0.031) Absolute Neuts (auto) 1.9 K/mm3 (1.3-6.7) Absolute Nucleated RBC 0.000 K/mm3 (0.0-0.012) Band Neutrophils % Not Reportable Nucleated RBC % 0.0 % (0.0-0.2) Platelet Estimate Decreased (Adequate) % Immature Plt Fraction 7.5 % (0.9-11.2) Anisocytosis 1+ Ovalocytes 1+ [place] Cells 1+ Schistocytes None seen VBG pH 7.353 (7.300-7.400) VBG pCO2 32.8 L mmHg (42.0-48.0) VBG pO2 43.3 mmHg (35.0-45.0) VBG HCO3 17.8 L mEq/l (24.0-30.0) O2 Delivery Device Room air O2 Liters/Min Not Reportable FiO2 21 % Sodium 140 mmol/L (137-145) Potassium 3.4 mmol/L (3.4-5.0) Chloride 111 H mmol/L (98-107) Carbon Dioxide 18 L mmol/L (22-30) Anion Gap 11 mmol/L (4-12) BUN 18 H mg/dL (7-17) Creatinine 0.92 mg/dL (0.7-1.0) Estim Creat Clear Calc 65 ml/min Estimated GFR > 60 (59 - ) Glucose 89 mg/dL (65-110) POC Capillary Glucose Hemoglobin A1c Calcium 8.3 L mg/dL (8.4-10.2) Phosphorus 3.2 mg/dL (2.5-4.5) Magnesium 1.8 mg/dL (1.6-2.3) Total Bilirubin AST ALT Alkaline Phosphatase Total Protein Albumin 3.5 g/dL (3.5-5.1) Beta-Hydroxybutyrate/Acetoacetate 0.87 H mmol/L (0.02-0.27) Urine Color Urine Appearance Urine pH Ur Specific [place] Urine Protein Urine Glucose (UA) Urine Ketones Ur Blood (Man) Urine Nitrate Urine Bilirubin Urine Urobilinogen Add Ur Microanalysis Leukocyte Esterase Rfl Urine RBC Urine WBC Ur Squamous Epith Cells Urine Bacteria Urine Casts 03/05/25 03/05/25 11:31 15:17 WBC RBC Hgb Hct MCV MCH MCHC RDW Plt Count MPV Immature Gran % (Auto) Neut % (Auto) Lymph % (Auto) [place] % (Auto) Eos % (Auto) Baso % (Auto) Lymph # (Auto) [place] # (Auto) Eos # (Auto) Baso # (Auto) Abs Immat Gran (auto) Absolute Neuts (auto) Absolute Nucleated RBC Band Neutrophils % Nucleated RBC % Platelet Estimate % Immature Plt Fraction Anisocytosis Ovalocytes [place]al[place] Cells Schistocytes VBG pH VBG pCO2 VBG pO2 VBG HCO3 O2 Delivery Device O2 Liters/Min FiO2 Sodium Potassium Chloride Carbon Dioxide Anion Gap BUN Creatinine Estim Creat Clear Calc Estimated GFR Glucose POC Capillary Glucose 84 mg/dl 80 mg/dl (65-105) (65-105) Hemoglobin A1c Calcium Phosphorus Magnesium Total Bilirubin AST ALT Alkaline Phosphatase Total Protein Albumin Beta-Hydroxybutyrate/Acetoacetate Urine Color Urine Appearance Urine pH Ur Specific [place] Urine Protein Urine Glucose (UA) Urine Ketones Ur Blood (Man) Urine Nitrate Urine Bilirubin Urine Urobilinogen Add Ur Microanalysis Leukocyte Esterase Rfl Urine RBC Urine WBC Ur Squamous Epith Cells Urine Bacteria Urine Casts Patient hx anesthesia problems: none Family hx anesthesia problems: none Results Review: All pre-operative results and documents have been reviewed as part of the pre- operative evaluation. [facility] Past Medical History Medical History Type 2 diabetes mellitus (~2006) Rectal bleeding Left knee pain Medial meniscus tear Chronic nausea Gastroesophageal reflux disease Esophageal varices determined by endoscopy Irritable bowel syndrome with alternating bowel habits Portal hypertensive gastropathy Cirrhosis Bipolar 2 disorder Alopecia Cat scratch of forearm Body mass index (BMI) 35 or more (05/05/19) Vaginal yeast infection Type 2 diabetes mellitus with hyperglycemia Benign essential hypertension Abnormal vaginal bleeding Abnormal CT of brain Nausea & vomiting Hx of renal calculi (~07/2021) Portal hypertension (~07/2021) Chronic GERD Ganglion cyst Vitamin D deficiency Dyslipidemia BMI 40.0-44.9, adult Anxiety and depression HTN (hypertension) Type 2 diabetes mellitus with other circulatory complications (~2006) Avulsion fracture of right calcaneus with delayed healing (~2016) Other and unspecified hyperlipidemia (~2018) Hypertension complicating diabetes (~2013) Iron deficiency anemia due to chronic blood loss (~2016) 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: [facility] Microalbuminuria due to type 2 diabetes mellitus (~2017) Migraine without aura, not intractable, with status migrainosus (~1992) meds tried: midrin (helpful), imitrex (no help), zomig, topamax (helpful) Recurrent major depressive disorder in partial remission (~1992) Renal cyst, acquired (~2011) Hyperlipidemia associated with type 2 diabetes mellitus (~2018) Unspecified cirrhosis of liver (~2014) [facility] Surgical History Surgical History History of urethral stent (~07/2021) H/O: hysterectomy H/O left knee surgery Status post right foot surgery (~2017) History of cholecystectomy (~2017) Family History Family History Father Hypertension Cerebrovascular accident Family history of diabetes mellitus in first degree relative Diabetes mellitus Mother Hypertension Other Family history of Alzheimer's disease Family history of cardiovascular disease Family history of chronic obstructive pulmonary disease Family history of congestive heart failure Family history of hearing loss Family history of migraine headaches Family history of obesity Social History Social History Social History: , no children. Unemployed. Caffeine-rarely Smoking packs per day: 1 Smoking cigarettes per day: 20.0 Years smoked: 13 Smoking pack-years: 13.00 Smoking status: Current every day smoker Tobacco type: e-cigarettes/vaping Smoking end date: 10/14/06 Alcohol intake: former Drinks per week: 1 Substance use: never Substance use type: does not use Last use: Quit 1996 Do You Feel Safe in your Home?: Yes Lack of Transportation: No Lack of Food: Never True Current Housing: I Have Housing Concerned About Future Housing: No Difficulty Paying Gas/Electric Bills: No Difficulty Paying for Meds: No Currently Unemployed: No Education: Associate Degree Difficulty w/ Childcare or Family Care: No Living arrangements: with family Additional living arrangements comments: lives with soon to be x- Occupation/Education: occupation Gender identity (if verbalized by the patient): Female Spiritual care concerns: No Agree to blood products: Yes Anes - Eval Final PreProcedure Day of Procedure 03/05/25 15:39 Patient weight: obese Heart: regular rate and rhythm Lungs: clear to auscultation Airway: Mallampati scale class II Neurological: alert and oriented Last oral intake: >/= 8 hours ASA classification: IV Emergent: no Anesthetic plan: proceed Anesthesia type and monitoring: general LMA and standard monitoring Results Review: All pre-operative results and documents have been reviewed as part of the pre- operative evaluation. Informed Consent: The patient's anesthetic plan and its attendant risks and benefits were discussed with the patient/family/POA. Questions were solicited and answers p rovided to the satisfaction of the patient/family/POA.
[2025-03-05] MEDS: LACTATED RINGERS 1,000 ML 30 ML IV CONT (15:48)
--- NOTE | 2025-03-05 16:20 | P.OP_ITS ---
Procedure Note - Detailed Date of Procedure 03/05/25 Pre-op Diagnosis Right ureteral stone, right kidney stone Post-op Diagnosis Same Procedure Performed Cystoscopy with right ureteroscopy and stone extraction Surgeon Quan Molina MD Anesthesia General Description of Procedure Patient is brought to the operative suite where she has prepped draped in routine sterile fashion while in dorsal lithotomy position after the uneventful induction of a general LMA anesthetic. Cystoscopy was undertaken with a 19 F rigid cystoscope. Bladder neck and urethra endoscopically normal. Bladder mucosa is normal. There is no intravesical foreign body or neoplasm. She has a single orthotopic ureteral orifice bilaterally. A 0.035 in glidewire was advanced into her right renal pelvis under fluoroscopy. I dilated the distal ureter with an 8 F 10 F dilator. Ureteroscopy was 1st undertaken with the semi- rigid ureteral scope to her iliac vessels. There was no identifiable stone. I exchanged that scope for a 7.5 F flexible ureteral scope. A 5 mm stone was identified in the mid ureter. This stone was oblong in shape. Using a 1.9 F disposable stone basket I was able mid Danielle 8 the stone in a longitudinal fashion and extracted very easily without need for lithotripsy. This is a simple extraction and there was minimal ureteral edema to start. In light of that I opted not to place ureteral stent. Scopes wires removed she was taken to the recovery room in good condition. Patient could be discharged tomorrow morning from our standpoint. She should follow-up in 2-3 weeks to arrange for a renal ultrasound. Drains No Pathology None sent Complications No immediate complications Condition Stable Disposition PACU
[2025-03-05 16:30] LABS: Glucose Point of Care 79 mg/dl (65-105)
[2025-03-05] MEDS: HYDROcodone/acetaminophen (*CRX) 5-325 MG TABLET 1 TAB PO (17:33)
[2025-03-05] MEDS: CYCLOBENZAPRINE HCL 10 MG TABLET PO (17:33)
[2025-03-05] MEDS: LACTATED RINGERS 1,000 ML 75 ML IV CONT (17:39)
[2025-03-05 20:10] LABS: Glucose Point of Care 189 mg/dl (65-105)
[2025-03-05] MEDS: PRAZOSIN HCL 1 MG CAPSULE 2 MG PO (20:37)
[2025-03-05] MEDS: MORPHINE SULFATE (*CRX) 4 MG/ML INJ IV PUSH ×2 (20:37)
[2025-03-05] MEDS: ATORVASTATIN 40 MG TABLET 80 MG PO (20:37)
[2025-03-05] MEDS: carvediloL 3.125 MG TABLET PO (20:38)
[2025-03-06 00:40] VITALS: BP 85/51; PULSE 71; RESP 16; TEMP 36.5; O2SAT 97
[2025-03-06 05:21] LABS: Basophils Percent Auto 0.5 % (0.2-1.2); Eosinophils Percent Auto 1.9 % (0-4.4); Hematocrit 32.3 % (37.0-47.0); Hemoglobin 10.1 g/dL (12.0-15.0); Immature Platelet Fraction Pct 6.9 % (0.9-11.2); Lymphocytes Absolute Auto 0.63 K/mm3 (0.9-3.2); Lymphocytes Percent Auto 30.1 % (18.3-44.2); Mean Corpuscular HGB Conc 31.3 g/dl (32-36); Mean Corpuscular Hemoglobin 26.5 pg (26-34); Mean Corpuscular Volume 84.8 fl (80-100); Mean Platelet Volume 12.3 fl (7.4-10.4); Monocytes Absolute Auto 0.1 K/mm3 (0.1-0.6); Monocytes Percent Auto 5.7 % (2.6-8.5); Neutrophils Absolute Auto 1.3 K/mm3 (1.3-6.7); Neutrophils Percent Auto 61.8 % (45.5-73.1); Red Blood Count 3.81 M/mm3 (4.2-5.4); Red Cell Distribution Width 16.5 % (11.5-14.5); White Blood Count 2.1 K/mm3 (4.5-10.0)
[2025-03-06 05:37] LABS: Albumin Level 3.3 g/dL (3.5-5.1); Anion Gap 7 mmol/L (4-12); Blood Urea Nitrogen 13 mg/dL (7-17); Calcium 8.5 mg/dL (8.4-10.2); Carbon Dioxide 23 mmol/L (22-30); Chloride 111 mmol/L (98-107); Estimated CRCL calculation 63 ml/min; Estimated Glomerular Filt Rate > 60; Glucose 121 mg/dL (65-110); Magnesium 1.7 mg/dL (1.6-2.3); Phosphorus 2.8 mg/dL (2.5-4.5); Potassium 3.3 mmol/L (3.4-5.0); Sodium 141 mmol/L (137-145)
[2025-03-06 05:40] LABS: Platelet Count Result 42 k/mm3 (150-375)
[2025-03-06 05:41] VITALS: BP 90/56; PULSE 72; RESP 16; TEMP 36.4; O2SAT 100
[2025-03-06 05:42] LABS: Anisocytosis 1+; Band Neutrophils Percent 0 % (0-6); Ovalocytes 1+; Platelet Estimate Decreased (Adequate); Schistocytes None Seen
[2025-03-06 07:54] LABS: Glucose Point of Care 122 mg/dl (65-105)
[2025-03-06 08:00] VITALS: BP 99/61; PULSE 80; RESP 12; TEMP 36.1; O2SAT 100
[2025-03-06] MEDS: FOLIC ACID 1 MG TABLET PO (08:55)
[2025-03-06] MEDS: VITAMIN B COMPLEX CAPSULE 1 CAP PO (08:55)
[2025-03-06] MEDS: FERROUS SULFATE 325 MG TABLET DR PO (08:55)
[2025-03-06] MEDS: lisinopriL 2.5 MG TABLET PO (08:55)
[2025-03-06] MEDS: carvediloL 3.125 MG TABLET PO (08:55)
[2025-03-06] MEDS: PANTOPRAZOLE 40 MG TABLET PO (08:55)
[2025-03-06] MEDS: DULoxetine HCL 30 MG CAPSULE.DR PO (08:55)
[2025-03-06] MEDS: busPIRone HCL 5 MG TABLET 15 MG PO (08:55)
[2025-03-06] MEDS: TOPIRAMATE 100 MG TABLET 200 MG PO (08:56)
[2025-03-06] MEDS: FLUTICASONE PROPIONATE 0.05% NA SPR 16 GM BTL (*BKC) 1 SPRAY NASAL (08:56)
--- NOTE | 2025-03-06 11:48 | P.DS_ITS ---
DS: Admitting Diagnosis Discharge Date 03/06/2025 Admitting Diagnosis Ureteral stone with hydronephrosis DS: Discharge Diagnosis Discharge Diagnosis (1) Ureteral stone with hydronephrosis: Code(s): N13.2 - Hydronephrosis with renal and ureteral calculous obstruction Status: Acute (2) Abnormal urinalysis: Code(s): R82.90 - Unspecified abnormal findings in urine Status: Acute (3) Type 2 diabetes mellitus: Onset Date: ~2006 Qualifiers: Chronic kidney disease stage: stage 2 (GFR 60-89) Diabetes mellitus complication detail: with chronic kidney disease Diabetes mellitus complication status: with kidney complications Diabetes mellitus joint terminal attack controller insulin use: with joint terminal attack controller use Qualified Code(s): E11.22 - Type 2 diabetes mellitus with diabetic chronic kidney disease; N18.2 - Chronic kidney disease, stage 2 (mild); 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 Code(s): E11.9 - Type 2 diabetes mellitus without complications Status: Acute (4) Metabolic acidosis due to diabetes mellitus: Code(s): E11.10 - Type 2 diabetes mellitus with ketoacidosis without coma Status: Acute (5) YANIQUE (acute kidney injury): Code(s): N17.9 - Acute kidney failure, unspecified Status: Acute (6) Hypokalemia: Code(s): E87.6 - Hypokalemia Status: Acute (7) Bipolar 2 disorder: Code(s): F31.81 - Bipolar II disorder Status: Acute (8) Thrombocytopenia: Code(s): D69.6 - Thrombocytopenia, unspecified Status: Acute DS: Summary Hospital Course Reason for hospitalization: Right flank pain, obstructing mid right ureteral stone Hospital Course: This is a 44 year old female patient with significant medical history as listed below who is admitted to the hospital with obstructing right ureteral stone and abnormal UA as well as mild findings of YANIQUE. Pain was treated with morphine in ER. Urology consulted and Dr. Avalos states to keep patient NPO for stent tomorrow. Rocephin was given in ER and will be continued pending urine culture. No prior positive cultures on file to assess resistance patterns. Patient states she has had some nausea recently but no vomiting. She reports a past history of esophageal varices and cirrhosis related to LOVE. She reports an admission back in September for hematemesis. She has a history of thrombocytopenia related to this condition as well. No signs or symptoms of active bleeding. Patient reports prior kidney stones requiring interventions. Labs show decreased potassium, thrombocytopenia, mild metabolic acidosis with slightly elevated anion gap but normal glucose. Added beta-hydroxybutyrate which is mildly elevated. Minor YANIQUE noted with an estimated GFR 49. Patient on IV fluids due to NPO status and YANIQUE. Careful to avoid significant fluid overload due to liver status. Urology consulted regarding calculus of kidney. KUB was ordered which showed possible right nephrolithiasis, but no definitive stones identified in the ureters. Dr. Molina of urology okay with proceeding with cystoscopy ureteroscopy and stone extraction with possible laser lithotripsy, RPG and stent placement. This procedure was performed on 03/05/2025. During this procedure a 5 mm stone was identified in the mid ureter, this was extracted without the need for l ithotripsy. Ureteral stent was not placed. Overall patient tolerated this procedure well and was cleared for discharge from Urology standpoint. During a.m. of 03/06, patient complained of some mild right-sided lower abdominal discomfort, but overall felt significant improvement in her symptoms. She has been given appropriate outpatient followup instructions with Dr. Molina of urology but otherwise has no complaints or concerns at this time and is hemodynamically stable for discharge at this time. Status at Discharge Functional status at discharge: independent ambulation Overall status at discharge: patient is back to baseline Time Spent with Patient Time attestation: Total time spent providing and/or coordinating discharge services: 35 Exam Narrative: GENERAL: Well-appearing, well-nourished, and in no acute distress. HEAD: Normocephalic, atraumatic. ENT: Mucous membranes moist. NECK: Supple. CHEST: Clear to auscultation. No respiratory distress. HEART: Regular rate and rhythm. Normal peripheral pulses. ABDOMEN: Soft, mild right-sided discomfort without guarding, nondistended, no CVA tenderness. EXTREMITIES: Normal range of motion. No edema. SKIN: Warm, dry, no rash. NEURO: Alert and oriented x3. PSYCH: Normal mood and affect. DS: Data Data Completed and Pending Pending studies at discharge: Pending at discharge 03/05/25 16:10 Surgical [PTH] Routine Labs on day of discharge: Labs from last 24 hours 03/06/25 03/06/25 03/05/25 07:50 04:58 20:04 WBC 2.1 L RBC 3.81 L Hgb 10.1 L Hct 32.3 L MCV 84.8 MCH 26.5 MCHC 31.3 L RDW 16.5 H Plt Count 42 L MPV 12.3 H Immature Gran % (Auto) 0.0 Neut % (Auto) 61.8 Lymph % (Auto) 30.1 Bailey % (Auto) 5.7 Eos % (Auto) 1.9 Baso % (Auto) 0.5 Lymph # (Auto) 0.63 L Bailey # (Auto) 0.1 Eos # (Auto) 0.0 Baso # (Auto) 0.0 Abs Immat Gran (auto) 0.00 Absolute Neuts (auto) 1.3 Absolute Nucleated RBC 0.000 Band Neutrophils % 0 Nucleated RBC % 0.0 Platelet Estimate Decreased % Immature Plt Fraction 6.9 Anisocytosis 1+ Ovalocytes 1+ Schistocytes None seen Sodium 141 Potassium 3.3 L Chloride 111 H Carbon Dioxide 23 Anion Gap 7 BUN 13 D Creatinine 0.95 Estim Creat Clear Calc 63 Estimated GFR > 60 Glucose 121 H POC Capillary Glucose 122 H 189 H Calcium 8.5 Phosphorus 2.8 Magnesium 1.7 Albumin 3.3 L 03/05/25 03/05/25 16:28 15:17 WBC RBC Hgb Hct MCV MCH MCHC RDW Plt Count MPV Immature Gran % (Auto) Neut % (Auto) Lymph % (Auto) Bailey % (Auto) Eos % (Auto) Baso % (Auto) Lymph # (Auto) Bailey # (Auto) Eos # (Auto) Baso # (Auto) Abs Immat Gran (auto) Absolute Neuts (auto) Absolute Nucleated RBC Band Neutrophils % Nucleated RBC % Platelet Estimate % Immature Plt Fraction Anisocytosis Ovalocytes Schistocytes Sodium Potassium Chloride Carbon Dioxide Anion Gap BUN Creatinine Estim Creat Clear Calc Estimated GFR Glucose POC Capillary Glucose 79 80 Calcium Phosphorus Magnesium Albumin Discharge Plan Discharge Attending physician on discharge: Tigre Tejada Consulting providers: Asher Bryant; Zen Avalos Discharging Clinician: Asher Bryant Anticipated Discharge Date/Time: 03/06/25 11:21 Patient Disposition: Home Activity: as tolerated Diet: as tolerated Discharge Instructions: Take all medications as prescribed even if feeling better Eat well balanced meals and stay hydrated Keep active to remain strong Trend urine output If you should experience any chest pain, shortness of breath, temps >100.4 or any other worrisome symptoms please follow up with your PCP come back to the hospital. You will likely continue to experience some minor abdominal pain and/or blood in the urine. This can be expected. Follow up with your primary in 2-3 weeks Also follow-up with Urology in 2-3 weeks for a renal ultrasound. It has been a pleasure taking care of you thank you for using our services Patient Instructions: Antibiotic Form Patient Language: Moroccan Stand Alone Forms: General Discharge Information Follow-up/Referrals: Karin Hoyt MD [Primary Care Provider] - Quan Molina MD [Physician] - Discharge Medications: Continued fluticasone propionate [Flonase Allergy Relief] 50 mcg/actuation spray ,suspension 1 spray intranasal DAILY Qty: 16 0RF Rx Instructions: administer into each nostril (DME) OneTouch Verio test strips Strip See Rx Instructions .Route Qty: 100 11RF Rx Instructions: Monitor glucose 3-4 times a day prazosin 2 mg capsule 2 mg PO QHS doxepin 10 mg capsule 25 mg PO QHS (DME) Dexcom G7 Sensor Device See Rx Instructions .ROUTE .MEDSUPPLY Qty: 9 3RF Rx Instructions: Use to monitor glcuose Vraylar 6 mg capsule 6 mg PO DAILY Baqsimi 3 mg/actuation spray,non-aerosol 3 mg intranasal ONCE PRN (Reason: hypoglycemia) Qty: 1 0RF Rx Instructions: as a single dose buspirone 15 mg tablet 15 mg PO BID Humulin R U-500 (Conc) Kwikpen 500 unit/mL (3 mL) insulin pen See Rx Instructions .ROUTE .COMPLEX Qty: 39 0RF Dose Instruction: INJECT 70 UNITS SUBCUTANEOUSLY THREE TIMES DAILY WITH MEALS Rx Instructions: Sliding scale BID-TID carvedilol 3.125 mg tablet 3.125 mg PO Q12H Qty: 180 1RF Rx Instructions: must administer with a meal/food diphenhydramine HCl [Benadryl] 25 mg Capsule 25 mg PO TID PRN (Reason: itching) lidocaine HCl-hydrocortison ac 3-0.5 % cream 1 applic RECTAL BID PRN (Reason: Pain) ferrous sulfate 325 mg (65 mg iron) Tablet 325 mg PO DAILY vitamin B complex Tablet 1 tablet PO DAILY cholecalciferol (vitamin D3) [Vitamin D3] 50 mcg (2,000 unit) Capsule 50 mcg PO DAILY duloxetine 30 mg capsule,delayed release(DR/EC) 30 mg PO BID Qty: 180 1RF (DME) pen needle, diabetic [BD Ultra-Fine Shantelle Pen Needle] 32 gauge x 5/32 needle See Rx Instructions .ROUTE .MEDSUPPLY Qty: 300 1RF Rx Instructions: three times daily hydroxyzine pamoate [Vistaril] 25 mg capsule 50 mg PO Q4H PRN (Reason: Anxiety) albuterol sulfate 90 mcg/actuation HFA aerosol inhaler 1 puff INHALATION Q4H PRN (Reason: shortness of breath or wheezing) Qty: 6.7 1RF dexlansoprazole 60 mg capsule,biphase delayed releas 60 mg PO DAILY 30 Days Qty: 30 12RF Mounjaro 10 mg/0.5 mL pen injector 10 mg subcut WEEKLY Qty: 6 1RF cyclobenzaprine 10 mg tablet 10 mg PO TID PRN (Reason: muscle spasm) Qty: 60 1RF rizatriptan 5 mg tablet See Rx Instructions PO .COMPLEX PRN (Reason: Migraine Headache) Qty: 10 5RF Rx Instructions: take 1 tab at onset of headache; if no relief may repeat 1 tab after at least 2 hrs; max = 3 tabs/24 hr PO folic acid 1 mg tablet 1 mg PO DAILY Qty: 90 1RF atorvastatin 80 mg tablet 80 mg PO QHS Qty: 90 1RF Jardiance 25 mg tablet 25 mg PO DAILY Qty: 90 1RF lisinopril 2.5 mg tablet See Rx Instructions .ROUTE .COMPLEX Qty: 90 0RF Dose Instruction: Take 1 tablet by mouth once daily Rx Instructions: Take 1 tablet by mouth once daily pantoprazole 40 mg tablet,delayed release (DR/EC) See Rx Instructions .ROUTE .COMPLEX Qty: 90 1RF Dose Instruction: TAKE 1 TABLET BY MOUTH IN THE MORNING Rx Instructions: TAKE 1 TABLET BY MOUTH IN THE MORNING topiramate 200 mg tablet See Rx Instructions .ROUTE .COMPLEX Qty: 90 1RF Dose Instruction: Take 1 tablet by mouth once daily Rx Instructions: Take 1 tablet by mouth once daily Date of admission: 05/22/25 21:18 Primary Care Provider: Karin Hoyt Admitting Provider: Tigre Tejada Attending physician on admission: Tigre Tejada Condition: Stable Quality VTE Prophylaxis VTE prophylaxis: mechanical ordered
[2025-03-06 12:01] LABS: Glucose Point of Care 132 mg/dl (65-105)
[2025-03-06] MEDS: LACTATED RINGERS 1,000 ML 75 ML IV CONT (12:05)
== END 2025-03-06 12:45 | disposition home or self-care (01) ==
LOC: ANHED 21:23 → ANH3MEDSUR 22:16
PROVIDERS: Nurse Practitioner; Physician Assistant; Urology; Admitting Provider Family Medicine; Emergency Provider Emergency Medicine; PCP Family Medicine; Visit Provider Family Medicine
PROC: (CPT 52352; principal; 2025-03-05 13:30)
DX: N13.2 Hydronephrosis with renal and ureteral calculous obstruction (principal); R82.90 Unspecified abnormal findings in urine; N17.9 Acute kidney failure, unspecified; E11.22 Type 2 diabetes mellitus with diabetic chronic kidney disease; I12.9 Hypertensive chronic kidney disease with stage 1 through stage 4 chronic kidney disease, or unspecified chronic kidney disease; N18.2 Chronic kidney disease, stage 2 (mild); E11.59 Type 2 diabetes mellitus with other circulatory complications; E11.10 Type 2 diabetes mellitus with ketoacidosis without coma; E11.69 Type 2 diabetes mellitus with other specified complication; E78.5 Hyperlipidemia, unspecified; F31.81 Bipolar II disorder; K75.81 Nonalcoholic steatohepatitis (NASH); K76.6 Portal hypertension; E87.6 Hypokalemia; D69.6 Thrombocytopenia, unspecified; F17.290 Nicotine dependence, other tobacco product, uncomplicated; E66.9 Obesity, unspecified; Z68.31 Body mass index [BMI] 31.0-31.9, adult; Z79.4 Long term (current) use of insulin; Z79.51 Long term (current) use of inhaled steroids; Z79.84 Long term (current) use of oral hypoglycemic drugs; Z79.899 Other long term (current) drug therapy
CPT/HCPCS: 52352; 36415; 74018; 74176; 80053; 80069; 81001; 82010; 82365; 82803; 82948; 83036; 83735; 84100; 85025; 85055; 88300; 96360; 96361; 96365; 96366; 96367; 96375; 96376; 99199; 99285; A9270; C1769; C1894; G0378; G0379; J0696; J2003; J2270; J2704; J3480; J7030; J7040; J7120; Q9966

== ENCOUNTER 2025-04-07 19:20 | Emergency (ER) | payer OTHER, SELFPAY ==
[2025-04-07] VITALS (17 sets, daily range): BP systolic 88–103; BP diastolic 65–77; PULSE 80–91; RESP 16; TEMP 36.4; O2SAT 98–100
--- NOTE | ~2025-04-07 | CT_ITS ---
CTA brain carotid Ordering provider: Bartolome Gómez MD History: . Headache and persistent vertigo . Comparison: None. Technique: CT angiogram head and neck was performed following timed intravenous injection of contrast . Thin slice axial images and reformatted coronal images were obtained. Three dimensional reformatted images of the brain were also obtained using a Vitrea workstation. FINDINGS: HEAD: --ANTERIOR AND MIDDLE CEREBRAL ARTERIES AND BRANCHES: Normal caliber and contour. --INTERNAL CAROTID ARTERIES: Mild atheromatous disease but no significant stenosis. No occlusion. --BASILAR ARTERY AND BRANCHES: Mild atheromatous disease but no stenosis or occlusion. --POSTERIOR CEREBRAL ARTERIES: Normal caliber and contour --POSTERIOR COMMUNICATING ARTERIES: Not well visualized likely related to congenital absence or small size. --ANEURYSM: None visualized. --BRAIN: The ventricles are normal in size, shape and position. There is no mass, mass effect or midline shift. There is no abnormal extra-axial fluid collection or intracranial hemorrhage. Visualized paranasal sinuses are clear. The mastoid air cells are well aerated. No acute displaced fractures within the overlying cranium. NECK: --RIGHT CERVICAL CAROTID SYSTEM: Mild atheromatous disease of the carotid bulb and proximal internal carotid artery without significant stenosis. Percent stenosis per NASCET criteria is 0% No carotid d issection. --LEFT CERVICAL CAROTID SYSTEM: Mild atheromatous disease of the carotid bulb and proximal internal c arotid artery without significant stenosis. Percent stenosis per NASCET criteria is 0% No carotid di ssection. --VERTEBRAL ARTERIES: Mild atheromatous disease at the origin of the bilateral vertebral arteries wit hout significant stenosis. --VISUALIZED AORTIC ARCH AND BRANCHING VESSELS: Mild atheromatous disease but no significant stenosis . --SOFT TISSUES: Unremarkable --CERVICAL SPINE: Age advanced degenerative disease with osteophyte formation, disc space narrowing, endplate changes and facet arthropathy. This is most prominent at the levels of C4/C5 and C5/C6. IMPRESSION: Percent stenosis per NASCET criteria is 0% Only mild calcified atheromatous disease. 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 No acute intracranial hemorrhage or suspicious mass effect. Reviewed, dictated and finalized at location A.
--- NOTE | ~2025-04-07 | XR_ITS ---
CHEST RADIOGRAPH, PA AND LATERAL CLINICAL HISTORY: Dizziness . COMPARISON: 10/06/2024 TECHNIQUE: PA and lateral views of the chest. FINDINGS The cardiomediastinal silhouette is unremarkable. The lungs are clear. IMPRESSION: No focal infiltrate or effusion. Reviewed, dictated and finalized at location A.
--- NOTE | 2025-04-07 22:04 | ECG_ITS ---
Test Date: 2025-04-07 22:14:27 Measurements Intervals [place] Rate: 78 P: 27 TX: 148 QRS: 45 QRSD: 82 T: 59 QT: 396 QTc: 452 Interpretive Statements SINUS RHYTHM LOW QRS VOLTAGE IN PRECORDIAL LEADS CANNOT R/O SEPTAL INFARCT, AGE INDETERMINATE BORDERLINE ST-T WAVE ABNORMALITY- DIFFUSE LEADS BASELINE ARTIFACT- I, II, III, AVR, AVL, AVF, V1-V6 ABNORMAL ECG Compared to ECG 10/06/2024 21:32:44 HEART RATE HAS DECREASED Electronically Signed On 04-08-2025 06:08:10 CDT by Everardo Seymour D.O.
--- NOTE | 2025-04-07 22:22 | ED_ITS ---
HPI - General Adult General Chief complaint: Dizziness Stated complaint: dizziness Time Seen by Provider: 04/07/25 22:05 History of Present Illness HPI narrative: 44-year-old female presenting to the emergency department for evaluation for intermittent symptoms of lightheaded dizziness. Patient states he symptoms have been ongoing for the last few weeks. Patient states that she has been having intermittent issues with lightheadedness when she stands up and feels like she is going to pass out. Patient states this morning she woke up and was still lying in bed she was having symptoms dizziness with a spinning sensation. Patient states that the symptoms have been persistent throughout the day. Patient denies any falls or injuries. Patient states symptoms are not worsened with getting up and moving but they are constant. Patient does have prior history of hypotension, acute kidney injury, type 2 diabetes, migraine, bipolar Related Data Home Medications ?Medication ?Instructions ?Recorded ?Confirmed ?Last Taken ?Type diphenhydramine HCl 25 mg capsule 25 mg PO TID PRN itching 06/01/22 03/16/25 03/03/25 History (Benadryl) buspirone 15 mg tablet 15 mg PO BID 10/25/22 03/16/25 03/04/25 History hydroxyzine pamoate 25 mg capsule 50 mg PO Q4H PRN Anxiety 07/25/23 03/16/25 Unknown History (Vistaril) prazosin 2 mg capsule 2 mg PO QHS 01/27/24 03/16/25 03/03/25 History cholecalciferol (vitamin D3) 50 50 mcg PO DAILY 07/24/24 03/16/25 03/04/25 History mcg (2,000 unit) capsule (Vitamin D3) ferrous sulfate 325 mg (65 mg 325 mg PO DAILY 07/24/24 03/16/25 03/04/25 History iron) tablet lidocaine 3 %-hydrocortisone 0.5 % 1 applic RECTAL BID PRN Pain 07/24/24 03/16/25 08/03/24 History rectal cream vitamin B complex 1 tablet PO DAILY 07/24/24 03/16/25 12/07/24 History cariprazine 6 mg capsule (Vraylar) 6 mg PO DAILY 09/21/24 03/16/25 03/04/25 History doxepin 10 mg capsule 25 mg PO DAILY 06/03/25 06/03/25 Unknown History Allergies Allergy/AdvReac Type Severity Reaction Status Date / Time sunflower oil Allergy Intermediate Hives Verified 04/07/25 19:34 sumatriptan (From Imitrex) AdvReac Intermediate Muscle Verified 04/07/25 19:34 Spasms Review of Systems 2 Review of Systems: All systems reviewed & are unremarkable except as noted in HPI and below PMFSH Past Medical History Medical History Type 2 diabetes mellitus (~2006) Rectal bleeding Left knee pain Medial meniscus tear Chronic nausea Gastroesophageal reflux disease Esophageal varices determined by endoscopy Irritable bowel syndrome with alternating bowel habits Portal hypertensive gastropathy Cirrhosis Bipolar 2 disorder Alopecia Cat scratch of forearm Body mass index (BMI) 35 or more (05/05/19) Vaginal yeast infection Type 2 diabetes mellitus with hyperglycemia Benign essential hypertension Abnormal vaginal bleeding Abnormal CT of brain Nausea & vomiting Hx of renal calculi (~07/2021) Portal hypertension (~07/2021) Chronic GERD Ganglion cyst Vitamin D deficiency Dyslipidemia BMI 40.0-44.9, adult Anxiety and depression HTN (hypertension) Type 2 diabetes mellitus with other circulatory complications (~2006) Avulsion fracture of right calcaneus with delayed healing (~2016) Other and unspecified hyperlipidemia (~2018) Hypertension complicating diabetes (~2013) Iron deficiency anemia due to chronic blood loss (~2016) 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: [facility] Microalbuminuria due to type 2 diabetes mellitus (~2017) Migraine without aura, not intractable, with status migrainosus (~1992) meds tried: midrin (helpful), imitrex (no help), zomig, topamax (helpful) Recurrent major depressive disorder in partial remission (~1992) Renal cyst, acquired (~2011) Hyperlipidemia associated with type 2 diabetes mellitus (~2018) Unspecified cirrhosis of liver (~2014) LOVE Surgical History Surgical History History of urethral stent (~07/2021) H/O: hysterectomy H/O left knee surgery Status post right foot surgery (~2017) History of cholecystectomy (~2017) Family History Family History Father Hypertension Cerebrovascular accident Family history of diabetes mellitus in first degree relative Diabetes mellitus Mother Hypertension Other Family history of Alzheimer's disease Family history of cardiovascular disease Family history of chronic obstructive pulmonary disease Family history of congestive heart failure Family history of hearing loss Family history of migraine headaches Family history of obesity Social History Social History Social History: , no children. Unemployed. Caffeine-rarely Smoking packs per day: 1 Smoking cigarettes per day: 20.0 Years smoked: 13 Smoking pack-years: 13.00 Smoking status: Current every day smoker Tobacco type: e-cigarettes/vaping Smoking end date: 10/14/06 Alcohol intake: former Drinks per week: 1 Substance use: never Substance use type: does not use Last use: Quit 1996 Do You Feel Safe in your Home?: Yes Lack of Transportation: No Lack of Food: Never True Current Housing: I Have Housing Concerned About Future Housing: No Difficulty Paying Gas/Electric Bills: No Difficulty Paying for Meds: No Currently Unemployed: No Education: Associate Degree Difficulty w/ Childcare or Family Care: No Living arrangements: with family Additional living arrangements comments: lives with soon to be x- Occupation/Education: occupation Gender identity (if verbalized by the patient): Female Spiritual care concerns: No Agree to blood products: Yes Course Vital Signs Vital signs: Vital Signs Temperature 97.6 F 04/07/25 19:30 Pulse Rate 91 04/07/25 19:30 Respiratory Rate 16 04/07/25 19:30 Blood Pressure 102/73 04/07/25 19:30 Pulse Oximetry 100 04/07/25 19:30 Oxygen Delivery Room Air 04/07/25 19:30 Temperature 97.6 F 04/07/25 19:30 Pulse Rate 87 04/08/25 01:51 Respiratory Rate 16 04/07/25 19:30 Blood Pressure 113/70 04/08/25 01:51 Pulse Oximetry 100 04/08/25 00:00 Oxygen Delivery Room Air 04/07/25 19:30 Medical Decision Making MDM Narrative Medical decision making narrative: 44-year-old female presented emergency department for evaluation for both lightheadedness and dizziness symptoms. Patient is afebrile with no leukocytosis hemoglobin 12.9. Patient has no significant acute abnormalities on her CMP head CT was negative. Patient was orthostatic but this did improve after rehydration. Patient was also treated with meclizine. Patient was able to ambulate without issue. Patient will be provided meclizine for vertigo symptoms and patient was encouraged to increase her water intake to help with her low blood pressure. Low concern for central vertigo since patient's symptoms did improve with meclizine. CTA was negative for acute finding. Patient was also encouraged to have close follow-up with her primary care physician. Differential Diagnosis Differential Diagnosis: Dehydration, orthostatic hypotension, TIA, CVA, central vertigo, peripheral vertigo Vital Signs Vital Signs: Vital Signs Temperature 97.6 F 04/07/25 19:30 Pulse Rate 91 04/07/25 19:30 Respiratory Rate 16 04/07/25 19:30 Blood Pressure 102/73 04/07/25 19:30 Pulse Oximetry 100 04/07/25 19:30 Oxygen Delivery Room Air 04/07/25 19:30 Temperature 97.6 F 04/07/25 19:30 Pulse Rate 87 04/08/25 01:51 Respiratory Rate 16 04/07/25 19:30 Blood Pressure 113/70 04/08/25 01:51 Pulse Oximetry 100 04/08/25 00:00 Oxygen Delivery Room Air 04/07/25 19:30 Lab Data Lab results reviewed: Yes I reviewed the patient's lab results. 04/07/25 22:22 04/07/25 22:22 Labs: Lab Results 04/07/25 Range/Units 22:22 WBC 3.8 L (4.5-10.0) K/mm3 RBC 4.72 (4.2-5.4) M/mm3 Hgb 12.9 (12.0-15.0) g/dL Hct 39.4 (37.0-47.0) % MCV 83.5 (80-100) fl MCH 27.3 (26-34) pg MCHC 32.7 (32-36) g/dl RDW 17.2 H (11.5-14.5) % Plt Count 54 L (150-375) k/mm3 MPV 11.9 H (7.4-10.4) fl Immature Gran % (Auto) 0.0 (0-0.5) % Neut % (Auto) 56.1 (45.5-73.1) % Lymph % (Auto) 35.2 (18.3-44.2) % [facility] % (Auto) 6.1 (2.6-8.5) % Eos % (Auto) 2.1 (0-4.4) % Baso % (Auto) 0.5 (0.2-1.2) % Lymph # (Auto) 1.33 (0.9-3.2) K/mm3 [facility] # (Auto) 0.2 (0.1-0.6) K/mm3 Eos # (Auto) 0.1 (0-0.3) K/mm3 Baso # (Auto) 0.0 (0.0-0.1) K/mm3 Abs Immat Gran (auto) 0.00 (0.00-0.031) K/mm3 Absolute Neuts (auto) 2.1 (1.3-6.7) K/mm3 Absolute Nucleated RBC 0.000 (0.0-0.012) K/mm3 Band Neutrophils % Not Reportable Nucleated RBC % 0.0 (0.0-0.2) % Platelet Estimate Decreased (Adequate) % Immature Plt Fraction 5.9 (0.9-11.2) % Anisocytosis 1+ Ovalocytes 1+ Schistocytes None seen Sodium 141 (137-145) mmol/L Potassium 3.4 (3.4-5.0) mmol/L Chloride 109 H (98-107) mmol/L Carbon Dioxide 19 L (22-30) mmol/L Anion Gap 13 H (4-12) mmol/L BUN 13 (7-17) mg/dL Creatinine 1.08 H (0.7-1.0) mg/dL Estim Creat Clear Calc Not Reportable Estimated GFR 55 L (59 - ) Glucose 107 (65-110) mg/dL Calcium 9.5 (8.4-10.2) mg/dL Total Bilirubin 0.9 (0.2-1.3) mg/dL AST 52 H (14-36) U/L ALT 35 (6-35) U/L Alkaline Phosphatase 60 (38-126) U/L Total Protein 7.1 (6.3-8.2) g/dL Albumin 4.2 (3.5-5.1) g/dL Imaging Data Radiologist's impression: Impressions Chest X-Ray 04/07/25 22:47 IMPRESSION: No focal infiltrate or effusion. Head/Neck CTA 04/07/25 23:38 IMPRESSION: Percent stenosis per NASCET criteria is 0% Only mild calcified atheromatous disease. 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 No acute intracranial hemorrhage or suspicious mass effect. Discharge Plan Discharge Clinical Impression: Vertigo Patient Disposition: Home Condition: Stable Instructions: Antibiotic Form, Vertigo (ED), Lightheadedness (ED) Additional Instructions: Increase your water intake to make ensure you are not dehydrated. Meclizine as needed for vertigo symptoms. Have close follow-up with your primary care physician. If you have any worsening symptoms then please call or return to the emergency department. Patient Language: Setswana Prescriptions: New meclizine 25 mg tablet 25 mg PO BID PRN (Reason: dizziness) 7 Days Qty: 14 0RF No Action fluticasone propionate [Flonase Allergy Relief] 50 mcg/actuation spray,suspension 1 spray intranasal DAILY Qty: 16 0RF Rx Instructions: administer into each nostril (DME) OneTouch Verio test strips Strip See Rx Instructions .Route Qty: 100 11RF Rx Instructions: Monitor glucose 3-4 times a day prazosin 2 mg capsule 2 mg PO QHS doxepin 10 mg capsule 25 mg PO DAILY (DME) Dexcom G7 Sensor Device See Rx Instructions .ROUTE .MEDSUPPLY Qty: 9 3RF Rx Instructions: Use to monitor glcuose Vraylar 6 mg capsule 6 mg PO DAILY Baqsimi 3 mg/actuation spray,non-aerosol 3 mg intranasal ONCE PRN (Reason: hypoglycemia) Qty: 1 0RF Rx Instructions: as a single dose buspirone 15 mg tablet 15 mg PO BID carvedilol 3.125 mg tablet 3.125 mg PO Q12H Qty: 180 1RF Rx Instructions: must administer with a meal/food Mounjaro 12.5 mg/0.5 mL pen injector 12.5 mg subcut WEEKLY Qty: 6 1RF diphenhydramine HCl [Benadryl] 25 mg Capsule 25 mg PO TID PRN (Reason: itching) lidocaine HCl-hydrocortison ac 3-0.5 % cream 1 applic RECTAL BID PRN (Reason: Pain) ferrous sulfate 325 mg (65 mg iron) Tablet 325 mg PO DAILY vitamin B complex Tablet 1 tablet PO DAILY cholecalciferol (vitamin D3) [Vitamin D3] 50 mcg (2,000 unit) Capsule 50 mcg PO DAILY duloxetine 30 mg capsule,delayed release(DR/EC) 30 mg PO BID Qty: 180 1RF (DME) pen needle, diabetic [BD Ultra-Fine Shantelle Pen Needle] 32 gauge x 5/32 needle See Rx Instructions .ROUTE .MEDSUPPLY Qty: 300 1RF Rx Instructions: three times daily hydroxyzine pamoate [Vistaril] 25 mg capsule 50 mg PO Q4H PRN (Reason: Anxiety) albuterol sulfate 90 mcg/actuation HFA aerosol inhaler 1 puff INHALATION Q4H PRN (Reason: shortness of breath or wheezing) Qty: 6.7 1RF dexlansoprazole 60 mg capsule,biphase delayed releas 60 mg PO DAILY 30 Days Qty: 30 12RF cyclobenzaprine 10 mg tablet 10 mg PO TID PRN (Reason: muscle spasm) Qty: 60 1RF rizatriptan 5 mg tablet See Rx Instructions PO .COMPLEX PRN (Reason: Migraine Headache) Qty: 10 5RF Rx Instructions: take 1 tab at onset of headache; if no relief may repeat 1 tab after at least 2 hrs; max = 3 tabs/24 hr PO folic acid 1 mg tablet 1 mg PO DAILY Qty: 90 1RF atorvastatin 80 mg tablet 80 mg PO QHS Qty: 90 1RF Jardiance 25 mg tablet 25 mg PO DAILY Qty: 90 1RF lisinopril 2.5 mg tablet See Rx Instructions .ROUTE .COMPLEX Qty: 90 0RF Dose Instruction: Take 1 tablet by mouth once daily Rx Instructions: Take 1 tablet by mouth once daily pantoprazole 40 mg tablet,delayed release (DR/EC) See Rx Instructions .ROUTE .COMPLEX Qty: 90 1RF Dose Instruction: TAKE 1 TABLET BY MOUTH IN THE MORNING Rx Instructions: TAKE 1 TABLET BY MOUTH IN THE MORNING topiramate 200 mg tablet See Rx Instructions .ROUTE .COMPLEX Qty: 90 1RF Dose Instruction: Take 1 tablet by mouth once daily Rx Instructions: Take 1 tablet by mouth once daily Follow-up/Referrals: Karin Hoyt MD [Primary Care Provider] -
[2025-04-07 22:32] LABS: Basophils Percent Auto 0.5 % (0.2-1.2); Eosinophils Absolute Auto 0.1 K/mm3 (0-0.3); Eosinophils Percent Auto 2.1 % (0-4.4); Hematocrit 39.4 % (37.0-47.0); Hemoglobin 12.9 g/dL (12.0-15.0); Immature Platelet Fraction Pct 5.9 % (0.9-11.2); Lymphocytes Absolute Auto 1.33 K/mm3 (0.9-3.2); Lymphocytes Percent Auto 35.2 % (18.3-44.2); Mean Corpuscular HGB Conc 32.7 g/dl (32-36); Mean Corpuscular Hemoglobin 27.3 pg (26-34); Mean Corpuscular Volume 83.5 fl (80-100); Mean Platelet Volume 11.9 fl (7.4-10.4); Monocytes Absolute Auto 0.2 K/mm3 (0.1-0.6); Monocytes Percent Auto 6.1 % (2.6-8.5); Neutrophils Absolute Auto 2.1 K/mm3 (1.3-6.7); Neutrophils Percent Auto 56.1 % (45.5-73.1); Platelet Count Result 54 k/mm3 (150-375); Red Blood Count 4.72 M/mm3 (4.2-5.4); Red Cell Distribution Width 17.2 % (11.5-14.5); White Blood Count 3.8 K/mm3 (4.5-10.0)
[2025-04-07 22:40] LABS: Alanine Aminotransferase 35 U/L (6-35); Albumin Level 4.2 g/dL (3.5-5.1); Alkaline Phosphatase 60 U/L (38-126); Anion Gap 13 mmol/L (4-12); Aspartate Amino Transferase 52 U/L (14-36); Bilirubin,Total 0.9 mg/dL (0.2-1.3); Blood Urea Nitrogen 13 mg/dL (7-17); Calcium 9.5 mg/dL (8.4-10.2); Carbon Dioxide 19 mmol/L (22-30); Chloride 109 mmol/L (98-107); Estimated Glomerular Filt Rate 55; Glucose 107 mg/dL (65-110); Potassium 3.4 mmol/L (3.4-5.0); Sodium 141 mmol/L (137-145); Total Protein 7.1 g/dL (6.3-8.2)
[2025-04-07 22:55] LABS: Platelet Estimate Decreased (Adequate)
[2025-04-07 22:56] LABS: Anisocytosis 1+; Ovalocytes 1+; Schistocytes None Seen
[2025-04-07] MEDS: MECLIZINE HCL 25 MG TABLET PO (23:33)
[2025-04-07] MEDS: LACTATED RINGERS 1,000 ML 999 ML IV CONT (23:33)
[2025-04-08] VITALS (19 sets, daily range): BP systolic 100–126; BP diastolic 61–79; PULSE 78–87; RESP 14–15; O2SAT 99–100
[2025-04-08] MEDS: LACTATED RINGERS 1,000 ML 999 ML IV CONT (00:17)
== END 2025-04-08 02:44 | disposition home or self-care (01) ==
PROVIDERS: Emergency Provider Emergency Medicine; PCP Family Medicine
DX: R42 Dizziness and giddiness (principal); I10 Essential (primary) hypertension; E11.9 Type 2 diabetes mellitus without complications; K21.9 Gastro-esophageal reflux disease without esophagitis; F31.81 Bipolar II disorder; E55.9 Vitamin D deficiency, unspecified; E78.49 Other hyperlipidemia; F17.290 Nicotine dependence, other tobacco product, uncomplicated
CPT/HCPCS: 36415; 70496; 70498; 71046; 80053; 85025; 85055; 93005; 96360; 96361; 99284; A9270; J7120; Q9967

== ENCOUNTER 2025-04-12 16:33 | Emergency (ER) | payer OTHER, SELFPAY ==
--- NOTE | ~2025-04-12 | CT_ITS ---
CT OF bilateral orbits with contrast EXAMINATION: CT orbit BI w con DATE: 04/12/2025 21:39 INDICATION: TECHNIQUE: Computed tomography (CT) of the bilateral orbits was performed 100 mL Omnipaque 350 intrav enous contrast. Automated exposure control and iterative reconstruction technique were employed. The dose-length product was 191.57 mGy-cm. COMPARISON: CTA brain carotid 04/07/2025 FINDINGS: No soft tissue swelling. The orbits are symmetric. The lenses are in normal position. No abnormal vit reous density. Symmetric bilateral optic nerves, without enhancement. Normal appearing bilateral opht halmic arteries and veins. Normal-appearing extraocular muscles No abnormal enhancing lesions detecte d. Normal preseptal and orbital fat. The aerated spaces are clear. No acute osseous finding. IMPRESSION: Normal bilateral orbits CT findings. Reviewed, dictated and finalized at location K.
--- OUTSIDE RECORDS SUMMARY | 2025-04-12 16:35 | XMS_ITS | Clinical Summary ---
Author Organization [facility] [email or web address] Address [address] [place] [address] Care Team Providers Care Clothing Sales Assistant Name Role Phone Sadia Morris Primary Care Provider [phone] Sadia Morris Unavailable Source Comments [facility],non-owned Affiliates and Associated Physician Practices is amultiple site organization consisting of ambulatory clinics and hospital sitesin [place], [place] and [place]. This disclosure is being madepursuant to the Care Everywhere program and may not contain all information available regarding this patient. Last updated 18.[email or web address] Allergies Active Allergy Reactions Criticality Noted Date Comments Sumatriptan Myalgias 03/15/2023 Sumatriptan Headache 10/07/2024 Carpenter Oil Rash,Itching,Skin Reactions Medium 08/01/2017 actual sunflowers themselves Carpenter Oil Nausea and/or Vomiting 10/07/2024 Medications * [...] as needed Active Glucagon 3 MG/DOSE POWD Valdez 3 mg into the nose as needed [...] Sulfate (IRON PO) Active Continuous Glucose Sensor (Hexago G7 Sensor) [facility] [place] APPLY 1 SENSOR TOPICALLY, CHANGE AND REPLACE EVERY 10 DAYS. USE TO MONITOR GLUCOSE. 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); Secondary esophageal varices without bleeding (HCC) 03/22/2025 9:22 AM CDT - 03/22/2025 11:59 PM CDT Hospital Encounter [facility] [address] [place] [address] Salomon Sapp MD Discharge Disposition: Home or Self Care 03/22/2025 Travel 03/05/2025 Orders Only [facility] - GI [address] [place] [address] Salomon Spap MD 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); Liver lesion; Secondary esophageal varices with bleeding (HCC); Iron deficiency anemia due to chronic blood loss 02/01/2025 9:31 AM CDT Anesthesia Event [facility] [address] [place] [address] Ninfa Cruz MD Dobbs, Kristin L, GUS-MITCHELL 02/01/2025 9:00 AM CDT - 02/01/2025 9:30 AM CDT Surgery [facility] [address] [place] [address] Salomon Sapp MD EGD +/- banding w/ sekou 02/01/2025 7:50 AM CDT - 02/01/2025 10:34 AM CDT Hospital Encounter [facility] [address] [place] [address] Salomon Sapp MD Surgery General Discharge Disposition: Home or Self Care 02/01/2025 Travel 01/21/2025 Orders Only [facility] - GI [address], [place] [address] Salomon Sapp MD from Last 3 Months Immunizations Immunization Administration [...] and heating? Not hard at all 10/07/2024 [facility] - Occupational Stress [...] any time in the past 12 m [facility], were you homeless or living in a penitentiary (including now)? No 10/07/2024 Comments No Sex and Gender Information Value Date Recorded Sex Assigned at Female 04/21/2024 2:38 PM CDT Legal Sex Female 5:23 PM [employer] Gender Identity Female 04/21/2024 2:38 PM CDT [...] 9:01 AM CDT Height 157.5 cm (5' 2) 02/01/2025 9:01 AM CDT Body Mass Index 37.99 02/01/2025 9:01 AM CDT Plan of Treatment Upcoming Encounters Date Type Department Care Team (Latest Contact Info) Description 05/03/2025 10:30 AM CDT Hospital Encounter [facility] [address] [place] [phone] Salomon Sapp MD [address] [place] [address] [address] [place] [address] Surgery General 05/03/2025 10:30 AM CDT - 05/03/2025 11:00 AM CDT Surgery [facility] [address] [place] [phone] Salomon Sapp MD [address] [place] [address] [address] [place] [address] EGD +/- banding w/ Sekou 05/07/2025 12:30 PM CDT Office Visit [facility] - GI [address] [place] [phone] Salomon Sapp MD [address] [place] [address] [address] [place] [address] 09/24/2025 9:30 AM [employer] Appointment [facility] [address] [place] [phone] Salomon Sapp MD [address] [place] [address] [address] [place] [address] 09/24/2025 10:30 AM [employer] Office Visit [facility] - GI [address] [place] [phone] Salomon Sapp MD [address] [place] [address] [address] [place] [address] Scheduled Procedures Name Priority Associated Diagnoses Date/Ti me ESOPHAGOGASTRODUODENOSCOPY ( EGD) DIAGNOSTIC Esophageal varices without bleeding, unspecified esophageal varices type (HCC) 05/03/2025 10:30 AM CDT Health Maintenance Due Date Last Done Comments COLOGUARD (AGES 45-75) - COLON CA SCREENING 1978 CT COLONOGRAPHY - COLON CA SCREENING 1978 FIT - COLON CA SCREENING 1978 FLEX SIG - COLON CA SCREENING 1978 MAMMOGRAM 1978 HIV SCREENING 1993 DTAP/TDAP/TD VACCINES (1 - Tdap) 1997 PNEUMOCOCCAL VACCINE (1 of 2 - PCV) 1997 PAP SMEAR 1999 DIABETES RETINOPATHY SCREENING 12/04/2018 DIABETES-FOOT EXAM WITH MONOFILAMENT 12/04/2018 COVID-19 VACCINE ( - season) 2024 DIABETES - URINE PROTEIN [...] Management General On track( 025 9:52 AM [employer]) Mary Kay Andrade RN Note: Expected end date: ongoing Interventions: Take all medications as prescribed Let your doctor know right away about any changes in your medications Make sure to request a refill of your medication at least one week prior to your last dose Procedures Procedure Name Priority Date/Time Associated Diagnosis Comments MRI ABDOMEN WWO CONTRAST Routine 03/22/2025 9:48 AM CDT 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 Sapp [...] CDT HEMOGLOBIN A1C Routine 10/08/2024 9:31 AM [employer] ENDOSCOPY, COLON, DIAGNOSTIC Routine 08/27/2022 12:28 PM [employer] HEPATITIS C ANTIBODY Routine 11/14/2017 10:15 AM [employer] from Last 3 Months or Most Recently Relevant to Health Maintenance Results * MRI Abdomen Wwo Contrast (03/22/2025 9:48 AM CDT) Anatomical Region Laterality Modality Abdomen Magnetic Resonan ce 03/23/2025 1:50 PM CDT Impressions 03/23/2025 1:56 PM CDT Impression: 1.Multiple previously seen sub-5 mm arterial enhancing observations are not visualized on the current study. No suspicious lesion. 2.Hepatic cirrhosis with sequelae of portal hypertension including splenomegaly and trace ascites. > Interpreting Provider: Dennis Winters MD on 03/23/2025 1:56 PM Narrative 03/23/2025 1:56 PM CDT PROCEDURE: MRI ABDOMEN WWO CONTRAST DATE/TIME OF EXAM: 03/22/2025 10:01 AM CLINICAL INFORMATION: None relevant/not provided if blank. 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 TECHNIQUE: Multiplanar multisequence MR imaging of the abdomen before and following uneventful administration of intravenous contrast according to standard contrast-enhanced protocol. CONTRAST: GADOBENATE DIMEGLUMINE 529 MG/ML IV SOLN:18 mL FINDINGS: Lower Chest: Normal. Hepatobiliary system Liver morphology: Surface nodularity of the liver is consistent with hepatic cirrhosis. Steatosis: None. Varices: None. Spleen: Enlarged, measuring 19 cm Ascites: Trace volume. Focal liver observations Previously described arterially enhancing observations sub-5 mm arterial enhancing LR 3 observations are not well seen. Scattered subcentimeter hepatic cysts. There is a 1 cm cyst (Series 4, Image 11) that has decreased since the prior exam although it being cystic and benign-appearing Hepatic vasculature Portal and hepatic veins: Patent. [...] Levocurvature of the thoracic spine. Procedure Note Dennis Winters MD - 03/23/2025 PROCEDURE: MRI ABDOMEN WWO CONTRAST DATE/TIME OF EXAM: 03/22/2025 10:01 AM CLINICAL INFORMATION: None relevant/not provided if blank. 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 TECHNIQUE: Multiplanar multisequence MR imaging of the abdomen before and following uneventful administration of intravenous contrast according to standard contrast-enhanced protocol. CONTRAST: GADOBENATE DIMEGLUMINE 529 MG/ML IV SOLN:18 mL FINDINGS: Lower Chest: Normal. Hepatobiliary system Liver morphology: Surface nodularity of the liver is consistent with hepatic cirrhosis. Steatosis: None. Varices: None. Spleen: Enlarged, measuring 19 cm Ascites: Trace volume. Focal liver observations Previously described arterially enhancing observations sub-5 mmarterial enhancing LR 3 observations are not well seen. Scattered subcentimeter hepatic cysts. There is a 1 cm cyst (Series 4, Image 11) that hasdecreased since the prior exam although it being cystic and benign-appearing Hepatic vasculature Portal and hepatic veins: Patent. [...] Levocurvature of the thoracic spine. Impression: 1.Multiple previously seen sub-5 mm arterial enhancing observations arenot visualized on the current study. No suspicious lesion. 2.Hepatic cirrhosis with sequelae of portal hypertension including splenomegaly and trace ascites. > Interpreting Provider: Dennis Winters MD on 03/23/2025 1:56 PM us Salomon Sapp MD MR ORDERABLES Final Result * EGD (02/01/2025 9:33 AM CDT) Report [...] entire procedure. Procedure Code(s): --- Professional --- 57317, Esophagogastroduo denoscopy, flexible, transoral; with band ligation of esophageal/gastri c varices Diagnosis Code(s): --- Professional --- I85.00, Esophageal varices without bleeding K22.89, Other specified disease of esophagus K76.6, Portal hypertension K31.89, Other diseases of stomach and duodenum CPT copyright 2021 [employer] Medical Association. All rights reserved. The codes documented in this report are preliminary and upon system manager review may be revised to meet current compliance requirements. _ Salomon Sapp MD 02/01/2025 9:52:30 AM This report has been signed electronically. Note Initiated On: 02/01/2025 9:33 AM Number of Addenda: 0 [facility] [address] [place] [id number] [facility] 02/01/2025 9:33 AM CDT Salomon Sapp MD GI PROCEDURE ORDERABLES Edited Result - Final [facility] * (ABNORMAL) GLUCOSE - POINT OF CARE (02/01/2025 8:55 AM CDT) Glucose WB/POC 155(H) 70 - 99 mg/dL 02/01/2025 11:56 AM CDT [facility] Specimen Type Cap Fingerstick 2024 11:56 AM CDT [facility] Blood BLOOD SPECIMEN / Unknown 02/01/2025 8:55 AM CDT 02/01/2025 11:56 AM CDT Salomon Sapp MD LAB - POINT OF CARE ORDERABLES Final Result Performing Organization Address [facility] Co de Phone Number [address] [address], [facility] [phone] * (ABNORMAL) PT-INR (01/21/2025 12:20 PM CDT) INR 1.2(H) [facility] Comment: Reference Range 0.9-1.1 Moderate-intensity Warfarin Therapy 2.0-3.0 Higher-intensity Warfarin Therapy 3.0-4.0 PT 12.6(H) 9.0 - 11.5 sec [facility] Comment: For additional information, please refer to http://education.GuzzMobile/faq/GUS015 (This link is being provided for informational/ educational purposes only.) REPORT COMMENT: NAME BRAND AN UPDATE OR CORRECTION HAS BEEN MADE TO NAME Test Performed at: [facility] [address] GISSEL OLIVER MD 01/21/2025 12:2 0 PM CDT 01/21/2025 12:21 PM CDT us Salomon Sapp MD LAB - COAGULATION ORDERABLES F inal Result Performing Organization Address [facility] de Phone Number [facility] [phone] [place] [address] * FERRITIN (01/21/2025 12:19 PM CDT) [facility] Ferritin 27 16 - 232 ng/mL [facility] Comment: REPORT COMMENT: NAME BRAND Test Performed at: [place] [address] GISSEL OLIVER MD 01/21/2025 12:1 9 PM CDT 01/21/2025 12:20 PM CDT us Salomon Sapp MD LAB - CHEMISTRY ORDERABLES Fin al Result Performing Organization Address [facility] de Phone Number [facility] [address] [place] [address] * (ABNORMAL) PLATELET ESTIMATION (01/21/2025 12:17 PM CDT) [facility] Platelet Estimation DECREASED (A) [facility] Comment: Test Performed at: [place] [address] GISSEL OLIVER MD 01/21/2025 12:1 7 PM CDT 01/21/2025 12:18 PM CDT us Salomon Sapp MD LAB - HEMATOLOGY ORDERABLES Fi nal Result Performing Organization Address [facility] de Phone Number [facility] [phone] [place] [address] * ALPHA FETOPROTEIN BLOOD TUMOR MARKER (01/21/2025 12:17 PM CDT) [facility] Alpha-Fetoprotei n Tumor Marker 2.5 ng/mL [facility] Comment: Reference Range: <6.1 The use of AFP as a tumor marker in females is not recommended. This test was performed using the [place] chemiluminescent method. Values obtained from different assay methods cannot be used interchangeably. AFP levels, regardless of value, should not be interpreted as absolute evidence of the presence or absence of disease. REPORT COMMENT: NAME BRAND AN UPDATE OR CORRECTION HAS BEEN MADE TO NAME Test Performed at: [facility] [address] [place] [address] CRUZ KEARNEY 01/21/2025 12:1 7 PM CDT 01/21/2025 12:18 PM CDT Salomon Sapp MD LAB - CHEMISTRY ORDERABLES Fin al Result [facility] [id number] [place] [address] * (ABNORMAL) CBC WITH DIFFERENTIAL (01/21/2025 12:17 [...] 0.5 % [facility] Comment: Test Performed at: [facility] ([place]) [address] [facility] [place] [address] GISSEL OLIVER MD Blasts [facility] nRBC [facility] Comments [facility] Comment: Test Performed at: [facility] ([place]) [address] [facility] [place] [address] GISSEL OLIVER MD 01/21/2025 12:1 7 PM CDT 01/21/2025 12:18 PM CDT Salomon Sapp MD LAB - HEMATOLOGY ORDERABLES Fi nal Result [facility] [address] [place] [address] * (ABNORMAL) COMPREHENSIVE METABOLIC PANEL (01/21/2025 12:17 [...] 29 U/L [facility] Comment: Test Performed at: [facility] [address] [place] [address] GISSEL OLIVER MD 01/21/2025 12:1 7 PM CDT 01/21/2025 12:18 PM CDT Salomon Sapp MD LAB - CHEMISTRY ORDERABLES Fin al Result Performing Organization Address City/[facility]/ZIP Co de Phone Number [facility] [address] [place] [address] * HEMOGLOBIN A1C (10/08/2024 9:31 AM [employer]) Hemoglobin A1c 5.3 <=5.6 % 10/08/2024 1:40 PM [facility] Estimated Average Glucose 105 mg/dL 10/08/2024 1:40 PM [facility] Comment: HbA1c Interpretation: Normal : < 5.7% Pre-diabetes: 5.7-6.4% Diabetes: Equal to or greater than 6.5% Test results diagnostic of diabetes should be repeated for confirmation. Treatment target values recommended by ADA and other clinical organizations should be used to evaluate metabolic control in patients. Reference: British Diabetes Association, Standards of Care in Diabetes -2020 In patients 70 years and older consider HbA1c target range of 7.0-7.5% (Reference: Garcia Contreras, et al. JAMDA. 2012) The Sebia assay for the measurement of HbA1c is a National Glycohemoglobin Standardization Program (NGSP) certified method. Blood BLOOD SPECIMEN / Unknown Lab Venipuncture / Unknown 10/08/2024 9:31 AM [employer] 10/08/2024 9:59 AM [employer] Ron Dawson MD LAB - CHEMISTRY ORDERABLES Final Result [facility] [address] [place] [address], [facility] [phone] * ENDOSCOPY, COLON, DIAGNOSTIC (08/27/2022 12:28 PM [employer]) Report Endoscopy POC Endoscopy Department Report _ [...] entire procedure. Procedure Code(s): --- Professional --- 39317, Colonoscopy, flexible; with removal of tumor(s), polyp(s), or other lesion(s) by snare technique Diagnosis Code(s): --- Professional --- K63.5, Polyp of colon K64.4, Residual hemorrhoidal skin tags R10.84, Generalized abdominal pain K92.1, Melena (includes Hematochezia) CPT copyright 2019 British Medical Association. All rights reserved. The codes documented in this report are preliminary and upon system manager review may be revised to meet current compliance requirements. Salomon Sapp MD 08/27/2022 1:27:31 PM This report has been signed electronically. Note Initiated On: 08/27/2022 12:28 PM Number of Addenda: [address] [id number] [facility] 08/27/2022 12:2 8 PM [employer] us Salomon Sapp MD GI PROCEDURE ORDERABLES Edited Result - Final [facility] * HEPATITIS C ANTIBODY (11/14/2017 10:15 AM [employer]) Hepatitis C Antibody Non-react vishal Non-reac tive [facility] Comment: Hepatitis C Antibody screen indicates no serologic evidence of past or current infection with Hepatitis C Virus. Patients with unexplained liver disease who are immunocompromised or suspected of having acute Hepatitis C infection may benefit from Nucleic Acid Test (USMAN) for Hepatitis C Viral RNA to confirm Hepatitis C status. Blood specimen (specimen) BLOOD SPECIMEN / Unknown 11/14/2017 10:15 AM [employer] 11/14/2017 11:03 AM [employer] Verito Mcclendon MD LAB - CHEMISTRY ORDERABLES Final Result [facility] [address] [place] [address] from Last 3 Months or Most Recently Relevant to Health [place] [address] [facility] SELF PAY NO INSURANCE Member Subscriber Plan / Payer (Ef fective for All Dates) Name:Beulah Garcia Member ID:Not on file Relation to Subscriber:Not on file Name:BEULAH GARCIA Subscriber ID:Not on file (Home) Address: [address] [place] [address] [place] [address] Payer ID:Not on file Group ID:Not on file Type:Self Pay Address: [place], [place] Advance Directives * Full Code (Latest Code Status on File) Date Activated Date Inactivated Comments 10/07/2024 6:10 PM 10/11/2024 5:22 PM Care Teams Clothing Sales Assistant Relationship Specialty Start Date End Date Sadia Morris [address] [place] [address] [place] [id number] PCP - General 09/13/24 Sadia Morris [address] [place] [address] [address] [place] [address] 09/13/24
--- OUTSIDE RECORDS SUMMARY | 2025-04-12 16:35 | XMS_ITS | Clinical Summary ---
Author Organization [facility] Address [address] [place] [address] Care Team Providers Care Assembler Brazer Name Role Phone Sadia Morris NP Primary Care Provider + Allergies Active Allergy Reactions Criticality Noted Date Comments Sumatriptan Muscle pain,Other (See comments) Medium Colbert Oil Hives Medium 02/13/2022 Medications cyclobenzaprine (FLEXERIL) [...] on file Legal Sex Female 11:18 PM CAP SEWER Gender Identity Not on file Sexual Orientation Not on file Obstetrics History Last Filed Vital Signs Vital Sign Reading Time Taken Comments Blood Pressure 122/71 09/13/2024 3:03 PM CAP SEWER Pulse 64 09/13/2024 3:03 PM CAP SEWER Temperature 36.2 C (97.2 F) 09/13/2024 3:03 PM CAP SEWER Respiratory Rate 16 09/13/2024 3:03 PM CAP SEWER Oxygen Saturation 97% 09/13/2024 3:03 PM CAP SEWER Inhaled Oxygen Concentration - - Weight 90.3 kg (199 lb) 09/12/2024 2:18 AM CAP SEWER Height 157.5 cm (5' 2) 09/12/2024 2:18 AM CAP SEWER Body Mass Index 36.4 09/12/2024 2:18 AM CAP SEWER Plan of Treatment Health Maintenance Due Date [...] Comments HEMOGLOBIN A1C Routine 09/12/2024 4:58 AM CAP SEWER EGFR STAT 09/11/2024 11:22 PM CAP SEWER from Last 3 Months or Most Recently Relevant to Health Maintenance Results * Hemoglobin A1c (09/12/2024 4:58 AM CAP SEWER) Hgb A1C 5.4 4.0 - 5.6 % Estimated Average Glucose 108 mg/dL JUDITH THOMPSON ([place]) Comment: The ADA recommends reporting an estimated Average Glucose (eAG) with all Hemoglobin A1c results using the equation derived from a study of 507 normal and diabetic adults. Minority populations were underrepresented and children were not included. (Diabetes Care 31:5982-6469, 2008). The eAG is not equivalent to a fasting glucose. Blood 09/12/2024 4:58 AM CAP SEWER 09/12/2024 5:07 AM CAP SEWER us Dionicio Levin MD LAB BLOOD ORDERABLES Final Resu lt JUDITH THOMPSON ([place]) 1 [facility] Department [place] [address] * eGFR (09/11/2024 11:22 PM CAP SEWER) eGFR 69 >=60 mL/min/1. 73 m2 Comment: [...] reviewed 2021. Blood 09/11/2024 11:2 2 PM CAP SEWER 09/11/2024 11:22 PM CAP SEWER Valdez Lee MD LAB BLOOD ORDERABLES Final R esult [facility] ([place]) 1 [facility] Department [place] [address] from Last 3 Months or Most Recently Relevant to Health Maintenance Insurance [facility] Advance Directives For more information, please contact: [phone] * LIMITED - No CPR (Latest Code [...] 1:26 AM 09/12/2024 5:23 AM Care Teams Assembler Brazer Relationship Specialty Start Date End Date Sadia Morris NP [address] [place] [address] [place] [address] PCP - General Nurse Practitioner 02/28/24
--- OUTSIDE RECORDS SUMMARY | 2025-04-12 16:35 | XMS_ITS | Clinical Summary ---
Author Organization [facility] Address [address], [facility] [address] [place] [address] Phone Care Team Providers Care Brine Tank Separator Operator Name Role Phone Ric Malik MD Unavailable [phone] Ric Malik MD Unavailable [phone] Natacha Hoyt MD Primary Care Provider Allergies Active Allergy Reactions Criticality Noted Date Comments Sumatriptan Other (see Comments) 03/15/2023 [place] Oil Hives,Nausea,Vomitin g,Other (see Comments) Low 04/11/2017 [...] Active Continuous Glucose Sensor (Dexcom G7 Sensor) [facility] APPLY 1 SENSOR TOPICALLY, CHANGE AND REPLACE [...] by Subcutaneous route. 4 Active nystatin (MYCOSTATIN) 568339 UNIT/GM Cream Apply. 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) 01/21/2025 1:00 PM CDT Office Visit [facility] [address] [phone] Anne Rodriguez, LABOR RELATIONS SUPERVISOR, PHOTOLETTERING MACHINE OPERATOR Iron deficiency (Primary Dx); B12 deficiency; Thrombocytopenia [...] 12:55 PM CDT Height 157.5 cm (5' 2) 01/21/2025 12:55 PM CDT Body Mass Index 34.26 01/21/2025 12:55 PM CDT Plan of Treatment Upcoming Encounters Date Type Department Care Team (Late st Contact Info) Description 04/15/2025 1:00 PM CDT Office Visit [facility] [place] [address] [place] [address] Ric Malik MD [address] [place] [address] Health Maintenance Due Date Last Done Comments Mammogram 1978 TdaP Immunization 1978 Pneumococcal Immunization Combined (1 of 2 - PCV) 1997 Pap Smear 1999 Cervical Cancer Screening (CCS) 2008 HPV/Cotest 2008 Discussion re Starting/Frequency of Mammograms 2018 Cologuard 2023 Immunochemical Fecal Occult Blood 2023 SARS-COV-2 Immunization ( season) 2024 Influenza Immunization (Seas on Ended) 2025 07/15/2020, 09/14/2019 Colonoscopy 08/27/2032 08/27/2022 Colorectal Cancer Screening 08/27/2032 Respiratory Syncytial Virus (RSV) Immunization (Adult) (1 - 1-dose 75+ series) 2053 Hepatitis C Virus (HCV) Screening Completed 11/14/2017 [...] IRON 94 50 - 212 ug/dL [facility] UIBC 295 155 - 355 ug/dL [facility] TIBC 389 261 - 478 ug/dl [facility] % Saturation 24 20 - 50 % [facility] 01/21/2025 1:27 PM CDT Narrative [facility] - 01/21/2025 2:25 PM CDT Release to patient->Immediate Anne Rodriguez LABOR RELATIONS SUPERVISOR, PHOTOLETTERING MACHINE OPERATOR LAB SEND OUTS Final Result [facility] [place] [address], * (ABNORMAL) CBC WITH AUTO DIFF [place] (01/21/2025 1:27 PM CDT) WBC 3.7(L) 4.0 - 10.0 10*3/uL [facility] HGB 11.8 11.2 - 15.7 g/dL [facility] HCT 36.2 34.1 - 44.9 % [facility] PLT 57(L) 163 - 369 10*3/uL [facility] MPV 10.0 9.4 - 12.4 fL [facility] RBC 4.47 3.93 - 5.22 10*6/uL [facility] MCV 81 79 - 95 fL [facility] MCH 26.4 25.6 - 32.2 pg [facility] MCHC 32.6 32.2 - 36.5 g/dL [facility] RDW 15.1(H) 11.6 - 14.4 % [facility] Neutrophils % 70.7(H) 36.0 - 66.0 % [facility] Lymphocytes % 22.0 19.0 - 40.0 % [facility] Monocytes % 4.6 4.1 - 12.1 % [facility] Eosinophils % 1.9 0.0 - 3.5 % [facility] Basophils % 0.5 0.0 - 1.0 % [facility] Absolute Neutrophils 2.6 1.4 - 6.6 10*3/uL [facility] Absolute Lymphocytes 0.8 0.8 - 4.0 10*3/uL [facility] Absolute Monocytes 0.2 0.2 - 1.2 10*3/uL [facility] Absolute Eosinophils 0.1 0.0 - 0.4 10*3/uL [facility] Absolute Basophils 0.0 0.0 - 0.1 10*3/uL [facility] 01/21/2025 1:27 PM CDT Anne Rodriguez APRN, PHOTOLETTERING MACHINE OPERATOR LAB SEND OUTS Final Result [facility] [address] [place] [address], * VITAMIN B12 (01/21/2025 1:27 PM CDT) Vitamin B12 342 180 - 914 pg/mL [facility] Blood 01/21/2025 1:27 PM CDT Narrative [facility] - 01/22/2025 2:36 PM CDT Release to patient->Immediate Anne Rodriguez APRN, PHOTOLETTERING MACHINE OPERATOR CHEMISTRY ORDERABLES Final Result [facility] [address] [place] [address], [place] [phone] * FOLIC ACID (FOLATE) (01/21/2025 1:27 PM CDT) Folate 14.72 >=5.90 ng/mL [facility] Blood 01/21/2025 1:27 PM CDT Narrative [facility] - 01/22/2025 2:36 PM CDT Release to patient->Immediate IS THE PATIENT REQUIRED TO BE FASTING FOR 12 HOURS?->No Anne Rodriguez APRN, PHOTOLETTERING MACHINE OPERATOR CHEMISTRY ORDERABLES Final Result Performing Organization Address City/[facility]/ZIP Co de Phone Number [facility] Cancer Care [address] [place] [address], [place] [phone] * FERRITIN (01/21/2025 1:27 PM CDT) Ferritin 24 11 - 307 ng/mL [facility] Blood 01/21/2025 1:27 PM CDT Narrative [facility] - 01/22/2025 2:36 PM CDT Release to patient->Immediate Anne Rodriguez APRN, PHOTOLETTERING MACHINE OPERATOR CHEMISTRY ORDERABLES Final Result Performing Organization Address City/[facility]/ZIP Co de Phone Number [facility] [place] [address], [place] [phone] * (ABNORMAL) CMP (COMPREHENSIVE METABOLIC PANEL) (01/21/2025 1:27 PM CDT) Glucose 183(H) 70 - 105 mg/dL [facility] Blood Urea Nitrogen 12 7 - 25 mg/dL [facility] Creatinine 0.8 0.6 - 1.2 mg/dL [facility] Sodium 142 136 - 145 mEq/L [facility] Potassium 3.3(L) 3.5 - 5.1 mEq/L [facility] Chloride 108(H) 98 - 107 mEq/L [facility] Bicarbonate 23 21 - 31 mEq/L [facility] Total Bilirubin 0.8 0.3 - 1.0 mg/dL [facility] Alk. Phosphatase 80 34 - 104 U/L [facility] Aspartate Aminotransferase 36 13 - 39 U/L [facility] Alanine Aminotransferase 34 7 - 52 U/L [facility] Total Protein 6.4 6.4 - 8.9 g/dL [facility] Albumin 4.1 3.5 - 5.7 g/dL [facility] Calcium 9.3 8.6 - 10.3 mg/dL [facility] Anion Gap 14.3 7.0 - 15.0 mEq/L [facility] Globulin 2.3 2.0 - 3.5 g/dL [facility] EGFR 92 >60 ml/min/1. 73m2 [facility] Comment: This eGFR is calculated using 2020 CKD-EPI Creatinine equation without race modifier based on the NKF-ASN task force recommendations Equation: fLTP=644*min(SCr/k,1)a*max(SCr/k,1)-1.200*0.9938Age*1.012 (if female), where SCr is serum creatinine, k is 0.7 for females and 0.9 for males, and a is -0.241 for females and -0.302 for males Blood 01/21/2025 1:27 PM CDT Narrative [facility] - 01/21/2025 2:25 PM CDT Release to patient->Immediate IS THE PATIENT REQUIRED TO BE FASTING FOR 8 HOURS?->No Anne Rodriguez LABOR RELATIONS SUPERVISOR, PHOTOLETTERING MACHINE OPERATOR CHEMISTRY ORDERABLES Final Result [facility] [place] [address], from Last 3 Months Insurance MEDICAID [facility] MEDICAID [facility] Care Teams Brine Tank Separator Operator Relationship Specialty Start Date End Date Natacha Hoyt MD [address] [place] [address] PCP - General Family Medicine 08/29/23 Ric Malik MD [address] [place] [phone] Consulting Physician Oncology 05/22/22 Ric Malik MD [address] [place] [phone] Consulting Physician Oncology 08/28/23
--- OUTSIDE RECORDS SUMMARY | 2025-04-12 16:35 | XMS_ITS | Referral Summary ---
Author Organization [facility] Address [address] [place] [address] Care Team Providers Care Rating Examiner Name Role Phone Sadia Morris NP Primary Care Provider + Allergies Active Allergy Reactions Criticality Noted Date Comments Sumatriptan Muscle pain,Other (See comments) Medium Glen Oil Hives Medium 02/13/2022 Medications cyclobenzaprine (FLEXERIL) [...] on file Legal Sex Female 11:18 PM BUSINESS SUPPORT ADMINISTRATOR Gender Identity Not on file Sexual Orientation Not on file Last Filed Vital Signs Vital Sign Reading Time Taken Comments Blood Pressure 122/71 09/13/2024 3:03 PM BUSINESS SUPPORT ADMINISTRATOR Pulse 64 09/13/2024 3:03 PM BUSINESS SUPPORT ADMINISTRATOR Temperature 36.2 C (97.2 F) 09/13/2024 3:03 PM BUSINESS SUPPORT ADMINISTRATOR Respiratory Rate 16 09/13/2024 3:03 PM BUSINESS SUPPORT ADMINISTRATOR Oxygen Saturation 97% 09/13/2024 3:03 PM BUSINESS SUPPORT ADMINISTRATOR Inhaled Oxygen Concentration - - Weight 90.3 kg (199 lb) 09/12/2024 2:18 AM BUSINESS SUPPORT ADMINISTRATOR Height 157.5 cm (5' 2) 09/12/2024 2:18 AM BUSINESS SUPPORT ADMINISTRATOR Body Mass Index 36.4 09/12/2024 2:18 AM BUSINESS SUPPORT ADMINISTRATOR Plan of Treatment Not on file Procedures Procedure Name Priority Date/Time Associated Diagnosis Comments HEMOGLOBIN A1C Routine 09/12/2024 4:58 AM BUSINESS SUPPORT ADMINISTRATOR EGFR STAT 09/11/2024 11:22 PM BUSINESS SUPPORT ADMINISTRATOR from Last 3 Months or Most Recently Relevant to Health Maintenance Results * Hemoglobin A1c (09/12/2024 4:58 AM BUSINESS SUPPORT ADMINISTRATOR) Hgb A1C 5.4 4.0 - 5.6 % Estimated Average Glucose 108 mg/dL JUDITH THOMPSON ([place]) Comment: The ADA recommends reporting an estimated Average Glucose (eAG) with all Hemoglobin A1c results using the equation derived from a study of 507 normal and diabetic adults. Minority populations were underrepresented and children were not included. (Diabetes Care 31:9133-1315, 2008). The eAG is not equivalent to a fasting glucose. Blood 09/12/2024 4:58 AM BUSINESS SUPPORT ADMINISTRATOR 09/12/2024 5:07 AM BUSINESS SUPPORT ADMINISTRATOR Dionicio Levin MD LAB BLOOD ORDERABLES Final Resu lt JUDITH THOMPSON ([place]) 1 [facility] Department of Laboratories [place], [place] [id number] * eGFR (09/11/2024 11:22 PM BUSINESS SUPPORT ADMINISTRATOR) eGFR 69 >=60 mL/min/1. 73 m2 Comment: [...] reviewed 2021. Blood 09/11/2024 11:2 2 PM BUSINESS SUPPORT ADMINISTRATOR 09/11/2024 11:22 PM BUSINESS SUPPORT ADMINISTRATOR Valdez Lee MD LAB BLOOD ORDERABLES Final R esult [facility] [place]) 1 [facility] Department of [place] [address] from Last 3 Months or Most Recently Relevant to Health Maintenance Insurance Advance Directives For more information, please contact: [phone] * LIMITED - No CPR (Latest Code [...] 1:26 AM 09/12/2024 5:23 AM Care Teams Rating Examiner Relationship Specialty Start Date End Date Sadia Morris NP [address] [place] [address] [place] [id number] PCP - General Nurse Practitioner 02/28/24
--- OUTSIDE RECORDS SUMMARY | 2025-04-12 16:35 | XMS_ITS | Encounter Summary ---
Author Organization [facility] Address [address] [facility] [place] [address] Care Team Providers Care Green Meat Grader Name Role Phone Sadia Morris Primary Care Provider [phone] Sadia Morris Primary Care Provider [phone] Sadia Morris Unavailable Reason for Visit * Reason Onset Date Comments MEDICATION REFILL 01/21/2024 Encounter Details Date Type Department Care Team (Late st Contact Info) Description 01/21/2024 Refill [facility] [address] [place] [address], [facility] [place] [phone] Salomon Sapp MD [address] [place] [address] [place] [address] MEDICATION REFILL Social History Tobacco Use Types [...] PM CDT Legal Sex Female 5:23 PM AUTO MECHANICS TEACHER Gender Identity Female 04/21/2024 2:38 PM CDT [...] Description 05/03/2025 10:30 AM CDT Hospital Encounter [facility] [address] [place] [address] Salomon Sapp MD [address] [place] [address] [address] [place] [address] Surgery General 05/03/2025 10:30 AM CDT - 05/03/2025 11:00 AM CDT Surgery [facility] [address] [place] [address] Salomon Sapp MD [address] [place] [address] [address] [place] [address] EGD +/- banding w/ Sekou 05/07/2025 12:30 PM CDT Office Visit [facility] [address] [place] [phone] Salomon Sapp MD [address] [place] [address] [address] [place] [address] 09/24/2025 9:30 AM AUTO MECHANICS TEACHER Appointment [facility] [address] [place] [phone] Salomon Sapp MD [address] [place] [address] [address] [place] [address] 09/24/2025 10:30 AM AUTO MECHANICS TEACHER Office Visit [facility] [address] [place] [phone] Salomon Sapp MD [address] [place] [address] [address] [place] [address] Scheduled Procedures Name Priority Associated Diagnoses Date/Ti me ESOPHAGOGASTRODUODENOSCOPY ( EGD) DIAGNOSTIC Esophageal varices without bleeding, unspecified esophageal varices type (HCC) 05/03/2025 10:30 AM CDT documented as of this encounter Goals Goal Patient Goal Type Associated Problems Recent Progress Patient-Stated? Author Medication Management General On track( 025 9:52 AM AUTO MECHANICS TEACHER) Mary Kay Andrade, RN Note: Expected end date: ongoing Interventions: Take all medications as prescribed Let your doctor know right away about any changes in your medications Make sure to request a refill of your medication at least one week prior to your last dose documented as of this encounter Visit Diagnoses Not on filedocumented in this encounter Care Teams Green Meat Grader Relationship Specialty Start Date End Date Sadia Morris [address] [place] [address] PCP - General 09/24/23 09/12/24 Sadia Morris [address] [place] [address] PCP - General 09/13/24 Sadia Morris [address] [facility] [address] [place] [address] 09/13/24 documented as of this encounter
--- OUTSIDE RECORDS SUMMARY | 2025-04-12 16:35 | XMS_ITS | Patient Health Record ---
Author Organization [facility] Address [address] [place] [address] Care Team Providers Care Maintenance Director Name Role Phone Allie Lopez Primary Care Provider [phone] Allergies Allergen (clinical drug ingredient) Drug/Non Drug Allergy documented on EMR Reaction Allergy Type Onset Date Status Newberry Oil sunflower oil (uncoded) rash Allergy Active Reason For Referral No Information Medications Medication SIG (Take, Route, Frequency, Duration) Notes Start Date End Date Status Cariprazine HCl 6 MG 1 capsule Orally Once a day; Duration: 90 days Active Dexlansoprazole 60 MG 1 capsule Orally Once a day GERD Active Nicotine Step 1 21 MG/24HR 1 patch to skin Transdermal Once a day; Duration: 30 days 02/23/2025 Active Atorvastatin Calcium 80 MG 1 tablet Orally Once a day Hyperlipidemia Active Prazosin HCl 2 MG 1 capsule at bedtime Orally Once a day; Duration: 90 days Active Mounjaro Active Lisinopril 2.5 MG 1 tablet Orally Once a day HTN Active Doxepin HCl 25 MG 1 capsule at bedtime Orally Once a day; Duration: 90 days As needed Active Topiramate ER 200 MG 1 capsule Orally Once a day Migraine Active Folic Acid Active Propranolol HCl 10 MG 1 tablet Orally Once a day Migraine Not-Taking busPIRone HCl 15 MG 1 tablet Orally Twice a day; Duration: 90 days Active Pantoprazole Sodium Active Cyclobenzaprine HCl Active HumaLOG KwikPen 100 UNIT/ML as directed Subcutaneous 65 units BID Active Jardiance Active Vitamin D 25 MCG (1000 UT) 1 tablet Orally Once a day Not-Taking Excedrin Extra Strength migraine PRN Active Carvedilol HTN Active hydrOXYzine HCl 25 MG 1 tablet as needed Orally three times a day; Duration: 90 days Active DULoxetine HCl 30 MG 1 capsule Orally twice a day; Duration: 90 days Active Doxepin HCl 10 MG 1 capsule at bedtime Orally Once a day; Duration: 30 day(s) 07/29/2024 Active Nicotine Polacrilex 2 MG as directed Mouth/Throat every 4 hours; Duration: 3 days As needed please dispense whatever [...] Status Risk Notes Problem Generalized anxiety disorder (54057233) Generalized anxiety disorder (F41.1) Active confirmed Problem Bipolar 1 disorder (071325279) Bipolar 1 disorder (F31.9) Active confirmed Problem Nicotine addiction (F17.200) Active confirmed Encounters Encounter Location Date Provider Diagnosis [address] [address] 04/22/2024 Allie [place] Bipolar 1 disorder F31.[address] [address] 06/18/2024 Allie John Bipolar 1 disorder F31.[address] [address] 08/18/2024 Allie [place] Bipolar 1 disorder F31.9 and Nicotine addiction F17.[address] [address] 09/29/2024 Allie [place] Bipolar 1 disorder F31.9 and Nicotine addiction F17.[address] [address] 12/01/2024 Allie [place] Bipolar 1 disorder F31.[address] [address] 02/23/2025 Allie John Bipolar 1 disorder F31.9 and Nicotine addiction F17.200 [address] [place] [address] 04/13/2024 Allie Lopez [address] [place] [address] 05/08/2024 Allie Lopez Bipolar 1 disorder F31.9 [facility] [address] [place] [address] 07/28/2024 Allie Lopez [facility] [address] [place] [address] 10/12/2024 Allie Lopez Assessments Encounter Date Diagnosis [...] in mood or behavior. Confirmed knowledge of CARES hotline [phone] for clients 20 and under and [place] Crisis line [phone] and awareness of 988. SSRI Discussed possible side effects: GI upset, headache, decreased libido/anorgasmia, weight gain, signs of serotonin syndrome and risk of activation to suicidality Plan Of Treatment No Information Insurance Providers Payer Name Payer Address Payer Phone Subscriber Number Group Number Insured Name Patient Relationship to Insured Coverage Start Date Coverage End Date [facility] Attn Claims Department [address] [place] [address] [phone] [id number] Beulah Fung Self - patient is the insured 3 [facility] Attn Claims Department [address] [place] [address] [phone] [id number] Beulah Fung Self - patient is the insured 3 Medical (General) History Medical History History ICD Code type II diabetes hypertension nephrolithiasis LOVE migraine headache Surgical History Surgery Date(Month/Year) hysterectomy due to fibroids 2017 cholecystectomy carpal/cubital tunnel Hospitalization History Reason Date(Month/Year) suicide attempt by self harm and attempt ed overdose 10/02
[2025-04-12 16:43] VITALS: BP 84/58; PULSE 89; RESP 18; TEMP 36.7; O2SAT 100
[2025-04-12] MEDS: FLUORESCEIN SOD 1 MG/STRIP EACH EYE (19:15)
[2025-04-12] MEDS: TETRACAINE HCL 0.5% OPHTH SOLN 4 ML BTL 1 DROP EACH EYE (19:15)
[2025-04-12 19:16] VITALS: BP 102/59; PULSE 79; RESP 16; TEMP 36.6; O2SAT 97
--- OUTSIDE RECORDS SUMMARY | 2025-04-12 19:30 | XMS_ITS | Referral Summary ---
Author Organization [facility] Address [address] [place] [address] Care Team Providers Care Piercing Specialist Name Role Phone Sadia Morris NP Primary Care Provider + Allergies Active Allergy Reactions Criticality Noted Date Comments Sumatriptan Muscle pain,Other (See comments) Medium [place] Oil Hives Medium 02/13/2022 Medications cyclobenzaprine (FLEXERIL) [...] on file Legal Sex Female 11:18 PM BUYER AGENT Gender Identity Not on file Sexual Orientation Not on file Last Filed Vital Signs Vital Sign Reading Time Taken Comments Blood Pressure 122/71 09/13/2024 3:03 PM BUYER AGENT Pulse 64 09/13/2024 3:03 PM BUYER AGENT Temperature 36.2 C (97.2 F) 09/13/2024 3:03 PM BUYER AGENT Respiratory Rate 16 09/13/2024 3:03 PM BUYER AGENT Oxygen Saturation 97% 09/13/2024 3:03 PM BUYER AGENT Inhaled Oxygen Concentration - - Weight 90.3 kg (199 lb) 09/12/2024 2:18 AM BUYER AGENT Height 157.5 cm (5' 2) 09/12/2024 2:18 AM BUYER AGENT Body Mass Index 36.4 09/12/2024 2:18 AM BUYER AGENT Plan of Treatment Not on file Procedures Procedure Name Priority Date/Time Associated Diagnosis Comments HEMOGLOBIN A1C Routine 09/12/2024 4:58 AM BUYER AGENT EGFR STAT 09/11/2024 11:22 PM BUYER AGENT from Last 3 Months or Most Recently Relevant to Health Maintenance Results * Hemoglobin A1c (09/12/2024 4:58 AM BUYER AGENT) Hgb A1C 5.4 4.0 - 5.6 % Estimated Average Glucose 108 mg/dL JUDITH THOMPSON ([place]) Comment: The ADA recommends reporting an estimated Average Glucose (eAG) with all Hemoglobin A1c results using the equation derived from a study of 507 normal and diabetic adults. Minority populations were underrepresented and children were not included. (Diabetes Care 31:7967-2596, 2008). The eAG is not equivalent to a fasting glucose. Blood 09/12/2024 4:58 AM BUYER AGENT 09/12/2024 5:07 AM BUYER AGENT Dionicio Levin MD LAB BLOOD ORDERABLES Final Resu lt JUDITH THOMPSON ([employer]) 1 [facility] Department of Laboratories [place], [place] [id number] * eGFR (09/11/2024 11:22 PM BUYER AGENT) eGFR 69 >=60 mL/min/1. 73 m2 Comment: [...] reviewed 2021. Blood 09/11/2024 11:2 2 PM BUYER AGENT 09/11/2024 11:22 PM BUYER AGENT Valdez Lee MD LAB BLOOD ORDERABLES Final R esult [facility] [employer]) 1 [facility] Department [place] [employer] [address] from Last 3 Months or Most Recently Relevant to Health Maintenance Insurance Advance Directives For more information, please contact: [phone] * LIMITED - No CPR (Latest Code [...] 1:26 AM 09/12/2024 5:23 AM Care Teams Piercing Specialist Relationship Specialty Start Date End Date Sadia Morris NP [address] [place] [phone] PCP - General Nurse Practitioner 02/28/24
--- OUTSIDE RECORDS SUMMARY | 2025-04-12 19:30 | XMS_ITS | Clinical Summary ---
Author Organization [facility] Address [address], [facility] [address] [place] [address] Phone Care Team Providers Care Director Global Strategic Publisher Sales Name Role Phone Ric Malik MD Unavailable [phone] Ric Malik MD Unavailable [phone] Natacha Hoyt MD Primary Care Provider Allergies Active Allergy Reactions Criticality Noted Date Comments Sumatriptan Other (see Comments) 03/15/2023 [place] Oil Hives,Nausea,Vomitin g,Other (see Comments) Low 04/11/2017 [...] Active Continuous Glucose Sensor (Dexcom G7 Sensor) [facility] [place] SENSOR TOPICALLY, CHANGE AND REPLACE [...] by Subcutaneous route. 4 Active nystatin (MYCOSTATIN) 364312 UNIT/GM Cream Apply. 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) 01/21/2025 1:00 PM CDT Office Visit [facility] [address] [phone] Anne Rodriguez, BALL POINTS INSPECTOR, MEDICAID BILLER Iron deficiency (Primary Dx); B12 deficiency; Thrombocytopenia [...] CDT Office Visit [facility] [place] [address] [place] [address] Ric Malik MD [address] [place] [address] Health Maintenance Due Date Last Done Comments [...] IRON 94 50 - 212 ug/dL [facility] UIBC 295 155 - 355 ug/dL [facility] TIBC 389 261 - 478 ug/dl [facility] % Saturation 24 20 - 50 % [facility] 01/21/2025 1:27 PM CDT Narrative [facility] - 01/21/2025 2:25 PM CDT Release to patient->Immediate Anne Rodriguez BALL POINTS INSPECTOR, MEDICAID BILLER LAB SEND OUTS Final Result [facility] [place] [address], * (ABNORMAL) CBC WITH AUTO DIFF [place] (01/21/2025 1:27 PM CDT) WBC 3.7(L) 4.0 - 10.0 10*3/uL [facility] HGB 11.8 11.2 - 15.7 g/dL [facility] HCT 36.2 34.1 - 44.9 % [facility] PLT 57(L) 163 - 369 10*3/uL [facility] MPV 10.0 9.4 - 12.4 fL [facility] RBC 4.47 3.93 - 5.22 10*6/uL [facility] MCV 81 79 - 95 fL [facility] MCH 26.4 25.6 - 32.2 pg [facility] MCHC 32.6 32.2 - 36.5 g/dL [facility] RDW 15.1(H) 11.6 - 14.4 % [facility] Neutrophils % 70.7(H) 36.0 - 66.0 % [facility] Lymphocytes % 22.0 19.0 - 40.0 % [facility] Monocytes % 4.6 4.1 - 12.1 % [facility] Eosinophils % 1.9 0.0 - 3.5 % [facility] Basophils % 0.5 0.0 - 1.0 % [facility] Absolute Neutrophils 2.6 1.4 - 6.6 10*3/uL [facility] Absolute Lymphocytes 0.8 0.8 - 4.0 10*3/uL [facility] Absolute Monocytes 0.2 0.2 - 1.2 10*3/uL [facility] Absolute Eosinophils 0.1 0.0 - 0.4 10*3/uL [facility] Absolute Basophils 0.0 0.0 - 0.1 10*3/uL [facility] 01/21/2025 1:27 PM CDT Anne Rodriguez APRN, MEDICAID BILLER LAB SEND OUTS Final Result [facility] [address] [place] [address], * VITAMIN B12 (01/21/2025 1:27 PM CDT) Vitamin B12 342 180 - 914 pg/mL [facility] Blood 01/21/2025 1:27 PM CDT Narrative [facility] - 01/22/2025 2:36 PM CDT Release to patient->Immediate Anne Rodriguez APRN, MEDICAID BILLER CHEMISTRY ORDERABLES Final Result [facility] [address] [place] [address], [place] [phone] * FOLIC ACID (FOLATE) (01/21/2025 1:27 PM CDT) Folate 14.72 >=5.90 ng/mL [facility] Blood 01/21/2025 1:27 PM CDT Narrative [facility] - 01/22/2025 2:36 PM CDT Release to patient->Immediate IS THE PATIENT REQUIRED TO BE FASTING FOR 12 HOURS?->No Anne Rodriguez APRN, MEDICAID BILLER CHEMISTRY ORDERABLES Final Result Performing Organization Address City/[facility]/ZIP Co de Phone Number [facility] Cancer [facility] [address] [place] [address], [place] [phone] * FERRITIN (01/21/2025 1:27 PM CDT) Ferritin 24 11 - 307 ng/mL [facility] Blood 01/21/2025 1:27 PM CDT Narrative [facility] - 01/22/2025 2:36 PM CDT Release to patient->Immediate Anne Rodriguez APRN, MEDICAID BILLER CHEMISTRY ORDERABLES Final Result Performing Organization Address City/[facility]/ZIP Co de Phone Number [facility] [place] [address], [place] [phone] * (ABNORMAL) CMP (COMPREHENSIVE METABOLIC PANEL) (01/21/2025 1:27 PM CDT) Glucose 183(H) 70 - 105 mg/dL [facility] Blood Urea Nitrogen 12 7 - 25 mg/dL [facility] Creatinine 0.8 0.6 - 1.2 mg/dL [facility] Sodium 142 136 - 145 mEq/L [facility] Potassium 3.3(L) 3.5 - 5.1 mEq/L [facility] Chloride 108(H) 98 - 107 mEq/L [facility] Bicarbonate 23 21 - 31 mEq/L [facility] Total Bilirubin 0.8 0.3 - 1.0 mg/dL [facility] Alk. Phosphatase 80 34 - 104 U/L [facility] Aspartate Aminotransferase 36 13 - 39 U/L [facility] Alanine Aminotransferase 34 7 - 52 U/L [facility] Total Protein 6.4 6.4 - 8.9 g/dL [facility] Albumin 4.1 3.5 - 5.7 g/dL [facility] Calcium 9.3 8.6 - 10.3 mg/dL [facility] Anion Gap 14.3 7.0 - 15.0 mEq/L [facility] Globulin 2.3 2.0 - 3.5 g/dL [facility] EGFR 92 >60 ml/min/1. 73m2 [facility] Comment: This eGFR is calculated using 2020 CKD-EPI Creatinine equation without race modifier based on the NKF-ASN task force recommendations Equation: tHRW=336*min(SCr/k,1)a*max(SCr/k,1)-1.200*0.9938Age*1.012 (if female), where SCr is serum creatinine, k is 0.7 for females and 0.9 for males, and a is -0.241 for females and -0.302 for males Blood 01/21/2025 1:27 PM CDT Narrative [facility] - 01/21/2025 2:25 PM CDT Release to patient->Immediate IS THE PATIENT REQUIRED TO BE FASTING FOR 8 HOURS?->No Anne Rodriguez BALL POINTS INSPECTOR, MEDICAID BILLER CHEMISTRY ORDERABLES Final Result [facility] [place] [address], from Last 3 Months Insurance MEDICAID [facility] PLAN MEDICAID [facility] Care Teams Director Global Strategic Publisher Sales Relationship Specialty Start Date End Date Natacha Hoyt MD [address] [place] [phone] PCP - General Family Medicine 08/29/23 Ric Malik MD [address] [place] [phone] Consulting Physician Oncology 05/22/22 Ric Malik MD [address] [place] [phone] Consulting Physician Oncology 08/28/23
--- OUTSIDE RECORDS SUMMARY | 2025-04-12 19:30 | XMS_ITS | Clinical Summary ---
Author Organization [facility] Address [address] [place] [address] Care Team Providers Care Police Department Secretary Name Role Phone Sadia Morris NP Primary Care Provider + Allergies Active Allergy Reactions Criticality Noted Date Comments Sumatriptan Muscle pain,Other (See comments) Medium [place] Oil Hives Medium 02/13/2022 Medications cyclobenzaprine (FLEXERIL) [...] on file Legal Sex Female 11:18 PM TITLE CURATOR Gender Identity Not on file Sexual Orientation Not on file Obstetrics History Last Filed Vital Signs Vital Sign Reading Time Taken Comments Blood Pressure 122/71 09/13/2024 3:03 PM TITLE CURATOR Pulse 64 09/13/2024 3:03 PM TITLE CURATOR Temperature 36.2 C (97.2 F) 09/13/2024 3:03 PM TITLE CURATOR Respiratory Rate 16 09/13/2024 3:03 PM TITLE CURATOR Oxygen Saturation 97% 09/13/2024 3:03 PM TITLE CURATOR Inhaled Oxygen Concentration - - Weight 90.3 kg (199 lb) 09/12/2024 2:18 AM TITLE CURATOR Height 157.5 cm (5' 2) 09/12/2024 2:18 AM TITLE CURATOR Body Mass Index 36.4 09/12/2024 2:18 AM TITLE CURATOR Plan of Treatment Health Maintenance Due Date [...] Comments HEMOGLOBIN A1C Routine 09/12/2024 4:58 AM TITLE CURATOR EGFR STAT 09/11/2024 11:22 PM TITLE CURATOR from Last 3 Months or Most Recently Relevant to Health Maintenance Results * Hemoglobin A1c (09/12/2024 4:58 AM TITLE CURATOR) Hgb A1C 5.4 4.0 - 5.6 % Estimated Average Glucose 108 mg/dL JUDITH THOMPSON ([place]) Comment: The ADA recommends reporting an estimated Average Glucose (eAG) with all Hemoglobin A1c results using the equation derived from a study of 507 normal and diabetic adults. Minority populations were underrepresented and children were not included. (Diabetes Care 31:6762-8450, 2008). The eAG is not equivalent to a fasting glucose. Blood 09/12/2024 4:58 AM TITLE CURATOR 09/12/2024 5:07 AM TITLE CURATOR us Dionicio Levin MD LAB BLOOD ORDERABLES Final Resu lt JUDITH THOMPSON ([place]) 1 [facility] Department [place] [address] * eGFR (09/11/2024 11:22 PM TITLE CURATOR) eGFR 69 >=60 mL/min/1. 73 m2 Comment: [...] reviewed 2021. Blood 09/11/2024 11:2 2 PM TITLE CURATOR 09/11/2024 11:22 PM TITLE CURATOR Valdez Lee MD LAB BLOOD ORDERABLES Final R esult [facility] ([place]) 1 [facility] Department [place] [address] from Last 3 Months or Most Recently Relevant to Health Maintenance Insurance [facility] Advance Directives For more information, please contact: [phone] * LIMITED - No CPR (Latest Code [...] 1:26 AM 09/12/2024 5:23 AM Care Teams Police Department Secretary Relationship Specialty Start Date End Date Sadia Morris NP [address] [place] [id number] PCP - General Nurse Practitioner 02/28/24
--- OUTSIDE RECORDS SUMMARY | 2025-04-12 19:30 | XMS_ITS | Clinical Summary ---
Author Organization [facility] Address [address] [place] [address] Care Team Providers Care Master Craftsman Name Role Phone Sadia Morris Primary Care Provider [phone] Sadia Morris Unavailable Source Comments [facility],non-owned Affiliates and Associated Physician Practices is amultiple site organization consisting of ambulatory clinics and hospital sitesin [place], [place], [place] and [place]. This disclosure is being madepursuant to the Care Everywhere program and may not contain all information available regarding this patient. Last updated 18.[facility] Allergies Active Allergy Reactions Criticality Noted Date Comments Sumatriptan Myalgias 03/15/2023 Sumatriptan Headache 10/07/2024 Okay Oil Rash,Itching,Skin Reactions Medium 08/01/2017 actual sunflowers themselves Okay Oil Nausea and/or Vomiting 10/07/2024 Medications * [...] as needed Active Glucagon 3 MG/DOSE POWD Venus 3 mg into the nose as needed [...] Sulfate (IRON PO) Active Continuous Glucose Sensor (Thinkful G7 Sensor) [facility] APPLY 1 SENSOR TOPICALLY, CHANGE AND REPLACE EVERY 10 DAYS. USE TO MONITOR GLUCOSE. 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); Liver lesion; Secondary esophageal varices with bleeding (HCC); Iron deficiency anemia due to chronic blood loss 02/01/2025 9:31 AM CDT Anesthesia Event [facility] ENDOSCOPY [address] [place] [address] Ninfa Cruz MD Dobbs, Kristin L, GUS-MITCHELL 02/01/2025 9:00 AM CDT - 02/01/2025 9:30 AM CDT Surgery [facility] ENDOSCOPY [address] [place] [address] Salomon Sapp MD EGD +/- banding w/ sekou 02/01/2025 7:50 AM CDT - 02/01/2025 10:34 AM CDT Hospital Encounter [facility] [address] [place] [address] Salomon Sapp MD Surgery General Discharge Disposition: Home or Self Care 02/01/2025 Travel 01/21/2025 Orders Only [facility] - GI [address] [facility], [place] [address] Salomon Sapp MD from Last 3 Months [...] and heating? Not hard at all 10/07/2024 [facility] [place] of Occupat ional Health - Occupational Stress [...] any time in the past 12 m [facility], were you homeless or living in a halfway (including now)? No 10/07/2024 Comments No Sex and Gender Information Value Date Recorded Sex Assigned at Female 04/21/2024 2:38 PM CDT Legal Sex Female 5:23 PM SPA MANAGER/ESTHETICIAN Gender Identity Female 04/21/2024 2:38 PM CDT [...] Description 05/03/2025 10:30 AM CDT Hospital Encounter [facility] ENDOSCOPY [address] [place] [phone] Salomon Sapp MD [address] [place] [address] [address] [address] Surgery General 05/03/2025 10:30 AM CDT - 05/03/2025 11:00 AM CDT Surgery [facility] ENDOSCOPY [address] [place] [phone] Salomon Sapp MD [address] [place] [address] [address] [address] EGD +/- banding w/ Sekou 05/07/2025 12:30 PM CDT Office Visit [facility] - [facility] [address] [place] [phone] Salomon Sapp MD [address] [place] [address] [address] [address] 09/24/2025 9:30 AM SPA MANAGER/ESTHETICIAN Appointment [facility] [address] [place] [phone] Salomon Sapp MD [address] [place] [address] [address] [address] 09/24/2025 10:30 AM SPA MANAGER/ESTHETICIAN Office Visit [facility] GI [address] [place] [phone] Salomon Sapp MD [address] [place] [address] [address] [place] [address] Scheduled Procedures Name Priority Associated Diagnoses Date/Ti [...] Management General On track( 025 9:52 AM SPA MANAGER/ESTHETICIAN) Mary Kay Andrade RN Note: Expected end [...] lesion EGD Routine 02/01/2025 9:33 AM CDT MA ED EGD FLEX TRANSORAL DX 02/01/2025 9:26 AM CDT Esophageal varices without bleeding, unspecified esophageal varices type (HCC) Special Needs EGD January Eric Received: Yesterday Makayla Pacheco, [facility] Schedulers - Endoscopy [facility], Please schedule an EGD for Dr. Sapp [...] CDT HEMOGLOBIN A1C Routine 10/08/2024 9:31 AM SPA MANAGER/ESTHETICIAN ENDOSCOPY, COLON, DIAGNOSTIC Routine 08/27/2022 12:28 PM SPA MANAGER/ESTHETICIAN HEPATITIS C ANTIBODY Routine 11/14/2017 10:15 AM SPA MANAGER/ESTHETICIAN from Last 3 Months or Most Recently [...] entire procedure. Procedure Code(s): --- Professional --- 63440, Esophagogastroduo denoscopy, flexible, transoral; with band ligation of esophageal/gastri c varices Diagnosis Code(s): --- Professional --- I85.00, Esophageal varices without bleeding K22.89, Other specified disease of esophagus K76.6, Portal hypertension K31.89, Other diseases of stomach and duodenum CPT copyright 2021 [employer]. All rights reserved. The codes documented in this report are preliminary and upon vertical contour band saw operator review may be revised to meet current compliance requirements. _ Salomon Sapp MD 02/01/2025 9:52:30 AM This report has been signed electronically. Note Initiated On: 02/01/2025 9:33 AM Number of Addenda: 0 [facility] [address] [place] [address] [facility] PROVATION 02/01/2025 9:33 AM CDT Salomon Sapp MD GI PROCEDURE ORDERABLES Edited Result - Final [facility] PROVATION * (ABNORMAL) GLUCOSE - POINT OF CARE (02/01/2025 8:55 AM CDT) Glucose WB/POC 155(H) 70 - 99 mg/dL 02/01/2025 11:56 AM CDT [facility] LABORATORY [facility] Specimen Type Cap Fingerstick 2024 11:56 AM CDT [facility] Blood BLOOD SPECIMEN / Unknown 02/01/2025 8:55 AM CDT 02/01/2025 11:56 AM CDT Salomon Sapp MD LAB - POINT OF CARE ORDERABLES Final Result Performing Organization Address [facility] Co de Phone Number [address] [address], [facility] [phone] * (ABNORMAL) PT-INR (01/21/2025 12:20 PM CDT) INR 1.2(H) [facility] Comment: Reference Range 0.9-1.1 Moderate-intensity Warfarin Therapy 2.0-3.0 Higher-intensity Warfarin Therapy 3.0-4.0 PT 12.6(H) 9.0 - 11.5 sec [facility] Comment: For additional information, please refer to http://education.[employer]faq/NWF345 (This link is being provided for informational/ educational purposes only.) REPORT COMMENT: NAME BRAND AN UPDATE OR CORRECTION HAS BEEN MADE TO NAME Test Performed at: [facility] [address] GISSEL OLIVER MD 01/21/2025 12:2 0 PM CDT 01/21/2025 12:21 PM CDT us Salomon Sapp MD LAB - COAGULATION ORDERABLES F inal Result Performing Organization Address [facility] de Phone Number [facility] [phone] [place] [address] * FERRITIN (01/21/2025 12:19 PM CDT) [facility] Ferritin 27 16 - 232 ng/mL [facility] Comment: REPORT COMMENT: NAME BRAND Test Performed at: [place] [address] GISSEL OLIVER MD 01/21/2025 12:1 9 PM CDT 01/21/2025 12:20 PM CDT us Salomon Sapp MD LAB - CHEMISTRY ORDERABLES Fin al Result Performing Organization Address [facility] de Phone Number [facility] [address] [place] [address] * (ABNORMAL) PLATELET ESTIMATION (01/21/2025 12:17 PM CDT) [facility] Platelet Estimation DECREASED (A) [facility] Comment: Test Performed at: [place] [address] GISSEL OLIVER MD 01/21/2025 12:1 7 PM CDT 01/21/2025 12:18 PM CDT us Salomon Sapp MD LAB - HEMATOLOGY ORDERABLES Fi nal Result Performing Organization Address [facility] de Phone Number [facility] [phone] [place] [address] * ALPHA FETOPROTEIN BLOOD TUMOR MARKER (01/21/2025 12:17 PM CDT) [facility] Alpha-Fetoprotei n Tumor Marker 2.5 ng/mL [facility] Comment: Reference Range: <6.1 The use of AFP as a tumor marker in females is not recommended. This test was performed using the Maryellen Mckinney chemiluminescent method. Values obtained from different assay methods cannot be used interchangeably. AFP levels, regardless of value, should not be interpreted as absolute evidence of the presence or absence of disease. REPORT COMMENT: NAME BRAND AN UPDATE OR CORRECTION HAS BEEN MADE TO NAME Test Performed at: [facility] [address] [place] [address] CRUZ KEARNEY 01/21/2025 12:1 7 PM CDT 01/21/2025 12:18 PM CDT Salomon Sapp MD LAB - CHEMISTRY ORDERABLES Fin al Result [facility] [address] [place] [address] * (ABNORMAL) CBC WITH DIFFERENTIAL (01/21/2025 12:17 [...] 0.5 % [facility] Comment: Test Performed at: [facility] [address] [facility] [place] [address] GISSEL OLIVER MD Blasts [facility] nRBC [facility] Comments [facility] Comment: Test Performed at: [employer] [address] [facility] [place] [address] GISSEL OLIVER MD 01/21/2025 12:1 7 PM CDT 01/21/2025 12:18 PM CDT Salomon Sapp MD LAB - HEMATOLOGY ORDERABLES Fi nal Result [facility] [address] [place] [address] * (ABNORMAL) COMPREHENSIVE METABOLIC PANEL (01/21/2025 12:17 [...] 29 U/L [facility] Comment: Test Performed at: [facility] [employer] [employer] [address] [place] [address] GISSEL OLIVER MD 01/21/2025 12:1 7 PM CDT 01/21/2025 12:18 PM CDT Salomon Sapp MD LAB - CHEMISTRY ORDERABLES Fin al Result Performing Organization Address City/[facility]/ZIP Co de Phone Number [facility] [address] [place] [address] * HEMOGLOBIN A1C (10/08/2024 9:31 AM SPA MANAGER/ESTHETICIAN) Hemoglobin A1c 5.3 <=5.6 % 10/08/2024 1:[address] [facility] Estimated Average Glucose 105 mg/dL 10/08/2024 1:40 PM [facility] Comment: HbA1c Interpretation: Normal : < 5.7% Pre-diabetes: 5.7-6.4% Diabetes: Equal to or greater than 6.5% Test results diagnostic of diabetes should be repeated for confirmation. Treatment target values recommended by ADA and other clinical organizations should be used to evaluate metabolic control in patients. Reference: [place] [employer], Standards of Care in Diabetes -2020 In patients 70 years and older consider HbA1c target range of 7.0-7.5% (Reference: Garcia Contreras, et al. JAMDA. 2012) The Sebia assay for the measurement of HbA1c is a National Glycohemoglobin Standardization Program (NGSP) certified method. Blood BLOOD SPECIMEN / Unknown Lab Venipuncture / Unknown 10/08/2024 9:31 AM SPA MANAGER/ESTHETICIAN 10/08/2024 9:59 AM SPA MANAGER/ESTHETICIAN Ron Dawson MD LAB - CHEMISTRY ORDERABLES Final Result [facility] [address] [place] [address], [facility] [phone] * ENDOSCOPY, COLON, DIAGNOSTIC (08/27/2022 12:28 PM SPA MANAGER/ESTHETICIAN) Report Endoscopy POC Endoscopy Department Report _ [...] entire procedure. Procedure Code(s): --- Professional --- 76294, Colonoscopy, flexible; with removal of tumor(s), polyp(s), or other lesion(s) by snare technique Diagnosis Code(s): --- Professional --- K63.5, Polyp of colon K64.4, Residual hemorrhoidal skin tags R10.84, Generalized abdominal pain K92.1, Melena (includes Hematochezia) CPT copyright 2019 [employer]. All rights reserved. The codes documented in this report are preliminary and upon vertical contour band saw operator review may be revised to meet current compliance requirements. Salomon Sapp MD 08/27/2022 1:27:31 PM This report has been signed electronically. Note Initiated On: 08/27/2022 12:28 PM Number of Addenda: [address] [address] [facility] PROVATION 08/27/2022 12:2 8 PM SPA MANAGER/ESTHETICIAN us Salomon Sapp MD GI PROCEDURE ORDERABLES Edited Result - Final [facility] PROVATION * HEPATITIS C ANTIBODY (11/14/2017 10:15 AM SPA MANAGER/ESTHETICIAN) Hepatitis C Antibody Non-react vishal Non-reac tive [facility] Comment: Hepatitis C Antibody [...] BLOOD SPECIMEN / Unknown 11/14/2017 10:15 AM SPA MANAGER/ESTHETICIAN 11/14/2017 11:03 AM SPA MANAGER/ESTHETICIAN Verito Mcclendon MD LAB - CHEMISTRY ORDERABLES Final Result [facility] [address] [place] [address] from Last 3 Months or Most Recently Relevant to [place] [address] [facility] SELF PAY NO INSURANCE Member Subscriber Plan / Payer (Ef fective for All Dates) Name:Beulah Garcia Member ID:Not on file Relation to Subscriber:Not on file Name:BEULAH GARCIA Subscriber ID:Not on file (Home) Address: [address] [place] [address] [place] [address] Payer ID:Not on file Group ID:Not on file Type:Self Pay Address: [place], [place] Advance Directives * Full Code (Latest Code Status on File) Date Activated Date Inactivated Comments 10/07/2024 6:10 PM 10/11/2024 5:22 PM Care Teams Master Craftsman Relationship Specialty Start Date End Date Sadia Morris [address] [place] [address] [place] [address] PCP - General 09/13/24 Sadia Morris [address] [place] [address] [address] [place] [address] 09/13/24
--- OUTSIDE RECORDS SUMMARY | 2025-04-12 19:30 | XMS_ITS | Encounter Summary ---
Author Organization [facility] Address [address] [facility] [place] [address] Care Team Providers Care Hot Stamp Operator Name Role Phone Sadia Morris Primary Care Provider [phone] Sadia Morris Primary Care Provider [phone] Sadia Morris Unavailable Reason for Visit * Reason Onset Date Comments MEDICATION REFILL 01/21/2024 Encounter Details Date Type Department Care Team (Late st Contact Info) Description 01/21/2024 Refill [facility] - GI [address] [place] [address], [facility] [place] [phone] Salomon Sapp MD [address] [place] [address] [place] [address] MEDICATION REFILL Social History Tobacco Use Types [...] PM CDT Legal Sex Female 5:23 PM DISTRICT RESOURCE OFFICER Gender Identity Female 04/21/2024 2:38 PM CDT [...] Description 05/03/2025 10:30 AM CDT Hospital Encounter [facility] ENDOSCOPY [address] [place] [address] Salomon Sapp MD [address] [place] [address] [address] [place] [address] Surgery General 05/03/2025 10:30 AM CDT - 05/03/2025 11:00 AM CDT Surgery [facility] ENDOSCOPY [address] [place] [address] Salomon Sapp MD [address] [place] [address] [address] [place] [address] EGD +/- banding w/ Sekou 05/07/2025 12:30 PM CDT Office Visit [facility] - GI [address] [place] [phone] Salomon Sapp MD [address] [place] [address] [address] [address] 09/24/2025 9:30 AM DISTRICT RESOURCE OFFICER Appointment [facility] [address] [place] [phone] Salomon Sapp MD [address] [place] [address] [address] [place] [address] 09/24/2025 10:30 AM DISTRICT RESOURCE OFFICER Office Visit [facility] - GI [address] [place] [phone] Salomon Sapp MD [address] [place] [address] [address] [place] [address] Scheduled Procedures Name Priority Associated Diagnoses Date/Ti me ESOPHAGOGASTRODUODENOSCOPY ( EGD) DIAGNOSTIC Esophageal varices without bleeding, unspecified esophageal varices type (HCC) 05/03/2025 10:30 AM CDT documented as of this encounter Goals Goal Patient Goal Type Associated Problems Recent Progress Patient-Stated? Author Medication Management General On track( 025 9:52 AM DISTRICT RESOURCE OFFICER) Mary Kay Andrade, RN Note: Expected end date: ongoing Interventions: Take all medications as prescribed Let your doctor know right away about any changes in your medications Make sure to request a refill of your medication at least one week prior to your last dose documented as of this encounter Visit Diagnoses Not on filedocumented in this encounter Care Teams Hot Stamp Operator Relationship Specialty Start Date End Date Sadia Morris [address] [place] [address] PCP - General 09/24/23 09/12/24 Sadia Morris [address] [place] [address] PCP - General 09/13/24 Sadia Morris [address] [facility] [address] [place] [address] 09/13/24 documented as of this encounter
--- NOTE | 2025-04-12 20:57 | ED.EYEPROB ---
HPI - Eye Problem General Chief complaint: Eye Problems Stated complaint: Feels something in eye Time Seen by Provider: 04/12/25 18:46 History of Present Illness HPI Narrative: 44-year-old female presenting with ocular complaints including possibly something in her left eye. Patient states that yesterday afternoon she started noticing that she had some abnormal vision or left eye where she describes an orange sensation when looking in her peripheral visual davalos that goes away with binocular vision. Feels like it was blurry but denies any trauma or injury. His a history of diabetes and gets regular checked up for diabetic retinopathy which he does not have. No history of glaucoma. No vision loss at all, no headache or vision deficits with normal visual acuity. Does wear corrective glasses but no ocular contact lenses or corrective/cosmetic lenses. She patient states that she feels like something is in her left eye and she notices some pressure in the left side. Related Data Home Medications ?Medication ?Instructions ?Recorded ?Confirmed ?Last Taken ?Type diphenhydramine HCl 25 mg capsule 25 mg PO TID PRN itching 06/01/22 03/16/25 03/03/25 History (Benadryl) buspirone 15 mg tablet 15 mg PO BID 10/25/22 03/16/25 03/04/25 History hydroxyzine pamoate 25 mg capsule 50 mg PO Q4H PRN Anxiety 07/25/23 03/16/25 Unknown History (Vistaril) prazosin 2 mg capsule 2 mg PO QHS 01/27/24 03/16/25 03/03/25 History cholecalciferol (vitamin D3) 50 50 mcg PO DAILY 07/24/24 03/16/25 03/04/25 History mcg (2,000 unit) capsule (Vitamin D3) ferrous sulfate 325 mg (65 mg 325 mg PO DAILY 07/24/24 03/16/25 03/04/25 History iron) tablet lidocaine 3 %-hydrocortisone 0.5 % 1 applic RECTAL BID PRN Pain 07/24/24 03/16/25 08/03/24 History rectal cream vitamin B complex 1 tablet PO DAILY 07/24/24 03/16/25 12/07/24 History cariprazine 6 mg capsule (Vraylar) 6 mg PO DAILY 09/21/24 03/16/25 03/04/25 History doxepin 10 mg capsule 25 mg PO DAILY 03/16/25 03/16/25 Unknown History Allergies Allergy/AdvReac Type Severity Reaction Status Date / Time sunflower oil Allergy Intermediate Hives Verified 04/12/25 19:18 sumatriptan (From Imitrex) AdvReac Intermediate Muscle Verified 04/12/25 19:18 Spasms PMFSH Past Medical History Medical History Type 2 diabetes mellitus (~2006) Rectal bleeding Left knee pain Medial meniscus tear Chronic nausea Gastroesophageal reflux disease Esophageal varices determined by endoscopy Irritable bowel syndrome with alternating bowel habits Portal hypertensive gastropathy Cirrhosis Bipolar 2 disorder Alopecia Cat scratch of forearm Body mass index (BMI) 35 or more (05/05/19) Vaginal yeast infection Type 2 diabetes mellitus with hyperglycemia Benign essential hypertension Abnormal vaginal bleeding Abnormal CT of brain Nausea & vomiting Hx of renal calculi (~07/2021) Portal hypertension (~07/2021) Chronic GERD Ganglion cyst Vitamin D deficiency Dyslipidemia BMI 40.0-44.9, adult Anxiety and depression HTN (hypertension) Type 2 diabetes mellitus with other circulatory complications (~2006) Avulsion fracture of right calcaneus with delayed healing (~2016) Other and unspecified hyperlipidemia (~2018) Hypertension complicating diabetes (~2013) Iron deficiency anemia due to chronic blood loss (~2016) outreach worker: Dr. Casillas: [facility] Microalbuminuria due to type 2 diabetes mellitus (~2017) Migraine without aura, not intractable, with status migrainosus (~1992) meds tried: midrin (helpful), imitrex (no help), zomig, topamax (helpful) Recurrent major depressive disorder in partial remission (~1992) Renal cyst, acquired (~2011) Hyperlipidemia associated with type 2 diabetes mellitus (~2018) Unspecified cirrhosis of liver (~2014) LOVE Surgical History Surgical History History of urethral stent (~07/2021) H/O: hysterectomy H/O left knee surgery Status post right foot surgery (~2017) History of cholecystectomy (~2017) Family History Family History Father Hypertension Cerebrovascular accident Family history of diabetes mellitus in first degree relative Diabetes mellitus Mother Hypertension Other Family history of Alzheimer's disease Family history of cardiovascular disease Family history of chronic obstructive pulmonary disease Family history of congestive heart failure Family history of hearing loss Family history of migraine headaches Family history of obesity Social History Social History Social History: , no children. Unemployed. Caffeine-rarely Smoking packs per day: 1 Smoking cigarettes per day: 20.0 Years smoked: 13 Smoking pack-years: 13.00 Smoking status: Current every day smoker Tobacco type: e-cigarettes/vaping Smoking end date: 10/14/06 Alcohol intake: former Drinks per week: 1 Substance use: never Substance use type: does not use Last use: Quit 1996 Do You Feel Safe in your Home?: Yes Lack of Transportation: No Lack of Food: Never True Current Housing: I Have Housing Concerned About Future Housing: No Difficulty Paying Gas/Electric Bills: No Difficulty Paying for Meds: No Currently Unemployed: No Education: Associate Degree Difficulty w/ Childcare or Family Care: No Living arrangements: with family Additional living arrangements comments: lives with soon to be x- Occupation/Education: occupation Gender identity (if verbalized by the patient): Female Spiritual care concerns: No Agree to blood products: Yes Course Vital Signs Vital signs: Vital Signs Temperature 36.7 C 04/12/25 16:43 Pulse Rate 89 04/12/25 16:43 Respiratory Rate 18 04/12/25 16:43 Blood Pressure 84/58 L 04/12/25 16:43 Pulse Oximetry 100 04/12/25 16:43 Oxygen Delivery Room Air 04/12/25 16:43 Temperature 36.6 C 04/12/25 19:16 Pulse Rate 79 04/12/25 19:16 Respiratory Rate 16 04/12/25 19:16 Blood Pressure 102/59 L 04/12/25 19:16 Pulse Oximetry 97 04/12/25 19:16 Oxygen Delivery Room Air 04/12/25 19:16 MDM - Eye Problem MDM Narrative Medical decision making narrative: 44-year-old female presenting with ocular complaints including possibly something in her left eye. Patient states that yesterday afternoon she started noticing that she had some abnormal vision or left eye where she describes an orange sensation when looking in her peripheral visual davalos that goes away with binocular vision. Feels like it was blurry but denies any trauma or injury. His a history of diabetes and gets regular checked up for diabetic retinopathy which he does not have. No history of glaucoma. No vision loss at all, no headache or vision deficits with normal visual acuity. Does wear corrective glasses but no ocular contact lenses or corrective/cosmetic lenses. She patient states that she feels like something is in her left eye and she notices some pressure in the left side. Patient's examination is unremarkable 1 she has normal vital signs. She has normal visual acuity, intra-ocular pressure is 17 in the right eye, 16 in left eye, fluorescein dye stain of the eye does not reveal any retained foreign body, corneal abrasions, Jim sign or any signs of trauma/retained foreign body. She did have relief of her pain/pressure in the eye with tetracaine drops however which is reassuring. CT of the orbits with contrast was ordered also for any other possible further evaluation to see if there is something else concern but overall she has normal vision and unremarkable pressure assessment and already has scheduled ophthalmology follow-up this week to address this. Patient can be safely discharged home after remainder of workup and patient felt comfortable with this plan. CT report shows unremarkable bilateral orbits: No soft tissue swelling. The orbits are symmetric. The lenses are in normal position. No abnormal vitreous density. Symmetric bilateral optic nerves, without enhancement. Normal appearing bilateral ophthalmic arteries and veins. Normal-appearing extraocular muscles No abnormal enhancing lesions detected. Normal preseptal and orbital fat. The aerated spaces are clear. No acute osseous finding. Medical Records Attestation: I reviewed the patient's medical records. Lab Data Attestation: I reviewed the patient's lab results. 04/12/25 21:31 Labs: Lab Results 04/12/25 Range/Units 21:31 Creatinine 1.10 (0.7-1.2) mg/dL Estim Creat Clear Calc 52 ml/min Estimated GFR 53 L (59 - ) Imaging Data Attestation: I personally reviewed and interpreted this imaging study as follows: Discharge Plan Discharge Clinical Impression: Visual color changes Patient Disposition: Home Condition: Stable Instructions: Antibiotic Form Additional Instructions: Your CT scan of the orbits does not show any acute abnormalities and your ocular examination at bedside is largely unrevealing with normal ocular pressures and normal fluoroscopy. Next steps are to call and follow-up with your dam tender assistant which it sounds like you have an appointment scheduled. Return with any new or worsening concerns at any time such as vision loss, worsening pain, intractable headache, or any other emergent concerns. Patient Language: [place] Prescriptions: No Action fluticasone propionate [Flonase Allergy Relief] 50 mcg/actuation spray,suspension 1 spray intranasal DAILY Qty: 16 0RF Rx Instructions: administer into each nostril (DME) OneTouch Verio test strips Strip See Rx Instructions .Route Qty: 100 11RF Rx Instructions: Monitor glucose 3-4 times a day prazosin 2 mg capsule 2 mg PO QHS doxepin 10 mg capsule 25 mg PO DAILY (DME) Dexcom G7 Sensor Device See Rx Instructions .ROUTE .MEDSUPPLY Qty: 9 3RF Rx Instructions: Use to monitor glcuose Vraylar 6 mg capsule 6 mg PO DAILY Baqsimi 3 mg/actuation spray,non-aerosol 3 mg intranasal ONCE PRN (Reason: hypoglycemia) Qty: 1 0RF Rx Instructions: as a single dose buspirone 15 mg tablet 15 mg PO BID carvedilol 3.125 mg tablet 3.125 mg PO Q12H Qty: 180 1RF Rx Instructions: must administer with a meal/food Mounjaro 12.5 mg/0.5 mL pen injector 12.5 mg subcut WEEKLY Qty: 6 1RF diphenhydramine HCl [Benadryl] 25 mg Capsule 25 mg PO TID PRN (Reason: itching) lidocaine HCl-hydrocortison ac 3-0.5 % cream 1 applic RECTAL BID PRN (Reason: Pain) ferrous sulfate 325 mg (65 mg iron) Tablet 325 mg PO DAILY vitamin B complex Tablet 1 tablet PO DAILY cholecalciferol (vitamin D3) [Vitamin D3] 50 mcg (2,000 unit) Capsule 50 mcg PO DAILY meclizine 25 mg tablet 25 mg PO BID PRN (Reason: dizziness) 7 Days Qty: 14 0RF duloxetine 30 mg capsule,delayed release(DR/EC) 30 mg PO BID Qty: 180 1RF (DME) pen needle, diabetic [BD Ultra-Fine Shantelle Pen Needle] 32 gauge x 5/32 needle See Rx Instructions .ROUTE .MEDSUPPLY Qty: 300 1RF Rx Instructions: three times daily hydroxyzine pamoate [Vistaril] 25 mg capsule 50 mg PO Q4H PRN (Reason: Anxiety) albuterol sulfate 90 mcg/actuation HFA aerosol inhaler 1 puff INHALATION Q4H PRN (Reason: shortness of breath or wheezing) Qty: 6.7 1RF dexlansoprazole 60 mg capsule,biphase delayed releas 60 mg PO DAILY 30 Days Qty: 30 12RF cyclobenzaprine 10 mg tablet 10 mg PO TID PRN (Reason: muscle spasm) Qty: 60 1RF rizatriptan 5 mg tablet See Rx Instructions PO .COMPLEX PRN (Reason: Migraine Headache) Qty: 10 5RF Rx Instructions: take 1 tab at onset of headache; if no relief may repeat 1 tab after at least 2 hrs; max = 3 tabs/24 hr PO folic acid 1 mg tablet 1 mg PO DAILY Qty: 90 1RF atorvastatin 80 mg tablet 80 mg PO QHS Qty: 90 1RF Jardiance 25 mg tablet 25 mg PO DAILY Qty: 90 1RF lisinopril 2.5 mg tablet See Rx Instructions .ROUTE .COMPLEX Qty: 90 0RF Dose Instruction: Take 1 tablet by mouth once daily Rx Instructions: Take 1 tablet by mouth once daily pantoprazole 40 mg tablet,delayed release (DR/EC) See Rx Instructions .ROUTE .COMPLEX Qty: 90 1RF Dose Instruction: TAKE 1 TABLET BY MOUTH IN THE MORNING Rx Instructions: TAKE 1 TABLET BY MOUTH IN THE MORNING topiramate 200 mg tablet See Rx Instructions .ROUTE .COMPLEX Qty: 90 1RF Dose Instruction: Take 1 tablet by mouth once daily Rx Instructions: Take 1 tablet by mouth once daily Follow-up/Referrals: Karin Hoyt MD [Primary Care Provider] - Time of Disposition: 22:11
[2025-04-12 21:33] LABS: Estimated CRCL calculation 52 ml/min; Estimated Glomerular Filt Rate 53
[2025-04-12 22:23] VITALS: BP 106/62; PULSE 75; RESP 17; TEMP 36.6; O2SAT 97
== END 2025-04-12 22:25 | disposition home or self-care (01) ==
PROVIDERS: Emergency Provider Student in an Organized Health Care Education/Training Program; PCP Family Medicine
DX: H53.8 Other visual disturbances (principal); F17.290 Nicotine dependence, other tobacco product, uncomplicated; E11.9 Type 2 diabetes mellitus without complications; K21.9 Gastro-esophageal reflux disease without esophagitis; I10 Essential (primary) hypertension; F41.9 Anxiety disorder, unspecified; F32.A Depression, unspecified; E78.5 Hyperlipidemia, unspecified; K75.81 Nonalcoholic steatohepatitis (NASH)
CPT/HCPCS: 70481; 99284; Q9967

== ENCOUNTER 2025-04-24 20:26 | Emergency (ER) | payer OTHER, SELFPAY ==
[2025-04-24] VITALS (8 sets, daily range): BP systolic 89–105; BP diastolic 56–72; PULSE 65–87; RESP 17–19; TEMP 36.4; O2SAT 99–100
--- NOTE | ~2025-04-24 | CT_ITS ---
CT of the Abdomen and Pelvis: Indication: Abdominal pain Technique: 2.5 mm axial scans were obtained through the abdomen and pelvis following intravenous adm inistration of 100 cc of Omnipaque 350. Dose reduction technique was used on this scan by utilizing a utomated exposure control and iterative reconstruction technique. The dose-length product (DLP) was 4 26.00 mGy-cm. COMPARISON: 03/04/2025 Findings: Scans through the lung bases are unremarkable. Cirrhotic morphology of liver is present, with diffuse nodular contour and mild diffuse fatty infiltr ation. Cholecystectomy clips are present. Small simple right hepatic cyst noted. Spleen is enlarged, measuring 18.8 cm in size. 9 mm nonobstructing renal stone present. 2 mm nonobstructing left renal st one present. Pancreas and adrenal glands are within normal limits. No evidence of aortic aneurysm. No lymphadenopathy. Possible mild wall thickening of the ascending colon. No bowel obstruction. Images through the pelvis were performed. Urinary bladder unremarkable. No pelvic mass seen. Small am ount of abdominopelvic ascites present. Impression: Cirrhotic liver with associated splenomegaly and small amount of abdominopelvic ascites. Mild wall thickening of descending colon. Correlate for infectious/inflammatory colitis versus reacti ve wall thickening due to the presence of ascites. Bilateral nonobstructing nephrolithiasis, as detailed above. Reviewed, dictated and finalized at [facility]. Impression: Cirrhotic liver with associated splenomegaly and small amount of abdominopelvic ascites. Mild wall thickening of descending colon. Correlate for infectious/inflammatory colitis versus reactive wall thickening due to the presence of ascites. Bilateral nonobstructing nephrolithiasis, as detailed above.
--- OUTSIDE RECORDS SUMMARY | 2025-04-24 20:28 | XMS_ITS | Patient Health Record ---
Author Organization [facility] Address [address] [place] [address] Care Team Providers Care Customer Liaison Name Role Phone Allie Lopez Primary Care Provider Allergies Allergen (clinical drug ingredient) Drug/Non Drug Allergy documented on EMR Reaction Allergy Type Onset Date Status [place] Oil sunflower oil (uncoded) rash Allergy Active [...] Status Risk Notes Problem Generalized anxiety disorder (08352014) Generalized anxiety disorder (F41.1) Active confirmed Problem Bipolar 1 disorder (139011088) Bipolar 1 disorder (F31.9) Active confirmed Problem Tobacco user (243691135) Nicotine addiction (F17.200) Active confirmed Encounters Encounter Location Date Provider Diagnosis [facility] [address], [place] [address] 06/18/2024 Allie Newell Bipolar 1 disorder F31.9 [facility] [address], [place] [address] 08/18/2024 Allie Newell Bipolar 1 disorder F31.9 and Nicotine addiction F17.200 [facility] [address], [place] [address] 09/29/2024 Allie Newell Bipolar 1 disorder F31.9 and Nicotine addiction F17.200 [facility] [address] [address] 12/01/2024 Allie Newell Bipolar 1 disorder F31.9 [facility] [address] [place] [address] 02/23/2025 Allie Newell Bipolar 1 disorder F31.9 and Nicotine addiction F17.[address] [address] 05/08/2024 Allie John Bipolar 1 disorder F31.9 [facility] [address] [place] [address] 07/28/2024 Allie Lopez [facility] [address] [place] [address] 10/12/2024 Allie John Assessments Encounter Date Diagnosis (ICD Code) Assessment Notes Treatment Notes Treatment Clinical Notes Section Notes 05/08/2024 Bipolar 1 disorder (ICD-10 - F31.9) [...] F17.200) 09/29/2024 Nicotine addiction (ICD-10 - F17.200) 06/18/2024 Other hold trazadone and try doxepin [...] in mood or behavior. Confirmed knowledge of [facility] hotline [phone] for clients 20 and under and [place] Crisis line [phone] and awareness of 018. SSRI Discussed possible side effects: GI upset, headache, decreased libido/anorgasmia, weight gain, signs of serotonin syndrome and risk of activation to suicidality Plan Of Treatment No Information Insurance Providers Payer Name Payer Address Payer Phone Subscriber Number Group Number Insured Name Patient Relationship to Insured Coverage Start Date Coverage End Date [facility] Attn Claims Department [address] [place] [address] [phone] [id number] Beulah Fung Self - patient is the insured 3 [facility] Attn Claims Department [address] [place] [address] [phone] [id number] Beulah Fung Self - patient is the insured 3 Medical (General) History Medical History History ICD Code type II diabetes hypertension nephrolithiasis LOVE migraine headache Surgical History Surgery Date(Month/Year) hysterectomy due to fibroids 2017 cholecystectomy carpal/cubital tunnel Hospitalization History Reason Date(Month/Year) suicide attempt by self harm and attempt ed overdose 10/02
--- OUTSIDE RECORDS SUMMARY | 2025-04-24 20:28 | XMS_ITS | Encounter Summary ---
Author Organization [facility] Address [address] [place] [address] Care Team Providers Care Milieu Coordinator Name Role Phone Sadia Morris Primary Care Provider [phone] Sadia Morris Primary Care Provider [phone] Sadia Morris Unavailable Reason for Visit * Reason Onset Date Comments MEDICATION REFILL 01/21/2024 Encounter Details Date Type Department Care Team (Late st Contact Info) Description 01/21/2024 Refill [facility] - [facility] [address] [place] [address], [facility] [place] [phone] Salomon Sapp MD [address] [place] [address] [place] [address] MEDICATION REFILL Social History Tobacco Use Types [...] PM CDT Legal Sex Female 5:23 PM 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 Gender Identity Female 04/21/2024 2:38 PM CDT [...] Description 05/03/2025 10:30 AM CDT Hospital Encounter [facility] [address] [place] [address] Salomon Sapp MD [address] [place] [address] [address] [place] [address] Surgery General 05/03/2025 10:30 AM CDT - 05/03/2025 11:00 AM CDT Surgery [facility] [address] [place] [address] Salomon Sapp MD [address] [place] [address] [address] [place] [address] EGD +/- banding w/ Sekou 05/07/2025 12:30 PM CDT Office Visit [facility] - GI [address] [place] [phone] Salomon Sapp MD [address] [place] [address] [address] [place] [address] 09/24/2025 9:30 AM COLORED LEATHER SETTER Appointment [facility] [address] [place] [phone] Salomon Sapp MD [address] [place] [address] [address] [place] [address] 09/24/2025 10:30 AM COLORED LEATHER SETTER Office Visit [facility] [address] [place] [phone] Salomon Sapp MD [address] [place] [address] [address] [place] [address] Scheduled Procedures Name Priority Associated Diagnoses Date/Ti me ESOPHAGOGASTRODUODENOSCOPY ( EGD) DIAGNOSTIC Esophageal varices without bleeding, unspecified esophageal varices type (HCC) 05/03/2025 10:30 AM CDT documented as of this encounter Goals Goal Patient Goal Type Associated Problems Recent Progress Patient-Stated? Author Medication Management General On track( 025 9:52 AM COLORED LEATHER SETTER) Mary Kay Andrade, RN Note: Expected end date: ongoing Interventions: Take all medications as prescribed Let your doctor know right away about any changes in your medications Make sure to request a refill of your medication at least one week prior to your last dose documented as of this encounter Visit Diagnoses Not on filedocumented in this encounter Care Teams Milieu Coordinator Relationship Specialty Start Date End Date Sadia Morris [address] [place] [address] PCP - General 09/24/23 09/12/24 Sadia Morris [address] [place] [address] PCP - General 09/13/24 Sadia Morris [address] [facility] [address] [place] [address] 09/13/24 documented as of this encounter
--- OUTSIDE RECORDS SUMMARY | 2025-04-24 20:28 | XMS_ITS | Referral Summary ---
Author Organization [facility] Address [address] [place] [address] Care Team Providers Care Landscape Foreman Name Role Phone Sadia Morris NP Primary Care Provider + Allergies Active Allergy Reactions Criticality Noted Date Comments Sumatriptan Muscle pain,Other (See comments) Medium [place] Oil Hives Medium 02/13/2022 Medications cyclobenzaprine (FLEXERIL) [...] on file Legal Sex Female 11:18 PM STUD SETTER Gender Identity Not on file Sexual Orientation Not on file Last Filed Vital Signs Vital Sign Reading Time Taken Comments Blood Pressure 122/71 09/13/2024 3:03 PM STUD SETTER Pulse 64 09/13/2024 3:03 PM STUD SETTER Temperature 36.2 C (97.2 F) 09/13/2024 3:03 PM STUD SETTER Respiratory Rate 16 09/13/2024 3:03 PM STUD SETTER Oxygen Saturation 97% 09/13/2024 3:03 PM STUD SETTER Inhaled Oxygen Concentration - - Weight 90.3 kg (199 lb) 09/12/2024 2:18 AM STUD SETTER Height 157.5 cm (5' 2) 09/12/2024 2:18 AM STUD SETTER Body Mass Index 36.4 09/12/2024 2:18 AM STUD SETTER Plan of Treatment Not on file Procedures Procedure Name Priority Date/Time Associated Diagnosis Comments HEMOGLOBIN A1C Routine 09/12/2024 4:58 AM STUD SETTER EGFR STAT 09/11/2024 11:22 PM STUD SETTER from Last 3 Months or Most Recently Relevant to Health Maintenance Results * Hemoglobin A1c (09/12/2024 4:58 AM STUD SETTER) Hgb A1C 5.4 4.0 - 5.6 % Estimated Average Glucose 108 mg/dL JUDITH THOMPSON ([place]) Comment: The ADA recommends reporting an estimated Average Glucose (eAG) with all Hemoglobin A1c results using the equation derived from a study of 507 normal and diabetic adults. Minority populations were underrepresented and children were not included. (Diabetes Care 31:2053-5656, 2008). The eAG is not equivalent to a fasting glucose. Blood 09/12/2024 4:58 AM STUD SETTER 09/12/2024 5:07 AM STUD SETTER Dionicio Levin MD LAB BLOOD ORDERABLES Final Resu lt JUDITH THOMPSON ([place]) [address] [facility] Department of Laboratories [place], [place] [id number] * eGFR (09/11/2024 11:22 PM STUD SETTER) eGFR 69 >=60 mL/min/1. 73 m2 Comment: [...] reviewed 2021. Blood 09/11/2024 11:2 2 PM STUD SETTER 09/11/2024 11:22 PM STUD SETTER Valdez Lee MD LAB BLOOD ORDERABLES Final R esult [facility] [place]) [address] [facility] [place] [address] from Last 3 Months or Most Recently Relevant to Health Maintenance Insurance Advance Directives For more information, please contact: [phone] * LIMITED - No CPR (Latest Code [...] 1:26 AM 09/12/2024 5:23 AM Care Teams Landscape Foreman Relationship Specialty Start Date End Date Sadia Morris NP [address] [facility]NOTE 2[facility] [address] CLARK [address] [place] [id number] PCP - General Nurse Practitioner 02/28/24
--- OUTSIDE RECORDS SUMMARY | 2025-04-24 20:28 | XMS_ITS | Clinical Summary ---
Author Organization [facility] Address [address] [place] [address] Care Team Providers Care Industrial Maintenance Manager Name Role Phone Sadia Morris Primary Care Provider [phone] Sadia Morris Unavailable Source Comments [facility],non-owned Affiliates and Associated Physician Practices is amultiple site organization consisting of ambulatory clinics and hospital sitesin [place], [place], [place]. This disclosure is being madepursuant to the Care Everywhere program and may not contain all information available regarding this patient. Last updated 18.[facility] Allergies Active Allergy Reactions Criticality Noted Date Comments Sumatriptan Myalgias 03/15/2023 Sumatriptan Headache 10/07/2024 [place] Oil Rash,Itching,Skin Reactions Medium 08/01/2017 actual sunflowers themselves [place] Oil Nausea and/or Vomiting 10/07/2024 Medications * [...] as needed Active Glucagon 3 MG/DOSE POWD [place] 3 mg into the nose as needed [...] Sulfate (IRON PO) Active Continuous Glucose Sensor (SkyCache G7 Sensor) [facility] APPLY 1 SENSOR TOPICALLY, CHANGE AND REPLACE EVERY 10 DAYS. USE TO MONITOR GLUCOSE. 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); Secondary esophageal varices without bleeding (HCC) 03/22/2025 9:22 AM CDT - 03/22/2025 11:59 PM CDT Hospital Encounter [facility] MRI [address] [place] [address] Salomon Sapp MD Discharge Disposition: Home or Self Care 03/22/2025 Travel 03/05/2025 Orders Only [facility] [address] [place] [phone] Salomon Sapp MD 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); Liver lesion; Secondary esophageal varices with bleeding (HCC); Iron deficiency anemia due to chronic blood loss 02/01/2025 9:31 AM CDT Anesthesia Event [facility] [address] [place] [address] Ninfa Cruz MD Dobbs, Romina Adams, INJECTION MOLDING MACHINE OPERATOR-BELL STAFF 02/01/2025 9:00 AM CDT - 02/01/2025 9:30 AM CDT Surgery [facility] [address] [place] [address] Salomon Sapp MD EGD +/- banding w/ sekou 02/01/2025 7:50 AM CDT - 02/01/2025 10:34 AM CDT Hospital Encounter [facility] [address] [place] [address] Salomon Sapp MD Surgery General Discharge Disposition: Home or Self Care 02/01/2025 Travel from Last 3 Months Immunizations Immunization [...] and heating? Not hard at all 10/07/2024 [facility] [place] of Occupat ional Health - Occupational Stress [...] any time in the past [facility], were you homeless or living in a alf (including now)? No 10/07/2024 Comments No Sex and Gender Information Value Date Recorded Sex Assigned at Female 04/21/2024 2:38 PM CDT Legal Sex Female 5:23 PM PHOTOGRAPHIC AIDE Gender Identity Female 04/21/2024 2:38 PM CDT [...] Description 05/03/2025 10:30 AM CDT Hospital Encounter [facility] [address] [place] [address] Salomon Sapp MD [address] [place] [address] [address] [place] [address] Surgery General 05/03/2025 10:30 AM CDT - 05/03/2025 11:00 AM CDT Surgery [facility] [address] [place] [phone] Salomon Sapp MD [address] [place] [address] [address] [place] [address] EGD +/- banding w/ Sekou 05/07/2025 12:30 PM CDT Office Visit [facility] [address] [place] [phone] Salomon Sapp MD [address] [place] [address] [address] [place] [address] 09/24/2025 9:30 AM PHOTOGRAPHIC AIDE Appointment [facility] [address] [place] [phone] Salomon Sapp MD [address] [place] [address] [address] [place] [address] 09/24/2025 10:30 AM PHOTOGRAPHIC AIDE Office Visit [facility] [address] [place] [phone] Salomon Sapp MD [address] [place] [address] [address] [place] [address] Scheduled Procedures Name Priority Associated Diagnoses Date/Ti [...] WITH MONOFILAMENT 12/04/2018 COVID-19 VACCINE (1 - ) 06/14/2024 DIABETES - URINE PROTEIN SCREENING 10/14/2024 DIABETES-HGB A1C 04/08/2025 10/08/2024, , 06/02/2021, Additional history exists INFLUENZA VACCINE (#1) 2025 07/15/2020, 2018 DIABETES-SERUM CREATININE 01/21/20262024, 01/21/2025, 10/11/2024, Additional history [...] Management General On track( 025 9:52 AM PHOTOGRAPHIC AIDE) Mary Kay Andrade RN Note: Expected end [...] lesion EGD Routine 02/01/2025 9:33 AM CDT [place] ED EGD FLEX TRANSORAL DX 02/01/2025 9:26 AM CDT Esophageal varices without bleeding, unspecified esophageal varices type (HCC) Special Needs EGD January Eric Received: Yesterday Makayla Pacheco RN [facility] Schedulers - Endoscopy [facility], Please schedule an EGD for Dr. Sapp in January. Makayla Garcia Received Date Received Time Dec 15, 2024 4:51 PM GLUCOSE - POINT OF CARE Routine 02/01/2025 8:55 AM CDT COMPREHENSIVE METABOLIC PANEL 01/21/2025 12:17 PM CDT HEMOGLOBIN A1C Routine 10/08/2024 9:31 AM PHOTOGRAPHIC AIDE ENDOSCOPY, COLON, DIAGNOSTIC Routine 08/27/2022 12:28 PM PHOTOGRAPHIC AIDE HEPATITIS C ANTIBODY Routine 11/14/2017 10:15 AM PHOTOGRAPHIC AIDE from Last 3 Months or Most Recently [...] Dennis Winters MD on 03/23/2025 1:56 PM Salomon Sapp MD MR ORDERABLES Final Result [...] entire procedure. Procedure Code(s): --- Professional --- 69005, Esophagogastroduo denoscopy, flexible, transoral; with band ligation of esophageal/gastri c varices Diagnosis Code(s): --- Professional --- I85.00, Esophageal varices without bleeding K22.89, Other specified disease of esophagus K76.6, Portal hypertension K31.89, Other diseases of stomach and duodenum CPT copyright 2021 [employer]. All rights reserved. The codes documented in this report are preliminary and upon automation clerk review may be revised to meet current compliance requirements. _ Salomon Sapp MD 02/01/2025 9:52:30 AM This report has been signed electronically. Note Initiated On: 02/01/2025 9:33 AM Number of Addenda: [address] [id number] [facility] 02/01/2025 9:33 AM CDT Salomon Sapp MD GI PROCEDURE ORDERABLES Edited Result - Final [facility] * (ABNORMAL) GLUCOSE - POINT OF CARE (02/01/2025 8:55 AM CDT) [facility] Glucose WB/POC 155(H) 70 - 99 mg/dL 02/01/2025 11:56 AM CDT [facility] Specimen Type Cap Fingerstick 2024 11:[address] [facility] Blood BLOOD SPECIMEN / Unknown 02/01/2025 8:55 AM CDT 02/01/2025 11:56 AM CDT Salomon Sapp MD LAB - POINT OF CARE ORDERABLES Final Result [facility] [address] [place] [address], [facility] [phone] * (ABNORMAL) COMPREHENSIVE METABOLIC PANEL (01/21/2025 12:17 PM CDT) [facility] Glucose 184(H) 65 - 99 mg/dL [facility] [...] 29 U/L [facility] Comment: Test Performed at: [facility] [address] [place] [address] GISSEL OLIVER MD 01/21/2025 12:1 7 PM CDT 01/21/2025 12:18 PM CDT Salomon Sapp MD LAB - CHEMISTRY ORDERABLES Fin al Result Performing Organization Address City/[facility]/ZIP Co de Phone Number [address] [address] * HEMOGLOBIN A1C (10/08/2024 9:31 AM PHOTOGRAPHIC AIDE) Hemoglobin A1c 5.3 <=5.6 % 10/08/2024 1:40 PM PHOTOGRAPHIC AIDE [facility] Estimated Average Glucose 105 mg/dL 10/08/2024 1:40 PM PHOTOGRAPHIC AIDE [facility] Comment: HbA1c Interpretation: Normal : < 5.7% Pre-diabetes: 5.7-6.4% Diabetes: Equal to or greater than 6.5% Test results diagnostic of diabetes should be repeated for confirmation. Treatment target values recommended by ADA and other clinical organizations should be used to evaluate metabolic control in patients. Reference: [place] [employer], Standards of Care in Diabetes -2020 In patients 70 years and older consider HbA1c target range of 7.0-7.5% (Reference: Garcia Contreras et al. JAMDA. 2012) The Sebia assay for the measurement of HbA1c is a National Glycohemoglobin Standardization Program (NGSP) certified method. Blood BLOOD SPECIMEN / Unknown Lab Venipuncture / Unknown 10/08/2024 9:31 AM PHOTOGRAPHIC AIDE 10/08/2024 9:59 AM PHOTOGRAPHIC AIDE us Ron Dawson MD LAB - CHEMISTRY ORDERABLES Final Result [facility] [address] [place] [address], [facility] [phone] * ENDOSCOPY, COLON, DIAGNOSTIC (08/27/2022 12:28 PM PHOTOGRAPHIC AIDE) Report Endoscopy POC Endoscopy Department Report _ [...] entire procedure. Procedure Code(s): --- Professional --- 19527, Colonoscopy, flexible; with removal of tumor(s), polyp(s), or other lesion(s) by snare technique Diagnosis Code(s): --- Professional --- K63.5, Polyp of colon K64.4, Residual hemorrhoidal skin tags R10.84, Generalized abdominal pain K92.1, Melena (includes Hematochezia) CPT copyright 2019 [employer]. All rights reserved. The codes documented in this report are preliminary and upon automation clerk review may be revised to meet current compliance requirements. Salomon Sapp MD 08/27/2022 1:27:31 PM This report has been signed electronically. Note Initiated On: 08/27/2022 12:28 PM Number of Addenda: [address] [phone] [facility] 08/27/2022 12:2 8 PM PHOTOGRAPHIC AIDE Salomon Sapp MD GI PROCEDURE ORDERABLES Edited Result - Final [facility] * HEPATITIS C ANTIBODY (11/14/2017 10:15 AM PHOTOGRAPHIC AIDE) Hepatitis C Antibody Non-react vishal Non-reac tive [facility] Comment: Hepatitis C Antibody screen indicates no serologic evidence of past or current infection with Hepatitis C Virus. Patients with unexplained liver disease who are immunocompromised or suspected of having acute Hepatitis C infection may benefit from Nucleic Acid Test (USMAN) for Hepatitis C Viral RNA to confirm Hepatitis C status. Blood specimen (specimen) BLOOD SPECIMEN / Unknown 11/14/2017 10:15 AM PHOTOGRAPHIC AIDE 11/14/2017 11:03 AM PHOTOGRAPHIC AIDE us Verito Mcclendon MD LAB - CHEMISTRY ORDERABLES Final Result [facility] [address] [place] [address], [facility] [phone] from Last 3 Months or Most Recently Relevant to Health Maintenance Insurance [facility] SELF PAY NO INSURANCE Member Subscriber Plan / Payer (Ef fective for All Dates) Name:Beulah Garcia Member ID:Not on file Relation to Subscriber:Not on file Name:BEULAH GARCIA Subscriber ID:Not on file (Home) Address: [address] [place] [address] [place] [address] Payer ID:Not on file Group ID:Not on file Type:Self Pay Address: [place], [place] * Guarantor: Beulah Garcia Account Type Relation to Patient Date of Phone Billing Address Personal/Family Self [address] [place] [address] [place] [phone] Advance Directives * Full Code (Latest Code Status on File) Date Activated Date Inactivated Comments 10/07/2024 6:10 PM 10/11/2024 5:22 PM Care Teams Industrial Maintenance Manager Relationship Specialty Start Date End Date Sadia Morris [facility][Note 2] [address] [place] [address] PCP - General 09/13/24 Sadia Morris [facility] [place]Note 2] [address] [place] [address] 09/13/24
--- OUTSIDE RECORDS SUMMARY | 2025-04-24 20:28 | XMS_ITS | Clinical Summary ---
Author Organization [facility] Address [address], [facility] [address] [place] [address] Phone Care Team Providers Care Storage Garage Manager Name Role Phone Ric Malik MD Unavailable [phone] Ric Malik MD Unavailable [phone] Natacha Hoyt MD Primary Care Provider Allergies Active Allergy Reactions Criticality Noted Date Comments Sumatriptan Other (see Comments) 03/15/2023 [place] Oil Hives,Nausea,Vomitin g,Other (see Comments) Low 04/11/2017 [...] mouth 2 times daily. 07/05/20 22 Active albuterol 108 (90 Base) MCG/ACT Aerosol Solution INHALE 1 PUFF BY MOUTH EVERY 4 HOURS NEEDED FOR SHORTNESS OF BREATH FOR WHEEZING 05/27/20 23 Active hyoscyamine (ANASPAZ, LEVSIN) 0.125 MG Tablet TAKE 1 TABLET BY MOUTH 4 TIMES DAILY 05/10/20 23 Active Vraylar 6 MG Capsule 05/21/20 24 Active Rizatriptan Benzoate 5 MG Tablet TAKE 1 TABLET AT ONSET OF HEADACHE, IF NO RELIEF MAY REPEAT 1 TABLET AFTER AT LEAST 2 HOURS. MAX OF 3 PER 24 HOUR 03/01/20 24 Active prazosin (MINIPRESS) 2 MG Capsule TAKE 1 CAPSULE BY MOUTH AT BEDTIME 03/15/20 24 Active folic acid (FOLVITE) 1 MG Tablet Take 1 Tablet by mouth daily. 30 Tablet 3 05/26/20 24 Active aspirin-acetami nophen-caffeine (EXCEDRIN) 250-250-65 MG Tablet Take 1 Tablet by mouth. 08/01/20 17 Active betamethasone valerate (VALISONE) 0.1 % Cream 01/25/20 22 Active bisacodyl 10 MG Suppository 10 mg by Rectal route. 10/10/20 24 Active carvedilol (COREG) 6.25 MG Tablet Take 6.25 mg by mouth. 12/16/19 25 Active Continuous Glucose Sensor (Dexcom G7 Sensor) [facility] APPLY 1 SENSOR TOPICALLY, CHANGE AND REPLACE EVERY 10 DAYS. USE TO MONITOR GLUCOSE. 09/01/20 24 Active Jardiance 25 MG Tablet Take 25 mg by mouth daily. Active clotrimazole (LOTRIMIN) 1 % Cream Apply 1 Applicatorful. Active insulin glargine (LANTUS, BASAGLAR) 100 UNIT/ML Solution Pen-injector 30 Units by Subcutaneous route. 09/13/20 24 Active insulin NPH (HumuLIN N) 100 UNIT/ML Suspension Pen-injector 30 Units by Subcutaneous route. 10/10/20 24 Active nystatin (MYCOSTATIN) 077016 UNIT/GM Cream Apply. 11/24/19 25 Active pantoprazole (PROTONIX) 40 MG Tablet Delayed Response Take 1 Tablet by mouth daily. 10/10/20 24 Active polyethylene glycol (GLYCOLAX, MIRALAX) 17 g Pack Take 17 g by mouth. 10/10/20 24 Active Tirzepatide 10 MG/0.5ML Solution Auto-injector 10 mg by Subcutaneous route once a week. 09/08/20 24 Active fluticasone (FLONASE) 50 MCG/ACT Suspension 02/26/20 25 Active meclizine (ANTIVERT) 25 MG Tablet TAKE 1 TABLET BY MOUTH TWICE DAILY NEEDED FOR DIZZINESS FOR 7 DAYS 04/08/20 25 Active doxepin (SINEQUAN) 25 MG Capsule Take 25 mg by mouth. Active Mounjaro 12.5 MG/0.5ML Solution Auto-injector INJECT 12.5 MG SUBCUTANEOUSLY ONCE A WEEK 03/22/20 25 Active propranolol (INDERAL) 10 MG Tablet Take 20 mg by mouth. 01/31/20 24 025 Discontin ued(Med List Clean Up) Continuous Glucose Transmitter (Dexcom G6 Transmitter) [facility] 05/09/20 24 025 Discontin ued(Med List Clean Up) doxepin (SINEQUAN) 10 MG Capsule Take 10 mg by mouth. 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) 04/15/2025 1:00 PM CDT Office Visit [facility] [address] [phone] Anne Rodriguez APRN, SPEECH LANGUAGE PATHOLOGY ASSISTANT Iron deficiency (Primary Dx); B12 deficiency; Thrombocytopenia (HCC); 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) 04/15/2025 Results Follow-Up [facility] [address] [phone] Anne Rodriguez APRN, SPEECH LANGUAGE PATHOLOGY ASSISTANT COMPLETE BLOOD COUNT (CBC) WITH DIFF 04/15/2025 Travel from Last 3 Months Family History [...] Sign Reading Time Taken Comments Blood Pressure 100/60 04/15/2025 1:01 PM CDT Pulse 99 04/15/2025 1:01 PM CDT Temperature 36.4 C (97.6 F) 04/15/2025 1:01 PM CDT Respiratory Rate 18 04/15/2025 1:01 PM CDT Oxygen Saturation 99% 04/15/2025 1:01 PM CDT Inhaled Oxygen Concentration - - Weight 72.9 kg (160 lb 12.8 oz) 04/15/2025 1:01 PM CDT Height 157.5 cm (5' 2) 04/15/2025 1:01 PM CDT Body Mass Index 29.41 04/15/2025 1:01 PM CDT Plan of Treatment Upcoming Encounters Date Type Department Care Team (Late st Contact Info) Description 04/29/2025 9:30 AM CDT Lab [facility] [address] [phone] Lab, [facility]c [facility] 07/15/2025 1:00 PM CDT Office Visit [facility] [address] [phone] Ric Malik MD [address] [place] [address] Health Maintenance Due Date Last Done Comments Mammogram 1978 TdaP Immunization 1978 Pneumococcal Immunization Combined (1 of 2 - PCV) 1997 Pap Smear 1999 Cervical Cancer Screening (CCS) 2008 HPV/Cotest 2008 Discussion re Starting/Frequency of Mammograms 2018 Cologuard 2023 Immunochemical Fecal Occult Blood 2023 SARS-COV-2 Immunization ( - season) 2024 Influenza Immunization (#1) 2025 10/0 11/2019, 09/14/2019 Colonoscopy 08/27/2032 08/27/2022 Colorectal Cancer Screening [...] Procedure Name Priority Date/Time Associated Diagnosis Comments VITAMIN B12 [id number] [place] Routine 04/15/2025 1:22 PM CDT IRON AND TIBC [id number] [place] Routine 04/15/2025 1:22 PM CDT FOLATE [id number] [place] Routine 04/15/2025 1:22 PM CDT FERRITIN [id number] [place] Routine 04/15/2025 1: 22 PM CDT COMP. 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) from Last 3 Months Results * (ABNORMAL) VITAMIN B12 [id number] [place] (04/15/2025 1:22 PM CDT) VITAMIN B12 1,549(H) 232 - 1,245 PG/ML [facility] 04/15/2025 1:22 PM CDT Narrative [facility] - 04/16/2025 7:08 AM CDT TESTING PERFORMED AT: [] [facility], [address] [place] [address], [address], PHONE: [phone], ACID TANK LINER: DANNY CHRISTIAN, PHD us Anne Rodriguez APRN, SPEECH LANGUAGE PATHOLOGY ASSISTANT LAB SEND OUTS Final Result [facility] [address] [place] [address], * (ABNORMAL) IRON AND TIBC [id number] [place] (04/15/2025 1:22 PM CDT) Iron Bind.Cap.(TIBC) 262 250 - 450 UG/DL [facility] UIBC 226 131 - 425 UG/DL [facility] Iron, Serum 36 27 - 159 UG/DL [facility] Iron Saturation 14(L) 15 - 55 % [facility] 04/15/2025 1:22 PM CDT Narrative [facility] - 04/16/2025 7:08 AM CDT TESTING PERFORMED AT: [CB] [facility], [address] [place] [address], [address], PHONE: [phone], ACID TANK LINER: DANNY CHRISTIAN, PHD Anne Rodriguez APRN, SPEECH LANGUAGE PATHOLOGY ASSISTANT LAB SEND OUTS Final Result Performing Organization Address [facility] Co de Phone Number [facility] Cancer Care [address] [place] [address], * FOLATE [id number] [place] (04/15/2025 1:22 PM CDT) Folate (Folic Acid), Serum >20.0 >3.0 NG/ML [facility] Comment: A SERUM FOLATE CONCENTRATION OF LESS THAN 3.1 NG/ML IS CONSIDERED TO REPRESENT CLINICAL DEFICIENCY. 04/15/2025 1:22 PM CDT Narrative [facility] - 04/16/2025 7:08 AM CDT TESTING PERFORMED AT: [] [facility] [address] [place] [address], [address], PHONE: [phone], ACID TANK LINER: DANNY CHRISTIAN, PHD Anne Rodriguez APRN, SPEECH LANGUAGE PATHOLOGY ASSISTANT LAB SEND OUTS Final Result Performing Organization Address [facility] Co de Phone Number [facility] [address] [place] [address], * FERRITIN [id number] [place] (04/15/2025 1:22 PM CDT) Ferritin, Serum 96 15 - 150 NG/ML [facility] 04/15/2025 1:22 PM CDT Narrative [facility] - 04/16/2025 7:08 AM CDT TESTING PERFORMED AT: [] [facility] [address] [place] [address], [place], [address], PHONE: [phone], ACID TANK LINER: DANNY CHRISTIAN, PHD Anne Rodriguez APRN, SPEECH LANGUAGE PATHOLOGY ASSISTANT LAB SEND OUTS Final Result [facility] [place] [address] [place] [address], * (ABNORMAL) COMP. METABOLIC PANEL [id number] [place] (04/15/2025 1:22 PM CDT) GLUCOSE, SERUM 134(H) 70 - 99 MG/DL [facility] BUN 15 6 - 24 MG/DL [facility] CREATININE, SERUM 1.01(H) 0.57 - 1.00 MG/DL [facility] EGFR 70 >59 ML/MIN/1.7 3 [facility] BUN/CREATININE RATIO 15 9 - 23 [facility] SODIUM, SERUM 141 134 - 144 MMOL/L [facility] POTASSIUM, SERUM 3.8 3.5 - 5.2 MMOL/L [facility] CHLORIDE, SERUM 107(H) 96 - 106 MMOL/L [facility] CARBON DIOXIDE, TOTAL 18(L) 20 - 29 MMOL/L [facility] CALCIUM, SERUM 9.0 8.7 - 10.2 MG/DL [facility] PROTEIN, TOTAL, SERUM 6.0 6.0 - 8.5 G/DL [facility] ALBUMIN, SERUM 3.9 3.9 - 4.9 G/DL [facility] GLOBULIN, TOTAL 2.1 1.5 - 4.5 G/DL [facility] BILIRUBIN, TOTAL 0.6 0.0 - 1.2 MG/DL [facility] ALKALINE PHOSPHATASE, S 64 44 - 121 IU/L [facility] AST (SGOT) 38 0 - 40 IU/L [facility] ALT (SGPT) 27 0 - 32 IU/L [facility] 04/15/2025 1:22 PM CDT Narrative [facility] - 04/16/2025 7:08 AM CDT TESTING PERFORMED AT: [] [facility] [address], [address], PHONE: [phone], ACID TANK LINER: DANNY CHRISTIAN, PHD Anne Rodriguez APRN, SPEECH LANGUAGE PATHOLOGY ASSISTANT LAB SEND OUTS Final Result [facility] [place] [address], * (ABNORMAL) COMPLETE BLOOD COUNT (CBC) WITH DIFF (04/15/2025 1:22 PM CDT) WBC 2.2(L) 4.0 - 10.0 10*3/uL [facility] HGB 11.4 11.2 - 15.7 g/dL [facility] HCT 34.1 34.1 - 44.9 % [facility] PLT 40(L) 163 - 369 10*3/uL [facility] MPV 11.2 9.4 - 12.4 fL [facility] RBC 4.01 3.93 - 5.22 10*6/uL [facility] MCV 85 79 - 95 fL [facility] MCH 28.4 25.6 - 32.2 pg [facility] MCHC 33.4 32.2 - 36.5 g/dL [facility] RDW 17.2(H) 11.6 - 14.4 % [facility] Absolute Neutrophil Count 1,298 cells/uL [facility] Absolute Seg Count 1,298(L) 1,440 - 6,600 cells/uL [facility] Absolute Lymph Count 792 760 - 4,000 cells/uL [facility] Absolute [place] Count 44(L) 160 - 1,200 cells/uL [facility] Absolute Eos Count 44 0 - 300 cells/uL [facility] Absolute Baso Count 22 0 - 100 cells/uL [facility] Segmented Neutrophils 59 36 - 66 % [facility] Lymphocytes 36 19 - 40 % [facility] Monocytes 2(L) 4 - 12 % [facility] Eosinophils 2 0 - 3 % [facility] Basophils 1 0 - 1 % [facility] WBC Estimate Low [facility] Platelet Estimate Low [facility] RBC Morphology Abnormal [facility] Anisocytosis 1+ [facility] Blood 04/15/2025 1:22 PM CDT Narrative [facility] - 04/15/2025 3:07 PM CDT Release to patient->Immediate us Anne Rodriguez CEMENT CAR DUMPER, SPEECH LANGUAGE PATHOLOGY ASSISTANT HEMATOLOGY ORDERABLES Final Result [facility] [address] [place] [address], from Last 3 Months Insurance MEDICAID [facility] MEDICAID [facility] Care Teams Storage Garage Manager Relationship Specialty Start Date End Date Natacha Hoyt MD [address] [place] [address] [address] [place] [address] PCP - General Family Medicine 08/29/23 Ric Malik MD [address] [place] [address] Consulting Physician Oncology 05/22/22 Ric Malik MD [address] [place] [address] Consulting Physician Oncology 08/28/23
--- OUTSIDE RECORDS SUMMARY | 2025-04-24 20:28 | XMS_ITS | Clinical Summary ---
Author Organization [facility] Address [address] [place] [address] Care Team Providers Care Legal Department Manager Name Role Phone Sadia Morris NP Primary Care Provider + Allergies Active Allergy Reactions Criticality Noted Date Comments Sumatriptan Muscle pain,Other (See comments) Medium [place] Oil Hives Medium 02/13/2022 Medications cyclobenzaprine (FLEXERIL) [...] on file Legal Sex Female 11:18 PM REAGENT TENDER HELPER Gender Identity Not on file Sexual Orientation Not on file Obstetrics History Last Filed Vital Signs Vital Sign Reading Time Taken Comments Blood Pressure 122/71 09/13/2024 3:03 PM REAGENT TENDER HELPER Pulse 64 09/13/2024 3:03 PM REAGENT TENDER HELPER Temperature 36.2 C (97.2 F) 09/13/2024 3:03 PM REAGENT TENDER HELPER Respiratory Rate 16 09/13/2024 3:03 PM REAGENT TENDER HELPER Oxygen Saturation 97% 09/13/2024 3:03 PM REAGENT TENDER HELPER Inhaled Oxygen Concentration - - Weight 90.3 kg (199 lb) 09/12/2024 2:18 AM REAGENT TENDER HELPER Height 157.5 cm (5' 2) 09/12/2024 2:18 AM REAGENT TENDER HELPER Body Mass Index 36.4 09/12/2024 2:18 AM REAGENT TENDER HELPER Plan of Treatment Health Maintenance Due Date [...] 07/15/2020 Hemoglobin A1C 03/12/2025 09/12/2024 Influenza Vaccine (#1) 2025 , 09/14/2019, 11/16/2015, Additional history exists eGFR 09/11/2025 09/11/2024, 08/0 10/2023, 08/09/2023, Additional history exists HPV Vaccines Aged Out No longer eligi ble based on patient's age to complete this topic Procedures Procedure Name Priority Date/Time Associated Diagnosis Comments HEMOGLOBIN A1C Routine 09/12/2024 4:58 AM REAGENT TENDER HELPER EGFR STAT 09/11/2024 11:22 PM REAGENT TENDER HELPER from Last 3 Months or Most Recently Relevant to Health Maintenance Results * Hemoglobin A1c (09/12/2024 4:58 AM REAGENT TENDER HELPER) Hgb A1C 5.4 4.0 - 5.6 % Estimated Average Glucose 108 mg/dL [facility] Comment: The ADA recommends reporting an estimated Average Glucose (eAG) with all Hemoglobin A1c results using the equation derived from a study of 507 normal and diabetic adults. Minority populations were underrepresented and children were not included. (Diabetes Care 31:9506-7124, 2008). The eAG is not equivalent to a fasting glucose. Blood 09/12/2024 4:58 AM REAGENT TENDER HELPER 09/12/2024 5:07 AM REAGENT TENDER HELPER us Dionicio Levin MD LAB BLOOD ORDERABLES Final Resu lt [facility] 1 [facility] Department [place] [address] * eGFR (09/11/2024 11:22 PM REAGENT TENDER HELPER) eGFR 69 >=60 mL/min/1. 73 m2 Comment: [...] reviewed 2021. Blood 09/11/2024 11:2 2 PM REAGENT TENDER HELPER 09/11/2024 11:22 PM REAGENT TENDER HELPER Valdez Lee MD LAB BLOOD ORDERABLES Final R esult [facility] 1 [facility] Department [place] [address] from Last 3 Months or Most Recently Relevant to Health Maintenance Insurance [facility] Advance Directives For more information, please contact: [phone] * LIMITED - No CPR (Latest Code [...] 1:26 AM 09/12/2024 5:23 AM Care Teams Legal Department Manager Relationship Specialty Start Date End Date Sadia Morris NP [facility] [address] [place] [id number] PCP - General Nurse Practitioner 02/28/24
[2025-04-24 20:43] LABS: BEDSIDEPREGUCG Negative (Negative)
[2025-04-24 20:49] LABS: Hematocrit 39.6 % (37.0-47.0); Hemoglobin 12.8 g/dL (12.0-15.0); Immature Granulocyte Percent A 0.2 % (0-0.5); Immature Platelet Fraction Pct 6.9 % (0.9-11.2); Lymphocytes Absolute Auto 1.17 K/mm3 (0.9-3.2); Mean Corpuscular HGB Conc 32.3 g/dl (32-36); Mean Corpuscular Hemoglobin 28.1 pg (26-34); Mean Corpuscular Volume 86.8 fl (80-100); Nucleated Red Blood Cells Absolute Auto 0.000 K/mm3 (0.0-0.012); Nucleated Red Blood Cells Perc 0.0 % (0.0-0.2); Platelet Count Result 60 k/mm3 (150-375); Red Blood Count 4.56 M/mm3 (4.2-5.4); White Blood Count 4.6 K/mm3 (4.5-10.0)
--- OUTSIDE RECORDS SUMMARY | 2025-04-24 20:50 | XMS_ITS | Clinical Summary ---
Author Organization [facility] Address [address], [facility] [address] [place] [address] Phone Care Team Providers Care Route Rider Supervisor Name Role Phone Ric Malik MD Unavailable [phone] Ric Malik MD Unavailable [phone] Natacha Hoyt MD Primary Care Provider Allergies Active Allergy Reactions Criticality Noted Date Comments Sumatriptan Other (see Comments) 03/15/2023 [place] Oil Hives,Nausea,Vomitin g,Other (see Comments) Low 04/11/2017 [...] Glucose Sensor (Dexcom G7 Sensor) [facility] [place]PLY 1 SENSOR TOPICALLY, CHANGE AND REPLACE [...] Subcutaneous route. 10/10/20 24 Active nystatin (MYCOSTATIN) 645555 UNIT/GM Cream Apply. 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) 04/15/2025 1:00 PM CDT Office Visit [facility] [address] [phone] Anne Rodriguez APRN, INFANT CAREGIVER Iron deficiency (Primary Dx); B12 deficiency; Thrombocytopenia (HCC); 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) 04/15/2025 Results Follow-Up [facility] [address] [phone] Anne Rodriguez APRN, INFANT CAREGIVER COMPLETE BLOOD COUNT (CBC) WITH DIFF 04/15/2025 [...] AM CDT Lab [facility] [address] [address] Lab, Cc [facility] 07/15/2025 1:00 PM CDT Office Visit [facility] [address] [address] Ric Malik MD [address] [place] [address] Health Maintenance Due Date Last [...] Priority Date/Time Associated Diagnosis Comments VITAMIN B12 [id number] [place] Routine 04/15/2025 1:22 PM CDT IRON AND TIBC [id number] [place] Routine 04/15/2025 1:22 PM CDT FOLATE [id number] [place] Routine 04/15/2025 1:22 PM CDT FERRITIN [id number] [place] Routine 04/15/2025 1: 22 PM CDT COMP. 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, [address] [place] [address], [address], PHONE: [phone], LABORATORY INSPECTOR: DANNY CHRISTIAN, PHD us Anne Rodriguez APRN, INFANT CAREGIVER LAB SEND OUTS Final Result CANCER BUS SYSTEM OPERATOR [facility] [address] [address], * (ABNORMAL) IRON AND TIBC [id number] [place] (04/15/2025 1:22 PM CDT) Iron Bind.Cap.(TIBC) 262 250 - 450 UG/DL [facility] SYSTEM OPERATOR [facility] UIBC 226 131 - 425 UG/DL CANCER BUS SYSTEM OPERATOR [facility] Iron, Serum 36 27 - 159 UG/DL [facility] SYSTEM OPERATOR [facility] Iron Saturation 14(L) 15 - 55 % [facility] 04/15/2025 1:22 PM CDT Narrative [facility] - 04/16/2025 7:08 AM CDT TESTING PERFORMED AT: [CB] [facility], [address] [place] [address], [address], PHONE: [phone], LABORATORY INSPECTOR: DANNY CHRISTIAN, PHD Anne Rodriguez APRN, INFANT CAREGIVER LAB SEND OUTS Final Result Performing Organization Address [facility] Co de Phone Number [facility] [address] [place] [address], * FOLATE [id number] [place] (04/15/2025 1:22 PM CDT) Folate (Folic Acid), Serum >20.0 >3.0 NG/ML [facility] Comment: A SERUM FOLATE CONCENTRATION OF LESS THAN 3.1 NG/ML IS CONSIDERED TO REPRESENT CLINICAL DEFICIENCY. 04/15/2025 1:22 PM CDT Narrative [facility] - 04/16/2025 7:08 AM CDT TESTING PERFORMED AT: [] [facility] [address] [place] [address], [address], PHONE: [phone], LABORATORY INSPECTOR: DANNY CHRISTIAN, PHD Anne Rodriguez APRN, INFANT CAREGIVER LAB SEND OUTS Final Result Performing Organization Address [facility] Co de Phone Number CANCER BUS SYSTEM OPERATOR [facility] [address] [address], * FERRITIN [id number] [place] (04/15/2025 1:22 PM CDT) Ferritin, Serum 96 15 - 150 NG/ML CANCER BUS SYSTEM OPERATOR [facility] 04/15/2025 1:22 PM CDT Narrative CANCER BUS SYSTEM OPERATOR [facility] - 04/16/2025 7:08 AM CDT TESTING PERFORMED AT: [] [facility] [address] [place] [address], [place], [address], PHONE: [phone], LABORATORY INSPECTOR: DANNY CHRISTIAN, PHD Anne Rodriguez APRN, INFANT CAREGIVER LAB SEND OUTS Final Result CANCER BUS SYSTEM OPERATOR [facility] [place] [address] [place] [address], * (ABNORMAL) COMP. METABOLIC PANEL [id number] [place] (04/15/2025 1:22 PM CDT) GLUCOSE, SERUM 134(H) 70 - 99 MG/DL [facility] BUN 15 6 - 24 MG/DL [facility] CREATININE, SERUM 1.01(H) 0.57 - 1.00 MG/DL [facility] EGFR 70 >59 ML/MIN/1.7 3 [facility] BUN/CREATININE RATIO 15 9 - 23 [facility] SODIUM, SERUM 141 134 - 144 MMOL/L [facility] POTASSIUM, SERUM 3.8 3.5 - 5.2 MMOL/L [facility] CHLORIDE, SERUM 107(H) 96 - 106 MMOL/L [facility] CARBON DIOXIDE, TOTAL 18(L) 20 - 29 MMOL/L [facility] CALCIUM, SERUM 9.0 8.7 - 10.2 MG/DL [facility] PROTEIN, TOTAL, SERUM 6.0 6.0 - 8.5 G/DL [facility] ALBUMIN, SERUM 3.9 3.9 - 4.9 G/DL [facility] GLOBULIN, TOTAL 2.1 1.5 - 4.5 G/DL [facility] BILIRUBIN, TOTAL 0.6 0.0 - 1.2 MG/DL [facility] SYSTEM OPERATOR [facility] ALKALINE PHOSPHATASE, S 64 44 - 121 IU/L [facility] AST (SGOT) 38 0 - 40 IU/L [facility] ALT (SGPT) 27 0 - 32 IU/L [facility] SYSTEM OPERATOR [facility] 04/15/2025 1:22 PM CDT Narrative CANCER BUS SYSTEM OPERATOR [facility] - 04/16/2025 7:08 AM CDT TESTING PERFORMED AT: [] [facility] [address], [address], PHONE: [phone], LABORATORY INSPECTOR: DANNY CHRISTIAN, PHD Anne Rodriguez APRN, INFANT CAREGIVER LAB SEND OUTS Final Result CANCER BUS SYSTEM OPERATOR [facility] [place] [address], * (ABNORMAL) COMPLETE BLOOD COUNT (CBC) WITH DIFF (04/15/2025 1:22 PM CDT) WBC 2.2(L) 4.0 - 10.0 10*3/uL [facility] HGB 11.4 11.2 - 15.7 g/dL [facility] HCT 34.1 34.1 - 44.9 % CANCER BUS SYSTEM OPERATOR [facility] PLT 40(L) 163 - 369 10*3/uL CANCER BUS SYSTEM OPERATOR [facility] MPV 11.2 9.4 - 12.4 fL CANCER BUS SYSTEM OPERATOR [facility] RBC 4.01 3.93 - 5.22 10*6/uL CANCER BUS SYSTEM OPERATOR [facility] MCV 85 79 - 95 fL CANCER BUS SYSTEM OPERATOR [facility] MCH 28.4 25.6 - 32.2 pg CANCER BUS SYSTEM OPERATOR [facility] MCHC 33.4 32.2 - 36.5 g/dL CANCER BUS SYSTEM OPERATOR [facility] RDW 17.2(H) 11.6 - 14.4 % CANCER BUS SYSTEM OPERATOR [facility] Absolute Neutrophil Count 1,298 cells/uL [facility] Absolute Seg Count 1,298(L) 1,440 - 6,600 cells/uL CANCER BUS SYSTEM OPERATOR [facility] Absolute Lymph Count 792 760 - 4,000 cells/uL CANCER BUS SYSTEM OPERATOR [facility] Absolute [place] Count 44(L) 160 - 1,200 cells/uL CANCER BUS SYSTEM OPERATOR [facility] Absolute Eos Count 44 0 - 300 cells/uL CANCER BUS SYSTEM OPERATOR [facility] Absolute Baso Count 22 0 - 100 cells/uL CANCER BUS SYSTEM OPERATOR [facility] Segmented Neutrophils 59 36 - 66 % CANCER BUS SYSTEM OPERATOR [facility] Lymphocytes 36 19 - 40 % [facility] Monocytes 2(L) 4 - 12 % [facility] Eosinophils 2 0 - 3 % [facility] Basophils 1 0 - 1 % [facility] WBC Estimate Low CANCER BUS SYSTEM OPERATOR [facility] Platelet Estimate Low CANCER BUS SYSTEM OPERATOR [facility] RBC Morphology Abnormal CANCE R BUS SYSTEM OPERATOR [facility] Anisocytosis 1+ CANCER BUS SYSTEM OPERATOR [facility] Blood 04/15/2025 1:22 PM CDT Narrative CANCER BUS SYSTEM OPERATOR [facility] - 04/15/2025 3:07 PM CDT Release to patient->Immediate us Anne Rodriguez IT PROFESSIONAL, INFANT CAREGIVER HEMATOLOGY ORDERABLES Final Result CANCER BUS SYSTEM OPERATOR [facility] [address] [place] [place] [address], from Last 3 Months Insurance MEDICAID [facility] MEDICAID [facility] Care Teams Route Rider Supervisor Relationship Specialty Start Date End Date Natacha Hoyt MD [address] [place] [address] [address] [place] [address] PCP - General Family Medicine 08/29/23 Ric Malik MD [address] [place] [address] Consulting Physician Oncology 05/22/22 Ric Malik MD [address] [place] [address] Consulting Physician Oncology 08/28/23
--- OUTSIDE RECORDS SUMMARY | 2025-04-24 20:51 | XMS_ITS | Encounter Summary ---
Author Organization [facility] Address [address] [facility] [place] [address] Care Team Providers Care Pipe Organ Builder Name Role Phone Sadia Morris Primary Care Provider Sadia Morris Primary Care Provider [phone] Sadia Morris Unavailable Reason for Visit * Reason Onset Date Comments MEDICATION REFILL 01/21/2024 Encounter Details Date Type Department Care Team (Late st Contact Info) Description 01/21/2024 Refill [facility] - GI [address] [place] [address], [facility] [place] [phone] Salomon Sapp MD [address] [place] [address] [place] [address] MEDICATION REFILL Social History Tobacco Use Types [...] PM CDT Legal Sex Female 5:23 PM MOTORS ASSEMBLER Gender Identity Female 04/21/2024 2:38 PM CDT [...] 05/03/2025 10:30 AM CDT Hospital Encounter [facility] [address] [place] [address] Salomon Sapp MD [address] [place] [address] [address] [place] [address] Surgery General 05/03/2025 10:30 AM CDT - 05/03/2025 11:00 AM CDT Surgery [facility] END[facility]COPY [address] [place] [address] Salomon Sapp MD [address] [place] [address] [address] [place] [address] EGD +/- banding w/ Sekou 05/07/2025 12:30 PM CDT Office Visit [facility] - GI [address] [place] [phone] Salomon Sapp MD [address] [place] [address] [address] [place] [address] 09/24/2025 9:30 AM MOTORS ASSEMBLER Appointment [facility] [address] [place] [phone] Salomon Sapp MD [address] [place] [address] [address] [place] [address] 09/24/2025 10:30 AM MOTORS ASSEMBLER Office Visit [facility] - GI [address] [place] [phone] Salomon Sapp MD [address] [place] [address] [address] [address] Scheduled Procedures Name Priority Associated Diagnoses Date/Ti me ESOPHAGOGASTRODUODENOSCOPY ( EGD) DIAGNOSTIC Esophageal varices without bleeding, unspecified esophageal varices type (HCC) 05/03/2025 10:30 AM CDT documented as of this encounter Goals Goal Patient Goal Type Associated Problems Recent Progress Patient-Stated? Author Medication Management General On track( 025 9:52 AM MOTORS ASSEMBLER) Mary Kay Andrade, RN Note: Expected end date: ongoing Interventions: Take all medications as prescribed Let your doctor know right away about any changes in your medications Make sure to request a refill of your medication at least one week prior to your last dose documented as of this encounter Visit Diagnoses Not on filedocumented in this encounter Care Teams Pipe Organ Builder Relationship Specialty Start Date End Date Sadia Morris [address] [place] [address] PCP - General 09/24/23 09/12/24 Sadia Morris [address] [place] [address] PCP - General 09/13/24 Sadia Morris [address] [facility] [address] [place] [address] 09/13/24 documented as of this encounter
--- OUTSIDE RECORDS SUMMARY | 2025-04-24 20:51 | XMS_ITS | Clinical Summary ---
Author Organization [facility] Address [address] [place] [address] Care Team Providers Care Wool Puller Name Role Phone Sadia Morris NP Primary Care Provider + Allergies Active Allergy Reactions Criticality Noted Date Comments Sumatriptan Muscle pain,Other (See comments) Medium [place] Oil Hives Medium 02/13/2022 Medications cyclobenzaprine (FLEXERIL) [...] on file Legal Sex Female 11:18 PM STEEL DETAILER Gender Identity Not on file Sexual Orientation Not on file Obstetrics History Last Filed Vital Signs Vital Sign Reading Time Taken Comments Blood Pressure 122/71 09/13/2024 3:03 PM STEEL DETAILER Pulse 64 09/13/2024 3:03 PM STEEL DETAILER Temperature 36.2 C (97.2 F) 09/13/2024 3:03 PM STEEL DETAILER Respiratory Rate 16 09/13/2024 3:03 PM STEEL DETAILER Oxygen Saturation 97% 09/13/2024 3:03 PM STEEL DETAILER Inhaled Oxygen Concentration - - Weight 90.3 kg (199 lb) 09/12/2024 2:18 AM STEEL DETAILER Height 157.5 cm (5' 2) 09/12/2024 2:18 AM STEEL DETAILER Body Mass Index 36.4 09/12/2024 2:18 AM STEEL DETAILER Plan of Treatment Health Maintenance Due Date [...] Comments HEMOGLOBIN A1C Routine 09/12/2024 4:58 AM STEEL DETAILER EGFR STAT 09/11/2024 11:22 PM STEEL DETAILER from Last 3 Months or Most Recently Relevant to Health Maintenance Results * Hemoglobin A1c (09/12/2024 4:58 AM STEEL DETAILER) Hgb A1C 5.4 4.0 - 5.6 % Estimated Average Glucose 108 mg/dL [facility] ([place]) Comment: The ADA recommends reporting an estimated Average Glucose (eAG) with all Hemoglobin A1c results using the equation derived from a study of 507 normal and diabetic adults. Minority populations were underrepresented and children were not included. (Diabetes Care 31:9556-9964, 2008). The eAG is not equivalent to a fasting glucose. Blood 09/12/2024 4:58 AM STEEL DETAILER 09/12/2024 5:07 AM STEEL DETAILER us Dionicio Levin MD LAB BLOOD ORDERABLES Final Resu lt [facility] ([place]) [address] [facility] Department [place] [address] * eGFR (09/11/2024 11:22 PM STEEL DETAILER) eGFR 69 >=60 mL/min/1. 73 m2 Comment: [...] reviewed 2021. Blood 09/11/2024 11:2 2 PM STEEL DETAILER 09/11/2024 11:22 PM STEEL DETAILER Valdez Lee MD LAB BLOOD ORDERABLES Final R esult [facility] ([place]) [address] [facility] Department [place] [employer] [place] [address] from Last 3 Months or Most Recently Relevant to Health Maintenance Insurance [facility] Advance Directives For more information, please contact: [phone] * LIMITED - No CPR (Latest Code [...] 1:26 AM 09/12/2024 5:23 AM Care Teams Wool Puller Relationship Specialty Start Date End Date Sadia Morris NP [facility] [facility] [address] [place] [id number] PCP - General Nurse Practitioner 02/28/24
--- OUTSIDE RECORDS SUMMARY | 2025-04-24 20:51 | XMS_ITS | Referral Summary ---
Author Organization [facility] Address [address] [place] [address] Care Team Providers Care Granular Operator Name Role Phone Sadia Morris NP Primary Care Provider + Allergies Active Allergy Reactions Criticality Noted Date Comments Sumatriptan Muscle pain,Other (See comments) Medium [place] Oil Hives Medium 02/13/2022 Medications cyclobenzaprine (FLEXERIL) [...] on file Legal Sex Female 11:18 PM FINAL RAIL CUTTER Gender Identity Not on file Sexual Orientation Not on file Last Filed Vital Signs Vital Sign Reading Time Taken Comments Blood Pressure 122/71 09/13/2024 3:03 PM FINAL RAIL CUTTER Pulse 64 09/13/2024 3:03 PM FINAL RAIL CUTTER Temperature 36.2 C (97.2 F) 09/13/2024 3:03 PM FINAL RAIL CUTTER Respiratory Rate 16 09/13/2024 3:03 PM FINAL RAIL CUTTER Oxygen Saturation 97% 09/13/2024 3:03 PM FINAL RAIL CUTTER Inhaled Oxygen Concentration - - Weight 90.3 kg (199 lb) 09/12/2024 2:18 AM FINAL RAIL CUTTER Height 157.5 cm (5' 2) 09/12/2024 2:18 AM FINAL RAIL CUTTER Body Mass Index 36.4 09/12/2024 2:18 AM FINAL RAIL CUTTER Plan of Treatment Not on file Procedures Procedure Name Priority Date/Time Associated Diagnosis Comments HEMOGLOBIN A1C Routine 09/12/2024 4:58 AM FINAL RAIL CUTTER EGFR STAT 09/11/2024 11:22 PM FINAL RAIL CUTTER from Last 3 Months or Most Recently Relevant to Health Maintenance Results * Hemoglobin A1c (09/12/2024 4:58 AM FINAL RAIL CUTTER) Hgb A1C 5.4 4.0 - 5.6 % Estimated Average Glucose 108 mg/dL [facility] ([place]) Comment: The ADA recommends reporting an estimated Average Glucose (eAG) with all Hemoglobin A1c results using the equation derived from a study of 507 normal and diabetic adults. Minority populations were underrepresented and children were not included. (Diabetes Care 31:7055-5556, 2008). The eAG is not equivalent to a fasting glucose. Blood 09/12/2024 4:58 AM FINAL RAIL CUTTER 09/12/2024 5:07 AM FINAL RAIL CUTTER Dionicio Levin MD LAB BLOOD ORDERABLES Final Resu lt [facility]ITH [facility]OMPSON ([place]) 1 [facility] Department of Laboratories [place], [place] [id number] * eGFR (09/11/2024 11:22 PM FINAL RAIL CUTTER) eGFR 69 >=60 mL/min/1. 73 m2 Comment: [...] reviewed 2021. Blood 09/11/2024 11:2 2 PM FINAL RAIL CUTTER 09/11/2024 11:22 PM FINAL RAIL CUTTER Valdez Lee MD LAB BLOOD ORDERABLES Final R esult [facility] SPEED) [address] [facility] Department of [employer] [address] from Last 3 Months or Most Recently Relevant to Health Maintenance Insurance Advance Directives For more information, please contact: [phone] * LIMITED - No CPR (Latest Code [...] 1:26 AM 09/12/2024 5:23 AM Care Teams Granular Operator Relationship Specialty Start Date End Date Sadia Morris NP [address] [facility] [address] [place] [id number] PCP - General Nurse Practitioner 02/28/24
--- OUTSIDE RECORDS SUMMARY | 2025-04-24 20:51 | XMS_ITS | Clinical Summary ---
Author Organization [facility] [employer] Address [address] [place] [address] Care Team Providers Care Geology Faculty Member Name Role Phone Sadia Morris Primary Care Provider [phone] Sadia Morris Unavailable Source Comments [facility],non-owned Affiliates and Associated Physician Practices is amultiple site organization consisting of ambulatory clinics and hospital sitesin [place], [place], [place] and [place]. This disclosure is being madepursuant to the Care Everywhere program and may not contain all information available regarding this patient. Last updated 18.[facility] [employer] Allergies Active Allergy Reactions Criticality Noted Date Comments Sumatriptan Myalgias 03/15/2023 Sumatriptan Headache 10/07/2024 Ceres Oil Rash,Itching,Skin Reactions Medium 08/01/2017 actual sunflowers themselves Ceres Oil Nausea and/or Vomiting 10/07/2024 Medications * [...] as needed Active Glucagon 3 MG/DOSE POWD [place] 3 mg into the nose as needed [...] Sulfate (IRON PO) Active Continuous Glucose Sensor (LifeScribe G7 Sensor) [facility] APPLY 1 SENSOR TOPICALLY, CHANGE AND REPLACE EVERY 10 DAYS. USE TO MONITOR GLUCOSE. 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); Secondary esophageal varices without bleeding (HCC) 03/22/2025 9:22 AM CDT - 03/22/2025 11:59 PM CDT Hospital Encounter [facility] [address] [place] [address] Salomon Sapp MD Discharge Disposition: Home or Self Care 03/22/2025 Travel 03/05/2025 Orders Only [facility] [address] [place] [phone] Salomon Sapp MD 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); Liver lesion; Secondary esophageal varices with bleeding (HCC); Iron deficiency anemia due to chronic blood loss 02/01/2025 9:31 AM CDT Anesthesia Event [facility] [address] [place] [address] Ninfa Cruz MD Dobbs, Romina Adams, HUMAN RESOURCES SERVICES SPECIALIST-SONOGRAPHER 02/01/2025 9:00 AM CDT - 02/01/2025 9:30 AM CDT Surgery [facility] [address] [place] [address] Salomon Sapp MD EGD +/- banding w/ sekou 02/01/2025 7:50 AM CDT - 02/01/2025 10:34 AM CDT Hospital Encounter [facility] [address] [place] [address] Salomon Sapp MD Surgery General Discharge Disposition: [...] and heating? Not hard at all 10/07/2024 [facility] Occupat ional Health - Occupational Stress [...] in the past 12 m [facility], were you homeless or living in a prison (including now)? No 10/07/2024 Comments No Sex and Gender Information Value Date Recorded Sex Assigned at Female 04/21/2024 2:38 PM CDT Legal Sex Female 5:23 PM MEDICAL NURSE Gender Identity Female 04/21/2024 2:38 PM CDT [...] Description 05/03/2025 10:30 AM CDT Hospital Encounter [facility] [address] [place] [address] Salomon Sapp MD [address] [place] [address] [address] [place] [address] Surgery General 05/03/2025 10:30 AM CDT - 05/03/2025 11:00 AM CDT Surgery [facility] [address] [place] [phone] Salomon Sapp MD [address] [place] [address] [address] [place] [address] EGD +/- banding w/ Sekou 05/07/2025 12:30 PM CDT Office Visit [facility] [address] [place] [phone] Salomon Sapp MD [address] [place] [address] [address] [place] [address] 09/24/2025 9:30 AM MEDICAL NURSE Appointment [facility] [address] [place] [phone] Salomon Sapp MD [address] [place] [address] [address] [place] [address] 09/24/2025 10:30 AM MEDICAL NURSE Office Visit [facility] [address] [place] [phone] Salomon Sapp MD [address] [place] [address] [address] [place] [address] Scheduled Procedures Name Priority Associated Diagnoses Date/Ti [...] General On track( 025 9:52 AM MEDICAL NURSE) Mary Kay Andrade RN Note: Expected end [...] lesion EGD Routine 02/01/2025 9:33 AM CDT DC ED EGD FLEX TRANSORAL DX 02/01/2025 9:26 AM CDT Esophageal varices without bleeding, unspecified esophageal varices type (HCC) Special Needs EGD January Eric Received: Yesterday Makayla Pacheco RN [facility] Schedulers - Endoscopy [facility], Please schedule an EGD for Dr. Sapp in January. Makayla Garcia Received Date Received Time Dec 15, 2024 4:51 PM GLUCOSE - POINT OF CARE Routine 02/01/2025 8:55 AM CDT COMPREHENSIVE METABOLIC PANEL 01/21/2025 12:17 PM CDT HEMOGLOBIN A1C Routine 10/08/2024 9:31 AM MEDICAL NURSE ENDOSCOPY, COLON, DIAGNOSTIC Routine 08/27/2022 12:28 PM MEDICAL NURSE HEPATITIS C ANTIBODY Routine 11/14/2017 10:15 AM MEDICAL NURSE from Last 3 Months or Most Recently [...] entire procedure. Procedure Code(s): --- Professional --- 23408, Esophagogastroduo denoscopy, flexible, transoral; with band ligation of esophageal/gastri c varices Diagnosis Code(s): --- Professional --- I85.00, Esophageal varices without bleeding K22.89, Other specified disease of esophagus K76.6, Portal hypertension K31.89, Other diseases of stomach and duodenum CPT copyright 2021 [place] [employer]. All rights reserved. The codes documented in this report are preliminary and upon material control clerk review may be revised to meet current compliance requirements. _ Salomon Sapp MD 02/01/2025 9:52:30 AM This report has been signed electronically. Note Initiated On: 02/01/2025 9:33 AM Number of Addenda: [address] [address] [facility] 02/01/2025 9:33 AM CDT Salomon Sapp MD GI PROCEDURE ORDERABLES Edited Result - Final [facility] * (ABNORMAL) GLUCOSE - POINT OF CARE (02/01/2025 8:55 AM CDT) [facility] Glucose WB/POC 155(H) 70 - 99 mg/dL 02/01/2025 11:56 AM CDT [facility] Specimen Type Cap Fingerstick 2024 11:56 AM CDT [facility] Blood BLOOD SPECIMEN / Unknown 02/01/2025 8:55 AM CDT 02/01/2025 11:56 AM CDT Salomon Sapp MD LAB - POINT OF CARE ORDERABLES Final Result [facility] [address] [place] [address], [facility] [phone] * (ABNORMAL) COMPREHENSIVE METABOLIC PANEL (01/21/2025 12:17 PM CDT) [facility] Glucose 184(H) 65 - 99 mg/dL [facility] [...] 29 U/L [facility] Comment: Test Performed at: [facility] [address] [place] [address] GISSEL OLIVER MD 01/21/2025 12:1 7 PM CDT 01/21/2025 12:18 PM CDT Salomon Sapp MD LAB - CHEMISTRY ORDERABLES Fin al Result Performing Organization Address City/[facility]/ZIP Co de Phone Number [address] [address] * HEMOGLOBIN A1C (10/08/2024 9:31 AM MEDICAL NURSE) Hemoglobin A1c 5.3 <=5.6 % 10/08/2024 1:40 PM MEDICAL NURSE [facility] Estimated Average Glucose 105 mg/dL 10/08/2024 1:40 PM MEDICAL NURSE [facility] Comment: HbA1c Interpretation: Normal : < 5.7% Pre-diabetes: 5.7-6.4% Diabetes: Equal to or greater than 6.5% Test results diagnostic of diabetes should be repeated for confirmation. Treatment target values recommended by ADA and other clinical organizations should be used to evaluate metabolic control in patients. Reference: [place] [employer], Standards of Care in Diabetes -2020 In patients 70 years and older consider HbA1c target range of 7.0-7.5% (Reference: Garcia Contreras et al. JAMDA. 2012) The Sebia assay for the measurement of HbA1c is a National Glycohemoglobin Standardization Program (NGSP) certified method. Blood BLOOD SPECIMEN / Unknown Lab Venipuncture / Unknown 10/08/2024 9:31 AM MEDICAL NURSE 10/08/2024 9:59 AM MEDICAL NURSE us Ron Dawson MD LAB - CHEMISTRY ORDERABLES Final Result [facility] [address] [place] [address], [facility] [phone] * ENDOSCOPY, COLON, DIAGNOSTIC (08/27/2022 12:28 PM MEDICAL NURSE) Report Endoscopy POC Endoscopy Department Report _ [...] entire procedure. Procedure Code(s): --- Professional --- 51192, Colonoscopy, flexible; with removal of tumor(s), polyp(s), or other lesion(s) by snare technique Diagnosis Code(s): --- Professional --- K63.5, Polyp of colon K64.4, Residual hemorrhoidal skin tags R10.84, Generalized abdominal pain K92.1, Melena (includes Hematochezia) CPT copyright 2019 [place] [employer]. All rights reserved. The codes documented in this report are preliminary and upon material control clerk review may be revised to meet current compliance requirements. Salomon Sapp MD 08/27/2022 1:27:31 PM This report has been signed electronically. Note Initiated On: 08/27/2022 12:28 PM Number of Addenda: [address] [address] [facility] 08/27/2022 12:2 8 PM MEDICAL NURSE Salomon Sapp MD GI PROCEDURE ORDERABLES Edited Result - Final [facility] * HEPATITIS C ANTIBODY (11/14/2017 10:15 AM MEDICAL NURSE) Hepatitis C Antibody Non-react vishal Non-reac tive [facility] Comment: Hepatitis C Antibody screen indicates no serologic evidence of past or current infection with Hepatitis C Virus. Patients with unexplained liver disease who are immunocompromised or suspected of having acute Hepatitis C infection may benefit from Nucleic Acid Test (USMAN) for Hepatitis C Viral RNA to confirm Hepatitis C status. Blood specimen (specimen) BLOOD SPECIMEN / Unknown 11/14/2017 10:15 AM MEDICAL NURSE 11/14/2017 11:03 AM MEDICAL NURSE us Verito Mcclendon MD LAB - CHEMISTRY ORDERABLES Final Result [facility] [address] [place] [address], [facility] [phone] from Last 3 Months or Most Recently Relevant to Health Maintenance Insurance [facility] SELF PAY NO INSURANCE Member Subscriber Plan / Payer (Ef fective for All Dates) Name:Beulah Garcia Member ID:Not on file Relation to Subscriber:Not on file Name:BEULAH GARCIA Subscriber ID:Not on file (Home) Address: [address] [place] [address] [place] [address] Payer ID:Not on file Group ID:Not on file Type:Self Pay Address: [place], [place] [address] [place] [id number] Advance Directives * Full Code (Latest Code Status on File) Date Activated Date Inactivated Comments 10/07/2024 6:10 PM 10/11/2024 5:22 PM Care Teams Geology Faculty Member Relationship Specialty Start Date End Date Sadia Morris [facility] [place] [address] PCP - General 09/13/24 Sadia Morris [facility] [address] [facility] [address] [place] [address] 09/13/24
[2025-04-24] MEDS: ONDANSETRON INJ 4 MG/2 ML VIAL IV PUSH (20:57)
[2025-04-24 21:02] LABS: Add Urine Microscopic? YES; Appearance Urine Cloudy (Clear); Glucose Urine UA 3+ mg/dL (Negative); Leukocyte Esterase Ur 2+ LEU/UL (Negative); Need Manual Microscopic Reviewed; Nitrate Urine Negative (Negative); Specific Grav Ur 1.027 (1.001-1.035)
--- NOTE | 2025-04-24 21:18 | PC.NURSE ---
MD Calvillo verbally states we do not need blood cultures drawn before starting IV antibiotics.
[2025-04-24] MEDS: cefTRIAXone 2 GM in SODIUM CHLORIDE 0.9% IV 100 ML 200 ML IVPB (21:23)
[2025-04-24] MEDS: SODIUM CHLORIDE 0.9% IV 1,000 ML 999 ML IV CONT ×2 (21:24→22:25)
[2025-04-24 21:57] LABS: Alanine Aminotransferase 56 U/L (6-35); Albumin Level 4.1 g/dL (3.5-5.1); Alkaline Phosphatase 51 U/L (38-126); Anion Gap 12 mmol/L (4-12); Aspartate Amino Transferase 62 U/L (14-36); Bilirubin,Total 0.8 mg/dL (0.2-1.3); Blood Urea Nitrogen 14 mg/dL (7-17); Calcium 9.4 mg/dL (8.4-10.2); Carbon Dioxide 19 mmol/L (22-30); Chloride 109 mmol/L (98-107); Estimated CRCL calculation 56 ml/min; Estimated Glomerular Filt Rate 57; Glucose 148 mg/dL (65-110); Lipase 139 U/L (23-300); Magnesium 1.8 mg/dL (1.6-2.3); Potassium 3.6 mmol/L (3.4-5.0); Sodium 140 mmol/L (137-145); Total Protein 6.7 g/dL (6.3-8.2)
--- NOTE | 2025-04-24 22:10 | ED_ITS ---
HPI - Abdominal Pain General Chief Complaint: Abdominal Pain Stated Complaint: abd pain Time Seen by Provider: 04/24/25 20:44 History of Present Illness HPI narrative: Patient is a 44-year-old female who presents to the emergency department this evening complaining of right lower quadrant abdominal pain radiating to her right flank. States that she does have a history of kidney stones and that this somewhat feels similar to that but also not. Also states that she still has her appendix. Pain started around 4:00 p.m. this afternoon. States that she feels nauseous but denies any vomiting episodes. Denies any urinary symptoms including dysuria or hematuria. Denies any fevers or chills at home. No additional symptoms or concerns at this time. Related Data Home Medications ?Medication ?Instructions ?Recorded ?Confirmed ?Last Taken ?Type diphenhydramine HCl 25 mg capsule 25 mg PO TID PRN itching 06/01/22 04/14/25 03/03/25 History (Benadryl) buspirone 15 mg tablet 15 mg PO BID 10/25/22 04/14/25 03/04/25 History hydroxyzine pamoate 25 mg capsule 50 mg PO Q4H PRN Anxiety 07/25/23 04/14/25 Unknown History (Vistaril) prazosin 2 mg capsule 2 mg PO QHS 01/27/24 04/14/25 03/03/25 History cholecalciferol (vitamin D3) 50 50 mcg PO DAILY 07/24/24 04/14/25 03/04/25 History mcg (2,000 unit) capsule (Vitamin D3) ferrous sulfate 325 mg (65 mg 325 mg PO DAILY 07/24/24 04/14/25 03/04/25 History iron) tablet lidocaine 3 %-hydrocortisone 0.5 % 1 applic RECTAL BID PRN Pain 07/24/24 04/14/25 08/03/24 History rectal cream vitamin B complex 1 tablet PO DAILY 07/24/24 04/14/25 12/07/24 History cariprazine 6 mg capsule (Vraylar) 6 mg PO DAILY 09/21/24 04/14/25 03/04/25 History doxepin 10 mg capsule 25 mg PO DAILY 03/16/25 04/14/25 Unknown History Allergies Allergy/AdvReac Type Severity Reaction Status Date / Time sunflower oil Allergy Intermediate Hives Verified 04/14/25 09:05 sumatriptan (From Imitrex) AdvReac Intermediate Muscle Verified 04/14/25 09:05 Spasms Review of Systems 2 Review of Systems: All systems are reviewed and are negative unless stated otherwise in the HPI. [facility] Past Medical History Medical History Type 2 diabetes mellitus (~2006) Rectal bleeding Left knee pain Medial meniscus tear Chronic nausea Gastroesophageal reflux disease Esophageal varices determined by endoscopy Irritable bowel syndrome with alternating bowel habits Portal hypertensive gastropathy Cirrhosis Bipolar 2 disorder Alopecia Cat scratch of forearm Body mass index (BMI) 35 or more (05/05/19) Vaginal yeast infection Type 2 diabetes mellitus with hyperglycemia Benign essential hypertension Abnormal vaginal bleeding Abnormal CT of brain Nausea & vomiting Hx of renal calculi (~07/2021) Portal hypertension (~07/2021) Chronic GERD Ganglion cyst Vitamin D deficiency Dyslipidemia BMI 40.0-44.9, adult Anxiety and depression HTN (hypertension) Type 2 diabetes mellitus with other circulatory complications (~2006) Avulsion fracture of right calcaneus with delayed healing (~2016) Other and unspecified hyperlipidemia (~2018) Hypertension complicating diabetes (~2013) Iron deficiency anemia due to chronic blood loss (~2016) 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 Casillas: Cancer center [facility] Microalbuminuria due to type 2 diabetes mellitus (~2017) Migraine without aura, not intractable, with status migrainosus (~1992) meds tried: midrin (helpful), imitrex (no help), zomig, topamax (helpful) Recurrent major depressive disorder in partial remission (~1992) Renal cyst, acquired (~2011) Hyperlipidemia associated with type 2 diabetes mellitus (~2018) Unspecified cirrhosis of liver (~2014) LOVE Surgical History Surgical History History of urethral stent (~07/2021) H/O: hysterectomy H/O left knee surgery Status post right foot surgery (~2017) History of cholecystectomy (~2017) Family History Family History Father Hypertension Cerebrovascular accident Family history of diabetes mellitus in first degree relative Diabetes mellitus Mother Hypertension Other Family history of Alzheimer's disease Family history of cardiovascular disease Family history of chronic obstructive pulmonary disease Family history of congestive heart failure Family history of hearing loss Family history of migraine headaches Family history of obesity Social History Social History Social History: , no children. Unemployed. Caffeine-rarely Smoking packs per day: 1 Smoking cigarettes per day: 20.0 Years smoked: 13 Smoking pack-years: 13.00 Smoking status: Current every day smoker Tobacco type: e-cigarettes/vaping Smoking end date: 10/14/06 Alcohol intake: former Drinks per week: 1 Substance use: never Substance use type: does not use Last use: Quit 1996 Do You Feel Safe in your Home?: Yes Lack of Transportation: No Lack of Food: Never True Current Housing: I Have Housing Concerned About Future Housing: No Difficulty Paying Gas/Electric Bills: No Difficulty Paying for Meds: No Currently Unemployed: No Education: Associate Degree Difficulty w/ Childcare or Family Care: No Living arrangements: with family Additional living arrangements comments: lives with soon to be x- Occupation/Education: occupation Gender identity (if verbalized by the patient): Female Spiritual care concerns: No Agree to blood products: Yes Exam 2 Narrative: General: Alert, awake, afebrile, in no acute distress. HEENT: PERRL, no rhinorrhea, no post nasal drip, oropharynx clear. Neck: Trachea midline, no JVD, no lymphadenopathy. Cardiovascular: Regular rate and rhythm, no murmurs, rubs or gallops, no peripheral edema. Respiratory: Clear to auscultation bilaterally, no tachypnea, no wheezing, no rhonchi, no rubs, no respiratory distress. Abdomen: Soft, nontender, nondistended, no rebound, no guarding, no peritoneal signs. Musculoskeletal: No joint swelling or deformity, normal muscle tone. Skin: No rashes or petechia, no signs of infection. Psychiatric: Alert and oriented, normal behavior and judgment for situation. Neurological: Alert and oriented to person, place, and time. Follows all commands. No focal deficits, speech is clear and fluent. Course Vital Signs Vital signs: Vital Signs Temperature 97.6 F 04/24/25 20:33 Pulse Rate 87 04/24/25 20:33 Respiratory Rate 18 04/24/25 20:33 Blood Pressure 105/72 04/24/25 20:33 Pulse Oximetry 100 04/24/25 20:33 Oxygen Delivery Room Air 04/24/25 20:33 Temperature 97.6 F 04/24/25 20:33 Pulse Rate 67 04/24/25 23:01 Respiratory Rate 17 04/24/25 23:01 Blood Pressure 90/56 L 04/24/25 23:01 Pulse Oximetry 100 04/24/25 23:01 Oxygen Delivery Room Air 04/24/25 20:33 MDM - Abdominal Pain MDM Narrative Medical decision making narrative: The patient was evaluated by myself in the emergency department. History is obtained from patient who is an independent historian and physical exam was performed. External medical records were reviewed at this time. IV was established and pertinent tests were ordered. Patient was administered 2 L IV fluid bolus with normal saline and 4 mg IV Zofran. Laboratory results obtained revealing no acute process. Urinalysis did reveal urinary tract infection. At this time patient was administered 2 g of IV Rocephin. Imaging studies obtained included CT abdomen and pelvis with IV contrast which was independently interpreted by me revealing cirrhosis with splenomegaly, and pericarditis, otherwise no acute process, which is pending final radiology interpretation. Differential diagnosis considerations include kidney stones, appendicitis, diverticulitis, pyelonephritis. Comorbidities impacting this visit include history of kidney stones. I have evaluated and discussed social determinants of health with the patient that could potentially impact subsequent diagnosis and treatment plans. On repeat assessment of the patient, reevaluation revealed that the patient is doing well and is in no acute distress. Patient symptoms have improved since she arrived to our emergency department. Repeat vital signs were all reviewed and noted to be stable. Differential diagnosis and treatment plan were discussed with the patient at bedside. Patient agrees with discussion and after shared medical decision making agrees with discharge. All questions were answered to the patient's satisfaction. Patient will follow up with her PCP in 3-5 days. A script for cephalexin was sent to patient's pharmacy to take as prescribed for her UTI. Patient was provided with strict return precautions and instructed to return to the emergency department if any new or worsening symptoms develop. The patient was discharged in stable condition. Lab Data 04/24/25 20:38 04/24/25 20:56 Labs: Lab Results 04/24/25 04/24/25 04/24/25 Range/Units 20:38 20:41 20:56 WBC 4.6 (4.5-10.0) K/mm3 RBC 4.56 (4.2-5.4) M/mm3 Hgb 12.8 (12.0-15.0) g/dL Hct 39.6 (37.0-47.0) % MCV 86.8 (80-100) fl MCH 28.1 (26-34) pg MCHC 32.3 (32-36) g/dl RDW 17.4 H (11.5-14.5) % Plt Count 60 L (150-375) k/mm3 MPV 11.9 H (7.4-10.4) fl Immature Gran % (Auto) 0.2 (0-0.5) % Neut % (Auto) 67.4 (45.5-73.1) % Lymph % (Auto) 25.6 (18.3-44.2) % Marion % (Auto) 4.8 (2.6-8.5) % Eos % (Auto) 1.3 (0-4.4) % Baso % (Auto) 0.7 (0.2-1.2) % Lymph # (Auto) 1.17 (0.9-3.2) K/mm3 Marion # (Auto) 0.2 (0.1-0.6) K/mm3 Eos # (Auto) 0.1 (0-0.3) K/mm3 Baso # (Auto) 0.0 (0.0-0.1) K/mm3 Abs Immat Gran (auto) 0.01 (0.00-0.031) K/mm3 Absolute Neuts (auto) 3.1 (1.3-6.7) K/mm3 Absolute Nucleated RBC 0.000 (0.0-0.012) K/mm3 Nucleated RBC % 0.0 (0.0-0.2) % % Immature Plt Fraction 6.9 (0.9-11.2) % Sodium 140 (137-145) mmol/L Potassium 3.6 (3.4-5.0) mmol/L Chloride 109 H (98-107) mmol/L Carbon Dioxide 19 L (22-30) mmol/L Anion Gap 12 (4-12) mmol/L BUN 14 (7-17) mg/dL Creatinine 1.04 H (0.7-1.0) mg/dL Estim Creat Clear Calc 56 ml/min Estimated GFR 57 L (59 - ) Glucose 148 H (65-110) mg/dL Calcium 9.4 (8.4-10.2) mg/dL Magnesium 1.8 (1.6-2.3) mg/dL Total Bilirubin 0.8 (0.2-1.3) mg/dL AST 62 H (14-36) U/L ALT 56 H (6-35) U/L Alkaline Phosphatase 51 (38-126) U/L Total Protein 6.7 (6.3-8.2) g/dL Albumin 4.1 (3.5-5.1) g/dL Lipase 139 (23-300) U/L Urine Color Dark yellow (Yellow) Urine Appearance Cloudy H (Clear) Urine pH 5.5 (5.0-9.0) Ur Specific Thida 1.027 (1.001-1.035) Urine Protein 1+ H (Negative) mg/dL Urine Glucose (UA) 3+ H (Negative) mg/dL Urine Ketones Trace H (Negative) mg/dL Ur Blood (Man) 3+ H (Negative) Urine Nitrate Negative (Negative) Urine Bilirubin 1+ H (Negative) Urine Urobilinogen 4.0 H (<2.0) mg/dL Add Ur Microanalysis Reviewed Leukocyte Esterase Rfl 2+ H (Negative) KATIE/UL Urine RBC >100 H (0-2) /hpf Urine WBC >100 H (0-3) /hpf Ur Squamous Epith Cells Many H (Few) /hpf Urine Bacteria 4+ H /hpf Urine Casts 3-5 POC Urine HCG, Qual Negative (Negative) Discharge Plan Discharge Clinical Impression: Abdominal pain, right lower quadrant, Urinary tract infection Patient Disposition: Home Condition: Improved Instructions: Antibiotic Form, Urinary Tract Infection in Women (DC) Additional Instructions: Please take the prescribed antibiotic as instructed for urinary tract infection. Return to emergency department if any new or worsening symptoms develop. Patient Language: Japanese Prescriptions: New cephalexin 500 mg capsule 500 mg PO Q12H 10 Days Qty: 20 0RF No Action fluticasone propionate [Flonase Allergy Relief] 50 mcg/actuation spray,suspension 1 spray intranasal DAILY Qty: 16 0RF Rx Instructions: administer into each nostril (DME) OneTouch Verio test strips Strip See Rx Instructions .Route Qty: 100 11RF Rx Instructions: Monitor glucose 3-4 times a day prazosin 2 mg capsule 2 mg PO QHS doxepin 10 mg capsule 25 mg PO DAILY (DME) Dexcom G7 Sensor Device See Rx Instructions .ROUTE .MEDSUPPLY Qty: 9 3RF Rx Instructions: Use to monitor glcuose Vraylar 6 mg capsule 6 mg PO DAILY Baqsimi 3 mg/actuation spray,non-aerosol 3 mg intranasal ONCE PRN (Reason: hypoglycemia) Qty: 1 0RF Rx Instructions: as a single dose buspirone 15 mg tablet 15 mg PO BID carvedilol 3.125 mg tablet 3.125 mg PO Q12H Qty: 180 1RF Rx Instructions: must administer with a meal/food Mounjaro 12.5 mg/0.5 mL pen injector 12.5 mg subcut WEEKLY Qty: 6 1RF diphenhydramine HCl [Benadryl] 25 mg Capsule 25 mg PO TID PRN (Reason: itching) lidocaine HCl-hydrocortison ac 3-0.5 % cream 1 applic RECTAL BID PRN (Reason: Pain) ferrous sulfate 325 mg (65 mg iron) Tablet 325 mg PO DAILY vitamin B complex Tablet 1 tablet PO DAILY cholecalciferol (vitamin D3) [Vitamin D3] 50 mcg (2,000 unit) Capsule 50 mcg PO DAILY meclizine 25 mg tablet 25 mg PO BID PRN (Reason: dizziness) 7 Days Qty: 14 0RF duloxetine 30 mg capsule,delayed release(DR/EC) 30 mg PO BID Qty: 180 1RF (DME) pen needle, diabetic [BD Ultra-Fine Shantelle Pen Needle] 32 gauge x 5/32 needle See Rx Instructions .ROUTE .MEDSUPPLY Qty: 300 1RF Rx Instructions: three times daily hydroxyzine pamoate [Vistaril] 25 mg capsule 50 mg PO Q4H PRN (Reason: Anxiety) albuterol sulfate 90 mcg/actuation HFA aerosol inhaler 1 puff INHALATION Q4H PRN (Reason: shortness of breath or wheezing) Qty: 6.7 1RF dexlansoprazole 60 mg capsule,biphase delayed releas 60 mg PO DAILY 30 Days Qty: 30 12RF cyclobenzaprine 10 mg tablet 10 mg PO TID PRN (Reason: muscle spasm) Qty: 60 1RF rizatriptan 5 mg tablet See Rx Instructions PO .COMPLEX PRN (Reason: Migraine Headache) Qty: 10 5RF Rx Instructions: take 1 tab at onset of headache; if no relief may repeat 1 tab after at least 2 hrs; max = 3 tabs/24 hr PO folic acid 1 mg tablet 1 mg PO DAILY Qty: 90 1RF atorvastatin 80 mg tablet 80 mg PO QHS Qty: 90 1RF lisinopril 2.5 mg tablet See Rx Instructions .ROUTE .COMPLEX Qty: 90 0RF Dose Instruction: Take 1 tablet by mouth once daily Rx Instructions: Take 1 tablet by mouth once daily pantoprazole 40 mg tablet,delayed release (DR/EC) See Rx Instructions .ROUTE .COMPLEX Qty: 90 1RF Dose Instruction: TAKE 1 TABLET BY MOUTH IN THE MORNING Rx Instructions: TAKE 1 TABLET BY MOUTH IN THE MORNING topiramate 200 mg tablet See Rx Instructions .ROUTE .COMPLEX Qty: 90 1RF Dose Instruction: Take 1 tablet by mouth once daily Rx Instructions: Take 1 tablet by mouth once daily Jardiance 25 mg tablet 25 mg PO DAILY Qty: 90 1RF Follow-up/Referrals: Sabine Parker NP [Primary Care Provider] - 3 Days Time of Disposition: 23:59
[2025-04-25 00:22] VITALS: BP 93/62; PULSE 77; RESP 18; O2SAT 99
== END 2025-04-25 00:22 | disposition home or self-care (01) ==
PROVIDERS: Emergency Provider Emergency Medicine; PCP Nurse Practitioner Family
DX: N39.0 Urinary tract infection, site not specified (principal); I15.2 Hypertension secondary to endocrine disorders; E55.9 Vitamin D deficiency, unspecified; E11.69 Type 2 diabetes mellitus with other specified complication; E78.5 Hyperlipidemia, unspecified; K74.60 Unspecified cirrhosis of liver; K21.9 Gastro-esophageal reflux disease without esophagitis; K58.2 Mixed irritable bowel syndrome; F31.81 Bipolar II disorder; F41.9 Anxiety disorder, unspecified; Z87.442 Personal history of urinary calculi; Z86.2 Personal history of diseases of the blood and blood-forming organs and certain disorders involving the immune mechanism; Z87.891 Personal history of nicotine dependence; Z90.710 Acquired absence of both cervix and uterus; Z90.49 Acquired absence of other specified parts of digestive tract; Z79.85 Long-term (current) use of injectable non-insulin antidiabetic drugs; Z79.899 Other long term (current) drug therapy; Z79.84 Long term (current) use of oral hypoglycemic drugs
CPT/HCPCS: 36415; 74177; 80053; 81001; 81025; 83690; 83735; 85025; 85055; 96361; 96365; 96375; 99284; J0696; J2405; J7030; Q9967

== ENCOUNTER 2025-05-25 21:08 | Emergency (ER) | payer OTHER, SELFPAY ==
--- NOTE | ~2025-05-25 | CT_ITS ---
EXAMINATION: CT abdomen pelvis wo con DATE: 05/26/2025 01:23 INDICATION: Right flank pain. History of stones. TECHNIQUE: Computed tomography (CT) of the abdomen and pelvis was performed without intravenous contr ast. The dose-length product was 241.97 mGy-cm. Automated exposure control and iterative reconstructi on technique were employed. COMPARISON: CT dated 04/24/2025. FINDINGS: Lung bases unremarkable. Heart size normal. No significant pleural or pericardial effusion. There is ascites. There is cirrhosis of the liver with splenomegaly, consistent with portal venous h ypertension. Multiple collateral vessels noted in the upper abdomen. Nonobstructing 8 mm right renal stone. Status post cholecystectomy. There is a left renal cyst. No ureteral stones or hydronephrosis. There is a liver cyst. There is atherosclerosis of the aorta without aneurysm. No lymphadenopathy. P ersistent mild thickening of the descending colon, suspicious for colitis. IMPRESSION: 1. Nonobstructing right nephrolithiasis. 2: Cirrhosis with splenomegaly and small volume of ascites. Findings compatible with portal venous h ypertension. 3: Persistent mild thickening of the descending colon, suspicious for colitis. Reviewed, dictated and finalized at location A. IMPRESSION: 1. Nonobstructing right nephrolithiasis. 2: Cirrhosis with splenomegaly and small volume of ascites. Findings compatibl e with portal venous hypertension. 3: Persistent mild thickening of the descending colon, suspicious for colitis.
[2025-05-25 21:11] VITALS: BP 111/76; PULSE 81; RESP 18; TEMP 36.6; O2SAT 99
--- OUTSIDE RECORDS SUMMARY | 2025-05-25 21:11 | XMS_ITS | Encounter Summary ---
Author Organization [facility] Address [address] [place] [address] Care Team Providers Care Staff Appraiser Name Role Phone Sadia Morris Primary Care Provider [phone] Sadia Morris Primary Care Provider [phone] Sadia Morris Unavailable Sabine Parker DAIRY MACHINE OPERATOR FARMWORKER-BACKEND PYTHON DEVELOPER Primary Care Provider Reason for Visit * Reason Onset Date Comments MEDICATION REFILL 01/21/2024 Encounter Details Date Type Department Care Team (Late st Contact Info) Description 01/21/2024 Refill [facility] [address] [place] [address], [place] [id number] Saolmon Sapp MD [address] [place] [address] [place] [address] MEDICATION REFILL Social History Tobacco Use Types [...] PM CDT Legal Sex Female 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 Gender Identity Female 04/21/2024 2:38 PM CDT [...] Department Care Team (Latest Contact Info) Description 08/09/2025 10:30 AM CDT Hospital Encounter [facility] [address] [place] [address] Salomon Sapp MD [address] [place] [address] [address] [place] [address] Surgery General 08/09/2025 10:30 AM CDT - 08/09/2025 11:00 AM CDT Surgery [facility] [address] [place] [address] [place] [address] [place] [address] [address] [place] [address] EGD--w/ Sekou 09/24/2025 9:30 AM LUNCHROOM 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 SERVICE SUPERVISOR Appointment [facility] [address] [place] [phone] Salomon Sapp MD [address] [place] [address] [address] [place] [address] 09/24/2025 10:30 AM LUNCHROOM FOOD SERVICE SUPERVISOR Office Visit [facility] - GI [address] [place] [address], [place] [phone] Salomon Sapp MD [address] [place] [address] [address] [place] [address] Scheduled Procedures Name Priority Associated Diagnoses Date/Ti me ESOPHAGOGASTRODUODENOSCOPY ( EGD) DIAGNOSTIC 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 Author Medication Management General On track( 025 1:27 PM CDT) Mary Kay Andrade, RN Note: Expected end date: ongoing Interventions: Take all medications as prescribed Let your doctor know right away about any changes in your medications Make sure to request a refill of your medication at least one week prior to your last dose documented as of this encounter Visit Diagnoses Not on filedocumented in this encounter Care Teams Staff Appraiser Relationship Specialty Start Date End Date Sadia Morris [address] [place] [address] [place] [id number] PCP - General 09/24/23 09/12/24 Sadia Morris [address] [place] [address] [place] [address] PCP - General 09/13/24 05/06/25 Sabine Parker, GUS-BACKEND PYTHON DEVELOPER [address] [place] [address] PCP - General Nurse Practitioner Family 05/07/25 Sadia Morris [facility] [facility] [address] [place], [place] [id number] 09/13/24 documented as of this encounter
--- OUTSIDE RECORDS SUMMARY | 2025-05-25 21:11 | XMS_ITS | Clinical Summary ---
Author Organization [facility] Address [address], [facility] [place] [address] Phone Care Team Providers Care Authorizer Name Role Phone Ric Malik MD Unavailable [phone] Ric Malik MD Unavailable [phone] Natacha Hoyt MD Primary Care Provider Allergies Active Allergy Reactions Criticality Noted Date Comments Sumatriptan Other (see Comments) 03/15/2023 [place] Oil Hives,Nausea,Vomitin g,Other (see Comments) Low 04/11/2017 [...] Continuous Glucose Sensor (Dexcom G7 Sensor) [facility] APPLY 1 SENSOR TOPICALLY, CHANGE AND REPLACE [...] Subcutaneous route. 10/10/20 24 Active nystatin (MYCOSTATIN) 852848 UNIT/GM Cream Apply. 11/24/19 25 Active pantoprazole [...] SUBCUTANEOUSLY ONCE A WEEK 03/22/20 25 Active Active Problems Problem Noted Date Diagnosed Date Iron deficiency 05/16/2022 Anemia due to multiple mechanisms 02/06/2018 Thrombocytopenia 02/06/2018 Mediastinal lymphadenopathy 05/30/2017 Abdominal lymphadenopathy 04/11/2017 Hepatosplenomegaly 04/11/2017 Liver lesion 04/11/2017 Encounters Date Type Department Care Team Description 04/29/2025 9:30 AM CDT Lab [facility] [address] [address] Lab, [facility] Thrombocytopenia (HCC); Anemia due to multiple mechanisms; Mediastinal lymphadenopathy 04/29/2025 Travel 04/15/2025 1:30 PM CDT Lab [facility] [address] [phone] Lab, [facility] [place] Iron deficiency; B12 deficiency; Thrombocytopenia (HCC); 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) 04/15/2025 1:00 PM CDT Office Visit [facility] [address] [phone] Anne Rodriguez APRN, ADVERTISING WRITER Iron deficiency (Primary Dx); B12 deficiency; Thrombocytopenia (HCC); 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) 04/15/2025 Results Follow-Up [facility] [address] [phone] Anne Rodriguez APRN, ADVERTISING WRITER COMPLETE BLOOD COUNT (CBC) WITH DIFF 04/15/2025 [...] Care Team (Late st Contact Info) Description 06/11/2025 3:00 PM CDT Office Visit [facility] [address] [place] [address] Rubens Claros MD [address] [place] [address] 07/15/2025 1:00 PM CDT Office Visit [facility] [address] [phone] Ric Malik MD [address] [facility] [address] [place], [place] [address] Health Maintenance Due Date Last Done Comments Mammogram 1978 TdaP Immunization 1978 Pneumococcal Immunization Combined (1 of 2 - PCV) 1997 Pap Smear 1999 Cervical Cancer Screening (CCS) 2008 HPV/Cotest 2008 Discussion re Starting/Frequency of Mammograms 2018 Cologuard 2023 Immunochemical Fecal Occult Blood 2023 SARS-COV-2 Immunization ( season) 2024 Influenza Immunization (#1) 06/14/202511/2019, 09/14/2019 Colonoscopy 08/27/2032 08/27/2022 Colorectal Cancer Screening [...] Procedure Name Priority Date/Time Associated Diagnosis Comments COMPLETE BLOOD COUNT (CBC) WITH DIFF Routine 04/29/2025 9:28 AM CDT Thrombocytopenia (HCC) Anemia due to multiple mechanisms Mediastinal lymphadenopathy VITAMIN B12 [id number] [place] Routine 04/15/2025 1:22 PM CDT IRON AND TIBC [id number] [place] Routine 04/15/2025 1:22 PM CDT FOLATE [id number] [place] Routine 04/15/2025 1:22 PM CDT FERRITIN [id number] [place] Routine 04/15/2025 1: 22 PM CDT COMP. 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 WBC 5.5 4.0 - 10.0 10*3/uL [facility] HGB 12.7 11.2 - 15.7 g/dL [facility] HCT 37.5 34.1 - 44.9 % [facility] PLT 56(L) 163 - 369 10*3/uL [facility] MPV 11.1 9.4 - 12.4 fL [facility] RBC 4.44 3.93 - 5.22 10*6/uL [facility] MCV 85 79 - 95 fL [facility] MCH 28.6 25.6 - 32.2 pg [facility] MCHC 33.9 32.2 - 36.5 g/dL [facility] RDW 16.8(H) 11.6 - 14.4 % [facility] Absolute Neutrophil Count 4,526 cells/uL [facility] Absolute Seg Count 4,526 1,440 - 6,600 cells/uL [facility] Absolute Lymph Count 718(L) 760 - 4,000 cells/uL [facility] Absolute [place] Count 221 160 - 1,200 cells/uL [facility] Absolute Eos Count 55 0 - 300 cells/uL [facility] Segmented Neutrophils 82(H) 36 - 66 % [facility] Lymphocytes 13(L) 19 - 40 % [facility] Monocytes 4 4 - 12 % [facility] Eosinophils 1 0 - 3 % [facility] WBC Estimate Normal [facility] Platelet Estimate Low [facility] RBC Morphology [facility]normal [facility] Anisocytosis 1+ [facility] Large Platelets Present [facility] Blood 04/29/2025 9:28 AM CDT Narrative [facility] - 04/29/2025 11:13 AM CDT Release to patient->Immediate Anne Rodriguez DISPOSAL PLANT OPERATOR, ADVERTISING WRITER HEMATOLOGY ORDERABLES Final Result [facility] [place] [address], * (ABNORMAL) VITAMIN B12 [id number] [place] (04/15/2025 1:22 PM CDT) VITAMIN B12 1,549(H) 232 - 1,245 PG/ML [facility] 04/15/2025 1:22 PM CDT Narrative [facility] - 04/16/2025 7:08 AM CDT TESTING PERFORMED AT: [] [facility], [address] [place] [address], [place], [address], PHONE: [phone], SULFURIC ACID PLANT SUPERVISOR: DANNY CHRISTIAN, PHD Anne Rodriguez APRN, ADVERTISING WRITER LAB SEND OUTS Final Result [facility] [place] [address] [place] [address], [place] [phone] * (ABNORMAL) IRON AND TIBC [id number] [place] (04/15/2025 1:22 PM CDT) Iron Bind.Cap.(TIBC) 262 250 - 450 UG/DL [facility] UIBC 226 131 - 425 UG/DL [facility] Iron, Serum 36 27 - 159 UG/DL [facility] Iron Saturation 14(L) 15 - 55 % [facility] 04/15/2025 1:22 PM CDT Narrative [facility] - 04/16/2025 7:08 AM CDT TESTING PERFORMED AT: [[facility], [address] [place] [address], [address], PHONE: [phone], SULFURIC ACID PLANT SUPERVISOR: DANNY CHRISTIAN, PHD Anne Rodriguez APRN, ADVERTISING WRITER LAB SEND OUTS Final Result Performing Organization Address City/[facility] Co de Phone Number [facility] [place] [address], [place] [phone] * FOLATE [id number] [place] (04/15/2025 1:22 PM CDT) Folate (Folic Acid), Serum >20.0 >3.0 NG/ML [facility] Comment: A SERUM FOLATE CONCENTRATION OF LESS THAN 3.1 NG/ML IS CONSIDERED TO REPRESENT CLINICAL DEFICIENCY. 04/15/2025 1:22 PM CDT Narrative [facility] - 04/16/2025 7:08 AM CDT TESTING PERFORMED AT: [[facility]] [facility], [address] [place], [address], PHONE: [phone], SULFURIC ACID PLANT SUPERVISOR: DANNY CHRISTIAN, PHD Anne Rodriguez APRN, ADVERTISING WRITER LAB SEND OUTS Final Result Performing Organization Address [facility]/ZIP Co de Phone Number [facility] [address] [place] [address], [place] [phone] * FERRITIN [id number] [place] (04/15/2025 1:22 PM CDT) Ferritin, Serum 96 15 - 150 NG/ML [facility] 04/15/2025 1:22 PM CDT Narrative [facility] - 04/16/2025 7:08 AM CDT TESTING PERFORMED AT: [CB] [facility], [address] [place] [address], [address], PHONE: [phone], SULFURIC ACID PLANT SUPERVISOR: DANNY CHRISTIAN, PHD Anne Rodriguez APRN, ADVERTISING WRITER LAB SEND OUTS Final Result Performing Organization Address [facility]/ZIP Co de Phone Number [facility] [address] [place] [address], [place] [phone] * (ABNORMAL) COMP. METABOLIC PANEL [id number] [place] (04/15/2025 1:22 PM CDT) GLUCOSE, SERUM 134(H) 70 - 99 MG/DL [facility] BUN 15 6 - 24 MG/DL [facility] CREATININE, SERUM 1.01(H) 0.57 - 1.00 MG/DL [facility] EGFR 70 >59 ML/MIN/1.7 3 [facility] BUN/CREATININE RATIO 15 9 - 23 [facility] SODIUM, SERUM 141 134 - 144 MMOL/L [facility] POTASSIUM, SERUM 3.8 3.5 - 5.2 MMOL/L [facility] CHLORIDE, SERUM 107(H) 96 - 106 MMOL/L [facility] CARBON DIOXIDE, TOTAL 18(L) 20 - 29 MMOL/L [facility] CALCIUM, SERUM 9.0 8.7 - 10.2 MG/DL [facility] PROTEIN, TOTAL, SERUM 6.0 6.0 - 8.5 G/DL [facility] ALBUMIN, SERUM 3.9 3.9 - 4.9 G/DL [facility] GLOBULIN, TOTAL 2.1 1.5 - 4.5 G/DL [facility] BILIRUBIN, TOTAL 0.6 0.0 - 1.2 MG/DL [facility] ALKALINE PHOSPHATASE, S 64 44 - 121 IU/L [facility] AST (SGOT) 38 0 - 40 IU/L [facility] ALT (SGPT) 27 0 - 32 IU/L [facility] 04/15/2025 1:22 PM CDT Narrative [facility] - 04/16/2025 7:08 AM CDT TESTING PERFORMED AT: [] [facility], [address] [place] [address], [address], PHONE: [phone], SULFURIC ACID PLANT SUPERVISOR: DANNY CHRISTIAN, PHD Anne Rodriguez APRN, ADVERTISING WRITER LAB SEND OUTS Final Result [facility] [place] [address], from Last 3 Months Insurance MEDICAID [employer]ICAID [employer] Care Teams Authorizer Relationship Specialty Start Date End Date Natacha Hoyt MD [facility] [address] [place] [address] PCP - General Family Medicine 08/29/23 Ric Malik MD [address] [place] [phone] Consulting Physician Oncology 05/22/22 Ric Malik MD [address] [place] [address] Consulting Physician Oncology 08/28/23
--- OUTSIDE RECORDS SUMMARY | 2025-05-25 21:11 | XMS_ITS | Clinical Summary ---
Author Organization [facility] Address [address] [place] [address] Care Team Providers Care Director Diversity Name Role Phone Sadia Morris NP Primary Care Provider + Allergies Active Allergy Reactions Criticality Noted Date Comments Sumatriptan Muscle pain,Other (See comments) Medium [place] Oil Hives Medium 02/13/2022 Medications cyclobenzaprine (FLEXERIL) [...] Encounters Date Type Department Care Team Description 05/20/2025 Documentation [facility] Physical Therapy [address] [place] [id number] Quiana Campbell, PT from Last 3 Months Surgical History Surgery Date Site/Laterality Comments KNEE SURGERY CHOLECYSTECTOMY HYSTERECTOMY DILATION AND CURETTAGE OF UTERUS OVARIAN CYST REMOVAL ANKLE SURGERY LITHOTRIPSY CARPAL TUNNEL RELEASE ELBOW SURGERY Medical History Medical History Date Comments GERD (gastroesophageal reflux disease) Liver cirrhosis Hypertension Diabetes mellitus (HCC) Migraines Hypercholesteremia Bipolar [...] on file Legal Sex Female 11:18 PM CYLINDER BATCHER Gender Identity Not on file Sexual Orientation Not on file Obstetrics History Last Filed Vital Signs Vital Sign Reading Time Taken Comments Blood Pressure 122/71 09/13/2024 3:03 PM CYLINDER BATCHER Pulse 64 09/13/2024 3:03 PM CYLINDER BATCHER Temperature 36.2 C (97.2 F) 09/13/2024 3:03 PM CYLINDER BATCHER Respiratory Rate 16 09/13/2024 3:03 PM CYLINDER BATCHER Oxygen Saturation 97% 09/13/2024 3:03 PM CYLINDER BATCHER Inhaled Oxygen Concentration - - Weight 90.3 kg (199 lb) 09/12/2024 2:18 AM CYLINDER BATCHER Height 157.5 cm (5' 2) 09/12/2024 2:18 AM CYLINDER BATCHER Body Mass Index 36.4 09/12/2024 2:18 AM CYLINDER BATCHER Plan of Treatment Health Maintenance Due Date [...] Comments HEMOGLOBIN A1C Routine 09/12/2024 4:58 AM CYLINDER BATCHER EGFR STAT 09/11/2024 11:22 PM CYLINDER BATCHER from Last 3 Months or Most Recently Relevant to Health Maintenance Results * Hemoglobin A1c (09/12/2024 4:58 AM CYLINDER BATCHER) Hgb A1C 5.4 4.0 - 5.6 % Estimated Average Glucose 108 mg/dL [facility] ([place]) Comment: The ADA recommends reporting an estimated Average Glucose (eAG) with all Hemoglobin A1c results using the equation derived from a study of 507 normal and diabetic adults. Minority populations were underrepresented and children were not included. (Diabetes Care 31:5832-4088, 2008). The eAG is not equivalent to a fasting glucose. Blood 09/12/2024 4:58 AM CYLINDER BATCHER 09/12/2024 5:07 AM CYLINDER BATCHER us Dionicio Levin MD LAB BLOOD ORDERABLES Final Resu lt Performing Organization Address City/[facility]/ZIP Co de Phone Number [facility] ([place]) [address] [facility] [place] [address] * eGFR (09/11/2024 11:22 PM CYLINDER BATCHER) eGFR 69 >=60 mL/min/1. 73 m2 Comment: [...] reviewed 2021. Blood 09/11/2024 11:2 2 PM CYLINDER BATCHER 09/11/2024 11:22 PM CYLINDER BATCHER us Valdez Lee MD LAB BLOOD ORDERABLES Final R esult [facility] ([place]) [address] [facility] [place] [address] from Last 3 Months or Most Recently Relevant to Health Maintenance Insurance [facility] Advance Directives For more information, please contact: [phone] * LIMITED - No CPR (Latest Code [...] AM 09/12/2024 5:23 AM Care Teams Director Diversity Relationship Specialty Start Date End Date Sadia Morris NP [facility] [facility] [place] [address] PCP - General Nurse Practitioner 02/28/24
--- OUTSIDE RECORDS SUMMARY | 2025-05-25 21:11 | XMS_ITS | Clinical Summary ---
Author Organization [facility] Address [address] [place] [address] Care Team Providers Care Service Desk Analyst Name Role Phone Sadia Morris Unavailable Sabine Parker APRN-ELECTRICAL SIGN WIRER HELPER Primary Care Provider Source Comments [facility],non-owned Affiliates and Associated Physician Practices is amultiple site organization consisting of ambulatory clinics and hospital sitesin [place], [place], [place] and [place]. This disclosure is being madepursuant to the Care Everywhere program and may not contain all information available regarding this patient. Last updated 18.[facility] Allergies Active Allergy Reactions Criticality Noted Date Comments Sumatriptan Myalgias 03/15/2023 Sumatriptan Headache 10/07/2024 Lancing Oil Rash,Itching,Skin Reactions Medium 08/01/2017 actual sunflowers themselves Lancing Oil Nausea and/or Vomiting 10/07/2024 Medications * Be aware that medications may not be up to date on this document. Alwaysverify current medications with the patient. cyclobenzaprin e (FLEXERIL) 10 MG tablet Take 1 (one) tablet by mouth 3 times daily as needed for Muscle Spasms 08/01/20 17 Active diphenhydrAMIN E (BENADRYL) 25 MG tablet Take 1 (one) tablet by mouth every 6 hours as needed for Itching, Allergies or Insomnia 08/01/20 17 Active aspirin-acetam inophen-caffei ne 250-250-65 MG tablet Take 1 (one) tablet [...] USE DIRECTED TWICE DAILY WITH INSULIN 02/09/20 20 Active insulin NPH (HumuLIN N; NovoLIN N) vial Inject 70 (seventy) Units subcutaneously 3 times daily Active Dexlansoprazol e (DEXILANT PO) Take 60 mg by mouth once daily Active hydrOXYzine pamoate (Vistaril) 25 MG capsule Take 1 (one) capsule by mouth 4 times daily as needed Active Glucagon 3 MG/DOSE POWD [place] 3 mg into the nose as needed [...] for Itching 30 tablet 10/10/20 24 Active Additional Information Patient not taking.Reason: Patient adjusted (Taking Vistaril), Reported on 05/07/2025 ondansetron, disintegrating , (Zofran ODT) 4 MG tablet Take 1 (one) tablet by mouth every 6 hours as needed for Nausea/Vomiting Allow tablet to dissolve on the tongue 30 tablet 10/10/20 Active atorvastatin (Lipitor) 80 MG tablet Take 1 (one) tablet by mouth at bedtime 30 tablet 10/10/20 Active prazosin (Minipress) 2 MG capsule Take 1 (one) capsule by mouth at bedtime 30 capsule 10/10/20 Active polyethylene glycol 3350 (Miralax) 17 g packet Take 17 (seventeen) g by mouth once daily as needed for Constipation 30 packet 10/10/20 Active pantoprazole EC (Protonix) 40 MG tablet Take 1 (one) tablet by mouth once daily 30 tablet 10/10/20 Active insulin NPH pen Inject 30 (thirty) Units subcutaneously 2 times daily, before breakfast and supper 3 mL 10/10/20 Active Additional Information Patient not taking.Reason: Patient adjusted (Patient reports she is not using insulin anymore), Reported on 05/07/2025 Ferrous Sulfate (IRON PO) Active Continuous Glucose Sensor (Silent [employer] G7 Sensor) [facility] [place]PLY 1 SENSOR TOPICALLY, CHANGE AND REPLACE EVERY 10 DAYS. USE TO MONITOR GLUCOSE. 09/01/20 24 Active nystatin (Mycostatin) 233178 UNIT/GM cream Apply to affected area 2 times daily 11/24/19 25 Active rizatriptan (Maxalt) 5 MG tablet Take 1 (one) tablet by mouth once 11/20/19 25 Active carvedilol (Coreg) 6.25 MG tablet Take 1 (one) tablet by mouth 2 times daily with morning and evening meal 180 tablet 3 12/16/19 25 Active bisacodyl (Dulcolax) 10 MG suppository Insert 1 (one) suppository into the rectum once as needed for Constipation (if no BM 24 hours after oral bisacodyl) 30 suppository 10/10/20 24 025 Disconti nued(Lis t Clean-Up ) Active Problems Problem Noted Date Diagnosed Date [...] Encounters Date Type Department Care Team Description 05/10/2025 Patient Outreach [facility] ENDOSCOPY [address] [place] [address] Marguerite Clemens RN 05/07/2025 12:30 PM CDT Office Visit [facility] - [facility] [address] [facility] [place] [address] Salomon Sapp MD 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) (Primary Dx); Liver lesion; Gastro-esophageal reflux disease without esophagitis; Secondary esophageal varices with bleeding (HCC) 05/07/2025 Travel 05/03/2025 11:21 AM CDT Anesthesia Event [facility] ENDOSCOPY [address] [place] [address] Ninfa Cruz MD 05/03/2025 10:30 AM CDT - 05/03/2025 11:00 AM CDT Surgery [facility] ENDOSCOPY [address] [place] [address] Salomon Sapp MD EGD +/- banding w/ Sekou 05/03/2025 9:01 AM CDT - 05/03/2025 12:38 PM CDT Hospital Encounter [facility] LIBAN OP [address] [place] [address] Salomon Sapp MD Surgery General Discharge Disposition: Home or Self Care 05/03/2025 Travel 04/19/2025 Patient Outreach [facility] ENDOSCOPY [address] [place] [address] Marguerite Clemens RN 03/26/2025 Orders Only [facility] - GI [facility] [place] [address] Salomon Sapp MD 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); Secondary esophageal varices without bleeding (HCC) 03/22/2025 9:22 AM CDT - 03/22/2025 11:59 PM CDT Hospital Encounter [facility] MRI [address] [place] [address] Salomon Sapp MD Discharge Disposition: Home or Self Care 03/22/2025 Travel 03/05/2025 Orders Only [facility] - GI [address] [place] [address] Salomon Sapp MD 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 Not hard at all 10/07/2024 [facility] [place] [facility] - Occupational Stress [...] time in the past 12 m [facility], were you homeless or living in a halfway (including now)? No 10/07/2024 Comments No Sex and Gender Information Value Date Recorded Sex Assigned at Female 04/21/2024 2:38 PM CDT Legal Sex Female 5:23 PM THEATRICAL RIGGER Gender Identity Female 04/21/2024 2:38 PM CDT Sexual Orientation Straight 04/21/2024 2: 38 PM CDT Last Filed Vital Signs Vital Sign Reading Time Taken Comments Blood Pressure 102/68 05/07/2025 1:17 PM CDT Pulse 90 05/07/2025 1:17 PM CDT Temperature 36.8 C (98.2 F) 05/07/2025 1:17 PM CDT Respiratory Rate 10 05/03/2025 12:1 5 PM CDT Oxygen Saturation 100% 05/07/2025 1:17 PM CDT Inhaled Oxygen Concentration - - Weight 71.6 kg (157 lb 12.8 oz) 05/07/2025 1:17 PM CDT Height 157.5 cm (5' 2) 05/07/2025 1:17 PM CDT Body Mass Index 28.86 05/07/2025 1:17 PM CDT Plan of Treatment Upcoming Encounters Date Type Department Care Team (Latest Contact Info) Description 08/09/2025 10:30 AM CDT Hospital Encounter [facility] ENDOSCOPY [address] [place] [address] Salomon Sapp MD [address] [place] [address] [address] [place] [address] Surgery General 08/09/2025 10:30 AM CDT - 08/09/2025 11:00 AM CDT Surgery [facility] ENDOSCOPY [address] [place] [address] Salomon Sapp MD [address] [place] [address] [address] [place] [address] EGD--w/ Sekou 09/24/2025 9:30 AM THEATRICAL RIGGER Appointment [facility] US [facility] [place] [address] Salomon Sapp MD [address] [place] [address] [address] [place] [address] 09/24/2025 10:30 AM THEATRICAL RIGGER Office Visit [facility] - GI [address] [facility] [place] [address] Salomon Sapp MD [address] [place] [address] [place] [address] Scheduled Procedures Name Priority Associated Diagnoses Date/Ti me ESOPHAGOGASTRODUODENOSCOPY ( EGD) DIAGNOSTIC 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 Author Medication Management General On track( 1:27 PM CDT) No Mary Kay Gonzalez, RN Note: Expected end date: ongoing Interventions: Take all medications as prescribed Let your doctor know right away about any changes in your medications Make sure to request a refill of your medication at least one week prior to your last dose Safety General On track( 1:27 PM CDT) No Nay Miller, SAMI Note: Expected end date: ongoing Interventions: Your nurse will assess your risk for falls/injury each visit Use appropriate and safe transfer methods Make sure appropriate safety devices are available and within reach Review the fall prevention instruction sheet given to you during your visit Be aware of medications that could predispose you to falling Wear non-skid/rubber sole footwear Wear glasses/hearing aid Keep personal items within easy reach Use some light at night in your room Keep walking paths clutter free and clear Maintain an unobstructed path to the bathroom Procedures Procedure Name Priority Date/Time Associated Diagnosis Comments [place] ED EGD FLEX TRANSORAL DX 05/03/2025 11:16 AM CDT Esophageal varices without bleeding, unspecified esophageal varices type (HCC) Special Needs Message Received: Today Salomon Sapp MD Johnson, Sarah N., RN P{lease schedule for EGd with banding in 3 months Thx Salomon Sapp MD Received Date Received Time Feb 01, 2025 9:55 AM EGD Routine 05/03/2025 11:12 AM CDT GLUCOSE - POINT OF CARE Routine 05/03/2025 9:53 AM CDT MRI ABDOMEN WWO CONTRAST Routine 03/22/2025 9:48 AM CDT 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) Liver lesion COMPREHENSIVE METABOLIC PANEL 01/21/2025 12:17 PM CDT HEMOGLOBIN A1C Routine 10/08/2024 9:31 AM THEATRICAL RIGGER ENDOSCOPY, COLON, DIAGNOSTIC Routine 08/27/2022 12:28 PM THEATRICAL RIGGER HEPATITIS C ANTIBODY Routine 11/14/2017 10:15 AM THEATRICAL RIGGER from Last 3 Months or Most Recently Relevant to Health Maintenance Results * EGD (05/03/2025 11:12 AM CDT) Report Endoscopy POC Endoscopy Department Report _ Patient Name: Beulah Garcia Procedure Date: 05/03/2025 11:12 AM Date of : 1980 Classification: Outpatient Gender: Female Ethnicity: Not or Race: White _ Providers: Salomon Sapp MD Referring MD: Procedure: Upper GI endoscopy Indications: Dysphagia, Esophageal varices with bleeding, Follow-up of esophageal varices with bleeding, For therapy of esophageal varices with bleeding Medications: Monitored Anesthesia Care Description of Procedure: [...] The patient tolerated the procedure well. Findings: A medium post variceal banding scar was found in the lower third of the esophagus, 35 cm from the incisors. The scar tissue was healthy in appearance. There was evidence of mild narrowing in the esophagus at this area Grade II varices were found in the lower third of the esophagus. They were 5 mm in largest diameter. Two bands were successfully placed with complete eradication, resulting in deflation of varices. There was no bleeding during and at the end of the procedure. The entire examined stomach was normal. The cardia and gastric fundus were normal on retroflexion. The examined duodenum was normal. Estimated Blood Loss: Estimated blood loss was minimal. Complications: No immediate complications. Impression: - Scar in the lower third of the esophagus. - Grade II esophageal varices. Completely eradicated. Banded. - Normal stomach. - Normal examined duodenum. - No specimens collected. Recommendation: - Patient has a contact number available for emergencies. The signs and symptoms of potential delayed complications were discussed with the patient. Return to normal activities tomorrow. Written discharge instructions were provided to the patient. - Mechanical soft diet for 1 day then chew food well and slow eating x 1 month. - Continue present medications. - Repeat upper endoscopy in 3 months for endoscopic band ligation vs balloon dilation. - Return to liver clinic as previously scheduled. Attending Participation: I personally performed the entire procedure. Procedure Code(s): --- Professional --- 09744, Esophagogastroduo denoscopy, flexible, transoral; with band ligation of esophageal/gastri c varices Diagnosis Code(s): --- Professional --- K22.89, Other specified disease of esophagus R13.10, Dysphagia, unspecified I85.01, Esophageal varices with bleeding CPT copyright 2021 [employer] [employer]. All rights reserved. The codes documented in this report are preliminary and upon care transitions nurse review may be revised to meet current compliance requirements. _ Salomon Sapp MD 05/03/2025 11:45:42 AM This report has been signed electronically. Note Initiated On: 05/03/2025 11:12 AM Number of Addenda: 0 [facility] [address] [place] [address] [facility] 05/03/2025 11:1 2 AM CDT Salomon Sapp MD GI PROCEDURE ORDERABLES Edited Result - Final Performing Organization Address City/[facility]/ZIP Co de Phone Number [facility] * (ABNORMAL) GLUCOSE - POINT OF CARE (05/03/2025 9:53 AM CDT) Glucose WB/POC 143(H) 70 - 99 mg/dL 05/03/2025 9:55 AM CDT [facility] Specimen Type Arterial/C apillary 05/03/2025 9:55 AM CDT [facility] Blood BLOOD SPECIMEN / Unknown 05/03/2025 9:53 AM CDT 05/03/2025 9:55 AM CDT us Salomon Sapp MD LAB - POINT OF CARE ORDERABLES Final Result [facility] [address] [place] [address], [facility] [phone] * MRI Abdomen Wwo Contrast (03/22/2025 9:48 [...] Sapp MD MR ORDERABLES Final Result * (ABNORMAL) COMPREHENSIVE METABOLIC PANEL (01/21/2025 12:17 [...] 29 U/L [facility] Comment: Test Performed at: [facility] [address] [place] [address] GISSEL OLIVER MD 01/21/2025 12:1 7 PM CDT 01/21/2025 12:18 PM CDT Salomon Sapp MD LAB - CHEMISTRY ORDERABLES Fin al Result Performing Organization Address City/State/[facility] Co de Phone Number [facility] [address] [place] [address] * HEMOGLOBIN A1C (10/08/2024 9:31 AM [facility]) Hemoglobin A1c 5.3 <=5.6 % 10/08/2024 1:40 PM [facility] Estimated Average Glucose 105 mg/dL 10/08/2024 1:40 PM [facility] Comment: HbA1c Interpretation: Normal : < 5.7% Pre-diabetes: 5.7-6.4% Diabetes: Equal to or greater than 6.5% Test results diagnostic of diabetes should be repeated for confirmation. Treatment target values recommended by ADA and other clinical organizations should be used to evaluate metabolic control in patients. Reference: [place] [employer], Standards of Care in Diabetes -2020 In patients 70 years and older consider HbA1c target range of 7.0-7.5% (Reference: Garcia Contreras et al. JAMDA. 2012) The Sebia assay for the measurement of HbA1c is a National Glycohemoglobin Standardization Program (NGSP) certified method. Blood BLOOD SPECIMEN / Unknown Lab Venipuncture / Unknown 10/08/2024 9:31 AM THEATRICAL RIGGER 10/08/2024 9:59 AM THEATRICAL RIGGER us Ron Dawson MD LAB - CHEMISTRY ORDERABLES Final Result [address] [address], [facility] [phone] * ENDOSCOPY, COLON, DIAGNOSTIC (08/27/2022 12:28 PM THEATRICAL RIGGER) Report Endoscopy POC Endoscopy Department Report _ [...] entire procedure. Procedure Code(s): --- Professional --- 12673, Colonoscopy, flexible; with removal of tumor(s), polyp(s), or other lesion(s) by snare technique Diagnosis Code(s): --- Professional --- K63.5, Polyp of colon K64.4, Residual hemorrhoidal skin tags R10.84, Generalized abdominal pain K92.1, Melena (includes Hematochezia) CPT copyright 2019 [place] [employer]. All rights reserved. The codes documented in this report are preliminary and upon care transitions nurse review may be revised to meet current compliance requirements. Salomon Sapp MD 08/27/2022 1:27:31 PM This report has been signed electronically. Note Initiated On: 08/27/2022 12:28 PM Number of Addenda: [id number] [place] [address] 08/27/2022 12:2 8 PM THEATRICAL RIGGER Salomon Sapp MD GI PROCEDURE ORDERABLES Edited Result - Final [facility] * HEPATITIS C ANTIBODY (11/14/2017 10:15 AM THEATRICAL RIGGER) Hepatitis C Antibody Non-react [facility] Comment: Hepatitis C Antibody screen indicates no serologic evidence of past or current infection with Hepatitis C Virus. Patients with unexplained liver disease who are immunocompromised or suspected of having acute Hepatitis C infection may benefit from Nucleic Acid Test (USMAN) for Hepatitis C Viral RNA to confirm Hepatitis C status. Blood specimen (specimen) BLOOD SPECIMEN / Unknown 11/14/2017 10:15 AM THEATRICAL RIGGER 11/14/2017 11:03 AM THEATRICAL RIGGER us Verito Mcclendon MD LAB - CHEMISTRY ORDERABLES Final Result [facility] [address] [place] [address], [facility] [phone] from Last 3 Months or Most Recently Relevant to Health Maintenance Insurance [facility] SELF PAY NO INSURANCE Member Subscriber Plan / Payer (Ef fective for All Dates) Name:Miranda Garciasara Melo Member ID:Not on file Relation to Subscriber:Not on file Name:MIRANDA GARCIABEULAH M Subscriber ID:Not on file (Home) Address: [address] [place] [address] [place] [address] Payer ID:Not on file Group ID:Not on file Type:Self Pay Address: [place], [place] [address] [place] [id number] Advance Directives * Full Code (Latest Code Status on File) Date Activated Date Inactivated Comments 10/07/2024 6:10 PM 10/11/2024 5:22 PM Care Teams Service Desk Analyst Relationship Specialty Start Date End Date Sabine Parker APRN-[place] [address] [place] [address] PCP - General Nurse Practitioner Family 05/07/25 Sadia Morris [address] [address] 09/13/24
--- OUTSIDE RECORDS SUMMARY | 2025-05-25 21:11 | XMS_ITS | Patient Health Record ---
Author Organization [facility] Address [address] [place] [address] Care Team Providers Care Maintenance Truck Driver Name Role Phone Allie Lopez Primary Care Provider Allergies Allergen (clinical drug ingredient) Drug/Non Drug Allergy documented on EMR Reaction Allergy Type Onset Date Status [place] Oil sunflower oil (uncoded) rash Allergy Active [...] early 20's. NO ETOH since 2020. ETOH, C ocaine, opium, cannabis in late teens and early [...] Status Risk Notes Problem Generalized anxiety disorder (88682226) Generalized anxiety disorder (F41.1) Active confirmed Problem Bipolar 1 disorder (739591478) Bipolar 1 disorder (F31.9) Active confirmed Problem Tobacco user (508256607) Nicotine addiction (F17.200) Active confirmed Encounters Encounter Location Date Provider Diagnosis [facility] [address] [address] 06/18/2024 Allie [place] Bipolar 1 disorder F31.9 [facility] [address] [address] 08/18/2024 Allie Petersburg Bipolar 1 disorder F31.9 and Nicotine addiction F17.[address], [place] [address] 09/29/2024 Allie John Bipolar 1 disorder F31.9 and Nicotine addiction F17.200 [facility] [address] [address] 12/01/2024 Allie John Bipolar 1 disorder F31.9 [facility] [address] [address] 02/23/2025 Allie Petersburg Bipolar 1 disorder F31.9 and Nicotine addiction F17.200 [facility] [address] [address] 07/28/2024 Allie John [facility] [address] [address] 10/12/2024 Allie Lopez [facility] [place] [address] 05/11/2025 Allie Lopez Bipolar 1 disorder F31.9 Assessments Encounter Date Diagnosis (ICD Code) Assessment Notes Treatment Notes Treatment Clinical Notes Section Notes 06/18/2024 Bipolar 1 disorder (ICD-10 - F31.9) CancelRx Response got Denied on 2024-09-28 14:02:39 for 'Doxepin HCl 6 MG Tablet'Pharmacy Notes: Patient unknown to the Prescriber. 08/18/2024 Bipolar 1 disorder (ICD-10 - F31.9) 08/18/2024 Nicotine addiction (ICD-10 - F17.200) 09/29/2024 Bipolar 1 disorder (ICD-10 - F31.9) 12/01/2024 Bipolar 1 disorder (ICD-10 - F31.9) 02/23/2025 Bipolar 1 disorder (ICD-10 - F31.9) 05/11/2025 Bipolar 1 disorder (ICD-10 - F31.9) 02/23/2025 [...] in mood or behavior. Confirmed knowledge of [facility] hotline [phone] for clients 20 and under and [place] Crisis line [phone] and awareness of 478. SSRI Discussed possible side effects: GI upset, headache, decreased libido/anorgasmia, weight gain, signs of serotonin syndrome and risk of activation to suicidality Plan Of Treatment Next Appt Details Provider Name:Allie Lopez, 0 06/03/2025 08:40:00 AM, [address] [place], [address], Insurance Providers Payer Name Payer Address Payer Phone Subscriber Number Group Number Insured Name Patient Relationship to Insured Coverage Start Date Coverage End Date [facility] Attn Claims Department [address] [place] [address] [phone] [id number] Beulah Fung Self - patient is the insured 3 [facility] Attn Claims Department [address] [place] [address] [phone] [id number] Beulah Fung Self - patient is the insured 3 Medical (General) History Medical History History ICD Code type II diabetes hypertension nephrolithiasis LOVE migraine headache Surgical History Surgery Date(Month/Year) hysterectomy due to fibroids 2017 cholecystectomy carpal/cubital tunnel Hospitalization History Reason Date(Month/Year) suicide attempt by self harm and attempt ed overdose 10/02
[2025-05-25 21:31] LABS: Hematocrit 38.8 % (37.0-47.0); Hemoglobin 13.1 g/dL (12.0-15.0); Immature Granulocyte Percent A 0.3 % (0-0.5); Immature Platelet Fraction Pct 5.2 % (0.9-11.2); Lymphocytes Absolute Auto 0.88 K/mm3 (0.9-3.2); Mean Corpuscular HGB Conc 33.8 g/dl (32-36); Mean Corpuscular Hemoglobin 29.6 pg (26-34); Mean Corpuscular Volume 87.6 fl (80-100); Nucleated Red Blood Cells Absolute Auto 0.000 K/mm3 (0.0-0.012); Nucleated Red Blood Cells Perc 0.0 % (0.0-0.2); Platelet Count Result 51 k/mm3 (150-375); Red Blood Count 4.43 M/mm3 (4.2-5.4); White Blood Count 4.0 K/mm3 (4.5-10.0)
[2025-05-25 21:41] LABS: Alanine Aminotransferase 30 U/L (6-35); Albumin Level 4.4 g/dL (3.5-5.1); Alkaline Phosphatase 63 U/L (38-126); Anion Gap 11 mmol/L (4-12); Aspartate Amino Transferase 41 U/L (14-36); Bilirubin,Total 1.1 mg/dL (0.2-1.3); Blood Urea Nitrogen 12 mg/dL (7-17); Calcium 9.6 mg/dL (8.4-10.2); Carbon Dioxide 19 mmol/L (22-30); Chloride 111 mmol/L (98-107); Estimated CRCL calculation 60 ml/min; Estimated Glomerular Filt Rate > 60; Glucose 116 mg/dL (65-110); Potassium 3.5 mmol/L (3.4-5.0); Sodium 141 mmol/L (137-145); Total Protein 7.2 g/dL (6.3-8.2)
[2025-05-25 23:05] LABS: BEDSIDEPREGUCG Negative (Negative)
[2025-05-25 23:11] VITALS: BP 105/79; PULSE 91; O2SAT 100
[2025-05-26 00:36] VITALS: BP 110/78; PULSE 79; RESP 17; O2SAT 100
[2025-05-26 00:37] VITALS: BP 110/78; PULSE 86; RESP 17; O2SAT 100
--- OUTSIDE RECORDS SUMMARY | 2025-05-26 00:52 | XMS_ITS | Clinical Summary ---
Author Organization [facility] Address [address] [place] [address] Care Team Providers Care Freight Clerk Name Role Phone Sadia Morris Unavailable Sabine Parker APRN-PRACTICAL NURSE CLINICAL COORDINATOR Primary Care Provider Source Comments [facility],non-owned Affiliates and Associated Physician Practices is amultiple site organization consisting of ambulatory clinics and hospital sitesin [place], [place], [place] and [place]. This disclosure is being madepursuant to the Care Everywhere program and may not contain all information available regarding this patient. Last updated 18.[facility] Allergies Active Allergy Reactions Criticality Noted Date Comments Sumatriptan Myalgias 03/15/2023 Sumatriptan Headache 10/07/2024 [place] Oil Rash,Itching,Skin Reactions Medium 08/01/2017 actual sunflowers themselves [place]wood Oil Nausea and/or Vomiting 10/07/2024 Medications * [...] as needed Active Glucagon 3 MG/DOSE POWD [place] 3 mg into the nose as needed [...] Sulfate (IRON PO) Active Continuous Glucose Sensor ([employer] G7 Sensor) [facility] APPLY 1 SENSOR TOPICALLY, CHANGE AND REPLACE EVERY 10 DAYS. USE TO MONITOR GLUCOSE. 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); Liver lesion; Gastro-esophageal reflux disease without esophagitis; Secondary esophageal varices with bleeding (HCC) 05/07/2025 Travel 05/03/2025 11:21 AM CDT Anesthesia Event [facility] [address] [place] [address] Ninfa Cruz MD 05/03/2025 10:30 AM CDT - 05/03/2025 11:00 AM CDT Surgery [facility] [address] [place] [address] Salomon Sapp MD EGD +/- banding w/ Sekou 05/03/2025 9:01 AM CDT - 05/03/2025 12:38 PM CDT Hospital Encounter [facility] OP [address] [place] [address] Salomon Sapp MD Surgery General Discharge Disposition: Home or Self Care 05/03/2025 Travel 04/19/2025 Patient Outreach [facility] [address] [place] [address] Marguerite Clemens RN 03/26/2025 Orders Only [facility] - GI [facility] [place] [address] Salomon Sapp MD 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 Not hard at all 10/07/2024 [facility] [place] of Occupat ional Health - Occupational Stress [...] time in the past 12 m [facility], were you homeless or living in a retirement (including now)? No 10/07/2024 Comments No Sex and Gender Information Value Date Recorded Sex Assigned at Female 04/21/2024 2:38 PM CDT Legal Sex Female 5:23 PM CASH RECONCILIATION SPECIALIST Gender Identity Female 04/21/2024 2:38 PM CDT [...] Description 08/09/2025 10:30 AM CDT Hospital Encounter [facility] ENDOSCOPY [address] [place] [address] Salomon Sapp MD [address] [place] [address] [address] [place] [address] Surgery General 08/09/2025 10:30 AM CDT - 08/09/2025 11:00 AM CDT Surgery [facility] [address] [place] [address] Salomon Sapp MD [address] [place] [address] [address] [place] [address] EGD--w/ Sekou 09/24/2025 9:30 AM CASH RECONCILIATION SPECIALIST Appointment [facility] [place] [address] Salomon Sapp MD [address] [place] [address] [address] [place] [address] 09/24/2025 10:30 AM CASH RECONCILIATION SPECIALIST Office Visit [facility] - GI [address] [facility] [place] [address] Salomon Sapp MD [address] [place] [address] [place] [address] Scheduled Procedures Name Priority Associated Diagnoses Date/Ti [...] Procedure Name Priority Date/Time Associated Diagnosis Comments [place] ED EGD FLEX TRANSORAL DX 05/03/2025 11:16 [...] CDT HEMOGLOBIN A1C Routine 10/08/2024 9:31 AM CASH RECONCILIATION SPECIALIST ENDOSCOPY, COLON, DIAGNOSTIC Routine 08/27/2022 12:28 PM CASH RECONCILIATION SPECIALIST HEPATITIS C ANTIBODY Routine 11/14/2017 10:15 AM CASH RECONCILIATION SPECIALIST from Last 3 Months or Most Recently [...] entire procedure. Procedure Code(s): --- Professional --- 07090, Esophagogastroduo denoscopy, flexible, transoral; with band ligation of esophageal/gastri c varices Diagnosis Code(s): --- Professional --- K22.89, Other specified disease of esophagus R13.10, Dysphagia, unspecified I85.01, Esophageal varices with bleeding CPT copyright 2021 [place]. All rights reserved. The codes documented in this report are preliminary and upon dry wall applicator review may be revised to meet current compliance requirements. _ Salomon Sapp MD 05/03/2025 11:45:42 AM This report has been signed electronically. Note Initiated On: 05/03/2025 11:12 AM Number of Addenda: 0 [facility] [address] [place] [address] [facility] 05/03/2025 11:1 2 AM CDT Salomon Sapp MD GI PROCEDURE ORDERABLES Edited Result - Final Performing Organization Address City/[facility]/ZIP Co de Phone Number [facility] * (ABNORMAL) GLUCOSE - POINT OF CARE (05/03/2025 9:53 AM CDT) Glucose WB/POC 143(H) 70 - 99 mg/dL 05/03/2025 9:55 AM CDT [facility] Specimen Type Arterial/C apillary 05/03/2025 9:55 AM CDT [facility] Blood BLOOD SPECIMEN / Unknown 05/03/2025 9:53 AM CDT 05/03/2025 9:55 AM CDT us Salomon Sapp MD LAB - POINT OF CARE ORDERABLES Final Result [facility] [address] [place] [address], [facility] [[email or web address]] [phone] * MRI Abdomen Wwo Contrast (03/22/2025 9:48 [...] 29 U/L [facility] Comment: Test Performed at: [facility] [address] [place] [address] GISSEL OLIVER MD 01/21/2025 12:1 7 PM CDT 01/21/2025 12:18 PM CDT Salomon Sapp MD LAB - CHEMISTRY ORDERABLES Fin al Result Performing Organization Address City/State/[facility] Co de Phone Number [facility] [address] [place] [address] * HEMOGLOBIN A1C (10/08/2024 9:31 AM [facility]) Hemoglobin A1c 5.3 <=5.6 % 10/08/2024 1:[address] [facility] Estimated Average Glucose 105 mg/dL 10/08/2024 1:[address] [facility] Comment: HbA1c Interpretation: Normal : < 5.7% Pre-diabetes: 5.7-6.4% Diabetes: Equal to or greater than 6.5% Test results diagnostic of diabetes should be repeated for confirmation. Treatment target values recommended by ADA and other clinical organizations should be used to evaluate metabolic control in patients. Reference: [place] [employer] Association, Standards of Care in Diabetes -2020 In patients 70 years and older consider HbA1c target range of 7.0-7.5% (Reference: Garcia Contreras et al. JAMDA. 2012) The Sebia assay for the measurement of HbA1c is a National Glycohemoglobin Standardization Program (NGSP) certified method. Blood BLOOD SPECIMEN / Unknown Lab Venipuncture / Unknown 10/08/2024 9:31 AM CASH RECONCILIATION SPECIALIST 10/08/2024 9:59 AM CASH RECONCILIATION SPECIALIST us Ron Dawson MD LAB - CHEMISTRY ORDERABLES Final Result [address] [address], [facility] [[email or web address]] [phone] * ENDOSCOPY, COLON, DIAGNOSTIC (08/27/2022 12:28 PM CASH RECONCILIATION SPECIALIST) Report Endoscopy POC Endoscopy Department Report _ [...] entire procedure. Procedure Code(s): --- Professional --- 66288, Colonoscopy, flexible; with removal of tumor(s), polyp(s), or other lesion(s) by snare technique Diagnosis Code(s): --- Professional --- K63.5, Polyp of colon K64.4, Residual hemorrhoidal skin tags R10.84, Generalized abdominal pain K92.1, Melena (includes Hematochezia) CPT copyright 2019 [place]. All rights reserved. The codes documented in this report are preliminary and upon dry wall applicator review may be revised to meet current compliance requirements. Salomon Sapp MD 08/27/2022 1:27:31 PM This report has been signed electronically. Note Initiated On: 08/27/2022 12:28 PM Number of Addenda: [id number] [place] [address] 08/27/2022 12:2 8 PM CASH RECONCILIATION SPECIALIST Salomon Sapp MD GI PROCEDURE ORDERABLES Edited Result - Final [facility] * HEPATITIS C ANTIBODY (11/14/2017 10:15 AM CASH RECONCILIATION SPECIALIST) Hepatitis C Antibody Non-react [facility] Comment: Hepatitis C Antibody screen indicates no serologic evidence of past or current infection with Hepatitis C Virus. Patients with unexplained liver disease who are immunocompromised or suspected of having acute Hepatitis C infection may benefit from Nucleic Acid Test (USMAN) for Hepatitis C Viral RNA to confirm Hepatitis C status. Blood specimen (specimen) BLOOD SPECIMEN / Unknown 11/14/2017 10:15 AM CASH RECONCILIATION SPECIALIST 11/14/2017 11:03 AM CASH RECONCILIATION SPECIALIST us Verito Mcclendon MD LAB - CHEMISTRY ORDERABLES Final Result [facility] [address] [place] [address], [facility] [[email or web address]] [phone] from Last 3 Months or Most Recently Relevant to Health Maintenance Insurance [facility] SELF PAY NO INSURANCE Member Subscriber Plan / Payer (Ef fective for All Dates) Name:Miranda Garciasara Melo Member ID:Not on file Relation to Subscriber:Not on file Name:MIRANDA GARCIABEULAH M Subscriber ID:Not on file (Home) Address: [address] [place] [address] [place] [address] Payer ID:Not on file Group ID:Not on file Type:Self Pay Address: [place], [place] [address] [place] [address] Advance Directives * Full Code (Latest Code Status on File) Date Activated Date Inactivated Comments 10/07/2024 6:10 PM 10/11/2024 5:22 PM Care Teams Freight Clerk Relationship Specialty Start Date End Date Sabine Parker APRN-[place] [address] [place] [address] PCP - General Nurse Practitioner Family 05/07/25 Sadia Morris [address] [address] 09/13/24
--- OUTSIDE RECORDS SUMMARY | 2025-05-26 00:52 | XMS_ITS | Encounter Summary ---
Author Organization [facility] Address [address] [facility] [place] [address] Care Team Providers Care Outdoor Fitness Trainer Name Role Phone Sadia Morris Primary Care Provider [phone] Sadia Morris Primary Care Provider [phone] Sadia Morris Unavailable Sabine Parker SUPERINTENDENT POWER-WATER RESOURCE CONSULTANT Primary Care Provider Reason for Visit * Reason Onset Date Comments MEDICATION REFILL 01/21/2024 Encounter Details Date Type Department Care Team (Late st Contact Info) Description 01/21/2024 Refill [facility] - GI [address] [place] [address], [place] [address] Salomon Sapp MD [address] [place] [address] [place] [address] MEDICATION REFILL Social History Tobacco Use Types [...] PM CDT Legal Sex Female 5:23 PM CUTTER AND EDGE TRIMMER Gender Identity Female 04/21/2024 2:38 PM CDT [...] Description 08/09/2025 10:30 AM CDT Hospital Encounter [facility] END[facility]COPY [address] [place] [address] Salomon Sapp MD [address] [place] [address] [address] [place] [address] Surgery General 08/09/2025 10:30 AM CDT - 08/09/2025 11:00 AM CDT Surgery [facility] [address] [place] [address] [place] [address] [place] [address] [address] [place] [address] EGD--w/ Sekou 09/24/2025 9:30 AM CUTTER AND EDGE TRIMMER Appointment [facility] [address] [place] [address] Salomon Sapp MD [address] [place] [address] [address] [place] [address] 09/24/2025 10:30 AM CUTTER AND EDGE TRIMMER Office Visit [facility] - GI [address] [place] [address], [place] [address] Salomon Sapp MD [address] [place] [address] [address] [place] [address] Scheduled Procedures Name Priority Associated Diagnoses Date/Ti [...] on filedocumented in this encounter Care Teams Outdoor Fitness Trainer Relationship Specialty Start Date End Date Sadia Morris [address] [place] [address] [place] [address] PCP - General 09/24/23 09/12/24 Sadia Morris [address] [place] [address] [place] [address] PCP - General 09/13/24 05/06/25 Sabine Parker, GUS-WATER RESOURCE CONSULTANT [address] [place] [address] PCP - General Nurse Practitioner Family 05/07/25 Sadia Morris [facility] [facility] [address] [place], [place] [id number] 09/13/24 documented as of this encounter
--- OUTSIDE RECORDS SUMMARY | 2025-05-26 00:52 | XMS_ITS | Clinical Summary ---
Author Organization [facility] Address [address] [place] [address] Care Team Providers Care Drill Press Operator Helper Name Role Phone Sadia Morris NP Primary Care Provider + Allergies Active Allergy Reactions Criticality Noted Date Comments Sumatriptan Muscle pain,Other (See comments) Medium [place] Oil Hives Medium 02/13/2022 Medications cyclobenzaprine (FLEXERIL) [...] Type Department Care Team Description 05/20/2025 Documentation [facility] Physical Therapy [address] [place] [address] Quiana Campbell, PT from Last 3 Months [...] on file Legal Sex Female 11:18 PM LIPCOAT SPRAYER Gender Identity Not on file Sexual Orientation Not on file Obstetrics History Last Filed Vital Signs Vital Sign Reading Time Taken Comments Blood Pressure 122/71 09/13/2024 3:03 PM LIPCOAT SPRAYER Pulse 64 09/13/2024 3:03 PM LIPCOAT SPRAYER Temperature 36.2 C (97.2 F) 09/13/2024 3:03 PM LIPCOAT SPRAYER Respiratory Rate 16 09/13/2024 3:03 PM LIPCOAT SPRAYER Oxygen Saturation 97% 09/13/2024 3:03 PM LIPCOAT SPRAYER Inhaled Oxygen Concentration - - Weight 90.3 kg (199 lb) 09/12/2024 2:18 AM LIPCOAT SPRAYER Height 157.5 cm (5' 2) 09/12/2024 2:18 AM LIPCOAT SPRAYER Body Mass Index 36.4 09/12/2024 2:18 AM LIPCOAT SPRAYER Plan of Treatment Health Maintenance Due Date [...] Comments HEMOGLOBIN A1C Routine 09/12/2024 4:58 AM LIPCOAT SPRAYER EGFR STAT 09/11/2024 11:22 PM LIPCOAT SPRAYER from Last 3 Months or Most Recently Relevant to Health Maintenance Results * Hemoglobin A1c (09/12/2024 4:58 AM LIPCOAT SPRAYER) Hgb A1C 5.4 4.0 - 5.6 % Estimated Average Glucose 108 mg/dL [facility]ITH THOMPS[facility] ([place]) Comment: The ADA recommends reporting an estimated Average Glucose (eAG) with all Hemoglobin A1c results using the equation derived from a study of 507 normal and diabetic adults. Minority populations were underrepresented and children were not included. (Diabetes Care 31:2585-0787, 2008). The eAG is not equivalent to a fasting glucose. Blood 09/12/2024 4:58 AM LIPCOAT SPRAYER 09/12/2024 5:07 AM LIPCOAT SPRAYER us Dionicio Levin MD LAB BLOOD ORDERABLES Final Resu lt Performing Organization Address City/[facility]/ZIP Co de Phone Number JUDITH THOMPSON ([place]) [address] [facility] [place] [address] * eGFR (09/11/2024 11:22 PM LIPCOAT SPRAYER) eGFR 69 >=60 mL/min/1. 73 m2 Comment: [...] reviewed 2021. Blood 09/11/2024 11:2 2 PM LIPCOAT SPRAYER 09/11/2024 11:22 PM LIPCOAT SPRAYER us Valdez Lee MD LAB BLOOD ORDERABLES Final R esult JUDITH THOMPSON ([place]) [address] [facility] [place] [address] from Last 3 Months or Most Recently Relevant to Health Maintenance Insurance [facility] Advance Directives For more information, please contact: [phone] * LIMITED - No CPR (Latest Code [...] 1:26 AM 09/12/2024 5:23 AM Care Teams Drill Press Operator Helper Relationship Specialty Start Date End Date Sadia Morris NP [facility] [facility] [place] [address] PCP - General Nurse Practitioner 02/28/24
--- OUTSIDE RECORDS SUMMARY | 2025-05-26 00:52 | XMS_ITS | Clinical Summary ---
Author Organization [facility] Address [address], [facility] [address] [place] [address] Phone Care Team Providers Care Retort Pre Cooker Name Role Phone Ric Malik MD Unavailable [phone] Ric Malik MD Unavailable [phone] Natacha Hoyt MD Primary Care Provider Allergies Active Allergy Reactions Criticality Noted Date Comments Sumatriptan Other (see Comments) 03/15/2023 Mcclain Oil Hives,Nausea,Vomitin g,Other (see Comments) Low 04/11/2017 [...] Active Continuous Glucose Sensor (Dexcom G7 Sensor) [facility] APPLY 1 SENSOR TOPICALLY, [...] Subcutaneous route. 10/10/20 24 Active nystatin (MYCOSTATIN) 957182 UNIT/GM Cream Apply. 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; Mediastinal lymphadenopathy 04/29/2025 Travel 04/15/2025 1:30 PM CDT Lab [facility] [address] [phone] Lab, [facility] [place] Iron deficiency; B12 deficiency; Thrombocytopenia (HCC); Liver cirrhosis secondary to OLVE (HCC) 04/15/2025 1:00 PM CDT Office Visit [facility] [address] [phone] Anne Rodriguez APRN, PURIFICATION OPERATOR Iron deficiency (Primary Dx); B12 deficiency; Thrombocytopenia (HCC); 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) 04/15/2025 Results Follow-Up [facility] [address] [phone] Anne Rodriguez APRN, PURIFICATION OPERATOR COMPLETE BLOOD COUNT (CBC) WITH DIFF 04/15/2025 [...] [facility] [address] [place] [address] Rubens Claros MD [address] [place] [address] 07/15/2025 1:00 PM CDT Office Visit [facility] [address] [address] Ric Malik MD [address] [facility] [address] [place], [place] [address] Health Maintenance Due Date Last Done Comments [...] to multiple mechanisms Mediastinal lymphadenopathy VITAMIN B12 [id number] [place] Routine 04/15/2025 1:22 PM CDT IRON AND TIBC [id number] [place] Routine 04/15/2025 1:22 PM CDT FOLATE [id number] [place] Routine 04/15/2025 1:22 PM CDT FERRITIN [id number] [place] Routine 04/15/2025 1: 22 PM CDT COMP. METABOLIC PANEL [id number] [place] Routine 04/15/2025 1:22 PM CDT COMPLETE [...] WBC 5.5 4.0 - 10.0 10*3/uL [facility] HGB 12.7 11.2 - 15.7 g/dL [facility] HCT 37.5 34.1 - 44.9 % [facility] PLT 56(L) 163 - 369 10*3/uL [facility] MPV 11.1 9.4 - 12.4 fL [facility] RBC 4.44 3.93 - 5.22 10*6/uL [facility] MCV 85 79 - 95 fL [facility] MCH 28.6 25.6 - 32.2 pg [facility] MCHC 33.9 32.2 - 36.5 g/dL [facility] RDW 16.8(H) 11.6 - 14.4 % [facility] Absolute Neutrophil Count 4,526 cells/uL [facility] Absolute Seg Count 4,526 1,440 - 6,600 cells/uL [facility] Absolute Lymph Count 718(L) 760 - 4,000 cells/uL [facility] Absolute [place] Count 221 160 - 1,200 cells/uL [facility] Absolute Eos Count 55 0 - 300 cells/uL [facility] Segmented Neutrophils 82(H) 36 - 66 % [facility] Lymphocytes 13(L) 19 - 40 % [facility] Monocytes 4 4 - 12 % [facility] Eosinophils 1 0 - 3 % [facility] WBC Estimate Normal [facility] Platelet Estimate Low [facility] RBC Morphology Abnormal [facility] Anisocytosis 1+ [facility] Large Platelets Present [facility] Blood 04/29/2025 9:28 AM CDT Narrative [facility] - 04/29/2025 11:13 AM CDT Release to patient->Immediate Anne Rodriguez RETAIL ASSISTANT, PURIFICATION OPERATOR HEMATOLOGY ORDERABLES Final Result [facility] [place] [address], * (ABNORMAL) VITAMIN B12 [id number] [place] (04/15/2025 1:22 PM CDT) VITAMIN B12 1,549(H) 232 - 1,245 PG/ML [facility] 04/15/2025 1:22 PM CDT Narrative [facility] - 04/16/2025 7:08 AM CDT TESTING PERFORMED AT: [] [facility], [address] [place] [address], [place], [address], PHONE: [phone], ASSISTANT COOK: DANNY CHRISTIAN, PHD Anne Rodriguez APRN, PURIFICATION OPERATOR LAB SEND OUTS Final Result [facility] [place] [address] [place] [address], [place] [phone] * (ABNORMAL) IRON AND TIBC [id number] [place] (04/15/2025 1:22 PM CDT) Iron Bind.Cap.(TIBC) 262 250 - 450 UG/DL [facility] UIBC 226 131 - 425 UG/DL [facility] Iron, Serum 36 27 - 159 UG/DL [facility] Iron Saturation 14(L) 15 - 55 % [facility] 04/15/2025 1:22 PM CDT Narrative [facility] - 04/16/2025 7:08 AM CDT TESTING PERFORMED AT: [[employer]] [facility], [address] [place] [address], [phone], PHONE: [phone], ASSISTANT COOK: DANNY CHRISTIAN, PHD Anne Rodriguez APRN, PURIFICATION OPERATOR LAB SEND OUTS Final Result Performing Organization Address City/[facility] Co de Phone Number [facility] [place] [address], [place] [phone] * FOLATE [id number] [place] (04/15/2025 1:22 PM CDT) Folate (Folic Acid), Serum >20.0 >3.0 NG/ML [facility] Comment: A SERUM FOLATE CONCENTRATION OF LESS THAN 3.1 NG/ML IS CONSIDERED TO REPRESENT CLINICAL DEFICIENCY. 04/15/2025 1:22 PM CDT Narrative [facility] - 04/16/2025 7:08 AM CDT TESTING PERFORMED AT: [[employer]] [facility], [address] [place], [address], PHONE: [phone], ASSISTANT COOK: DANNY CHRISTIAN, PHD Anne Rodriguez APRN, PURIFICATION OPERATOR LAB SEND OUTS Final Result Performing Organization Address [facility]/ZIP Co de Phone Number [facility] [address] [place] [address], [place] [phone] * FERRITIN [id number] [place] (04/15/2025 1:22 PM CDT) Ferritin, Serum 96 15 - 150 NG/ML [facility] 04/15/2025 1:22 PM CDT Narrative [facility] - 04/16/2025 7:08 AM CDT TESTING PERFORMED AT: [CB] [facility], [address] [place] [address], [address], PHONE: [phone], ASSISTANT COOK: DANNY CHRISTIAN, PHD Anne Rodriguez APRN, PURIFICATION OPERATOR LAB SEND OUTS Final Result Performing Organization Address [facility]/ZIP Co de Phone Number [facility] [address] [place] [address], [place] [phone] * (ABNORMAL) COMP. METABOLIC PANEL [id number] [place] (04/15/2025 1:22 PM CDT) GLUCOSE, SERUM 134(H) 70 - 99 MG/DL [facility] BUN 15 6 - 24 MG/DL [facility] CREATININE, SERUM 1.01(H) 0.57 - 1.00 MG/DL [facility] EGFR 70 >59 ML/MIN/1.7 3 [facility] BUN/CREATININE RATIO 15 9 - 23 [facility] SODIUM, SERUM 141 134 - 144 MMOL/L [facility] POTASSIUM, SERUM 3.8 3.5 - 5.2 MMOL/L [facility] CHLORIDE, SERUM 107(H) 96 - 106 MMOL/L [facility] CARBON DIOXIDE, TOTAL 18(L) 20 - 29 MMOL/L [facility] CALCIUM, SERUM 9.0 8.7 - 10.2 MG/DL [facility] PROTEIN, TOTAL, SERUM 6.0 6.0 - 8.5 G/DL [facility] ALBUMIN, SERUM 3.9 3.9 - 4.9 G/DL [facility] GLOBULIN, TOTAL 2.1 1.5 - 4.5 G/DL [facility] BILIRUBIN, TOTAL 0.6 0.0 - 1.2 MG/DL [facility] ALKALINE PHOSPHATASE, S 64 44 - 121 IU/L [facility] AST (SGOT) 38 0 - 40 IU/L [facility] ALT (SGPT) 27 0 - 32 IU/L [facility] 04/15/2025 1:22 PM CDT Narrative [facility] - 04/16/2025 7:08 AM CDT TESTING PERFORMED AT: [] [facility], [address] [place] [address], [address], PHONE: [phone], ASSISTANT COOK: DANNY CHRISTIAN, PHD Anne Rodriguez APRN, PURIFICATION OPERATOR LAB SEND OUTS Final Result [facility] [place] [address], from Last 3 Months Insurance MEDICAID [employer] Care Teams Retort Pre Cooker Relationship Specialty Start Date End Date Natacha Hoyt MD [facility] [address] [place] [address] PCP - General Family Medicine 08/29/23 Ric Malik MD [address] [place] [phone] Consulting Physician Oncology 05/22/22 Ric Malik MD [address] [place] [address] Consulting Physician Oncology 08/28/23
[2025-05-26 01:12] LABS: Add Urine Microscopic? YES; Appearance Urine Turbid (Clear); Budding Yeast Urine Present /hpf; Glucose Urine UA 3+ mg/dL (Negative); Leukocyte Esterase Ur 1+ LEU/UL (Negative); Need Manual Microscopic Reviewed; Nitrate Urine Negative (Negative); Non Pathogenic Casts 0-2; Specific Grav Ur 1.032 (1.001-1.035)
--- NOTE | 2025-05-26 01:15 | PC.NURSE ---
Pt to CT at this time.
[2025-05-26] MEDS: ONDANSETRON INJ 4 MG/2 ML VIAL IV PUSH (01:31)
[2025-05-26] MEDS: MORPHINE SULFATE (*CRX) 4 MG/ML INJ IV PUSH (01:31)
[2025-05-26] MEDS: SODIUM CHLORIDE 0.9% IV 1,000 ML 999 ML IV CONT (01:32)
--- NOTE | 2025-05-26 02:01 | ED.BACK ---
HPI - Back Pain/Injury General Chief Complaint: Back Pain/Injury Stated Complaint: R flank pain Time Seen by Provider: 05/26/25 00:41 Source: patient and old records reviewed Mode of arrival: ambulatory Limitations: no limitations History of Present Illness HPI Narrative: Patient is a 44-year-old female who presents the ED with report of right flank pain. Patient reports she developed pain throughout her right flank region today. Has long history of kidney stones. Does have a known large right renal stone which she is scheduled to have removed surgically soon with Dr. Claros with [facility]. Reports nausea and vomiting today. She attempted to take pain medication, but was unable to keep this down. Denies radiation to abdomen. Denies significant urinary complaints, dysuria, hematuria, urinary frequency, fevers. Related Data Home Medications ?Medication ?Instructions ?Recorded ?Confirmed ?Last Taken ?Type diphenhydramine HCl 25 mg capsule 25 mg PO TID PRN itching 06/01/22 05/21/25 03/03/25 History (Benadryl) buspirone 15 mg tablet 15 mg PO BID 10/25/22 05/21/25 03/04/25 History hydroxyzine pamoate 25 mg capsule 50 mg PO Q4H PRN Anxiety 07/25/23 05/21/25 Unknown History (Vistaril) prazosin 2 mg capsule 2 mg PO QHS 01/27/24 05/21/25 03/03/25 History cholecalciferol (vitamin D3) 50 50 mcg PO DAILY 07/24/24 05/21/25 03/04/25 History mcg (2,000 unit) capsule (Vitamin D3) ferrous sulfate 325 mg (65 mg 325 mg PO DAILY 07/24/24 05/21/25 03/04/25 History iron) tablet lidocaine 3 %-hydrocortisone 0.5 % 1 applic RECTAL BID PRN Pain 07/24/24 05/21/25 08/03/24 History rectal cream vitamin B complex 1 tablet PO DAILY 07/24/24 05/21/25 12/07/24 History cariprazine 6 mg capsule (Vraylar) 6 mg PO DAILY 09/21/24 05/21/25 03/04/25 History doxepin 10 mg capsule 25 mg PO DAILY 03/16/25 05/21/25 Unknown History carvedilol 3.125 mg tablet 3.125 mg PO DAILY 04/30/25 05/21/25 Unknown History Allergies Allergy/AdvReac Type Severity Reaction Status Date / Time sunflower oil Allergy Intermediate Hives Verified 05/26/25 00:37 sumatriptan (From Imitrex) AdvReac Intermediate Muscle Verified 05/26/25 00:37 Spasms Review of Systems Review of Systems: All systems reviewed & are unremarkable except as noted in HPI. All systems reviewed & are unremarkable except as noted in HPI and below [facility] Past Medical History Medical History Abnormal CT scan Type 2 diabetes mellitus (~2006) Rectal bleeding Left knee pain Medial meniscus tear Chronic nausea Gastroesophageal reflux disease Esophageal varices determined by endoscopy Irritable bowel syndrome with alternating bowel habits Portal hypertensive gastropathy Cirrhosis Bipolar 2 disorder Alopecia Cat scratch of forearm Body mass index (BMI) 35 or more (05/05/19) Vaginal yeast infection Type 2 diabetes mellitus with hyperglycemia Benign essential hypertension Abnormal vaginal bleeding Abnormal CT of brain Nausea & vomiting Hx of renal calculi (~07/2021) Portal hypertension (~07/2021) Chronic GERD Ganglion cyst Vitamin D deficiency Dyslipidemia BMI 40.0-44.9, adult Anxiety and depression HTN (hypertension) Type 2 diabetes mellitus with other circulatory complications (~2006) Avulsion fracture of right calcaneus with delayed healing (~2016) Other and unspecified hyperlipidemia (~2018) Hypertension complicating diabetes (~2013) Iron deficiency anemia due to chronic blood loss (~2016) 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: [facility] Microalbuminuria due to type 2 diabetes mellitus (~2017) Migraine without aura, not intractable, with status migrainosus (~1992) meds tried: midrin (helpful), imitrex (no help), zomig, topamax (helpful) Recurrent major depressive disorder in partial remission (~1992) Renal cyst, acquired (~2011) Hyperlipidemia associated with type 2 diabetes mellitus (~2018) Unspecified cirrhosis of liver (~2014) LOVE Surgical History Surgical History History of urethral stent (~07/2021) H/O: hysterectomy H/O left knee surgery Status post right foot surgery (~2018) History of cholecystectomy (~2018) Family History Family History Father Hypertension Cerebrovascular accident Family history of diabetes mellitus in first degree relative Diabetes mellitus Mother Hypertension Other Family history of Alzheimer's disease Family history of cardiovascular disease Family history of chronic obstructive pulmonary disease Family history of congestive heart failure Family history of hearing loss Family history of migraine headaches Family history of obesity Social History Social History Social History: , no children. Unemployed. Caffeine-rarely Smoking packs per day: 1 Smoking cigarettes per day: 20.0 Years smoked: 13 Smoking pack-years: 13.00 Smoking status: Current every day smoker Tobacco type: e-cigarettes/vaping Smoking end date: 10/14/06 Alcohol intake: former Drinks per week: 1 Substance use: never Substance use type: does not use Last use: Quit 1996 Do You Feel Safe in your Home?: Yes Lack of Transportation: No Lack of Food: Never True Current Housing: I Have Housing Concerned About Future Housing: No Difficulty Paying Gas/Electric Bills: No Difficulty Paying for Meds: No Currently Unemployed: No Education: Associate Degree Difficulty w/ Childcare or Family Care: No Living arrangements: with family Additional living arrangements comments: lives with soon to be x- Occupation/Education: occupation Gender identity (if verbalized by the patient): Female Spiritual care concerns: No Agree to blood products: Yes Exam Narrative: GENERAL: Well appearing, well-nourished, non-toxic, in no acute distress. HEAD: Normocephalic, atraumatic. RESPIRATORY: Airway patent, respirations nonlabored. Clear to auscultation bilaterally, no rales, rhonchi, wheezing. CARDIOVASCULAR: Regular rate and rhythm without murmurs, rubs, or gallops. ABDOMINAL: Soft, no significant tenderness throughout abdomen, nondistended. Normoactive BS. Minimal right-sided CVA tenderness. MUSCULOSKELETAL: Moves all extremities. No gross deformities. SKIN: Warm, dry, normal color. NEURO: A&O X3. Speech clear. Cranial nerves II-XII grossly intact. Steady gait. No ataxic movements. PSYCHIATRIC: Appropriate mood and affect. Normal interaction. Course Vital Signs Vital signs: Vital Signs Temperature 97.9 F 05/25/25 21:11 Pulse Rate 81 05/25/25 21:11 Respiratory Rate 18 05/25/25 21:11 Blood Pressure 111/76 05/25/25 21:11 Pulse Oximetry 99 05/25/25 21:11 Oxygen Delivery Room Air 05/25/25 21:11 Temperature 97.9 F 05/25/25 21:11 Pulse Rate 86 05/26/25 00:37 Respiratory Rate 17 05/26/25 00:37 Blood Pressure 110/78 05/26/25 00:37 Pulse Oximetry 100 05/26/25 00:37 Oxygen Delivery Room Air 05/26/25 00:37 MDM - Back Pain/Injury MDM Narrative Medical decision making narrative: Patient presented to ED with right flank pain onset today, associated with nausea and vomiting. History of kidney stones. Vital signs are stable upon arrival. Afebrile. Patient not in any significant distress. Laboratory studies without leukocytosis or anemia. Does show chronic thrombocytopenia, appears consistent with previous records. Kidney function is stable. UA with 1+ leuk esterase, greater than 100 RBC, 11-20 WBC. No urine bacteria seen. Sent for culture. Will cover for potential infection with Keflex. Urine is negative. CT scan of abdomen/pelvis was obtained and showing unchanged right nephrolithiasis, no significant other acute findings. Patient updated on lab and imaging findings. She is feeling improved with supportive therapy. Feel she is safe for discharge home at this time with continued outpatient urology follow-up. Will discharge with Zofran for home use. Advised to continue Tylenol/ibuprofen, stay well hydrated. Given strict return precautions. She agrees with plan. Feels comfortable going home. Discharged in stable condition. Medical Records Attestation: I reviewed the patient's medical records. Lab Data Attestation: I reviewed the patient's lab results. 05/25/25 21:19 05/25/25 21:19 Labs: Lab Results 05/25/25 05/25/25 05/25/25 Range/Units 21:19 22:52 23:03 WBC 4.0 L (4.5-10.0) K/mm3 RBC 4.43 (4.2-5.4) M/mm3 Hgb 13.1 (12.0-15.0) g/dL Hct 38.8 (37.0-47.0) % MCV 87.6 (80-100) fl MCH 29.6 (26-34) pg MCHC 33.8 (32-36) g/dl RDW 16.2 H (11.5-14.5) % Plt Count 51 L (150-375) k/mm3 MPV 11.2 H (7.4-10.4) fl Immature Gran % (Auto) 0.3 (0-0.5) % Neut % (Auto) 69.5 (45.5-73.1) % Lymph % (Auto) 22.1 (18.3-44.2) % [place] % (Auto) 5.0 (2.6-8.5) % Eos % (Auto) 2.3 (0-4.4) % Baso % (Auto) 0.8 (0.2-1.2) % Lymph # (Auto) 0.88 L (0.9-3.2) K/mm3 [place] # (Auto) 0.2 (0.1-0.6) K/mm3 Eos # (Auto) 0.1 (0-0.3) K/mm3 Baso # (Auto) 0.0 (0.0-0.1) K/mm3 Abs Immat Gran (auto) 0.01 (0.00-0.031) K/mm3 Absolute Neuts (auto) 2.8 (1.3-6.7) K/mm3 Absolute Nucleated RBC 0.000 (0.0-0.012) K/mm3 Nucleated RBC % 0.0 (0.0-0.2) % % Immature Plt Fraction 5.2 (0.9-11.2) % Sodium 141 (137-145) mmol/L Potassium 3.5 (3.4-5.0) mmol/L Chloride 111 H (98-107) mmol/L Carbon Dioxide 19 L (22-30) mmol/L Anion Gap 11 (4-12) mmol/L BUN 12 (7-17) mg/dL Creatinine 0.90 (0.7-1.0) mg/dL Estim Creat Clear Calc 60 ml/min Estimated GFR > 60 (59 - ) Glucose 116 H (65-110) mg/dL Calcium 9.6 (8.4-10.2) mg/dL Total Bilirubin 1.1 (0.2-1.3) mg/dL AST 41 H (14-36) U/L ALT 30 (6-35) U/L Alkaline Phosphatase 63 (38-126) U/L Total Protein 7.2 (6.3-8.2) g/dL Albumin 4.4 (3.5-5.1) g/dL Urine Color Dark yellow (Yellow) Urine Appearance Turbid H (Clear) Urine pH 7.5 (5.0-9.0) Ur Specific [place] 1.032 (1.001-1.035) Urine Protein 1+ H (Negative) mg/dL Urine Glucose (UA) 3+ H (Negative) mg/dL Urine Ketones Trace H (Negative) mg/dL Ur Blood (Man) 3+ H (Negative) Urine Nitrate Negative (Negative) Urine Bilirubin Negative (Negative) Urine Urobilinogen 2.0 H (<2.0) mg/dL Add Ur Microanalysis Reviewed Leukocyte Esterase Rfl 1+ H (Negative) KATIE/UL Urine RBC >100 H (0-2) /hpf Urine WBC 11-20 H (0-3) /hpf Ur Squamous Epith Cells Few (Few) /hpf Calcium Oxalate Crystal Present (None) /hpf Urine Bacteria None seen /hpf Urine Casts 0-2 Urine Yeast (Budding) Present H (None) /hpf POC Urine HCG, Qual Negative (Negative) Imaging Data Attestation: I personally reviewed and interpreted this imaging study as follows: Radiologist's impression: STAT RAD CT abd/pelvis: Comparison: CT abdomen pelvis dated 04/24/2025. Impression: Unchanged nonobstructing 8 mm right renal calculus. Cirrhosis of the liver and splenomegaly. Unchanged small volume of abdominal and pelvic ascites. Incidental findings: Hepatic cyst. Benign simple left renal cyst. Status post cholecystectomy. Aortoiliac atherosclerosis. Discharge Plan Discharge Clinical Impression: Right flank pain, Right nephrolithiasis, Abnormal urinalysis Patient Disposition: Home Condition: Stable Instructions: Antibiotic Form, Kidney Stones (ED), Urinary Tract Infection in Women (ED), Flank Pain (ED) Additional Instructions: Take antibiotics as prescribed for possible urinary tract infection. Continue Tylenol, ibuprofen as needed for pain. Zofran as needed for nausea. Stay well hydrated. Follow-up with your urologist for further evaluation. Return to the ED if you experience worsening or severe pain, unable to keep down food/drink, fevers, uncontrollable nausea/vomiting, unable to urinate, or any other symptoms of concern. Patient Language: [place] Prescriptions: New ondansetron 4 mg tablet,disintegrating 4 mg PO Q8H PRN (Reason: nausea and vomiting) Qty: 15 0RF cephalexin 500 mg capsule 500 mg PO Q6H 7 Days Qty: 28 0RF No Action fluticasone propionate [Flonase Allergy Relief] 50 mcg/actuation spray,suspension 1 spray intranasal DAILY Qty: 16 0RF Rx Instructions: administer into each nostril (DME) OneTouch Verio test strips Strip See Rx Instructions .Route Qty: 100 11RF Rx Instructions: Monitor glucose 3-4 times a day prazosin 2 mg capsule 2 mg PO QHS doxepin 10 mg capsule 25 mg PO DAILY Vraylar 6 mg capsule 6 mg PO DAILY carvedilol 3.125 mg tablet 3.125 mg PO DAILY Rx Instructions: must administer with a meal/food Baqsimi 3 mg/actuation spray,non-aerosol 3 mg intranasal ONCE PRN (Reason: hypoglycemia) Qty: 1 0RF Rx Instructions: as a single dose buspirone 15 mg tablet 15 mg PO BID Mounjaro 12.5 mg/0.5 mL pen injector 12.5 mg subcut WEEKLY Qty: 6 1RF metronidazole 500 mg tablet 500 mg PO Q8H 10 Days Qty: 30 0RF diphenhydramine HCl [Benadryl] 25 mg Capsule 25 mg PO TID PRN (Reason: itching) lidocaine HCl-hydrocortison ac 3-0.5 % cream 1 applic RECTAL BID PRN (Reason: Pain) ferrous sulfate 325 mg (65 mg iron) Tablet 325 mg PO DAILY vitamin B complex Tablet 1 tablet PO DAILY cholecalciferol (vitamin D3) [Vitamin D3] 50 mcg (2,000 unit) Capsule 50 mcg PO DAILY meclizine 25 mg tablet 25 mg PO BID PRN (Reason: dizziness) 7 Days Qty: 14 0RF duloxetine 30 mg capsule,delayed release(DR/EC) 30 mg PO BID Qty: 180 1RF (DME) pen needle, diabetic [BD Ultra-Fine Shantelle Pen Needle] 32 gauge x 5/32 needle See Rx Instructions .ROUTE .MEDSUPPLY Qty: 300 1RF Rx Instructions: three times daily hydroxyzine pamoate [Vistaril] 25 mg capsule 50 mg PO Q4H PRN (Reason: Anxiety) albuterol sulfate 90 mcg/actuation HFA aerosol inhaler 1 puff INHALATION Q4H PRN (Reason: shortness of breath or wheezing) Qty: 6.7 1RF dexlansoprazole 60 mg capsule,biphase delayed releas 60 mg PO DAILY 30 Days Qty: 30 12RF cyclobenzaprine 10 mg tablet 10 mg PO TID PRN (Reason: muscle spasm) Qty: 60 1RF rizatriptan 5 mg tablet See Rx Instructions PO .COMPLEX PRN (Reason: Migraine Headache) Qty: 10 5RF Rx Instructions: take 1 tab at onset of headache; if no relief may repeat 1 tab after at least 2 hrs; max = 3 tabs/24 hr PO folic acid 1 mg tablet 1 mg PO DAILY Qty: 90 1RF atorvastatin 80 mg tablet 80 mg PO QHS Qty: 90 1RF lisinopril 2.5 mg tablet See Rx Instructions .ROUTE .COMPLEX Qty: 90 0RF Dose Instruction: Take 1 tablet by mouth once daily Rx Instructions: Take 1 tablet by mouth once daily pantoprazole 40 mg tablet,delayed release (DR/EC) See Rx Instructions .ROUTE .COMPLEX Qty: 90 1RF Dose Instruction: TAKE 1 TABLET BY MOUTH IN THE MORNING Rx Instructions: TAKE 1 TABLET BY MOUTH IN THE MORNING topiramate 200 mg tablet See Rx Instructions .ROUTE .COMPLEX Qty: 90 1RF Dose Instruction: Take 1 tablet by mouth once daily Rx Instructions: Take 1 tablet by mouth once daily Jardiance 25 mg tablet 25 mg PO DAILY Qty: 90 1RF (DME) Dexcom G7 Sensor Device See Rx Instructions .ROUTE .MEDSUPPLY Qty: 9 3RF Rx Instructions: Use to monitor glcuose Follow-up/Referrals: Karin Hoyt MD [Primary Care Provider] - Time of Disposition: 02:57
[2025-05-26] MEDS: KETOROLAC 30 MG/ML VIAL (*BKC) IV PUSH (03:29)
[2025-05-26] MEDS: CEPHALEXIN 500 MG CAPSULE PO (03:30)
[2025-05-26 03:31] VITALS: BP 111/77; PULSE 84; RESP 17; O2SAT 100
== END 2025-05-26 03:34 | disposition home or self-care (01) ==
PROVIDERS: Student in an Organized Health Care Education/Training Program; Emergency Provider Physician Assistant; PCP Family Medicine
DX: N20.0 Calculus of kidney (principal); E11.9 Type 2 diabetes mellitus without complications; I10 Essential (primary) hypertension; E78.5 Hyperlipidemia, unspecified; F17.210 Nicotine dependence, cigarettes, uncomplicated
CPT/HCPCS: 36415; 74176; 80053; 81001; 81025; 85025; 85055; 87086; 96361; 96374; 96375; 99284; A9270; J1885; J2270; J2405; J7030

== ENCOUNTER 2025-06-07 18:16 | Emergency (ER) | payer OTHER, SELFPAY ==
--- NOTE | ~2025-06-07 | XR_ITS ---
EXAMINATION: XR knee LT 3V DATE: 06/07/2025 18:46 INDICATION: Medial left knee pain TECHNIQUE: Anteroposterior, sunrise and crosstable lateral views of the left knee were obtained COMPARISON: None. FINDINGS: Alignment is normal. No fracture. Joint spaces appear normal on nonweightbearing imaging. Tiny patellar marginal osteophytes consistent with at least minimal osteoarthritis. No joint effusion/layering lipohemarthrosis. Soft tissues are unremarkable. IMPRESSION: 1. No left knee joint effusion or acute osseous abnormality. Reviewed, dictated and finalized at location A.
[2025-06-07 18:24] VITALS: BP 100/69; PULSE 84; RESP 16; TEMP 36.6; O2SAT 100
--- NOTE | 2025-06-07 18:27 | ED.GENADULT ---
HPI - General Adult General Chief complaint: Extremity Injury, Lower Stated complaint: Left Knee Pain Time Seen by Provider: 06/07/25 18:27 Source: patient Mode of arrival: ambulatory Limitations: no limitations History of Present Illness HPI narrative: 44 yo F presents with pain to L knee for 1 day. Yesterday while at work took a step to the side and felt pop to L knee. Pain constant, worse when ambulatory. hx of knee surgery x 2. All systems reviewed and negative except as noted above. Related Data Home Medications ?Medication ?Instructions ?Recorded ?Confirmed ?Last Taken ?Type diphenhydramine HCl 25 mg capsule 25 mg PO TID PRN itching 06/01/22 05/21/25 03/03/25 History (Benadryl) buspirone 15 mg tablet 15 mg PO BID 10/25/22 05/21/25 03/04/25 History hydroxyzine pamoate 25 mg capsule 50 mg PO Q4H PRN Anxiety 07/25/23 05/21/25 Unknown History (Vistaril) prazosin 2 mg capsule 2 mg PO QHS 01/27/24 05/21/25 03/03/25 History cholecalciferol (vitamin D3) 50 50 mcg PO DAILY 07/24/24 05/21/25 03/04/25 History mcg (2,000 unit) capsule (Vitamin D3) ferrous sulfate 325 mg (65 mg 325 mg PO DAILY 07/24/24 05/21/25 03/04/25 History iron) tablet lidocaine 3 %-hydrocortisone 0.5 % 1 applic RECTAL BID PRN Pain 07/24/24 05/21/25 08/03/24 History rectal cream vitamin B complex 1 tablet PO DAILY 07/24/24 05/21/25 12/07/24 History cariprazine 6 mg capsule (Vraylar) 6 mg PO DAILY 09/21/24 05/21/25 03/04/25 History doxepin 10 mg capsule 25 mg PO DAILY 03/16/25 05/21/25 Unknown History carvedilol 3.125 mg tablet 3.125 mg PO DAILY 04/30/25 05/21/25 Unknown History Allergies Allergy/AdvReac Type Severity Reaction Status Date / Time sunflower oil Allergy Intermediate Hives Verified 06/07/25 18:24 sumatriptan (From Imitrex) AdvReac Intermediate Muscle Verified 06/07/25 18:24 Spasms PMFSH Past Medical History Medical History Abnormal CT scan Type 2 diabetes mellitus (~2006) Rectal bleeding Left knee pain Medial meniscus tear Chronic nausea Gastroesophageal reflux disease Esophageal varices determined by endoscopy Irritable bowel syndrome with alternating bowel habits Portal hypertensive gastropathy Cirrhosis Bipolar 2 disorder Alopecia Cat scratch of forearm Body mass index (BMI) 35 or more (05/05/19) Vaginal yeast infection Type 2 diabetes mellitus with hyperglycemia Benign essential hypertension Abnormal vaginal bleeding Abnormal CT of brain Nausea & vomiting Hx of renal calculi (~07/2021) Portal hypertension (~07/2021) Chronic GERD Ganglion cyst Vitamin D deficiency Dyslipidemia BMI 40.0-44.9, adult Anxiety and depression HTN (hypertension) Type 2 diabetes mellitus with other circulatory complications (~2006) Avulsion fracture of right calcaneus with delayed healing (~2016) Other and unspecified hyperlipidemia (~2018) Hypertension complicating diabetes (~2013) Iron deficiency anemia due to chronic blood loss (~2016) 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: [facility] Microalbuminuria due to type 2 diabetes mellitus (~2017) Migraine without aura, not intractable, with status migrainosus (~1992) meds tried: midrin (helpful), imitrex (no help), zomig, topamax (helpful) Recurrent major depressive disorder in partial remission (~1992) Renal cyst, acquired (~2011) Hyperlipidemia associated with type 2 diabetes mellitus (~2018) Unspecified cirrhosis of liver (~2014) LOVE Surgical History Surgical History History of urethral stent (~07/2021) H/O: hysterectomy H/O left knee surgery Status post right foot surgery (~2017) History of cholecystectomy (~2017) Family History Family History Father Hypertension Cerebrovascular accident Family history of diabetes mellitus in first degree relative Diabetes mellitus Mother Hypertension Other Family history of Alzheimer's disease Family history of cardiovascular disease Family history of chronic obstructive pulmonary disease Family history of congestive heart failure Family history of hearing loss Family history of migraine headaches Family history of obesity Social History Social History Social History: , no children. Unemployed. Caffeine-rarely Smoking packs per day: 1 Smoking cigarettes per day: 20.0 Years smoked: 13 Smoking pack-years: 13.00 Smoking status: Current every day smoker Tobacco type: e-cigarettes/vaping Smoking end date: 10/14/06 Alcohol intake: former Drinks per week: 1 Substance use: never Substance use type: does not use Last use: Quit 1996 Do You Feel Safe in your Home?: Yes Lack of Transportation: No Lack of Food: Never True Current Housing: I Have Housing Concerned About Future Housing: No Difficulty Paying Gas/Electric Bills: No Difficulty Paying for Meds: No Currently Unemployed: No Education: Associate Degree Difficulty w/ Childcare or Family Care: No Living arrangements: with family Additional living arrangements comments: lives with soon to be x- Occupation/Education: occupation Gender identity (if verbalized by the patient): Female Spiritual care concerns: No Agree to blood products: Yes Comments At time of signature, agree with nursing past medical, surgical, social and family history. There is no relevant family history pertinent to the presenting complaint. Exam Narrative: GENERAL: This is a well-nourished, well-developed patient, in no apparent distress. HEAD: normocephalic, atraumatic. EYES: PERRL. Sclera clear/white. Vision is grossly intact. EARS: External ears normal NOSE: External nose normal NECK: Neck supple, non-tender without lymphadenopathy, masses or thyromegaly. CARDIOVASCULAR: Regular rate and rhythm without murmurs, gallops, or rubs. RESPIRATORY: Clear to auscultation. Breath sounds equal bilaterally. No wheezes, rales, or rhonchi. SKIN: warm, Dry, intact with no suspicious lesions or rash, good texture and turgor. NEURO: awake, alert, and oriented to person, place and time. There were no obvious focal neurologic abnormalities. EXTREMITIES: No swelling noted to left knee. No deformity. Tenderness to medial aspect. Negative drawer testing. Course Course Level of Care: Express Care Visit Vital Signs Vital signs: Vital Signs Temperature 36.6 C 06/07/25 18:24 Pulse Rate 84 06/07/25 18:24 Respiratory Rate 16 06/07/25 18:24 Blood Pressure 100/69 06/07/25 18:24 Pulse Oximetry 100 06/07/25 18:24 Oxygen Delivery Room Air 06/07/25 18:24 Temperature 36.6 C 06/07/25 18:24 Pulse Rate 84 06/07/25 18:24 Respiratory Rate 16 06/07/25 18:24 Blood Pressure 100/69 06/07/25 18:24 Pulse Oximetry 100 06/07/25 18:24 Oxygen Delivery Room Air 06/07/25 18:24 Reviewed Medical Decision Making MDM Narrative Medical decision making narrative: explained to patient that x-rays are best use to assess for bone abnormalities. Will not show ligament injury. Patient states still wants x-ray to rule out other issues. x-ray of left knee negative for fracture. Discussed results with patient. Abel wrap placed. Recommend rest, ice, compression and elevation. Will follow up with primary care physician as needed. Vital Signs Vital Signs: Vital Signs Temperature 36.6 C 06/07/25 18:24 Pulse Rate 84 06/07/25 18:24 Respiratory Rate 16 06/07/25 18:24 Blood Pressure 100/69 06/07/25 18:24 Pulse Oximetry 100 06/07/25 18:24 Oxygen Delivery Room Air 06/07/25 18:24 Temperature 36.6 C 06/07/25 18:24 Pulse Rate 84 06/07/25 18:24 Respiratory Rate 16 06/07/25 18:24 Blood Pressure 100/69 06/07/25 18:24 Pulse Oximetry 100 06/07/25 18:24 Oxygen Delivery Room Air 06/07/25 18:24 Imaging Data My impression: agree with radiologist Radiologist's impression: EXAMINATION: XR knee LT 3V DATE: 06/07/2025 18:46 INDICATION: Medial left knee pain TECHNIQUE: Anteroposterior, sunrise and crosstable lateral views of the left knee were obtained COMPARISON: None. FINDINGS: Alignment is normal. No fracture. Joint spaces appear normal on nonweightbearing imaging. Tiny patellar marginal osteophytes consistent with at least minimal osteoarthritis. No joint effusion/layering lipohemarthrosis. Soft tissues are unremarkable. IMPRESSION: 1. No left knee joint effusion or acute osseous abnormality. Discharge Plan Discharge Clinical Impression: Left knee sprain Qualifiers: Encounter type: initial encounter Involved ligament of knee: unspecified ligament Qualified Code(s): S83.92XA - Sprain of unspecified site of left knee, initial encounter Patient Disposition: Home Condition: Stable Instructions: Knee Sprain (ED) Additional Instructions: the x-ray of your left knee was negative for fracture and joint effusion. Take Tylenol or ibuprofen every 6-8 hours as needed for pain. Elevate when at rest. Apply ice as needed for pain. Avoid activities that increase pain to left knee such as running and jumping. See your primary care physician or lean specialist and next 3-4 weeks if pain is not improving. Patient Language: Telugu Prescriptions: No Action fluticasone propionate [Flonase Allergy Relief] 50 mcg/actuation spray,suspension 1 spray intranasal DAILY Qty: 16 0RF Rx Instructions: administer into each nostril (DME) OneTouch Verio test strips Strip See Rx Instructions .Route Qty: 100 11RF Rx Instructions: Monitor glucose 3-4 times a day prazosin 2 mg capsule 2 mg PO QHS doxepin 10 mg capsule 25 mg PO DAILY Vraylar 6 mg capsule 6 mg PO DAILY carvedilol 3.125 mg tablet 3.125 mg PO DAILY Rx Instructions: must administer with a meal/food Baqsimi 3 mg/actuation spray,non-aerosol 3 mg intranasal ONCE PRN (Reason: hypoglycemia) Qty: 1 0RF Rx Instructions: as a single dose buspirone 15 mg tablet 15 mg PO BID Mounjaro 12.5 mg/0.5 mL pen injector 12.5 mg subcut WEEKLY Qty: 6 1RF diphenhydramine HCl [Benadryl] 25 mg Capsule 25 mg PO TID PRN (Reason: itching) lidocaine HCl-hydrocortison ac 3-0.5 % cream 1 applic RECTAL BID PRN (Reason: Pain) ferrous sulfate 325 mg (65 mg iron) Tablet 325 mg PO DAILY vitamin B complex Tablet 1 tablet PO DAILY cholecalciferol (vitamin D3) [Vitamin D3] 50 mcg (2,000 unit) Capsule 50 mcg PO DAILY ondansetron 4 mg tablet,disintegrating 4 mg PO Q8H PRN (Reason: nausea and vomiting) Qty: 15 0RF meclizine 25 mg tablet 25 mg PO BID PRN (Reason: dizziness) 7 Days Qty: 14 0RF duloxetine 30 mg capsule,delayed release(DR/EC) 30 mg PO BID Qty: 180 1RF (DME) pen needle, diabetic [BD Ultra-Fine Shantelle Pen Needle] 32 gauge x 5/32 needle See Rx Instructions .ROUTE .MEDSUPPLY Qty: 300 1RF Rx Instructions: three times daily hydroxyzine pamoate [Vistaril] 25 mg capsule 50 mg PO Q4H PRN (Reason: Anxiety) albuterol sulfate 90 mcg/actuation HFA aerosol inhaler 1 puff INHALATION Q4H PRN (Reason: shortness of breath or wheezing) Qty: 6.7 1RF dexlansoprazole 60 mg capsule,biphase delayed releas 60 mg PO DAILY 30 Days Qty: 30 12RF cyclobenzaprine 10 mg tablet 10 mg PO TID PRN (Reason: muscle spasm) Qty: 60 1RF rizatriptan 5 mg tablet See Rx Instructions PO .COMPLEX PRN (Reason: Migraine Headache) Qty: 10 5RF Rx Instructions: take 1 tab at onset of headache; if no relief may repeat 1 tab after at least 2 hrs; max = 3 tabs/24 hr PO folic acid 1 mg tablet 1 mg PO DAILY Qty: 90 1RF atorvastatin 80 mg tablet 80 mg PO QHS Qty: 90 1RF lisinopril 2.5 mg tablet See Rx Instructions .ROUTE .COMPLEX Qty: 90 0RF Dose Instruction: Take 1 tablet by mouth once daily Rx Instructions: Take 1 tablet by mouth once daily pantoprazole 40 mg tablet,delayed release (DR/EC) See Rx Instructions .ROUTE .COMPLEX Qty: 90 1RF Dose Instruction: TAKE 1 TABLET BY MOUTH IN THE MORNING Rx Instructions: TAKE 1 TABLET BY MOUTH IN THE MORNING topiramate 200 mg tablet See Rx Instructions .ROUTE .COMPLEX Qty: 90 1RF Dose Instruction: Take 1 tablet by mouth once daily Rx Instructions: Take 1 tablet by mouth once daily Jardiance 25 mg tablet 25 mg PO DAILY Qty: 90 1RF (DME) Dexcom G7 Sensor Device See Rx Instructions .ROUTE .MEDSUPPLY Qty: 9 3RF Rx Instructions: Use to monitor glcuose Follow-up/Referrals: Karin Hoyt MD [Primary Care Provider, Family Practice] Time of Disposition: 19:52
== END 2025-06-07 20:01 | disposition home or self-care (01) ==
PROVIDERS: Emergency Provider Nurse Practitioner Family; PCP Family Medicine
DX: S83.92XA Sprain of unspecified site of left knee, initial encounter (principal); X58.XXXA Exposure to other specified factors, initial encounter; Y99.0 Civilian activity done for income or pay; E11.9 Type 2 diabetes mellitus without complications; Z79.84 Long term (current) use of oral hypoglycemic drugs; Z79.85 Long-term (current) use of injectable non-insulin antidiabetic drugs; K21.9 Gastro-esophageal reflux disease without esophagitis; K74.60 Unspecified cirrhosis of liver; L65.9 Nonscarring hair loss, unspecified; I10 Essential (primary) hypertension; E55.9 Vitamin D deficiency, unspecified; E78.5 Hyperlipidemia, unspecified; D50.0 Iron deficiency anemia secondary to blood loss (chronic); F41.9 Anxiety disorder, unspecified; F32.9 Major depressive disorder, single episode, unspecified; Z87.891 Personal history of nicotine dependence
CPT/HCPCS: 73562; 99213; G0463

== ENCOUNTER 2025-06-30 14:17 | Emergency (ER) | payer OTHER, SELFPAY ==
--- NOTE | 2025-06-30 14:19 | ED.UPPEXIN ---
HPI - Extremity Injury (Upper) General Chief Complaint: Extremity Problem,Nontraumatic Stated Complaint: Left Elbow Pain Time Seen by Provider: 06/30/25 14:18 Source: patient Mode of arrival: ambulatory Limitations: no limitations History of Present Illness HPI narrative: Patient is a 44-year-old female who presents with left elbow pain since yesterday. Patient states she has history of elbow pain but usually resolves quickly and does not linger. Denies any swelling, bruising or obvious injury. Denies any numbness, tingling or weakness to extremity. Related Data Home Medications ?Medication ?Instructions ?Recorded ?Confirmed ?Last Taken ?Type buspirone 15 mg tablet 15 mg PO BID 10/25/22 05/21/25 03/04/25 History prazosin 2 mg capsule 2 mg PO QHS 01/27/24 05/21/25 03/03/25 History cholecalciferol (vitamin D3) 50 50 mcg PO DAILY 07/24/24 05/21/25 03/04/25 History mcg (2,000 unit) capsule (Vitamin D3) ferrous sulfate 325 mg (65 mg 325 mg PO DAILY 07/24/24 05/21/25 03/04/25 History iron) tablet vitamin B complex 1 tablet PO DAILY 07/24/24 05/21/25 12/07/24 History cariprazine 6 mg capsule (Vraylar) 6 mg PO DAILY 09/21/24 05/21/25 03/04/25 History carvedilol 6.25 mg tablet mg 06/30/25 Unknown History doxepin 25 mg capsule mg 06/30/25 Unknown History hydroxyzine HCl 25 mg tablet mg 06/30/25 Unknown History Allergies Allergy/AdvReac Type Severity Reaction Status Date / Time sunflower oil Allergy Intermediate Hives Verified 06/30/25 14:18 sumatriptan (From Imitrex) AdvReac Intermediate Muscle Verified 06/30/25 14:18 Spasms Review of Systems Review of Systems: All systems reviewed & are unremarkable except as noted in HPI and below Constitutional: Constitutional: Denies body ache(s), Denies chills, Denies fatigue, Denies fever(s), Denies headache(s), Denies malaise and Denies weakness Eyes: Eyes: Denies blurry vision, Denies irritation and Denies loss of vision ENT: Denies otalgia, Denies headache(s), Denies nasal discharge, Denies sinus pain and Denies sore throat Cardiovascular: Cardiovascular: Denies chest pain, Denies irregular heart rhythm and Denies dyspnea Respiratory: Respiratory: Denies dyspnea Gastrointestinal: Gastrointestinal: Denies abdominal pain, Denies melena, Denies hematochezia, Denies diarrhea, Denies nausea and Denies vomiting Musculoskeletal: Musculoskeletal: Denies back pain, Denies myalgias and Reports arthralgias Integumentary/Breasts: Skin/Breast: Denies pruritus and Denies rash Neurologic: Denies headache(s), Denies loss of vision and Denies weakness Psychiatric: Psychiatric: Reports no additional psychiatric complaints Endocrine: Endocrine: Denies fatigue PMFSH Past Medical History Medical History Abnormal CT scan Type 2 diabetes mellitus (~2006) Rectal bleeding Left knee pain Medial meniscus tear Chronic nausea Gastroesophageal reflux disease Esophageal varices determined by endoscopy Irritable bowel syndrome with alternating bowel habits Portal hypertensive gastropathy Cirrhosis Bipolar 2 disorder Alopecia Cat scratch of forearm Body mass index (BMI) 35 or more (05/05/19) Vaginal yeast infection Type 2 diabetes mellitus with hyperglycemia Benign essential hypertension Abnormal vaginal bleeding Abnormal CT of brain Nausea & vomiting Hx of renal calculi (~07/2021) Portal hypertension (~07/2021) Chronic GERD Ganglion cyst Vitamin D deficiency Dyslipidemia BMI 40.0-44.9, adult Anxiety and depression HTN (hypertension) Type 2 diabetes mellitus with other circulatory complications (~2006) Avulsion fracture of right calcaneus with delayed healing (~2016) Other and unspecified hyperlipidemia (~2018) Hypertension complicating diabetes (~2013) Iron deficiency anemia due to chronic blood loss (~2016) 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: [facility] Microalbuminuria due to type 2 diabetes mellitus (~2017) Migraine without aura, not intractable, with status migrainosus (~1992) meds tried: midrin (helpful), imitrex (no help), zomig, topamax (helpful) Recurrent major depressive disorder in partial remission (~1992) Renal cyst, acquired (~2011) Hyperlipidemia associated with type 2 diabetes mellitus (~2018) Unspecified cirrhosis of liver (~2014) LOVE Surgical History Surgical History History of urethral stent (~07/2021) H/O: hysterectomy H/O left knee surgery Status post right foot surgery (~2017) History of cholecystectomy (~2017) Family History Family History Father Hypertension Cerebrovascular accident Family history of diabetes mellitus in first degree relative Diabetes mellitus Mother Hypertension Other Family history of Alzheimer's disease Family history of cardiovascular disease Family history of chronic obstructive pulmonary disease Family history of congestive heart failure Family history of hearing loss Family history of migraine headaches Family history of obesity Social History Social History Social History: , no children. Unemployed. Caffeine-rarely Smoking packs per day: 1 Smoking cigarettes per day: 20.0 Years smoked: 13 Smoking pack-years: 13.00 Smoking status: Current every day smoker Tobacco type: e-cigarettes/vaping Smoking end date: 10/14/06 Alcohol intake: former Drinks per week: 1 Substance use: never Substance use type: does not use Last use: Quit 1996 Do You Feel Safe in your Home?: Yes Lack of Transportation: No Lack of Food: Never True Current Housing: I Have Housing Concerned About Future Housing: No Difficulty Paying Gas/Electric Bills: No Difficulty Paying for Meds: No Currently Unemployed: No Education: Associate Degree Difficulty w/ Childcare or Family Care: No Living arrangements: with family Additional living arrangements comments: lives with soon to be x- Occupation/Education: occupation Gender identity (if verbalized by the patient): Female Spiritual care concerns: No Agree to blood products: Yes Comments At time of signature, agree with nursing past medical, surgical, social and family history. There is no relevant family history pertinent to the presenting complaint. Exam Const: General: cooperative, healthy appearing, comfortable, no acute distress and well nourished Nutritional Appearance: well nourished Orientation/consciousness: patient oriented x3 Limitations: no limitations HENMT: Head: normal to inspection, normocephalic and atraumatic Ears: hearing grossly normal bilaterally and external ears normal Face/Nose/Sinus: Normal external nose present, normal facial exam and face symmetric Face and sinus: normal facial exam and face symmetric Mouth: Yes lip normal Eyes: General: appearance normal, both eyes and all related structures Alignment and Position: alignment normal and position normal Periorbital: periorbital findings normal Eyelids: eyelids normal Pupils: Equal, round and reactive pupils present EOM: EOMs intact bilaterally Neck: Neck: normal visual inspection, full ROM and supple Chest: Chest palpation & inspection: normal inspection of the chest Resp: Effort & Inspection: normal respiratory effort and able to speak in complete sentences Auscultation: clear to auscultation bilaterally Cardio: Rate: regular rate Rhythm: regular rhythm Heart sounds: S1 normal heart sound present and S2 normal heart sound present GI: Inspection: normal to inspection Skin: General skin exam: normal color and no rashes or lesions noted Neuro: General: patient oriented x3 and moves all extremities Cranial nerves: Yes Equal, round and reactive pupils present Speech: normal speech Gait exam (Neuro): Normal gait present Extrem: General: normal to inspection, full ROM and no edema Left upper extremity: shoulder/upper arm inspection abnormal and normal ROM; no tenderness and no swelling, elbow/forearm normal to inspection, tenderness of the medial epicondyle, normal ROM and distal pulses intact; no swelling, no unusual warmth and no ecchymosis and wrist normal to inspection, normal ROM, normal vascular exam and radial pulse present; no tenderness, no swelling, no unusual warmth and no ecchymosis Psych: Appearance: grossly normal and well kempt Mental Status: mental status grossly normal Speech and movement: Normal speech and movement present Affect: normal affect Attitude: cooperative Thought process: Normal thought process present Course Course Emergency Course: Patient is aware of diagnosis, understands and agrees to treatment plan. Anticipatory guidance given. Patient agrees to follow-up as directed and is aware of reasons to seek care at the emergency department. Portions of this record may have been created with voice recognition software Level of Care: Express Care Visit Vital Signs Vital signs: Reviewed MDM - Extremity Injury (Upper) MDM Narrative Medical decision making narrative: Discussed x-ray is tetanus area this time as there is no injury and only shows bone. Discussed options of tendinitis versus bursitis. Will treat with ibuprofen and Abel wrap applied Pt well hydrated appearing, in no respiratory distress, hemodynamically stable. Recommend supportive care. The patient is stable at time of discharge the clinical impression was discussed and the patient was given the opportunity to ask questions, which were addressed as completely as possible given the information available at present. Anticipatory guidance and return to care precautions were discussed and the importance of primary care follow-up was stressed and encouraged. The patient voiced understanding of the plan, indications to return, and the need for follow-up. Exam findings show no acute concerns or changes Patient is appropriate for outpatient treatment and follow-up. Differential Diagnosis Differential diagnosis: Likely other (Tendinitis, bursitis, elbow strain) Medical Records Attestation: I reviewed the patient's medical records. Discharge Plan Discharge Clinical Impression: Left elbow tendinitis Patient Disposition: Home Condition: Stable Instructions: Tendinitis (ED) Additional Instructions: Minimize activities that aggravate the condition The RICE protocol. Follow the RICE protocol as soon as possible after your injury:. Ice should be immediately applied to keep the swelling down. It can be used for 20 to 30 minutes, three or four times daily. Do not apply ice directly to your skin. Compression dressings, bandages or abel-wraps will immobilize and support your injured elbow. Elevate your elbow above the level of your heart as often as possible during the first 48 hours. For pain, you may take: Tylenol 1000mg by mouth every 6 hours. Do not exceed 4000mg in 24 hours. Advil (Ibuprofen) 600 mg by mouth every 6 hours. Do not exceed 2400mg in 24 hours. 8 AM: Tylenol 11 AM: Ibuprofen 2 PM: Tylenol 5 PM: Ibuprofen 8 PM: Tylenol 11 PM: Ibuprofen 2 AM: Tylenol 5 AM: Ibuprofen Please schedule a follow-up visit with your personal physician for further evaluation and treatment within 1week OR If your symptoms persist, change or worsen significantly before you can contact your personal physician then please, without delay, go to the emergency department for further evaluation. Patient Language: Mauritian Prescriptions: New ibuprofen 600 mg tablet 600 mg PO QID Qty: 60 0RF No Action fluticasone propionate [Flonase Allergy Relief] 50 mcg/actuation spray,suspension 1 spray intranasal DAILY Qty: 16 0RF Rx Instructions: administer into each nostril carvedilol 6.25 mg tablet doxepin 25 mg capsule hydroxyzine HCl 25 mg tablet (DME) OneTouch Verio test strips Strip See Rx Instructions .Route Qty: 100 11RF Rx Instructions: Monitor glucose 3-4 times a day prazosin 2 mg capsule 2 mg PO QHS Vraylar 6 mg capsule 6 mg PO DAILY Baqsimi 3 mg/actuation spray,non-aerosol 3 mg intranasal ONCE PRN (Reason: hypoglycemia) Qty: 1 0RF Rx Instructions: as a single dose buspirone 15 mg tablet 15 mg PO BID Mounjaro 12.5 mg/0.5 mL pen injector 12.5 mg subcut WEEKLY Qty: 6 1RF ferrous sulfate 325 mg (65 mg iron) Tablet 325 mg PO DAILY vitamin B complex Tablet 1 tablet PO DAILY cholecalciferol (vitamin D3) [Vitamin D3] 50 mcg (2,000 unit) Capsule 50 mcg PO DAILY ondansetron 4 mg tablet,disintegrating 4 mg PO Q8H PRN (Reason: nausea and vomiting) Qty: 15 0RF duloxetine 30 mg capsule,delayed release(DR/EC) 30 mg PO BID Qty: 180 1RF (DME) pen needle, diabetic [BD Ultra-Fine Shantelle Pen Needle] 32 gauge x 5/32 needle See Rx Instructions .ROUTE .MEDSUPPLY Qty: 300 1RF Rx Instructions: three times daily albuterol sulfate 90 mcg/actuation HFA aerosol inhaler 1 puff INHALATION Q4H PRN (Reason: shortness of breath or wheezing) Qty: 6.7 1RF dexlansoprazole 60 mg capsule,biphase delayed releas 60 mg PO DAILY 30 Days Qty: 30 12RF rizatriptan 5 mg tablet See Rx Instructions PO .COMPLEX PRN (Reason: Migraine Headache) Qty: 10 5RF Rx Instructions: take 1 tab at onset of headache; if no relief may repeat 1 tab after at least 2 hrs; max = 3 tabs/24 hr PO folic acid 1 mg tablet 1 mg PO DAILY Qty: 90 1RF atorvastatin 80 mg tablet 80 mg PO QHS Qty: 90 1RF lisinopril 2.5 mg tablet See Rx Instructions .ROUTE .COMPLEX Qty: 90 0RF Dose Instruction: Take 1 tablet by mouth once daily Rx Instructions: Take 1 tablet by mouth once daily pantoprazole 40 mg tablet,delayed release (DR/EC) See Rx Instructions .ROUTE .COMPLEX Qty: 90 1RF Dose Instruction: TAKE 1 TABLET BY MOUTH IN THE MORNING Rx Instructions: TAKE 1 TABLET BY MOUTH IN THE MORNING topiramate 200 mg tablet See Rx Instructions .ROUTE .COMPLEX Qty: 90 1RF Dose Instruction: Take 1 tablet by mouth once daily Rx Instructions: Take 1 tablet by mouth once daily Jardiance 25 mg tablet 25 mg PO DAILY Qty: 90 1RF (DME) Dexcom G7 Sensor Device See Rx Instructions .ROUTE .MEDSUPPLY Qty: 9 3RF Rx Instructions: Use to monitor glcuose Follow-up/Referrals: Karin Hoyt MD [Primary Care Provider, Family Practice] - 3 Days Time of Disposition: 14:36
[2025-06-30 14:24] VITALS: BP 91/65; PULSE 100; RESP 18; TEMP 36.2; O2SAT 99
== END 2025-06-30 14:45 | disposition home or self-care (01) ==
PROVIDERS: Emergency Provider Nurse Practitioner Family; PCP Family Medicine
DX: M67.824 Other specified disorders of tendon, left elbow (principal); Z87.891 Personal history of nicotine dependence; E11.9 Type 2 diabetes mellitus without complications; Z79.84 Long term (current) use of oral hypoglycemic drugs; Z79.85 Long-term (current) use of injectable non-insulin antidiabetic drugs; K21.9 Gastro-esophageal reflux disease without esophagitis; K76.6 Portal hypertension; K31.89 Other diseases of stomach and duodenum; K75.81 Nonalcoholic steatohepatitis (NASH); L65.9 Nonscarring hair loss, unspecified; I10 Essential (primary) hypertension; E55.9 Vitamin D deficiency, unspecified; E78.5 Hyperlipidemia, unspecified
CPT/HCPCS: 99213; G0463

== ENCOUNTER 2025-07-20 12:18 | Emergency (ER) | payer OTHER, SELFPAY ==
--- OUTSIDE RECORDS SUMMARY | 2025-05-25 06:40 | XMS_ITS ---
Author Organization [facility] Address [address] [place] [address] Care Team Providers Care Plant Reliability Engineer Name Role Phone Allie Lopez Primary Care Provider [phone] REASON FOR VISIT 3 Month Psych F/U & Med Refill Encounters Encounter Location Date Provider Diagnosis [facility] [address] [address] 05/25/2025 Allie Lopez Plan Of Treatment No Information Progress Notes * Beulah MACHAODDOB:[birth year] (44 yo F)Acc No.[id number]:05/25/2025 UNLOCKED PROGRESS NOTE Patient: Piotr PALACIOSqueline Provider: SLOAN Arias :1980 A ge:44 Y S ex:Female Date:05/25/2025 Address:[address] , [place], [place] Subjective: * Chief Complaints: * 1 . 3 Month Psych F/U & Med Refill. * Medical History: Objective: * Vitals: Assessment: Plan: * Treatment: * * Electronic signature of Allie Lopez , [id number] on 07/20/2025 at 02:07 PM CDT Sign off status: Pending * Provider: SLOAN Arias Date: 0 05/25/2025 Generated for Prema ng/Famarianneg/eTransmitting on: 1 02:07 PM CDT
--- OUTSIDE RECORDS SUMMARY | 2025-07-19 10:00 | XMS_ITS | Encounter Summary ---
Author Organization [facility] Address [address] [place] [address] Phone Care Team Providers Care Purchasing Analyst Name Role Phone Ric Malik MD Unavailable [phone] Ric Malik MD Unavailable [phone] Natacha Hoyt MD Primary Care Provider Rubens Claros MD Unavailable [phone] Reason for Visit * Reason Comments Uti sx Encounter Details Date Type Department Care Team (Latest Contact Info) Description 07/19/2025 10:00 AM CDT Clinical Support [facility] [address] [facility] [place] [address] [facility] UTI symptoms (Primary Dx) Discharge Disposition: Discharged to home or Selfcare Social History Tobacco Use Types Packs/Day Years Used Date Smoking Tobacco: Former Cigarettes 1 13 0 04/11/1994 - 04/11/2007 Smokeless Tobacco: Never Alcohol Use Standard Drinks/Week Comments No 0 (1 standard drink = 0.6 oz pur e alcohol) PHQ-2 Answer Date Recorded Total Score - Questions 1-9 0 04/14 Sexually Active Control Partners Comments Yes Surgical Comments No Sex and Gender Information Value Date Recorded Sex Assigned at Not on file Legal Sex Female 8:10 PM CDT Gender Identity Not on file Sexual Orientation Not on file documented as of this encounter Last Filed Vital Signs Vital Sign Reading Time Taken Comments Blood Pressure - - Pulse - - Temperature - - Respiratory Rate 16 07/19/2025 10:14 AM CDT Oxygen Saturation - - Inhaled Oxygen Concentration - - Weight 70.3 kg (155 lb) 07/19/2025 10:14 AM CDT Height 154.9 cm (5' 1) 07/19/2025 10:14 AM CDT Body Mass Index 29.29 07/19/2025 10:14 AM CDT documented in this encounter Procedure Notes * Noni Bang - 07/19/2025 10:00 AM CDT Pt came into office for a urine sample for a urine culture per Dr. Claros. Urine sample obtained via sterile technique. Pt tolerated well. documented in this encounter Plan of Treatment Upcoming Encounters Date Type Department Care Team (Latest Contact Info) Description 07/28/2025 4:00 PM CD[facility] [address] [place] [address] Rubens Claros MD [address] [address] Discharge Disposition: Discharged to home or Selfcare 08/03/2025 2:40 PM CDT [facility] [address] [place] [address] Rubens Claros MD #[address] [address] 08/03/2025 2:40 PM CDT - 08/03/2025 4:40 PM CDT [facility] [address] [place] [address] Rubens Claros MD #[address] [address] CYSTOSCOPY, RIGHT URETEROSCOPY WITH HOLMIUM LASER LITHOTRIPSY 10/21/2025 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 Office Visit [facility] [address] [place] [address] Ric Malik MD [address] [facility] [address] [place] [address] Pending Results Name Type Priority Associated Diagnoses Date /Time CULTURE, URINE Microbiology Routine UTI symptoms 07/19/2025 10:14 AM CDT Scheduled Procedures Name Priority Associated Diagnoses Date/Ti me CYSTOSCOPY URETEROSCOPY WITH HOLMIUM LASER RIGHT NEPHROLITHIASIS 08/03/2025 2:40 PM CDT CYSTOSCOPY STENT INSERTION (SINGLE / BILATERAL) RIGHT NEPHROLITHIASIS 08/03/2025 2:40 PM CDT documented as of this encounter Visit Diagnoses Diagnosis UTI symptoms- Primary documented in this encounter Additional Health Concerns Assessment Noted Time PHQ-9 Depression Total Score: 0 05/19/20 20 2:36 PM CDT documented as of this encounter Care Teams Purchasing Analyst Relationship Specialty Start Date End Date Natacha Hoyt MD [address] [facility] [address] [place], [place] [id number] PCP - General Family Medicine 08/29/23 Ric Malik MD [address] [place] [phone] Consulting Physician Oncology 05/22/22 Ric Malik MD [address] [place] [phone] Consulting Physician Oncology 08/28/23 Rubens Claros MD #[address] [facility] [address] [place] [address] Consulting Physician Urology 06/07/25 documented as of this encounter
[2025-07-20] VITALS (8 sets, daily range): BP systolic 108–123; BP diastolic 75–86; PULSE 74–90; RESP 12–16; O2SAT 97–100
--- NOTE | ~2025-07-20 | CT_ITS ---
CT abdomen pelvis w con Clinical History: upper abd pain, nausea, diarrhea . Comparison: CT abdomen and pelvis without contrast 05/26/2025 Technique: Axial images lung bases to symphysis pubis IV contrast information not listed in PACS Coronal, sagittal reformats CT images acquired with automatic exposure control for dose reduction DLP: 471 mGy-cm Findings: Lung bases: Clear. Visualized heart and pericardium: Unremarkable. Liver: Cirrhosis. Small cyst segment IVb Gallbladder: Removed. Prominent hepatic duct. Spleen: Enlarged. Pancreas: Unremarkable. Adrenal glands: Unremarkable. Kidneys: Right kidney- No hydronephrosis. 10 mm stone. Left kidney- No hydronephrosis. No renal stones. Cysts. Tiny probable cyst Distal esophagus/stomach: Unremarkable. Small bowel loops: Scattered wall thickening. Colon: Diffuse wall thickening. Normal RLQ appendix. Nodes: No enlarged nodes. Peritoneum: Moderate scattered ascites. No free air. Urinary bladder: Unremarkable. Uterus: Removed. Adnexa: No masses. Bones: No acute bony abnormality. Soft tissues: Unremarkable. Aorta: No aneurysm or dissection. Atherosclerotic disease. IVC: Unremarkable. Main portal vein/SMV/splenic vein: Main portal vein dilated. IMPRESSION: 1. Enterocolitis. 2. Additional nonacute findings as above. Reviewed, dictated and finalized at location R.
--- NOTE | 2025-07-20 12:31 | ECG_ITS ---
Test Date: 2025-07-20 12:47:45 Measurements Intervals [place] Rate: 83 P: 3 NC: 116 QRS: 30 QRSD: 85 T: 29 QT: 378 QTc: 447 Interpretive Statements SINUS RHYTHM WITH SHORT NC INTERVAL BORDERLINE ST-T WAVE ABNORMALITY- INF/LAT LEADS BORDERLINE ECG No previous ECG available for comparison Electronically Signed On 07-20-2025 12:57:43 CDT by Everardo Seymour D.O.
[2025-07-20] MEDS: MORPHINE SULFATE (*CRX) 4 MG/ML INJ IV PUSH (13:00)
[2025-07-20] MEDS: ONDANSETRON INJ 4 MG/2 ML VIAL IV PUSH (13:00)
[2025-07-20 13:06] LABS: Hematocrit 38.6 % (37.0-47.0); Hemoglobin 12.7 g/dL (12.0-15.0); Immature Granulocyte Percent A 0.2 % (0-0.5); Immature Platelet Fraction Pct 2.4 % (0.9-11.2); Lymphocytes Absolute Auto 0.85 K/mm3 (0.9-3.2); Mean Corpuscular HGB Conc 32.9 g/dl (32-36); Mean Corpuscular Hemoglobin 30.0 pg (26-34); Mean Corpuscular Volume 91.0 fl (80-100); Nucleated Red Blood Cells Absolute Auto 0.000 K/mm3 (0.0-0.012); Nucleated Red Blood Cells Perc 0.0 % (0.0-0.2); Platelet Count Result 62 k/mm3 (150-375); Red Blood Count 4.24 M/mm3 (4.2-5.4); White Blood Count 4.2 K/mm3 (4.5-10.0)
--- NOTE | 2025-07-20 13:06 | PC.NURSE ---
Pt unable to provide urine sample at this moment. Pt advised to press call light when they feel like they can go.
[2025-07-20 13:13] LABS: Alanine Aminotransferase 28 U/L (6-35); Albumin Level 3.8 g/dL (3.5-5.1); Alkaline Phosphatase 69 U/L (38-126); Anion Gap 7 mmol/L (4-12); Aspartate Amino Transferase 36 U/L (14-36); Bilirubin,Total 1.1 mg/dL (0.2-1.3); Blood Urea Nitrogen 9 mg/dL (7-17); Calcium 8.9 mg/dL (8.4-10.2); Carbon Dioxide 23 mmol/L (22-30); Chloride 110 mmol/L (98-107); Estimated CRCL calculation 70 ml/min; Estimated Glomerular Filt Rate > 60; Glucose 131 mg/dL (65-110); Lipase 64 U/L (23-300); Potassium 3.1 mmol/L (3.4-5.0); Sodium 140 mmol/L (137-145); Total Protein 6.5 g/dL (6.3-8.2)
--- NOTE | 2025-07-20 13:16 | ED.ABDPAIN ---
HPI - Abdominal Pain General Chief Complaint: Abdominal Pain Stated Complaint: upper abd pain Time Seen by Provider: 07/20/25 12:21 Source: patient Mode of arrival: ambulatory Limitations: no limitations History of Present Illness HPI narrative: Patient is a 44-year-old female who presents the ED with report of upper abdominal pain. Patient reports pain began this morning. She has history of previous kidney stones and acid reflux, but states current pain does not feel similar to these. Is scheduled to undergo surgery on the for her kidney stones. Reports nausea and diarrhea. Denies vomiting. Denies rectal bleeding or melena. Denies fevers. Denies chest pain, shortness breath Related Data Home Medications ?Medication ?Instructions ?Recorded ?Confirmed ?Last Taken ?Type buspirone 15 mg tablet 15 mg PO BID 10/25/22 05/21/25 03/04/25 History prazosin 2 mg capsule 2 mg PO QHS 01/27/24 05/21/25 03/03/25 History cholecalciferol (vitamin D3) 50 50 mcg PO DAILY 07/24/24 05/21/25 03/04/25 History mcg (2,000 unit) capsule (Vitamin D3) ferrous sulfate 325 mg (65 mg 325 mg PO DAILY 07/24/24 05/21/25 03/04/25 History iron) tablet vitamin B complex 1 tablet PO DAILY 07/24/24 05/21/25 12/07/24 History cariprazine 6 mg capsule (Vraylar) 6 mg PO DAILY 09/21/24 05/21/25 03/04/25 History carvedilol 6.25 mg tablet mg 06/30/25 Unknown History doxepin 25 mg capsule mg 06/30/25 Unknown History hydroxyzine HCl 25 mg tablet mg 06/30/25 Unknown History Allergies Allergy/AdvReac Type Severity Reaction Status Date / Time sunflower oil Allergy Intermediate Hives Verified 06/30/25 14:18 sumatriptan (From Imitrex) AdvReac Intermediate Muscle Verified 06/30/25 14:18 Spasms Review of Systems Review of Systems: All systems reviewed & are unremarkable except as noted in HPI. All systems reviewed & are unremarkable except as noted in HPI and below PMFSH Past Medical History Medical History Abnormal CT scan Type 2 diabetes mellitus (~2006) Rectal bleeding Left knee pain Medial meniscus tear Chronic nausea Gastroesophageal reflux disease Esophageal varices determined by endoscopy Irritable bowel syndrome with alternating bowel habits Portal hypertensive gastropathy Cirrhosis Bipolar 2 disorder Alopecia Cat scratch of forearm Body mass index (BMI) 35 or more (05/05/19) Vaginal yeast infection Type 2 diabetes mellitus with hyperglycemia Benign essential hypertension Abnormal vaginal bleeding Abnormal CT of brain Nausea & vomiting Hx of renal calculi (~07/2021) Portal hypertension (~07/2021) Chronic GERD Ganglion cyst Vitamin D deficiency Dyslipidemia BMI 40.0-44.9, adult Anxiety and depression HTN (hypertension) Type 2 diabetes mellitus with other circulatory complications (~2006) Avulsion fracture of right calcaneus with delayed healing (~2016) Other and unspecified hyperlipidemia (~2018) Hypertension complicating diabetes (~2013) Iron deficiency anemia due to chronic blood loss (~2016) telephonic rn: Dr. Casillas: [facility] Microalbuminuria due to type 2 diabetes mellitus (~2017) Migraine without aura, not intractable, with status migrainosus (~1992) meds tried: midrin (helpful), imitrex (no help), zomig, topamax (helpful) Recurrent major depressive disorder in partial remission (~1992) Renal cyst, acquired (~2011) Hyperlipidemia associated with type 2 diabetes mellitus (~2018) Unspecified cirrhosis of liver (~2014) LOVE Surgical History Surgical History History of urethral stent (~07/2021) H/O: hysterectomy H/O left knee surgery Status post right foot surgery (~2017) History of cholecystectomy (~2017) Family History Family History Father Hypertension Cerebrovascular accident Family history of diabetes mellitus in first degree relative Diabetes mellitus Mother Hypertension Other Family history of Alzheimer's disease Family history of cardiovascular disease Family history of chronic obstructive pulmonary disease Family history of congestive heart failure Family history of hearing loss Family history of migraine headaches Family history of obesity Social History Social History Social History: , no children. Unemployed. Caffeine-rarely Smoking packs per day: 1 Smoking cigarettes per day: 20.0 Years smoked: 13 Smoking pack-years: 13.00 Smoking status: Current every day smoker Tobacco type: e-cigarettes/vaping Smoking end date: 10/14/06 Alcohol intake: former Drinks per week: 1 Substance use: never Substance use type: does not use Last use: Quit 1996 Do You Feel Safe in your Home?: Yes Lack of Transportation: No Lack of Food: Never True Current Housing: I Have Housing Concerned About Future Housing: No Difficulty Paying Gas/Electric Bills: No Difficulty Paying for Meds: No Currently Unemployed: No Education: Associate Degree Difficulty w/ Childcare or Family Care: No Living arrangements: with family Additional living arrangements comments: lives with soon to be x- Occupation/Education: occupation Gender identity (if verbalized by the patient): Female Spiritual care concerns: No Agree to blood products: Yes Exam Narrative: GENERAL: Well appearing, well-nourished, non-toxic, in no acute distress. HEAD: Normocephalic, atraumatic. RESPIRATORY: Airway patent, respirations nonlabored. Clear to auscultation bilaterally, no rales, rhonchi, wheezing. CARDIOVASCULAR: Regular rate and rhythm without murmurs, rubs, or gallops. ABDOMINAL: Soft, mild diffuse tenderness in periumbilical region/epigastric region, no rebound, nondistended. Normoactive BS. MUSCULOSKELETAL: Moves all extremities. No gross deformities. SKIN: Warm, dry, normal color. NEURO: A&O X3. Speech clear. Cranial nerves II-XII grossly intact. Steady gait. No ataxic movements. PSYCHIATRIC: Appropriate mood and affect. Normal interaction. Course Vital Signs Vital signs: Vital Signs Pulse Rate 90 07/20/25 12:30 Respiratory Rate 13 07/20/25 12:30 Blood Pressure 112/82 07/20/25 12:30 Pulse Oximetry 99 07/20/25 12:30 Pulse Rate 83 07/20/25 13:31 Respiratory Rate 14 07/20/25 13:31 Blood Pressure 114/75 07/20/25 13:31 Pulse Oximetry 98 07/20/25 13:31 Oxygen Delivery Room Air 07/20/25 12:40 MDM - Abdominal Pain MDM Narrative Medical decision making narrative: Patient presented to ED with upper abdominal pain that began this morning. Reports nausea, diarrhea. Vital signs are stable upon arrival. Patient is in no acute distress. Cbc with mild leukopenia, consistent with previous records. Thrombocytopenia at 62, also consistent with previous records. CMP fairly unremarkable, potassium slightly low at 3.1. Given oral replacement. Otherwise stable electrolytes. Kidney function stable. Mag borderline 1.7, given IV replacement. EKG w/o ischemic changes. Trop undetectable. UA w/ 11-20 WBC, no other significant signs of infection. She denies urinary complaints. Will send for culture. CT scan of abdomen/pelvis was obtained and showing evidence of enterocolitis. Consistent with clinical picture. Discussed lab and imaging findings with patient. She is feeling improved with supportive therapy in the ED. Feel she is safe for discharge home at this time. Will start Augmentin for possible infectious enterocolitis, also prescribe Bentyl, Zofran for home use. Recommended follow-up with PCP. Given strict return precautions. Discharged in stable condition Medical Records Attestation: I reviewed the patient's medical records. Lab Data Attestation: I reviewed the patient's lab results. 07/20/25 12:54 07/20/25 12:54 Labs: Lab Results 07/20/25 07/20/25 Range/Units 12:54 14:43 WBC 4.2 L (4.5-10.0) K/mm3 RBC 4.24 (4.2-5.4) M/mm3 Hgb 12.7 (12.0-15.0) g/dL Hct 38.6 (37.0-47.0) % MCV 91.0 (80-100) fl MCH 30.0 (26-34) pg MCHC 32.9 (32-36) g/dl RDW 14.8 H (11.5-14.5) % Plt Count 62 L (150-375) k/mm3 MPV 10.6 H (7.4-10.4) fl Immature Gran % (Auto) 0.2 (0-0.5) % Neut % (Auto) 68.7 (45.5-73.1) % Lymph % (Auto) 20.3 (18.3-44.2) % [place] % (Auto) 6.0 (2.6-8.5) % Eos % (Auto) 4.3 (0-4.4) % Baso % (Auto) 0.5 (0.2-1.2) % Lymph # (Auto) 0.85 L (0.9-3.2) K/mm3 [place] # (Auto) 0.3 (0.1-0.6) K/mm3 Eos # (Auto) 0.2 (0-0.3) K/mm3 Baso # (Auto) 0.0 (0.0-0.1) K/mm3 Abs Immat Gran (auto) 0.01 (0.00-0.031) K/mm3 Absolute Neuts (auto) 2.9 (1.3-6.7) K/mm3 Absolute Nucleated RBC 0.000 (0.0-0.012) K/mm3 Nucleated RBC % 0.0 (0.0-0.2) % % Immature Plt Fraction 2.4 (0.9-11.2) % Sodium 140 (137-145) mmol/L Potassium 3.1 L (3.4-5.0) mmol/L Chloride 110 H (98-107) mmol/L Carbon Dioxide 23 (22-30) mmol/L Anion Gap 7 (4-12) mmol/L BUN 9 (7-17) mg/dL Creatinine 0.78 (0.7-1.0) mg/dL Estim Creat Clear Calc 70 ml/min Estimated GFR > 60 (59 - ) Glucose 131 H (65-110) mg/dL Calcium 8.9 (8.4-10.2) mg/dL Magnesium 1.7 (1.6-2.3) mg/dL Total Bilirubin 1.1 (0.2-1.3) mg/dL AST 36 (14-36) U/L ALT 28 (6-35) U/L Alkaline Phosphatase 69 (38-126) U/L Troponin I < 0.012 (0.000-0.034) ng/mL Total Protein 6.5 (6.3-8.2) g/dL Albumin 3.8 (3.5-5.1) g/dL Lipase 64 (23-300) U/L Urine Color Yellow (Yellow) Urine Appearance Clear (Clear) Urine pH 6.5 (5.0-9.0) Ur Specific [place] > 1.045 H (1.001-1.035) Urine Protein 1+ H (Negative) mg/dL Urine Glucose (UA) 2+ H (Negative) mg/dL Urine Ketones Negative (Negative) mg/dL Ur Blood (Man) Non-hemolyzed trace H (Negative) Urine Nitrate Negative (Negative) Urine Bilirubin Negative (Negative) Urine Urobilinogen 1.0 (<2.0) mg/dL Add Ur Microanalysis Reviewed Leukocyte Esterase Rfl Negative (Negative) KATIE/UL Urine RBC 6-10 H (0-2) /hpf Urine WBC 11-20 H (0-3) /hpf Ur Squamous Epith Cells None seen (Few) /hpf Urine Bacteria None seen /hpf Urine Casts 0-2 Imaging Data Attestation: I personally reviewed and interpreted this imaging study as follows: Radiologist's impression: ITS Impressions Abdomen/Pelvis CT 07/20/25 13:52 IMPRESSION: 1. Enterocolitis. 2. Additional nonacute findings as above. ECG Data EKG #1: Attestation: I personally reviewed and interpreted this ECG as follows: ECG completion date: 07/20/25 ECG completion time: 12:47 normal rate (83), sinus rhythm and no ST changes Discharge Plan Discharge Clinical Impression: Enterocolitis Patient Disposition: Home Condition: Stable Instructions: Antibiotic Form, Colitis (ED), Enteritis (ED) Additional Instructions: Take antibiotics as prescribed for inflammation of intestines. Recommend Tylenol, Bentyl as needed for further abdominal discomfort. Utilize zofran as needed for further nausea. Increase fluid intake. Recommend electrolyte rich fluids, gatorade, pedialyte, body armour. Recommend clear liquids or bland diet until symptoms improve, such as bananas, rice, applesauce, toast, or crackers. Follow up with your primary care doctor for further evaluation. Return to the ED if you experience worsening or severe symptoms, unable to keep down food or drink, severe pain, fevers, rectal bleeding, vomiting blood, or any other symptoms of concern. Patient Language: American Prescriptions: New dicyclomine 20 mg tablet 20 mg PO TID PRN (Reason: Abdominal Discomfort) Qty: 15 0RF ondansetron 4 mg tablet,disintegrating 4 mg PO Q8H PRN (Reason: nausea and vomiting) Qty: 15 0RF amoxicillin-pot clavulanate 875-125 mg tablet 1 tablet PO Q12H 7 Days Qty: 14 0RF No Action fluticasone propionate [Flonase Allergy Relief] 50 mcg/actuation spray,suspension 1 spray intranasal DAILY Qty: 16 0RF Rx Instructions: administer into each nostril carvedilol 6.25 mg tablet doxepin 25 mg capsule hydroxyzine HCl 25 mg tablet ibuprofen 600 mg tablet 600 mg PO QID Qty: 60 0RF (DME) OneTouch Verio test strips Strip See Rx Instructions .Route Qty: 100 11RF Rx Instructions: Monitor glucose 3-4 times a day prazosin 2 mg capsule 2 mg PO QHS Vraylar 6 mg capsule 6 mg PO DAILY Baqsimi 3 mg/actuation spray,non-aerosol 3 mg intranasal ONCE PRN (Reason: hypoglycemia) Qty: 1 0RF Rx Instructions: as a single dose buspirone 15 mg tablet 15 mg PO BID Mounjaro 12.5 mg/0.5 mL pen injector 12.5 mg subcut WEEKLY Qty: 6 1RF ferrous sulfate 325 mg (65 mg iron) Tablet 325 mg PO DAILY vitamin B complex Tablet 1 tablet PO DAILY cholecalciferol (vitamin D3) [Vitamin D3] 50 mcg (2,000 unit) Capsule 50 mcg PO DAILY ondansetron 4 mg tablet,disintegrating 4 mg PO Q8H PRN (Reason: nausea and vomiting) Qty: 15 0RF duloxetine 30 mg capsule,delayed release(DR/EC) 30 mg PO BID Qty: 180 1RF (DME) pen needle, diabetic [BD Ultra-Fine Shantelle Pen Needle] 32 gauge x 5/32 needle See Rx Instructions .ROUTE .MEDSUPPLY Qty: 300 1RF Rx Instructions: three times daily albuterol sulfate 90 mcg/actuation HFA aerosol inhaler 1 puff INHALATION Q4H PRN (Reason: shortness of breath or wheezing) Qty: 6.7 1RF dexlansoprazole 60 mg capsule,biphase delayed releas 60 mg PO DAILY 30 Days Qty: 30 12RF rizatriptan 5 mg tablet See Rx Instructions PO .COMPLEX PRN (Reason: Migraine Headache) Qty: 10 5RF Rx Instructions: take 1 tab at onset of headache; if no relief may repeat 1 tab after at least 2 hrs; max = 3 tabs/24 hr PO folic acid 1 mg tablet 1 mg PO DAILY Qty: 90 1RF atorvastatin 80 mg tablet 80 mg PO QHS Qty: 90 1RF lisinopril 2.5 mg tablet See Rx Instructions .ROUTE .COMPLEX Qty: 90 0RF Dose Instruction: Take 1 tablet by mouth once daily Rx Instructions: Take 1 tablet by mouth once daily pantoprazole 40 mg tablet,delayed release (DR/EC) See Rx Instructions .ROUTE .COMPLEX Qty: 90 1RF Dose Instruction: TAKE 1 TABLET BY MOUTH IN THE MORNING Rx Instructions: TAKE 1 TABLET BY MOUTH IN THE MORNING topiramate 200 mg tablet See Rx Instructions .ROUTE .COMPLEX Qty: 90 1RF Dose Instruction: Take 1 tablet by mouth once daily Rx Instructions: Take 1 tablet by mouth once daily Jardiance 25 mg tablet 25 mg PO DAILY Qty: 90 1RF (DME) Dexcom G7 Sensor Device See Rx Instructions .ROUTE .MEDSUPPLY Qty: 9 3RF Rx Instructions: Use to monitor glcuose Follow-up/Referrals: Karin Hoyt MD [Primary Care Provider, Family Practice] Time of Disposition: 15:11
[2025-07-20 13:23] LABS: Troponin I < 0.012 ng/mL (0.000-0.034)
[2025-07-20] MEDS: PANTOPRAZOLE SODIUM IV 40 MG VIAL IV PUSH (13:23)
[2025-07-20] MEDS: POTASSIUM CHLORIDE 20 MEQ ER TABLET 40 MEQ PO (13:23)
--- NOTE | 2025-07-20 13:30 | PC.NURSE ---
pt still unable to use the restroom
--- NOTE | 2025-07-20 13:40 | PC.NURSE ---
Pt. to CT. Pt. states she does not have to urinate because I went before I left the house. Provider notified. See MAR for intervention.
[2025-07-20 13:42] LABS: Magnesium 1.7 mg/dL (1.6-2.3)
[2025-07-20] MEDS: SODIUM CHLORIDE 0.9% IV 1,000 ML 999 ML IV CONT (14:00)
[2025-07-20] MEDS: MAGNESIUM SULF 2 GM/WATER 50ML 2 GM/50 ML BAG IVPB (14:02)
--- OUTSIDE RECORDS SUMMARY | 2025-07-20 14:07 | XMS_ITS | Clinical Summary ---
Author Organization [facility] Address [address] 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 This disclosure is being madepursuant to the Care Everywhere program and may not contain all information available regarding this patient. Last updated 18.[facility] Allergies Active Allergy Reactions Criticality Noted Date Comments Sumatriptan Myalgias 03/15/2023 Sumatriptan Headache 10/07/2024 [place] Oil Rash,Itching,Skin Reactions Medium 08/01/2017 actual sunflowers themselves [place] Oil Nausea and/or Vomiting 10/07/2024 Medications * Be aware that medications may not be up to date on this document. Alwaysverify current medications with the patient. cyclobenzaprin e (FLEXERIL) 10 MG tablet Take 1 (one) tablet by mouth 3 times daily as needed for Muscle Spasms 7 Active diphenhydrAMIN E (BENADRYL) 25 MG tablet Take 1 (one) tablet by mouth every 6 hours as needed for Itching, Allergies or Insomnia 7 Active DULoxetine (CYMBALTA) 30 MG capsule Take 1 (one) capsule by mouth 2 times daily 0 Active BD VEO INSULIN SYRINGE U/F 31G X 15/64 1 ML syringes USE DIRECTED TWICE DAILY WITH INSULIN 0 Active insulin NPH (HumuLIN N; NovoLIN N) vial Inject 70 (seventy) Units subcutaneously 3 times daily Active Dexlansoprazol e (DEXILANT PO) Take 60 mg by mouth once daily Active hydrOXYzine pamoate (Vistaril) 25 MG capsule Take 1 (one) capsule by mouth 4 times daily as needed Active Glucagon 3 MG/DOSE POWD [place] 3 mg into the nose as needed (hypoglycemia) Active clotrimazole (Lotrimin AF) 1 % cream Apply 1 applicatorful to affected area 2 times daily as needed Active albuterol HFA (Proventil; Ventolin; Proair) 108 (90 Base) MCG/ACT inhaler Inhale 1 (one) puff by mouth every 6 hours as needed for Wheezing or Shortness of Breath 1 Active betamethasone valerate (Valisone) 0.1 % cream 2 Active topiramate (Topamax) 200 MG tablet Take 1 (one) tablet by mouth once daily 2 Active doxepin (SINEquan) 10 MG capsule Take 1 (one) capsule by mouth at bedtime Active tirzepatide (Mounjaro) 10 MG/0.5ML injection Inject 10 (ten) mg subcutaneously every 7 days (once a week) Active busPIRone (Buspar) 15 MG tablet Take 1 (one) tablet by mouth 2 times daily 60 tablet 4 Active hydrOXYzine HCl (Atarax) 50 MG tablet Take 1 (one) tablet by mouth 3 times daily as needed for Itching 30 tablet 4 Active Additional Information Patient not taking.Reason: Patient adjusted (Taking Vistaril), Reported on 05/07/2025 ondansetron, disintegrating , (Zofran ODT) 4 MG tablet Take 1 (one) tablet by mouth every 6 hours as needed for Nausea/Vomiting Allow tablet to dissolve on the tongue 30 tablet 4 Active atorvastatin (Lipitor) 80 MG tablet Take 1 (one) tablet by mouth at bedtime 30 tablet 4 Active prazosin (Minipress) 2 MG capsule Take 1 (one) capsule by mouth at bedtime 30 capsule 4 Active polyethylene glycol 3350 (Miralax) 17 g packet Take 17 (seventeen) g by mouth once daily as needed for Constipation 30 packet 4 Active pantoprazole EC (Protonix) 40 MG tablet Take 1 (one) tablet by mouth once daily 30 tablet 4 Active insulin NPH pen Inject 30 (thirty) Units subcutaneously 2 times daily, before breakfast and supper 3 mL 4 Active Additional Information Patient not taking.Reason: Patient adjusted (Patient reports she is not using insulin anymore), Reported on 05/07/2025 Ferrous Sulfate (IRON PO) Active Continuous Glucose Sensor (ChipIn G7 Sensor) [facility] APPLY 1 SENSOR TOPICALLY, CHANGE AND REPLACE EVERY 10 DAYS. USE TO MONITOR GLUCOSE. 4 Active nystatin (Mycostatin) 590241 UNIT/GM cream Apply to affected area 2 times daily 5 Active rizatriptan (Maxalt) 5 MG tablet Take 1 (one) tablet by mouth once 5 Active folic acid (Folvite) 1 MG tablet Take 1 (one) tablet by mouth once daily 30 tablet 2 06/18/2025 12:18 PM CDT 5 Active midodrine (Proamatine) 5 MG tablet Take 1 (one) tablet by mouth 3 times daily before meals. Please hold if your blood pressure is greater than 140/90 90 tablet 2 06/18/2025 12:18 PM CDT 5 Active Active Problems Problem Noted Date Diagnosed Date Idiopathic hypotension 06/18/2025 Assessment & Plan (06/18/2025 12:42 PM CDT): - started midodrine on day of discharge - held lisinopril and carvedilol Acute pyelitis 06/14/2025 Assessment & Plan (06/18/2025 12:42 PM CDT): - CTAP showed right kidney 8 mm nonobstructive renal stone, calyx dilatation and ureteritis -Hx of renal stones, s/p stenting for ureteral stenosis in 2020 -UA pos for hematuria, pyuria -Follows urology OP, last seen 06/11/[address] Claros at [facility] w/ plan for ureteroscopy +/- stent placement. -Urology consulted, no procedural intervention indicated at this time. -urine cx neg Plan: - Follow up with local urologist Nephrolithiasis 06/14/2025 Assessment & Plan (06/18/2025 12:42 PM CDT): - CTAP showed right kidney 8 mm nonobstructive renal stone, calyx dilatation and ureteritis -Hx of renal stones, s/p stenting for ureteral stenosis in 2020 -UA pos for hematuria, pyuria -Follows urology OP, last seen 06/11/[address] Claros at [facility] w/ plan for ureteroscopy +/- stent placement. -Urology consulted, no procedural intervention indicated at this time. -urine cx neg Plan: - Follow up with local urologist LOVE (nonalcoholic steatohepatitis) 06/14/2025 Assessment & Plan (06/18/2025 12:42 PM CDT): - EGD 9 which showed >5 mm distal esophagus varices with stigmata of recent bleeding, severe hypertensive gastropathy with spontaneous bleeding, now s/p banding Plan: - holding carvedilol given hypotension Hematemesis with nausea 06/14/2025 Assessment & Plan (06/18/2025 12:42 PM CDT): - EGD 9/2 which showed >5 mm distal esophagus varices with stigmata of recent bleeding, severe hypertensive gastropathy with spontaneous bleeding, now s/p banding Plan: - holding carvedilol given hypotension Bipolar disorder 09/12/2024 Iron deficiency anemia due to chronic blood loss 10/09/2023 Secondary esophageal varices with bleeding 05/31 Assessment & Plan (06/18/2025 12:42 PM CDT): - EGD 9/2 which showed >5 mm distal esophagus varices with stigmata of recent bleeding, severe hypertensive gastropathy with spontaneous bleeding, now s/p banding Plan: - holding carvedilol given hypotension Calculus of kidney 07/17/2021 Liver lesion 06/04/2019 LUQ abdominal pain 12/04/2018 Obesity 11/16/2017 Gastro-esophageal reflux disease without esophag itis 11/16/2017 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 Hyperlipidemia 11/16/2017 Type 2 diabetes mellitus without complications 0 11/16/2017 Overview (07/14/2025): IMO 01/13/2025 IMO 07/14/2025 Resolved Problems Problem Noted Date Diagnosed Date [...] Encounters Date Type Department Care Team Description 07/06/2025 Travel 06/24/2025 Results Follow-Up [facility] [address] [place] [phone] Salomon Sapp MD 06/15/2025 4:28 PM CDT - 06/15/2025 4:58 PM CDT Surgery [facility] [address] [place] [phone] Susanna Richter DO EGD 06/15/2025 3:24 PM CDT Anesthesia Event [facility] [address] [place] [phone] Ninfa Cruz MD 06/14/2025 7:56 PM CDT - 06/18/2025 1:48 PM CDT Hospital Encounter [facility] [address] [place] [phone] Mukul Dubon MD Befeler, Alex S, MD Elbeshbeshy, Hany Ahmed, MD Gastroenterology Discharge Disposition: Home or Self Care 06/14/2025 Travel 05/10/2025 Patient Outreach [facility] [address] [place] [address] Marguerite Clemens, RN 05/07/2025 12:30 PM CDT Office Visit [facility] [address] [facility] [place] [address] Salomon Sapp MD 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) (Primary Dx); Liver lesion; Gastro-esophageal reflux disease without esophagitis; Secondary esophageal varices with bleeding (HCC) 05/07/2025 Travel 05/03/2025 11:21 AM CDT Anesthesia Event [facility] [address] [place] [address] Ninfa Cruz MD 05/03/2025 10:30 AM CDT - 05/03/2025 11:00 AM CDT Surgery [facility] [address] [place] [address] Salomon Sapp MD EGD +/- banding w/ Sekou 05/03/2025 9:01 AM CDT - 05/03/2025 12:38 PM CDT Hospital Encounter [facility] [address] [place] [address] Salomon Sapp MD Surgery General Discharge Disposition: Home or Self Care 05/03/2025 Travel 04/19/2025 Patient Outreach [facility] [address] [place] [address] Marguerite Clemens, RN from Last 3 Months Immunizations Immunization Administration [...] you have a drink containing alcohol? Never 06/15/2025 Q2: How many drinks containi ng alcohol do you have on a typical day when you are drinking? Patient does not drink Q3: How often do you have si x or more drinks on one occasion? Never 06/15/2025 Overall Financial Resource Strain (CARDIA) Answe r Date Recorded How hard is it for you to pa y for the very basics like food, housing, medical care, and heating? Not hard at all 06/15/2025 [facility] [place] [facility] - Occupational Stress Questionnaire Answer Date Recorded Do you feel stress - tense, restless, nervous, or anxious, or unable to sleep at night because your mind is troubled all the time - these days? Only a little 06/15/2025 Hunger Vital Sign Answer Date Recorded Within the past 12 months, y ou worried that your food would run out before you got the money to buy more. Never true 06/15/20 25 Within the past 12 months, t he food you bought just didn't last and you didn't have money to get more. Never true 06/15/2025 PRAPARE - Transportation Answer Date Re corded In the past 12 months, has l ack of transportation kept you from medical appointments or from getting medications? No 11/2024 In the past 12 months, has l ack of transportation kept you from meetings, work, or from getting things needed for daily living? No 06/15/2025 Housing Stability Vital Sign Answer Mark e Recorded In the last 12 months, was t here a time when you were not able to pay the mortgage or rent on time? No 06/15/2025 In the past 12 months, how m any times have you moved where you were living? 1 06/15/2025 At any time in the past 12 m [facility], were you homeless or living in a chcf (including now)? No 06/15/2025 Comments No Sex and Gender Information Value Date Recorded Sex Assigned at Female 04/21/2024 2:38 PM CDT Legal Sex Female 5:23 PM BIOLOGICAL SCIENCES INSTRUCTOR Gender Identity Female 04/21/2024 2:38 PM CDT Sexual Orientation Straight 04/21/2024 2: 38 PM CDT Last Filed Vital Signs Vital Sign Reading Time Taken Comments Blood Pressure 89/53 06/18/2025 11:34 AM CDT Pulse 68 06/18/2025 11:34 AM CDT Temperature 36.7 C (98.1 F) 06/18/2025 11:34 AM CDT Respiratory Rate 18 06/18/2025 11:34 AM CDT Oxygen Saturation 97% 06/18/2025 11:34 AM CDT Inhaled Oxygen Concentration - - Weight 71.9 kg (158 lb 7 oz) 06/15/2025 7:47 PM CDT Height 154.9 cm (5' 1) 06/15/2025 7:47 PM CDT Body Mass Index 29.94 06/15/2025 7:47 PM CDT Plan of Treatment Upcoming Encounters Date Type Department Care Team (Latest Contact Info) Description 08/09/2025 10:30 AM CDT Hospital Encounter [facility] [address] [place] [phone] Salomon Sapp MD [address] [place] [address] [address] [place] [address] Surgery General 08/09/2025 10:30 AM CDT - 08/09/2025 11:00 AM CDT Surgery [facility] [address] [place] [phone] Salomon Sapp MD [address] [place] [address] [address] [place] [address] EGD--w/ Sekou 09/24/2025 9:30 AM BIOLOGICAL SCIENCES INSTRUCTOR Appointment [facility] [address] [place] [phone] Salomon Sapp MD [address] [place] [address] [address] [place] [address] 11/26/2025 10:00 AM BIOLOGICAL SCIENCES INSTRUCTOR Office Visit [facility] [address] [place] [address], [facility] [place] [phone] Salomon Sapp MD [address] [place] [address] [address] DIV OF GASTROENTEROLOGY [place], [place] [id number] Scheduled Procedures Name Priority Associated Diagnoses Date/Ti [...] SCREENING 12/04/2018 DIABETES-FOOT EXAM WITH MONOFILAMENT 12/04/2018 DIABETES - URINE PROTEIN SCREENING 10/14/2024 COVID-19 VACCINE (1 - season) 2025 INFLUENZA VACCINE (#1) 2025 , 07/15/2020, 09/14/2019 DIABETES-HGB A1C 12/13/2025 06/15/2025, , 09/12/2024, Additional history exists DIABETES-SERUM CREATININE 06/22/20262024, 06/18/2025, 06/17/2025, Additional history exists ZOSTER VACCINE (1 of [...] your last dose Safety General On track( 025 1:27 PM CDT) Nay Simental, RN Note: Expected end date: ongoing Interventions: Your [...] Procedure Name Priority Date/Time Associated Diagnosis Comments ALPHA FETOPROTEIN BLOOD TUMOR MARKER 06/22/2025 11:31 AM CDT PT-INR 06/22/2025 11:31 AM CDT CBC W AUTO DIFFERENTIAL 06/22/2025 11:31 AM CDT COMPREHENSIVE METABOLIC PANEL 06/22/2025 11:31 AM CDT GLUCOSE - POINT OF CARE Routine 06/18/2025 12:15 PM CDT GLUCOSE - POINT OF CARE Routine 06/18/2025 5:04 AM CDT DIFFERENTIAL MANUAL Routine 06/18/2025 2 :58 AM CDT CBC W AUTO DIFFERENTIAL Routine 06/18/2025 2:58 AM CDT PHOSPHORUS BLOOD Routine 06/18/2025 2:58 AM CDT MAGNESIUM BLOOD Routine 06/18/2025 2:58 AM CDT PT-INR Routine 06/18/2025 2:58 AM CDT COMPREHENSIVE METABOLIC PANEL Routine 06/18/2025 2:58 AM CDT CULTURE BLOOD Timed 06/18/2025 2:58 AM CDT GLUCOSE - POINT OF CARE Routine 06/17/2025 11:35 PM CDT GLUCOSE - POINT OF CARE Routine 06/17/2025 5:19 PM CDT GLUCOSE - POINT OF CARE Routine 06/17/2025 5:08 PM CDT CULTURE BLOOD Timed 06/17/2025 12:45 PM CDT GLUCOSE - POINT OF CARE Routine 06/17/2025 12:10 PM CDT URINALYSIS REFLEX MICROSCOPIC REFLEX CULTURE Routine 06/17/2025 10:00 AM CDT GLUCOSE - POINT OF CARE Routine 06/17/2025 6:18 AM CDT DIFFERENTIAL MANUAL Routine 06/17/2025 2 :48 AM CDT CBC W AUTO DIFFERENTIAL Routine 06/17/2025 2:48 AM CDT PHOSPHORUS BLOOD Routine 06/17/2025 2:48 AM CDT MAGNESIUM BLOOD Routine 06/17/2025 2:48 AM CDT PT-INR Routine 06/17/2025 2:48 AM CDT COMPREHENSIVE METABOLIC PANEL Routine 06/17/2025 2:48 AM CDT GLUCOSE - POINT OF CARE Routine 06/16/2025 11:08 PM CDT GLUCOSE - POINT OF CARE Routine 06/16/2025 5:09 PM CDT GLUCOSE - POINT OF CARE Routine 06/16/2025 11:25 AM CDT GLUCOSE - POINT OF CARE Routine 06/16/2025 6:52 AM CDT BLOOD TYPE VERIFICATION STAT 06/16/2025 3:33 AM CDT PHOSPHORUS BLOOD Routine 06/16/2025 3:33 AM CDT MAGNESIUM BLOOD Routine 06/16/2025 3:33 AM CDT CBC W/O DIFFERENTIAL Routine 06/16/2025 3:33 AM CDT PT-INR Routine 06/16/2025 3:33 AM CDT COMPREHENSIVE METABOLIC PANEL Routine 06/16/2025 3:33 AM CDT GLUCOSE - POINT OF CARE Routine 06/15/2025 11:59 PM CDT CBC W/O DIFFERENTIAL STAT 06/15/2025 9:21 PM CDT GLUCOSE - POINT OF CARE Routine 06/15/2025 7:56 PM CDT GLUCOSE - POINT OF CARE Routine 06/15/2025 4:16 PM CDT ENDOTRACHEAL TUBE NOTE Routine 06/15/2025 4:02 PM CDT CO ED EGD FLEX TRANSORAL DX 06/15/2025 3:19 PM CDT Hematemesis, unspecified whether nausea present GLUCOSE - POINT OF CARE Routine 06/15/2025 3:03 PM CDT EGD Routine 06/15/2025 2:39 PM CDT GLUCOSE - POINT OF CARE Routine 06/15/2025 12:05 PM CDT CULTURE BLOOD Timed 06/15/2025 11:10 AM CDT CULTURE BLOOD Timed 06/15/2025 11:00 AM CDT GLUCOSE - POINT OF CARE Routine 06/15/2025 8:39 AM CDT GLUCOSE - POINT OF CARE Routine 06/15/2025 5:56 AM CDT HEMOGLOBIN A1C MARIA ISABEL 06/15/2025 4:56 AM CDT PHOSPHORUS BLOOD STAT 06/15/2025 4:56 AM CDT MAGNESIUM BLOOD STAT 06/15/2025 4:56 AM CDT CBC W/O DIFFERENTIAL STAT 06/15/2025 4:56 AM CDT PT-INR STAT 06/15/2025 4:56 AM CDT COMPREHENSIVE METABOLIC PANEL STAT 06/15/2025 4:56 AM CDT GLUCOSE - POINT OF CARE Routine 06/14/2025 11:09 PM CDT URINALYSIS REFLEX MICROSCOPIC REFLEX CULTURE STAT 06/14/2025 8:49 PM CDT CULTURE URINE STAT 06/14/2025 8:[address] ANGIO ABDOMEN PELVIS STAT 06/14/2025 8:45 PM CDT Hematemesis with nausea TYPE + SCREEN PANEL STAT 06/14/2025 8 :44 PM CDT PTT STAT 06/14/2025 8:44 PM CDT ALCOHOL ETHYL BLOOD STAT 06/14/2025 8 :30 PM CDT LIPASE BLOOD STAT 06/14/2025 1:42 PM CDT PT-INR STAT 06/14/2025 1:42 PM CDT COMPREHENSIVE METABOLIC PANEL STAT 06/14/2025 1:42 PM CDT CBC W AUTO DIFFERENTIAL STAT 06/14/2025 1:42 PM CDT CO ED EGD FLEX TRANSORAL DX 05/03/2025 11:16 [...] OF CARE Routine 05/03/2025 9:53 AM CDT ENDOSCOPY, COLON, DIAGNOSTIC Routine 08/27/2022 12:28 PM BIOLOGICAL SCIENCES INSTRUCTOR HEPATITIS C ANTIBODY Routine 11/14/2017 10:15 AM BIOLOGICAL SCIENCES INSTRUCTOR from Last 3 Months or Most Recently Relevant to Health Maintenance Results * ALPHA FETOPROTEIN BLOOD TUMOR MARKER (06/22/2025 11:31 AM CDT) Pathologist [facility] Alpha-Fetoprotei n Tumor Marker 3.6 ng/mL [facility] Comment: Reference Range: <6.1 The use of AFP as a tumor marker in females is not recommended. This test was performed using the [employer] chemiluminescent method. Values obtained from different assay methods cannot be used interchangeably. AFP levels, regardless of value, should not be interpreted as absolute evidence of the presence or absence of disease. Test Performed at: [facility] [address] [address] CRUZ KEARNEY 06/22/2025 11:3 1 AM CDT 06/22/2025 11:32 AM CDT Salomon Sapp MD LAB - CHEMISTRY ORDERABLES Fin al Result [address] [address] * (ABNORMAL) PT-INR (06/22/2025 11:31 AM CDT) Only the most recent of6 resultswithin the time period is included. Pathologist [facility] INR 1.2(H) [facility] Comment: Reference Range 0.9-1.1 Moderate-intensity Warfarin Therapy 2.0-3.0 Higher-intensity Warfarin Therapy 3.0-4.0 PT 13.2(H) 9.0 - 11.5 sec [facility] Comment: For additional information, please refer to http://education.Destineer/faq/DJI209 (This link is being provided for informational/ educational purposes only.) Test Performed at: [facility] [address] GISSEL OLIVER MD 06/22/2025 11:3 1 AM CDT 06/22/2025 11:32 AM CDT us Salomon Sapp MD LAB - COAGULATION ORDERABLES F inal Result [facility] [address] [place] [address] * (ABNORMAL) CBC W AUTO DIFFERENTIAL (06/22/2025 11:31 AM CDT) Only the most recent of4 resultswithin the time period is included. White Blood Cell Count 2.4(L) 3.8 - 10.8 Thousand/ uL [facility] RBC 4.02 3.80 - 5.10 Million/u L [facility] Hemoglobin 12.2 11.7 - 15.5 g/dL [facility] Hematocrit 37.9 35.0 - 45.0 % [facility] MCV 94.3 80.0 - 100.0 fL [facility] MCH 30.3 27.0 - 33.0 pg [facility] MCHC 32.2 32.0 - 36.0 g/dL [facility] Comment: For adults, a slight decrease in the calculated MCHC value (in the range of 30 to 32 g/dL) is most likely not clinically significant; however, it should be interpreted with caution in correlation with other red cell parameters and the patient's clinical condition. RDW 13.7 11.0 - 15.0 % [facility] Platelet Count 51(L) 140 - 400 Thousand/ uL [facility] Comment: Verified by repeat analysis. MPV 13.1(H) 7.5 - 12.5 fL [facility] Neutrophil Absolute 1337(L) 1500 - 7800 cells/uL [facility] Absolute Bands [facility] Metamyelocytes Absolute [facility] Myelocytes Absolute [facility] Absolute Prolymphocytes [facility] Lymphocytes Absolute 869 850 - 3900 cells/uL [facility] Absolute Monocytes 132(L) 200 - 950 cells/uL [facility] Eosinophils Absolute 41 15 - 500 cells/uL [facility] Basophils Absolute 22 0 - 200 cells/uL [facility] Absolute Blasts [facility] nRBC Absolute [facility] Granulocytes % 55.7 % [facility] Band Neutrophil [facility] Metamyelocytes [facility] Myelocytes [facility] Promyelocytes [facility] Lymphocytes % 36.2 % [facility] Lymphocyte Reactive [facility] Monocytes % 5.5 % [facility] Eosinophils % 1.7 % [facility] Basophils % 0.9 % [facility] Blasts [facility] nRBC [facility] Comments [facility] Comment: Review of peripheral smear confirms automated results. Review of the peripheral smear reveals decreased numbers of platelets. Test Performed at: [facility] [address] GISSEL OLIVER MD 06/22/2025 11:3 1 AM CDT 06/22/2025 11:32 AM CDT Salomon Sapp MD LAB - HEMATOLOGY ORDERABLES Fi nal Result [address] [address] * (ABNORMAL) COMPREHENSIVE METABOLIC PANEL (06/22/2025 11:31 AM CDT) Only the most recent of6 resultswithin the time period is included. Glucose 126(H) 65 - 99 mg/dL [facility] Comment: Fasting reference interval For someone without known diabetes, a glucose value >125 mg/dL indicates that they may have diabetes and this should be confirmed with a follow-up test. BUN 11 7 - 25 mg/dL [facility] Creatinine 0.87 0.50 - 0.99 mg/dL [facility] eGFR by Cystatin C 83 > OR = 60 mL/min/1. 73m2 [facility] BUN/Creatinine Ratio SEE NOTE: 6 - 22 (calc) [facility] Comment: Not Reported: BUN and Creatinine are within reference range. Sodium 145 135 - 146 mmol/L [facility] Potassium 3.2(L) 3.5 - 5.3 mmol/L [facility] Chloride 111(H) 98 - 110 mmol/L [facility] CO2 23 20 - 32 mmol/L [facility] Calcium 9.3 8.6 - 10.2 mg/dL [facility] Protein Total 6.2 6.1 - 8.1 g/dL [facility] Albumin 4.1 3.6 - 5.1 g/dL [facility] Globulin Total 2.1 1.9 - 3.7 g/dL (calc) [facility] Albumin/Globulin Ratio 2.0 1.0 - 2.5 (calc) [facility] Bilirubin Total 1.0 0.2 - 1.2 mg/dL [facility] Alkaline Phosphatase 60 31 - 125 U/L [facility] AST 24 10 - 35 U/L [facility] ALT 18 6 - 29 U/L [facility] Comment: Test Performed at: [facility] [address] GISSEL OLIVER MD 06/22/2025 11:3 1 AM CDT 06/22/2025 11:32 AM CDT us Salomon Sapp MD LAB - CHEMISTRY ORDERABLES Fin al Result [facility] [address] [place] [address] * (ABNORMAL) GLUCOSE - POINT OF CARE (06/18/2025 12:15 PM CDT) Only the most recent of20 resultswithin the time period is included. Glucose WB/POC 101(H) 70 - 99 mg/dL 06/18/2025 12:17 PM CDT [facility] Specimen Type Arterial/C apillary 06/18/2025 12:17 PM CDT [facility] Blood BLOOD SPECIMEN / Unknown 06/18/2025 12:15 PM CDT 06/18/2025 12:17 PM CDT us Salomon Sapp MD LAB - POINT OF CARE ORDERABLES Final Result Performing Organization Address [facility] Co de Phone Number [facility] [address] [place] [address], [place] [phone] * CULTURE BLOOD (06/18/2025 2:58 AM CDT) Only the most recent of4 resultswithin the time period is included. [facility] Culture No growth day 5 MARYANNE 06/23/2025 8:31 AM CDT [facility] Blood PERIPHERAL BLOOD / Unknown Lab Venipuncture / Unknown 06/18/2025 2:58 AM CDT 06/18/2025 4:22 AM CDT us Salomon Sapp MD LAB - MICROBIOLOGY ORDERABLES Final Result Performing Organization Address City/[facility]/ZIP Co de Phone Number [facility] [address] [place] [address], [place] [phone] * (ABNORMAL) DIFFERENTIAL MANUAL (06/18/2025 2:58 AM CDT) Only the most recent of2 resultswithin the time period is included. Neutrophil % 67 41 - 74 % 06/18/2025 5:41 AM [facility] Lymphocyte % 24 17 - 47 % 06/18/2025 5:41 AM [facility] Monocyte % 3 3 - 11 % 06/18/2025 5:41 AM [facility] Eosinophil % 4 0 - 7 % 06/18/2025 5:41 AM [facility] Basophil % 2 0 - 2 % 06/18/2025 5:41 AM [facility] Neutrophil Absolute 1.27(L) 1.60 - 7.50 x10E9/L 06/18/2025 5:41 AM [facility] Lymphocyte Absolute 0.46(L) 1.00 - 4.40 x10E9/L 06/18/2025 5:41 AM [facility] Monocyte Absolute 0.06(L) 0.15 - 1.00 x10E9/L 06/18/2025 5:41 AM [facility] Eosinophil Absolute 0.08 0.00 - 0.60 x10E9/L 06/18/2025 5:41 AM [facility] Basophil Absolute 0.04 0.00 - 0.13 x10E9/L 06/18/2025 5:41 AM [facility] RBC Morphology REVIEWED 06/18/2025 5:41 AM [facility] Adalid Cells MODERATE(A) (none) 06/18/2025 5:41 AM [facility] Schistocytes FEW(A) (none) 06/18/2025 5:41 AM [facility] Blood BLOOD SPECIMEN / Unknown Lab Venipuncture / Unknown 06/18/2025 2:58 AM CDT 06/18/2025 4:24 AM CDT Salomon Sapp MD LAB - HEMATOLOGY ORDERABLES Fi nal Result [facility] [address] [place] [address], [facility] [phone] * PHOSPHORUS BLOOD (06/18/2025 2:58 AM CDT) Only the most recent of4 resultswithin the time period is included. Phosphorus 3.1 2.9 - 5.1 mg/dL 06/18/2025 5:06 AM CDT [facility] Blood BLOOD SPECIMEN / Unknown Lab Venipuncture / Unknown 06/18/2025 2:58 AM CDT 06/18/2025 4:33 AM CDT Mukul Dubon MD LAB - CHEMISTRY ORDERABLES Fin al Result Performing Organization Address City/[facility]/ZIP Co de Phone Number [address] [address], [facility] [phone] * MAGNESIUM BLOOD (06/18/2025 2:58 AM CDT) Only the most recent of4 resultswithin the time period is included. Magnesium 1.9 1.6 - 2.6 mg/dL 06/18/2025 5:06 AM CDT [facility] Blood BLOOD SPECIMEN / Unknown Lab Venipuncture / Unknown 06/18/2025 2:58 AM CDT 06/18/2025 4:33 AM CDT Mukul Dubon MD LAB - CHEMISTRY ORDERABLES Fin al Result Performing Organization Address City/[facility] Co de Phone Number [address] [address], [facility] [phone] * (ABNORMAL) URINALYSIS REFLEX MICROSCOPIC REFLEX CULTURE (06/17/2025 10:00 AM CDT) Only the most recent of2 resultswithin the time period is included. Color UA Yellow Yellow, Straw 06/17/2025 10:57 AM CDT [facility] Clarity UA Clear Clear 06/17/2025 10:57 AM CDT [facility] Glucose UA 3+(A) Normal 06/17/2025 10:57 AM CDT [facility] Bilirubin UA Negative Negative 06/17/2025 10:57 AM CDT [facility] Ketone UA Negative Negative 06/17/2025 10:57 AM [facility] Specific [place] UA 1.015 1.005 - 1.030 06/17/2025 10:57 AM [facility] Blood UA 2+(A) Negative 06/17/2025 10:57 AM [facility] pH UA 5.0 5.0 - 8.0 06/17/2025 10:57 AM [facility] Protein UA Negative Negative 06/17/2025 10:57 AM [facility] Urobilinogen UA Normal Normal mg/dL 06/17/2025 10:57 AM [facility] Nitrite UA Negative Negative 06/17/2025 10:57 AM [facility] Leukocyte Esterase UA Negative Negative 06/17/2025 10:57 AM [facility] RBC UA 11-20(A) 0 - 5 # /hpf 06/17/2025 10:57 AM [facility] WBC UA 6-10(A) 0 - 5 # /hpf 06/17/2025 10:57 AM [facility] Bacteria UA None Seen None Seen 06/17/2025 10:57 AM [facility] Squamous Epithelial Cells 0-2 0 - 5 /hpf 06/17/2025 10:57 AM [facility] Mucus UA 1+ /LPF 06/17/2025 10:57 AM [facility] Reflex Status Culture not indicated 06/17/2025 10:57 AM [facility] Urine URINE SPECIMEN OBTAINED BY CLEAN CATCH PROCEDURE / Unknown Collection / Unknown 06/17/2025 10:00 AM CDT 06/17/2025 10:14 AM [facility] Salomon Sapp MD LAB - URINALYSIS ORDERABLES Fi nal Result [address] [address], [facility] [phone] * BLOOD TYPE VERIFICATION (06/16/2025 3:33 AM CDT) ABO Rh O POS 06/16/2025 4:5 8 AM [facility] Blood Bank BLOOD SPECIMEN / Unknown Lab Venipuncture / Unknown 06/16/2025 3:33 AM CDT 06/16/2025 4:19 AM CDT us Mukul Dubon MD LAB - BLOOD BANK ORDERABLES Fi nal Result [facility] [address] [place] [address], [facility] [phone] * (ABNORMAL) CBC W/O DIFFERENTIAL (06/16/2025 3:33 AM CDT) Only the most recent of3 resultswithin the time period is included. WBC 1.7(L) 4.0 - 10.7 x10E9/L 06/16/2025 4:15 AM [facility] RBC Count 3.31(L) 3.90 - 5.20 x10E12/L 06/16/2025 4:15 AM [facility] Hemoglobin 10.0(L) 11.9 - 15.8 g/dL 06/16/2025 4:15 AM [facility] Hematocrit 29.1(L) 34.8 - 46.1 % 06/16/2025 4:15 AM [facility] MCV 87.9 80.0 - 98.0 fL 06/16/2025 4:15 AM [facility] MCH 30.2 26.7 - 33.6 pg 06/16/2025 4:15 AM [facility] MCHC 34.4 31.7 - 36.3 g/dL 06/16/2025 4:15 AM [facility] RDW-CV 15.3(H) 11.3 - 14.8 % 06/16/2025 4:15 AM [facility] Platelet Count 36(L) 150 - 420 x10E9/L 06/16/2025 4:15 AM [facility] MPV 11.2 7.8 - 11.4 fL 06/16/2025 4:15 AM [facility] Blood BLOOD SPECIMEN / Unknown Lab Venipuncture / Unknown 06/16/2025 3:33 AM CDT 06/16/2025 4:04 AM CDT us Mukul Dubon MD LAB - HEMATOLOGY ORDERABLES Fi nal Result [facility] [address] [place] [address], [facility] [phone] * ETT LINE PERFORMABLE (06/15/2025 4:02 PM CDT) Narrative Ross Maurer CAA - 06/15/2025 4:02 PM CDT Ross Maurer CAA 06/15/2025 4:03 PM Endotracheal Tube Placement: Patient Location: OR. Intubation Event Date/Time: 06/15/2025 3:51 PM Procedure: intubation (71178) Procedure Section: Sedation: under general anesthesia. Indications for Airway Management: anesthesia Procedure pretreatments used? No Induction: standard IV Patient Position: sniffing Blade Type: Bonner Blade Size: 2 Laryngoscopy View: grade 1 (full cords) Tube: endotracheal tube Placement: oral Tube type: cuff - inflated Tube Size (MM): 7 Depth of Insertion (CM): 22 Measured From: lips Cuff volume (mL): 7 Cuff Inflated With: air Number of Attempts: 1. Placement Verified By: direct visualization, bilateral breath sounds, chest auscultation and CO2 monitor CXR Findings: ETT in proper place. Tube secured with: adhesive tape. Dentition unchanged? Yes Difficult Airway? No. Procedure Start Time: 06/15/2025 3:51 PM. Procedure End Time: 06/15/2025 3:52 PM. Procedure Total Time: 1 minutes. Staff Section Anesthesia Provider: Ross Maurer CAA, Performed the procedure Provider #1: Ninfa Cruz MD. us Ninfa Cruz MD GENERAL ANESTHESIA ORDERABLES Fi nal Result * EGD (06/15/2025 2:39 PM CDT) Report Endoscopy POC Endoscopy Department Report _ Patient Name: Beulah Garcia Procedure Date: 06/15/2025 2:39 PM Date of : 1980 Classification: Inpatient Gender: Female Ethnicity: Not or Race: White _ Providers: DO Quan Christensen MD: Procedure: Upper GI endoscopy Indications: Hematemesis Medications: General Anesthesia Description of Procedure: Pre-Anesthesia Assessment: - Prior [...] The patient tolerated the procedure well. Findings: One column of large (> 5 mm) varices with stigmata of recent bleeding were found in the distal esophagus, 33 to 38 cm from the incisors. Red magda signs were present. Scarring from prior treatment was visible. One band was successfully placed with incomplete eradication of varices. There was no bleeding during the procedure. A 2 cm hiatal hernia was present. Severe portal hypertensive gastropathy was found in the stomach. The examined duodenum was normal. Estimated Blood Loss: Estimated blood loss: none. Complications: No immediate complications. Impression: - Large (> 5 mm) esophageal varices with stigmata of recent bleeding; one band targeting the high risk stigmata. Incompletely eradicated. Banded. - Small, 2 cm, hiatal hernia. - Moderately severe and diffuse portal hypertensive gastropathy with areas of spontaneous hemorrhage - Moderate amount of food was present in the stomach, therefore, patient was intubated during the procedure for airway protection. . - Normal examined duodenum. - No specimens collected. Recommendation: - [facility]. - Clear liquid diet today, then advance as tolerated to resume regular diet. - Repeat upper endoscopy in 3 weeks for retreatment. - Observe patient's clinical course. - Check hemoglobin daily. - Continue octreotide for 72h. Procedure Code(s): --- Professional --- 21539, Esophagogastroduo denoscopy, flexible, transoral; with band ligation of esophageal/gastri c varices Diagnosis Code(s): --- Professional --- I85.01, Esophageal varices with bleeding K76.6, Portal hypertension K31.89, Other diseases of stomach and duodenum K92.0, Hematemesis CPT copyright 2021 [employer]. All rights reserved. The codes documented in this report are preliminary and upon study assistant review may be revised to meet current compliance requirements. Susanna Richter DO 06/15/2025 4:07:18 PM This report has been signed electronically. Note Initiated On: 06/15/2025 2:39 PM Number of Addenda: 0 [address] 06/15/2025 2:39 PM CDT us Susanna Richter DO GI PROCEDURE ORDERABLES Edited R esult - Final [facility] * HEMOGLOBIN A1C (06/15/2025 4:56 AM CDT) Hemoglobin A1c 5.0 <=5.6 % 06/15/2025 9:51 AM CDT [facility] Estimated Average Glucose 97 mg/dL 06/15/2025 9:51 AM CDT [facility] Comment: HbA1c Interpretation: Normal : < 5.7% Pre-diabetes: 5.7-6.4% Diabetes: Equal to or greater than 6.5% Test results diagnostic of diabetes should be repeated for confirmation. Treatment target values recommended by ADA and other clinical organizations should be used to evaluate metabolic control in patients. Reference: [place] [employer], Standards of Care in Diabetes -2020 In patients 70 years and older consider HbA1c target range of 7.0-7.5% (Reference: Garcia Contreras et al. JAMDA. 2012) The Sebia assay for the measurement of HbA1c is a National Glycohemoglobin Standardization Program (NGSP) certified method. Blood BLOOD SPECIMEN / Unknown Venipuncture / Unknown 06/15/2025 4:56 AM CDT 06/15/2025 5:02 AM CDT us Mukul Dubon MD LAB - CHEMISTRY ORDERABLES Fin al Result [facility] [address] [place] [address], [facility] [phone] * CULTURE URINE (06/14/2025 8:49 PM CDT) Culture Urine <10,000 CFU/mL urogenital john MARYANNE 06/16/2025 2:56 PM CDT [facility] Urine URINE SPECIMEN OBTAINED BY CLEAN CATCH PROCEDURE / Unknown Collection / Unknown 06/14/2025 8:49 PM CDT 06/14/2025 9:22 PM CDT us Mukul Dubon MD LAB - MICROBIOLOGY ORDERABLES Final Result [facility] [address] [place] [address], [facility] [phone] * CT Angio Abdomen Pelvis (06/14/2025 8:45 PM CDT) Anatomical Region Laterality Modality Abdomen, Pelvis Computed Tomogra phy 06/14/2025 8:50 PM CDT Impressions 06/14/2025 10:00 PM CDT Impression: 1.Some mucosal enhancement in the distal esophagus on the venous phase likely representing paraesophageal varices. Active bleeding from paraesophageal varices is difficult to completely exclude but is felt to be unlikely. 2.Examination is limited due to presence of contrast within the colonic lumen. Within the limitations, no arterial extravasation of contrast is identified within the gastrointestinal system. 3.Hepatic cirrhosis with sequelae of portal hypertension including splenomegaly measuring 17 cm transaxially, dilated portal vein, small volume ascites scattered throughout the abdomen and pelvis, and portal colopathy. 4.Enhancement of the right ureter and renal pelvis representing ureteritis and pyelitis. There is a nonobstructing renal calculus measuring 8 mm within the upper pole of the right kidney with dilatation of several calyces in the upper pole of the right kidney. These findings were discussed with the patient's care provider, Dr Parra by Dr. Derrick Potter via telephone at 06/14/2025 8:56 PM with readback comprehension and verification. > Dictated by Derrick Potter DO, (radiology equipment servicer). > Dictated by Coat Maker IMaribel MD have personally reviewed and interpreted this examination/study. > Interpreting Provider: Maribel Connors MD on 06/14/2025 10:00 PM Narrative 06/14/2025 10:00 PM CDT PROCEDURE: CT ANGIO ABDOMEN PELVIS, DATE/TIME OF EXAM: 06/14/2025 8:46 PM, LOCATION [facility] INDICATION: K92.0: Hematemesis with nausea Ordering Provider Reason For Exam: bleed CONTRAST: IOPAMIDOL 76 % IV SOLN:100 mL COMPARISON: CTA of the abdomen and pelvis from 10/09/2024 TECHNIQUE: CT of the abdomen and pelvis was performed prior to and following the uneventful administration of 100 mL of Isovue 370 intravenous contrast according to a gastrointestinal hemorrhage angiographic protocol. Findings: Vascular findings: No evidence of arterial extravasation of contrast within the gastrointestinal system. There is mild atherosclerosis of the infrarenal abdominal aorta and bilateral common and right internal iliac artery. The celiac axis is patent and without atherosclerotic disease. There is mild atherosclerotic calcifications of the superior mesenteric artery with mild narrowing. The bilateral renal arteries are patent. The inferior mesenteric artery is patent. There is some mucosal enhancement of the distal esophagus on the venous phase representing paraesophageal varices, active hemorrhage is difficult to exclude. The main portal vein is patent and measures 1.8 cm in diameter. Lower Chest: Normal. Liver: The liver has a nodular surface, consistent with hepatic cirrhosis. Simple appearing cysts of the liver are noted measuring up to 1.4 cm. The portal vein is patent. Gallbladder and Bile Ducts: The gallbladder is absent. Fluid containing structure is noted in the gallbladder fossa, may represent dilated cystic duct or gallbladder remnant (image 48, series 11). Spleen: The spleen is enlarged.. Pancreas: Normal. Adrenals: Normal. Kidneys, Ureters & Bladder: Enhancement of the right ureter extending to the renal pelvis. 8 mm obstructing calculus in the upper pole of the right kidney with dilatation of renal calyces in the upper pole of the right kidney. A smaller calculus is noted in the lower pole of the right kidney. There is a simple cyst at the lower pole of the left kidney. Gastrointestinal: Dense material is present in the gastric body (image 54, series 5) on the precontrast images likely representing ingested material. Presence of intraluminal contrast in the proximal colon decreases sensitivity for detecting active gastrointestinal bleeding. Within the limitations, no evidence of active bleeding into the gastrointestinal lumen on this examination Mild bowel wall thickening of the ascending and transverse colon most likely representing portal hypertensive colopathy. Normal appendix. Mesentery/Peritoneum/Retroperitoneum: Small volume ascites. No pneumoperitoneum. Reproductive Organs: The uterus is absent. Bones: Bone windows demonstrate no suspicious lytic or blastic lesions. The visible osseous structures are intact. Soft tissues: Normal. Procedure Note Sana Connors MD - 06/14/2025 PROCEDURE: CT ANGIO ABDOMEN PELVIS, DATE/TIME OF EXAM: 06/14/2025 8:46PM, LOCATION [facility] INDICATION: K92.0: Hematemesis with nausea Ordering Provider Reason For Exam: bleed CONTRAST: IOPAMIDOL 76 % IV SOLN:100 mL COMPARISON: CTA of the abdomen and pelvis from 10/09/2024 TECHNIQUE: CT of the abdomen and pelvis was performed prior to and following the uneventful administration of 100 mL of Isovue 370intravenous contrast according to a gastrointestinal hemorrhage angiographic protocol. Findings: Vascular findings: No evidence of arterial extravasation of contrastwithin the gastrointestinal system. There is mild atherosclerosis of the infrarenal abdominal aorta and bilateral common and right internal iliac artery. The celiac axis is patent and without atherosclerotic disease. There is mild atherosclerotic calcifications of the superior mesenteric artery with mild narrowing. The bilateral renal arteries are patent. The inferior mesenteric artery is patent. There is some mucosal enhancement of the distal esophagus on the venous phase representing paraesophageal varices, active hemorrhage isdifficult to exclude. The main portal vein is patent and measures 1.8 cm indiameter. Lower Chest: Normal. Liver: The liver has a nodular surface, consistent with hepaticcirrhosis. Simple appearing cysts of the liver are noted measuring up to 1.4 cm.The portal vein is patent. Gallbladder and Bile Ducts: The gallbladder is absent. Fluid containing structure is noted in the gallbladder fossa, may represent dilatedcystic duct or gallbladder remnant (image 48, series 11). Spleen: The spleen is enlarged.. Pancreas: Normal. Adrenals: Normal. Kidneys, Ureters & Bladder: Enhancement of the right ureter extending to the renal pelvis. 8 mm obstructing calculus in the upper pole of theright kidney with dilatation of renal calyces in the upper pole of the right kidney. A smaller calculus is noted in the lower pole of the rightkidney. There is a simple cyst at the lower pole of the left kidney. Gastrointestinal: Dense material is present in the gastric body (image54, series 5) on the precontrast images likely representing ingestedmaterial. Presence of intraluminal contrast in the proximal colon decreases sensitivity for detecting active gastrointestinal bleeding. Within the limitations, no evidence of active bleeding into the gastrointestinallumen on this examination Mild bowel wall thickening of the ascending and transverse colon most likely representing portal hypertensive colopathy. Normal appendix. Mesentery/Peritoneum/Retroperitoneum: Small volume ascites. No pneumoperitoneum. Reproductive Organs: The uterus is absent. Bones: Bone windows demonstrate no suspicious lytic or blastic lesions.The visible osseous structures are intact. Soft tissues: Normal. Impression: 1.Some mucosal enhancement in the distal esophagus on the venous phase likely representing paraesophageal varices. Active bleeding from paraesophageal varices is difficult to completely exclude but is felt pierre unlikely. 2.Examination is limited due to presence of contrast within the colonic lumen. Within the limitations, no arterial extravasation of contrast is identified within the gastrointestinal system. 3.Hepatic cirrhosis with sequelae of portal hypertension including splenomegaly measuring 17 cm transaxially, dilated portal vein, small volume ascites scattered throughout the abdomen and pelvis, and portal colopathy. 4.Enhancement of the right ureter and renal pelvis representingureteritis and pyelitis. There is a nonobstructing renal calculus measuring 8 mm within the upper pole of the right kidney with dilatation of several calyces in the upper pole of the right kidney. These findings were discussed with the patient's care provider, Tayo by Dr. Derrick Potter via telephone at 06/14/2025 8:56 PM with readback comprehension and verification. > Dictated by Derrick Potter DO, (radiology equipment servicer). > Dictated by Coat Maker IMaribel MD have personally reviewed and interpreted this examination/study. > Interpreting Provider: Maribel Connors MD on 06/14/2025 10:00 PM Mukul Dubon MD CT ORDERABLES Final Result * TYPE + SCREEN PANEL (06/14/2025 8:44 PM CDT) Antibody Screen NEG 9:46 PM CDT [facility] ABO Rh O POS 06/14/2025 9:46 PM CDT [facility] Blood Bank BLOOD SPECIMEN / Unknown Venipuncture / Unknown 06/14/2025 8:44 PM CDT 06/14/2025 9:00 PM CDT Mukul Dubon MD LAB - BLOOD BANK ORDERABLES Fi nal Result [facility] [address] [place] [address], [facility] [phone] * (ABNORMAL) PTT (06/14/2025 8:44 PM CDT) APTT 46.3(H) 23.0 - 38.4 Seconds 06/14/2025 9:21 PM CDT [facility] Comment:Suggested therapeuti c range for full dose I.V. unfractionated heparin therapy for venous thromboembolism is 71 to 109 seconds. Blood BLOOD SPECIMEN / Unknown Venipuncture / Unknown 06/14/2025 8:44 PM CDT 06/14/2025 8:58 PM CDT Mukul Dubon MD LAB - COAGULATION ORDERABLES F inal Result Performing Organization Address City/[facility]/ZIP Co de Phone Number [address] [address], [facility] [phone] * ALCOHOL ETHYL BLOOD (06/14/2025 8:30 PM CDT) Ethanol (mg/dL) <10 <10 mg/dL 9:12 PM CDT [facility] Ethanol Calculated (g/dL) <0.010 <=0.010 g/dL 06/14/2025 9:12 PM CDT [facility] Blood BLOOD SPECIMEN / Unknown Venipuncture / Unknown 06/14/2025 8:30 PM CDT 06/14/2025 8:44 PM CDT Narrative [facility] - 06/14/2025 9:12 PM CDT Ethanol Interp <10: None Detected. Depression of RESPITE COORDINATOR: >100 mg/dl Potentially Critical: >250 mg/dl Potentially Fatal >400 mg/dl Ethanol in the patient's blood will contribute to the osmolar gap. Ethanol's contribution to the osmolar gap can be estimated by dividing the concentration of ethanol in mg/dL by 4.6. This test is for clinical use only and does not equal a DARLENE for legal purposes. Mukul Dubon MD LAB - CHEMISTRY ORDERABLES Fin al Result Performing Organization Address City/[facility]/ZIP Co de Phone Number [address] [address], [facility] [phone] * LIPASE BLOOD (06/14/2025 1:42 PM CDT) Lipase 22 8 - 78 U/L 06/14/2025 2:27 PM CDT [facility] Blood BLOOD SPECIMEN / Unknown Venipuncture / Unknown 06/14/2025 1:42 PM CDT 06/14/2025 1:57 PM CDT Narrative [facility] - 06/14/2025 2:27 PM CDT Lipase results from the [employer] Alinity analyzer may not be comparable with other methodologies. us Jaycee Walker PA-C LAB - CHEMISTRY ORDERABLES Fi nal Result [facility] [address] [place] [address], [facility] [phone] * EGD (05/03/2025 11:12 AM CDT) Report [...] entire procedure. Procedure Code(s): --- Professional --- 47397, Esophagogastroduo denoscopy, flexible, transoral; with band ligation of esophageal/gastri c varices Diagnosis Code(s): --- Professional --- K22.89, Other specified disease of esophagus R13.10, Dysphagia, unspecified I85.01, Esophageal varices with bleeding CPT copyright 2021 [employer]. All rights reserved. The codes documented in this report are preliminary and upon study assistant review may be revised to meet current compliance requirements. _ Salomon S Befeler, MD 05/03/2025 11:45:42 AM This report has been signed electronically. Note Initiated On: 05/03/2025 11:12 AM Number of Addenda: [address] [phone] [facility] 05/03/2025 11:1 2 AM CDT us Salomon Sapp MD GI PROCEDURE ORDERABLES Edited Result - Final [facility] * ENDOSCOPY, COLON, DIAGNOSTIC (08/27/2022 12:28 PM BIOLOGICAL SCIENCES INSTRUCTOR) Report Endoscopy POC Endoscopy Department Report _ [...] entire procedure. Procedure Code(s): --- Professional --- 44144, Colonoscopy, flexible; with removal of tumor(s), polyp(s), or other lesion(s) by snare technique Diagnosis Code(s): --- Professional --- K63.5, Polyp of colon K64.4, Residual hemorrhoidal skin tags R10.84, Generalized abdominal pain K92.1, Melena (includes Hematochezia) CPT copyright 2019 [employer]. All rights reserved. The codes documented in this report are preliminary and upon study assistant review may be revised to meet current compliance requirements. Salomon Sapp MD 08/27/2022 1:27:31 PM This report has been signed electronically. Note Initiated On: 08/27/2022 12:28 PM Number of Addenda: [phone] [place] [address] 08/27/2022 12:2 8 PM BIOLOGICAL SCIENCES INSTRUCTOR Salomon Sapp MD GI PROCEDURE ORDERABLES Edited Result - Final Performing Organization Address [facility]/ZIP Co de Phone Number [facility] * HEPATITIS C ANTIBODY (11/14/2017 10:15 AM BIOLOGICAL SCIENCES INSTRUCTOR) Hepatitis C Antibody Non-react [facility] Comment: Hepatitis C Antibody screen indicates no serologic evidence of past or current infection with Hepatitis C Virus. Patients with unexplained liver disease who are immunocompromised or suspected of having acute Hepatitis C infection may benefit from Nucleic Acid Test ([facility]MAN) for Hepatitis C Viral RNA to confirm Hepatitis C status. Blood specimen (specimen) BLOOD SPECIMEN / Unknown 11/14/2017 10:15 AM BIOLOGICAL SCIENCES INSTRUCTOR 11/14/2017 11:03 AM BIOLOGICAL SCIENCES INSTRUCTOR Verito Mcclendon MD LAB - CHEMISTRY ORDERABLES Final Result [address] [phone] from Last 3 Months or Most Recently Relevant to Health Maintenance Insurance [facility] SELF PAY NO INSURANCE Member Subscriber Plan / Payer (Ef fective for All Dates) Name:Beulah Garcia Member ID:Not on file Relation to Subscriber:Not on file Name:BEULAH GARCIA Subscriber ID:Not on file (Home) Address: [address] [place] [address] Payer ID:Not on file Group ID:Not on file Type:Self Pay Address: [place], [place] Advance Directives * Full Code (Latest Code Status on File) Date Activated Date Inactivated Comments 06/14/2025 10:12 PM 06/18/2025 2:59 PM * Full Code Date Activated Date Inactivated Comments 10/07/2024 6:10 PM 10/11/2024 5:22 PM Care Teams Naval Science Teacher Relationship Specialty Start Date End Date Sabine Parker APRN-STACKER ATTENDANT [address] [place] [address] PCP - General Nurse Practitioner Family 05/07/25 Sadia Morris [address] [facility] [address] [place] [address] 09/13/24
--- OUTSIDE RECORDS SUMMARY | 2025-07-20 14:07 | XMS_ITS | Encounter Summary ---
Author Organization [facility] Address [address] [facility] [place] [address] Care Team Providers Care Theatre Professor Name Role Phone Sadia Morris Primary Care Provider [phone] Sadia Morris Primary Care Provider [phone] Sadia Morris Unavailable Sabine Parker ASSEMBLER SANDAL PARTS-OPERATIONS ENGINEER Primary Care Provider Reason for Visit * Reason Onset Date Comments MEDICATION REFILL 01/21/2024 Encounter Details Date Type Department Care Team (Late st Contact Info) Description 01/21/2024 Refill [facility] - GI [address] [place] [address], [place] [phone] Salomon Sapp MD [address] [place] [address] [place] [address] MEDICATION REFILL Social History Tobacco Use Types [...] PM CDT Legal Sex Female 5:23 PM VISUAL LEAD Gender Identity Female 04/21/2024 2:38 PM CDT [...] Description 08/09/2025 10:30 AM CDT Hospital Encounter [facility] [address] [place] [address] Salomon Sapp MD [address] [place] [address] [address] [place] [address] Surgery General 08/09/2025 10:30 AM CDT - 08/09/2025 11:00 AM CDT Surgery [facility] [address] [place] [address] [place] [address] [place] [address] [address] [place] [address] EGD--w/ Sekou 09/24/2025 9:30 AM VISUAL LEAD Appointment [facility] [address] [place] [phone] Salomon Sapp MD [address] [place] [address] [address] [place] [address] 11/26/2025 10:00 AM VISUAL LEAD Office Visit [facility] - GI [address] [place] [address], [place] [phone] Salomon Sapp MD [address] [place] [address] [address] [place] [address] Scheduled Procedures Name Priority Associated Diagnoses Date/Ti [...] on filedocumented in this encounter Care Teams Theatre Professor Relationship Specialty Start Date End Date Sadia Morris [address] [place] [address] [place] [address] PCP - General 09/24/23 09/12/24 Sadia Morris [address] [place] [address] [place] [address] PCP - General 09/13/24 05/06/25 Sabine Parker, GUS-OPERATIONS ENGINEER [address] [place] [address] PCP - General Nurse Practitioner Family 05/07/25 Sadia Morris [facility] [address] [place], [place] [address] 09/13/24 documented as of this encounter
--- OUTSIDE RECORDS SUMMARY | 2025-07-20 14:07 | XMS_ITS | Encounter Summary ---
Author Organization [facility] Address [address] [place] [address] Care Team Providers Care Cephalometric Analyst Name Role Phone Natacha Hoyt MD Primary Care Provider Encounter Details Date Type Department Care Team (Late st Contact Info) Description 12/03/2021 MyChart Message Enc [facility] Multispecialty Care - Health system [address] [facility], [address] [place] [address] Fransico Hunter MD [address] [place] [address] [place] [address] Bun Social History Tobacco Use Types Packs/Day Years Used Date Smoking Tobacco: Former Cigarettes 1 13 1 - 2006 Smokeless Tobacco: Never Alcohol Use Standard Drinks/Week Comments No 0 (1 standard drink = 0.6 oz pur e alcohol) PHQ-2 Answer Date Recorded PHQ-2 Score - If the patient scores above 3, please move on to questions 3-9 0 08/30/2021 Comments No Sex and Gender Information Value Date Recorded Sex Assigned at Not on file Legal Sex Female 5:08 PM CDT Gender Identity Female 12/01/2021 10:08 AM CW OPERATOR Sexual Orientation Straight 12/01/2021 10 :08 AM CW OPERATOR COVID-19 Exposure Response Date Recorded In the last 10 days, have ricco anglin been in contact with someone who was confirmed or suspected to have Coronavirus/COVID-19? No / Unsure 12/01/2021 9:21 AM CW OPERATOR documented as of this encounter Functional Status * RETIRED Are you deaf or do you have serious difficulty hearing Answer Date of Assessment Author Status No 07/18/2021 5:06 PM CDT Activ e * RETIRED Are you blind or do you have serious difficulty seeing, even when wearing glasses? Answer Date of Assessment Author Status No 07/18/2021 5:06 PM CDT Activ e * Do you have serious difficulty walking or climbing stairs? Answer Date of Assessment Author Status No 07/18/2021 5:06 PM CDT Jing Plunkett RN Active * Do you have difficulty dressing or bathing? Answer Date of Assessment Author Status No 07/18/2021 5:06 PM CDT Jing Plunkett RN Active * Because of a physical, mental, or emotional condition, do you have difficulty doing errands alone such as visiting a doctor's office or shopping? Answer Date of Assessment Author Status No 07/18/2021 5:06 PM CDT Jing Plunkett RN Active documented as of this encounter Mental Status * Because of a physical, mental, or emotional condition, do you have serious difficulty concentrating, remembering, or making decisions? Answer Entry Date Author Status No 07/18/2021 5:06 PM Jing Alvarez RN Active documented in this encounter Plan of Treatment Not on file documented as of this encounter Goals Goal Patient Goal Type Associated Problems Recent Progress Patient-Stated? Author Safety Patient/family will have appropriate support at home upon discharge General No Randa Swanson RN Patient will return to prior living situation and remain independent in ADLs upon discharge from hospital General No Shani Qiu RN documented as of this encounter Visit Diagnoses Not on filedocumented in this encounter Additional Health Concerns Assessment Noted Time PHQ-9 Depression Total Score: 0 08/30/20 21 11:05 AM CW OPERATOR documented as of this encounter Care Teams Cephalometric Analyst Relationship Specialty Start Date End Date Natacha Hoyt MD [address] [place] [address] PCP - General FAMILY PRACTICE 06/11/21 documented as of this encounter
--- OUTSIDE RECORDS SUMMARY | 2025-07-20 14:07 | XMS_ITS | Encounter Summary ---
Author Organization [facility] Address [address] [place] [address] Care Team Providers Care Pipefitter Name Role Phone Natacha Hoyt MD Primary Care Provider Encounter Details Date Type Department Care Team (Late st Contact Info) Description 08/09/2021 Prep for Procedure [facility] Pre-Admission Testing [address] [place], [place] [id number] Fransico Hunter MD [address] [place] [address] [place] [address] Social History Tobacco Use Types Packs/Day Years Used Date Smoking Tobacco: Former Cigarettes 1 13 1 99 - 2006 Smokeless Tobacco: Never Alcohol Use Standard Drinks/Week Comments No 0 (1 standard drink = 0.6 oz pur e alcohol) PHQ-2 Answer Date Recorded PHQ-2 Score - If the patient scores above 3, please move on to questions 3-9 0 08/07/2021 Comments No Sex and Gender Information Value Date Recorded Sex Assigned at Not on file Legal Sex Female 5:08 PM CDT Gender Identity Female 12/01/2021 10:08 AM NETWORK PROJECT MANAGER Sexual Orientation Straight 12/01/2021 10 :08 AM NETWORK PROJECT MANAGER COVID-19 Exposure Response Date Recorded In the last month, have you been in contact with someone who was confirmed or suspected to have Coronavirus / COVID-19? No / Unsure 08/07/2021 9:28 AM CDT documented as of this encounter Functional [...] Date Author Status No 07/18/2021 5:06 PM CDT Jing Plunkett RN Active documented in this encounter Plan [...] as of this encounter Visit Diagnoses Diagnosis Preop examination- Primary Preoperative examination, unspecified documented in this encounter Additional Health Concerns Infection Onset Date Last Indicated Resolved Time COVID-19 Rule Out 08/14/2021 08/14/2021 08/14/2021 1:37 PM CDT Assessment Noted Time PHQ-9 Depression Total Score: 0 08/07/20 21 10:23 AM CDT documented as of this encounter Care Teams Pipefitter Relationship Specialty Start Date End Date Natacha Hoyt MD [address] [place] [address] PCP - General FAMILY PRACTICE 06/11/21 documented as of this encounter
--- OUTSIDE RECORDS SUMMARY | 2025-07-20 14:07 | XMS_ITS | Encounter Summary ---
Author Organization [facility] Address [address] [place] [address] Care Team Providers Care Human Resources Partner Name Role Phone Roxana Martins NP Primary Care Provider [phone] Natacha Hoyt MD Primary Care Provider Encounter Details Date Type Department Care Team (Late st Contact Info) Description 06/08/2021 Hospital Follow-up Call [facility] [place] [address] Rosi Aguilera, RN Social History Tobacco Use Types Packs/Day Years Used Date Smoking Tobacco: Former Cigarettes 1 13 - 2006 Smokeless Tobacco: Never Alcohol Use Standard Drinks/Week Comments No 0 (1 standard drink = 0.6 oz pur e alcohol) Comments No Sex and Gender Information Value Date Recorded Sex Assigned at Not on file Legal Sex Female 5:08 PM CDT Gender Identity Female 12/01/2021 10:08 AM BACKWINDER Sexual Orientation Straight 12/01/2021 10 :08 AM BACKWINDER COVID-19 Exposure Response Date Recorded In the last month, have you been in contact with someone who was confirmed or suspected to have Coronavirus / COVID-19? No / Unsure 06/11/2021 8:47 PM CDT documented as of this encounter Functional Status * RETIRED Are you deaf or do you have serious difficulty hearing Answer Date of Assessment Author Status No 06/02/2021 7:28 AM CDT Activ e * RETIRED Are you blind or do you have serious difficulty seeing, even when wearing glasses? Answer Date of Assessment Author Status No 06/02/2021 7:28 AM CDT Activ e * Do you have serious difficulty walking or climbing stairs? Answer Date of Assessment Author Status No 06/02/2021 7:28 AM CDT Teresa Chiang RN Active * Do you have difficulty dressing or bathing? Answer Date of Assessment Author Status No 06/02/2021 7:28 AM CDT Teresa Chiang RN Active * Because of a physical, mental, or emotional condition, do you have difficulty doing errands alone such as visiting a doctor's office or shopping? Answer Date of Assessment Author Status No 06/02/2021 7:28 AM CDT Teresa Chiang RN Active * Calculated C-SSRS Risk Score (Lifetime/Recent) Answer Date of Assessment Author Status No Risk Indicated 06/11/2021 8:52 PM CDT Ronen Calabrese RN Active * [place] Suicide Severity Rating Scale (Screener/Recent Self-Report) Question Answer Date of Assessment Author Status 1. Wish to be (Past 1 Month) No 06/11/2021 8:52 PM Mukund Soni RN A ctive 2. Non-Specific Active Suicidal Thoughts (Past 1 Month) No 06/11/2021 8:52 PM Mukund Soni RN A ctive 6. Suicidal Behavior (Lifetime) No 06/11/2021 8:52 PM Mukund Soni RN A ctive documented as of this encounter Mental Status * Because of a physical, mental, or emotional condition, do you have serious difficulty concentrating, remembering, or making decisions? Answer Entry Date Author Status No 06/02/2021 7:28 AM Teresa Bone RN Active documented in this encounter Plan of Treatment Not on file documented as of this encounter Goals Goal Patient Goal Type Associated Problems Recent Progress Patient-Stated? Author Safety Patient/family will have appropriate support at home upon discharge General No Randa Swanson RN documented as of this encounter Visit Diagnoses Not on filedocumented in this encounter Additional Health Concerns Infection Onset Date Last Indicated Resolved Time COVID-19 Rule Out 06/11/2021 06/11/2021 06/11/2021 10:15 PM CDT COVID-19 Rule Out 06/25/2021 06/25/2021 06/26/2021 1:43 AM CDT COVID-19 Rule Out 07/18/2021 07/18/2021 07/18/2021 10:38 AM CDT COVID-19 Rule Out 08/14/2021 08/14/2021 08/14/2021 1:37 PM CDT documented as of this encounter Care Teams Human Resources Partner Relationship Specialty Start Date End Date Roxana Martins NP PCP - General NURSE PRACTITIONER 12/05/20 06/10/21 Natacha Hoyt MD [address] [place] [address] PCP - General FAMILY PRACTICE 06/11/21 documented as of this encounter
--- OUTSIDE RECORDS SUMMARY | 2025-07-20 14:07 | XMS_ITS | Patient Health Record ---
Author Organization [facility] Address [address] [place] [address] Care Team Providers Care Instructor Psychiatric Aide Name Role Phone Allie Lopez Primary Care Provider Allergies Allergen (clinical drug ingredient) Drug/Non Drug Allergy documented on EMR Reaction Allergy Type Onset Date Status Roberts Oil sunflower oil (uncoded) rash Allergy Active Reason For Referral No Information Medications Medication SIG (Take, Route, Frequency, Duration) Notes Start Date End Date Status Nicotine Polacrilex 2 MG as directed Mouth/Throat every 4 hours; Duration: 3 days As needed please dispense whatever quantity/amount insurance will cover 02/23/2025 Active Doxepin HCl 25 MG 1 capsule at bedtime Orally Once a day; Duration: 90 days As needed Active Nicotine Step 1 21 MG/24HR 1 patch to skin Transdermal Once a day; Duration: 30 days 02/23/2025 Active Cariprazine HCl 6 MG 1 capsule Orally Once a day; Duration: 90 days Active Doxepin HCl 10 MG 1 capsule at bedtime Orally Once a day; Duration: 30 day(s) 07/29/2024 Active Prazosin HCl 2 MG 1 capsule at bedtime Orally Once a day; Duration: 90 days Active hydrOXYzine HCl 25 MG 1 tablet as needed Orally three times a day; Duration: 90 days Active Carvedilol HTN Active DULoxetine HCl 30 MG 1 capsule Orally twice a day; Duration: 90 days Active Excedrin Extra Strength migraine PRN Active Jardiance Active Propranolol HCl 10 MG 1 tablet Orally Once a day Migraine Not-Taking busPIRone HCl 15 MG 1 tablet Orally Twice a day; Duration: 90 days Active Cyclobenzaprine HCl Active Pantoprazole Sodium Active HumaLOG KwikPen 100 UNIT/ML as directed Subcutaneous 65 units BID Active Folic Acid Active Vitamin D 25 MCG (1000 UT) 1 tablet Orally Once a day Not-Taking Dexlansoprazole 60 MG 1 capsule Orally Once a day GERD Active Mounjaro Active Atorvastatin Calcium 80 MG 1 tablet Orally Once a day Hyperlipidemia Active Lisinopril 2.5 MG 1 tablet Orally Once a day HTN Active Topiramate ER 200 MG 1 capsule Orally Once a day Migraine Active Social History Tobacco Use: Social History [...] Status Risk Notes Problem Generalized anxiety disorder (58241681) Generalized anxiety disorder (F41.1) Active confirmed Problem Bipolar 1 disorder (029271034) Bipolar 1 disorder (F31.9) Active confirmed Problem Tobacco user (011936293) Nicotine addiction (F17.200) Active confirmed Encounters Encounter Location Date Provider Diagnosis [address] [address] 08/18/2024 Allie John Bipolar 1 disorder F31.9 and Nicotine addiction F17.[address] [address] 09/29/2024 Allie John Bipolar 1 disorder F31.9 and Nicotine addiction F17.[address] [address] 12/01/2024 Allie John Bipolar 1 disorder F31.[address] [address] 02/23/2025 Allie Camden Bipolar 1 disorder F31.9 and Nicotine addiction F17.[address] [address] 06/03/2025 Allie Camden Bipolar 1 disorder F31.9 and Nicotine addiction F17.200 [place] [address] [place] [address] 07/28/2024 Allie John [facility] [address] [place] [address] 10/12/2024 Allie Lopez [facility] [address] [place] [address] 05/11/2025 Allie Lopez Bipolar 1 disorder F31.9 Assessments Encounter Date Diagnosis (ICD Code) Assessment Notes Treatment Notes Treatment Clinical Notes Section Notes 08/18/2024 Bipolar 1 disorder (ICD-10 - F31.9) 08/18/2024 Nicotine addiction (ICD-10 - F17.200) 09/29/2024 Bipolar 1 disorder (ICD-10 - F31.9) 12/01/2024 Bipolar 1 disorder (ICD-10 - F31.9) 02/23/2025 Bipolar 1 disorder (ICD-10 - F31.9) 05/11/2025 Bipolar 1 disorder (ICD-10 - F31.9) 06/03/2025 Bipolar 1 disorder (ICD-10 - F31.9) 06/03/2025 Nicotine addiction (ICD-10 - F17.200) 02/23/2025 Nicotine addiction (ICD-10 - F17.200) 09/29/2024 Nicotine addiction (ICD-10 - F17.200) 12/01/2024 Other SGA SE- Discussed risks, benefits [...] in mood or behavior. Confirmed knowledge of [facility] hotline [phone] for clients 20 and under and [place] Crisis line [phone] and awareness of 688. SSRI Discussed possible side effects: GI upset, headache, decreased libido/anorgasmia, weight gain, signs of serotonin syndrome and risk of activation to suicidality Plan Of Treatment No Information Insurance Providers Payer Name Payer Address Payer Phone Subscriber Number Group Number Insured Name Patient Relationship to Insured Coverage Start Date Coverage End Date [facility] Attn Claims Department [address] [place] [address] [phone] [id number] Beulah Fung Self - patient is the insured 3 [facility] Attn Claims Department [address] [place] [address] [phone] [id number] Beulah Fung Self - patient is the insured 3 Medical (General) History Medical History History ICD Code type II diabetes hypertension nephrolithiasis LOVE migraine headache Surgical History Surgery Date(Month/Year) hysterectomy due to fibroids 2017 cholecystectomy carpal/cubital tunnel Hospitalization History Reason Date(Month/Year) suicide attempt by self harm and attempt ed overdose 10/02
--- OUTSIDE RECORDS SUMMARY | 2025-07-20 14:07 | XMS_ITS | Encounter Summary ---
Author Organization [facility] Address [address] [facility] [place] [address] Care Team Providers Care Translator And Interpreter Name Role Phone Sadia Morris Unavailable Sabine Parker BRANCH OFFICE MANAGER-RESEARCH PHARMACIST Primary Care Provider Encounter Details Date Type Department Care Team (Late st Contact Info) Description 06/24/2025 Results Follow-Up [facility] 7S ACUTE [address] [place] [phone] Salomon Sapp MD [address] [place] [address] Social History Tobacco Use Types Packs/Day Years Used Date Smoking Tobacco: Former Cigarettes Q uit: 2007 Smokeless Tobacco: Never Alcohol Use Standard Drinks/Week [...] and heating? Not hard at all 06/15/2025 [facility] [place] [facility] Occupat ional [facility] - Occupational Stress [...] any time in the past 12 m [facility], were you homeless or living in a senior living (including now)? No 06/15/2025 Comments No Sex and Gender Information Value Date Recorded Sex Assigned at Female 04/21/2024 2:38 PM CDT Legal Sex Female 5:23 PM AUTOMOBILE GLASS TECHNICIAN Gender Identity Female 04/21/2024 2:38 PM CDT Sexual Orientation Straight 04/21/2024 2: 38 PM CDT documented as of this encounter Functional Status * Is person deaf or have serious hearing difficulty? Answer Date of Assessment Author No 06/15/2025 7:30 PM CDT Jf Davis RN * Is person blind or have serious difficulty seeing? Answer Date of Assessment Author No 06/15/2025 7:30 PM CDT Jf Davis RN * Does person have serious difficulty walking/climbing stairs? Answer Date of Assessment Author No 06/15/2025 7:30 PM CDT Jf Davis RN * Does person have difficulty dressing/bathing? Answer Date of Assessment Author No 06/15/2025 7:30 PM CDT Jf Davis RN * Does person have difficulty doing errands alone? Answer Date of Assessment Author No 06/15/2025 7:30 PM CDT Jf Davis RN documented as of this encounter Mental Status * Does person have difficulty concentrating/remembering/making decisions? Answer Entry Date Author No 06/15/2025 7:30 PM CDT Jf Davis RN documented in this encounter Plan of Treatment Upcoming Encounters Date Type Department Care Team (Latest Contact Info) Description 08/09/2025 10:30 AM CDT Hospital Encounter [facility] ENDOSCOPY [address] [place] [phone] Salomon Sapp MD [address] [place] [address] [address] [place] [address] Surgery General 08/09/2025 10:30 AM CDT - 08/09/2025 11:00 AM CDT Surgery [facility] ENDOSCOPY [address] [place] [address] Salomon Sapp MD [address] [place] [address] [address] [place] [address] EGD--w/ Sekou 09/24/2025 9:30 AM AUTOMOBILE GLASS TECHNICIAN Appointment [facility] US [address] [place] [phone] Salomon Sapp MD [address] [place] [address] [address] [place] [address] 11/26/2025 10:00 AM AUTOMOBILE GLASS TECHNICIAN Office Visit [facility] - GI [address] [place] [address] [place] [phone] Salomon Sapp MD [address] [place] [address] [address] [place] [address] Scheduled Procedures Name Priority Associated Diagnoses Date/Ti me ESOPHAGOGASTRODUODENOSCOPY ( EGD) DIAGNOSTIC 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 Author Medication Management General On track( 1:27 PM CDT) Mary Kay Andrade, RN Note: Expected end date: ongoing Interventions: Take all medications as prescribed Let your doctor know right away about any changes in your medications Make sure to request a refill of your medication at least one week prior to your last dose Safety General On track( 1:27 PM CDT) Nay Simental, SAMI Note: Expected end date: ongoing Interventions: [...] Maintain an unobstructed path to the bathroom documented as of this encounter Visit Diagnoses Not on filedocumented in this encounter Care Teams Translator And Interpreter Relationship Specialty Start Date End Date Sabine Parker APRN-FRANCE [address] [place] [address] PCP - General Nurse Practitioner Family 05/07/25 Sadia Morris [facility] [address] [place] [address] 09/13/24 documented as of this encounter
--- OUTSIDE RECORDS SUMMARY | 2025-07-20 14:07 | XMS_ITS | Encounter Summary ---
Author Organization [facility] Care Team Providers Care Endodontist Name Role Phone Ric Malik MD Unavailable [phone] Ric Malik MD Unavailable [phone] Natacha Hoyt MD Primary Care Provider Rubens Claros MD Unavailable [phone] Encounter Details Date Type Department Care Team (Latest Contact Info) Description 07/19/2025 Travel Social History Tobacco Use Types Packs/Day Years [...] on file documented as of this encounter Plan of Treatment Upcoming Encounters Date Type Department Care Team (Latest Contact Info) Description 07/28/2025 4:00 PM [facility] [address] [place] [address] Rubens Claros MD #2 [facility], [address] [address] Discharge Disposition: Discharged to home or Selfcare 08/03/2025 2:40 PM CDT Hospital Encounter [facility] Periop [address] [place] [address] [facility] [address] [address] 08/03/2025 2:40 PM CDT - 08/03/2025 4:40 PM CDT Surgery [facility] Periop [address] [place] [address] Rubens Claros MD #[address] [address] CYSTOSCOPY, RIGHT URETEROSCOPY WITH HOLMIUM LASER LITHOTRIPSY 10/21/2025 1:00 PM CHRONIC DISEASE EPIDEMIOLOGIST Office Visit [facility] [address] [phone] Ric Malik MD [facility] 2 [place] [address] Scheduled Procedures Name Priority Associated Diagnoses Date/Ti [...] documented as of this encounter Care Teams Endodontist Relationship Specialty Start Date End Date Natacha Hoyt MD [address] [place] [address] [address] [place] [address] PCP - General Family Medicine 08/29/23 Ric Malik MD [address] [place] [phone] Consulting Physician Oncology 05/22/22 Ric Malik MD [address] [place] [address] Consulting Physician Oncology 08/28/23 Rubens Claros MD #2 [facility], [address] [address] Consulting Physician Urology 06/07/25 documented as of this encounter
--- OUTSIDE RECORDS SUMMARY | 2025-07-20 14:07 | XMS_ITS | Data Portability ---
Author Organization [facility] [employer], Main Office Address [address] [place] [address] Assessment Encounter Date Assessment Date Assessment LastModified by Organization Details LastModified Time 06/04/2023 06/04/2023 This note is dictated and transcribed by [employer]. Software Asset Management Analyst variances may occur. Despite proofreading, typographical errors may occur. [email or web address] Not available 06/04/2023 12:39:36 07/16/2023 07/16/2023 This note is dictated and transcribed by [employer]. Software Asset Management Analyst variances may occur. Despite proofreading, typographical errors may occur. Not available 07/16/2023 14:07:40 Plan of Treatment Reminders Order Date Submit Date Provider Last Modified By Organization Details Last Modified Time Details Appointments None recorded. Lab None recorded. Referral physical therapist referral 2022 023 [email or web address] Not available 3 16:19:42 Procedures None recorded. Surgeries None recorded. Imaging US, ankle - eval peroneal tendons and PT tendon 2023 024 [email or web address] [facility] ([facility]), [address] [place], [address], 4 09:17:43 XR, foot, 3 or more view 2023 024 [email or web address] [facility] ([facility]), [address] [place], [address], 4 09:17:43 Medication Orders None recorded. Patient TargetsNo targets recorded. Patient Instructions Encounter Date Encounter Id Patient Instructions Last Modified By Organization Details Last Modified Time 06/04/2023 [id number] peroneal tendon strain: rehab exercises Not available 06/04/2023 12:39:37 Reason for Referral Physical Therapist Referral for Peroneal tendinitis of right lower limb Referring Physician: Joo Kelly, Podiatric Surgery, Encounter Date: 07/16/2023 Results Created Date Observation Date Name Description Value Unit Range Abnormal Flag Note LastModifiedBy Organization Detail LastModifiedTime 12/26/1912/25/2022 XR, foot, 3 or more view No observ ation record ed. [address], [place], [address], 12/26/2022 15:46:22 12/27/19 23 12/25/2022 XR, foot, 3 or more view No observ ation record ed. [address], [place], [address], 12/26/2022 15:46:57 Result Notes None recorded. Problems Name Problem SNOMED Code Status Onset Date Resolution Date Notes Provider Name and Address Organization Details Recorded Time Pain in right foot [id number] 07 Active 2022 Not Available [facility] 01:48:40 Peroneal tendinitis of right lower limb [id number] 09 Active 2022 Joo Kelly DPM [address], [address], [place], [address] , [employer] 12:38:16 Problem Notes None recorded. Procedures Surgical History Date Name Laterality Status Provider Name and Address Organization Details Recorded Time 06/04/20 Joint Injection-Podiatry 6217 completed Joo Kelly DPM [address], [address], [place], [address], [employer] 06/04/2023 13:36:39 Removal of ovarian cyst(s) completed Not Available [facility] 12/13/2022 01:48:26 Cholecystectomy completed Not Available [facility] 12/13/2022 01:48:26 Ankle Surgery completed Not Available [facility] 12/13/2022 01:48:26 Dilation and curettage completed Not Available [facility] 12/13/2022 01:48:26 Hysterectomy completed Not Available [facility] 12/13/2022 01:48:26 Knee arthroscopy/surger y completed Not Available [facility] 12/13/2022 01:48:26 Imaging Results None recorded. Procedure Notes None recorded. Medical Equipment None Reported. Allergies Allergen ID Allergen Name Allergen Category Reaction Reaction Severity Criticality Documentation Date Start Date Code Code System Note Provider Name and Address Organization Details Recorded Time 55079 sunflower oil food,medi cation Not available Not available Not available 12/13/2022 54162 RxNorm Not Available [facility] 01:49:15 Medications Name Sig Start Date Stop Date Status Note LastModified by Organization Details LastModified Time Miralax 17 gram oral powder packet Take by oral route. active Not Available Not Available No t Available cyclobenzap rine 10 mg tablet TAKE 1 TABLET BY MOUTH THREE TIMES DAILY NEEDED FOR MUSCLE SPASM active Not Available Not Available No t Available atorvastati n 80 mg tablet TAKE 1 TABLET BY MOUTH AT BEDTIME active Not Available Not Available No t Available clonidine HCl 0.1 mg tablet TAKE 1 TABLET BY MOUTH TWICE DAILY active Not Available Not Available No t Available naproxen 375 mg tablet TAKE 1 TABLET BY MOUTH TWICE DAILY WITH MEALS FOR 5 DAYS active Not Available Not Available No t Available sucralfate 1 gram tablet TAKE 1 TABLET BY MOUTH 4 TIMES DAILY active Not Available Not Available No t Available hydroxyzine HCl 50 mg tablet TAKE 1 TABLET BY MOUTH ONCE DAILY NEEDED active Not Available Not Available No t Available omeprazole 40 mg capsule,del ayed release TAKE 1 CAPSULE BY MOUTH TWICE DAILY active Not Available Not Available No t Available tramadol 50 mg tablet TAKE 1 TABLET BY MOUTH EVERY 6 HOURS active Not Available Not Available No t Available propranolol 10 mg tablet TAKE 2 TABLETS BY MOUTH TWICE DAILY active Not Available Not Available No t Available trazodone 100 mg tablet TAKE 1 TABLET BY MOUTH AT BEDTIME NEEDED active Not Available Not Available No t Available dicyclomine 20 mg tablet TAKE 1 TABLET BY MOUTH THREE TIMES DAILY NEEDED FOR ABDIMINAL DISCOMFOR T active Not Available Not Available No t Available betamethaso ne valerate 0.1 % topical cream APPLY CREAM TOPICALLY TWICE DAILY NEEDED FOR RASH active Not Available Not Available No t Available hyoscyamine sulfate 0.125 mg tablet TAKE 1 TABLET BY MOUTH 4 TIMES DAILY active Not Available Not Available No t Available trazodone 150 mg tablet TAKE 1/2 TO 1 (ONE-HALF TO ONE) TABLET BY MOUTH ONCE DAILY AT BEDTIME NEEDED active Not Available Not Available No t Available buspirone 10 mg tablet TAKE 1 TABLET BY MOUTH TWICE DAILY active Not Available Not Available No t Available hydroxyzine HCl 25 mg tablet TAKE 1 TABLET BY MOUTH THREE TIMES DAILY NEEDED active Not Available Not Available No t Available topiramate 200 mg tablet TAKE 1 TABLET BY MOUTH ONCE DAILY active Not Available Not Available No t Available scopolamine 1 mg over 3 days transdermal patch APPLY 1 PATCH EVERY THREE DAYS NEEDED FOR MOTION SICKNESS active Not Available Not Available No t Available albuterol sulfate HFA 90 mcg/actuati on aerosol inhaler INHALE 1 PUFF BY MOUTH EVERY 4 HOURS NEEDED FOR SHORTNESS OF BREATH FOR WHEEZING active Not Available Not Available No t Available propranolol 20 mg tablet TAKE 1 TABLET BY MOUTH TWICE DAILY active Not Available Not Available No t Available ondansetron 4 mg disintegrat ing tablet DISSOLVE 1 TABLET IN MOUTH ONCE DAILY NEEDED FOR NAUSEA active Not Available Not Available No t Available clotrimazol e 1 % topical cream APPLY CREAM TO AFFECTED AREA EVERY 12 HOURS FOR 8 WEEKS active Not Available Not Available No t Available lisinopril 2.5 mg tablet TAKE 1 TABLET BY MOUTH ONCE DAILY active Not Available Not Available No t Available dicyclomine 10 mg capsule TAKE 1 CAPSULE BY MOUTH THREE TIMES DAILY WITH MEALS active Not Available Not Available No t Available buspirone 15 mg tablet TAKE 1 TABLET BY MOUTH TWICE DAILY active Not Available Not Available No t Available Dex4 Glucose Pouch Pack 4 gram chewable tablet Take by oral route. active Not Available Not Available No t Available duloxetine 30 mg capsule,del ayed release TAKE 1 CAPSULE BY MOUTH TWICE DAILY active Not Available Not Available No t Available acetaminoph en active Not Available Not Available Not Available ibuprofen 2022 active Not Available Not Available Not Avai lable Benadryl 2022 active Not Available Not Available Not Avai lable mupirocin active Not Available Not Jayla ilable Not Available lansoprazol e active Not Available Not Available Not Available topiramate active Not Available Not Av ailable Not Available ondansetron active Not Available Not A vailable Not Available betamethaso ne acet,micro( bulk) active Not Available Not Available Not Available quetiapine 50 mg tablet TAKE 2 TABLETS BY MOUTH AT BEDTIME 06/04 completed Not Available Not Available Not Available dexlansopra zole 60 mg capsule,bip hase delayed release TAKE 1 TABLET BY MOUTH ONCE DAILY active Not Available Not Available No t Available quetiapine ER 50 mg tablet,exte nded release 24 hr TAKE 2 TABLETS BY MOUTH ONCE DAILY IN THE MORNING 06/04 completed Not Available Not Available Not Available D3 DOTS 2022 active Not Available Not Available Not Avai lable OneTouch Verio test strips USE DIRECTED 3 TO 4 TIMES DAILY TO MONITOR GLUCOSE active Not Available Not Available No t Available Victoza 3-Zaid 0.6 mg/0.1 mL (18 mg/3 mL) subcutaneou s pen injector INJECT 1.8 MG (0.3 ML) SUBCUTANE OUSLY ONCE DAILY active Not Available Not Available No t Available Trulicity 1.5 mg/0.5 mL subcutaneou s pen injector INJECT 1.5MG SUBCUTANE OUSLY ONCE A WEEK active Not Available Not Available No t Available Trulicity 0.75 mg/0.5 mL subcutaneou s pen injector INJECT 1 SYRINGE SUBCUTANE OUSLY ONCE DAILY active Not Available Not Available No t Available Vraylar 1.5 mg capsule TAKE 1 CAPSULE BY MOUTH ONCE DAILY active Not Available Not Available No t Available Vraylar 4.5 mg capsule TAKE 1 CAPSULE BY MOUTH ONCE DAILY active Not Available Not Available No t Available Vraylar 3 mg capsule TAKE 1 CAPSULE BY MOUTH ONCE DAILY FOR 30 DAYS active Not Available Not Available No t Available Humulin R U-500 (Conc) Insulin Kwikpen 500 unit/mL (3 mL) subcutaneou s INJECT 70 UNITS SUBCUTANE OUSLY THREE TIMES DAILY WITH MEALS active Not Available Not Available No t Available TRUEplus Pen Needle 32 gauge x 5/32 USE 1 THREE TIMES DAILY active Not Available Not Available No t Available Dexcom G6 Sensor device USE DIRECTED active Not Available Not Available No t Available Dexcom G6 Supervisor Concrete Block Plant USE DIRECTED active Not Available Not Available No t Available Dexcom G6 Transmitter device USE DIRECTED active Not Available Not Available No t Available Vitals Date Recorded Body height Heart rate Respiratory rate Oxygen saturation Oxygen saturation in Arterial blood by Pulse oximetry Systolic And Diastolic Provider Name and Address Organization Details Last Updated DateTime 4 157.48 cm 94 /min 14 /min 98 % 98 % 129/83 mm[Hg] Jossie [facility] [employer] [facility] [employer] [facility] 4 10:43:59 Date Recorded Body mass index (BMI) Body height Oxygen saturation Oxygen saturation in Arterial blood by Pulse oximetry Heart rate Respiratory rate Body weight Systolic And Diastolic Provider Name and Address Organization Details Last Updated DateTime 3 45.7 kg/m2 157.48 cm 98 % 98 % 72 /min 14 /min 401206. 09 g 93/56 mm[Hg] Not Available [facility] 3 01:48:30 Date Recorded Body height Heart rate Respiratory rate Oxygen saturation Oxygen saturation in Arterial blood by Pulse oximetry Systolic And Diastolic Provider Name and Address Organization Details Last Updated DateTime 3 157.48 cm 83 /min 14 /min 99 % 99 % 96/64 mm[Hg] Jossie [facility] [employer] [facility] [employer] [facility] 3 09:08:57 Date Recorded Body height Heart rate Respiratory rate Oxygen saturation Oxygen saturation in Arterial blood by Pulse oximetry Systolic And Diastolic Provider Name and Address Organization Details Last Updated DateTime 3 157.48 cm 93 /min 14 /min 98 % 98 % 103/65 mm[Hg] Jossie [facility] [employer] [facility] 3 12:33:43 Date Recorded Body height Heart rate Respiratory rate Oxygen saturation Oxygen saturation in Arterial blood by Pulse oximetry Systolic And Diastolic Provider Name and Address Organization Details Last Updated DateTime 3 157.48 cm 78 /min 14 /min 98 % 98 % 106/77 mm[Hg] Jossie [facility] [employer] [facility] 3 11:29:44 Social History Question Answer Notes LastModified by Organizat ion Details LastModified Time Tobacco Smoking Status Former Smoker Not Available [facility] 12/13/2022 01:48:11 If You Are , What Was Your Level Of Alcohol Consumption Prior To ? None [id number] Information not available 12/13/2022 What Is Your Level Of Caffeine Consumption? Occasional [id number] Information not available 12/13/2022 What Was The Date Of Your Most Recent Tobacco Screening? 11/29/2022 [id number] Information not available 12/13/2022 Has Tobacco Cessation Counseling Been Provided? No [id number] Information not available 12/13/2022 Sex: Unknown Functional Status Question Answer Note LastModified by Organizat ion Details LastModified Time Do you use any illicit or recreational drugs? No [id number] Information not available 12/13/2022 Do you or have you ever used any other forms of tobacco or nicotine? No [id number] 26 Information not available 12/13/2022 What is your level of alcohol consumption? None [id number] 26 Information not available 12/13/2022 Mental Status None recorded. Family History Relationship Description Onset Age of this Age Resolved Age Notes LastModified by Organization Details LastModified Time Father Diabetes mellitus [id number] Not available 12/13/2022 01:48:27 Father Family history of stroke [id number] Not available 12/13/2022 01:48:27 Father Hypertensive disorder [id number] Not available 12/13/2022 01:48:27 Unspecified Relation Diabetes mellitus [id number] Not available 12/13/2022 01:48:27 Unspecified Relation Hypertensive disorder [id number] [id number] Not available 12/13/2022 01:48:27 Sister Diabetes mellitus [id number] [id number] Not available 12/13/2022 01:48:27 Mother Arthritis [id number] Not available 12/13/2022 01:48:27 Mother Hypertensive disorder [id number] [id number] Not available 12/13/2022 01:48:27 Mother Heart disease [id number] [id number] Not available 12/13/2022 01:48:27 Paternal Grandfather Heart disease [id number] Not available 12/13/2022 01:48:27 Maternal Grandfather Heart disease [id number] Not available 12/13/2022 01:48:27 Medical History Condition Response ARTHRITIS Y HEADACHES/MIGRAINES Y OBESITY Y HEPATITIS / LIVER DISEASE Y DIABETES, TYPE Y DEPRESSION (INCLUDING POST ) Y HYPERTENSION Y HIGH CHOLESTEROL / HYPERLIPIDEMIA Y Gynecological HistoryNo gynecological history recorded. Obstetrics History GPAL:G 0 P 0 0 0 0 Past Encounters Encounter ID Performer Location Encounter Start Date Encounter Closed Date Diagnosis/Indication Diagnosis SNOMED-CT Code Diagnosis ICD10 Code Diagnosis IMO Codes Diagnosis Note [id number] Joo Kelly DPM [facility] [address] [address] 11/29/2022 00:00:00 12/03/2022 08:32:09 [id number] Joo Kelly DPM [facility] [place] [address] [address] 12/27/2022 09:01:57 12/27/2022 13:58:05 Pain in right foot 1433694021 20670 M79.671 recommend custom orthotics and supportive shoe gearRice therapyRx physical therapy todayIf fails physical therapy will recommend follow-up with MRI [id number] PO [facility] [place] [address] [place] [phone] 06/04/2023 12:28:41 06/04/2023 13:47:55 Pain in right foot 2017015252 37418 M79.671 Did not obtain orthoticsd id not did go to physical therapyrec ommend supportive shoe gear Peroneal t endinitis of right lower limb 0749684470 72309 M76.71 patient refuses physical therapyric e therapyste roid injection along peroneal tendon at the fibular groove within the tendon sheathcam boot therapyfol low-up in 1 month [id number] PO [facility] [place] [address] [place] [phone] 07/16/2023 11:22:52 07/16/2023 14:29:24 Peroneal tendinitis of right lower limb 1294768366 67898 M76.71 patient accepts physical therapy, todayrice therapyste roid injection no significan t leg- no signs of infectionc am boot therapy, continuefo llow-up in 1-2 months [id number] Joo Kelly DPM [facility] [place] [address] [place] [phone] 10/22/2023 10:39:59 10/22/2023 14:50:07 Peroneal tendinitis of right lower limb 3349469449 02052 M76.71 patient accepts physical therapy, todaywent to 3-4 sessions of therapy and stoppedric e therapyste roid injection no significan t leg- no signs of infectionc am boot therapy, continuefo llow-up in 1-2 months Pain in right foot 95698 96729 08522 M79.671 new pain now to the medial subtalar joint areaprevio us coalition resection Health Concerns Section Related Observation LastModified by Organization Detai ls LastModified Time None Recorded Concern Status LastModified by Organization Details LastModified Time None Recorded Advance Directives Directive None Recorded Payers Insurance Date Sequence Insurance Name Policy Number Policy Webb Covered Member ID Webb Member ID Guarantor Name 11/02/2023 1 [facility] - DOS ON OR AFTER 21 (MEDICAID REPLACEMENT - HMO) Beulah Fung [id number] Beulah Fung Notes Date Note Type Note Provider Name and Address Organization Details Recorded Time 12/27/2022 text/html . Patient is a 42-year-old female obese who returns the office for follow-up on right foot pain. Patient has had a previous talar coalition resection and at last visit underwent steroid injection at the subtalar joint to which she states she had significant relief that day and for week later. Patient states since the pain has returned. Patient states that at times she feels like there is a clicking and popping in the area. Patient through range of motion I cannot recreate this clicking and popping. Patient states that she was recommended orthotics in the past but does not have them and does not wear supportive shoe gear and has flat nonsupportive style shoes. I did recommend that she wear more supportive shoe gear as well as obtained pre fabricated orthotics such as Powerstep or custom orthotics. Patient states that she does not have the money for custom orthotics. Patient denies any other pedal complaints. Joo Kelly, [address] [facility], [facility] [address], [place], [address], [facility] [employer] 12/27/2022 10:16:24 06/04/2023 text/html . Patient is a 42-year-old female who obese who presents the office with complaints of right ankle pain along her peroneal tendons. Patient denies any injury. Patient has been seen for subtalar joint pain which she underwent a steroid injection and states that she is no longer having any discomfort there but does have some paresthesias along the medial aspect of incision area. Patient states that most of her pain is when she is walking along her peroneal tendons. Patient states she did not go to physical therapy and she did not get any custom orthotics. Patient states that her and her only have 1 car and she is unable to walk anywhere or be able to drive since he has the vehicle. Patient denies any other pedal complaints. Joo Kelly DPM [address], [address], [place], [address], [place] 06/04/2023 13:42:19 07/16/2023 text/html . Patient is a 42-year-old female obese who returns the office for follow-up on peroneal tendinitis of the right foot. Patient underwent a injection and has been undergoing Cam boot therapy and continues to have pain to the area. Patient states it is not significantly improved. Patient denies any significant swelling or bruising to the area. Patient states when she is walking is more tender. Patient denies any other pedal complaints. Joo Kelly DPM [address], [address], [place], [address], [employer] 07/16/2023 14:08:25 10/22/2023 text/html . Patient is a 43-year-old female morbidly obese who returns the office for follow-up on peroneal tendinitis of the right lower extremity. Patient has been using the cam boot but states she has only went to 3 physical therapy sessions. Patient states she did not feel they are helping so did not continue. Patient states now she is having new pain does well with the existing pain on her medial subtalar joint area where she has had a previous tarsal coalition resection by another provider. Patient states the pain is along the posterior tibial tendon area. Patient denies any injury of the foot. Patient denies any other pedal complaints. Joo Kelly DPM [address] [facility] [address], [place], [address], [place] [facility] 10/22/2023 14:07:05 OBGyn Episode No OBEpisode recorded.
--- OUTSIDE RECORDS SUMMARY | 2025-07-20 14:07 | XMS_ITS | Encounter Summary ---
Author Organization [facility] Address [address] [place] [address] Care Team Providers Care Craft Worker Name Role Phone Eber Sebastian MD Primary Care Provider Roxana Martins NP Primary Care Provider [phone] Natacha Hoyt MD Primary Care Provider Encounter Details Date Type Department Care Team (Late st Contact Info) Description 02/27/2018 Hospital Follow-up Call [facility] [place] [address] Yamilex Hi, RN Social History Tobacco Use Types Packs/Day Years Used Date Smoking Tobacco: Former Cigarettes Q uit: 2007 Smokeless Tobacco: Never Alcohol Use Standard Drinks/Week Comments No 0 (1 standard drink = 0.6 oz pur e alcohol) Comments No Sex and Gender Information Value Date Recorded Sex Assigned at Not on file Legal Sex Female 5:08 PM CDT Gender Identity Female 12/01/2021 10:08 AM SPORTS MEDICINE COORDINATOR Sexual Orientation Straight 12/01/2021 10 :08 AM SPORTS MEDICINE COORDINATOR documented as of this encounter Functional Status * RETIRED Are you deaf or do you have serious difficulty hearing Answer Date of Assessment Author Status No 02/25/2018 10:45 AM CDT Acti ve * RETIRED Are you blind or do you have serious difficulty seeing, even when wearing glasses? Answer Date of Assessment Author Status No 02/25/2018 10:45 AM CDT Acti ve * Do you have serious difficulty walking or climbing stairs? Answer Date of Assessment Author Status No 02/25/2018 10:45 AM KUMART Chitra Bravo RN Active * Do you have difficulty dressing or bathing? Answer Date of Assessment Author Status No 02/25/2018 10:45 AM KUMART Chitra Bravo RN Active * Because of a physical, mental, or emotional condition, do you have difficulty doing errands alone such as visiting a doctor's office or shopping? Answer Date of Assessment Author Status No 02/25/2018 10:45 AM KUMART Chitra Bravo RN Active documented as of this encounter Mental Status * Because of a physical, mental, or emotional condition, do you have serious difficulty concentrating, remembering, or making decisions? Answer Entry Date Author Status No 02/25/2018 10:45 AM CDT Chitra Bravo RN Active documented in this encounter Plan of Treatment Not on file documented as of this encounter Visit Diagnoses [...] documented as of this encounter Care Teams Craft Worker Relationship Specialty Start Date End Date Eber Sebastian MD [address] [place] [address] PCP - General FAMILY PRACTICE 09/24/17 12/04/20 Roxana Martins NP [address] [place] [address] PCP - General NURSE PRACTITIONER 12/05/20 06/10/21 Natacha Hoyt MD [address] [place] [address] PCP - General FAMILY PRACTICE 06/11/21 documented as of this encounter
--- OUTSIDE RECORDS SUMMARY | 2025-07-20 14:07 | XMS_ITS | Clinical Summary ---
Author Organization [facility] Address [address] [place] [address] Care Team Providers Care Polysomnography Technologist Name Role Phone Natacha Hoyt MD Primary Care Provider Allergies Active Allergy Reactions Criticality Noted Date Comments Craven Oil Hives 09/24/2017 Medications Topiramate 200 MG Tab Take 200 mg by mouth nightly at bedtime. Active cloNIDine 0.1 MG tablet Take 0.1 mg by mouth 2 (two) times daily. Active fluticasone propionate 50 MCG/ACT nasal spray 2 sprays by Nasal route 2 (two) times daily as needed. Active lisinopril 2.5 MG tablet Take 2.5 mg by mouth daily. 0 9 Active insulin aspart protamine-insulin aspart (70-30) 100 UNIT/ML injection (VIAL) Inject 75 Units into the skin 2 (two) times daily before meals. Active DULoxetine 30 MG capsule Take 30 mg by mouth 2 (two) times daily. 0 Active VICTOZA 18 MG/3ML injection Inject 1.8 mg into the skin every evening. 0 Active atorvastatin 80 MG tablet Take 80 mg by mouth nightly at bedtime. Active hydrOXYzine 25 MG capsule Take 25 mg by mouth 3 (three) times daily as needed for Anxiety. Active cyclobenzaprine 10 MG tabletIndications:K nee Pain Take 10 mg by mouth 2 (two) times daily as needed. Indications: Knee Pain 1 Active ondansetron 4 MG disintegrating tablet Take 1 tablet (4 mg total) by mouth every 4 (four) hours as needed. 20 tablet 2 Active sucralfate 1 G tablet Take 1 tablet (1 g total) by mouth 4 (four) times daily. 120 tablet 2 Active Active Problems Problem Noted Date Diagnosed Date Renal stone 07/18/2021 Kidney stone 07/17/2021 Cellulitis 06/04/2021 Sepsis ([facility]/HCC) 06/01/2021 Chest pain 07/14/2020 Nystagmus 09/17/2019 Menometrorrhagia 04/24/2018 Menorrhagia with regular cycle 02/24/2018 Anemia due to multiple mechanisms 02/06/2018 Thrombocytopenia 02/06/2018 Gastroesophageal reflux disease without esophagi tis 11/16/2017 Hyperlipidemia 11/16/2017 Cirrhosis of liver ([facility]/HCC) 11/16/2017 Overview (06/01/2021): Overview: Liver biopsy performed during cholecystectomy noted evidence of steatohepatitis with bridging fibrosis. Liver biopsy performed during cholecystectomy noted evidence of steatohepatitis with bridging fibrosis. Nonalcoholic steatohepatitis ([facility]) 11/16/2017 Overview (06/01/2021): Overview: Liver biopsy performed during cholecystectomy noted evidence of steatohepatitis with bridging fibrosis. Liver biopsy performed during cholecystectomy noted evidence of steatohepatitis with bridging fibrosis. Obesity 11/16/2017 Type 2 diabetes mellitus wit hout complications ([facility]HCC) 11/16/2017 Mediastinal lymphadenopathy 05/30/2017 Abdominal lymphadenopathy 04/11/2017 Hepatosplenomegaly 04/11/2017 Liver lesion 04/11/2017 kadeem Davilaeal 04/30/2016 Foot fracture 01/31/2016 Immunizations Immunization Administration Dates Next Due Fluzone 6 Months+ Quad (0.5 mL Prefilled Syringe ) 07/15/2020 Family History Medical History Relation Comments Diabetes Father Hypertension Father Stroke Father COPD Mother Dementia Mother Heart Disease Mother Hypertension Mother Crohns Disease Sister 2 Diabetes Sister 2 Relation Status Comments Father Mother Alive Sister 1 Alive Sister 2 Alive Social History Tobacco Use Types Packs/Day Years Used Date Smoking Tobacco: Former Cigarettes 1 13 1 994 - 2006 Smokeless Tobacco: Never Alcohol Use [...] CDT Gender Identity Female 12/01/2021 10:08 AM GELATIN DYNAMITE PACKING OPERATOR Sexual Orientation Straight 12/01/2021 10 :08 AM GELATIN DYNAMITE PACKING OPERATOR Last Filed Vital Signs Vital Sign Reading Time Taken Comments Blood Pressure 138/88 03/28/2022 3:45 AM CDT Pulse 77 03/28/2022 3:45 AM CDT Temperature 36.3 C (97.3 F) 03/27/2022 11:11 AM CDT Respiratory Rate 13 03/28/2022 3:45 AM CDT Oxygen Saturation 95% 03/28/2022 3:45 AM CDT Inhaled Oxygen Concentration - - Weight 102 kg (224 lb 13.9 oz) 03/27/2022 11:06 AM CDT Height 154.9 cm (5' 1) 03/27/2022 11:06 AM CDT Body Mass Index 42.49 03/27/2022 11:06 AM CDT Plan of Treatment Health Maintenance Due Date Last Done Comments Colorectal Cancer Screening Colonoscopy (10 Years) 1978 Kidney Health Evaluation 1978 Annual Physical 1981 Diabetes: Retinopathy Eye Exam 1996 DTaP, Tdap and Td Vaccines ( 1 - Tdap) 1997 Pneumococcal Vaccine: Pediatrics (0 to 5 Years) and At-Risk Patients (6 to 49 Years) (1 of 2 - PCV) 1997 Mammogram Screening 2018 Lipid Panel 07/15/2021 07/15/2020, 09/17/2019 Hemoglobin A1C 12/03/2021 06/02/2021, 09/17/2019 COVID-19 Vaccine (1 - 2023-2 5 season) 2025 Influenza Adult (#1) 2025 07/15/2020, 09/14/2019 Hepatitis C Completed 12/09/2015 Hepatitis B Vaccines Completed 06/04/2019, 01/01/2019, 12/04/2018 Meningococcal B Vaccine Aged Out No l onger eligible based on patient's age to complete this topic Meningococcal Vaccine Aged Out No john estela eligible based on patient's age to complete this topic RSV Immunizations Under 20 Months Aged Out No longer eligible b ased on patient's age to complete this topic Goals Goal Patient Goal Type Associated Problems Recent Progress Patient-Stated? Author Safety Patient/family will have appropriate support at home upon discharge General Randa Coello RN Patient will return to prior living situation and remain independent in ADLs upon discharge from hospital General Shani Hurley RN Medical Devices Implanted Type Area Jewel Bearing Facer Device Identifier Shelf Expiration Date Model / Serial / Lot Stent Ureteral [place] Sci Contour 6fr X 28cm - [id number] Implanted:Qty : 1 on 08/15/2021 by Fransico Hunter MD at [facility] Stent Right: Ureter [employer] [id number] 02/24/2024 [id number] 40 / / [id number] Explanted Type Area Jewel Bearing Facer Device Identifier Shelf Expiration Date Model / Serial / Lot Stent Uret 6fr 28cm Pigtl Crv Taper Tip Bldr Mrk - [id number] Implanted:Qty : 1 on 07/18/2021 by Fransico Hunter MD at [facility] Explanted:Qty : 1 on 08/15/2021 at [facility] Stent Right: Ureter [employer] [id number] 05/25/2024 [id number] 40 / / [id number] Procedures Procedure Name Priority Date/Time Associated Diagnosis Comments HEMOGLOBIN, GLYCOSYLATED STAT 06/02/2021 6:50 AM CDT LIPID PANEL Routine 07/15/2020 4:09 AM CDT HEPATITIS A,B,& C Routine 12/09/2015 9:2 0 AM GELATIN DYNAMITE PACKING OPERATOR from Last 3 Months or Most Recently Relevant to Health Maintenance Results * (ABNORMAL) HEMOGLOBIN, GLYCATED (06/02/2021 6:50 AM CDT) HGB A1C 9.0(H) <5.7 % 06/02/2021 9:44 AM CDT [facility] Comment: ADA GUIDELINES 2010 5.7 TO 6.4% INCREASED RISK OF DIABETES > OR = 6.5% CONSISTENT WITH DIABETES ESTIMATED AVG GLUCOSE 212 mg/dL 06/02/2021 9:44 AM CDT [facility] 06/02/2021 6:50 AM CDT us Fransisca Staley MD LABORATORY Final Resul t [facility] [address] [place] [id number], * (ABNORMAL) LIPID PANEL (07/15/2020 4:09 AM CDT) CHOLESTEROL 130 <200 MG/DL 07/15/2020 4:53 AM CDT [facility] TRIGLYCERIDES 206(H) <150 MG/DL 07/15/2020 4:53 AM CDT [facility] HDL 38(L) >40.0 MG/DL 07/15/2020 4:53 AM CDT [facility] LDL (CALCULATED) 51 <100 MG/DL 07/15/2020 4:53 AM CDT [facility] NON HDL CHOLESTEROL 92 <130 MG/DL 07/15/2020 4:53 AM CDT [facility] CHOL/HDL RATIO 3.4 0.0 - 4.5 07/15/2020 4:53 AM CDT [facility] VLDL CALCULATION 41 5 - 55 MG/DL 07/15/2020 4:53 AM CDT [facility] LIPID INTERPRETATION 07/15/2020 4:53 AM CDT [facility] Comment: NIH CONCENSUS REPORT RECOMMENDATIONS: ADULT CHILD LOW RISK: CHOLESTEROL <200 <170 TRIGLYCERIDE <150 --- HDL >=60 --- LDL <100 <110 BORDERLINE: CHOLESTEROL 200-239 170-199 TRIGLYCERIDE 150-199 --- HDL 40-59 --- LDL 100-159 110-129 HIGH RISK: CHOLESTEROL >=240 >=200 TRIGLYCERIDE >=200 --- HDL <40 --- LDL >=160 >=130 07/15/2020 4:09 AM CDT Amy Garcia MD LABORATORY Final Re sult Performing Organization Address [facility] Co de Phone Number [facility] [address] [place] [address], * HEPATITIS A,B,& C (12/09/2015 9:20 AM GELATIN DYNAMITE PACKING OPERATOR) HAV IGM NON-REACTI VE NR [facility] TO EPIC CONVERSION HEPATITIS B SURFACE AG NON-REACTI VE NR [facility] TO EPIC CONVERSION HEP B SURFACE AB NON-REACTI VE [facility] TO EPIC CONVERSION HEP B CORE TOTAL AB NON-REACTI VE NR [facility] TO EPIC CONVERSION HEPATITIS C AB NON-REACTI VE NR [facility] TO EPIC CONVERSION 12/09/2015 9:20 AM GELATIN DYNAMITE PACKING OPERATOR 12/09/2015 9:20 AM GELATIN DYNAMITE PACKING OPERATOR Narrative [facility] TO EPIC CONVERSION - 12/09/2015 10:57 AM GELATIN DYNAMITE PACKING OPERATOR Result Communication: No patient communication needed at this time Robbin Cabna MD LABORATORY Final Result Performing Organization Address City/State/[facility] Co de Phone Number [employer] TO EPIC CONVERSION from Last 3 Months or Most Recently Relevant to Health Maintenance Insurance [employer] Advance Directives * Full Code (Latest Code Status on File) Date Activated Date Inactivated Comments 07/17/2021 11:01 PM 07/21/2021 5:21 PM * Full Code Date Activated Date Inactivated Comments 06/02/2021 5:22 AM 06/06/2021 1:27 PM * Full Code Date Activated Date Inactivated Comments 07/14/2020 8:58 PM 07/17/2020 8:43 PM * Full Code Date Activated Date Inactivated Comments 09/17/2019 4:36 PM 09/19/2019 2:04 AM * Full Code Date Activated Date Inactivated Comments 04/24/2018 3:50 PM 04/25/2018 2:42 PM Care Teams Polysomnography Technologist Relationship Specialty Start Date End Date Natacha Hoyt MD [address] [place] [address] PCP - General FAMILY PRACTICE 06/11/21
--- OUTSIDE RECORDS SUMMARY | 2025-07-20 14:07 | XMS_ITS | Encounter Summary ---
Author Organization [facility] Address [address] [place] [address] Care Team Providers Care Actuarial Manager Name Role Phone Natacha Hoyt MD Primary Care Provider Encounter Details Date Type Department Care Team (Late st Contact Info) Description 01/08/2022 MyChart Message Enc [facility] Medical [facility] Multispecialty Care - [facility] [address] [facility] [place] [address] Fransico Hunter MD [address] [place] [address] [place] [id number] [address] Social History Tobacco Use Types Packs/Day Years [...] CDT Gender Identity Female 12/01/2021 10:08 AM LIVING SKILLS ADVISOR Sexual Orientation Straight 12/01/2021 10 :08 AM LIVING SKILLS ADVISOR documented as of this encounter Functional Status [...] Assessment Author Status No 07/18/2021 5:06 PM KUMART Jing Plunkett RN Active * Do you have difficulty dressing or bathing? Answer Date of Assessment Author Status No 07/18/2021 5:06 PM Jing Alvarez RN Active * Because of a physical, mental, or emotional condition, do you have difficulty doing errands alone such as visiting a doctor's office or shopping? Answer Date of Assessment Author Status No 07/18/2021 5:06 PM Jing Alvarez RN Active documented as of this encounter [...] Total Score: 0 08/30/20 21 11:05 AM LIVING SKILLS ADVISOR documented as of this encounter Care Teams Actuarial Manager Relationship Specialty Start Date End Date Natacha Hoyt MD [address] [place] [address] PCP - General FAMILY PRACTICE 06/11/21 documented as of this encounter
--- OUTSIDE RECORDS SUMMARY | 2025-07-20 14:07 | XMS_ITS | Encounter Summary ---
Author Organization [facility] Address [address] [place] [address] Care Team Providers Care Head Paper Tester Name Role Phone Eber Sebastian MD Primary Care Provider [phone] Roxana Martins NP Primary Care Provider [phone] Natacha Hoyt MD Primary Care Provider Encounter Details Date Type Department Care Team (Late st Contact Info) Description 09/28/2020 [employer] Message Enc [facility], [facility] [address] [place], [place] [id number] Nay Tanner, [employer] [address] [facility]. [facility] [address] [place], [place] [id number] RE: Other Social History Tobacco Use Types Packs/Day Years Used Date Smoking Tobacco: Former Cigarettes 1 13 1 4 - 2006 Smokeless Tobacco: Never Alcohol Use Standard Drinks/Week Comments No 0 (1 standard drink = 0.6 oz pur e alcohol) Comments No Sex and Gender Information Value Date Recorded Sex Assigned at Not on file Legal Sex Female 5:08 PM CDT Gender Identity Female 12/01/2021 10:08 AM NURSERY RN Sexual Orientation Straight 12/01/2021 10 :08 AM NURSERY RN documented as of this encounter Functional Status * RETIRED Are you deaf or do you have serious difficulty hearing Answer Date of Assessment Author Status No 07/14/2020 9:05 PM CDT Activ e * RETIRED Are you blind or do you have serious difficulty seeing, even when wearing glasses? Answer Date of Assessment Author Status No 07/14/2020 9:05 PM CDT Activ e * Do you have serious difficulty walking or climbing stairs? Answer Date of Assessment Author Status No 07/14/2020 9:05 PM CDT Allie Thompson RN Active * Do you have difficulty dressing or bathing? Answer Date of Assessment Author Status No 07/14/2020 9:05 PM CDT Allie Thompson RN Active * Because of a physical, mental, or emotional condition, do you have difficulty doing errands alone such as visiting a doctor's office or shopping? Answer Date of Assessment Author Status No 07/14/2020 9:05 PM CDT Allie Thompson RN Active documented as of this encounter Mental Status * Because of a physical, mental, or emotional condition, do you have serious difficulty concentrating, remembering, or making decisions? Answer Entry Date Author Status No 07/14/2020 9:05 PM CDT Allie Thompson RN Active documented in this encounter Progress Notes * BHARGAV Cook - 09/28/2020 9:07 AM CST Sonia see note and call patient ERY RN documented in this encounter Plan of [...] documented as of this encounter Care Teams Head Paper Tester Relationship Specialty Start Date End Date Eber Sebastian MD [address] [place] [address] PCP - General FAMILY PRACTICE 09/24/17 12/04/20 Roxana Martins NP [address] [place] [address] PCP - General NURSE PRACTITIONER 12/05/20 06/10/21 Natacha Hoyt MD [address] [place] [address] PCP - General FAMILY PRACTICE 06/11/21 documented as of this encounter
--- OUTSIDE RECORDS SUMMARY | 2025-07-20 14:07 | XMS_ITS | Clinical Summary ---
Author Organization [facility] Address [address], [facility] [address] [place] [address] Phone Care Team Providers Care Fur Finisher Seamstress Name Role Phone Ric Malik MD Unavailable [phone] Ric Malik MD Unavailable [phone] Natacha Hoyt MD Primary Care Provider Rubens Claros MD Unavailable [phone] Allergies Active Allergy Reactions Criticality Noted Date Comments Sumatriptan Other (see Comments) 03/15/2023 [place] Oil Hives,Nausea,Vomitin g,Other (see Comments) Low 04/11/2017 [...] 60 MG CAPSULE DELAYED RELEASE Take by mouth daily. Active DULoxetine (CYMBALTA) [address] [...] MG TABLET DISPERSIBLE Take 4 mg by mouth every 8 hours as needed for Nausea - 1st line. 2 Active sucralfate (CARAFATE) 1 GM Tablet Take 1 g by mouth. 2 Active propranolol (INDERAL) 10 MG Tablet Take 10 mg by mouth daily. 2 Active busPIRone (BUSPAR) 15 MG Tablet Take 15 mg by mouth 2 times daily. 2 Active albuterol 108 (90 Base) MCG/ACT Aerosol Solution INHALE 1 PUFF BY MOUTH EVERY 4 HOURS NEEDED FOR SHORTNESS OF BREATH FOR WHEEZING 3 Active hyoscyamine (ANASPAZ, LEVSIN) 0.125 MG Tablet TAKE 1 TABLET BY MOUTH 4 TIMES DAILY 3 Active Vraylar 6 MG Capsule Take 6 mg by mouth daily. 4 Active Rizatriptan Benzoate 5 MG Tablet TAKE 1 TABLET AT ONSET OF HEADACHE, IF NO RELIEF MAY REPEAT 1 TABLET AFTER AT LEAST 2 HOURS. MAX OF 3 PER 24 HOUR 4 Active prazosin (MINIPRESS) 2 MG Capsule TAKE 1 CAPSULE BY MOUTH AT BEDTIME 4 Active folic acid (FOLVITE) 1 MG Tablet Take 1 Tablet by mouth daily. 30 Tablet 3 4 Active aspirin-acetami nophen-caffeine (EXCEDRIN) 250-250-65 MG Tablet Take 1 Tablet by mouth. Instructed to hold for 7 days prior to 08/03/25 surgery. 7 Active betamethasone valerate (VALISONE) 0.1 % Cream 2 Active bisacodyl 10 MG Suppository 10 mg by Rectal route. 4 Active carvedilol (COREG) 6.25 MG Tablet Take 6.25 mg by mouth daily. 5 Active Continuous Glucose Sensor (Dexcom G7 Sensor) [facility] [place] 1 SENSOR TOPICALLY, CHANGE AND REPLACE [...] by Subcutaneous route. 4 Active nystatin (MYCOSTATIN) 365149 UNIT/GM Cream Apply. 5 Active pantoprazole (PROTONIX) 40 MG Tablet Delayed Response Take 1 Tablet by mouth daily. 4 Active polyethylene glycol (GLYCOLAX, MIRALAX) 17 g Pack Take 17 g by mouth daily as needed for Constipation - 1st line. 4 Active Tirzepatide 10 MG/0.5ML Solution Auto-injector 10 mg by Subcutaneous route once a week. 4 Active fluticasone (FLONASE) 50 MCG/ACT Suspension 5 Active meclizine (ANTIVERT) 25 MG Tablet TAKE 1 TABLET BY MOUTH TWICE DAILY NEEDED FOR DIZZINESS FOR 7 DAYS 5 Active doxepin (SINEQUAN) 25 MG Capsule Take 25 mg by mouth. Active Mounjaro 12.5 MG/0.5ML Solution Auto-injectorIn dications:Type 2 Diabetes Mellitus 12.5 mg by Subcutaneous route once a week. Uses on Sundays or Mondays Instructed that she MUST hold for 7 days prior to 08/03/25 surgery. Indications: Type 2 Diabetes 5 Active midodrine (PROAMATINE) 5 MG Tablet Take 5 mg by mouth 3 times daily. 5 Active Active Problems Problem Noted Date Diagnosed Date Iron deficiency 05/16/2022 Anemia due to multiple mechanisms 02/06/2018 Thrombocytopenia 02/06/2018 Mediastinal lymphadenopathy 05/30/2017 Abdominal lymphadenopathy 04/11/2017 Hepatosplenomegaly 04/11/2017 Liver lesion 04/11/2017 Encounters Date Type Department Care Team Description 07/19/2025 10:00 AM CDT Clinical Support [facility] [address] [place] [address] [facility] UTI symptoms (Primary Dx) Discharge Disposition: Discharged to home or Selfcare 07/19/2025 Travel 07/15/2025 1:15 PM CDT Lab [facility] [address] [phone] Lab, [facility] Thrombocytopenia; Leukopenia, unspecified type; Iron deficiency; 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; B12 deficiency 07/15/2025 1:00 PM CDT Office Visit [facility] [address] [phone] Anne Rodriguez APRN, [place] Thrombocytopenia (Primary Dx); Leukopenia, unspecified type; Iron deficiency; 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; B12 deficiency 07/15/2025 Travel 06/30/2025 9:30 AM CDT Clinical Support [facility] [address] [place] [address] [facility] Kidney stone (Primary Dx) Discharge Disposition: Discharged to home or Selfcare 06/30/2025 Travel 06/28/2025 Telephone [facility] [place] [address] Rubens Claros MD Surgery 06/15/2025 Telephone [facility] [place] [address] Rubens Claros MD Care Management 06/11/2025 3:00 PM CDT Office [facility] [facility] [place] [address] Rubens Claros MD Kidney stone (Primary Dx) Discharge Disposition: Discharged to home or Selfcare 06/09/2025 Travel 04/29/2025 9:30 AM CDT Lab [facility] [address] [address] Lab, [facility] Thrombocytopenia (HCC); Anemia due to multiple mechanisms; Mediastinal lymphadenopathy 04/29/2025 Travel from Last 3 Months Family History [...] Sign Reading Time Taken Comments Blood Pressure 112/82 07/15/2025 12:58 PM CDT Pulse 76 07/15/2025 12:58 PM CDT Temperature 36.8 C (98.3 F) 07/15/2025 12:58 PM CDT Respiratory Rate 16 07/19/2025 10:14 AM CDT Oxygen Saturation 99% 07/15/2025 12:58 PM CDT Inhaled Oxygen Concentration - - Weight 70.3 kg (155 lb) 07/19/2025 10:14 AM CDT Height 154.9 cm (5' 1) 07/19/2025 10:14 AM CDT Body Mass Index 29.29 07/19/2025 10:14 AM CDT Plan of Treatment Upcoming Encounters Date Type Department Care Team (Latest Contact Info) Description 07/28/2025 4:00 PM CDT [facility] [address] [place] [address] Rubens Claros MD [address] [address] Discharge Disposition: Discharged to home or Selfcare 08/03/2025 2:40 PM CDT [facility] [address] [place] [address] Rubens [facility]os MD [facility] [address] [address] 08/03/2025 2:40 PM CDT - 08/03/2025 4:40 PM CDT [facility] [address] [place] [address] Rubens Claros MD #[address] [address] CYSTOSCOPY, RIGHT URETEROSCOPY WITH HOLMIUM LASER LITHOTRIPSY 10/21/2025 1:00 PM CAMP MAINTENANCE SUPERVISOR Office Visit [facility] [address] [address] Ric Malik MD [address] [place] [address] [place] [facility] [address] [id number] Scheduled Procedures Name Priority Associated Diagnoses Date/Ti me CYSTOSCOPY URETEROSCOPY WITH HOLMIUM LASER RIGHT NEPHROLITHIASIS 08/03/2025 2:40 PM CDT CYSTOSCOPY STENT INSERTION (SINGLE / BILATERAL) RIGHT NEPHROLITHIASIS 08/03/2025 2:40 PM CDT Health Maintenance Due Date Last Done Comments Mammogram 1978 TdaP Immunization 1978 Pneumococcal Immunization Combined (1 of 2 - PCV) 1997 Discussion re Starting/Frequency of Mammograms 2018 Cologuard 2023 Immunochemical Fecal Occult Blood 2023 Influenza Immunization (#1) 2025 11/0 06/2022, 07/15/2020, 09/14/2019 SARS-COV-2 Immunization ( season) 2025 Colonoscopy 08/27/2032 08/27/2022 Colorectal Cancer Screening 08/27/2032 [...] Priority Date/Time Associated Diagnosis Comments VITAMIN B12 [id number] [place] Routine 07/15/2025 1:13 PM CDT IRON AND TIBC [id number] [place] Routine 07/15/2025 1:13 PM CDT FOLATE [id number] [place] Routine 07/15/2025 1:13 PM CDT FERRITIN [id number] [place] Routine 07/15/2025 1: 13 PM CDT COMP. 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 B12 deficiency CULTURE, URINE Routine 06/30/2025 9:47 AM CDT Kidney stone POCT UA AUTOMATED W/O MICRO Routine 06/11/2025 3:07 PM CDT Kidney stone COMPLETE BLOOD COUNT (CBC) WITH DIFF Routine 04/29/2025 9:28 AM CDT Thrombocytopenia (HCC) Anemia due to multiple mechanisms Mediastinal lymphadenopathy from Last 3 Months Results * VITAMIN B12 [id number] [place] (07/15/2025 1:13 PM CDT) VITAMIN B12 1,012 232 - 1,245 PG/ML [facility] BIODIESEL PRODUCTION TECHNICIAN [facility] 07/15/2025 1:13 PM CDT Narrative [facility]ODIESEL [facility] - 07/16/2025 9:07 AM CDT TESTING PERFORMED AT: [] [facility], [address] [place], [address], PHONE: [phone], TRANSPORTATION ANALYST: DANNY CHRISTIAN, PHD Anne Rodriguez APRN, SAP BW ARCHITECT LAB SEND OUTS Final Result Performing Organization Address City/[facility]/ZIP Co de Phone Number CANCER BIODIESEL PRODUCTION TECHNICIAN [facility] Cancer Care [facility] [place] [address], * (ABNORMAL) IRON AND TIBC [id number] [place] (07/15/2025 1:13 PM CDT) Iron Bind.Cap.(TIBC) 291 250 - 450 UG/DL [facility] UIBC 253 131 - 425 UG/DL [facility] Iron, Serum 38 27 - 159 UG/DL [facility] Iron Saturation 13(L) 15 - 55 % [facility] BIODIESEL [facility]ODUCTION [facility] 07/15/2025 1:[address] [facility] - 07/16/2025 7:08 AM CDT TESTING PERFORMED AT: [] [facility], [address] [facility], [place], [address], PHONE: [phone], TRANSPORTATION ANALYST: DANNY CHRISTIAN, PHD Anne Rodriguez CARDIOLOGY SPECIALIST, SAP BW ARCHITECT LAB SEND OUTS Final Result Performing Organization Address City/[facility]/ZIP Co de Phone Number CANCER BIODIESEL PRODUCTION TECHNICIAN [facility] Cancer Care [facility] [place] [address], [place] [phone] * FOLATE [id number] [place] (07/15/2025 1:13 PM CDT) Folate (Folic Acid), Serum >20.0 >3.0 NG/ML [facility] Comment: A SERUM FOLATE CONCENTRATION OF LESS THAN 3.1 NG/ML IS CONSIDERED TO REPRESENT CLINICAL DEFICIENCY. 07/15/2025 1:[address] [facility] - 07/16/2025 9:07 AM CDT TESTING PERFORMED AT: [] [facility], [address] [place] [address], [address], PHONE: [phone], TRANSPORTATION ANALYST: DANNY CHRISTIAN, PHD Anne Rodriguez APRN, SAP BW ARCHITECT LAB SEND OUTS Final Result Performing Organization Address City/[facility]/ZIP Co de Phone Number CANCER BIODIESEL PRODUCTION TECHNICIAN [facility] Cancer Care [address] [place] [address], [place] [phone] * FERRITIN [id number] [place] (07/15/2025 1:13 PM CDT) Ferritin, Serum 54 15 - 150 NG/ML [facility] BIODIESEL [facility]ODUCTION [facility] 07/15/2025 1:[address] [facility] - 07/16/2025 1:08 PM CDT TESTING PERFORMED AT: [] [facility], [address] [place] [address], [address], PHONE: [phone], TRANSPORTATION ANALYST: DANNY CHRISTIAN, PHD Anne Rodriguez APRN, SAP BW ARCHITECT LAB SEND OUTS Final Result [facility] Cancer Care [address] [place] [address], * (ABNORMAL) COMP. METABOLIC PANEL [id number] [place] (07/15/2025 1:13 PM CDT) GLUCOSE, SERUM 116(H) 70 - 99 MG/DL [facility] BUN 16 6 - 24 MG/DL [facility] CREATININE, SERUM 0.93 0.57 - 1.00 MG/DL [facility] EGFR 77 >59 ML/MIN/1.7 3 [facility] BUN/CREATININE RATIO 17 9 - 23 [facility] SODIUM, SERUM 141 134 - 144 MMOL/L [facility] POTASSIUM, SERUM 3.4(L) 3.5 - 5.2 MMOL/L [facility] CHLORIDE, SERUM 108(H) 96 - 106 MMOL/L [facility] CARBON DIOXIDE, TOTAL 20 20 - 29 MMOL/L [facility] CALCIUM, SERUM 8.8 8.7 - 10.2 MG/DL [facility] PROTEIN, TOTAL, SERUM 5.8(L) 6.0 - 8.5 G/DL [facility] ALBUMIN, SERUM 3.8(L) 3.9 - 4.9 G/DL [facility] GLOBULIN, TOTAL 2.0 1.5 - 4.5 G/DL [facility] BILIRUBIN, TOTAL 0.6 0.0 - 1.2 MG/DL [facility] ALKALINE PHOSPHATASE, S 69 41 - 116 IU/L [facility] AST (SGOT) 32 0 - 40 IU/L [facility] ALT (SGPT) 21 0 - 32 IU/L [facility] 07/15/2025 1:13 PM CDT Narrative [facility] - 07/16/2025 7:08 AM CDT TESTING PERFORMED AT: [] [facility], [address] [place] [address], [place], [address], PHONE: [phone], TRANSPORTATION ANALYST: DANNY CHRISTIAN, PHD us Anne Rodriguez CARDIOLOGY SPECIALIST, SAP BW ARCHITECT LAB SEND OUTS Final Result [facility] BIODIESEL PRODUCTION TECHNICIAN [facility] [place] [address], [place] [phone] * (ABNORMAL) COMPLETE BLOOD COUNT (CBC) WITH DIFF (07/15/2025 1:13 PM CDT) Only the most recent of2 resultswithin the time period is included. WBC 2.6(L) 4.0 - 10.0 10*3/uL [facility] BIODIESEL PRODUCTION TECHNICIAN [facility] HGB 11.9 11.2 - 15.7 g/dL [facility] BIODIESEL PRODUCTION TECHNICIAN [facility] HCT 36.2 34.1 - 44.9 % [facility] BIODIESEL PRODUCTION TECHNICIAN [facility] PLT 50(L) 163 - 369 10*3/uL [facility] BIODIESEL PRODUCTION TECHNICIAN [facility] MPV 10.5 9.4 - 12.4 fL [facility] BIODIESEL PRODUCTION TECHNICIAN [facility] RBC 3.95 3.93 - 5.22 10*6/uL [facility] BIODIESEL PRODUCTION TECHNICIAN [facility] MCV 92 79 - 95 fL [facility] BIODIESEL PRODUCTION TECHNICIAN [facility] MCH 30.1 25.6 - 32.2 pg [facility] BIODIESEL PRODUCTION TECHNICIAN [facility] MCHC 32.9 32.2 - 36.5 g/dL [facility] BIODIESEL PRODUCTION TECHNICIAN [facility] RDW 14.6(H) 11.6 - 14.4 % [facility] BIODIESEL PRODUCTION TECHNICIAN [facility] Absolute Neutrophil Count 1,586 cells/uL [facility] Absolute Seg Count 1,586 1,440 - 6,600 cells/uL [facility] BIODIESEL PRODUCTION TECHNICIAN [facility] Absolute Lymph Count 832 760 - 4,000 cells/uL [facility] Absolute [place] Count 104(L) 160 - 1,200 cells/uL [facility] Absolute Eos Count 78 0 - 300 cells/uL [facility] BIODIESEL PRODUCTION TECHNICIAN [facility] Segmented Neutrophils 61 36 - 66 % [facility] BIODIESEL PRODUCTION TECHNICIAN [facility] Lymphocytes 32 19 - 40 % [facility] Monocytes 4 4 - 12 % [facility] Eosinophils 3 0 - 3 % [facility] WBC Estimate Low [facility] BIODIESEL PRODUCTION TECHNICIAN [facility] Platelet Estimate Low [facility] BIODIESEL PRODUCTION TECHNICIAN [facility] RBC Morphology Abnormal CANCE R BIODIESEL PRODUCTION TECHNICIAN [facility] Anisocytosis 1+ [facility] BIODIESEL PRODUCTION TECHNICIAN [facility] Large Platelets Present CAN ER BIODIESEL PRODUCTION TECHNICIAN [facility] Blood 07/15/2025 1:13 PM CDT Narrative [facility] BIODIESEL PRODUCTION TECHNICIAN [facility] - 07/15/2025 2:19 PM CDT Release to patient->Immediate us Anne Rodriguez APRN, SAP BW ARCHITECT HEMATOLOGY ORDERABLES Final Result [facility] BIODIESEL PRODUCTION TECHNICIAN [facility] [address] [place] [address], * CULTURE, URINE (06/30/2025 9:47 AM CDT) CULTURE RESULTS COAGULASE-NEGATIVE STAPHYLOCOCCUS, NOT STAPHYLOCOCCUS SAPROPHYTICUS 07/01/2025 8:42 PM CDT [facility] Comment:SENSITIVITY NOT PERF ORMED CULTURE RESULTS Also mixed growth of distal urethral contaminants 07/01/2025 8:42 PM CDT [facility] Culture URINE SPECIMEN OBTAINED BY CLEAN CATCH PROCEDURE / Unknown Non-Phlebotomy Collection / Unknown 06/30/2025 9:47 AM CDT 06/30/2025 9:47 AM CDT Rubens Patel MD MICROBIOLOGY - GENERAL ORDERAB LES Final Result Performing Organization Address City/[facility]/ZIP Co de Phone Number [facility] [address] [place] [address], * (ABNORMAL) POCT UA AUTOMATED W/O MICRO (06/11/2025 3:07 PM CDT) POC UA SPECIFIC GRAVITY 1.020 URINE PH 5.0 5.0 - 9.0 POC URINE LEUKOCYTES 75 /uL(A) Negative Dat/uL POC URINE NITRITE Negative Negative POC URINE PROTEIN 500 mg/dL(A) Negative mg/dL POC URINE GLUCOSE >1000 mg/dL(A) Negative, Norm mg/dL POC URINE KETONE 15 mg/dL(A) Negative mg/dL POC URINE UROBILINOGEN 1 E.U./dL (mg/dL) Norm, 0.2 E.U./dL (mg/dL), 1 E.U./dL (mg/dL) POC URINE BILIRUBIN 1 mg/dL(A) Negative mg/dL POC URINE BLOOD INSTRUMENT 250 Adam/uL(A) Negative Adam/uL POC URINE COLOR [place] POC URINE CLARITY Cloudy Urine 06/11/2025 3:07 PM CDT [facility] POINT OF CARE TESTING (MANUAL) Final Result from Last 3 Months Insurance MEDICAID [employer] Care Teams Fur Finisher Seamstress Relationship Specialty Start Date End Date Natacha Hoyt MD [address] [facility] [address] [place] [address] PCP - General Family Medicine 08/29/23 Ric Malik MD [address] [place] [address] Consulting Physician Oncology 05/22/22 Ric Malik MD [address] [place] [address] Consulting Physician Oncology 08/28/23 Rubens Claros MD #[address] [address] Consulting Physician Urology 06/07/25
--- OUTSIDE RECORDS SUMMARY | 2025-07-20 14:08 | XMS_ITS | Clinical Summary ---
Author Organization [facility] Address [address] [place] [address] Care Team Providers Care Supervisor Asbestos Removal Name Role Phone Sadia Morris NP Primary Care Provider + Allergies Active Allergy Reactions Criticality Noted Date Comments Sumatriptan Muscle pain,Other (See comments) Medium [place] Oil Hives Medium 02/13/2022 Medications cyclobenzaprine (FLEXERIL) [...] Type Department Care Team Description 05/20/2025 Documentation [facility] Physical Therapy [address] [place] [address] Quiana Campbell, PT from Last 3 Months Surgical History Surgery Date Site/Laterality Comments KNEE SURGERY CHOLECYSTECTOMY HYSTERECTOMY DILATION AND CURETTAGE OF UTERUS OVARIAN CYST REMOVAL ANKLE SURGERY LITHOTRIPSY CARPAL TUNNEL RELEASE ELBOW SURGERY Medical History Medical History Date Comments GERD (gastroesophageal reflux disease) Liver cirrhosis Hypertension Diabetes mellitus Migraines Hypercholesteremia Bipolar 2 disorder (HCC) Depression [...] on file Legal Sex Female 11:18 PM FLOORING MACHINE FEEDER Gender Identity Not on file Sexual Orientation Not on file Obstetrics History Last Filed Vital Signs Vital Sign Reading Time Taken Comments Blood Pressure 122/71 09/13/2024 3:03 PM FLOORING MACHINE FEEDER Pulse 64 09/13/2024 3:03 PM FLOORING MACHINE FEEDER Temperature 36.2 C (97.2 F) 09/13/2024 3:03 PM FLOORING MACHINE FEEDER Respiratory Rate 16 09/13/2024 3:03 PM FLOORING MACHINE FEEDER Oxygen Saturation 97% 09/13/2024 3:03 PM FLOORING MACHINE FEEDER Inhaled Oxygen Concentration - - Weight 90.3 kg (199 lb) 09/12/2024 2:18 AM FLOORING MACHINE FEEDER Height 157.5 cm (5' 2) 09/12/2024 2:18 AM FLOORING MACHINE FEEDER Body Mass Index 36.4 09/12/2024 2:18 AM FLOORING MACHINE FEEDER Plan of Treatment Health Maintenance Due Date [...] Comments HEMOGLOBIN A1C Routine 09/12/2024 4:58 AM FLOORING MACHINE FEEDER EGFR STAT 09/11/2024 11:22 PM FLOORING MACHINE FEEDER from Last 3 Months or Most Recently Relevant to Health Maintenance Results * Hemoglobin A1c (09/12/2024 4:58 AM FLOORING MACHINE FEEDER) Hgb A1C 5.4 4.0 - 5.6 % Estimated Average Glucose 108 mg/dL JUD[facility] THOM[facility] ([place]) Comment: The ADA recommends reporting an estimated Average Glucose (eAG) with all Hemoglobin A1c results using the equation derived from a study of 507 normal and diabetic adults. Minority populations were underrepresented and children were not included. (Diabetes Care 31:4612-5116, 2008). The eAG is not equivalent to a fasting glucose. Blood 09/12/2024 4:58 AM FLOORING MACHINE FEEDER 09/12/2024 5:07 AM FLOORING MACHINE FEEDER us Dionicio Levin MD LAB BLOOD ORDERABLES Final Resu lt Performing Organization Address City/[facility]/ZIP Co de Phone Number JUDITH THOMPSON ([place]) [address] [facility] [place] [address] * eGFR (09/11/2024 11:22 PM FLOORING MACHINE FEEDER) eGFR 69 >=60 mL/min/1. 73 m2 Comment: [...] reviewed 2021. Blood 09/11/2024 11:2 2 PM FLOORING MACHINE FEEDER 09/11/2024 11:22 PM FLOORING MACHINE FEEDER us Valdez Lee MD LAB BLOOD ORDERABLES Final R esult JUDITH THOMPSON ([place]) [address] [facility] [place] [address] from Last 3 Months or Most Recently Relevant to Health Maintenance Insurance [facility] Advance Directives For more information, please contact: [phone] * LIMITED - No CPR (Latest Code [...] 1:26 AM 09/12/2024 5:23 AM Care Teams Supervisor Asbestos Removal Relationship Specialty Start Date End Date Sadia Morris NP [facility] [place] [address] [place] [address] PCP - General Nurse Practitioner 02/28/24
--- OUTSIDE RECORDS SUMMARY | 2025-07-20 14:08 | XMS_ITS | Encounter Summary ---
Author Organization [facility] Address [address] [place] [address] Care Team Providers Care Tie Puller Name Role Phone Eber Sebastian MD Primary Care Provider Roxana Martins NP Primary Care Provider [phone] Natacha Hoyt MD Primary Care Provider Encounter Details Date Type Department Care Team (Late st Contact Info) Description 07/18/2020 Hospital Follow-up Call [facility] [place] [address] Rosi Aguilera, RN Social History Tobacco Use [...] CDT Gender Identity Female 12/01/2021 10:08 AM CIRCUS TRAIN SUPERVISOR Sexual Orientation Straight 12/01/2021 10 :08 AM CIRCUS TRAIN SUPERVISOR COVID-19 Exposure Response Date Recorded In the last month, have you been in contact with someone who was confirmed or suspected to have Coronavirus / COVID-19? No / Unsure 07/14/2020 4:18 PM CDT documented as of this encounter [...] Thompson RN Active documented in this encounter Plan [...] documented as of this encounter Care Teams Tie Puller Relationship Specialty Start Date End Date Eber Sebastian MD [address] [place] [address] PCP - General FAMILY PRACTICE 09/24/17 12/04/20 Roxana Martins NP [address] [place] [address] PCP - General NURSE PRACTITIONER 12/05/20 06/10/21 Natacha Hoyt MD [address] [place] [address] PCP - General FAMILY PRACTICE 06/11/21 documented as of this encounter
[2025-07-20 14:57] LABS: Add Urine Microscopic? YES; Appearance Urine Clear (Clear); Glucose Urine UA 2+ mg/dL (Negative); Leukocyte Esterase Ur Negative LEU/UL (Negative); Need Manual Microscopic Reviewed; Nitrate Urine Negative (Negative); Non Pathogenic Casts 0-2; Specific Grav Ur > 1.045 (1.001-1.035)
[2025-07-20] MEDS: DICYCLOMINE HCL 10 MG CAPSULE 20 MG PO (15:19)
== END 2025-07-20 15:27 | disposition home or self-care (01) ==
PROVIDERS: Emergency Provider Physician Assistant; PCP Family Medicine
DX: K52.9 Noninfective gastroenteritis and colitis, unspecified (principal); I10 Essential (primary) hypertension; E55.9 Vitamin D deficiency, unspecified; E11.69 Type 2 diabetes mellitus with other specified complication; E78.5 Hyperlipidemia, unspecified; I15.2 Hypertension secondary to endocrine disorders; K75.81 Nonalcoholic steatohepatitis (NASH); K74.60 Unspecified cirrhosis of liver; K58.2 Mixed irritable bowel syndrome; K21.9 Gastro-esophageal reflux disease without esophagitis; F31.81 Bipolar II disorder; F41.9 Anxiety disorder, unspecified; Z87.442 Personal history of urinary calculi; Z87.891 Personal history of nicotine dependence; Z90.49 Acquired absence of other specified parts of digestive tract; Z90.710 Acquired absence of both cervix and uterus; Z79.85 Long-term (current) use of injectable non-insulin antidiabetic drugs; Z79.899 Other long term (current) drug therapy; Z79.84 Long term (current) use of oral hypoglycemic drugs
CPT/HCPCS: 36415; 74177; 80053; 81001; 83690; 83735; 84484; 85025; 85055; 87086; 93005; 96365; 96375; 99284; A9270; J2270; J2405; J2470; J3475; J7030; Q9967

== ENCOUNTER 2025-08-14 20:24 | Emergency (ER) | payer OTHER, SELFPAY ==
--- OUTSIDE RECORDS SUMMARY | 2025-05-25 06:40 | XMS_ITS ---
Author Organization [facility] Address [address] [place] [address] Care Team Providers Care Supervisor Rides Name Role Phone Allie Lopez Primary Care Provider REASON FOR VISIT 3 Month Psych F/U & Med Refill Encounters Encounter Location Date Provider Diagnosis [facility] [address] [address] 05/25/2025 Allie Lopez Plan Of Treatment No Information Progress Notes * Beulah MACHADODOB:[birth year] (44 yo F)Acc No.[id number]:05/25/2025 UNLOCKED PROGRESS NOTE Patient: Eduar FERNANDEZ Beulah Provider: SLOAN Arias :1980 A ge:44 Y S ex:Female Date:05/25/2025 Address:[address] , [place], [place] Subjective: * Chief Complaints: * 1 . 3 Month Psych F/U & Med Refill. * Medical History: Objective: * Vitals: Assessment: Plan: * Treatment: * * Electronic signature of Allie Lopez , [id number] on 08/14/2025 at 09:50 PM CDT Sign off status: Pending * Provider: SLOAN Arias Date: 0 05/25/2025 Generated for Prema ng/Famarianneg/eTransmitting on: 10/14/2024 09:50 PM CDT
--- NOTE | ~2025-08-14 | CT_ITS ---
EXAMINATION: CT abdomen pelvis w con DATE: 08/15/2025 00:13 INDICATION: Upper abdominal pain. TECHNIQUE: Computed tomography (CT) of the abdomen and pelvis was performed with 100 mL Omnipaque 350 intravenous contrast. Automated exposure control and iterative reconstruction technique were employed. The dose-length product was 1045.52 mGy-cm. COMPARISON: CT abdomen and pelvis 07/20/2025 FINDINGS: The visualized portions of the lung bases demonstrate mild atelectasis. No pleural effusion. There is left atrial enlargement of the heart. No pericardial effusion. The liver demonstrates surface nodularity, consistent with cirrhosis. There are cysts in the liver measuring up to 11 mm. There is moderate splenomegaly. There are changes of cholecystectomy. The pancreas, adrenal glands, and right kidney are normal. There is a 2.9 cm cyst in left kidney. There is a right internal ureteral stent in expected position. There are no dilated loops of bowel. The appendix is normal. There is wall thickening of small bowel. There is a large volume of ascites. Body wall edema is noted. There is moderate thoracic and lumbar spondylosis. There is mild chronic anterior wedging of multiple vertebral bodies. IMPRESSION: 1. Cirrhosis of the liver with portal venous hypertension. 2. Large volume of ascites. 3. Wall thickening of small bowel, which may be interstitial edema or less likely enteritis. Reviewed, dictated and finalized at location [facility]. [facility] IMPRESSION: 1. Cirrhosis of the liver with portal venous hypertension. 2. Large volume of ascites. 3. Wall thickening of small bowel, which may be interstitial edema or less like ly enteritis.
[2025-08-14 20:35] VITALS: BP 94/64; PULSE 78; RESP 16; TEMP 36.4; O2SAT 100
--- OUTSIDE RECORDS SUMMARY | 2025-08-14 21:50 | XMS_ITS | Data Portability ---
Author Organization [facility] [employer], Main Office Address [address] [place] [address] Assessment Encounter Date Assessment Date Assessment LastModified by Organization Details LastModified Time 06/04/2023 06/04/2023 This note is dictated and transcribed by [employer]. Sr. Merchandise Planner variances may occur. Despite proofreading, typographical errors may occur. [email or web address] Not available 06/04/2023 12:39:36 07/16/2023 07/16/2023 This note is dictated and transcribed by [employer]. Sr. Merchandise Planner variances may occur. Despite proofreading, typographical errors [...] tendons and PT tendon 2023 024 [email or web address] [facility] ([facility]), [address] [place], [address], 4 09:17:43 XR, foot, 3 or more view 2023 024 [email or web address] [facility] ([facility]), [address] [place], [address], 4 09:17:43 Medication Orders None recorded. Patient TargetsNo targets recorded. Patient Instructions Encounter Date Encounter Id Patient Instructions Last Modified By Organization Details Last Modified Time 06/04/2023 [id number] peroneal tendon strain: rehab exercises Not available 06/04/2023 12:39:37 Reason for Referral Physical Therapist Referral for Peroneal tendinitis of right lower limb Referring Physician: Joo Kelly, Podiatric Surgery, Encounter Date: 07/16/2023 Results Created Date Observation Date Name Description Value Unit Range Abnormal Flag Note LastModifiedBy Organization Detail LastModifiedTime 12/26/1912/25/2022 XR, foot, 3 or more view No observ ation record ed. [address], [place], [address], 12/26/2022 15:46:22 12/27/19 23 12/25/2022 XR, foot, 3 or more view No observ ation record ed. [address], [place], [address], 12/26/2022 15:46:57 Result Notes None recorded. Problems Name Problem SNOMED Code Status Onset Date Resolution Date Notes Provider Name and Address Organization Details Recorded Time Pain in right foot 7880832883377 07 Active 2022 Not Available [facility] 01:48:40 Peroneal tendinitis of right lower limb 1944572284508 09 Active 2022 Joo Kelly DPM [address], [place], [address] , [employer] 12:38:16 Problem Notes None recorded. Procedures Surgical History Date Name Laterality Status Provider Name and Address Organization Details Recorded Time 06/04/20 Joint Injection-Podiatry 6217 completed Joo Kelly DPM [address], [address], [place], [address], [employer] 06/04/2023 13:36:39 Removal of ovarian cyst(s) completed Not Available [facility] 12/13/2022 01:48:26 Cholecystectomy completed Not Available [facility] 12/13/2022 01:48:26 Ankle Surgery completed Not Available [facility] 12/13/2022 01:48:26 Dilation and curettage completed Not Available [facility] 12/13/2022 01:48:26 Hysterectomy completed Not Available [facility] 12/13/2022 01:48:26 Knee arthroscopy/surger y completed Not Available [facility] 12/13/2022 01:48:26 Imaging Results None recorded. Procedure Notes None recorded. Medical Equipment None Reported. Allergies Allergen ID Allergen Name Allergen Category Reaction Reaction Severity Criticality Documentation Date Start Date Code Code System Note Provider Name and Address Organization Details Recorded Time 23329 sunflower oil food,medi cation Not available Not available Not available 12/13/2022 42913 RxNorm Not Available [facility] 01:49:15 Medications Name Sig Start Date Stop [...] Not Available No t Available Dexcom G6 Head Of Digital USE DIRECTED active Not Available Not Available [...] 98 % 98 % 129/83 mm[Hg] Jossie [facility] [employer] [facility] [employer] [facility] 4 10:43:59 Date Recorded Body mass index (BMI) Body height Oxygen saturation Oxygen saturation in Arterial blood by Pulse oximetry Heart rate Respiratory rate Body weight Systolic And Diastolic Provider Name and Address Organization Details Last Updated DateTime 3 45.7 kg/m2 157.48 cm 98 % 98 % 72 /min 14 /min 791090. 09 g 93/56 mm[Hg] Not Available [facility] 3 01:48:30 Date Recorded Body height Heart rate Respiratory rate Oxygen saturation Oxygen saturation in Arterial blood by Pulse oximetry Systolic And Diastolic Provider Name and Address Organization Details Last Updated DateTime 3 157.48 cm 83 /min 14 /min 99 % 99 % 96/64 mm[Hg] Jossie [facility] [employer] [facility] [employer] [facility] 3 09:08:57 Date Recorded Body height Heart rate Respiratory rate Oxygen saturation Oxygen saturation in Arterial blood by Pulse oximetry Systolic And Diastolic Provider Name and Address Organization Details Last Updated DateTime 3 157.48 cm 93 /min 14 /min 98 % 98 % 103/65 mm[Hg] Jossie [facility] [employer] [facility] [employer] [facility] 3 12:33:43 Date Recorded Body height Heart rate Respiratory rate Oxygen saturation Oxygen saturation in Arterial blood by Pulse oximetry Systolic And Diastolic Provider Name and Address Organization Details Last Updated DateTime 3 157.48 cm 78 /min 14 /min 98 % 98 % 106/77 mm[Hg] Jossie [facility] [employer] [facility] [employer] [facility] 3 11:29:44 Social History Question Answer Notes LastModified by Organizat ion Details LastModified Time Tobacco Smoking Status Former Smoker Not Available [facility] 12/13/2022 01:48:11 If You Are , What Was Your Level Of Alcohol Consumption Prior To ? None [id number] Information not available 12/13/2022 What Is Your Level Of Caffeine Consumption? Occasional [id number] Information not available 12/13/2022 What Was The Date Of Your Most Recent Tobacco Screening? 11/29/2022 [id number] Information not available 12/13/2022 Has Tobacco Cessation Counseling Been Provided? No [id number] 026 Information not available 12/13/2022 Sex: Unknown Functional Status Question Answer Note LastModified by Organizat ion Details LastModified Time Do you use any illicit or recreational drugs? No [id number] 26 Information not available 12/13/2022 Do you or have you ever used any other forms of tobacco or nicotine? No [id number] 26 Information not available 12/13/2022 What is your level of alcohol consumption? None [id number].[id number] 26 Information not available 12/13/2022 Mental Status None recorded. Family History Relationship Description Onset Age of this Age Resolved Age Notes LastModified by Organization Details LastModified Time Father Diabetes mellitus [id number] Not available 12/13/2022 01:48:27 Father Family history of stroke MIGRATION.851 [id number] Not available 12/13/2022 01:48:27 Father Hypertensive disorder [id number].642 [id number] Not available 12/13/2022 01:48:27 Unspecified Relation Diabetes mellitus [id number].469 [id number] Not available 12/13/2022 01:48:27 Unspecified Relation Hypertensive disorder [id number].654 [id number] Not available 12/13/2022 01:48:27 Sister Diabetes mellitus MIGRATION.314 [id number] Not available 12/13/2022 01:48:27 Mother Arthritis MIGRATION.145 [id number] Not available 12/13/2022 01:48:27 Mother Hypertensive disorder MIGRATION.307 [id number] Not available 12/13/2022 01:48:27 Mother Heart disease MIGRATION.979 [id number] Not available 12/13/2022 01:48:27 Paternal Grandfather Heart disease MIGRATION.684 [id number] Not available 12/13/2022 01:48:27 Maternal Grandfather Heart disease MIGRATION.210 [id number] Not available 12/13/2022 01:48:27 Medical History Condition [...] ICD10 Code Diagnosis IMO Codes Diagnosis Note [id number] Joo Kelly DPM [facility] [place] [address] [address] 11/29/2022 00:00:00 12/03/2022 08:32:09 [id number] Joo Kelly DPM [facility] [place] [address] [address] 12/27/2022 09:01:57 12/27/2022 13:58:05 Pain in right foot 3590192113 70703 M79.671 recommend custom orthotics and supportive shoe gearRice therapyRx physical therapy todayIf fails physical therapy will recommend follow-up with MRI [id number] [facility] [place] [address] [place] [address] 06/04/2023 12:28:41 06/04/2023 13:47:55 Pain in right foot 1081294457 07070 M79.671 Did not obtain orthoticsd id not did go to physical therapyrec ommend supportive shoe gear Peroneal t endinitis of right lower limb 5706842623 62220 M76.71 patient refuses physical therapyric e therapyste roid injection along peroneal tendon at the fibular groove within the tendon sheathcam boot therapyfol low-up in 1 month [id number] [facility] [place] [address] [place] [phone] 07/16/2023 11:22:52 07/16/2023 14:29:24 Peroneal tendinitis of right lower limb 3421728773 65102 M76.71 patient accepts physical therapy, todayrice therapyste roid injection no significan t leg- no signs of infectionc am boot therapy, continuefo llow-up in 1-2 months [id number] Joo Kelly DPM [facility] [place] [address] [place] [phone] 10/22/2023 10:39:59 10/22/2023 14:50:07 Peroneal tendinitis of right lower limb 0565237909 15931 M76.71 patient accepts physical therapy, todaywent to 3-4 sessions of therapy and stoppedric e therapyste roid injection no significan t leg- no signs of infectionc am boot therapy, continuefo llow-up in 1-2 months Pain in right foot 37914 55797 42230 M79.671 new pain now to the medial subtalar joint areaprevio us coalition resection Health Concerns Section Related Observation LastModified by Organization Detai ls LastModified Time None Recorded Concern Status LastModified by Organization Details LastModified Time None Recorded Advance Directives Directive None Recorded Payers Insurance Date Sequence Insurance Name Policy Number Policy Webb Covered Member ID Webb Member ID Guarantor Name 11/02/2023 1 [facility] - DOS ON OR AFTER 21 (MEDICAID REPLACEMENT - HMO) Beulah Fung [id number] Beulah Fung Notes Date Note Type Note [...] other pedal complaints. Joo Kelly, [address] [facility], [facility] [address], [place], [address], [facility] [employer] 12/27/2022 10:16:24 06/04/2023 text/html . Patient is [...] Kelly DPM [address], [address], [place], [address], [employer] 06/04/2023 13:42:19 07/16/2023 text/html . Patient is [...] Kelly DPM [address], [address], [place], [address], [employer] 07/16/2023 14:08:25 10/22/2023 text/html . Patient is [...] complaints. Joo Kelly DPM [address] [facility] [address], [place], [address], [place] [facility] 10/22/2023 14:07:05 OBGyn Episode No OBEpisode recorded.
--- OUTSIDE RECORDS SUMMARY | 2025-08-14 21:50 | XMS_ITS | Encounter Summary ---
Author Organization [facility] Address [address] [place] [place] [address] Phone Care Team Providers Care Vp Home Health Name Role Phone Ric Malik MD Unavailable [phone] Ric Malik MD Unavailable [phone] Natacha Hoyt MD Primary Care Provider Rubens Claros MD Unavailable [phone] Encounter Details Date Type Department Care Team (Late st Contact Info) Description 07/28/2025 Results Follow-Up [facility] [address] [place] [id number] Rubens Claros MD [address] [address] [address] UROGRAPHY WO/W CONTRAST Social History Tobacco Use Types Packs/Day Years [...] on file documented as of this encounter Progress Notes * Noni Bang - 07/29/2025 10:29 AM CDT Pt states they are aware of the Cirrhosis but not of the fluid on her belly. She is going to reach out to her pcp. * Rubens Claros MD - 07/28/2025 10:28 PM CDT Can you please let the patient know CT shows a RIGHT sided stone. Please schedule her for R URS/LL/stent placement. S/f 1.5 hours, 2g cefazolin, UCX 2 weeks prior to OR. Also it shows c/f liver cirrhosis and sig fluid in her belly. She needs to see PMD for this if theyare not aware. 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 PROJECT LEAD Procedure Visit [facility] [address] [place] [address] Rubens [facility] [facility] [address] [place] [address] 10/21/2025 1:00 PM MARKETING PROJECT LEAD Office Visit [facility] [address] [address] Ric Malik MD [facility] [facility] [address] [place] [address] documented as of this encounter Visit Diagnoses Not on filedocumented in this encounter Additional Health Concerns Assessment Noted Time PHQ-9 Depression Total Score: 0 05/19/20 20 2:36 PM CDT documented as of this encounter Care Teams Vp Home Health Relationship Specialty Start Date End Date Natacha Hoyt MD [address] [facility] [address] [place] [address] PCP - General Family Medicine 08/29/23 Ric Malik MD [address] [place] [address] Consulting Physician Oncology 05/22/22 Ric Malik MD [address] [place] [address] Consulting Physician Oncology 08/28/23 Rubens Claros MD [address] [address] Consulting Physician Urology 06/07/25 documented as of this encounter
--- OUTSIDE RECORDS SUMMARY | 2025-08-14 21:50 | XMS_ITS | Clinical Summary ---
Author Organization [facility] Granular Address [address] [place] [address] Care Team Providers Care Ultrasonic Hand Solderer Name Role Phone Sadia Morris Unavailable Sabine Parker WATCH LEADER-RECRUITING COORDINATOR Primary Care Provider Source Comments [facility] Granular,non-owned Affiliates and Associated Physician Practices is amultiple site organization consisting of ambulatory clinics and hospital sitesin [place], [place], [place] and [place]. This disclosure is being madepursuant to the Care Everywhere program and may not contain all information available regarding this patient. Last updated 18.[facility]ular Allergies Active Allergy Reactions Criticality Noted Date Comments Sumatriptan Myalgias 03/15/2023 Sumatriptan Headache 10/07/2024 Rush Oil Rash,Itching,Skin Reactions Medium 08/01/2017 actual sunflowers themselves Rush Oil Nausea and/or Vomiting 10/07/2024 Medications * [...] Itching, Allergies or Insomnia 08/01/20 17 Active DULoxetine (CYMBALTA) 30 MG capsule Take 1 (one) capsule by mouth 2 times daily 02/08/20 Active BD VEO INSULIN SYRINGE U/F 31G X 15/64 1 ML syringes USE DIRECTED TWICE DAILY WITH INSULIN 02/09/20 Active Dexlansoprazol e (DEXILANT PO) Take 60 mg by mouth once daily Active hydrOXYzine pamoate (Vistaril) 25 MG capsule Take 1 (one) capsule by mouth 4 times daily as needed Active Glucagon 3 MG/DOSE POWD [place] 3 mg into the nose as needed (hypoglycemia) Active clotrimazole (Lotrimin AF) 1 % cream Apply 1 applicatorful to affected area 2 times daily as needed Active betamethasone valerate (Valisone) 0.1 % cream 01/25/20 Active topiramate (Topamax) 200 MG tablet Take 1 (one) tablet by mouth once daily 07/29/20 Active doxepin (SINEquan) 10 MG capsule Take [...] Itching 30 tablet 10/10/20 24 Active ondansetron, disintegrating , (Zofran ODT) 4 MG [...] at bedtime 30 capsule 10/10/20 24 Active polyethylene glycol 3350 (Miralax) 17 g packet Take 17 (seventeen) g by mouth once daily as needed for Constipation 30 packet 10/10/20 24 Active pantoprazole EC (Protonix) 40 MG tablet Take 1 (one) tablet by mouth once daily 30 tablet 10/10/20 24 Active Ferrous Sulfate (IRON PO) Active Continuous Glucose Sensor (Dexcom G7 Sensor) [facility] APPLY 1 SENSOR TOPICALLY, CHANGE AND REPLACE EVERY 10 DAYS. USE TO MONITOR GLUCOSE. 09/01/20 24 Active nystatin (Mycostatin) 447309 UNIT/GM cream Apply to affected area 2 times daily 11/24/19 25 Active rizatriptan (Maxalt) 5 MG tablet Take 1 (one) tablet by mouth once 11/20/19 25 Active folic acid (Folvite) 1 MG tablet Take 1 (one) tablet by mouth once daily 30 tablet 2 5 12:18 PM CDT 06/19/20 25 Active midodrine (Proamatine) 5 MG tablet Take 1 (one) tablet by mouth 3 times daily before meals. Please hold if your blood pressure is greater than 140/90 90 tablet 2 5 12:18 PM CDT 06/18/20 25 Active empagliflozin (Jardiance) 25 MG tablet Take 1 (one) tablet by mouth once daily Active furosemide (Lasix) 20 MG tablet Take 1 (one) tablet by mouth once daily 30 tablet 08/02/20 25 Active spironolactone (Aldactone) 50 MG tablet Take 1 (one) tablet by mouth once daily 30 tablet 08/02/20 25 Active insulin NPH (HumuLIN N; NovoLIN N) vial Inject 70 (seventy) Units subcutaneously 3 times daily 025 Discontin ued(List Clean-Up) albuterol HFA (Proventil; Ventolin; Proair) 108 (90 Base) MCG/ACT inhaler Inhale 1 (one) puff by mouth every 6 hours as needed for Wheezing or Shortness of Breath 03/08/20 21 025 Discontin ued(List Clean-Up) insulin NPH pen Inject 30 (thirty) Units subcutaneously 2 times daily, before breakfast and supper 3 mL 10/10/20 24 025 Discontin ued(List Clean-Up) Active Problems Problem Noted Date Diagnosed Date Colitis 07/31/2025 Assessment & Plan (07/31/2025 6:15 PM CDT): -Patient has been having persistent diffuse abdominal pain over the last 2-3 weeks -Presented to OSH at that time where CT showed colitis, discharged with 2 week course of Cephalexin -Recently completed course of ABX, had improvement in symptoms but acute worsening in the last 3-4d -07/30 CTAP shows -Mild bowel wall thickening of the ascending and transverse colon most likely representing portal hypertensive colopathy. Evaluation of the bowel wall thickening and adjacent inflammatory changes is limited in the presence of ascites Plan: - Aldactone 50 mg started - Outpatient colonoscopy - Will order fecal calprotectin, ESR/CRP, ASCA, and p-ANCA Hypokalemia 07/30/2025 Other ascites 07/30/2025 Assessment & Plan (07/31/2025 6:15 PM CDT): MELD 3.0: 12 at 07/31/2025 4:21 AM MELD-Na: 10 at 07/31/2025 4:21 AM Calculated from: Serum Creatinine: 0.72 mg/dL (Using min of 1 mg/dL) at 07/31/2025 4:21 AM Serum Sodium: 142 mmol/L (Using max of 137 mmol/L) at 07/31/2025 4:21 AM Total Bilirubin: 0.6 mg/dL (Using min of 1 mg/dL) at 07/31/2025 4:21 AM Serum Albumin: 2.8 g/dL at 07/31/2025 4:21 AM INR(ratio): 1.4 at 07/30/2025 7:21 PM Age at listing (hypothetical): 44 years Sex: Female at 07/31/2025 4:21 AM - Etiology: MASLD - Primary 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, follows with [facility] for hepatology - Ascites: Not on home diuretics, got diag para 07/30 - EV: Known varices, Last EGD 06/15/25. Home BB Carvedilol 6.25 BID. Needs repeat EGD in roughly 09/2025 per last EGD note - HE: No hx, ANOx4, no asterixis, not on lactulose/rifaximin - HCC: Last MRI 03/22/25 showed no suspicion lesions so will return to US (next 10/07), of note CT from [facility] admission significant for 1.1 cm hypodense lesion in the right hepatic lobe inferiorly, unchanged in size, potentially a cyst - Transplant: MELD <14, but not drinking alcohol - Hx Spontaneous Bacterial Peritonitis: no, not on PPX, diag para studies pending - Evidence of hepatorenal syndrome/YANIQUE currently: No, Cr at baseline -Diagnositic paracentesis 07/30, PMN <250 PLAN: - Low sodium diet. - Received 1 dose of CTX in ED; will hold off on Albumin and further CTX given fluid studies not c/w SBP - Discontinue coreg - no signs of EV bleed - LVP deferred as only a moderate amount of ascites is present - Aldactone 50 mg started for ascites - Restart home Midodrine 5mg TID Right lower quadrant abdominal pain 07/30/2025 Assessment & Plan (07/31/2025 6:15 PM CDT): -Patient has been having persistent diffuse abdominal pain over the last 2-3 weeks -Presented to OSH at that time where CT showed colitis, discharged with 2 week course of Cephalexin -Recently completed course of ABX, had improvement in symptoms but acute worsening in the last 3-4d -07/30 CTAP shows -Mild bowel wall thickening of the ascending and transverse colon most likely representing portal hypertensive colopathy. Evaluation of the bowel wall thickening and adjacent inflammatory changes is limited in the presence of ascites Plan: - Aldactone 50 mg started - Outpatient colonoscopy - Will order fecal calprotectin, ESR/CRP, ASCA, and p-ANCA Idiopathic hypotension 06/18/2025 Assessment & Plan (06/18/2025 [...] last seen 06/11/[address] Claros at [facility] w/ plan for ureteroscopy +/- stent [...] last seen 06/11/[address] Claros at [facility] w/ plan for ureteroscopy +/- stent [...] Gastro-esophageal reflux disease without esophag itis 11/16/2017 Cirrhosis 11/16/2017 Overview (01/13/2018): Liver biopsy performed during cholecystectomy noted evidence of steatohepatitis with bridging fibrosis. 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, follows with [facility] for hepatology - Ascites: Not on home diuretics, got diag para 07/30 - EV: Known varices, Last EGD 06/15/25. Home BB Carvedilol 6.25 BID. Needs repeat EGD in roughly 09/2025 per last EGD note - HE: No hx, ANOx4, no asterixis, not on lactulose/rifaximin - HCC: Last MRI 03/22/25 showed no suspicion lesions so will return to US (next 10/07), of note CT from [facility] admission significant for 1.1 cm hypodense lesion in the right hepatic lobe inferiorly, unchanged in size, potentially a cyst - Transplant: MELD <14, but not drinking alcohol - Hx Spontaneous Bacterial Peritonitis: no, not on PPX, diag para studies pending - Evidence of hepatorenal syndrome/YANIQUE currently: No, Cr at baseline -Diagnositic paracentesis 07/30, PMN <250 PLAN: - Low sodium diet. - Received 1 dose of CTX in ED; will hold off on Albumin and further CTX given fluid studies not c/w SBP - Discontinue coreg - no signs of EV bleed - LVP deferred as only a moderate amount of ascites is present - Aldactone 50 mg started for ascites - Restart home Midodrine 5mg TID Hyperlipidemia 11/16/2017 Type 2 diabetes mellitus without complications 0 11/16/2017 Overview (07/14/2025): IMO 01/13/2025 IMO 07/14/2025 Resolved Problems Problem Noted Date Diagnosed Date Resolved Date Shortness of breath 07/30/2025 07/31/20 25 Acute gastrointestinal bleeding 10/06/2024 12/15/2024 Hepatic cirrhosis, unspecifi ed hepatic cirrhosis type, unspecified whether ascites present 03/27/2022 05/31/2022 Gastrointestinal hemorrhage, unspecified gastrointestinal hemorrhage type 03/27/2022 025 Cirrhosis of liver 11/16/2017 Overview (01/13/2018): Liver biopsy performed during cholecystectomy noted evidence of steatohepatitis with bridging fibrosis. Right upper quadrant pain 08/01/2017 Encounters Date Type Department Care Team Description 08/09/2025 11:49 AM CDT Anesthesia Event [facility] [address] [place] [address] Zen Anand DO 08/09/2025 10:30 AM CDT - 08/09/2025 11:00 AM CDT Surgery [facility] [address] [place] [address] Salomon Sapp MD EGD--w/ [facility] 08/09/2025 9:09 AM CDT - 08/09/2025 1:04 PM CDT Hospital Encounter [facility] [address] [place] [address] Salomon Sapp MD Surgery General Discharge Disposition: Home or Self Care 08/09/2025 Travel 08/03/2025 Telephone Transitional Care at [address] [address] Nicci Conklin, cardiac care unit nurse 08/02/2025 Telephone Transitional Care at [address] [place] [address] Carrie Rivero RN Transitional Care 07/30/2025 4:18 PM CDT - 08/01/2025 3:47 PM CDT Hospital Encounter [facility] Early Admission Unit [address] [place] [address] Florencio Crum, Terrence Hinds MD Gastroenterology Discharge Disposition: Home or Self Care 07/30/2025 Travel 07/29/2025 Telephone [facility] [address] [facility], [place] [address] Salomon Sapp MD Follow-up; Results 07/26/2025 Patient Outreach [facility] [address] [place] [address] Marguerite Clemens RN 07/06/2025 Travel 06/24/2025 Results Follow-Up [facility] AC[facility] [address] [place] [phone] Salomon Sapp MD 06/15/2025 4:28 PM CDT - 06/15/2025 4:58 PM CDT Surgery [facility] [address] [place] [phone] Susanna Richter DO EGD 06/15/2025 3:24 PM CDT Anesthesia Event [facility] [address] [place] [phone] Ninfa Cruz MD 06/14/2025 7:56 PM CDT - 06/18/2025 1:48 PM CDT Hospital Encounter [facility] [address] [place] [address] Mukul Dubon MD Befeler, Alex S, MD Elbeshbeshy, Hany Ahmed, MD Gastroenterology Discharge Disposition: Home or Self Care 06/14/2025 Travel from Last 3 Months Immunizations Immunization [...] drink = 0.6 oz pur e alcohol) PRAPARE - Transportation Answer Date Re corded [...] were you homeless or living in a jail (including now)? No 06/15/2025 AUDIT-C Answer Date Recorded Q1: How often do you have a drink containing alcohol? Never 07/31/2025 Q2: How many drinks containi ng alcohol do you have on a typical day when you are drinking? Patient does not drink Q3: How often do you have si x or more drinks on one occasion? Never 07/31/2025 Overall Financial Resource Strain (CARDIA) Answe r Date Recorded How hard is it for you to pa y for the very basics like food, housing, medical care, and heating? Somewhat hard 07/30/2025 [facility] - Occupational Stress Questionnaire Answer Date Recorded Do you feel stress - tense, restless, nervous, or anxious, or unable to sleep at night because your mind is troubled all the time - these days? Not at all 07/30/2025 Hunger Vital Sign Answer Date Recorded Within the past 12 months, y ou worried that your food would run out before you got the money to buy more. Never true 07/30/20 25 Within the past 12 months, t he food you bought just didn't last and you didn't have money to get more. Never true 07/30/2025 PRAPARE - Transportation Answer Date Re corded In the past 12 months, has l ack of transportation kept you from medical appointments or from getting medications? No 07/14 In the past 12 months, has l ack of transportation kept you from meetings, work, or from getting things needed for daily living? No 07/30/2025 Housing Stability Vital Sign Answer Mark e Recorded In the last 12 months, was t here a time when you were not able to pay the mortgage or rent on time? Yes 07/30/2025 In the past 12 months, how m any times have you moved where you were living? 1 07/30/2025 At any time in the [facility], were you homeless or living in a jail (including now)? No 07/30/2025 Comments No Sex and Gender Information Value Date Recorded Sex Assigned at Female 04/21/2024 2:38 PM CDT Legal Sex Female 5:23 PM COPY PREPARER Gender Identity Female 04/21/2024 2:38 PM CDT Sexual Orientation Straight 04/21/2024 2: 38 PM CDT Last Filed Vital Signs Vital Sign Reading Time Taken Comments Blood Pressure 92/60 08/09/2025 12:45 PM CDT Pulse 70 08/09/2025 12:45 PM CDT Temperature 36.7 C (98.1 F) 08/09/2025 12:06 PM CDT Respiratory Rate 12 08/09/2025 12:30 PM CDT Oxygen Saturation 99% 08/09/2025 12:45 PM CDT Inhaled Oxygen Concentration - - Weight 82.1 kg (181 lb) 08/09/2025 9:42 AM CDT Height 154.9 cm (5' 1) 08/09/2025 9:42 AM CDT Body Mass Index 34.2 08/09/2025 9:42 AM CDT Plan of Treatment Upcoming Encounters Date Type Department Care Team (Late st Contact Info) Description 09/21/2025 3:30 PM COPY PREPARER Office [place] [facility] [place] [address] [place] [address], [place] [phone] Salomon Sapp MD [address] [place] [address] [address] [place] [address] 09/24/2025 9:30 AM COPY PREPARER Appointment [facility] [address] [place] [phone] Salomon Sapp MD [address] [place] [address] [address] [place] [address] Health Maintenance Due Date Last Done Comments [...] PROTEIN SCREENING 10/14/2024 COVID-19 VACCINE (1 - 2023- season) 2025 INFLUENZA VACCINE (#1) 2025 , 07/15/2020, 09/14/2019 DIABETES-HGB A1C 12/13/2025 06/15/2025, 10/08/2024 DIABETES-SERUM CREATININE 08/01/20262024, 07/31/2025, 07/30/2025, Additional history exists ZOSTER VACCINE (1 of [...] track( 025 1:27 PM CDT) Mary Kay Andrade RN Note: Expected end [...] Procedure Name Priority Date/Time Associated Diagnosis Comments CT ED EGD FLEX TRANSORAL DX 08/09/2025 11:44 AM CDT 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 Patient needs to be scheduled for an endoscopy in 3 months (July) with Dr. Sapp. Thanks! Received Date Received Time May 10, 2025 8:51 AM EGD Routine 08/09/2025 11:42 AM CDT GLUCOSE - POINT OF CARE Routine 08/09/2025 9:57 AM CDT CARDIAC EKG ORDER 08/02/2025 12:54 PM CDT GLUCOSE - POINT OF CARE Routine 08/01/2025 1:44 PM CDT GLUCOSE - POINT OF CARE Routine 08/01/2025 8:57 AM CDT COMPREHENSIVE METABOLIC PANEL AM Draw 08/01/2025 1:56 AM CDT PHOSPHORUS BLOOD Routine 08/01/2025 1:56 AM CDT MAGNESIUM BLOOD Routine 08/01/2025 1:56 AM CDT CBC W AUTO DIFFERENTIAL AM Draw 08/01/2025 1:56 AM CDT CULTURE BLOOD STAT 08/01/2025 1:56 AM CDT GLUCOSE - POINT OF CARE Routine 07/31/2025 6:19 PM CDT GLUCOSE - POINT OF CARE Routine 07/31/2025 12:47 PM CDT GLUCOSE - POINT OF CARE Routine 07/31/2025 8:35 AM CDT DIFFERENTIAL MANUAL AM Draw 07/31/2025 4 :21 AM CDT NEUTROPHIL CYTOPLASMIC ANTIBODY AM Draw 07/31/2025 4:21 AM CDT SACCHAROMYCES ANTIBODY (ASCA) IGG/IGA PANEL AM Draw 07/31/2025 4:21 AM CDT ERYTHROCYTE SEDIMENTATION RATE AM Draw 07/31/2025 4:21 AM CDT C-REACTIVE PROTEIN AM Draw 07/31/2025 4: 21 AM CDT COMPREHENSIVE METABOLIC PANEL AM Draw 07/31/2025 4:21 AM CDT PHOSPHORUS BLOOD Routine 07/31/2025 4:21 AM CDT MAGNESIUM BLOOD Routine 07/31/2025 4:21 AM CDT CBC W AUTO DIFFERENTIAL AM Draw 07/31/2025 4:21 AM CDT CULTURE ANAEROBE STAT 07/30/2025 8:26 PM CDT CYTOLOGY NON-RUBBING BED OPERATOR PANEL (STL) STAT 07/30/2025 8:25 PM CDT Other ascites CULTURE FLUID+GRAM STAIN STAT 07/30/2025 8:21 PM CDT DIFFERENTIAL MANUAL FLUID STAT 07/30/2025 8:18 PM CDT PROTEIN BODY FLUID STAT 07/30/2025 8: 18 PM CDT LDH BODY FLUID STAT 07/30/2025 8:18 PM CDT GLUCOSE BODY FLUID STAT 07/30/2025 8: 18 PM CDT CELL COUNT W DIFFERENTIAL FLUID STAT 07/30/2025 8:18 PM CDT ALBUMIN BODY FLUID STAT 07/30/2025 8: 18 PM CDT PT-INR STAT 07/30/2025 7:[address] ABDOMEN PELVIS W CONTRAST STAT 07/30/2025 6:23 PM CDT Right lower quadrant abdominal pain URINALYSIS REFLEX MICROSCOPIC REFLEX CULTURE STAT 07/30/2025 5:23 PM CDT EKG 12-LEAD Routine 07/30/2025 5:03 PM CDT Shortness of breath TROPONIN-I HIGH SENSITIVE STAT 07/30/2025 4:57 PM CDT LIPASE BLOOD STAT 07/30/2025 4:57 PM CDT COMPREHENSIVE METABOLIC PANEL STAT 07/30/2025 4:57 PM CDT CBC W AUTO DIFFERENTIAL STAT 07/30/2025 4:57 PM CDT ALPHA FETOPROTEIN BLOOD TUMOR MARKER 06/22/2025 11:31 [...] TUBE NOTE Routine 06/15/2025 4:[address] ED EGD FLEX TRANSORAL DX 06/15/2025 3:19 [...] AUTO DIFFERENTIAL STAT 06/14/2025 1:42 PM CDT ENDOSCOPY, COLON, DIAGNOSTIC Routine 08/27/2022 12:28 PM COPY PREPARER HEPATITIS C ANTIBODY Routine 11/14/2017 10:15 AM COPY PREPARER from Last 3 Months or Most Recently Relevant to Health Maintenance Results * EGD (08/09/2025 11:42 AM CDT) Report Endoscopy POC Endoscopy Department Report _ Patient Name: Beulah Garcia Procedure Date: 08/09/2025 11:42 AM Date of : 1980 Classification: Outpatient Gender: Female Ethnicity: Not or Race: White _ Providers: Salomon Sapp MD Referring MD: Sabine Parker (Referring ) Procedure: Upper GI endoscopy Indications: Esophageal varices, [...] patient tolerated the procedure well. Findings: A large post variceal banding scar was found in the lower third of the esophagus. The scar tissue was healthy in appearance. Grade I varices were found in the lower third of the esophagus. They were diminutive in size. The Z-line was irregular and was found 36 cm from the incisors. Mild portal hypertensive gastropathy was found in the gastric fundus. The cardia and gastric fundus were normal on retroflexion. The examined duodenum was normal. Estimated Blood Loss: Estimated blood loss: none. Complications: No immediate complications. Impression: - Scar in the lower third of the esophagus. - Grade I esophageal varices. - Z-line irregular, 36 cm from the incisors. - Portal hypertensive gastropathy. - Normal examined duodenum. - No specimens collected. Recommendation: - Patient has a contact number available for emergencies. The signs and symptoms of potential delayed complications were discussed with the patient. Return to normal activities tomorrow. Written discharge instructions were provided to the patient. - Resume previous diet. - Continue present medications. - Repeat upper endoscopy in 6 months for surveillance. - Return to liver clinic as previously scheduled. Attending Participation: I personally performed the entire procedure. Procedure Code(s): --- Professional --- 23833, Esophagogastroduo denoscopy, flexible, transoral; diagnostic, including collection of specimen(s) by brushing or washing, when performed (separate procedure) Diagnosis Code(s): --- Professional --- K22.89, Other specified disease of esophagus I85.00, Esophageal varices without bleeding K76.6, Portal hypertension K31.89, Other diseases of stomach and duodenum CPT copyright 2021 [employer]. All rights reserved. The codes documented in this report are preliminary and upon dealer development manager review may be revised to meet current compliance requirements. _ Salomon Sapp MD 08/09/2025 12:02:37 PM This report has been signed electronically. Note Initiated On: 08/09/2025 11:42 AM Number of Addenda: 0 [facility] [address] [place] [address] [facility] EMERGENCY DEPARTMENT 08/09/2025 11:4 2 AM CDT us Salomon Sapp MD GI PROCEDURE ORDERABLES Edited Result - Final Performing Organization Address City/[facility] Co de Phone Number [facility] * (ABNORMAL) GLUCOSE - POINT OF CARE (08/09/2025 9:57 AM CDT) Only the most recent of25 resultswithin the time period is included. Glucose WB/POC 178(H) 70 - 99 mg/dL 08/09/2025 9:58 AM CDT [facility] Specimen Type Venous 08/09/2025 9:58 AM CDT [facility] Blood BLOOD SPECIMEN / Unknown 08/09/2025 9:57 AM CDT 08/09/2025 9:58 AM CDT us Salomon Sapp MD LAB - POINT OF CARE ORDERABLES Final Result Performing Organization Address City/[facility]/ZIP Co de Phone Number [facility] [address] [place] [address], [facility] [phone] * CARDIAC EKG ORDER (08/02/2025 12:54 PM CDT) Narrative 08/02/2025 12:54 PM CDT Ordered by an unspecified provider. us Scanned Document CARDIAC SERVICES ORDERABLES Fin al Result * CULTURE BLOOD (08/01/2025 1:56 AM CDT) Only the most recent of5 resultswithin the time period is included. [facility] Culture No growth day 5 MARYANNE 08/06/2025 5:01 AM CDT [facility] Blood PERIPHERAL BLOOD / Unknown Lab Venipuncture / Unknown 08/01/2025 1:56 AM CDT 08/01/2025 2:19 AM CDT Terrence Muniz MD LAB - MICROBIOLOGY O RDERABLES Final Result [facility] [address] [place] [address], [facility] [phone] * (ABNORMAL) CBC W AUTO DIFFERENTIAL (08/01/2025 1:56 AM CDT) Only the most recent of7 resultswithin the time period is included. [facility] WBC 2.4(L) 4.0 - 10.7 x10E9/L 08/01/2025 2:54 AM [facility] RBC Count 3.40(L) 3.90 - 5.20 x10E12/L 08/01/2025 2:54 AM [facility] Hemoglobin 10.0(L) 11.9 - 15.8 g/dL 08/01/2025 2:54 AM [facility] Hematocrit 30.2(L) 34.8 - 46.1 % 08/01/2025 2:54 AM [facility] MCV 88.8 80.0 - 98.0 fL 08/01/2025 2:54 AM [facility] MCH 29.4 26.7 - 33.6 pg 08/01/2025 2:54 AM [facility] MCHC 33.1 31.7 - 36.3 g/dL 08/01/2025 2:54 AM [facility] RDW-CV 14.6 11.3 - 14.8 % 08/01/2025 2:54 AM [facility] Platelet Count 41(L) 150 - 420 x10E9/L 08/01/2025 2:54 AM [facility] MPV 10.9 7.8 - 11.4 fL 08/01/2025 2:54 AM [facility] Neutrophil % 59.8 41.0 - 74.0 % 08/01/2025 2:54 AM [facility] Lymphocyte % 29.8 17.0 - 47.0 % 08/01/2025 2:54 AM [facility] Monocyte % 6.7 3.0 - 11.0 % 08/01/2025 2:54 AM [facility] Eosinophil % 2.9 0.0 - 7.0 % 08/01/2025 2:54 AM [facility] Basophil % 0.4 0.0 - 1.6 % 08/01/2025 2:54 AM [facility] Immature Granulocytes % 0.4 0.0 - 1.0 % 08/01/2025 2:54 AM [facility] Neutrophil Absolute 1.42(L) 1.60 - 7.50 x10E9/L 08/01/2025 2:54 AM [facility] Lymphocyte Absolute 0.71(L) 1.00 - 4.40 x10E9/L 08/01/2025 2:54 AM [facility] Monocyte Absolute 0.16 0.15 - 1.00 x10E9/L 08/01/2025 2:54 AM [facility] Eosinophil Absolute 0.07 0.00 - 0.60 x10E9/L 08/01/2025 2:54 AM [facility] Basophil Absolute 0.01 0.00 - 0.13 x10E9/L 08/01/2025 2:54 AM [facility] Blood BLOOD SPECIMEN / Unknown Lab Venipuncture / Unknown 08/01/2025 1:56 AM CDT 08/01/2025 2:29 AM CDT us Terrence Muniz MD LAB - HEMATOLOGY ORD ERABLES Final Result [facility] [address] [place] [address], [facility] [phone] * (ABNORMAL) COMPREHENSIVE METABOLIC PANEL (08/01/2025 1:56 AM [facility]) Only the most recent of9 resultswithin the time period is included. BUN 12 7 - 26 mg/dL 08/01/2025 2:57 AM [facility] Creatinine 0.86 0.56 - 0.96 mg/dL 08/01/2025 2:57 AM [facility] Sodium 142 136 - 145 mmol/L 08/01/2025 2:57 AM [facility] Potassium 3.6 3.5 - 4.5 mmol/L 08/01/2025 2:57 AM [facility] Chloride 116(H) 98 - 107 mmol/L 08/01/2025 2:57 AM [facility] CO2 19(L) 22 - 29 mmol/L 08/01/2025 2:57 AM [facility] Glucose 126(H) 70 - 99 mg/dL 08/01/2025 2:57 AM [facility] Calcium 8.3(L) 8.4 - 10.2 mg/dL 08/01/2025 2:57 AM [facility] Protein Total 4.9(L) 6.0 - 8.3 g/dL 08/01/2025 2:57 AM [facility] Albumin 2.9(L) 3.4 - 5.0 g/dL 08/01/2025 2:57 AM [facility] Bilirubin Total 0.5 0.2 - 1.2 mg/dL 08/01/2025 2:57 AM [facility] Alkaline Phosphatase 75 40 - 150 U/L 08/01/2025 2:57 AM [facility] ALT 16 5 - 55 U/L 08/01/2025 2:57 AM [facility] AST 25 5 - 34 U/L 08/01/2025 2:57 AM [facility] Anion Gap 7 6 - 16 08/01/2025 2:57 AM [facility] BUN/Creatinine Ratio 14 7 - 23 08/01/2025 2:57 AM CDT [facility] Osmolality Calculated 295 275 - 295 mOsm/kg 08/01/2025 2:57 AM CDT [facility] Albumin/Globulin Ratio 1.5 1.1 - 2.3 08/01/2025 2:57 AM CDT [facility] eGFR by CKD-EPI 84(L) >=90 mL/min/1.7 3 m2 08/01/2025 2:57 AM CDT [facility] Comment:Estimated Glomerular Filtration Rate (eGFR) calculated using the CKD-EPI Creatinine Equation (2020), per the National Kidney Foundation and [place] Society of Nephrology recommendations. Blood BLOOD SPECIMEN / Unknown Lab Venipuncture / Unknown 08/01/2025 1:56 AM CDT 08/01/2025 2:28 AM CDT Terrence Muniz MD LAB - CHEMISTRY ORDAshley HONG Final Result Performing Organization Address City/[facility]/ZIP Co de Phone Number [address] [address], [facility] [phone] * PHOSPHORUS BLOOD (08/01/2025 1:56 AM CDT) Only the most recent of6 resultswithin the time period is included. Phosphorus 3.5 2.9 - 5.1 mg/dL 08/01/2025 2:57 AM CDT [facility] Blood BLOOD SPECIMEN / Unknown Lab Venipuncture / Unknown 08/01/2025 1:56 AM CDT 08/01/2025 2:28 AM CDT Terrence Muniz MD LAB - CHEMISTRY ORDAshley HONG Final Result [address] [address], [place] [phone] * MAGNESIUM BLOOD (08/01/2025 1:56 AM CDT) Only the most recent of6 resultswithin the time period is included. Magnesium 1.6 1.6 - 2.6 mg/dL 08/01/2025 2:57 AM CDT [facility] Blood BLOOD SPECIMEN / Unknown Lab Venipuncture / Unknown 08/01/2025 1:56 AM CDT 08/01/2025 2:28 AM CDT us Terrence Muniz MD LAB - CHEMISTRY SUZY HONG Final Result [address] [address], [facility] [phone] * C-REACTIVE PROTEIN (07/31/2025 4:21 AM CDT) C-Reactive Protein 0.5 <=0.5 mg/dL 07/31/2025 5:25 AM CDT [facility] Blood BLOOD SPECIMEN / Unknown Venipuncture / Unknown 07/31/2025 4:21 AM CDT 07/31/2025 4:57 AM CDT Terrence Muniz MD LAB - CHEMISTRY ORDAshley HONG Final Result Performing Organization Address City/[facility] Co de Phone Number [address] [address], [facility] [phone] * NEUTROPHIL CYTOPLASMIC ANTIBODY (07/31/2025 4:21 AM CDT) Cytoplasmic (C-ANCA) <1:20 Neg:<1:20 titer 08/02/2025 5:09 PM CDT [facility] ([facility]) p-ANCA Titer <1:20 Neg:<1:20 titer 08/02/2025 5:09 PM CDT [facility] ([facility]) Comment: The presence of positive fluorescence exhibiting P-ANCA or C-ANCA patterns alone is not specific for the diagnosis of Patricia's Granulomatosis (WG) or microscopic polyangiitis. Decisions about treatment should not be based solely on ANCA IFA results. The [employer] ANCA Group Consensus recommends follow up testing of positive sera with both CT-3 and MPO-ANCA enzyme immunoassays. As many as 5% serum samples are positive only by EIA. Ref. AM J Clin Pathol 1999;111:507-513. Atypical p-ANCA Titer <1:20 Neg:<1:20 titer 08/02/2025 5:09 PM CDT [facility] ([facility]) Comment: The atypical pANCA pattern has been observed in a significant percentage of patients with ulcerative colitis, primary sclerosing cholangitis and autoimmune hepatitis. Blood BLOOD SPECIMEN / Unknown Venipuncture / Unknown 07/31/2025 4:21 AM CDT 07/31/2025 4:46 AM CDT Narrative [facility] ([facility]) - 08/02/2025 5:09 PM CDT Performed at: [address] [place] [address] [address] [place], [place] [id number] Transplant Coordinator: Nikolai Hoskins PhD, Phone: [phone] Terrence Muniz MD LAB - CHEMISTRY SUZY HONG Final Result [facility] ([facility]) [address] [place] [address] * SACCHAROMYCES ANTIBODY (ASCA) IGG/IGA PANEL (07/31/2025 4:21 AM CDT) Pathologist [facility] Saccharomyces cerevisiae Antibody IgA 13.6 0.0 - 24.9 Units 08/04/2025 11:03 PM CDT [employer] ([facility]) Comment: INTERPRETIVE INFORMATION: S. cerevisiae Antibody, IgA and IgG 20.0 Units or less ........ Negative 20.1 to 24.9 Units ......... Equivocal 25.0 Units or greater ...... Positive Saccharomyces cerevisiae IgG antibodies are found in 60-70 percent of Crohn disease (CD) patients and 10-15 percent of ulcerative colitis (UC) patients. Saccharomyces cerevisiae IgA antibodies are found in about 35 percent of CD patients but less than 1 percent in UC patients. Detection of both Saccharomyces IgG and IgA antibodies in the same serum specimen is highly specific for CD. Saccharomyces cerevisiae Antibody IgG 14.5 0.0 - 24.9 Units 08/04/2025 11:03 PM CDT [employer] [facility] ([facility]) Comment: Performed By: [employer] [address] [place] [address] [employer] Contractor: Rafat Howell MD, PhD CLIA Number: [id number] Blood BLOOD SPECIMEN / Unknown Venipuncture / Unknown 07/31/2025 4:21 AM CDT 07/31/2025 4:46 AM CDT us Terrence Muniz MD LAB - SEROLOGY ORDER KAUR Final Result Performing Organization Address City/[facility]/ZIP Co de Phone Number [facility] ([facility]) [address] [place], [place] [address] * ERYTHROCYTE SEDIMENTATION RATE (07/31/2025 4:21 AM CDT) [facility] Erythrocyte Sedimentation Rate Westergren 3 0 - 20 MM/HR 07/31/2025 5:23 AM CDT [facility] Blood BLOOD SPECIMEN / Unknown Venipuncture / Unknown 07/31/2025 4:21 AM CDT 07/31/2025 4:56 AM CDT us Terrence Muniz MD LAB - HEMATOLOGY ORD ERABLES Final Result Performing Organization Address City/[facility]/ZIP Co de Phone Number [address] [address], [facility] [phone] * (ABNORMAL) DIFFERENTIAL MANUAL (07/31/2025 4:21 AM CDT) Only the most recent of3 resultswithin the time period is included. Pathologist [facility] Neutrophil % 65 41 - 74 % 07/31/2025 8:27 AM CDT [facility] Lymphocyte % 28 17 - 47 % 07/31/2025 8:27 AM CDT [facility] Monocyte % 4 3 - 11 % 07/31/2025 8:27 AM CDT [facility] Eosinophil % 2 0 - 7 % 07/31/2025 8:27 AM CDT [facility] Basophil % 1 0 - 2 % 07/31/2025 8:27 AM CDT [facility] Neutrophil Absolute 1.17(L) 1.60 - 7.50 x10E9/L 07/31/2025 8:27 AM [facility] Lymphocyte Absolute 0.50(L) 1.00 - 4.40 x10E9/L 07/31/2025 8:27 AM [facility] Monocyte Absolute 0.07(L) 0.15 - 1.00 x10E9/L 07/31/2025 8:27 AM [facility] Eosinophil Absolute 0.04 0.00 - 0.60 x10E9/L 07/31/2025 8:27 AM [facility] Basophil Absolute 0.02 0.00 - 0.13 x10E9/L 07/31/2025 8:27 AM [facility] RBC Morphology REVIEWED 07/31/2025 8:27 AM [facility] Microcytosis MODERATE(A) (none) 07/31/2025 8:27 AM [facility] Schistocytes FEW(A) (none) 07/31/2025 8:27 AM [facility] Blood BLOOD SPECIMEN / Unknown Venipuncture / Unknown 07/31/2025 4:21 AM CDT 07/31/2025 4:56 AM CDT Terrence Muniz MD LAB - HEMATOLOGY ORD ERABLES Final Result [facility] [address] [place] [address], [facility] [phone] * CULTURE ANAEROBE (07/30/2025 8:26 PM CDT) Culture No anaerobic organisms isolated MARYANNE 08/05/2025 11:45 AM CDT [facility] MICRO[facility] Microbiology PERITONEAL FLUID / Unknown Collection / Unknown 07/30/2025 8:26 PM CDT 07/30/2025 8:29 PM CDT Florencio Crum DO LAB - MICROBIOLOGY ORDERABLE S Final Result [facility] [address] [place] [address], [facility] [phone] * CYTOLOGY NON-RUBBING BED OPERATOR PANEL (STL) (07/30/2025 8:25 PM CDT) Case Report Medical Cytology Report Case: [id number] Authorizing Provider: Florencio Crum DO Collected: 07/30/2025 08:25 PM Ordering Location: [facility] Received: 08/02/2025 07:37 AM Pathologist: Serina Ballard MD Specimen: Peritoneal Fluid 08/03/2025 1:34 PM CDT [facility] Specimen Adequacy Adequate cellularity for evaluation. 08/03/2025 1:34 PM CDT [facility] Final Diagnosis Peritoneal fluid, cytology (A) - Specimen consist of reactive mesothelial cells and inflammatory cells 08/03/2025 1:34 PM CDT [facility] at 1334 CDT Clinical History Ascites 08/03/2025 1:34 PM CDT [facility] Gross Description 1 Pap stained Thin Prep slide and 1 cell block H&E from 12 cc of pale yellow, slightly cloudy fluid 08/03/2025 1:34 PM CDT [facility] Microscopic Description Microscopic examination substantiates the final diagnosis. 08/03/2025 1:34 PM CDT [facility] Pathologist Location at [facility] 08/03/2025 1:34 PM CDT [facility] Disclaimer The performance characteristics of all immunohistochemical and indirect immunofluorescence stains (if any) cited in this report were determined by the Histopathology Laboratory of [facility]. Some of these tests rely on the use of analyte-specific reagents and are subject to specific labeling requirements by the US Food and Drug Administration. Such tests were developed by the Histology Laboratory of [facility] and have not been cleared or approved by the FDA. The FDA has determined that such clearance and approval is not necessary. These tests are used for clinical purposes and should not be regarded as investigational or for research. This laboratory is certified under the Clinical Laboratory Improvement Amendments (CLIA) as qualified to perform high complexity clinical laboratory testing. This case has been personally reviewed and interpreted by the attending (teaching) pathologist. 08/03/2025 1:34 PM CDT [facility] Embedded Images 08/03/2025 1:34 PM CDT [facility] Pathology/Cytolo gy PERITONEAL FLUID / Unknown Collection / Unknown 07/30/2025 8:25 PM CDT 08/02/2025 7:37 AM CDT Florencio Crum DO LAB - PATHOLOGY/CYTOLOGY ORD ERABLES Final Result [facility] [address] [facility] [place] [address], [facility] [phone] * CULTURE FLUID+GRAM STAIN (07/30/2025 8:21 PM CDT) Culture No growth MARYANNE 08/03/2025 7:16 AM CDT [facility] Gram Stain Rare Polymorphonuclear cells 08/03/2025 7:16 AM CDT [facility] Gram Stain No organisms seen 025 7:16 AM CDT [facility] Other PERITONEAL FLUID / Unknown Collection / Unknown 07/30/2025 8:21 PM CDT 07/30/2025 8:29 PM CDT Florencio Crum DO LAB - MICROBIOLOGY ORDERABLE S Final Result Performing Organization Address City/[facility]/ZIP Co de Phone Number [facility] [address] [place] [address], [facility] [phone] * PROTEIN BODY FLUID (07/30/2025 8:18 PM CDT) Protein Fluid 0.9 Not Established For Fluids g/dL 07/30/2025 9:02 PM CDT [facility] Fluid Type Peritoneal Fluid 07/30/2025 9:02 PM CDT [facility] Fluid PERITONEAL FLUID / Unknown Collection / Unknown 07/30/2025 8:18 PM CDT 07/30/2025 8:29 PM CDT Narrative [facility] - 07/30/2025 9:02 PM CDT The analytical performance of this test has been independently validated by the laboratory. A reference range has not been established for this fluid. Comparison of this result with the concentration in blood, serum or plasma is recommended. [facility] [employer] DO LAB - BODY FLUID ORDERABLES Final Result Performing Organization Address [facility] Co de Phone Number [address] [address], [place] [phone] * ALBUMIN BODY FLUID (07/30/2025 8:18 PM CDT) Albumin Fluid 0.6 g/dL 07/30/2025 9:50 PM CDT [facility] Fluid PERITONEAL FLUID / Unknown Collection / Unknown 07/30/2025 8:18 PM CDT 07/30/2025 8:29 PM CDT Narrative [facility] - 07/30/2025 9:50 PM CDT The analytical performance of this test has been independently validated by the laboratory. A reference range has not been established for this fluid. Comparison of this result with the concentration in blood, serum or plasma is recommended. [facility] [employer] DO LAB - BODY FLUID ORDERABLES Final Result Performing Organization Address [facility] Co de Phone Number [address] [address], [place] [phone] * LDH BODY FLUID (07/30/2025 8:18 PM CDT) LD Fluid 40 Not Established For Fluids Units/L 07/30/2025 9:50 PM CDT [facility] Fluid PERITONEAL FLUID / Unknown Collection / Unknown 07/30/2025 8:18 PM CDT 07/30/2025 8:29 PM CDT Narrative [facility] - 07/30/2025 9:50 PM CDT The analytical performance of this test has been independently validated by the laboratory. A reference range has not been established for this fluid. Comparison of this result with the concentration in blood, serum or plasma is recommended. [facility] [employer] DO LAB - BODY FLUID ORDERABLES Final Result Performing Organization Address City/[facility]/ZIP Co de Phone Number [address] [address], [facility] [phone] * GLUCOSE BODY FLUID (07/30/2025 8:18 PM CDT) Glucose Fluid 145 Not Established For Fluids mg/dL 07/30/2025 9:32 PM CDT [facility] Fluid Type Peritoneal Fluid 07/30/2025 9:32 PM CDT [facility] Fluid PERITONEAL FLUID / Unknown Collection / Unknown 07/30/2025 8:18 PM CDT 07/30/2025 8:29 PM CDT Narrative [facility] - 07/30/2025 9:32 PM CDT The analytical performance of this test has been independently validated by the laboratory. A reference range has not been established for this fluid. Comparison of this result with the concentration in blood, serum or plasma is recommended. Florencio Crum DO LAB - BODY FLUID ORDERABLES Final Result [facility] [address] [place] [address], [facility] [phone] * DIFFERENTIAL MANUAL FLUID (07/30/2025 8:18 PM CDT) Fluid Source Peritoneal 07/30/2025 9:32 PM CDT [facility] Body Fluid Total Cell Count 100 x10E6/L 07/30/2025 9:32 PM CDT [facility] Neutrophils Fluid Percent 7 % 07/30/2025 9:32 PM CDT [facility] Lymphocytes Fluid Percent 26 % 07/30/2025 9:32 PM CDT [facility] Macrophages Fluid Percent 62 % 07/30/2025 9:32 PM CDT [facility] Comment:Signet Ring Cell Mac rophage present Erythrophages present Mesothelial Cells Fluid Percent 5 % 07/30/2025 9:32 PM CDT [facility] Fluid PERITONEAL FLUID / Unknown Collection / Unknown 07/30/2025 8:18 PM CDT 07/30/2025 8:29 PM CDT Narrative [facility] - 07/30/2025 9:32 PM CDT No reference ranges established for body fluid differential cell counts. The test results must be integrated into the clinical context for interpretation. Florencio Crum LAB - BODY FLUID ORDERABLES Final Result Performing Organization Address [facility] Co de Phone Number [address] [address], [facility] [phone] * CELL COUNT W DIFFERENTIAL FLUID (07/30/2025 8:18 PM CDT) Fluid Source Peritoneal 07/30/2025 9:33 PM CDT [facility] Fluid Appearance SLIGHTLY HAZY 07/30/2025 9:33 PM CDT [facility] Fluid Color STRAW 07/30/2025 9:33 PM CDT [facility] Total Nucleated Cells Fluid 77 Reference Range Not Established x10E6/L 07/30/2025 9:33 PM CDT [facility] RBC Count Fluid <2,000 Reference Range Not Established x10E6/L 07/30/2025 9:33 PM CDT [facility] Fluid PERITONEAL FLUID / Unknown Collection / Unknown 07/30/2025 8:18 PM CDT 07/30/2025 8:29 PM CDT Narrative [facility] - 07/30/2025 9:33 PM CDT No reference ranges established for body fluid cell counts. Any reference ranges provided are derived from published literature. The test results must be integrated into the clinical context for interpretation. Florencio Crum LAB - BODY FLUID ORDERABLES Final Result Performing Organization Address [facility] Co de Phone Number [address] [address], [facility] [phone] * (ABNORMAL) PT-INR (07/30/2025 7:21 PM CDT) Only the most recent of7 resultswithin the time period is included. PT 16.6(H) 12.1 - 14.8 Seconds 07/30/2025 7:54 PM CDT [facility] INR 1.4 See Comment 07/30/2025 7:54 PM CDT [facility] Comment:The suggested therap eutic range for standard coumadin (warfarin) therapy is an INR of 2.0-3.0. For high-risk patients (Mechanical Mitral Valve Prosthesis, etc.), the suggested prophylactic therapeutic range is an INR of 2.5-3.5. Blood BLOOD SPECIMEN / Unknown Venipuncture / Unknown 07/30/2025 7:21 PM CDT 07/30/2025 7:23 PM CDT Florencio Crum DO LAB - COAGULATION ORDERABLES Final Result [facility] [address] [place] [address], [facility] [phone] * CT ABDOMEN PELVIS W CONTRAST (07/30/2025 6:23 PM CDT) Anatomical Region Laterality Modality Abdomen, Pelvis Computed Tomogra phy 07/30/2025 7:40 PM CDT Impressions 07/30/2025 8:35 PM CDT Impression: 1.Hepatic cirrhosis with sequelae of portal hypertension including paraesophageal varices, splenomegaly and large volume ascites which is increased from the prior exam. A few areas of mild increased peritoneal enhancement could represent early peritonitis. 2.Diffuse bowel wall thickening most prominent in the right and transverse colon most likely represents portal colopathy. > Dictated by Derrick Potter DO, (interventional radiology tech). > Dictated by Derrick Potter DO 07/30/2025 7:40 PM > Dictated by Quality Control Engineering Technician I, Michael Chin MD have personally reviewed and interpreted this examination/study. > Interpreting Provider: Michael Chin MD on 07/30/2025 8:35 PM Narrative 07/30/2025 8:35 PM CDT PROCEDURE: CT ABDOMEN PELVIS W CONTRAST, DATE/TIME OF EXAM: 07/30/2025 6:24 PM, LOCATION [facility] INDICATION: R10.31: Right lower quadrant abdominal pain Ordering Provider Reason For Exam: intrabdominal infection Technologist Note: Additional: None. TECHNIQUE: CT of the abdomen and pelvis was performed following the uneventful administration of IOPAMIDOL 76 % IV SOLN:100 mL of Isovue 370 intravenous contrast according to standard protocol. COMPARISON: CT of the abdomen and pelvis from 06/14/2025. Findings: Lower Chest: Normal. Liver: The liver has a nodular surface, consistent with hepatic cirrhosis. 1.1 cm hypodense lesion in the right hepatic lobe inferiorly, unchanged in size, potentially a cyst (series 4 image 45). The portal vein is patent. Gallbladder and Bile Ducts: The gallbladder is absent. Spleen: Splenomegaly measuring 17.6 cm transaxially. Pancreas: Normal. Adrenals: Normal. Kidneys, Ureters & Bladder: There is an 8 mm nonobstructing renal calculus in the upper pole of the right kidney. There is a simple cyst at the lower pole of the left kidney. No hydronephrosis or other renal abnormality is identified. Gastrointestinal: There are esophageal varices within the distal esophagus. Mild bowel wall thickening of the ascending and transverse colon most likely representing portal hypertensive colopathy. Evaluation of the bowel wall thickening and adjacent inflammatory changes is limited in the presence of ascites. The appendix is nondilated. Mesentery/Peritoneum/Retroperitoneum: Large volume ascites. No pneumoperitoneum. There are a few areas of mild increased peritoneal enhancement for example in the left mid abdomen lateral to the spleen (series 4 image 75). Reproductive Organs: The uterus is absent. Bones: Mild degenerative changes in the spine. Large right paracentral posterior disc osteophyte complex at L5-S1 (series 6 image 70). Soft tissues: Normal. Procedure Note Michael Chin MD - 07/30/2025 PROCEDURE: CT ABDOMEN PELVIS W CONTRAST, DATE/TIME OF EXAM: 07/30/2025 6:24 PM, LOCATION [facility] INDICATION: R10.31: Right lower quadrant abdominal pain Ordering Provider Reason For Exam: intrabdominal infection Technologist Note: Additional: None. TECHNIQUE: CT of the abdomen and pelvis was performed following the uneventful administration of IOPAMIDOL 76 % IV SOLN:100 mL of Isovue 370 intravenous contrast according to standard protocol. COMPARISON: CT of the abdomen and pelvis from 06/14/2025. Findings: Lower Chest: Normal. Liver: The liver has a nodular surface, consistent with hepaticcirrhosis. 1.1 cm hypodense lesion in the right hepatic lobe inferiorly, unchangedin size, potentially a cyst (series 4 image 45). The portal vein is patent. Gallbladder and Bile Ducts: The gallbladder is absent. Spleen: Splenomegaly measuring 17.6 cm transaxially. Pancreas: Normal. Adrenals: Normal. Kidneys, Ureters & Bladder: There is an 8 mm nonobstructing renal calculus in the upper pole of the right kidney. There is a simple cystat the lower pole of the left kidney. No hydronephrosis or other renal abnormality is identified. Gastrointestinal: There are esophageal varices within the distalesophagus. Mild bowel wall thickening of the ascending and transverse colon most likely representing portal hypertensive colopathy. Evaluation of thebowel wall thickening and adjacent inflammatory changes is limited in the presence of ascites. The appendix is nondilated. Mesentery/Peritoneum/Retroperitoneum: Large volume ascites. No pneumoperitoneum. There are a few areas of mild increased peritoneal enhancement for example in the left mid abdomen lateral to the spleen (series 4 image 75). Reproductive Organs: The uterus is absent. Bones: Mild degenerative changes in the spine. Large right paracentral posterior disc osteophyte complex at L5-S1 (series 6 image 70). Soft tissues: Normal. Impression: 1.Hepatic cirrhosis with sequelae of portal hypertension including paraesophageal varices, splenomegaly and large volume ascites which is increased from the prior exam. A few areas of mild increased peritoneal enhancement could represent early peritonitis. 2.Diffuse bowel wall thickening most prominent in the right andtransverse colon most likely represents portal colopathy. > Dictated by Derrick Potter DO, (interventional radiology tech). > Dictated by Derrick Potter DO 07/30/2025 7:40 PM > Dictated by Quality Control Engineering Technician I, Michael Chin MD have personally reviewed and interpreted this examination/study. > Interpreting Provider: Michael Chin MD on 07/30/2025 8:35 PM Florencio Crum DO CT ORDERABLES Final Result * (ABNORMAL) URINALYSIS REFLEX MICROSCOPIC REFLEX CULTURE (07/30/2025 5:23 PM CDT) Only the most recent of3 resultswithin the time period is included. Color UA Yellow Yellow, Straw 07/30/2025 5:35 PM CDT [facility] Clarity UA Clear Clear 07/30/2025 5:35 PM CDT [facility] Glucose UA 4+(A) Normal 07/30/2025 5:35 PM CDT [facility] Bilirubin UA Negative Negative 07/30/2025 5:35 PM CDT [facility] Ketone UA Negative Negative 07/30/2025 5:35 PM CDT [facility] Specific [place] UA 1.037(H) 1.005 - 1.030 07/30/2025 5:35 PM CDT [facility] Blood UA Negative Negative 07/30/2025 5:35 PM CDT [facility] pH UA 6.0 5.0 - 8.0 07/30/2025 5:35 PM CDT [facility] Protein UA Negative Negative 07/30/2025 5:35 PM CDT [facility] Urobilinogen UA 3.0(A) Normal mg/dL 07/30/2025 5:35 PM CDT [facility] Nitrite UA Negative Negative 07/30/2025 5:35 PM CDT [facility] Leukocyte Esterase UA Negative Negative 07/30/2025 5:35 PM CDT [facility] Reflex Status Culture not indicated 07/30/2025 5:35 PM CDT [facility] Urine Microscopy Urine microscopy not indicated 07/30/2025 5:35 PM CDT [facility] Urine URINE SPECIMEN OBTAINED BY CLEAN CATCH PROCEDURE / Unknown Collection / Unknown 07/30/2025 5:23 PM CDT 07/30/2025 5:27 PM CDT us Robbin Carbone MD LAB - URINALYSIS ORDERABLES Final Result [facility] [address] [place] [address], [facility] [phone] * EKG 12-Lead (07/30/2025 5:03 PM CDT) Ventricular Rate 88 BPM [facility] Atrial Rate 88 BPM [facility] P-R Interval 124 ms [facility] QRS Duration ms 82 ms [facility] Q-T Interval ms 494 ms [facility] QTC Calculation (Bezet) 597 ms [facility] Calculated P Bryan 19 degrees [facility] Calculated R Bryan 37 degrees [facility] Calculated T Bryan 40 degrees [facility] Interpretation EKG NORMAL SINUS RHYTHM LOW VOLTAGE QRS CANNOT RULE OUT ANTERIOR INFARCT , AGE UNDETERMINED ABNORMAL ECG NO PREVIOUS ECGS AVAILABLE Confirmed by JEFFREY LUGO MD ([id number]) on 07/31/2025 8:10:30 PM [facility] 07/30/2025 5:03 PM CDT 07/31/2025 8:10 PM CDT [facility] [email or web address] DO ECG ORDERABLES Edited Resul t - Final Performing Organization Address City/[facility]/ZIP Co de Phone Number [facility] * TROPONIN-I HIGH SENSITIVE (07/30/2025 4:57 PM CDT) Troponin I High Sensitive <3 <=14 ng/L 07/30/2025 5:53 PM CDT [facility] Blood BLOOD SPECIMEN / Unknown Venipuncture / Unknown 07/30/2025 4:57 PM CDT 07/30/2025 5:09 PM CDT Florenc[facility] [employer] LAB - CHEMISTRY ORDERABLES F inal Result Performing Organization Address [facility] de Phone Number [address] [address], [facility] [phone] * LIPASE BLOOD (07/30/2025 4:57 PM CDT) Only the most recent of2 resultswithin the time period is included. Lipase 19 8 - 78 U/L 07/30/2025 5:49 PM CDT [facility] Blood BLOOD SPECIMEN / Unknown Venipuncture / Unknown 07/30/2025 4:57 PM CDT 07/30/2025 5:09 PM CDT Narrative [facility] - 07/30/2025 5:49 PM CDT Lipase results from the [employer] Alinity analyzer may not be comparable with other methodologies. [facility] [employer] LAB - CHEMISTRY ORDERABLES F inal Result Performing Organization Address [facility]/ZIP Co de Phone Number [address] [address], [facility] [phone] * ALPHA FETOPROTEIN BLOOD TUMOR MARKER (06/22/2025 11:31 AM CDT) [facility] Alpha-Fetoprotei n Tumor Marker 3.6 ng/mL [facility] Comment: Reference Range: <6.1 The use of AFP as a tumor marker in females is not recommended. This test was performed using the Maryellen Hastings chemiluminescent method. Values obtained from different assay methods cannot be used interchangeably. AFP levels, regardless of value, should not be interpreted as absolute evidence of the presence or absence of disease. Test Performed at: [facility] [address] [address] [place] 06/22/2025 11:3 1 AM CDT 06/22/2025 11:32 AM CDT Salomon Sapp MD LAB - CHEMISTRY ORDERABLES Fin al Result [facility] [address] [place] [address] * BLOOD TYPE VERIFICATION (06/16/2025 3:33 AM CDT) [facility] ABO Rh O POS 06/16/2025 4:5 8 AM CDT [facility] Blood Bank BLOOD SPECIMEN / Unknown Lab Venipuncture / Unknown 06/16/2025 3:33 AM CDT 06/16/2025 4:19 AM CDT Mukul Dubon MD LAB - BLOOD BANK ORDERABLES Fi nal Result [facility] [address] [place] [address], [facility] [phone] * (ABNORMAL) CBC W/O DIFFERENTIAL (06/16/2025 3:33 AM CDT) Only the most recent of3 resultswithin the time period is included. [facility] WBC 1.7(L) 4.0 - 10.7 x10E9/L 06/16/2025 4:15 AM CDT [facility] RBC Count 3.31(L) 3.90 - 5.20 x10E12/L 06/16/2025 4:15 AM [facility] Hemoglobin 10.0(L) 11.9 - 15.8 g/dL 06/16/2025 4:15 AM [facility] Hematocrit 29.1(L) 34.8 - 46.1 % 06/16/2025 4:15 AM [facility] MCV 87.9 80.0 - 98.0 fL 06/16/2025 4:15 AM [facility] MCH 30.2 26.7 - 33.6 pg 06/16/2025 4:15 AM [facility] MCHC 34.4 31.7 - 36.3 g/dL 06/16/2025 4:15 AM [facility] RDW-CV 15.3(H) 11.3 - 14.8 % 06/16/2025 4:15 AM [facility] Platelet Count 36(L) 150 - 420 x10E9/L 06/16/2025 4:15 AM [facility] MPV 11.2 7.8 - 11.4 fL 06/16/2025 4:15 AM [facility] Blood BLOOD SPECIMEN / Unknown Lab Venipuncture / Unknown 06/16/2025 3:33 AM CDT 06/16/2025 4:04 AM CDT us Mukul Dbuon MD LAB - HEMATOLOGY ORDERABLES Fi nal Result Performing Organization Address City/State/[facility] Co de Phone Number [facility] [address] [place] [address], [facility] [phone] * ETT LINE PERFORMABLE (06/15/2025 4:02 PM CDT) Narrative Ross Maurer CAA - 06/15/2025 4:02 PM CDT Ross Maurer CAA 06/15/2025 4:03 PM Endotracheal Tube Placement: Patient Location: OR. Intubation Event Date/Time: 06/15/2025 3:51 PM Procedure: intubation (60096) Procedure Section: Sedation: under general anesthesia. Indications [...] for 72h. Procedure Code(s): --- Professional --- 72490, Esophagogastroduo denoscopy, flexible, transoral; with band ligation of esophageal/gastri c varices Diagnosis Code(s): --- Professional --- I85.01, Esophageal varices with bleeding K76.6, Portal hypertension K31.89, Other diseases of stomach and duodenum K92.0, Hematemesis CPT copyright 2021 [employer]. All rights reserved. The codes documented in this report are preliminary and upon dealer development manager review may be revised to meet current compliance requirements. Susanna Richter DO 06/15/2025 4:07:18 PM This report has been signed electronically. Note Initiated On: 06/15/2025 2:39 PM Number of Addenda: [id number] [place] [address] PROVATION 06/15/2025 2:39 PM CDT Susanna Richter DO GI PROCEDURE ORDERABLES Edited R esult - Final [facility] * HEMOGLOBIN A1C (06/15/2025 4:56 AM CDT) Hemoglobin A1c 5.0 <=5.6 % 06/15/2025 9:51 AM CDT [facility] Estimated Average Glucose 97 mg/dL 06/15/2025 9:51 AM CDT [facility] Comment: HbA1c Interpretation: Normal : < 5.7% Pre-diabetes: 5.7-6.4% Diabetes: Equal to or greater than 6.5% Test results diagnostic of diabetes should be repeated for confirmation. Treatment target values recommended by ADA and other clinical organizations should be used to evaluate metabolic control in patients. Reference: [place] Diabetes Association, Standards of Care in Diabetes -2020 In patients 70 years and older consider HbA1c target range of 7.0-7.5% (Reference: Garcia Contreras et al. JAMDA. 2012) The Sebia assay for the measurement of HbA1c is a National Glycohemoglobin Standardization Program (NGSP) certified method. Blood BLOOD SPECIMEN / Unknown Venipuncture / Unknown 06/15/2025 4:56 AM CDT 06/15/2025 5:02 AM CDT Mukul Dubon MD LAB - CHEMISTRY ORDERABLES Fin al Result [facility] [address] [place] [address], [place] [phone] * CULTURE URINE (06/14/2025 8:49 PM CDT) Culture Urine <10,000 CFU/mL urogenital john MARYANNE 06/16/2025 2:56 PM CDT [facility] Urine URINE SPECIMEN OBTAINED BY CLEAN CATCH PROCEDURE / Unknown Collection / Unknown 06/14/2025 8:49 PM CDT 06/14/2025 9:22 PM CDT Mukul Dubon MD LAB - MICROBIOLOGY ORDERABLES Final Result Performing Organization Address City/[facility]/ZIP Co de Phone Number [facility] [address] [place] [address], [facility] [phone] * CT Angio Abdomen Pelvis (06/14/2025 8:45 [...] verification. > Dictated by Derrick Potter DO, (interventional radiology tech). > Dictated by Quality Control Engineering Technician IAshley. Patricia Connors MD have personally reviewed and interpreted this examination/study. > Interpreting Provider: Maribel Connors MD on 06/14/2025 10:00 PM Narrative 06/14/2025 10:00 PM CDT PROCEDURE: CT ANGIO ABDOMEN PELVIS, DATE/TIME OF EXAM: 06/14/2025 8:46 PM, LOCATION [facility] INDICATION: K92.0: Hematemesis with nausea Ordering Provider [...] PELVIS, DATE/TIME OF EXAM: 06/14/2025 8:46PM, LOCATION [facility] INDICATION: K92.0: Hematemesis with nausea Ordering Provider [...] verification. > Dictated by Derrick Potter DO, (interventional radiology tech). > Dictated by Quality Control Engineering Technician Maribel Le MD have personally reviewed and interpreted this examination/study. > Interpreting Provider: Maribel Connors MD on 06/14/2025 10:00 PM us Mukul Dubon MD CT ORDERABLES Final Result * TYPE + SCREEN PANEL (06/14/2025 8:44 PM CDT) Antibody Screen NEG 9:46 PM CDT [facility] ABO Rh O POS 06/14/2025 9:46 PM CDT [facility] Blood Bank BLOOD SPECIMEN / Unknown Venipuncture / Unknown 06/14/2025 8:44 PM CDT 06/14/2025 9:00 PM CDT us Mukul Dubon MD LAB - BLOOD BANK ORDERABLES Fi nal Result Performing Organization Address City/[facility]/ZIP Co de Phone Number [facility] [address] [place] [address], [place] [phone] * (ABNORMAL) PTT (06/14/2025 8:44 PM CDT) APTT 46.3(H) 23.0 - 38.4 Seconds 06/14/2025 9:21 PM CDT [facility] Comment:Suggested therapeuti c range for full dose I.V. unfractionated heparin therapy for venous thromboembolism is 71 to 109 seconds. Blood BLOOD SPECIMEN / Unknown Venipuncture / Unknown 06/14/2025 8:44 PM CDT 06/14/2025 8:58 PM CDT us Mukul Dubon MD LAB - COAGULATION ORDERABLES F inal Result Performing Organization Address City/[facility]/ZIP Co de Phone Number [facility] [address] [place] [address], [place] [phone] * ALCOHOL ETHYL BLOOD (06/14/2025 8:30 PM CDT) Ethanol (mg/dL) <10 <10 mg/dL 9:12 PM CDT [facility] Ethanol Calculated (g/dL) <0.010 <=0.010 g/dL 06/14/2025 9:12 PM CDT [facility] Blood BLOOD SPECIMEN / Unknown Venipuncture / Unknown 06/14/2025 8:30 PM CDT 06/14/2025 8:44 PM CDT Narrative [facility] - 06/14/2025 9:12 PM CDT Ethanol Interp <10: None Detected. Depression of WIRE SPINNER: >100 mg/dl Potentially Critical: >250 mg/dl Potentially Fatal >400 mg/dl Ethanol in the patient's blood will contribute to the osmolar gap. Ethanol's contribution to the osmolar gap can be estimated by dividing the concentration of ethanol in mg/dL by 4.6. This test is for clinical use only and does not equal a DARLENE for legal purposes. us Mukul Dubon MD LAB - CHEMISTRY ORDERABLES Fin al Result [facility] [address] [place] [address], [facility] [phone] * ENDOSCOPY, COLON, DIAGNOSTIC (08/27/2022 12:28 PM COPY PREPARER) Report Endoscopy POC Endoscopy Department Report _ [...] entire procedure. Procedure Code(s): --- Professional --- 90057, Colonoscopy, flexible; with removal of tumor(s), polyp(s), or other lesion(s) by snare technique Diagnosis Code(s): --- Professional --- K63.5, Polyp of colon K64.4, Residual hemorrhoidal skin tags R10.84, Generalized abdominal pain K92.1, Melena (includes Hematochezia) CPT copyright 2019 [employer]. All rights reserved. The codes documented in this report are preliminary and upon dealer development manager review may be revised to meet current compliance requirements. Salomon Sapp MD 08/27/2022 1:27:31 PM This report has been signed electronically. Note Initiated On: 08/27/2022 12:28 PM Number of Addenda: [id number] [place] [address] 08/27/2022 12:2 8 PM COPY PREPARER us Salomon Sapp MD GI PROCEDURE ORDERABLES Edited Result - Final Performing Organization Address City/[facility]/ZIP Co de Phone Number [facility] * HEPATITIS C ANTIBODY (11/14/2017 10:15 AM COPY PREPARER) Hepatitis C Antibody Non-react [facility] [...] BLOOD SPECIMEN / Unknown 11/14/2017 10:15 AM COPY PREPARER 11/14/2017 11:03 AM COPY PREPARER Verito Mcclendon MD LAB - CHEMISTRY ORDERABLES Final Result Performing Organization Address City/[facility]/ZIP Co de Phone Number [facility] [address] [place] [address], [facility] [phone] from Last 3 Months or Most Recently Relevant to Health Maintenance Insurance [facility] SELF PAY NO INSURANCE Member Subscriber Plan / Payer (Ef fective for All Dates) Name:Miranda Garciaai Melo Member ID:Not on file Relation to Subscriber:Not on file Name:MIRANDA GARCIABEULAH Kameron Subscriber ID:Not on file (Home) Address: [address] [place] [address] [place] [address] Payer ID:Not on file Group ID:Not on file Type:Self Pay Address: [facility] [address] [place] [id number] Advance Directives * Full Code (Latest Code Status on File) Date Activated Date Inactivated Comments 07/30/2025 9:59 PM 08/01/2025 4:53 PM * Full Code Date Activated Date Inactivated Comments 06/14/2025 10:12 PM 06/18/2025 2:59 PM * Full Code Date Activated Date Inactivated Comments 10/07/2024 6:10 PM 10/11/2024 5:22 PM Care Teams Ultrasonic Hand Solderer Relationship Specialty Start Date End Date Sabine Parker, WATCH LEADER-RECRUITING COORDINATOR [address] [place] [address] PCP - General Nurse Practitioner Family 05/07/25 Sadia Morris [facility] [address] [place], [place] [phone] 09/13/24
--- OUTSIDE RECORDS SUMMARY | 2025-08-14 21:50 | XMS_ITS | Encounter Summary ---
Author Organization [facility] Address [address] [place] [address] Phone Care Team Providers Care Irrigation Specialist Name Role Phone Ric Malik MD Unavailable [phone] Ric Malik MD Unavailable [phone] Natacha Hoyt MD Primary Care Provider Rubens Claros MD Unavailable [phone] Encounter Details Date Type Department Care Team (Late st Contact Info) Description 07/22/2025 Results Follow-Up [facility] [address] [place] [address] Rubens Claros MD [address] [address] CULTURE, URINE Social History Tobacco Use Types Packs/Day Years [...] as of this encounter Progress Notes * Rubens Claros MD - 07/22/2025 8:23 PM CDT Can you please let the patient know UCX pos, I placed rx for abx. Thank you, Rubens Claros documented in this encounter Plan of Treatment Upcoming Encounters Date Type Department Care Team (Late st Contact Info) Description 08/20/2025 11:30 AM REPRESENTATIVE PERSONAL SERVICE Procedure Visit [facility] [place] [address] Rubens Claros MD [address] [facility] [address] [address] 10/21/2025 1:00 PM REPRESENTATIVE PERSONAL SERVICE Office Visit [facility] [address] [place] [phone] Ric Malik MD [facility]2 [facility] 2 [place], [place] [phone] documented as of this encounter Visit Diagnoses Not on filedocumented in this encounter Additional Health Concerns Assessment Noted Time PHQ-9 Depression Total Score: 0 05/19/20 20 2:36 PM CDT documented as of this encounter Care Teams Irrigation Specialist Relationship Specialty Start Date End Date Natacha Hoyt MD [address] [place] [address] [address] [place] [address] PCP - General Family Medicine 08/29/23 Ric Malik MD [address] [place] [phone] Consulting Physician Oncology 05/22/22 iRc Malik MD [address] [place] [phone] Consulting Physician Oncology 08/28/23 Rubens Claros MD [address] [address] Consulting Physician Urology 06/07/25 documented as of this encounter
--- OUTSIDE RECORDS SUMMARY | 2025-08-14 21:50 | XMS_ITS | Encounter Summary ---
Author Organization [facility] Address [address] [place] [address] Care Team Providers Care Coverage Specialist Name Role Phone Eber Sebastian MD Primary Care Provider [phone] Roxana Martins NP Primary Care Provider [phone] Natacha Hoyt MD Primary Care Provider Encounter Details Date Type Department Care Team (Late st Contact Info) Description 02/27/2018 Hospital Follow-up Call [facility] [place] [address] Yamilex Hi, RN Social History [...] CDT Gender Identity Female 12/01/2021 10:08 AM TRACK LAYING SUPERVISOR Sexual Orientation Straight 12/01/2021 10 :08 AM TRACK LAYING SUPERVISOR documented as of this encounter Functional Status [...] documented as of this encounter Care Teams Coverage Specialist Relationship Specialty Start Date End Date Eber Sebastian MD [address] [place] [address] PCP - General FAMILY PRACTICE 09/24/17 12/04/20 Roxana Martins NP [address] [place] [address] PCP - General NURSE PRACTITIONER 12/05/20 06/10/21 Natacha Hoyt MD [address] [place] [address] PCP - General FAMILY PRACTICE 06/11/21 documented as of this encounter
--- OUTSIDE RECORDS SUMMARY | 2025-08-14 21:50 | XMS_ITS | Encounter Summary ---
Author Organization [facility] Address [address] [place] [address] Care Team Providers Care Machine Precision Engraver Name Role Phone Sadia Morris Primary Care Provider [phone] Sadia Morris Primary Care Provider [phone] Sadia Morris Unavailable Sabine Parker ALARM SECURITY OR SURVEILLANCE MONITOR-LODGE ATTENDANT Primary Care Provider Reason for Visit * Reason Onset Date Comments MEDICATION REFILL 01/21/2024 Encounter Details Date Type Department Care Team (Late st Contact Info) Description 01/21/2024 Refill [facility] - GI [address] [place] [address], [place] [phone] Salomon Sapp MD [address] [place] [address] [place] [address] MEDICATION REFILL Social History Tobacco Use Types [...] PM CDT Legal Sex Female 5:23 PM INTAKE ASSESSOR Gender Identity Female 04/21/2024 2:38 PM CDT Sexual Orientation Straight 04/21/2024 2: 38 PM CDT documented as of this encounter Functional Status * Is person deaf or have serious hearing difficulty? Answer Date of Assessment Author No 08/27/2022 1:21 PM Monika Melvin RN * Is person blind or have serious difficulty seeing? Answer Date of Assessment Author No 08/27/2022 1:21 PM Bryan Melvin RN * Does person have serious [...] st Contact Info) Description 09/21/2025 3:30 PM INTAKE ASSESSOR Office Visit [facility] - GI [address] [place] [address], [place] [phone] Salomon Sapp MD [address] [place] [address] [address] [place] [address] 09/24/2025 9:30 AM INTAKE ASSESSOR Appointment [facility] [address] [place] [address] Salomon Sapp MD [address] [place] [address] [address] [place] [address] documented as of this encounter Goals Goal [...] on filedocumented in this encounter Care Teams Machine Precision Engraver Relationship Specialty Start Date End Date SuperiorMarya gonzalezminnie Granados [address] [place] [address] PCP - General 09/24/23 09/12/24 SuperiorMarya gonzalezminnie Granados [address] [place] [address] PCP - General 09/13/24 05/06/25 Sabine Parker, GUS-LODGE ATTENDANT [address] [place] [address] PCP - General Nurse Practitioner Family 05/07/25 Superior, Sadia [address] [address] 09/13/24 documented as of this encounter
--- OUTSIDE RECORDS SUMMARY | 2025-08-14 21:51 | XMS_ITS | Clinical Summary ---
Author Organization [facility] Address [address] [place] [address] Care Team Providers Care Site Coordinator Name Role Phone Sadia Morris NP Primary Care Provider + Allergies Active Allergy Reactions Criticality Noted Date Comments Sumatriptan Muscle pain,Other (See comments) Medium [place] Oil Hives Medium 02/13/2022 Medications cyclobenzaprine (FLEXERIL) [...] Type Department Care Team Description 05/20/2025 Documentation [facility] [address] [place] [address] Quiana Campbell, PT from Last 3 Months [...] on file Legal Sex Female 11:18 PM HANDLE BAR ASSEMBLER Gender Identity Not on file Sexual Orientation Not on file Obstetrics History Last Filed Vital Signs Vital Sign Reading Time Taken Comments Blood Pressure 122/71 09/13/2024 3:03 PM HANDLE BAR ASSEMBLER Pulse 64 09/13/2024 3:03 PM HANDLE BAR ASSEMBLER Temperature 36.2 C (97.2 F) 09/13/2024 3:03 PM HANDLE BAR ASSEMBLER Respiratory Rate 16 09/13/2024 3:03 PM HANDLE BAR ASSEMBLER Oxygen Saturation 97% 09/13/2024 3:03 PM HANDLE BAR ASSEMBLER Inhaled Oxygen Concentration - - Weight 90.3 kg (199 lb) 09/12/2024 2:18 AM HANDLE BAR ASSEMBLER Height 157.5 cm (5' 2) 09/12/2024 2:18 AM HANDLE BAR ASSEMBLER Body Mass Index 36.4 09/12/2024 2:18 AM HANDLE BAR ASSEMBLER Plan of Treatment Health Maintenance Due Date [...] Comments HEMOGLOBIN A1C Routine 09/12/2024 4:58 AM HANDLE BAR ASSEMBLER EGFR STAT 09/11/2024 11:22 PM HANDLE BAR ASSEMBLER from Last 3 Months or Most Recently Relevant to Health Maintenance Results * Hemoglobin A1c (09/12/2024 4:58 AM HANDLE BAR ASSEMBLER) Hgb A1C 5.4 4.0 - 5.6 % Estimated Average Glucose 108 mg/dL JUDITH THOMPSON ([place]) Comment: The ADA recommends reporting an estimated Average Glucose (eAG) with all Hemoglobin A1c results using the equation derived from a study of 507 normal and diabetic adults. Minority populations were underrepresented and children were not included. (Diabetes Care 31:6917-3219, 2008). The eAG is not equivalent to a fasting glucose. Blood 09/12/2024 4:58 AM HANDLE BAR ASSEMBLER 09/12/2024 5:07 AM HANDLE BAR ASSEMBLER us Dionicio Levin MD LAB BLOOD ORDERABLES Final Resu lt Performing Organization Address City/[facility]/ZIP Co de Phone Number JUDITH THOMPSON ([place]) [address] [facility] [place] [address] * eGFR (09/11/2024 11:22 PM HANDLE BAR ASSEMBLER) eGFR 69 >=60 mL/min/1. 73 m2 Comment: [...] reviewed 2021. Blood 09/11/2024 11:2 2 PM HANDLE BAR ASSEMBLER 09/11/2024 11:22 PM HANDLE BAR ASSEMBLER us Valdez Lee MD LAB BLOOD ORDERABLES Final R esult JUDITH THOMPSON ([place]) [address] [facility] [place] [address] from Last 3 Months or Most Recently Relevant to Health Maintenance Insurance [facility] Advance Directives For more information, please contact: [phone] * LIMITED - No CPR (Latest Code [...] 1:26 AM 09/12/2024 5:23 AM Care Teams Site Coordinator Relationship Specialty Start Date End Date Sadia Morris NP [facility] [place] [place] [address] PCP - General Nurse Practitioner 02/28/24
--- OUTSIDE RECORDS SUMMARY | 2025-08-14 21:51 | XMS_ITS | Clinical Summary ---
Author Organization [facility] Address [address] [place] [address] Care Team Providers Care Performance Makeup Artist Name Role Phone Natacha Hoyt MD Primary Care Provider Allergies Active Allergy Reactions Criticality Noted Date Comments Bowie Oil Hives 09/24/2017 Medications Topiramate 200 MG [...] 07/18/2021 Kidney stone 07/17/2021 Cellulitis 06/04/2021 Sepsis 06/01/2021 Chest pain 07/14/2020 Nystagmus 09/17/2019 Menometrorrhagia 04/24/2018 Menorrhagia with regular cycle 02/24/2018 Anemia due to multiple mechanisms 02/06/2018 Thrombocytopenia 02/06/2018 Gastroesophageal reflux disease without esophagi tis 11/16/2017 Hyperlipidemia 11/16/2017 Cirrhosis of liver 11/16/2017 Overview (06/01/2021): Overview: Liver biopsy performed [...] fibrosis. Obesity 11/16/2017 Type 2 diabetes mellitus without complications 0 11/16/2017 Mediastinal lymphadenopathy 05/30/2017 Abdominal lymphadenopathy 04/11/2017 Hepatosplenomegaly 04/11/2017 Liver lesion 04/11/2017 Coalition, talocalcaneal 04/30/2016 Foot fracture 01/31/2016 Immunizations Immunization Administration [...] Former Cigarettes 1 13 1 994 - 2007 Smokeless Tobacco: Never Alcohol Use Standard [...] CDT Gender Identity Female 12/01/2021 10:08 AM ASSISTED LIVING ADMINISTRATOR Sexual Orientation Straight 12/01/2021 10 :08 AM ASSISTED LIVING ADMINISTRATOR Last Filed Vital Signs Vital Sign Reading [...] 12/03/2021 06/02/2021, 09/17/2019 COVID-19 Vaccine (1 - 2024-2 6 season) 2025 Influenza Adult (#1) 2025 07/15/2020, 09/14/2019 Hepatitis C Completed 12/09/2015 Hepatitis A Vaccines Completed 06/04/2019, 01/01/2019, 12/04/2018 Hepatitis B Vaccines Completed 06/04/2019, 01/01/2019, 12/04/2018 [...] Hurley RN Medical Devices Implanted Type Area Fund Accounting Manager Device Identifier Shelf Expiration Date Model / Serial / Lot Stent Ureteral [place] Sci Contour 6fr X 28cm - [id number] Implanted:Qty : 1 on 08/15/2021 by Fransico Hunter MD at [facility] Stent Right: Ureter [employer] [id number] 02/24/2024 [id number] 40 / / [id number] Explanted Type Area Fund Accounting Manager Device Identifier Shelf Expiration Date Model / Serial / Lot Stent Uret 6fr 28cm Pigtl Crv Taper Tip Bldr Mrk - [id number] Implanted:Qty : 1 on 07/18/2021 by Fransico Hunter MD at [facility] Explanted:Qty : 1 on 08/15/2021 at [facility] Stent Right: Ureter [employer] [id number] 05/25/2024 [id number] 40 / / [id number] Procedures Procedure Name Priority Date/Time Associated Diagnosis Comments HEMOGLOBIN, GLYCOSYLATED STAT 06/02/2021 6:50 AM CDT LIPID PANEL Routine 07/15/2020 4:09 AM CDT HEPATITIS A,B,& C Routine 12/09/2015 9:2 0 AM ASSISTED LIVING ADMINISTRATOR from Last 3 Months or Most Recently Relevant to Health Maintenance Results * (ABNORMAL) HEMOGLOBIN, GLYCATED (06/02/2021 6:50 AM CDT) HGB A1C 9.0(H) <5.7 % 06/02/2021 9:44 AM CDT [facility] Comment: ADA GUIDELINES 2009 5.7 TO 6.4% INCREASED RISK OF DIABETES > OR = 6.5% CONSISTENT WITH DIABETES ESTIMATED AVG GLUCOSE 212 mg/dL 06/02/2021 9:44 AM CDT [facility] 06/02/2021 6:50 AM CDT us Fransisca Staley MD LABORATORY Final Resul t [facility] [address] [place] [address], * (ABNORMAL) LIPID PANEL (07/15/2020 4:09 AM CDT) CHOLESTEROL 130 <200 MG/DL 07/15/2020 4:53 AM CDT [facility] TRIGLYCERIDES 206(H) <150 MG/DL 07/15/2020 4:53 AM CDT [facility] HDL 38(L) >40.0 MG/DL 07/15/2020 4:53 AM CDT [facility] LDL (CALCULATED) 51 <100 MG/DL 07/15/2020 4:53 AM CDT [facility] NON HDL CHOLESTEROL 92 <130 MG/DL 07/15/2020 4:53 AM CDT [facility] CHOL/HDL RATIO 3.4 0.0 - 4.5 07/15/2020 4:53 AM CDT [facility] VLDL CALCULATION 41 5 - 55 MG/DL 07/15/2020 4:53 AM CDT [facility] LIPID INTERPRETATION 07/15/2020 4:53 AM CDT [facility] Comment: NIH CONCENSUS REPORT RECOMMENDATIONS: [...] LABORATORY Final Re sult Performing Organization Address [facility] Co de Phone Number [facility] [address] [place] [phone], * HEPATITIS A,B,& C (12/09/2015 9:20 AM ASSISTED LIVING ADMINISTRATOR) HAV IGM NON-REACTI VE NR [facility] TO EPIC CONVERSION HEPATITIS B SURFACE AG NON-REACTI VE NR [employer] TO EPIC CONVERSION HEP B SURFACE AB NON-REACTI VE [facility] TO EPIC CONVERSION HEP B CORE TOTAL AB NON-REACTI VE NR [employer] TO EPIC CONVERSION HEPATITIS C AB NON-REACTI VE NR [employer] TO EPIC CONVERSION 12/09/2015 9:20 AM ASSISTED LIVING ADMINISTRATOR 12/09/2015 9:20 AM ASSISTED LIVING ADMINISTRATOR Narrative [employer] TO EPIC CONVERSION - 12/09/2015 10:57 AM ASSISTED LIVING ADMINISTRATOR Result Communication: No patient communication needed at this time Robbin Caban MD LABORATORY Final Result [employer] TO EPIC CONVERSION from Last 3 Months or Most Recently Relevant to Health Maintenance Insurance [employer] [facility] Advance Directives * Full Code (Latest Code [...] 3:50 PM 04/25/2018 2:42 PM Care Teams Performance Makeup Artist Relationship Specialty Start Date End Date Natacha Hoyt MD [address] [place] [address] PCP - General FAMILY PRACTICE 06/11/21
--- OUTSIDE RECORDS SUMMARY | 2025-08-14 21:51 | XMS_ITS | Encounter Summary ---
Author Organization [facility] Address [address] [place] [address] Care Team Providers Care Snowmaker Name Role Phone Natacha Hoyt MD Primary Care Provider Encounter Details Date Type Department Care Team (Late st Contact Info) Description 08/09/2021 Prep for Procedure [facility] [address] [place], [place] [id number] Fransico Hunter MD [address] [place] [address] [place] [address] Social History Tobacco Use Types Packs/Day Years [...] CDT Gender Identity Female 12/01/2021 10:08 AM DETAILER PHARMACEUTICALS Sexual Orientation Straight 12/01/2021 10 :08 AM DETAILER PHARMACEUTICALS COVID-19 Exposure Response Date Recorded In the [...] documented as of this encounter Care Teams Snowmaker Relationship Specialty Start Date End Date Natacha Hoyt MD [address] [place] [address] PCP - General FAMILY PRACTICE 06/11/21 documented as of this encounter
--- OUTSIDE RECORDS SUMMARY | 2025-08-14 21:51 | XMS_ITS | Encounter Summary ---
Author Organization [facility] Address [address] [place] [address] Care Team Providers Care Police Liaison Name Role Phone Natacha Hoyt MD Primary Care Provider Encounter Details Date Type Department Care Team (Late st Contact Info) Description 01/08/2022 MyChart Message Enc [facility] Medical Group Multispecialty Care - [facility] [address] [facility], [address] [place] [address] Fransico Hunter MD [address] [place] [address] [place] [address] Kub Social History Tobacco Use Types Packs/Day [...] CDT Gender Identity Female 12/01/2021 10:08 AM 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
--- OUTSIDE RECORDS SUMMARY | 2025-08-14 21:51 | XMS_ITS | Encounter Summary ---
Author Organization [facility] Address [address] [place] [address] Care Team Providers Care Kids Activities Coach Name Role Phone Roxana Martins NP Primary Care Provider [phone] Natacha Hoyt MD Primary Care Provider Encounter Details Date Type Department Care Team (Late st Contact Info) Description 06/08/2021 Hospital Follow-up Call [facility] [place] [address] Rosi Aguilera, RN Social History Tobacco Use [...] CDT Gender Identity Female 12/01/2021 10:08 AM AUDIO NARRATOR Sexual Orientation Straight 12/01/2021 10 :08 AM AUDIO NARRATOR COVID-19 Exposure Response Date Recorded In the [...] PM CDT Ronen Calabrese RN Active * Ellis Suicide Severity Rating Scale (Screener/Recent Self-Report) Question [...] documented as of this encounter Care Teams Kids Activities Coach Relationship Specialty Start Date End Date Roxana Martins NP PCP - General NURSE PRACTITIONER 12/05/20 06/10/21 Natacha Hoyt MD [address] [place] [address] PCP - General FAMILY PRACTICE 06/11/21 documented as of this encounter
--- OUTSIDE RECORDS SUMMARY | 2025-08-14 21:51 | XMS_ITS | Patient Health Record ---
Author Organization [facility] Address [address] [place] [address] Care Team Providers Care Residential Supervisor Name Role Phone Allie Lopez Primary Care Provider [phone] Allergies Allergen (clinical drug ingredient) Drug/Non Drug Allergy documented on EMR Reaction Allergy Type Onset Date Status [place] Oil sunflower oil (uncoded) rash Allergy Active [...] Status Risk Notes Problem Generalized anxiety disorder (70522366) Generalized anxiety disorder (F41.1) Active confirmed Problem Bipolar 1 disorder (151317274) Bipolar 1 disorder (F31.9) Active confirmed Problem Tobacco user (003385127) Nicotine addiction (F17.200) Active confirmed Encounters Encounter Location Date Provider Diagnosis [address] [address] 08/18/2024 Allie Lincoln Bipolar 1 disorder F31.9 and Nicotine addiction F17.[address] [address] 09/29/2024 Allie John Bipolar 1 disorder F31.9 and Nicotine addiction F17.[address] [address] 12/01/2024 Allie John Bipolar 1 disorder F31.[address] [address] 02/23/2025 Allie Lincoln Bipolar 1 disorder F31.9 and Nicotine addiction F17.[address] [address] 06/03/2025 Allie Lincoln Bipolar 1 disorder F31.9 and Nicotine addiction F17.200 [place] [address] [place] [address] 10/12/2024 Allie Lopez [facility] [place] [address] 05/11/2025 Allie Lopez Bipolar 1 disorder F31.9 [...] in mood or behavior. Confirmed knowledge of [facility] hotline [phone] for clients 20 and under and [place] Crisis line [phone] and awareness of 988. SSRI Discussed possible side effects: GI upset, headache, decreased libido/anorgasmia, weight gain, signs of serotonin syndrome and risk of activation to suicidality Plan Of Treatment No Information Insurance Providers Payer Name Payer Address Payer Phone Subscriber Number Group Number Insured Name Patient Relationship to Insured Coverage Start Date Coverage End Date [facility] Att Claims Department [address] [place] [id number] [phone] [id number] Beulah Fung Self - patient is the insured 3 [employer] Attn Claims Department [address] [place] [address] [phone] [id number] Beulah Fung Self - patient is the insured 3 Medical (General) History Medical History History ICD Code type II diabetes hypertension nephrolithiasis LOVE migraine headache Surgical History Surgery Date(Month/Year) hysterectomy due to fibroids 2018 cholecystectomy carpal/cubital tunnel Hospitalization History Reason Date(Month/Year) suicide attempt by self harm and attempt ed overdose 10/02
--- OUTSIDE RECORDS SUMMARY | 2025-08-14 21:51 | XMS_ITS | Encounter Summary ---
Author Organization [facility] Address [address] [place] [address] Care Team Providers Care Crossword Puzzle Maker Name Role Phone Eber Sebastian MD Primary Care Provider Roxana Martins NP Primary Care Provider [phone] Natacha Hoyt MD Primary Care Provider Encounter Details Date Type Department Care Team (Late st Contact Info) Description 07/18/2020 Hospital Follow-up Call [facility] [place] [address] Rosi Aguilera, RN Social History Tobacco Use [...] CDT Gender Identity Female 12/01/2021 10:08 AM FARO DEALER Sexual Orientation Straight 12/01/2021 10 :08 AM FARO DEALER COVID-19 Exposure Response Date Recorded In the [...] documented as of this encounter Care Teams Crossword Puzzle Maker Relationship Specialty Start Date End Date Eber Sebastian MD [address] [place] [address] PCP - General FAMILY PRACTICE 09/24/17 12/04/20 Roxana Martins NP [address] [place] [address] PCP - General NURSE PRACTITIONER 12/05/20 06/10/21 Natacha Hoyt MD [address] [place] [address] PCP - General FAMILY PRACTICE 06/11/21 documented as of this encounter
--- OUTSIDE RECORDS SUMMARY | 2025-08-14 21:51 | XMS_ITS | Encounter Summary ---
Author Organization [facility] Address [address] [place] [address] Care Team Providers Care Wellness Nurse Rn Name Role Phone Sadia Morris Unavailable Sabine Parker WATER PLANT OPERATOR-CNC MACHINIST 2ND SHIFT Primary Care Provider Encounter Details Date Type Department Care Team (Late st Contact Info) Description 06/24/2025 Results Follow-Up [facility] 7S ACUTE [address] [place] [phone] Salomon Sapp MD [address] [place] [address] Social History Tobacco Use Types Packs/Day Years [...] and heating? Not hard at all 06/15/2025 [facility] [place] [facility] - Occupational Stress [...] time in the past 12 m [facility], were you homeless or living in a usp (including now)? No 06/15/2025 Comments No Sex and Gender Information Value Date Recorded Sex Assigned at Female 04/21/2024 2:38 PM CDT Legal Sex Female 5:23 PM HEALTH INFORMATION INTERNSHIP Gender Identity Female 04/21/2024 2:38 PM CDT [...] st Contact Info) Description 09/21/2025 3:30 PM HEALTH INFORMATION INTERNSHIP Office Visit [facility] [place] [address] [place] [address], [place] [address] Salomon Sapp MD [address] [place] [address] [address] [facility] [place] [address] 09/24/2025 9:30 AM HEALTH INFORMATION INTERNSHIP Appointment [facility] [address] [place] [phone] Salomon Sapp MD [address] [place] [address] [address] [place] [address] documented as of this encounter Goals Goal Patient Goal Type Associated Problems Recent Progress Patient-Stated? Author Medication Management General On track( 1:27 PM CDT) Mary Kay Andrade RN [...] on filedocumented in this encounter Care Teams Wellness Nurse Rn Relationship Specialty Start Date End Date Sabine Parker APRN-CNC MACHINIST 2ND SHIFT [address] [place] [phone] PCP - General Nurse Practitioner Family 05/07/25 Sadia Morris [facility] [address] [place], [place] [phone] 09/13/24 documented as of this encounter
--- OUTSIDE RECORDS SUMMARY | 2025-08-14 21:51 | XMS_ITS | Encounter Summary ---
Author Organization [facility] Address [address] [place] [address] Care Team Providers Care Nurse Healthcare Manager Name Role Phone Natacha Hoyt MD Primary Care Provider Encounter Details Date Type Department Care Team (Late st Contact Info) Description 12/03/2021 MyChart Message Enc [facility] Medical Group Multispecialty Care - [facility] 3 [facility], [address] [place] [address] Fransico Hunter MD [address] [place] [address] [place] [address] Bun Social History Tobacco Use Types Packs/Day [...] CDT Gender Identity Female 12/01/2021 10:08 AM PAYROLL MACHINE OPERATOR Sexual Orientation Straight 12/01/2021 10 :08 AM PAYROLL MACHINE OPERATOR COVID-19 Exposure Response Date Recorded In the last 10 days, have ricco anglin been in contact with someone who was confirmed or suspected to have Coronavirus/COVID-19? No / Unsure 12/01/2021 9:21 AM PAYROLL MACHINE OPERATOR documented as of this encounter Functional [...] Total Score: 0 08/30/20 21 11:05 AM PAYROLL MACHINE OPERATOR documented as of this encounter Care Teams Nurse Healthcare Manager Relationship Specialty Start Date End Date Natacha Hoyt MD [address] [place] [address] PCP - General FAMILY PRACTICE 06/11/21 documented as of this encounter
--- OUTSIDE RECORDS SUMMARY | 2025-08-14 21:51 | XMS_ITS | Encounter Summary ---
Author Organization [facility] Address [address] [place] [address] Care Team Providers Care Public Health Name Role Phone Eber Sebastian MD Primary Care Provider Roxana Martins NP Primary Care Provider [phone] Natacha Hoyt MD Primary Care Provider Encounter Details Date Type Department Care Team (Late st Contact Info) Description 09/28/2020 MyCUforat Message Enc [facility], [facility] [address] [place], [place] [phone] Nay Tanner, RESTAURANT COOK-C Three [facility]. [facility] [address] [place], [place] [id number] RE: Other Social History Tobacco Use Types [...] CDT Gender Identity Female 12/01/2021 10:08 AM HUMAN RESOURCES CONSULTANT Sexual Orientation Straight 12/01/2021 10 :08 AM HUMAN RESOURCES CONSULTANT documented as of this encounter Functional Status [...] CST Sonia see note and call patient N RESOURCES CONSULTANT documented in this encounter Plan of Treatment [...] documented as of this encounter Care Teams Public Health Relationship Specialty Start Date End Date Eber Sebastian MD [address] [place] [address] PCP - General FAMILY PRACTICE 09/24/17 12/04/20 Roxana Martins NP [address] [place] [address] PCP - General NURSE PRACTITIONER 12/05/20 06/10/21 Natacha Hoyt MD [address] [place] [address] PCP - General FAMILY PRACTICE 06/11/21 documented as of this encounter
--- NOTE | 2025-08-14 22:14 | ED_ITS ---
HPI - Abdominal Pain General Chief Complaint: Abdominal Pain <Carmecnita Werner APRN - Last Filed: 08/15/25 03:35> Stated Complaint: ABDOMINAL PAIN <Carmencita Werner APRN - Last Filed: 08/15/25 03:35> Time Seen by Provider: 08/14/25 20:48 <Carmencita Werner APRN - Last Filed: 08/15/25 03:35> History of Present Illness HPI narrative: Patient is a 44-year-old female who presents to the ER with abdominal pain. She reports her symptoms have been going on for while but they became acute earlier today. Patient reports she has a liver specialist at [facility] who had to tap her abdomen for fluid approximately 2-3 weeks ago. She reports they have put her on water pills but these have not helped relieve her symptoms. Patient endorses a history of liver cirrhosis, diabetes, anemia, and migraines. She reports her blood sugars have been running between 180 and 200 recently. Patient denies any alcohol use. <Carmencita Werner APRN - Last Filed: 08/15/25 03:35> Related Data Home Medications: Home Medications ?Medication ?Instructions ?Recorded ?Confirmed ?Last Taken ?Type buspirone 15 mg tablet 15 mg PO BID 10/25/2203/04/25 History prazosin 2 mg capsule 2 mg PO QHS 01/27/24 5 03/03/25 History cholecalciferol (vitamin D3) 50 50 mcg PO DAILY 05/21/25 03/04/25 History mcg (2,000 unit) capsule (Vitamin D3) ferrous sulfate 325 mg (65 mg 325 mg PO DAILY 07/24/24 05/21/25 03/04/25 History iron) tablet vitamin B complex 1 tablet PO DAILY 07/24/24 0 05/21/25 12/07/24 History cariprazine 6 mg capsule (Vraylar) 6 mg PO DAILY 09/2105/21/25 03/04/25 History carvedilol 6.25 mg tablet mg 06/30/25 Unknown History doxepin 25 mg capsule mg 06/30/25 Unknown History hydroxyzine HCl 25 mg tablet mg 06/30/25 Unknown Hist ory <Carmencita Werner APRN - Last Filed: 08/15/25 03:35> Allergies/Adverse Reactions: Allergies Allergy/AdvReac Type Severity Reaction Status Date / Time sunflower oil Allergy Intermediate Hives Verified 06/30/25 14:18 sumatriptan (From Imitrex) AdvReac Intermediate Muscle Verified 06/30/25 14:18 Spasms <Carmencita Werner APRN - Last Filed: 08/15/25 03:35> Review of Systems 2 Review of Systems: All systems reviewed & are unremarkable except as noted in HPI and below <Carmencita Werner APRN - Last Filed: 08/15/25 03:35> [facility] Past Medical History Medical History: Medical History Abnormal CT scan Type 2 diabetes mellitus (~2006) Rectal bleeding Left knee pain Medial meniscus tear Chronic nausea Gastroesophageal reflux disease Esophageal varices determined by endoscopy Irritable bowel syndrome with alternating bowel habits Portal hypertensive gastropathy Cirrhosis Bipolar 2 disorder Alopecia Cat scratch of forearm Body mass index (BMI) 35 or more (05/05/19) Vaginal yeast infection Type 2 diabetes mellitus with hyperglycemia Benign essential hypertension Abnormal vaginal bleeding Abnormal CT of brain Nausea & vomiting Hx of renal calculi (~07/2021) Portal hypertension (~07/2021) Chronic GERD Ganglion cyst Vitamin D deficiency Dyslipidemia BMI 40.0-44.9, adult Anxiety and depression HTN (hypertension) Type 2 diabetes mellitus with other circulatory complications (~2006) Avulsion fracture of right calcaneus with delayed healing (~2016) Other and unspecified hyperlipidemia (~2018) Hypertension complicating diabetes (~2013) Iron deficiency anemia due to chronic blood loss (~2016) machine ii cutter: Dr. Casillas: [facility] Microalbuminuria due to type 2 diabetes mellitus (~2017) Migraine without aura, not intractable, with status migrainosus (~1992) meds tried: midrin (helpful), imitrex (no help), zomig, topamax (helpful) Recurrent major depressive disorder in partial remission (~1992) Renal cyst, acquired (~2011) Hyperlipidemia associated with type 2 diabetes mellitus (~2018) Unspecified cirrhosis of liver (~2014) LOVE <Carmencita Werner APRN - Last Filed: 08/15/25 03:35> Surgical History Surgical History: Surgical History History of urethral stent (~07/2021) H/O: hysterectomy H/O left knee surgery Status post right foot surgery (~2018) History of cholecystectomy (~2018) <Carmencita Werner APRN - Last Filed: 08/15/25 03:35> Family History Family History: Family History Father Hypertension Cerebrovascular accident Family history of diabetes mellitus in first degree relative Diabetes mellitus Mother Hypertension Other Family history of Alzheimer's disease Family history of cardiovascular disease Family history of chronic obstructive pulmonary disease Family history of congestive heart failure Family history of hearing loss Family history of migraine headaches Family history of obesity <Carmencita Werner APRN - Last Filed: 08/15/25 03:35> Social History Social History: Social History Social History: , no children. Unemployed. Caffeine-rarely Smoking packs per day: 1 Smoking cigarettes per day: 20.0 Years smoked: 13 Smoking pack-years: 13.00 Smoking status: Current every day smoker Tobacco type: e-cigarettes/vaping Smoking end date: 10/14/06 Alcohol intake: former Drinks per week: 1 Substance use: never Substance use type: does not use Last use: Quit 1996 Do You Feel Safe in your Home?: Yes Lack of Transportation: No Lack of Food: Never True Current Housing: I Have Housing Concerned About Future Housing: No Difficulty Paying Gas/Electric Bills: No Difficulty Paying for Meds: No Currently Unemployed: No Education: Associate Degree Difficulty w/ Childcare or Family Care: No Living arrangements: with family Additional living arrangements comments: lives with soon to be x- Occupation/Education: occupation Gender identity (if verbalized by the patient): Female Spiritual care concerns: No Agree to blood products: Yes <Carmencita Werner APRN - Last Filed: 08/15/25 03:35> Exam 2 Narrative: GENERAL: Well appearing, well-nourished, non-toxic, in no acute distress. HEAD: Normocephalic, atraumatic. NECK: Supple. No adenopathy, no masses. RESPIRATORY: Airway patent, respirations nonlabored. Clear to auscultation bilaterally, no rales, rhonchi, wheezing. CARDIOVASCULAR: Regular rate and rhythm without murmurs, rubs, or gallops. Peripheral pulses 2+ and equal bilaterally. ABDOMINAL: Soft, tenderness LUQ and RUQ, + distended. Normoactive BS. MUSCULOSKELETAL: Moves all extremities. Strength/ROM intact without gross deformities. SKIN: Warm, dry, normal color. No rashes. NEURO: A&O X3. Speech clear. Cranial nerves II-XII intact. No ataxic movements. PSYCHIATRIC: Appropriate mood and affect. Normal interaction. <Carmencita Werner APRN - Last Filed: 08/15/25 03:35> Course Course Emergency Course: Pending transfer S unit arranged for transfer to [facility] ER. Patient is on midodrine t.i.d.. Given a dose here in the emergency department while waiting. Soft blood pressures but chronic and maps above 65 without any symptoms. Awaiting ambulance and patient care signed over to morning physician pending transfer. <Handy Nassar MD - Last Filed: 08/15/25 06:45> [employer]/PA Physician Supervision This visit was performed by both a physician and an APC. I performed all aspects of the MDM as documented. <Handy Nassar MD - Last Filed: 08/15/25 06:45> Vital Signs Vital signs: Vital Signs Temperature 97.6 F 08/14/25 20:35 Pulse Rate 78 08/14/25 20:35 Respiratory Rate 16 08/14/25 20:35 Blood Pressure 94/64 L 08/14/25 20:35 Pulse Oximetry 100 08/14/25 20:35 Oxygen Delivery Room Air 08/14/25 20:35 Temperature 97.6 F 08/14/25 20:35 Pulse Rate 80 08/15/25 09:42 Respiratory Rate 14 08/15/25 09:42 Blood Pressure 98/80 L 08/15/25 09:42 Pulse Oximetry 100 08/15/25 09:42 Oxygen Delivery Room Air 08/14/25 20:35 <Carmencita Werner APRN - Last Filed: 08/15/25 03:35> Vital Signs Temperature 97.6 F 08/14/25 20:35 Pulse Rate 78 08/14/25 20:35 Respiratory Rate 16 08/14/25 20:35 Blood Pressure 94/64 L 08/14/25 20:35 Pulse Oximetry 100 08/14/25 20:35 Oxygen Delivery Room Air 08/14/25 20:35 Temperature 97.6 F 08/14/25 20:35 Pulse Rate 80 08/15/25 09:42 Respiratory Rate 14 08/15/25 09:42 Blood Pressure 98/80 L 08/15/25 09:42 Pulse Oximetry 100 08/15/25 09:42 Oxygen Delivery Room Air 08/14/25 20:35 <Handy Nassar MD - Last Filed: 08/15/25 06:45> MDM - Abdominal Pain MDM Narrative Medical decision making narrative: Patient is a 44-year-old female who presents to the ER with abdominal pain. She reports her symptoms have been going on for while but they became acute earlier today. Patient reports she has a liver specialist at [facility] who had to tap her abdomen for fluid approximately 2-3 weeks ago. She reports they have put her on water pills but these have not helped relieve her symptoms. Patient endorses a history of liver cirrhosis, diabetes, anemia, and migraines. She reports her blood sugars have been running between 180 and 200 recently. Patient denies any alcohol use. Labs Ordered: CBC, CMP, UA, PTT, INR, ethanol, lipase Imaging Ordered: CT abdomen pelvis with contrast Medications Ordered: Midodrine PO Results: Patient's CBC indicates white blood cell count 2.6, red blood cell count of 3.69, hemoglobin of 10.5, hematocrit of 34.3%. Her coags indicated a PT of 15.9 seconds, INR of 1.3, and APTT of 47.9 seconds. Patient's chemistry indicates a chloride of 109, glucose of 118, AST of 40, total protein 6.0, albumin of 3.4. Her urinalysis indicates 3+ protein, 2+ glucose, trace ketones, 4+ blood, trace leukocytes, greater than 100 rbcs, 6-10 white blood cell count. Diagnosis: large volume ascites, hepatic cirrhosis, need for paracentesis Consults: 0230- Spoke with retail sales associate bilingual, Dr. Dawson, who reports he is unable to drain pt's abdomen here, as there is no IR coverage in the morning. 0245- Spoke with [facility] transfer center who will reach out to their GI specialist for consult. 0300-Spoke with Gastroenterology, Dr. Sebastian, who reports patient can proceed to the emergency department if she needs immediate draining, otherwise she can and call her gastroenterology office on Saturday morning to schedule a paracentesis through them. 0300- Spoke with ER physician, Dr. Garcia, who agrees to accept pt to the ER for paracentesis. Pt will be transferred via BLS transport. Results of imaging and lab work shared with patient. It was advised patient be transferred to [facility], where her specialist is located, for a paracentesis, as that service is not available here at [place]. Patient verbalized understanding and is in agreement with plan. <Carmencita Werner APRN - Last Filed: 08/15/25 03:35> Differential Diagnosis Differential diagnosis: Likely abdominal pain, constipation, gastroenteritis and other (Ascites, hepatic cirrhosis, hematuria) <Carmencita Werner APRN - Last Filed: 08/15/25 03:35> Lab Data Attestation: I reviewed the patient's lab results. <Carmencita Werner APRN - Last Filed: 08/15/25 03:35> Result diagrams: 08/14/25 23:13 08/14/25 23:13 <Carmencita Werner FINANCIAL SALES REPRESENTATIVE - Last Filed: 08/15/25 03:35> Labs: Lab Results 08/14/25 Range/Units 23:13 WBC 2.6 L (4.5-10.0) K/mm3 RBC 3.69 L (4.2-5.4) M/mm3 Hgb 10.5 L (12.0-15.0) g/dL Hct 34.3 L (37.0-47.0) % MCV 93.0 (80-100) fl MCH 28.5 (26-34) pg MCHC 30.6 L (32-36) g/dl RDW 13.9 (11.5-14.5) % Plt Count 55 L (150-375) k/mm3 MPV 10.9 H (7.4-10.4) fl Immature Gran % (Auto) 0.4 (0-0.5) % Neut % (Auto) 64.1 (45.5-73.1) % Lymph % (Auto) 23.4 (18.3-44.2) % [place] % (Auto) 6.6 (2.6-8.5) % Eos % (Auto) 4.7 H (0-4.4) % Baso % (Auto) 0.8 (0.2-1.2) % Lymph # (Auto) 0.60 L (0.9-3.2) K/mm3 [place] # (Auto) 0.2 (0.1-0.6) K/mm3 Eos # (Auto) 0.1 (0-0.3) K/mm3 Baso # (Auto) 0.0 (0.0-0.1) K/mm3 Abs Immat Gran (auto) 0.01 (0.00-0.031) K/mm3 Absolute Neuts (auto) 1.6 (1.3-6.7) K/mm3 Absolute Nucleated RBC 0.000 (0.0-0.012) K/mm3 Band Neutrophils % Not Reportable Nucleated RBC % 0.0 (0.0-0.2) % Platelet Estimate Decreased (Adequate) % Immature Plt Fraction 3.3 (0.9-11.2) % Anisocytosis 1+ Ovalocytes Occasional Schistocytes None seen PT 15.9 H (11.1-14.7) Seconds INR 1.3 APTT 47.9 H (22.3-36.8) Seconds Sodium 140 (137-145) mmol/L Potassium 3.5 (3.4-5.0) mmol/L Chloride 109 H (98-107) mmol/L Carbon Dioxide 24 (22-30) mmol/L Anion Gap 7 (4-12) mmol/L BUN 14 D (7-17) mg/dL Creatinine 0.97 (0.7-1.0) mg/dL Estim Creat Clear Calc 62 ml/min Estimated GFR > 60 (59 - ) Glucose 118 H (65-110) mg/dL Calcium 8.8 (8.4-10.2) mg/dL Total Bilirubin 0.5 (0.2-1.3) mg/dL AST 40 H (14-36) U/L ALT 31 (6-35) U/L Alkaline Phosphatase 92 (38-126) U/L Total Protein 6.0 L (6.3-8.2) g/dL Albumin 3.4 L (3.5-5.1) g/dL Lipase 81 (23-300) U/L Urine Color Red H (Yellow) Urine Appearance Turbid H (Clear) Urine pH 6.0 (5.0-9.0) Ur Specific Bucks 1.020 (1.001-1.035) Urine Protein 3+ H (Negative) mg/dL Urine Glucose (UA) 2+ H (Negative) mg/dL Urine Ketones Trace H (Negative) mg/dL Ur Blood (Man) 4+ H (Negative) Urine Nitrate Negative (Negative) Urine Bilirubin Negative (Negative) Urine Urobilinogen 0.2 (<2.0) mg/dL Add Ur Microanalysis Yes Leukocyte Esterase Rfl Trace H (Negative) KATIE/UL Urine RBC >100 H (0-2) /hpf Urine WBC 6-10 H (0-3) /hpf Ur Squamous Epith Cells Few (Few) /hpf Urine Bacteria 1+ /hpf Broad Casts Ethyl Alcohol < 10 (<10) mg/dL <Carmencita Werner, FINANCIAL SALES REPRESENTATIVE - Last Filed: 08/15/25 03:35> Lab Results 08/14/25 Range/Units 23:13 WBC 2.6 L (4.5-10.0) K/mm3 RBC 3.69 L (4.2-5.4) M/mm3 Hgb 10.5 L (12.0-15.0) g/dL Hct 34.3 L (37.0-47.0) % MCV 93.0 (80-100) fl MCH 28.5 (26-34) pg MCHC 30.6 L (32-36) g/dl RDW 13.9 (11.5-14.5) % Plt Count 55 L (150-375) k/mm3 MPV 10.9 H (7.4-10.4) fl Immature Gran % (Auto) 0.4 (0-0.5) % Neut % (Auto) 64.1 (45.5-73.1) % Lymph % (Auto) 23.4 (18.3-44.2) % [place] % (Auto) 6.6 (2.6-8.5) % Eos % (Auto) 4.7 H (0-4.4) % Baso % (Auto) 0.8 (0.2-1.2) % Lymph # (Auto) 0.60 L (0.9-3.2) K/mm3 [place] # (Auto) 0.2 (0.1-0.6) K/mm3 Eos # (Auto) 0.1 (0-0.3) K/mm3 Baso # (Auto) 0.0 (0.0-0.1) K/mm3 Abs Immat Gran (auto) 0.01 (0.00-0.031) K/mm3 Absolute Neuts (auto) 1.6 (1.3-6.7) K/mm3 Absolute Nucleated RBC 0.000 (0.0-0.012) K/mm3 Band Neutrophils % Not Reportable Nucleated RBC % 0.0 (0.0-0.2) % Platelet Estimate Decreased (Adequate) % Immature Plt Fraction 3.3 (0.9-11.2) % Anisocytosis 1+ Ovalocytes Occasional Schistocytes None seen PT 15.9 H (11.1-14.7) Seconds INR 1.3 APTT 47.9 H (22.3-36.8) Seconds Sodium 140 (137-145) mmol/L Potassium 3.5 (3.4-5.0) mmol/L Chloride 109 H (98-107) mmol/L Carbon Dioxide 24 (22-30) mmol/L Anion Gap 7 (4-12) mmol/L BUN 14 D (7-17) mg/dL Creatinine 0.97 (0.7-1.0) mg/dL Estim Creat Clear Calc 62 ml/min Estimated GFR > 60 (59 - ) Glucose 118 H (65-110) mg/dL Calcium 8.8 (8.4-10.2) mg/dL Total Bilirubin 0.5 (0.2-1.3) mg/dL AST 40 H (14-36) U/L ALT 31 (6-35) U/L Alkaline Phosphatase 92 (38-126) U/L Total Protein 6.0 L (6.3-8.2) g/dL Albumin 3.4 L (3.5-5.1) g/dL Lipase 81 (23-300) U/L Urine Color Red H (Yellow) Urine Appearance Turbid H (Clear) Urine pH 6.0 (5.0-9.0) Ur Specific Bucks 1.020 (1.001-1.035) Urine Protein 3+ H (Negative) mg/dL Urine Glucose (UA) 2+ H (Negative) mg/dL Urine Ketones Trace H (Negative) mg/dL Ur Blood (Man) 4+ H (Negative) Urine Nitrate Negative (Negative) Urine Bilirubin Negative (Negative) Urine Urobilinogen 0.2 (<2.0) mg/dL Add Ur Microanalysis Yes Leukocyte Esterase Rfl Trace H (Negative) KATIE/UL Urine RBC >100 H (0-2) /hpf Urine WBC 6-10 H (0-3) /hpf Ur Squamous Epith Cells Few (Few) /hpf Urine Bacteria 1+ /hpf Broad Casts Ethyl Alcohol < 10 (<10) mg/dL <Handy Nassar MD - Last Filed: 08/15/25 06:45> Imaging Data Attestation: I personally reviewed and interpreted this imaging study as follows: < Carmencita Werner APRN - Last Filed: 08/15/25 03:35> Radiologist's impression: ITS Impressions Abdomen/Pelvis CT 08/15/25 08:49 IMPRESSION: 1. Cirrhosis of the liver with portal venous hypertension. 2. Large volume of ascites. 3. Wall thickening of small bowel, which may be interstitial edema or less likely enteritis. Patient's CT scan indicates hepatic cirrhosis. Large volume ascites. Anasarca. Splenomegaly, measuring up to 19.1 cm. Mild wall thickening of small bladder, correlate for mild portal enteropathy versus enteritis. Right nephroureteral stent terminates in the urinary bladder. Left lower pole renal cyst measuring 2.9 cm. Cholecystectomy. <Carmencita Werner APRN - Last Filed: 08/15/25 03:35> ITS Impressions Abdomen/Pelvis CT 08/15/25 08:49 IMPRESSION: 1. Cirrhosis of the liver with portal venous hypertension. 2. Large volume of ascites. 3. Wall thickening of small bowel, which may be interstitial edema or less likely enteritis. <Handy Nassar MD - Last Filed: 08/15/25 06:45> Discharge Plan Discharge Clinical Impression: Cirrhosis, History of abdominal paracentesis, Abdominal ascites Abdominal pain Qualifiers: Abdominal location: generalized Qualified Code(s): R10.84 - Generalized abdominal pain <Carmencita Werner APRN - Last Filed: 08/15/25 03:35> Patient Disposition: [facility] <Carmencita Werner APRN - Last Filed: 08/15/25 03:35> Condition: Stable <Carmencita Werner APRN - Last Filed: 08/15/25 03:35> Instructions: Antibiotic Form <Carmencita Werner APRN - Last Filed: 08/15/25 03:35> Patient Language: Hungarian <Carmencita Werner APRN - Last Filed: 08/15/25 03:35> Prescriptions: No Action fluticasone propionate [Flonase Allergy Relief] 50 mcg/actuation spray,suspension 1 spray intranasal DAILY Qty: 16 0RF Rx Instructions: administer into each nostril carvedilol 6.25 mg tablet doxepin 25 mg capsule hydroxyzine HCl 25 mg tablet ibuprofen 600 mg tablet 600 mg PO QID Qty: 60 0RF (DME) OneTouch Verio test strips Strip See Rx Instructions .Route Qty: 100 11RF Rx Instructions: Monitor glucose 3-4 times a day prazosin 2 mg capsule 2 mg PO QHS Vraylar 6 mg capsule 6 mg PO DAILY Baqsimi 3 mg/actuation spray,non-aerosol 3 mg intranasal ONCE PRN (Reason: hypoglycemia) Qty: 1 0RF Rx Instructions: as a single dose buspirone 15 mg tablet 15 mg PO BID Mounjaro 12.5 mg/0.5 mL pen injector 12.5 mg subcut WEEKLY Qty: 6 1RF ferrous sulfate 325 mg (65 mg iron) Tablet 325 mg PO DAILY vitamin B complex Tablet 1 tablet PO DAILY cholecalciferol (vitamin D3) [Vitamin D3] 50 mcg (2,000 unit) Capsule 50 mcg PO DAILY ondansetron 4 mg tablet,disintegrating 4 mg PO Q8H PRN (Reason: nausea and vomiting) Qty: 15 0RF dicyclomine 20 mg tablet 20 mg PO TID PRN (Reason: Abdominal Discomfort) Qty: 15 0RF ondansetron 4 mg tablet,disintegrating 4 mg PO Q8H PRN (Reason: nausea and vomiting) Qty: 15 0RF amoxicillin-pot clavulanate 875-125 mg tablet 1 tablet PO Q12H 7 Days Qty: 14 0RF duloxetine 30 mg capsule,delayed release(DR/EC) 30 mg PO BID Qty: 180 1RF (DME) pen needle, diabetic [BD Ultra-Fine Shantelle Pen Needle] 32 gauge x 5/32 needle See Rx Instructions .ROUTE .MEDSUPPLY Qty: 300 1RF Rx Instructions: three times daily albuterol sulfate 90 mcg/actuation HFA aerosol inhaler 1 puff INHALATION Q4H PRN (Reason: shortness of breath or wheezing) Qty: 6.7 1RF dexlansoprazole 60 mg capsule,biphase delayed releas 60 mg PO DAILY 30 Days Qty: 30 12RF rizatriptan 5 mg tablet See Rx Instructions PO .COMPLEX PRN (Reason: Migraine Headache) Qty: 10 5RF Rx Instructions: take 1 tab at onset of headache; if no relief may repeat 1 tab after at least 2 hrs; max = 3 tabs/24 hr PO folic acid 1 mg tablet 1 mg PO DAILY Qty: 90 1RF atorvastatin 80 mg tablet 80 mg PO QHS Qty: 90 1RF lisinopril 2.5 mg tablet See Rx Instructions .ROUTE .COMPLEX Qty: 90 0RF Dose Instruction: Take 1 tablet by mouth once daily Rx Instructions: Take 1 tablet by mouth once daily pantoprazole 40 mg tablet,delayed release (DR/EC) See Rx Instructions .ROUTE .COMPLEX Qty: 90 1RF Dose Instruction: TAKE 1 TABLET BY MOUTH IN THE MORNING Rx Instructions: TAKE 1 TABLET BY MOUTH IN THE MORNING topiramate 200 mg tablet See Rx Instructions .ROUTE .COMPLEX Qty: 90 1RF Dose Instruction: Take 1 tablet by mouth once daily Rx Instructions: Take 1 tablet by mouth once daily Jardiance 25 mg tablet 25 mg PO DAILY Qty: 90 1RF (DME) AdviceIQ G7 Sensor Device See Rx Instructions .ROUTE .MEDSUPPLY Qty: 9 3RF Rx Instructions: Use to monitor glcuose midodrine 5 mg tablet 5 mg PO TID Qty: 270 1RF Rx Instructions: do not give last dose of day after 6PM or within 4 hrs of bedtime <Carmencita Werner APRN - Last Filed: 08/15/25 03:35> Follow-up/Referrals: Karin Hoyt MD [Primary Care Provider, Family Practice] <Carmencita Werner APRN - Last Filed: 08/15/25 03:35>
[2025-08-14 23:28] LABS: Hematocrit 34.3 % (37.0-47.0); Hemoglobin 10.5 g/dL (12.0-15.0); Immature Granulocyte Percent A 0.4 % (0-0.5); Immature Platelet Fraction Pct 3.3 % (0.9-11.2); Lymphocytes Absolute Auto 0.60 K/mm3 (0.9-3.2); Mean Corpuscular HGB Conc 30.6 g/dl (32-36); Mean Corpuscular Hemoglobin 28.5 pg (26-34); Mean Corpuscular Volume 93.0 fl (80-100); Nucleated Red Blood Cells Absolute Auto 0.000 K/mm3 (0.0-0.012); Nucleated Red Blood Cells Perc 0.0 % (0.0-0.2); Platelet Count Result 55 k/mm3 (150-375); Red Blood Count 3.69 M/mm3 (4.2-5.4); White Blood Count 2.6 K/mm3 (4.5-10.0)
[2025-08-14 23:40] LABS: Alanine Aminotransferase 31 U/L (6-35); Albumin Level 3.4 g/dL (3.5-5.1); Alkaline Phosphatase 92 U/L (38-126); Anion Gap 7 mmol/L (4-12); Aspartate Amino Transferase 40 U/L (14-36); Bilirubin,Total 0.5 mg/dL (0.2-1.3); Blood Urea Nitrogen 14 mg/dL (7-17); Calcium 8.8 mg/dL (8.4-10.2); Carbon Dioxide 24 mmol/L (22-30); Chloride 109 mmol/L (98-107); Estimated CRCL calculation 62 ml/min; Estimated Glomerular Filt Rate > 60; Glucose 118 mg/dL (65-110); Lipase 81 U/L (23-300); Potassium 3.5 mmol/L (3.4-5.0); Sodium 140 mmol/L (137-145); Total Protein 6.0 g/dL (6.3-8.2)
[2025-08-14 23:41] LABS: INR 1.3; Prothrombin Time 15.9 Seconds (11.1-14.7)
[2025-08-14 23:43] LABS: Partial Thromboplastin Time 47.9 Seconds (22.3-36.8)
[2025-08-14 23:52] LABS: Add Urine Microscopic? YES
[2025-08-14 23:56] LABS: Need Manual Microscopic Yes
[2025-08-15] VITALS (8 sets, daily range): BP systolic 85–99; BP diastolic 50–80; PULSE 71–84; RESP 14–18; O2SAT 94–100
[2025-08-15 00:02] LABS: Leukocyte Esterase Ur Trace LEU/UL (Negative); Nitrate Urine Negative (Negative)
[2025-08-15 00:03] LABS: Appearance Urine Turbid (Clear); Glucose Urine UA 2+ mg/dL (Negative); Specific Grav Ur 1.020 (1.001-1.035)
[2025-08-15 00:21] LABS: Anisocytosis 1+; Ovalocytes Occasional; Schistocytes None Seen
[2025-08-15] MEDS: MIDODRINE HCL 10 MG TABLET PO (03:02)
== END 2025-08-15 09:44 | disposition short-term general hospital (02) ==
PROVIDERS: Emergency Provider Registered Nurse; PCP Family Medicine
DX: K74.60 Unspecified cirrhosis of liver (principal); K76.6 Portal hypertension; R18.8 Other ascites; R10.84 Generalized abdominal pain; E11.9 Type 2 diabetes mellitus without complications; I15.2 Hypertension secondary to endocrine disorders; E78.5 Hyperlipidemia, unspecified; E55.9 Vitamin D deficiency, unspecified; D64.9 Anemia, unspecified; K21.9 Gastro-esophageal reflux disease without esophagitis; K58.2 Mixed irritable bowel syndrome; K75.81 Nonalcoholic steatohepatitis (NASH); F31.81 Bipolar II disorder; F41.9 Anxiety disorder, unspecified; Z87.442 Personal history of urinary calculi; Z87.891 Personal history of nicotine dependence; Z90.710 Acquired absence of both cervix and uterus; Z90.49 Acquired absence of other specified parts of digestive tract; Z79.899 Other long term (current) drug therapy; Z79.85 Long-term (current) use of injectable non-insulin antidiabetic drugs; Z79.84 Long term (current) use of oral hypoglycemic drugs; R93.3 Abnormal findings on diagnostic imaging of other parts of digestive tract
CPT/HCPCS: 36415; 74177; 80053; 81001; 82077; 83690; 85025; 85055; 85610; 85730; 87086; 99285; A9270; Q9967